=== PATIENT | male | born 1960 | race Caucasian/White ===

== ENCOUNTER 2023-04-04 12:19 | Inpatient (IN) ==
--- NOTE | 2023-04-04 12:35 | ED Triage Note ---
Date of Service April 04, 2023 History of Present Illness This patient was briefly evaluated while in triage. An abbreviated physical exam was performed. This patient is a 63-year-old Male who presents to the ED for evaluation of an injury to his arm from a cat. He went in for chemo (hx of pancreatic CA) and was found to have a fever. He states he was bitten and scratched by his cat a week ago. Physical Exam VITALS: Vitals are noted on the nurse's note and reviewed by myself. GENERAL: This is a 63-year-old male, in no acute distress, well-developed well- nourished. SKIN: Scabbed over lesions to the right forearm with surrounding erythema. MOUTH: Mucous membranes moist. HEART: Regular rate and rhythm without murmurs gallops or rubs. LUNGS: Clear to auscultation bilaterally without wheezes, rales or rhonchi. NEURO: Patient was alert and oriented to person place and time. Initial orders for labs and / or imaging were placed and patient was placed in the waiting area until a bed is available. Please see further documentation for the full ED course.
[2023-04-04] MEDS ORDERED: SODIUM CHLORIDE 0.9% 2,000 ML IV ONE (13:01)
--- NOTE | 2023-04-04 13:04 | Emergency Department Note ---
Impression & Plan Pneumonia, Acute hypokalemia, Cough ED Provider Note HISTORY OF PRESENT ILLNESS: Patient is a 63-year-old male presenting with fever and general malaise. He states that he was going in for a chemotherapy treatment today and had a fever of 101 and was referred to the ER. He has a history of liver cancer and pancreatic cancer. His last chemo treatment was a week ago. He states for the last 3 weeks he has had a nonproductive and persistent cough. He reports in the last few days has been feeling very rundown and fatigued. Denies any shortness of breath or chest pain. He had subjective fevers and chills yesterday. Denies any nausea or vomiting or abdominal pain. He states that his cat recently started scratching at his left arm and he noticed that it was a little bit more red than normal. ROS: as above PHYSICAL EXAM: Constitutional: Patient appears in no acute distress. HENT: Head: Normocephalic and atraumatic. Eyes: EOMI, PERRL Mouth/Throat: Mucous membranes moist. Neck: Trachea midline. Neck supple. Cardiovascular: Tachycardic with regular rhythm. No murmurs, rubs or gallops. Intact distal pulses. Pulmonary/Chest: No respiratory distress. Breath sounds clear and equal bilaterally. No wheezes or rales. Abdominal: Abdomen soft, no tenderness, rebound or guarding. Musculoskeletal: No edema, tenderness or deformity noted. Skin: Warm and dry. Multiple scratches abrasions to left forearm Psychiatric: Appropriate mood and affect for situation. Neurological: Alert and keenly responsive. CN II-XII grossly intact, moving all extremities equally and fully. MDM: - Vitals signs showed fever and tachycardia. - History obtained via patient. Patient presents with fever and general malaise. Patient reports he went to chemotherapy today to receive treatment when he was noted to have a fever and was referred to the ER. He has a history of liver and pancreatic cancer. His last chemo session was last week. He states for the last 3 weeks has had a nonproductive and persistent cough. He states has been feeling very rundown and fatigued. Denies any shortness of breath or chest pain. Reports subjective fevers and chills yesterday. - Chronic conditions affecting care: pancreatic and liver cancer - Differential diagnoses include, but are not limited to: Pneumonia; UTI; viral syndrome; ACS - Order placed for continuous cardiac monitoring. At this time, monitor showed rate of 91 bpm with normal sinus rhythm, per my interpretation. - External medical records reviewed. - Laboratory workup interpreted by myself showed leukopenia (WBC 4.01); hypokalemia (K 3.3); normal procalcitonin; normal lactate; normal procalcitonin - Blood cultures obtained - Patient given 2700 mL NS in ER for fluid resuscitation. Based on his ideal body weight, his sepsis fluid resuscitation would be 2672 mL - Patient started on IV rocephin and doxycycline. - Started on NS @ 125 cc/hr. - Given 1g IV acetaminophen for fever. - Biofire negative - CXR showed infiltrated in right lung, concerning for pneumonia, per my interpretation - Discussion was had with delinquency prevention social worker about patient's case and need for admission - Hospitalist consulted for admission - Patient admitted to [facility] Hospitalist service for further evaluation and management. ASSESSMENT AND PLAN: Diagnosis: pneumonia; cough; hypokalemia Plan: admit Past Med/Surg History Social History Smoking Status: Never smoker Hx Alcohol Use: Yes Preferred Language: Serbian marital status: Feels Safe at Home: Yes Allergies Allergies Allergy/AdvReac Type Severity Reaction Status Date / Time No Known Allergies Allergy Verified 08/10/22 14:55 Home Meds Home Medications Medication Instructions Recorded Confirmed allopurinol 300 mg tablet 300 mg PO QAM 05/02/22 04/04/23 diclofenac sodium 50 mg 50 mg PO TID PRN Pain 05/02/22 04/04/23 tablet,delayed release diltiazem HCl 120 mg capsule,24 120 mg PO DAILY 05/02/22 04/04/23 hr,extended release lisinopril 10 mg tablet 10 mg PO DAILY 05/02/22 04/04/23 aspirin 81 mg tablet,delayed 81 mg PO QAM 08/10/22 04/04/23 release finasteride 5 mg tablet 5 mg PO QAM 08/10/22 04/04/23 omeprazole 20 mg capsule,delayed 20 mg PO DAILYBB 08/10/22 04/04/23 release Fluorouracil 5-Fu 6,100mg 1 dose IV .ONCE 04/04/23 04/04/23 magnesium oxide 400 mg PO QAM 04/04/23 04/04/23 potassium chloride 10 mEq 10 meq PO AMHS 04/04/23 04/04/23 tablet,extended release Results & Data (ED) Vital Signs Vital Signs - 24 hr 04/04/23 12:33 04/04/23 13:25 04/04/23 13:11 Temperature 37.7 C H Temperature Source Oral Pulse Rate 129 H 117 H 117 H Pulse Rate from SpO2 Sensor 117 H Respiratory Rate 20 20 Respiratory Effort / Characteristics Non-Labored Spontaneous Respiratory Depth Normal Respiratory Pattern Regular Blood Pressure 126/76 124/85 Blood Pressure Mean 92 98 Pulse Oximetry 96 95 Oxygen Delivery Method Room Air Room Air Sepsis Recent Fever Within 48 Hours No Sepsis New/Unexplained Change in Mental Status No Sepsis Action Taken by Nursing No Action Required Laboratory Data 04/04/23 13:18 04/04/23 13:18 Lab Results 04/04/23 04/04/23 04/04/23 Range/Units 13:18 13:18 13:18 WBC 4.01 L (4.8-10.8) K/ul RBC 3.32 L (4.70-6.10) M/uL Hgb 10.7 L (14.0-18.0) g/dl Hct 31.5 L (42.0-52.0) % MCV 94.9 (80.0-100.0) fL MCH 32.2 (25.0-34.0) pg MCHC 34.0 (32.0-36.0) g/dL RDW Std Deviation 52.3 H (36.4-46.3) fL RDW Coeff of Ophelia 15.2 H (11.5-14.5) % Plt Count 138 (130-400) K/uL MPV 12.5 H (9.4-12.4) fL Immature Gran % (Auto) 2.7 % Neut % (Auto) 83.7 % Lymph % (Auto) 7.2 % Converse % (Auto) 6.0 % Eos % (Auto) 0.2 % Baso % (Auto) 0.2 % Neut # (Auto) 3.35 (1.40-6.50) K/uL Lymph # (Auto) 0.29 L (1.20-3.40) K/uL Converse # (Auto) 0.24 (0.11-0.59) K/uL Eos # (Auto) 0.01 (0.00-0.50) K/uL Baso # (Auto) 0.01 (0.00-0.20) K/uL Immature Gran # (Auto) 0.11 (0.01-0.20) K/uL Sodium 136 (136-145) mmol/L Potassium 3.3 L (3.5-5.1) mmol/L Chloride 104 (98-107) mmol/L Carbon Dioxide 21 (21-32) mmol/L Anion Gap 11 (3-11) BUN 15 (6-23) mg/dl Creatinine 0.67 (0.6-1.4) mg/dl Est Cr Clr Drug Dosing 155.2 ml/min Est GFR ( Amer) 120.2 ml/min Est GFR (Non-Af Amer) 103.7 ml/min BUN/Creatinine Ratio 22.4 H (10-20) Glucose 113 H (70-99(Fasting)) mg/dl Lactate (0.4-2.0) mmol/L Calcium 8.4 L (8.6-10.3) mg/dl Total Bilirubin 0.6 (0.2-1.0) mg/dl AST 49 H (13-39) U/L ALT 37 (7-52) U/L Alkaline Phosphatase 88 (34-104) U/L Total Protein 6.2 (6.0-8.3) gm/dl Albumin 3.7 (3.4-5.0) gm/dl Globulin 2.5 (2.5-4.0) gm/dl Albumin/Globulin Ratio 1.5 (0.9-2) Procalcitonin 0.37 (0-0.5) ng/ml Adenovirus (PCR) (NotDetected) B. pertussis DNA (PCR) (NotDetected) B.parapertussis DNA PCR (NotDetected) C. pneumoniae DNA (PCR) (NotDetected) Coronavirus OC43 (PCR) (NotDetected) Coronavirus HKU1 (PCR) (NotDetected) Coronavirus 229E (PCR) (NotDetected) SARS-CoV-2 (PCR) (NotDetected) Coronavirus NL63 (PCR) (NotDetected) Human Metapneumovir PCR (NotDetected) Influenza Type A (PCR) (NotDetected) Influenza Type B (PCR) (NotDetected) M. pneumoniae (PCR) (NotDetected) Parainfluenza 1 (PCR) (NotDetected) Parainfluenza 2 (PCR) (NotDetected) Parainfluenza 3 (PCR) (NotDetected) Parainfluenza 4 (PCR) (NotDetected) RSV (PCR) (NotDetected) Entero/Rhino (PCR) (NotDetected) 04/04/23 04/04/23 Range/Units 13:18 14:25 WBC (4.8-10.8) K/ul RBC (4.70-6.10) M/uL Hgb (14.0-18.0) g/dl Hct (42.0-52.0) % MCV (80.0-100.0) fL MCH (25.0-34.0) pg MCHC (32.0-36.0) g/dL RDW Std Deviation (36.4-46.3) fL RDW Coeff of Ophelia (11.5-14.5) % Plt Count (130-400) K/uL MPV (9.4-12.4) fL Immature Gran % (Auto) % Neut % (Auto) % Lymph % (Auto) % Converse % (Auto) % Eos % (Auto) % Baso % (Auto) % Neut # (Auto) (1.40-6.50) K/uL Lymph # (Auto) (1.20-3.40) K/uL Converse # (Auto) (0.11-0.59) K/uL Eos # (Auto) (0.00-0.50) K/uL Baso # (Auto) (0.00-0.20) K/uL Immature Gran # (Auto) (0.01-0.20) K/uL Sodium (136-145) mmol/L Potassium (3.5-5.1) mmol/L Chloride (98-107) mmol/L Carbon Dioxide (21-32) mmol/L Anion Gap (3-11) BUN (6-23) mg/dl Creatinine (0.6-1.4) mg/dl Est Cr Clr Drug Dosing ml/min Est GFR ( Amer) ml/min Est GFR (Non-Af Amer) ml/min BUN/Creatinine Ratio (10-20) Glucose (70-99(Fasting)) mg/dl Lactate 1.3 (0.4-2.0) mmol/L Calcium (8.6-10.3) mg/dl Total Bilirubin (0.2-1.0) mg/dl AST (13-39) U/L ALT (7-52) U/L Alkaline Phosphatase (34-104) U/L Total Protein (6.0-8.3) gm/dl Albumin (3.4-5.0) gm/dl Globulin (2.5-4.0) gm/dl Albumin/Globulin Ratio (0.9-2) Procalcitonin (0-0.5) ng/ml Adenovirus (PCR) Not Detected (NotDetected) B. pertussis DNA (PCR) Not Detected (NotDetected) B.parapertussis DNA PCR Not Detected (NotDetected) C. pneumoniae DNA (PCR) Not Detected (NotDetected) Coronavirus OC43 (PCR) Not Detected (NotDetected) Coronavirus HKU1 (PCR) Not Detected (NotDetected) Coronavirus 229E (PCR) Not Detected (NotDetected) SARS-CoV-2 (PCR) Not Detected (NotDetected) Coronavirus NL63 (PCR) Not Detected (NotDetected) Human Metapneumovir PCR Not Detected (NotDetected) Influenza Type A (PCR) Not Detected (NotDetected) Influenza Type B (PCR) Not Detected (NotDetected) M. pneumoniae (PCR) Not Detected (NotDetected) Parainfluenza 1 (PCR) Not Detected (NotDetected) Parainfluenza 2 (PCR) Not Detected (NotDetected) Parainfluenza 3 (PCR) Not Detected (NotDetected) Parainfluenza 4 (PCR) Not Detected (NotDetected) RSV (PCR) Not Detected (NotDetected) Entero/Rhino (PCR) Not Detected (NotDetected) Administered Medications Doxycycline Hyclate 100 mg/ (Dextrose) 100 mls @ 50 mls/hr IV NOW STA Stop: 04/04/23 16:37 Last Admin: 04/04/23 15:55 Dose: 50 mls/hr Documented By: VIK Discontinued Medications Sodium Chloride (Nss) 2,000 mls @ 999 mls/hr IV .Q2H1M ONE Stop: 04/04/23 15:01 Last Infusion: 04/04/23 15:45 Dose: 0 mls/hr Documented By: Admin: 04/04/23 13:35 Dose: 999 mls/hr Documented By: ANA Acetaminophen (Ofirmev) 1,000 mg in 100 mls @ 400 mls/hr IV NOW STA Stop: 04/04/23 14:07 Last Infusion: 04/04/23 14:27 Dose: 0 mls/hr Documented By: Admin: 04/04/23 14:12 Dose: 400 mls/hr Documented By: SONY Ceftriaxone Sodium (Rocephin) 2,000 mg in 50 mls @ 100 mls/hr IV NOW STA Stop: 04/04/23 15:07 Last Infusion: 04/04/23 15:45 Dose: 0 mls/hr Documented By: Admin: 04/04/23 15:10 Dose: 100 mls/hr Documented By: DEISY Sodium Chloride (Nss) 500 mls @ 700 mls/hr IV .Q43M ONE Stop: 04/04/23 15:20 Last Admin: 04/04/23 15:55 Dose: 700 mls/hr Documented By: VIK Imaging Data Radiologist's Impression: Chest X-Ray 04/04/23 12:35 XR chest 1V portable HISTORY: cough, fever COMPARISON: None. FINDINGS: No pneumothorax or no pleural effusions. The cardiac silhouette is normal in size. The right jugular Port-A-Cath terminates in the SVC. Small patchy density within the right medial lung base. This may represent a developing pneumonia. Otherwise, lungs are clear. No evidence for pulmonary edema. IMPRESSION: Small patchy density within the right medial lung base. This likely represents a developing pneumonia. ACT 112: Negative or not required by law. Electronically signed by: Benson Sweeney M.D. 04/04/2023 2:11 PM Discharge Plan Visit Data Chief Complaint: Referred by Doctor Stated Complaint: FEVER, STAGE 4 LIVER CANCER, REF BY DR FAUSTIN Provider: Yara Howe Discharge Problem: Pneumonia, Acute hypokalemia, Cough Forms Stand Alone Forms: My [facility] Prescriptions Prescriptions: No Action allopurinol 300 mg tablet 300 mg PO QAM lisinopril 10 mg tablet 10 mg PO DAILY diclofenac sodium 50 mg tablet,delayed release (DR/EC) 50 mg PO TID PRN (Reason: Pain) Rx Instructions: take with food diltiazem HCl 120 mg capsule,extended release 24 hr 120 mg PO DAILY omeprazole 20 mg capsule,delayed release(DR/EC) 20 mg PO DAILYBB finasteride 5 mg tablet 5 mg PO QAM aspirin 81 mg Tablet,Delayed Release (Dr/Ec) 81 mg PO QAM potassium chloride 10 mEq tablet extended release 10 meq PO AMHS magnesium oxide 400 mg magnesium Tablet 400 mg PO QAM Fluorouracil 5-Fu 6,100mg 1 dose IV .ONCE Rx Instructions: start 04/04/23 end 04/05/23 Referrals Referrals: Ray Royal MD [Primary Care Provider] -
[2023-04-04] MEDS ORDERED: ACETAMINOPHEN 1,000 MG/100 ML VIAL IV STA (13:53)
[2023-04-04 13:55] LABS: Basophils # (auto) 0.01 K/uL (0.00-0.20); Basophils % (auto) 0.2 %; Eosinophils # (auto) 0.01 K/uL (0.00-0.50); Eosinophils % (auto) 0.2 %; Hematocrit (blood only) 31.5 % (42.0-52.0); Hemoglobin 10.7 g/dl (14.0-18.0); Immature Granulocytes # (auto) 0.11 K/uL (0.01-0.20); Immature Granulocytes % (auto) 2.7 %; Lymphocytes # (auto) 0.29 K/uL (1.20-3.40); Lymphocytes % (auto) 7.2 %; Mean Corpuscular Hemoglobin 32.2 pg (25.0-34.0); Mean Corpuscular Volume 94.9 fL (80.0-100.0); Mean Platelet Volume 12.5 fL (9.4-12.4); Monocytes # (auto) 0.24 K/uL (0.11-0.59); Neutrophils # (auto) 3.35 K/uL (1.40-6.50); Neutrophils % (auto) 83.7 %; Platelet Count 138 K/uL (130-400); RDW Coefficient of Variation 15.2 % (11.5-14.5); RDW Standard Deviation 52.3 fL (36.4-46.3); Red Blood Count 3.32 M/uL (4.70-6.10); White Blood Count 4.01 K/ul (4.8-10.8)
--- NOTE | 2023-04-04 14:12 | XRay Report ---
XR chest 1V portable HISTORY: cough, fever COMPARISON: None. FINDINGS: No pneumothorax or no pleural effusions. The cardiac silhouette is normal in size. The righ t jugular Port-A-Cath terminates in the SVC. Small patchy density within the right medial lung base. This may represent a developing pneumonia. Otherwise, lungs are clear. No evidence for pulmonary aleshia a. IMPRESSION: Small patchy density within the right medial lung base. This likely represents a developing pneumonia . ACT 112: Negative or not required by law. Electronically signed by: Benson Sweeney M.D. 04/04/2023 2:11 PM
[2023-04-04 14:17] LABS: Albumin Globulin Ratio 1.5 (0.9-2); Albumin Level 3.7 gm/dl (3.4-5.0); BUN Creatinine Ratio 22.4 (10-20); Bilirubin,Total 0.6 mg/dl (0.2-1.0); Calcium 8.4 mg/dl (8.6-10.3); Creatinine Clr Calc Pharmacy 155.2 ml/min; Est GFR (African American) 120.2 ml/min; Est GFR (Non-African American) 103.7 ml/min; Globulin 2.5 gm/dl (2.5-4.0); Potassium 3.3 mmol/L (3.5-5.1); Total Protein 6.2 gm/dl (6.0-8.3)
[2023-04-04] MEDS ORDERED: cefTRIAXone SODIUM 2,000 MG/50 ML BAG IV STA (14:38)
[2023-04-04] MEDS ORDERED: SODIUM CHLORIDE 0.9% 500 ML IV ONE (14:38)
[2023-04-04] MEDS ORDERED: DOXYCYCLINE HYCLATE 100 MG in DEXTROSE 5% MINI-B 100 ML IV STA (14:38)
[2023-04-04 15:29] LABS: Adenovirus PCR Not Detected (NotDetected); Bordetella parapertussis PCR Not Detected (NotDetected); Bordetella pertussis PCR Not Detected (NotDetected); Chlamydia pneumoniae PCR Not Detected (NotDetected); Coronavirus 229E PCR Not Detected (NotDetected); Coronavirus CoV-2 (COVID19)PCR Not Detected (NotDetected); Coronavirus HKU1 PCR Not Detected (NotDetected); Coronavirus NL63 PCR Not Detected (NotDetected); Coronavirus OC43PCR Not Detected (NotDetected); Human Metapneumovirus PCR Not Detected (NotDetected); Influenza A PCR Not Detected (NotDetected); Influenza B PCR Not Detected (NotDetected); Mycoplasma pneumoniae PCR Not Detected (NotDetected); Parainfluenza Virus 1 PCR Not Detected (NotDetected); Parainfluenza Virus 2 PCR Not Detected (NotDetected); Parainfluenza Virus 3 PCR Not Detected (NotDetected); Parainfluenza Virus 4 PCR Not Detected (NotDetected); Respiratory Syncytial VirusPCR Not Detected (NotDetected); Rhinovirus/Enterovirus PCR Not Detected (NotDetected)
[2023-04-04] MEDS ORDERED: ACETAMINOPHEN 325 MG TAB PO PRN (16:00)
[2023-04-04] MEDS ORDERED: POLYETHYLENE (MIRALAX) 17 GM PACK PO PRN (16:00)
[2023-04-04] MEDS ORDERED: MAGNESIUM HYDROXIDE SUSP 30 ML UDC PO PRN (16:00)
[2023-04-04] MEDS ORDERED: ONDANSETRON INJ 2 MG/ML 2 ML VIAL IV PRN (16:00)
[2023-04-04] MEDS ORDERED: ALUMINUM/MAGNESIUM SUSP 30 ML UDC PO PRN (16:00)
--- NOTE | 2023-04-04 16:09 | History & Physical Report ---
Date of Service April 04, 2023 Assessment & Plan (1) Pneumonia: (2) Cough: (3) 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: (4) BPH (benign prostatic hyperplasia): (5) Gout: (6) GERD (gastroesophageal reflux disease): Plan Mr. Holm is a 63 year old male that presents to the ED with complaints of a dry non-productive cough over the past three weeks; that he correlates around the same time he received his influenza vaccine. Patient has pancreatic cancer, follows with Dr. Torrez, current treatment includes modified FOLFIRINOX Q 14 days. He went to have his chemotherapy and they would not administer his chemo due to having a fever. CXR: Small patchy density within the right medial lung base. This likely represents a developing pneumonia. He is at high risk for febrile neutropenia, he will receive prophylactic Pegfilgrastim to prevent the febrile neutropenia. Procal negative, No lactic acidosis, WBC 4.01. Pt was diagnosed with pancreatic cancer on 10/03/22. He was initially having upper abdominal pain with abnormal LFT's and elevated lipase level. He was initially evaluated at [facility] and had a CT scan of his abdomen on 08/08/22 revealing an ill-defined hypodense lesion involving the pancreatic tail measuring 2.8 x 2.3 x 2.5 cm Most recent imaging includes an MRI MRCP 08/09/22 at [facility]; no focal liver abnormality notes. Splenomegaly; spleen was measuring 17.5 cm. He had an upper GI endoscopic EUS and biopsy from the pancreatic tail mass indicated adenocarcinoma Jul 2022. Chest CT in 11/15 negative for metastatic disease. He was evaluated by Dr. Howard and underwent diagnostic laparoscopy and had a liver wedge resection on 10/26/22; biopsy from that indicated metastatic adenocarcinoma. biofire neg, lactate normal, procal negative, WBC 4.01. Will treat patient for pneumonia and notify heme onc of patients admission. Will replace K+ and obtain CXR in 48 hours; will adjust abx based on culture results. Pneumonia: Cough: CXR: Small patchy density within the right medial lung base. This likely represents a developing pneumonia. Procalcitonin negative Lactate 1.3 biofire negative Rocephin + Doxy started in ED;continue and adjust based on blood and sputum cultures Mucinex PO nebs Q6 PRN CXR 48 hours Hypokalemia: serum K+ 3.3; replace with 40 mEq PO Trend K+ in AM Metastatic pancreatic adenocarcinoma with liver mets: -diagnosed with pancreatic cancer on 10/03/22; follows with Dr. Torrez -initially evaluated at [facility] and had a CT scan of his abdomen on 08/08/22 revealing an ill-defined hypodense lesion involving the pancreatic tail measuring 2.8 x 2.3 x 2.5 cm -He is at high risk for febrile neutropenia, he will receive prophylactic Pegfilgrastim to prevent the febrile neutropenia. -most recent PET scan: 01/31/23: 1. Slight decrease in activity of the pancreatic mass, though there appears to be increased involvement of the adjacent stomach. 2. Decreased but persistent activity associated with hepatic metastases. 3. No new hypermetabolic lesions. takes prochlorperazine maleate PRN;continue takes Creon; continue HTN: chronic stable takes Lisinopril and Cardizem; continue BPH: chronic stable takes finasteride and silodosin ;continue Gout: chronic stable takes Allopurinol;continue GERD: chronic stable takes omeprazole;continue Disposition: PCP: Dr. Solomon Code Status: Full Code VTE Prophylaxis: I spent a total of 87 minutes coordinating, documenting, and providing care for this patient excluding time spent in the performance of separately billed services. All of the aforementioned completed while collaborating with the assigned attending physician for a full treatment plan. Please see their addendum for further details. History of Present Illness Chief Complaint: dry cough/PNA/liver and pancreatic cancer Primary Care Provider: Ray Royal MD Mr. Holm is a 63 year old male that presents to the ED with complaints of a dry non-productive cough over the past three weeks with wheezes; that he correlates around the same time he received his influenza vaccine. He stated that he woke up this AM shivering, but is unsure if he had a fever. Patient has pancreatic cancer, follows with Dr. Torrez, current treatment includes modified FOLFIRINOX Q 14 days. He went to have his chemotherapy and they would not administer his chemo due to having a fever. He notices he bruises easily; was scratched by his cat most recently over the past few days. Erythema noted at site. Pt was diagnosed with pancreatic cancer on 10/03/22. He was initially having upper abdominal pain with abnormal LFT's and elevated lipase level. 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 Will hold phlebotomy for now. ( Ferritin level was around 80 ( 09/14/2022). Most recent imaging includes an MRI MRCP 08/09/22 at [facility]; no focal liver abnormality notes. Splenomegaly; spleen was measuring 17.5 cm. He had an upper GI endoscopic EUS and biopsy from the pancreatic tail mass indicated adenocarcinoma Jul 2022. Chest CT in 11/15 negative for metastatic disease. He was evaluated by Dr. Howard and underwent diagnostic laparoscopy and had a liver wedge resection on 10/26/22; biopsy from that indicated metastatic adenocarcinoma. On 11/22/22 he had a PET scan: 1. 4.7 x 2.7 cm metabolically-active mass involving the distal pancreatic body and tail, consistent with biopsy-proven malignancy. 2. Multiple metabolically-active liver metastases. 3. Metabolically-active wall thickening of the cecum at the ileocecal valve, concerning for colonic malignancy. Further evaluation can be obtained with colonoscopy and biopsy. 4. Small left upper abdominal omental infarct status post recent surgery. repeat PET on 01/31/23: 1. Slight decrease in activity of the pancreatic mass, though there appears to be increased involvement of the adjacent stomach. 2. Decreased but persistent activity associated with hepatic metastases. 3. No new hypermetabolic lesions. CXR: Small patchy density within the right medial lung base. This likely represents a developing pneumonia. He is at high risk for febrile neutropenia, he will receive prophylactic Pegfilgrastim to prevent the febrile neutropenia. Patient denies HALL, dizziness, visual or auditory changes, urine or bowel changes, recent falls or trauma. Will treat patient for pneumonia and notify heme onc of patients admission. Will replace K+ and obtain CXR in 48 hours; will adjust abx based on culture results. Patient will be admitted for further evaluation and management. Please see A/P for further details. Allergies Allergy/AdvReac Type Severity Reaction Status Date / Time No Known Allergies Allergy Verified 08/10/22 14:55 Home Medications Medication Instructions Recorded Confirmed Type allopurinol 300 mg tablet 300 mg PO QAM 05/02/22 04/04/23 History diclofenac sodium 50 mg 50 mg PO TID PRN Pain 05/02/22 04/04/23 History tablet,delayed release diltiazem HCl 120 mg capsule,24 120 mg PO DAILY 05/02/22 04/04/23 History hr,extended release lisinopril 10 mg tablet 10 mg PO DAILY 05/02/22 04/04/23 History aspirin 81 mg tablet,delayed 81 mg PO QAM 08/10/22 04/04/23 History release finasteride 5 mg tablet 5 mg PO QAM 08/10/22 04/04/23 History omeprazole 20 mg capsule,delayed 20 mg PO DAILYBB 08/10/22 04/04/23 History release Fluorouracil 5-Fu 6,100mg 1 dose IV .ONCE 04/04/23 04/04/23 History lidocaine-prilocaine 2.5 %-2.5 % 1 applic UD 04/04/23 04/04/23 History topical cream rnetus-uhgjdiht-eqigbpv 1 cap PO QID 04/04/23 04/04/23 History 12,000-38,000-60,000 unit capsule,delayed rel (Creon) loperamide 2 mg capsule 2 mg PO UD PRN Diarrhea 04/04/23 04/04/23 History loratadine 10 mg tablet (Allergy 5 mg PO UD 04/04/23 04/04/23 History Relief (loratadine)) magnesium oxide 400 mg PO QAM 04/04/23 04/04/23 History ondansetron HCl 8 mg tablet 8 mg PO Q8 PRN Nausea 04/04/23 04/04/23 History potassium chloride 10 mEq 10 meq PO AMHS 04/04/23 04/04/23 History tablet,extended release prochlorperazine maleate 10 mg 10 mg PO Q6 PRN Nausea 04/04/23 04/04/23 History tablet silodosin 8 mg capsule 8 mg PO QAM 04/04/23 04/04/23 History Past Med/Surg History Medical History (Updated 04/04/23 @ 16:26 by NOELLE Sanchez) 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 GERD (gastroesophageal reflux disease) Gout Social History (Reviewed 03/02/23 @ 14:13 by SAUL Early Smoking Status: Former smoker Smoking End Date: 07/2021; Second Hand Exposure: No; Tobacco Cessation Education Requested by Patient: No Hx Alcohol Use: No Hx Substance Use: No Preferred Language: Maltese Communication Ability: Effective Appliance Mechanic Required: No Beliefs That Will Affect Care: Mosque Mosque Beliefs: Mosque marital status: Current Living Situation: Alone Other Information That Helps Us Care for You: No Feels Safe at Home: Yes Safety Concerns: Feels Safe At This Time Assistive Devices: Glasses Review of Systems Review of Systems: Neuro: (-) Falls, trauma, slurred speech HEENT: (-) HALL, dizziness, dysphagia, visual or auditory changes CV: (-) CP, palpitations, swelling Resp: (-) SOB GI: (-) appetite changes, N/V/D, bowel changes : (-) urinary changes Skin: (-) rashes (+) erythema Psych: (-) anxiety, depression Physical Exam Physical Exam: Neuro: AAOx4, PERRLA, no aphagia, memory changes, CNII-XII grossly intact HEENT: head normocephalic, moist mucus membranes CV: S1/S2, (-) M/G/R, (-) edema, cap refill < 3 seconds Resp: Lungs expiratory an inspiratory wheezes. On RA GI: Abdomen S/NT/ND, Ax4 bowel sounds, (-) CVA tenderness Musculoskeletal: 5/5 B/L UE strength, 5/5 B/L LE strength. No gait disturbance Skin: (-) rashes , (-) erythema. Psych: euthymic mood Results & Data Results & Data Vital Signs (Past 12 Hours) Vital Signs Temp Pulse Resp BP Pulse Ox O2 Del Method 04/04/23 13:11 117 H 20 124/85 95 Room Air 04/04/23 13:25 117 H 04/04/23 12:33 37.7 C H 129 H 20 126/76 96 Room Air Laboratory Results Short CBC 04/04/23 Range/Units 13:18 WBC 4.01 L (4.8-10.8) K/ul Hgb 10.7 L (14.0-18.0) g/dl Hct 31.5 L (42.0-52.0) % Plt Count 138 (130-400) K/uL BMP 04/04/23 13:18 Sodium 136 Potassium 3.3 L Chloride 104 Carbon Dioxide 21 BUN 15 Creatinine 0.67 Glucose 113 H Calcium 8.4 L Liver Function 04/04/23 Range/Units 13:18 Total Bilirubin 0.6 (0.2-1.0) mg/dl AST 49 H (13-39) U/L ALT 37 (7-52) U/L Alkaline Phosphatase 88 (34-104) U/L Albumin 3.7 (3.4-5.0) gm/dl Diagnostic Findings Chest X-Ray 04/04/23 12:35 XR chest 1V portable HISTORY: cough, fever COMPARISON: None. FINDINGS: No pneumothorax or no pleural effusions. The cardiac silhouette is normal in size. The right jugular Port-A-Cath terminates in the SVC. Small patchy density within the right medial lung base. This may represent a developing pneumonia. Otherwise, lungs are clear. No evidence for pulmonary edema. IMPRESSION: Small patchy density within the right medial lung base. This likely represents a developing pneumonia. ACT 112: Negative or not required by law. Electronically signed by: Benson Sweeney M.D. 04/04/2023 2:11 PM Code Status & VTE Plan Code Status Full Code in the event of cardiac or respiratory arest VTE Prophylaxis Plan VTE Prophylaxis will be ordered: Yes Supervising Physician Co-Signing Physician Notes Attending addendum: The patient was seen and examined in emergency room He has been complaining of cough with productive of whitish phlegm, wheezing and mild shortness of breath for the last 1 to 2-week Generally weak and lethargic and is status post chemo 2 weeks back No chest pain or palpitation, no fever, no abdominal pain nausea no vomiting On examination Lying in bed with acute distress due to cough and wheezing Hemodynamically stable with blood pressure on the upper side at 141/77 Chest-decreased breath sounds bilaterally with wheezing and coarse crackles at the bases Heart- S1-S2, regular Abdomen -benign Extremities- negative for any edema CNSalert, awake and oriented x3 His admission labs, EKG and imaging studies reviewed Has pneumonia/bronchitis with wheezing status post chemo for pancreatic adenocarcinoma with liver mets We will start cefepime and doxycycline, symptomatic treatment for wheezing and also for cough Agree with assessment and plan as outlined above by Dariela Chan
[2023-04-04 16:21] LABS: Magnesium 1.1 mg/dl (1.7-2.4); Phosphorus 2.8 mg/dl (2.5-4.9)
[2023-04-04 16:28] LABS: Troponin I High Sensitivity 15.5 pg/ml (0-20)
[2023-04-04 16:41] LABS: Appearance Urine Clear (Clear); Bilirubin Urine Negative (Negative); Blood Urine Negative (Negative); Color Urine Yellow; Glucose Urine UA Negative (Negative); Ketones Urine Negative (Negative); Leukocyte Esterase Urine Negative (Negative); Nitrite Urine Negative (Negative); Protein Urine Negative (Negative); Specific Gravity Urine 1.015 (1.000-1.030); Urobilinogen Urine Negative (Negative)
[2023-04-04] MEDS ORDERED: POTASSIUM CHLORIDE CRTAB 20 MEQ TABCR PO STA ×2 (16:50→21:13)
[2023-04-04] MEDS ORDERED: ALBUT/IPRATROP 3MG/0.5MG NEB 3 ML VIAL NEB PRN (17:29)
[2023-04-04] MEDS ORDERED: MAGNESIUM SULFATE 1GM / D5W BAG IV ONE (17:50)
[2023-04-04] MEDS: PANCREAZE (LIPASE 10,500U) CAP PO SCH ×2 (17:52→21:55)
[2023-04-04] MEDS: HYDROcodone/HOMATROPINE SYRUP 5MG/1.5MG 5ML UDP PO PRN (18:46)
[2023-04-04] MEDS: MAGNESIUM SULFATE / D5W 1 GM/100 ML BAG IV SCH ×2 (19:34→20:32)
[2023-04-04] MEDS: guaiFENesin 600 MG TABCR PO SCH (20:28)
[2023-04-04] MEDS ORDERED: CEFEPIME 2,000 MG in SYRINGE 0 ML IV SCH (21:00)
[2023-04-04] MEDS ORDERED: METOPROLOL TARTRATE 1 MG/ML VIAL IV STA (21:12)
[2023-04-04] MEDS ORDERED: NSS + 20MEQ KCL 20 MEQ/1,000 ML BAG IV ONE (21:13)
[2023-04-04] MEDS ORDERED: POTASSIUM CHLORIDE PWD 20 MEQ PACK PO STA (21:16)
--- NOTE | 2023-04-04 21:17 | Communication Note ---
Date of Service: April 04, 2023
[2023-04-04] MEDS ORDERED: PIPERACILLIN/TAZOBACTAM 4.5 GM in DEXTROSE 5% MINI-B 100 ML IV ONE (21:30)
[2023-04-04] MEDS ORDERED: methylPREDNISolone 20 MG in SYRINGE 0 ML IV STA (21:37)
[2023-04-04] MEDS ORDERED: IPRATROPIUM BROMIDE NEB SOLN 0.02% 2.5 ML VIAL INH STA (21:38)
[2023-04-04] MEDS ORDERED: XOPENEX/ATROVENT 1.25mg/0.5MG NEB COMBO NEB STA (21:38)
[2023-04-04] MEDS ORDERED: LEVALBUTEROL 1.25 MG/3 ML NEB NEB PRN (21:38)
[2023-04-04] MEDS ORDERED: LEVALBUTEROL 1.25 MG/3 ML NEB NEB STA (21:38)
[2023-04-04] MEDS ORDERED: THIAMINE HCL 100 MG in SYRINGE 9 ML IV STA (22:20)
[2023-04-04 23:04] LABS: Hematocrit (blood only) 28.7 % (42.0-52.0); Hemoglobin 9.6 g/dl (14.0-18.0); Mean Corpuscular Hemoglobin 32.4 pg (25.0-34.0); Mean Corpuscular Hgb Conc 33.4 g/dL (32.0-36.0); Mean Platelet Volume 13.1 fL (9.4-12.4); Platelet Count 100 K/uL (130-400); RDW Coefficient of Variation 15.3 % (11.5-14.5); RDW Standard Deviation 52.5 fL (36.4-46.3); Red Blood Count 2.96 M/uL (4.70-6.10); White Blood Count 2.88 K/ul (4.8-10.8)
[2023-04-05] MEDS: MAGNESIUM SULFATE / D5W 1 GM/100 ML BAG IV SCH ×2 (00:11→02:12)
[2023-04-05] MEDS ORDERED: XOPENEX/ATROVENT 1.25mg/0.5MG NEB COMBO NEB SCH (01:00)
[2023-04-05] MEDS: IPRATROPIUM BROMIDE NEB SOLN 0.02% 2.5 ML VIAL INH SCH ×4 (03:21→18:55)
[2023-04-05] MEDS: LEVALBUTEROL 1.25 MG/3 ML NEB NEB SCH ×4 (03:21→18:55)
[2023-04-05] MEDS: DOXYCYCLINE HYCLATE 100 MG in DEXTROSE 5% MINI-B 100 ML IV SCH ×2 (03:57→16:26)
[2023-04-05] MEDS ORDERED: PIPERACILLIN/TAZOBACTAM 4.5 GM in DEXTROSE 5% MINI-B 100 ML IV SCH (04:00)
[2023-04-05] MEDS: PANTOprazole 40 MG TAB PO SCH (05:59)
[2023-04-05 06:04] LABS: Hematocrit (blood only) 30.5 % (42.0-52.0); Hemoglobin 9.8 g/dl (14.0-18.0); Mean Corpuscular Hgb Conc 32.1 g/dL (32.0-36.0); Mean Corpuscular Volume 99.7 fL (80.0-100.0); Mean Platelet Volume 11.9 fL (9.4-12.4); Platelet Count 106 K/uL (130-400); RDW Coefficient of Variation 15.6 % (11.5-14.5); RDW Standard Deviation 55.2 fL (36.4-46.3); Red Blood Count 3.06 M/uL (4.70-6.10); White Blood Count 2.31 K/ul (4.8-10.8)
[2023-04-05 06:27] LABS: Albumin Globulin Ratio 1.4 (0.9-2); Albumin Level 3.3 gm/dl (3.4-5.0); BUN Creatinine Ratio 19.4 (10-20); Bilirubin,Total 0.5 mg/dl (0.2-1.0); Calcium 8.2 mg/dl (8.6-10.3); Creatinine Clr Calc Pharmacy 167.6 ml/min; Est GFR (African American) 124.1 ml/min; Est GFR (Non-African American) 107.1 ml/min; Globulin 2.3 gm/dl (2.5-4.0); Potassium 4.6 mmol/L (3.5-5.1); Total Protein 5.6 gm/dl (6.0-8.3)
[2023-04-05 06:33] LABS: INR 1.1 (0.9-1.1); Prothrombin Time 12.2 Seconds (9.0-12.0)
[2023-04-05] MEDS ORDERED: cefTRIAXone SODIUM 2,000 MG in DEXTROSE 5 % MINI-B 50 ML IV SCH (08:00)
[2023-04-05] MEDS: HYDROcodone/HOMATROPINE SYRUP 5MG/1.5MG 5ML UDP PO PRN ×2 (08:22→14:46)
[2023-04-05] MEDS: dilTIAZem HCL 120 MG CAPCR PO SCH (08:23)
[2023-04-05] MEDS: FINASTERIDE 5 MG TAB PO SCH (08:23)
[2023-04-05] MEDS: TAMSULOSIN HCL 0.4 MG CAP PO SCH (08:23)
[2023-04-05] MEDS: allopurinoL 300 MG TAB PO SCH (08:23)
[2023-04-05] MEDS: ASPIRIN 81 MG ECTAB PO SCH (08:23)
[2023-04-05] MEDS: DOXYCYCLINE HYCLATE 100 MG CAP PO SCH ×2 (08:23→20:37)
[2023-04-05] MEDS: guaiFENesin 600 MG TABCR PO SCH ×2 (08:23→20:38)
[2023-04-05] MEDS: lisinopril 10 MG TAB PO SCH (08:23)
[2023-04-05] MEDS: ENOXAPARIN INJ 40 MG/0.4 ML SYR SQ SCH (08:24)
[2023-04-05] MEDS ORDERED: FOLIC ACID 1 MG TAB PO SCH (09:00)
[2023-04-05] MEDS ORDERED: MULTIVITAMIN TAB PO SCH (09:00)
[2023-04-05] MEDS ORDERED: THIAMINE HCL 100 MG TAB PO SCH (09:00)
[2023-04-05] MEDS: PANCREAZE (LIPASE 10,500U) CAP PO SCH ×4 (09:36→22:17)
[2023-04-05] MEDS ORDERED: CEFEPIME 2,000 MG in SYRINGE 0 ML IV SCH (10:00)
[2023-04-05] MEDS ORDERED: GLUCOSE 40% GEL 15 GM TUBE PO PRN (15:16)
[2023-04-05] MEDS ORDERED: GLUCOSE 10 TAB/TUBE PO PRN (15:16)
[2023-04-05] MEDS ORDERED: GLUCAGON FOR INJ 1 MG VIAL SQ PRN (15:16)
[2023-04-05] MEDS ORDERED: CARBOHYDRATES FOR HYPOGLYCEMIA PO PRN (15:16)
[2023-04-05] MEDS ORDERED: DEXTROSE 50% 50 ML SYRINGE IV PRN (15:16)
--- NOTE | 2023-04-05 15:22 | Hospitalist Progress Note ---
Date of Service April 05, 2023 Assessment & Plan (1) Pneumonia: (2) Cough: (3) 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: (4) BPH (benign prostatic hyperplasia): (5) Gout: (6) GERD (gastroesophageal reflux disease): Plan Mr. Holm is a 63 year old male that presents to the ED with complaints of a dry non-productive cough over the past three weeks; that he correlates around the same time he received his influenza vaccine. Patient has pancreatic cancer, follows with Dr. Torrez, current treatment includes modified FOLFIRINOX Q 14 days. He went to have his chemotherapy and they would not administer his chemo due to having a fever. C XR: Small patchy density within the right medial lung base. This likely represents a developing pneumonia. He is at high risk for febrile neutropenia, he will receive prophylactic Pegfilgrastim to prevent the febrile neutropenia. Pneumonia: CXR on admission personally reviewed small patchy density within the right medial lung base. This likely represents a developing pneumonia. Lactate 1.3 biofire negative Blood culture no growth in 24 hours Continue DuoNebs, flutter valve for airway clearance Continue on Rocephin and doxycycline for pneumonia. Hypokalemia: Repleted Metastatic pancreatic adenocarcinoma with liver mets: Pancytopenia secondary to chemotherapy -diagnosed with pancreatic cancer on 10/03/22; follows with Dr. Torrez -initially evaluated at [facility] and had a CT scan of his abdomen on 08/08/22 revealing an ill-defined hypodense lesion involving the pancreatic tail measuring 2.8 x 2.3 x 2.5 cm -He is at high risk for febrile neutropenia, he will receive prophylactic Pegfilgrastim to prevent the febrile neutropenia. -most recent PET scan: 01/31/23: 1. Slight decrease in activity of the pancreatic mass, though there appears to be increased involvement of the adjacent stomach. 2. Decreased but persistent activity associated with hepatic metastases. 3. No new hypermetabolic lesions. takes prochlorperazine maleate PRN;continue takes Creon; continue HTN: chronic stable takes Lisinopril and Cardizem; continue BPH: chronic stable takes finasteride and silodosin ;continue Gout: chronic stable takes Allopurinol;continue GERD: chronic stable takes omeprazole;continue Disposition: PCP: Dr. Solomon Code Status: Full Code VTE Prophylaxis: Time spent evaluating patient, direct bedside care, chart review, placing orders, interpretation of diagnostic studies, discussion with consultants, patient, and family members, as well as other required patient management activities is 60 minutes. Please note the above document was generated using voice recognition software. It may contain grammatical, syntax or spelling errors. Any formal questions or concerns about the content, text or information contained within the body of this dictation should be directly addressed to the provider for clarification Admission and Anticipated Discharge Date Admission Date: April 04, 2023 Subjective Patient seen and examined at bedside. He reports that he is feeling better compared to yesterday. Continues to report fever and chills on and off. Review of Systems Review of Systems: All systems reviewed & are unremarkable except as noted in Subjective Physical Exam Physical Exam: Constitutional: WD/WN, vitals as above, NAD, sitting up in bed, pleasant, conversing easily Respiratory: normal respiratory effort, lungs clear to auscultation, no wheeze, rales, rhonchi. Normal insp/exp effort, no accessory muscle use Cardiovascular: RRR, no murmur, no edema Vessels: no JVD or carotid bruit Chest: normal inspection of chest Abdomen: normal bowel sounds, soft, nontender, no hepatosplenomegaly Musculoskeletal: no cyanosis or clubbing, extremities motor strength 5/5 Skin: no rashes, warm and dry normal turgor Neurologic: PERRL, EOMI, accommodation nl, no face palsy, no dysarthria CN's II- XI intact bilaterally and moves all extremities Psychiatric: A+Ox3, euthymic affect Results & Data Results & Data Vital Signs (Past 12 Hours) Vital Signs Temp Pulse Pulse Resp BP Pulse Ox O2 Del Method 04/05/23 12:55 85 14 97 Room Air 04/05/23 11:21 36.6 C 87 18 126/74 96 Room Air 04/05/23 08:00 77 04/05/23 08:00 Room Air 04/05/23 07:49 36.3 C L 86 18 120/71 96 Room Air 04/05/23 07:16 80 16 98 Room Air FiO2 04/05/23 12:55 21 04/05/23 11:21 04/05/23 08:00 04/05/23 08:00 04/05/23 07:49 04/05/23 07:16 Laboratory Results Laboratory Results WBC 2.31 K/ul (4.8-10.8) L 04/05/23 05:34 RBC 3.06 M/uL (4.70-6.10) L 04/05/23 05:34 Hgb 9.8 g/dl (14.0-18.0) L 04/05/23 05:34 Hct 30.5 % (42.0-52.0) L 04/05/23 05:34 MCV 99.7 fL (80.0-100.0) 04/05/23 05:34 MCH 32.0 pg (25.0-34.0) 04/05/23 05:34 MCHC 32.1 g/dL (32.0-36.0) 04/05/23 05:34 RDW Std Deviation 55.2 fL (36.4-46.3) H 04/05/23 05:34 RDW Coeff of Ophelia 15.6 % (11.5-14.5) H 04/05/23 05:34 Plt Count 106 K/uL (130-400) L 04/05/23 05:34 MPV 11.9 fL (9.4-12.4) 04/05/23 05:34 Immature Gran % (Auto) 2.7 % 04/04/23 13:18 Neut % (Auto) 83.7 % 04/04/23 13:18 Lymph % (Auto) 7.2 % 04/04/23 13:18 [place] % (Auto) 6.0 % 04/04/23 13:18 Eos % (Auto) 0.2 % 04/04/23 13:18 Baso % (Auto) 0.2 % 04/04/23 13:18 Neut # (Auto) 3.35 K/uL (1.40-6.50) 04/04/23 13:18 Lymph # (Auto) 0.29 K/uL (1.20-3.40) L 04/04/23 13:18 [place] # (Auto) 0.24 K/uL (0.11-0.59) 04/04/23 13:18 Eos # (Auto) 0.01 K/uL (0.00-0.50) 04/04/23 13:18 Baso # (Auto) 0.01 K/uL (0.00-0.20) 04/04/23 13:18 Immature Gran # (Auto) 0.11 K/uL (0.01-0.20) 04/04/23 13:18 PT 12.2 Seconds (9.0-12.0) H 04/05/23 05:34 INR 1.1 (0.9-1.1) 04/05/23 05:34 Sodium 138 mmol/L (136-145) 04/05/23 05:34 Potassium 4.6 mmol/L (3.5-5.1) D 04/05/23 05:34 Chloride 110 mmol/L (98-107) H 04/05/23 05:34 Carbon Dioxide 23 mmol/L (21-32) 04/05/23 05:34 Anion Gap 5 (3-11) 04/05/23 05:34 BUN 12 mg/dl (6-23) 04/05/23 05:34 Creatinine 0.62 mg/dl (0.6-1.4) 04/05/23 05:34 Est Cr Clr Drug Dosing 167.6 ml/min 04/05/23 05:34 Est GFR ( Amer) 124.1 ml/min 04/05/23 05:34 Est GFR (Non-Af Amer) 107.1 ml/min 04/05/23 05:34 BUN/Creatinine Ratio 19.4 (10-20) 04/05/23 05:34 Glucose 274 mg/dl (70-99(Fasting)) H 04/05/23 05:34 POC Glucose 164 mg/dl (70-99) H 04/05/23 15:02 Lactate 1.3 mmol/L (0.4-2.0) 04/04/23 13:18 Calcium 8.2 mg/dl (8.6-10.3) L 04/05/23 05:34 Phosphorus 2.8 mg/dl (2.5-4.9) 04/04/23 13:18 Magnesium 1.6 mg/dl (1.7-2.4) L 04/04/23 22:43 Total Bilirubin 0.5 mg/dl (0.2-1.0) 04/05/23 05:34 AST 42 U/L (13-39) H 04/05/23 05:34 ALT 33 U/L (7-52) 04/05/23 05:34 Alkaline Phosphatase 74 U/L (34-104) 04/05/23 05:34 Troponin I High Sens 15.5 pg/ml (0-20) 04/04/23 13:18 Total Protein 5.6 gm/dl (6.0-8.3) L 04/05/23 05:34 Albumin 3.3 gm/dl (3.4-5.0) L 04/05/23 05:34 Globulin 2.3 gm/dl (2.5-4.0) L 04/05/23 05:34 Albumin/Globulin Ratio 1.4 (0.9-2) 04/05/23 05:34 Procalcitonin 0.37 ng/ml (0-0.5) 04/04/23 13:18 Urine Color Yellow 04/04/23 15:30 Urine Appearance Clear (Clear) 04/04/23 15:30 Urine pH 6.0 (4.5-7.5) 04/04/23 15:30 Ur Specific [place] 1.015 (1.000-1.030) 04/04/23 15:30 Urine Protein Negative (Negative) 04/04/23 15:30 Urine Glucose (UA) Negative (Negative) 04/04/23 15:30 Urine Ketones Negative (Negative) 04/04/23 15:30 Urine Blood Negative (Negative) 04/04/23 15:30 Urine Nitrite Negative (Negative) 04/04/23 15:30 Urine Bilirubin Negative (Negative) 04/04/23 15:30 Urine Urobilinogen Negative (Negative) 04/04/23 15:30 Ur Leukocyte Esterase Negative (Negative) 04/04/23 15:30 Adenovirus (PCR) Not Detected (NotDetected) 04/04/23 14:25 B. pertussis DNA (PCR) Not Detected (NotDetected) 04/04/23 14:25 B.parapertussis DNA PCR Not Detected (NotDetected) 04/04/23 14:25 C. pneumoniae DNA (PCR) Not Detected (NotDetected) 04/04/23 14:25 Coronavirus OC43 (PCR) Not Detected (NotDetected) 04/04/23 14:25 Coronavirus HKU1 (PCR) Not Detected (NotDetected) 04/04/23 14:25 Coronavirus 229E (PCR) Not Detected (NotDetected) 04/04/23 14:25 SARS-CoV-2 (PCR) Not Detected (NotDetected) 04/04/23 14:25 Coronavirus NL63 (PCR) Not Detected (NotDetected) 04/04/23 14:25 Human Metapneumovir PCR Not Detected (NotDetected) 04/04/23 14:25 Influenza Type A (PCR) Not Detected (NotDetected) 04/04/23 14:25 Influenza Type B (PCR) Not Detected (NotDetected) 04/04/23 14:25 M. pneumoniae (PCR) Not Detected (NotDetected) 04/04/23 14:25 Parainfluenza 1 (PCR) Not Detected (NotDetected) 04/04/23 14:25 Parainfluenza 2 (PCR) Not Detected (NotDetected) 04/04/23 14:25 Parainfluenza 3 (PCR) Not Detected (NotDetected) 04/04/23 14:25 Parainfluenza 4 (PCR) Not Detected (NotDetected) 04/04/23 14:25 RSV (PCR) Not Detected (NotDetected) 04/04/23 14:25 Entero/Rhino (PCR) Not Detected (NotDetected) 04/04/23 14:25 Impressions Chest X-Ray 04/04/23 12:35 XR chest 1V portable HISTORY: cough, fever COMPARISON: None. FINDINGS: No pneumothorax or no pleural effusions. The cardiac silhouette is normal in size. The right jugular Port-A-Cath terminates in the SVC. Small patchy density within the right medial lung base. This may represent a developing pneumonia. Otherwise, lungs are clear. No evidence for pulmonary edema. IMPRESSION: Small patchy density within the right medial lung base. This likely represents a developing pneumonia. ACT 112: Negative or not required by law. Electronically signed by: Benson Sweeney M.D. 04/04/2023 2:11 PM
--- NOTE | 2023-04-05 16:13 | Electrocardiogram Report ---
Test Reason : Blood Pressure : / mmHG Vent. Rate : 139 BPM Atrial Rate : 139 BPM P-R Int : 130 ms QRS Dur : 088 ms QT Int : 302 ms P-R-T Axes : 047 073 043 degrees QTc Int : 459 ms Sinus tachycardia Nonspecific ST abnormality Abnormal ECG No previous ECGs available Confirmed by Meliton Lomeli ([id number]) on 04/05/2023 4:12:40 PM Referred By: REFERRED SELF Confirmed By:Meliton Lomeli
[2023-04-05] MEDS: INSULIN ASPART PER UNIT CHARGE SC SCH ×2 (17:52→20:38)
[2023-04-05] MEDS: CEFEPIME 2,000 MG in SYRINGE 0 ML IV SCH (17:52)
[2023-04-06] MEDS: LEVALBUTEROL 1.25 MG/3 ML NEB NEB SCH ×4 (01:00→19:43)
[2023-04-06] MEDS: IPRATROPIUM BROMIDE NEB SOLN 0.02% 2.5 ML VIAL INH SCH ×4 (01:00→19:43)
[2023-04-06] MEDS: CEFEPIME 2,000 MG in SYRINGE 0 ML IV SCH ×3 (02:19→17:00)
[2023-04-06] MEDS: DOXYCYCLINE HYCLATE 100 MG in DEXTROSE 5% MINI-B 100 ML IV SCH ×2 (04:17→17:17)
[2023-04-06] MEDS: PANTOprazole 40 MG TAB PO SCH (06:22)
[2023-04-06 06:23] LABS: Eosinophils # (auto) 0.03 K/uL (0.00-0.50); Eosinophils % (auto) 0.9 %; Hematocrit (blood only) 27.6 % (42.0-52.0); Hemoglobin 9.3 g/dl (14.0-18.0); Immature Granulocytes # (auto) 0.04 K/uL (0.01-0.20); Immature Granulocytes % (auto) 1.2 %; Lymphocytes # (auto) 0.67 K/uL (1.20-3.40); Lymphocytes % (auto) 20.3 %; Mean Corpuscular Hemoglobin 32.7 pg (25.0-34.0); Mean Corpuscular Hgb Conc 33.7 g/dL (32.0-36.0); Mean Corpuscular Volume 97.2 fL (80.0-100.0); Mean Platelet Volume 12.7 fL (9.4-12.4); Monocytes % (auto) 9.1 %; Neutrophils # (auto) 2.26 K/uL (1.40-6.50); Neutrophils % (auto) 68.5 %; Platelet Count 126 K/uL (130-400); RDW Coefficient of Variation 15.7 % (11.5-14.5); RDW Standard Deviation 54.6 fL (36.4-46.3); Red Blood Count 2.84 M/uL (4.70-6.10)
[2023-04-06 06:46] LABS: BUN Creatinine Ratio 25.9 (10-20); Calcium 8.4 mg/dl (8.6-10.3); Creatinine Clr Calc Pharmacy 176.6 ml/min; Est GFR (African American) 127.5 ml/min; Potassium 3.4 mmol/L (3.5-5.1)
--- NOTE | 2023-04-06 07:23 | XRay Report ---
XR chest 1V portable HISTORY: 63 years-old Male pna acute shortness of breath COMPARISON: 04/04/2023 TECHNIQUE: AP view of the chest FINDINGS: Cardiomediastinal and hilar silhouettes are within normal limits. Right IJ central venous catheter is noted with distal tip projected over the expected location of the superior cavoatrial junction. No p neumothorax, pleural effusion or airspace consolidation. Bones appear grossly intact. IMPRESSION: No acute process of the chest. The previously questioned right basilar developing pneumon ia is not definitively seen. If there is further clinical concern, PA and lateral views of the chest may be considered. ACT 112: Negative or not required by law. The above report was generated using voice recognition software. It may contain grammatical, syntax o r spelling errors. Electronically signed by: Jose M Nichols M.D. 04/06/2023 7:22 AM
[2023-04-06] MEDS: ASPIRIN 81 MG ECTAB PO SCH (08:41)
[2023-04-06] MEDS: INSULIN ASPART PER UNIT CHARGE SC SCH ×4 (08:41→20:17)
[2023-04-06] MEDS: lisinopril 10 MG TAB PO SCH (08:41)
[2023-04-06] MEDS: HYDROcodone/HOMATROPINE SYRUP 5MG/1.5MG 5ML UDP PO PRN ×2 (08:41→14:23)
[2023-04-06] MEDS: FINASTERIDE 5 MG TAB PO SCH (08:42)
[2023-04-06] MEDS: TAMSULOSIN HCL 0.4 MG CAP PO SCH (08:42)
[2023-04-06] MEDS: DOXYCYCLINE HYCLATE 100 MG CAP PO SCH ×2 (08:42→20:16)
[2023-04-06] MEDS: dilTIAZem HCL 120 MG CAPCR PO SCH (08:42)
[2023-04-06] MEDS: guaiFENesin 600 MG TABCR PO SCH ×2 (08:42→20:16)
[2023-04-06] MEDS: ENOXAPARIN INJ 40 MG/0.4 ML SYR SQ SCH (08:42)
[2023-04-06] MEDS: allopurinoL 300 MG TAB PO SCH (08:42)
[2023-04-06] MEDS: PANCREAZE (LIPASE 10,500U) CAP PO SCH ×4 (09:16→20:17)
[2023-04-06] MEDS ORDERED: LOPERAMIDE HCL 2 MG CAP PO PRN (10:17)
[2023-04-06] MEDS ORDERED: POTASSIUM CHLORIDE CRTAB 20 MEQ TABCR PO STA (10:52)
--- NOTE | 2023-04-06 10:56 | Hospitalist Progress Note ---
Date of Service April 06, 2023 Assessment & Plan (1) Pneumonia: (2) Cough: (3) 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: (4) BPH (benign prostatic hyperplasia): (5) Gout: (6) GERD (gastroesophageal reflux disease): Plan Mr. Holm is a 63 year old male that presents to the ED with complaints of a dry non-productive cough over the past three weeks; that he correlates around the same time he received his influenza vaccine. Patient has pancreatic cancer, follows with Dr. Torrez, current treatment includes modified FOLFIRINOX Q 14 days. He went to have his chemotherapy and they would not administer his chemo due to having a fever. C XR: Small patchy density within the right medial lung base. This likely represents a developing pneumonia. He is at high risk for febrile neutropenia, he will receive prophylactic Pegfilgrastim to prevent the febrile neutropenia. Pneumonia: Patient presents with fever and cough. CXR on admission personally reviewed small patchy density within the right medial lung base. This likely represents a developing pneumonia. Lactate 1.3 biofire negative Blood culture no growth in 24 hours Follow-up chest x-ray reviewed personally; slight improvement in the opacity. Continue DuoNebs, flutter valve for airway clearance Continue on cefepime and doxycycline for pneumonia. Hypokalemia: Repleted Metastatic pancreatic adenocarcinoma with liver mets: Pancytopenia secondary to chemotherapy -diagnosed with pancreatic cancer on 10/03/22; follows with Dr. Torrez -initially evaluated at [facility] and had a CT scan of his abdomen on 08/08/22 revealing an ill-defined hypodense lesion involving the pancreatic tail measuring 2.8 x 2.3 x 2.5 cm -He is at high risk for febrile neutropenia, he will receive prophylactic Pegfilgrastim to prevent the febrile neutropenia. -most recent PET scan: 01/31/23: 1. Slight decrease in activity of the pancreatic mass, though there appears to be increased involvement of the adjacent stomach. 2. Decreased but persistent activity associated with hepatic metastases. 3. No new hypermetabolic lesions. takes prochlorperazine maleate PRN;continue takes Creon; continue HTN: chronic stable takes Lisinopril and Cardizem; continue BPH: chronic stable takes finasteride and silodosin ;continue Gout: chronic stable takes Allopurinol;continue GERD: chronic stable takes omeprazole;continue Disposition: PCP: Dr. Solomon Code Status: Full Code VTE Prophylaxis: Lovenox Time spent evaluating patient, direct bedside care, chart review, placing orders, interpretation of diagnostic studies, discussion with consultants, patient, and family members, as well as other required patient management activities is 60 minutes. Please note the above document was generated using voice recognition software. It may contain grammatical, syntax or spelling errors. Any formal questions or concerns about the content, text or information contained within the body of this dictation should be directly addressed to the provider for clarification Admission and Anticipated Discharge Date Admission Date: April 04, 2023 Subjective Patient seen and examined at bedside. He is sitting up on the bed; not in distress. Reports he still feels congested; reports of mucus production. Review of Systems Review of Systems: All systems reviewed & are unremarkable except as noted in Subjective Physical Exam Physical Exam: Constitutional: WD/WN, vitals as above, NAD, sitting up in bed, pleasant, co nversing easily Respiratory: Occasional crackles heard in right lung base. Cardiovascular: RRR, no murmur, no edema Vessels: no JVD or carotid bruit Chest: normal inspection of chest Abdomen: normal bowel sounds, soft, nontender, no hepatosplenomegaly Musculoskeletal: no cyanosis or clubbing, extremities motor strength 5/5 Skin: no rashes, warm and dry normal turgor Neurologic: PERRL, EOMI, accommodation nl, no face palsy, no dysarthria CN's II- XI intact bilaterally and moves all extremities Psychiatric: A+Ox3, euthymic affect Results & Data Results & Data Vital Signs (Past 12 Hours) Vital Signs Temp Pulse Pulse Resp BP Pulse Ox O2 Del Method 04/06/23 08:40 36.8 C 106 H 19 149/81 H 95 Room Air 04/06/23 07:12 85 18 96 Room Air 04/06/23 03:44 36.5 C 83 18 148/89 H 94 Room Air 04/06/23 00:41 89 04/05/23 23:06 36.6 C 77 18 132/81 95 Room Air Laboratory Results Laboratory Results WBC 3.30 K/ul (4.8-10.8) L 04/06/23 05:33 RBC 2.84 M/uL (4.70-6.10) L 04/06/23 05:33 Hgb 9.3 g/dl (14.0-18.0) L 04/06/23 05:33 Hct 27.6 % (42.0-52.0) L 04/06/23 05:33 MCV 97.2 fL (80.0-100.0) 04/06/23 05:33 MCH 32.7 pg (25.0-34.0) 04/06/23 05:33 MCHC 33.7 g/dL (32.0-36.0) 04/06/23 05:33 RDW Std Deviation 54.6 fL (36.4-46.3) H 04/06/23 05:33 RDW Coeff of Ophelia 15.7 % (11.5-14.5) H 04/06/23 05:33 Plt Count 126 K/uL (130-400) L 04/06/23 05:33 MPV 12.7 fL (9.4-12.4) H 04/06/23 05:33 Immature Gran % (Auto) 1.2 % 04/06/23 05:33 Neut % (Auto) 68.5 % 04/06/23 05:33 Lymph % (Auto) 20.3 % 04/06/23 05:33 Blair % (Auto) 9.1 % 04/06/23 05:33 Eos % (Auto) 0.9 % 04/06/23 05:33 Baso % (Auto) 0.0 % 04/06/23 05:33 Neut # (Auto) 2.26 K/uL (1.40-6.50) 04/06/23 05:33 Lymph # (Auto) 0.67 K/uL (1.20-3.40) L 04/06/23 05:33 Blair # (Auto) 0.30 K/uL (0.11-0.59) 04/06/23 05:33 Eos # (Auto) 0.03 K/uL (0.00-0.50) 04/06/23 05:33 Baso # (Auto) 0.00 K/uL (0.00-0.20) 04/06/23 05:33 Immature Gran # (Auto) 0.04 K/uL (0.01-0.20) 04/06/23 05:33 PT 12.2 Seconds (9.0-12.0) H 04/05/23 05:34 INR 1.1 (0.9-1.1) 04/05/23 05:34 Sodium 139 mmol/L (136-145) 04/06/23 05:33 Potassium 3.4 mmol/L (3.5-5.1) L D 04/06/23 05:33 Chloride 111 mmol/L (98-107) H 04/06/23 05:33 Carbon Dioxide 22 mmol/L (21-32) 04/06/23 05:33 Anion Gap 6 (3-11) 04/06/23 05:33 BUN 15 mg/dl (6-23) 04/06/23 05:33 Creatinine 0.58 mg/dl (0.6-1.4) L 04/06/23 05:33 Est Cr Clr Drug Dosing 176.6 ml/min 04/06/23 05:33 Est GFR ( Amer) 127.5 ml/min 04/06/23 05:33 Est GFR (Non-Af Amer) 110.0 ml/min 04/06/23 05:33 BUN/Creatinine Ratio 25.9 (10-20) H 04/06/23 05:33 Glucose 133 mg/dl (70-99(Fasting)) H 04/06/23 05:33 POC Glucose 121 mg/dl (70-99) H 04/06/23 07:23 Lactate 1.3 mmol/L (0.4-2.0) 04/04/23 13:18 Calcium 8.4 mg/dl (8.6-10.3) L 04/06/23 05:33 Phosphorus 2.8 mg/dl (2.5-4.9) 04/04/23 13:18 Magnesium 1.6 mg/dl (1.7-2.4) L 04/04/23 22:43 Total Bilirubin 0.5 mg/dl (0.2-1.0) 04/05/23 05:34 AST 42 U/L (13-39) H 04/05/23 05:34 ALT 33 U/L (7-52) 04/05/23 05:34 Alkaline Phosphatase 74 U/L (34-104) 04/05/23 05:34 Troponin I High Sens 15.5 pg/ml (0-20) 04/04/23 13:18 Total Protein 5.6 gm/dl (6.0-8.3) L 04/05/23 05:34 Albumin 3.3 gm/dl (3.4-5.0) L 04/05/23 05:34 Globulin 2.3 gm/dl (2.5-4.0) L 04/05/23 05:34 Albumin/Globulin Ratio 1.4 (0.9-2) 04/05/23 05:34 Procalcitonin 0.37 ng/ml (0-0.5) 04/04/23 13:18 Urine Color Yellow 04/04/23 15:30 Urine Appearance Clear (Clear) 04/04/23 15:30 Urine pH 6.0 (4.5-7.5) 04/04/23 15:30 Ur Specific [place] 1.015 (1.000-1.030) 04/04/23 15:30 Urine Protein Negative (Negative) 04/04/23 15:30 Urine Glucose (UA) Negative (Negative) 04/04/23 15:30 Urine Ketones Negative (Negative) 04/04/23 15:30 Urine Blood Negative (Negative) 04/04/23 15:30 Urine Nitrite Negative (Negative) 04/04/23 15:30 Urine Bilirubin Negative (Negative) 04/04/23 15:30 Urine Urobilinogen Negative (Negative) 04/04/23 15:30 Ur Leukocyte Esterase Negative (Negative) 04/04/23 15:30 Adenovirus (PCR) Not Detected (NotDetected) 04/04/23 14:25 B. pertussis DNA (PCR) Not Detected (NotDetected) 04/04/23 14:25 B.parapertussis DNA PCR Not Detected (NotDetected) 04/04/23 14:25 C. pneumoniae DNA (PCR) Not Detected (NotDetected) 04/04/23 14:25 Coronavirus OC43 (PCR) Not Detected (NotDetected) 04/04/23 14:25 Coronavirus HKU1 (PCR) Not Detected (NotDetected) 04/04/23 14:25 Coronavirus 229E (PCR) Not Detected (NotDetected) 04/04/23 14:25 SARS-CoV-2 (PCR) Not Detected (NotDetected) 04/04/23 14:25 Coronavirus NL63 (PCR) Not Detected (NotDetected) 04/04/23 14:25 Human Metapneumovir PCR Not Detected (NotDetected) 04/04/23 14:25 Influenza Type A (PCR) Not Detected (NotDetected) 04/04/23 14:25 Influenza Type B (PCR) Not Detected (NotDetected) 04/04/23 14:25 M. pneumoniae (PCR) Not Detected (NotDetected) 04/04/23 14:25 Parainfluenza 1 (PCR) Not Detected (NotDetected) 04/04/23 14:25 Parainfluenza 2 (PCR) Not Detected (NotDetected) 04/04/23 14:25 Parainfluenza 3 (PCR) Not Detected (NotDetected) 04/04/23 14:25 Parainfluenza 4 (PCR) Not Detected (NotDetected) 04/04/23 14:25 RSV (PCR) Not Detected (NotDetected) 04/04/23 14:25 Entero/Rhino (PCR) Not Detected (NotDetected) 04/04/23 14:25 Impressions Chest X-Ray 04/06/23 05:00 XR chest 1V portable HISTORY: 63 years-old Male pna acute shortness of breath COMPARISON: 04/04/2023 TECHNIQUE: AP view of the chest FINDINGS: Cardiomediastinal and hilar silhouettes are within normal limits. Right IJ central venous catheter is noted with distal tip projected over the expected location of the superior cavoatrial junction. No pneumothorax, pleural effusion or airspace consolidation. Bones appear grossly intact. IMPRESSION: No acute process of the chest. The previously questioned right basilar developing pneumonia is not definitively seen. If there is further clinical concern, PA and lateral views of the chest may be considered. ACT 112: Negative or not required by law. The above report was generated using voice recognition software. It may contain grammatical, syntax or spelling errors. Electronically signed by: Jose M Nichols M.D. 04/06/2023 7:22 AM
[2023-04-07] MEDS: CEFEPIME 2,000 MG in SYRINGE 0 ML IV SCH ×2 (02:16→10:18)
[2023-04-07] MEDS: IPRATROPIUM BROMIDE NEB SOLN 0.02% 2.5 ML VIAL INH SCH ×2 (03:44→07:25)
[2023-04-07] MEDS: LEVALBUTEROL 1.25 MG/3 ML NEB NEB SCH ×2 (03:44→07:25)
[2023-04-07] MEDS: DOXYCYCLINE HYCLATE 100 MG in DEXTROSE 5% MINI-B 100 ML IV SCH (04:08)
[2023-04-07] MEDS: PANTOprazole 40 MG TAB PO SCH (06:00)
[2023-04-07 06:47] LABS: Basophils # (auto) 0.01 K/uL (0.00-0.20); Basophils % (auto) 0.3 %; Eosinophils # (auto) 0.05 K/uL (0.00-0.50); Eosinophils % (auto) 1.6 %; Hematocrit (blood only) 30.4 % (42.0-52.0); Hemoglobin 9.9 g/dl (14.0-18.0); Immature Granulocytes # (auto) 0.05 K/uL (0.01-0.20); Immature Granulocytes % (auto) 1.6 %; Lymphocytes # (auto) 0.86 K/uL (1.20-3.40); Mean Corpuscular Hemoglobin 32.4 pg (25.0-34.0); Mean Corpuscular Hgb Conc 32.6 g/dL (32.0-36.0); Mean Corpuscular Volume 99.3 fL (80.0-100.0); Mean Platelet Volume 11.5 fL (9.4-12.4); Monocytes # (auto) 0.36 K/uL (0.11-0.59); Monocytes % (auto) 11.3 %; Neutrophils # (auto) 1.85 K/uL (1.40-6.50); Neutrophils % (auto) 58.2 %; Platelet Count 151 K/uL (130-400); RDW Coefficient of Variation 15.9 % (11.5-14.5); RDW Standard Deviation 56.6 fL (36.4-46.3); Red Blood Count 3.06 M/uL (4.70-6.10); White Blood Count 3.18 K/ul (4.8-10.8)
[2023-04-07 07:10] LABS: BUN Creatinine Ratio 22.2 (10-20); Calcium 9.1 mg/dl (8.6-10.3); Creatinine Clr Calc Pharmacy 147.2 ml/min; Est GFR (African American) 123.3 ml/min; Est GFR (Non-African American) 106.4 ml/min
[2023-04-07] MEDS: INSULIN ASPART PER UNIT CHARGE SC SCH (08:24)
[2023-04-07] MEDS: allopurinoL 300 MG TAB PO SCH (08:24)
[2023-04-07] MEDS: ASPIRIN 81 MG ECTAB PO SCH (08:24)
[2023-04-07] MEDS: lisinopril 10 MG TAB PO SCH (08:24)
[2023-04-07] MEDS: TAMSULOSIN HCL 0.4 MG CAP PO SCH (08:24)
[2023-04-07] MEDS: dilTIAZem HCL 120 MG CAPCR PO SCH (08:25)
[2023-04-07] MEDS: DOXYCYCLINE HYCLATE 100 MG CAP PO SCH (08:25)
[2023-04-07] MEDS: FINASTERIDE 5 MG TAB PO SCH (08:25)
[2023-04-07] MEDS: guaiFENesin 600 MG TABCR PO SCH (08:25)
[2023-04-07] MEDS: ENOXAPARIN INJ 40 MG/0.4 ML SYR SQ SCH (08:25)
[2023-04-07] MEDS: PANCREAZE (LIPASE 10,500U) CAP PO SCH (08:25)
[2023-04-07] MEDS: HYDROcodone/HOMATROPINE SYRUP 5MG/1.5MG 5ML UDP PO PRN (08:27)
--- NOTE | 2023-04-07 12:59 | Discharge Summary ---
Date of Service April 07, 2023 Admission HPI Per Admitting Provider Mr. Holm is a 63 year old male that presents to the ED with complaints of a dry non-productive cough over the past three weeks with wheezes; that he correlates around the same time he received his influenza vaccine. He stated that he woke up this AM shivering, but is unsure if he had a fever. Patient has pancreatic cancer, follows with Dr. Torrez, current treatment includes modified FOLFIRINOX Q 14 days. He went to have his chemotherapy and they would not administer his chemo due to having a fever. He notices he bruises easily; was scratched by his cat most recently over the past few days. Erythema noted at site. Pt was diagnosed with pancreatic cancer on 10/03/22. He was initially having upper abdominal pain with abnormal LFT's and elevated lipase level. 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 Will hold phlebotomy for now. ( Ferritin level was around 80 ( 09/14/2022). Most recent imaging includes an MRI MRCP 08/09/22 at [facility]; no focal liver abnormality notes. Splenomegaly; spleen was measuring 17.5 cm. He had an upper GI endoscopic EUS and biopsy from the pancreatic tail mass indicated adenocarcinoma Jul 2022. Chest CT in 11/15 negative for metastatic disease. He was evaluated by Dr. Howard and underwent diagnostic laparoscopy and had a liver wedge resection on 10/26/22; biopsy from that indicated metastatic adenocarcinoma. On 11/22/22 he had a PET scan: 1. 4.7 x 2.7 cm metabolically-active mass involving the distal pancreatic body and tail, consistent with biopsy-proven malignancy. 2. Multiple metabolically-active liver metastases. 3. Metabolically-active wall thickening of the cecum at the ileocecal valve, concerning for colonic malignancy. Further evaluation can be obtained with colonoscopy and biopsy. 4. Small left upper abdominal omental infarct status post recent surgery. repeat PET on 01/31/23: 1. Slight decrease in activity of the pancreatic mass, though there appears to be increased involvement of the adjacent stomach. 2. Decreased but persistent activity associated with hepatic metastases. 3. No new hypermetabolic lesions. CXR: Small patchy density within the right medial lung base. This likely represents a developing pneumonia. He is at high risk for febrile neutropenia, he will receive prophylactic Pegfilgrastim to prevent the febrile neutropenia. Patient denies HALL, dizziness, visual or auditory changes, urine or bowel changes, recent falls or trauma. Will treat patient for pneumonia and notify heme onc of patients admission. Will replace K+ and obtain CXR in 48 hours; will adjust abx based on culture results. Patient will be admitted for further evaluation and management. Please see A/P for further details. Admission Exam Per Admitting Provider Neuro: AAOx4, PERRLA, no aphagia, memory changes, CNII-XII grossly intact HEENT: head normocephalic, moist mucus membranes CV: S1/S2, (-) M/G/R, (-) edema, cap refill < 3 seconds Resp: Lungs expiratory an inspiratory wheezes. On RA GI: Abdomen S/NT/ND, Ax4 bowel sounds, (-) CVA tenderness Musculoskeletal: 5/5 B/L UE strength, 5/5 B/L LE strength. No gait disturbance Skin: (-) rashes , (-) erythema. Psych: euthymic mood Principal Diagnosis Pneumonia Discharge Exam Constitutional: WD/WN, vitals as above, NAD, sitting up in bed, pleasant, conversing easily Respiratory: Occasional crackles heard in right lung base. Cardiovascular: RRR, no murmur, no edema Vessels: no JVD or carotid bruit Chest: normal inspection of chest Abdomen: normal bowel sounds, soft, nontender, no hepatosplenomegaly Musculoskeletal: no cyanosis or clubbing, extremities motor strength 5/5 Skin: no rashes, warm and dry normal turgor Neurologic: PERRL, EOMI, accommodation nl, no face palsy, no dysarthria CN's II- XI intact bilaterally and moves all extremities Psychiatric: A+Ox3, euthymic affect Discharge Data Allergies Allergy/AdvReac Type Severity Reaction Status Date / Time No Known Allergies Allergy Verified 08/10/22 14:55 Consultations 04/04/23 15:55 ED Decision to Admit Stat Hospital Course (1) Pneumonia: (2) Cough: (3) 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: (4) BPH (benign prostatic hyperplasia): (5) Gout: (6) GERD (gastroesophageal reflux disease): Plan Mr. Holm is a 63 year old male that presents to the ED with comp laints of a dry non-productive cough over the past three weeks; that he correlates around the same time he received his influenza vaccine. Patient has pancreatic cancer, follows with Dr. Torrez, current treatment includes modified FOLFIRINOX Q 14 days. He went to have his chemotherapy and they would not administer his chemo due to having a fever. CXR: Small patchy density within the right medial lung base. This likely represents a developing pneumonia. He is at high risk for febrile neutropenia, he will receive prophylactic Pegfilgrastim to prevent the febrile neutropenia. Pneumonia: Patient presented with fever and cough. Tmax of 39.9 C on admission. CXR on admission mall patchy density within the right medial lung base. Lactate 1.3 biofire negative Blood culture no growth in 48 hours Follow-up chest x-ray r; slight improvement in the opacity. During the hospitalization, patient was treated with IV antibiotics with cefepime and doxycycline. He was also started on airway clearance therapy with DuoNebs, hypertonic saline and flutter valve Patient remained in room air throughout the hospitalization. He was afebrile for last 48 hours before discharge. Patient discharged home on cefdinir and doxycycline for 5 more days to complete the antibiotic course. Patient to follow-up with PCP after discharge. Please note the above document was generated using voice recognition software. It may contain grammatical, syntax or spelling errors. Any formal questions or concerns about the content, text or information contained within the body of this dictation should be directly addressed to the provider for clarification Total Time Total Time Spent Total Time Spent (In Minutes): 45 Discharge Plan Discharge Items Patient Disposition: Home - Self-Care Reason For Visit: PNEUMONIA; LIVER AND PANCREATIC CANCER Discharge Diagnosis: Pneumonia Activity: Resume your previous activity Non-emergency contact: Primary Care Provider Call non-emergency contact if: you have any medication questions and your symptoms worsen Follow-up/Referrals: Ray Royal MD [Primary Care Provider] - (Date & Time 04/13/2023 11:20 AM Provider Ray Royal MD Department [facility] ) Diet: Regular Addtl Attending Provider Instructions: You Were admitted to the hospital due to pneumonia. You are prescribed foll owing antibiotic to complete the treatment course 1) cefdinir 300 mg twice a day 2) doxycycline 100 mg twice a day You are also prescribed cough syrup as needed for cough. Pending Studies at Discharge: No Stand-Alone Forms: My [facility], Smoking Cessation Medications and DC Order Prescriptions: New doxycycline hyclate 100 mg Capsule 100 mg PO BID Qty: 10 0RF Robitussin Cough-Chest Abisai DM 10-200 mg capsule 1 tab-cap PO Q8H PRN (Reason: cough) Qty: 30 0RF cefdinir 300 mg capsule 300 mg PO BID 5 Days Qty: 10 0RF Continued allopurinol 300 mg tablet 300 mg PO QAM lisinopril 10 mg tablet 10 mg PO DAILY diclofenac sodium 50 mg tablet,delayed release (DR/EC) 50 mg PO TID PRN (Reason: Pain) Rx Instructions: take with food diltiazem HCl 120 mg capsule,extended release 24 hr 120 mg PO DAILY omeprazole 20 mg capsule,delayed release(DR/EC) 20 mg PO DAILYBB finasteride 5 mg tablet 5 mg PO QAM aspirin 81 mg Tablet,Delayed Release (Dr/Ec) 81 mg PO QAM potassium chloride 10 mEq tablet extended release 10 meq PO AMHS magnesium oxide 400 mg magnesium Tablet 400 mg PO QAM Fluorouracil 5-Fu 6,100mg 1 dose IV .ONCE Rx Instructions: start 04/04/23 end 04/05/23 loperamide 2 mg capsule 2 mg PO UD PRN (Reason: Diarrhea) Rx Instructions: take 2 tablets after 1st episode of diarrhea and 1 tablet after each subsequent episode. silodosin 8 mg capsule 8 mg PO QAM Creon 12,000-38,000 -60,000 unit capsule,delayed release(DR/EC) 1 cap PO QID ondansetron HCl 8 mg tablet 8 mg PO Q8 PRN (Reason: Nausea) prochlorperazine maleate 10 mg tablet 10 mg PO Q6 PRN (Reason: Nausea) lidocaine-prilocaine 2.5-2.5 % Cream 1 applic UD Rx Instructions: apply to skin over mediport & cover 1 hour prior to accessing loratadine [Allergy Relief (loratadine)] 10 mg tablet 5 mg PO UD Rx Instructions: take 1 tablet daily for 5 days starting the day before udenyca Discharge Orders: Discharge Order (Routine); Ordered 04/07/23 Ordered By: Edward Petty Admission Data Admit Date/Time: 04/04/23 16:00 Attending Provider: Edward Petty Admit Provider: Nirali Chan Primary Care Provider: Ray Royal Other Providers: Nirali Chan Other Interventions: Discharge Summary Assessment (RN) Last Done: 04/07/23 10:21
== END 2023-04-07 11:23 | disposition home or self-care (01) | DRG 871 ==
LOC: ED 12:19 → EDINP 16:00 → SUATTDRO 16:00 → 2S 23:12

== ENCOUNTER 2023-09-19 14:57 | Inpatient (IN) ==
--- NOTE | 2023-09-19 16:07 | Emergency Department Note ---
History of Present Illness General Chief complaint: Diarrhea Time Seen by Provider: 09/19/23 15:47 History of Present Illness 63-year-old male presents emergency department from [facility] with a complaint of of nausea and diarrhea and abdominal bloating. Patient is followed by Dr. Torrez as he is an oncology patient which she has liver disease liver cancer and pancreatic cancer. Patient chemo last week. Patient is currently taking lactulose started that last week. Patient denies any change in his mental status or confusion. Patient was sent for further evaluation of dehydration diarrhea and abdominal bloating and distention. There are no other complaints from the patient. Home Medications Medication Instructions Recorded Confirmed Type allopurinol 300 mg tablet 300 mg PO QAM 05/02/22 09/19/23 History diltiazem HCl 120 mg capsule,24 120 mg PO DAILY 05/02/22 09/19/23 History hr,extended release lisinopril 10 mg tablet 10 mg PO DAILY 05/02/22 09/19/23 History finasteride 5 mg tablet 5 mg PO QAM 08/10/22 09/19/23 History omeprazole 20 mg capsule,delayed 20 mg PO DAILYBB 08/10/22 09/19/23 History release magnesium oxide 400 mg PO QAM 04/04/23 09/19/23 History ondansetron HCl 8 mg tablet 8 mg PO Q8 PRN Nausea 04/04/23 09/19/23 History potassium chloride 10 mEq 10 meq PO AMHS 04/04/23 09/19/23 History tablet,extended release silodosin 8 mg capsule 8 mg PO QAM 04/04/23 09/19/23 History baclofen 10 mg tablet 10 mg PO BID 08/18/23 09/19/23 History polyethylene glycol 3350 17 gram 17 g PO DAILY PRN Constipation 08/18/23 09/19/23 History oral powder packet (Miralax) sennosides 8.6 mg tablet (senna) 17.2 mg PO HS 08/18/23 09/19/23 History aspirin 81 mg tablet 81 mg PO QAM 09/19/23 09/19/23 History furosemide 20 mg tablet 20 mg PO QAM 09/19/23 09/19/23 History lactulose 10 gram/15 mL oral 20 g PO QAM 09/19/23 09/19/23 History solution Allergies Allergy/AdvReac Type Severity Reaction Status Date / Time No Known Allergies Allergy Verified 09/19/23 18:36 Past Med/Surg History Medical History GERD (gastroesophageal reflux disease) Gout 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 Social History Smoking Status: Current every day smoker Tobacco Type: Cigarettes Second Hand Exposure: No; Hx Alcohol Use: No Hx Substance Use: No Preferred Language: Urdu Communication Ability: Effective 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 Beliefs That Will Affect Care: Jehovah'S Witness Jehovah'S Witness Beliefs: Moravian marital status: Current Living Situation: Alone Feels Safe at Home: Yes Assistive Devices: None Review of Systems A total of 10 systems reviewed and were otherwise negative Gastrointestinal: + bloating and + diarrhea/loose stools Physical Exam Vital Signs Vital Signs - 24 hr 09/19/23 15:08 09/19/23 15:48 09/19/23 17:07 Temperature 37.5 C 36.7 C Temperature Source Oral Oral Pulse Rate 132 H 117 H Pulse Rate [Apical] 117 H Pulse Rhythm Regular Respiratory Rate 20 18 18 Respiratory Effort / Characteristics Non-Labored Non-Labored Respiratory Depth Normal Normal Blood Pressure 145/79 H Blood Pressure [Right Arm] 134/82 Blood Pressure Mean 101 Blood Pressure Mean [Right Arm] 99 Pulse Oximetry 99 98 99 Oxygen Delivery Method Room Air Room Air Sepsis Recent Fever Within 48 Hours No Sepsis New/Unexplained Change in Mental Status No Sepsis Action Taken by Nursing No Action Required 09/19/23 17:20 Temperature Temperature Source Pulse Rate 117 H Pulse Rate [Apical] Pulse Rhythm Respiratory Rate Respiratory Effort / Characteristics Respiratory Depth Blood Pressure Blood Pressure [Right Arm] Blood Pressure Mean Blood Pressure Mean [Right Arm] Pulse Oximetry Oxygen Delivery Method Sepsis Recent Fever Within 48 Hours Sepsis New/Unexplained Change in Mental Status Sepsis Action Taken by Nursing GENERAL: Patient is awake alert in no acute distress patient is resting comfortably and showing no signs of anxiety EYES: The conjunctivae are clear. The pupils are round and reactive. EARS, NOSE, MOUTH AND THROAT: The nose is without any evidence of any deformity. Mucous membranes are moist. Tongue is midline. NECK: The neck is nontender and supple. RESPIRATORY: Normal respiratory effort is noted there is no evidence of wheezing rhonchi or rales CARDIOVASCULAR: Tachycardic, no murmur GASTROINTESTINAL: The abdomen is soft. Abdomen is nontender; mild distention there is hepatomegaly present, there is no fluid wave present BACK: No midline tenderness or or step-off noted range of motion in flexion extension as well as rotation no signs of muscle spasm noted MUSCULOSKELETAL/EXTREMITIES: There is no evidence of gross deformity full range of motion is noted in the hips and shoulders. Bilateral lower extremity edema SKIN: There is no obvious evidence of any rash. There are no petechiae, pallor or cyanosis noted. NEUROLOGIC: Patient is awake alert and oriented x3 strength is symmetric Course Reevaluation(s) Reevaluation #1: Patient was started on 3 L of IV fluid, the patient was also given empiric Zosyn. Patient remained stable throughout the emergency department evaluation Time: 18:59 Consultations Consultation #1: Case was discussed with the [facility] Hospitalist for admission for sepsis liver failure Time: 19:00 Administered Medications Discontinued Medications Sodium Chloride (Nss) 1,000 mls @ 999 mls/hr IV .Q1H1M ONE Stop: 09/19/23 17:05 Last Admin: 09/19/23 17:10 Dose: 999 mls/hr Documented By: JUAN PABLO Magnesium Sulfate/Dextrose (Magnesium Sulfate / D5w) 1 gm in 100 mls @ 200 mls/hr IV Q30M EMORY Stop: 09/19/23 18:26 Last Admin: 09/19/23 18:25 Dose: 200 mls/hr Documented By: JUAN PABLO Infusion: 09/19/23 18:10 Dose: Infused Documented By: JUAN PABLO Admin: 09/19/23 17:40 Dose: 200 mls/hr Documented By: JUAN PABLO Piperacillin Sod/Tazobactam Sod (Zosyn) 4.5 gm in 100 mls @ 200 mls/hr IV NOW ONE Stop: 09/19/23 18:13 Last Infusion: 09/19/23 18:26 Dose: Infused Documented By: JUAN PABLO Admin: 09/19/23 18:12 Dose: 200 mls/hr Documented By: JUAN PABLO Ioversol (Optiray 320 100ml) 90 ml IV ONCE ONE Stop: 09/19/23 18:03 Last Admin: 09/19/23 18:02 Dose: 90 ml Documented By: TERESA Critical Care Time Critical Care Time: Yes Total Critical Care Time: 40 I have personally spent greater than 40 minutes of critical care time in the direct management of this patient. This includes bedside care, interpretation of diagnostic studies, and testing, discussion with consultants, patient, and family members, and other required patient management activities. These minutes are in excess of all separately billable procedures. Medical Decision Making Medical Records Attestation: I reviewed the patient's medical records. Home Medications Current Medication List: was personally reviewed by me Laboratory Data Attestation: I reviewed the patient's lab results. Labs interpreted by me the patient has a pancytopenia, the patient has an elevated lactic acid, the patient has a transaminitis, the concern with these labs is sepsis 09/19/23 16:30 09/19/23 16:30 Lab Results 09/19/23 09/19/23 09/19/23 Range/Units 16:30 16:54 16:57 WBC 3.60 L (4.8-10.8) K/ul RBC 2.81 L (4.70-6.10) M/uL Hgb 8.8 L (14.0-18.0) g/dl Hct 27.1 L (42.0-52.0) % MCV 96.4 (80.0-100.0) fL MCH 31.3 (25.0-34.0) pg MCHC 32.5 (32.0-36.0) g/dL RDW Std Deviation 72.2 H (36.4-46.3) fL RDW Coeff of Ophelia 20.8 H (11.5-14.5) % Plt Count 50 L (130-400) K/uL Immature Gran % (Auto) 8.3 % Neut % (Auto) 62.8 % Lymph % (Auto) 18.1 % [place] % (Auto) 9.7 % Eos % (Auto) 0.8 % Baso % (Auto) 0.3 % Neut # (Auto) 2.26 (1.40-6.50) K/uL Lymph # (Auto) 0.65 L (1.20-3.40) K/uL Sierra # (Auto) 0.35 (0.11-0.59) K/uL Eos # (Auto) 0.03 (0.00-0.50) K/uL Baso # (Auto) 0.01 (0.00-0.20) K/uL Immature Gran # (Auto) 0.30 H (0.01-0.20) K/uL Absolute Nucleated RBC 0.05 (0.00-0.12) K/uL Nucleated RBC % (auto) 1.4 % Toxic Granulation 1+ Dohle Bodies 1+ Poikilocytosis Present Anisocytosis Present Tear Drop Cells 2+ Ovalocytes 1+ Sodium 136 (136-145) mmol/L Potassium 3.9 (3.5-5.1) mmol/L Chloride 108 H (98-107) mmol/L Carbon Dioxide 21 (21-32) mmol/L Anion Gap 7 (3-11) BUN 24 H (6-23) mg/dl Creatinine 0.73 (0.6-1.4) mg/dl Est Cr Clr Drug Dosing 127.0 ml/min Est GFR ( Amer) 116.0 ml/min Est GFR (Non-Af Amer) 100.1 ml/min BUN/Creatinine Ratio 32.9 H (10-20) Glucose 150 H (70-99(Fasting)) mg/dl Lactate 3.0 H* (0.4-2.0) mmol/L Calcium 7.6 L (8.6-10.3) mg/dl Magnesium 1.6 L (1.7-2.4) mg/dl Total Bilirubin 3.3 H (0.2-1.0) mg/dl Direct Bilirubin 2.2 H (0-0.2) mg/dl AST 66 H (13-39) U/L ALT 29 (7-52) U/L Alkaline Phosphatase 208 H (34-104) U/L Ammonia 29.0 (18-72) umol/L Troponin I High Sens 10.9 (0-20) pg/ml Total Protein 5.0 L (6.0-8.3) gm/dl Albumin 2.6 L (3.4-5.0) gm/dl Lipase 27 (11-82) U/L Procalcitonin 1.41 H (0-0.5) ng/ml Urine Color Dark Yellow Urine Appearance Clear (Clear) Urine pH 5.0 (4.5-7.5) Ur Specific [place] 1.017 (1.000-1.030) Urine Protein Negative (Negative) Urine Glucose (UA) Negative (Negative) Urine Ketones Negative (Negative) Urine Blood Negative (Negative) Urine Nitrite Negative (Negative) Urine Bilirubin 1+ H (Negative) Urine Urobilinogen Positive H (Negative) Ur Leukocyte Esterase Negative (Negative) Imaging Data Attestation: I personally reviewed and interpreted this imaging study as follows: My Impression: Chest x-ray interpreted by me negative for infiltrate Radiologist's Impression: Chest X-Ray 09/19/23 15:48 XR chest 1V portable CLINICAL HISTORY: Sepsis TECHNIQUE: Single frontal radiograph of the chest was obtained. Comparison: Comparison is made to chest radiograph 09/16/2023 FINDINGS: A port catheter is seen. The cardiomediastinal silhouette is normal. Lungs are underinflated but clear. No evidence of pleural effusion or pneumothorax. IMPRESSION: Lungs are underinflated without evidence of pneumonia. ACT 112: Negative or not required by law. Electronically signed by: Marquis Pierson M.D. 09/19/2023 4:40 PM Abdomen/Pelvis CT 09/19/23 17:26 CT abd pelvis IV con only CLINICAL HISTORY: diarrhea TECHNIQUE: Helical axial images of the abdomen and pelvis were obtained and displayed. Automated dose lowering techniques and/or adjustment according to patient size were utilized for this exam. This exam was performed with intravenous contrast. CT DOSE: 1669.45 mGy.cm COMPARISON: Comparison is made to CT abdomen pelvis 07/02/2023 FINDINGS: Lower chest: Bibasilar atelectasis versus scarring is seen. Liver: Numerous hepatic hypodensities are increased in size and number from prior exam. Gallbladder and biliary tree: No calcified gallstones. Normal caliber wall. No intra- or extrahepatic biliary ductal dilation. Pancreas: Pancreatic tail mass is again seen measuring approximately 24 mm in diameter. Spleen: Stable splenomegaly measuring up to 19 mm in length. Adrenals: Unremarkable. Kidneys and ureters: Unremarkable. Bladder: Unremarkable. Reproductive organs: Unremarkable. Bowel: The appendix is normal. Lymph nodes Retroperitoneal: Retroperitoneal lymph nodes measure up to 13 mm in diameter. Pelvic: Unremarkable. Mesenteric: Unremarkable. Peritoneum: Moderate ascites is seen. 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 The portal vein remains patent. Abdominal wall: Right fat-containing inguinal hernia. Fat-containing umbilical hernia is seen. Bones: Degenerative changes in the visualized spine. IMPRESSION: 1. Moderate ascites is new from prior exam. No acute abnormalities to explain diarrhea. 2. Redemonstration of pancreatic mass. Increased size and number of hepatic and keeley metastases. 3. Stable splenomegaly and splenic vein occlusion with collateral formation. ACT 112: Negative or not required by law. Electronically signed by: Marquis Pierson M.D. 09/19/2023 6:19 PM ECG Data Attestation: I personally reviewed and interpreted this ECG as follows: Additional Comments: EKG interpreted by me sinus tachycardia rate of 123, normal intervals normal axis, no obvious ST segment elevation or depression Telemetry was ordered by me interpreted as sinus tachycardia rate of 130 MDM Narrative Medical decision making differential diagnosis includes ascites, dehydration, electrolyte abnormality, metabolic derangement, worsening pancreatic and liver cancer Plan is to check labs, sepsis labs, give IV fluids Patient was found to have elevated lactate pancytopenia, the patient was empirically started on IV antibiotics, the concern is severe sepsis. Patient was hemodynamically stable throughout emergency department evaluation Case was discussed with the [facility] Hospitalist for further admission of ascites, sepsis, diarrhea, dehydration, transaminitis, pancreatic cancer Impression & Plan Sepsis, Ascites, Diarrhea, Transaminitis, Acidosis, lactic Discharge Plan Visit Data Chief Complaint: Diarrhea ED Provider: Scot Haines Discharge Problem: Sepsis, Ascites, Diarrhea, Transaminitis, Acidosis, lactic Patient Disposition: Admitted As Inpatient Forms Stand Alone Forms: [facility] Prescriptions Prescriptions: No Action allopurinol 300 mg tablet 300 mg PO QAM lisinopril 10 mg tablet 10 mg PO DAILY diltiazem HCl 120 mg capsule,extended release 24 hr 120 mg PO DAILY omeprazole 20 mg capsule,delayed release(DR/EC) 20 mg PO DAILYBB finasteride 5 mg tablet 5 mg PO QAM potassium chloride 10 mEq tablet extended release 10 meq PO AMHS Rx Instructions: not filled since 04/04/23 for 30 days magnesium oxide 400 mg magnesium Tablet 400 mg PO QAM silodosin 8 mg capsule 8 mg PO QAM ondansetron HCl 8 mg tablet 8 mg PO Q8 PRN (Reason: Nausea) sennosides [senna] 8.6 mg Tablet 17.2 mg PO HS polyethylene glycol 3350 [Miralax] 17 gram Powder In Packet 17 g PO DAILY PRN (Reason: Constipation) baclofen 10 mg tablet 10 mg PO BID aspirin 81 mg Tablet 81 mg PO QAM furosemide 20 mg tablet 20 mg PO QAM lactulose 10 gram/15 mL solution 20 g PO QAM [facility]Primary [facility] Provider[facility] -
--- NOTE | 2023-09-19 16:41 | XRay Report ---
XR chest 1V portable CLINICAL HISTORY: Sepsis TECHNIQUE: Single frontal radiograph of the chest was obtained. Comparison: Comparison is made to chest radiograph 09/16/2023 FINDINGS: A port catheter is seen. The cardiomediastinal silhouette is normal. Lungs are underinflated but rebecca r. No evidence of pleural effusion or pneumothorax. IMPRESSION: Lungs are underinflated without evidence of pneumonia. ACT 112: Negative or not required by law. Electronically signed by: Marquis Pierson M.D. 09/19/2023 4:40 PM
[2023-09-19] MEDS: SODIUM CHLORIDE 0.9% 1,000 ML IV ONE ×2 (17:10→19:08)
[2023-09-19 17:11] LABS: Appearance Urine Clear (Clear); Blood Urine Negative (Negative); Color Urine Dark Yellow; Glucose Urine UA Negative (Negative); Ketones Urine Negative (Negative); Leukocyte Esterase Urine Negative (Negative); Nitrite Urine Negative (Negative); Protein Urine Negative (Negative); Specific Gravity Urine 1.017 (1.000-1.030); Urobilinogen Urine Positive (Negative)
[2023-09-19 17:18] LABS: Albumin Level 2.6 gm/dl (3.4-5.0); BUN Creatinine Ratio 32.9 (10-20); Bilirubin Direct 2.2 mg/dl (0-0.2); Bilirubin,Total 3.3 mg/dl (0.2-1.0); Calcium 7.6 mg/dl (8.6-10.3); Est GFR (Non-African American) 100.1 ml/min; Magnesium 1.6 mg/dl (1.7-2.4); Potassium 3.9 mmol/L (3.5-5.1)
[2023-09-19 17:19] LABS: Bilirubin Urine 1+ (Negative)
[2023-09-19 17:22] LABS: Troponin I High Sensitivity 10.9 pg/ml (0-20)
[2023-09-19 17:28] LABS: Anisocytosis Present; Basophils # (auto) 0.01 K/uL (0.00-0.20); Basophils % (auto) 0.3 %; Dohle Bodies 1+; Eosinophils # (auto) 0.03 K/uL (0.00-0.50); Eosinophils % (auto) 0.8 %; Hematocrit (blood only) 27.1 % (42.0-52.0); Hemoglobin 8.8 g/dl (14.0-18.0); Immature Granulocytes % (auto) 8.3 %; Lymphocytes # (auto) 0.65 K/uL (1.20-3.40); Lymphocytes % (auto) 18.1 %; Mean Corpuscular Hemoglobin 31.3 pg (25.0-34.0); Mean Corpuscular Hgb Conc 32.5 g/dL (32.0-36.0); Mean Corpuscular Volume 96.4 fL (80.0-100.0); Monocytes # (auto) 0.35 K/uL (0.11-0.59); Monocytes % (auto) 9.7 %; Neutrophils # (auto) 2.26 K/uL (1.40-6.50); Neutrophils % (auto) 62.8 %; Nucleated RBC # (auto) 0.05 K/uL (0.00-0.12); Nucleated RBC % (auto) 1.4 %; Ovalocytes 1+; Platelet Count 50 K/uL (130-400); Poikilocytosis Present; RDW Coefficient of Variation 20.8 % (11.5-14.5); RDW Standard Deviation 72.2 fL (36.4-46.3); Red Blood Count 2.81 M/uL (4.70-6.10); Tear Drop Cells 2+; Toxic Granulation 1+
[2023-09-19] MEDS: MAGNESIUM SULFATE / D5W 1 GM/100 ML BAG IV SCH (17:40)
[2023-09-19] MEDS: OPTIRAY 320 100ml IV ONE (18:02)
[2023-09-19] MEDS: PIPERACILLIN/TAZOBACTAM 4.5 GM/100 ML BAG IV ONE (18:12)
--- NOTE | 2023-09-19 18:22 | CT Scan Report ---
CT abd pelvis IV con only CLINICAL HISTORY: diarrhea TECHNIQUE: Helical axial images of the abdomen and pelvis were obtained and displayed. Automated dose lowering techniques and/or adjustment according to patient size were utilized for this exam. This e xam was performed with intravenous contrast. CT DOSE: 1669.45 mGy.cm COMPARISON: Comparison is made to CT abdomen pelvis 07/02/2023 FINDINGS: Lower chest: Bibasilar atelectasis versus scarring is seen. Liver: Numerous hepatic hypodensities are increased in size and number from prior exam. Gallbladder and biliary tree: No calcified gallstones. Normal caliber wall. No intra- or extrahepatic biliary ductal dilation. Pancreas: Pancreatic tail mass is again seen measuring approximately 24 mm in diameter. Spleen: Stable splenomegaly measuring up to 19 mm in length. Adrenals: Unremarkable. Kidneys and ureters: Unremarkable. Bladder: Unremarkable. Reproductive organs: Unremarkable. Bowel: The appendix is normal. Lymph nodes Retroperitoneal: Retroperitoneal lymph nodes measure up to 13 mm in diameter. Pelvic: Unremarkable. Mesenteric: Unremarkable. Peritoneum: Moderate ascites is seen. 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 The portal vein remains patent. Abdominal wall: Right fat-containing inguinal hernia. Fat-containing umbilical hernia is seen. Bones: Degenerative changes in the visualized spine. IMPRESSION: 1. Moderate ascites is new from prior exam. No acute abnormalities to explain diarrhea. 2. Redemonstration of pancreatic mass. Increased size and number of hepatic and keeley metastases. 3. Stable splenomegaly and splenic vein occlusion with collateral formation. ACT 112: Negative or not required by law. Electronically signed by: Marquis Pierson M.D. 09/19/2023 6:19 PM
--- NOTE | 2023-09-19 20:36 | History & Physical Report ---
Date of Service September 19, 2023 Assessment & Plan (1) Sepsis: Plan: 63-year-old male with past med significant for adenocarcinoma of pancreas with mets to the liver, idiopathic chronic gout, hemochromatosis, portal hypertension with esophageal varices, hypertension, venous stasis dermatitis of both lower extremities, ureteral stricture, osteoarthritis, who presents with diarrhea for 2 weeks and also abdominal distention and bloating and discomfort. Patient has mild abdominal discomfort. And watery diarrhea several times a day for last 2 weeks and the stools are black. No nausea/ vomiting. Appetite is down. Denies any chest pain or shortness of breath. No cough. No fevers. No headache. No blurred visions. Ambulating okay in the house. Micturating okay. Hemodynamics are okay. He also following with palliative care and recently ran out of his pain medications. Possible sepsis. Elevated lactic acid. Elevated procalcitonin Ongoing diarrhea. Will check stool studies Empiric cefepime and flagyl Will also do diagnostic and therapeutic paracentesis Follow the cultures Gentle fluids Close monitor Adenocarcinoma of pancreas with mets to the liver Elevated total bilirubin Moderate ascites and splenic vein occlusion on CT scan Follows with heme-onc Currently under single agent gemcitabine. 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 difficile colitis History of gout Allopurinol History of hypertension Will hold lisinopril, Lasix Diltiazem with holding parameters will monitor BPH On Proscar GERD On omeprazole DVT prophylaxis SCDs as patient has thrombocytopenia History of Present Illness Chief Complaint: Diarrhea, abdominal discomfort and bloating Primary Care Provider: [facility] 63-year-old male with past med significant for adenocarcinoma of pancreas with mets to the liver, idiopathic chronic gout, hemochromatosis, portal hypertension with esophageal varices, hypertension, venous stasis dermatitis of both lower extremities, ureteral stricture, osteoarthritis, who presents with diarrhea for 2 weeks and also abdominal distention and bloating and discomfort. Patient has mild abdominal discomfort. And watery diarrhea several times a day for last 2 weeks and the stools are black. No nausea/ vomiting. Appetite is down. Denies any chest pain or shortness of breath. No cough. No fevers. No headache. No blurred visions. Ambulating okay in the house. Micturating okay. Hemodynamics are okay. He also following with palliative care and recently ran out of his pain medications Past medical history. As mentioned above Past surgical history. Colonoscopy. Cystourethroscopy. EGD. EGD with endoscopic ultrasound. Laparoscopic pancreatectomy distal subtotal. Social history. Lives with girlfriend. Quit smoking in October 2022. No alcohol since October 2022. No drug use. Family history. Mother had cirrhosis. Father had heart attack in his 40s. Maternal grandfather had coronary disease. Paternal grandfather had emphysema. Coronary thrombosis. Maternal grandmother had diabetes. Paternal grandmother had coronary disease. Maternal aunt had liver cancer. Maternal uncle had liver cancer. Allergies Allergy/AdvReac Type Severity Reaction Status Date / Time No Known Allergies Allergy Verified 09/19/23 18:36 Home Medications Medication Instructions Recorded Confirmed Type allopurinol 300 mg tablet 300 mg PO QAM 05/02/22 09/19/23 History diltiazem HCl 120 mg capsule,24 120 mg PO DAILY 05/02/22 09/19/23 History hr,extended release lisinopril 10 mg tablet 10 mg PO DAILY 05/02/22 09/19/23 History finasteride 5 mg tablet 5 mg PO QAM 08/10/22 09/19/23 History omeprazole 20 mg capsule,delayed 20 mg PO DAILYBB 08/10/22 09/19/23 History release magnesium oxide 400 mg PO QAM 04/04/23 09/19/23 History ondansetron HCl 8 mg tablet 8 mg PO Q8 PRN Nausea 04/04/23 09/19/23 History potassium chloride 10 mEq 10 meq PO AMHS 04/04/23 09/19/23 History tablet,extended release silodosin 8 mg capsule 8 mg PO QAM 04/04/23 09/19/23 History baclofen 10 mg tablet 10 mg PO BID 08/18/23 09/19/23 History polyethylene glycol 3350 17 gram 17 g PO DAILY PRN Constipation 08/18/23 09/19/23 History oral powder packet (Miralax) sennosides 8.6 mg tablet (senna) 17.2 mg PO HS 08/18/23 09/19/23 History aspirin 81 mg tablet 81 mg PO QAM 09/19/23 09/19/23 History furosemide 20 mg tablet 20 mg PO QAM 09/19/23 09/19/23 History lactulose 10 gram/15 mL oral 20 g PO QAM 09/19/23 09/19/23 History solution Past Med/Surg History Medical History GERD (gastroesophageal reflux disease) Gout 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 Social History Smoking Status: Never smoker Tobacco Type: Cigarettes Second Hand Exposure: No; Hx Alcohol Use: No Hx Substance Use: No Preferred Language: Yakut Communication Ability: Effective Nitrocellulose Maker Required: No Beliefs That Will Affect Care: None marital status: Current Living Situation: Significant Other Other Information That Helps Us Care for You: No Feels Safe at Home: Yes Safety Concerns: Feels Safe At This Time Assistive Devices: None Review of Systems Review of Systems: All systems reviewed & are unremarkable except as noted in HPI & below Physical Exam Physical Exam: General- Not in distress Head- atraumatic Eyes- PERRL. ENT- oropharynx clear Neck- supple, no JVD. Lungs- clear to auscultation no wheezing or crackles. Heart- regular rhythm; no murmur, no gallop. Abdomen- normal bowel sounds, soft, mild diffuse discomfort, mild distension. Extremities- b/l lower extremity edema present chronic skin changes seen. Neuro- alert, oriented x 3; PERRL, no facial palsy; no dysarthria; moves extremities. Results & Data Results & Data Vital Signs (Past 12 Hours) Vital Signs Temp Pulse Pulse Resp BP BP Pulse Ox 09/19/23 19:00 102 H 16 130/73 99 09/19/23 17:20 117 H 09/19/23 17:07 36.7 C 117 H 18 134/82 99 09/19/23 15:48 117 H 18 98 09/19/23 15:08 37.5 C 132 H 20 145/79 H 99 O2 Del Method 09/19/23 19:00 Room Air 09/19/23 17:20 09/19/23 17:07 09/19/23 15:48 Room Air 09/19/23 15:08 Room Air Diagnostic Findings Laboratory Results WBC 3.60 K/ul (4.8-10.8) L 09/19/23 16:30 RBC 2.81 M/uL (4.70-6.10) L 09/19/23 16:30 Hgb 8.8 g/dl (14.0-18.0) L 09/19/23 16:30 Hct 27.1 % (42.0-52.0) L 09/19/23 16:30 MCV 96.4 fL (80.0-100.0) 09/19/23 16:30 MCH 31.3 pg (25.0-34.0) 09/19/23 16: MCHC 32.5 g/dL (32.0-36.0) 09/19/23 16: RDW Std Deviation 72.2 fL (36.4-46.3) H 09/19/23 16:30 RDW Coeff of Ophelia 20.8 % (11.5-14.5) H 09/19/23 16:30 Plt Count 50 K/uL (130-400) L 09/19/23 16:30 Immature Gran % (Auto) 8.3 % 09/19/23 16:30 Neut % (Auto) 62.8 % 09/19/23 16:30 Lymph % (Auto) 18.1 % 09/19/23 16:30 Mora % (Auto) 9.7 % 09/19/23 16:30 Eos % (Auto) 0.8 % 09/19/23 16:30 Baso % (Auto) 0.3 % 09/19/23 16:30 Neut # (Auto) 2.26 K/uL (1.40-6.50) 09/19/23 16:30 Lymph # (Auto) 0.65 K/uL (1.20-3.40) L 09/19/23 16:30 Mora # (Auto) 0.35 K/uL (0.11-0.59) 09/19/23 16:30 Eos # (Auto) 0.03 K/uL (0.00-0.50) 09/19/23 16:30 Baso # (Auto) 0.01 K/uL (0.00-0.20) 09/19/23 16:30 Immature Gran # (Auto) 0.30 K/uL (0.01-0.20) H 09/19/23 16:30 Absolute Nucleated RBC 0.05 K/uL (0.00-0.12) 09/19/23 16:30 Nucleated RBC % (auto) 1.4 % 09/19/23 16:30 Toxic Granulation 1+ 09/19/23 16:30 Dohle Bodies 1+ 09/19/23 16:30 Poikilocytosis Present 09/19/23 16:30 Anisocytosis Present 09/19/23 16:30 Tear Drop Cells 2+ 09/19/23 16:30 Ovalocytes 1+ 09/19/23 16:30 Sodium 136 mmol/L (136-145) 09/19/23 16:30 Potassium 3.9 mmol/L (3.5-5.1) 09/19/23 16:30 Chloride 108 mmol/L (98-107) H 09/19/23 16:30 Carbon Dioxide 21 mmol/L (21-32) 09/19/23 16:30 Anion Gap 7 (3-11) 09/19/23 16:30 BUN 24 mg/dl (6-23) H 09/19/23 16:30 Creatinine 0.73 mg/dl (0.6-1.4) 09/19/23 16:30 Est Cr Clr Drug Dosing 127.0 ml/min 09/19/23 16:30 Est GFR ( Amer) 116.0 ml/min 09/19/23 16:30 Est GFR (Non-Af Amer) 100.1 ml/min 09/19/23 16:30 BUN/Creatinine Ratio 32.9 (10-20) H 09/19/23 16:30 Glucose 150 mg/dl (70-99(Fasting)) H 09/19/23 16:30 Lactate 2.9 mmol/L (0.4-2.0) H* 09/19/23 18:56 Calcium 7.6 mg/dl (8.6-10.3) L 09/19/23 16:30 Magnesium 1.6 mg/dl (1.7-2.4) L 09/19/23 16:30 Total Bilirubin 3.3 mg/dl (0.2-1.0) H 09/19/23 16:30 Direct Bilirubin 2.2 mg/dl (0-0.2) H 09/19/23 16:30 AST 66 U/L (13-39) H 09/19/23 16:30 ALT 29 U/L (7-52) 09/19/23 16:30 Alkaline Phosphatase 208 U/L (34-104) H 09/19/23 16:30 Ammonia 29.0 umol/L (18-72) 09/19/23 16:57 Troponin I High Sens 10.9 pg/ml (0-20) 09/19/23 16:30 Total Protein 5.0 gm/dl (6.0-8.3) L 09/19/23 16:30 Albumin 2.6 gm/dl (3.4-5.0) L 09/19/23 16:30 Lipase 27 U/L (11-82) 09/19/23 16:30 Procalcitonin 1.41 ng/ml (0-0.5) H 09/19/23 16:30 Urine Color Dark Yellow 09/19/23 16:54 Urine Appearance Clear (Clear) 09/19/23 16:54 Urine pH 5.0 (4.5-7.5) 09/19/23 16:54 Ur Specific [place] 1.017 (1.000-1.030) 09/19/23 16:54 Urine Protein Negative (Negative) 09/19/23 16:54 Urine Glucose (UA) Negative (Negative) 09/19/23 16:54 Urine Ketones Negative (Negative) 09/19/23 16:54 Urine Blood Negative (Negative) 09/19/23 16:54 Urine Nitrite Negative (Negative) 09/19/23 16:54 Urine Bilirubin 1+ (Negative) H 09/19/23 16:54 Urine Urobilinogen Positive (Negative) H 09/19/23 16:54 Ur Leukocyte Esterase Negative (Negative) 09/19/23 16:54 Impressions Chest X-Ray 09/19/23 15:48 XR chest 1V portable CLINICAL HISTORY: Sepsis TECHNIQUE: Single frontal radiograph of the chest was obtained. Comparison: Comparison is made to chest radiograph 09/16/2023 FINDINGS: A port catheter is seen. The cardiomediastinal silhouette is normal. Lungs are underinflated but clear. No evidence of pleural effusion or pneumothorax. IMPRESSION: Lungs are underinflated without evidence of pneumonia. ACT 112: Negative or not required by law. Electronically signed by: Marquis Pierson M.D. 09/19/2023 4:40 PM Abdomen/Pelvis CT 09/19/23 17:26 CT abd pelvis IV con only CLINICAL HISTORY: diarrhea TECHNIQUE: Helical axial images of the abdomen and pelvis were obtained and displayed. Automated dose lowering techniques and/or adjustment according to patient size were utilized for this exam. This exam was performed with intravenous contrast. CT DOSE: 1669.45 mGy.cm COMPARISON: Comparison is made to CT abdomen pelvis 07/02/2023 FINDINGS: Lower chest: Bibasilar atelectasis versus scarring is seen. Liver: Numerous hepatic hypodensities are increased in size and number from prior exam. Gallbladder and biliary tree: No calcified gallstones. Normal caliber wall. No intra- or extrahepatic biliary ductal dilation. Pancreas: Pancreatic tail mass is again seen measuring approximately 24 mm in diameter. Spleen: Stable splenomegaly measuring up to 19 mm in length. Adrenals: Unremarkable. Kidneys and ureters: Unremarkable. Bladder: Unremarkable. Reproductive organs: Unremarkable. Bowel: The appendix is normal. Lymph nodes Retroperitoneal: Retroperitoneal lymph nodes measure up to 13 mm in diameter. Pelvic: Unremarkable. Mesenteric: Unremarkable. Peritoneum: Moderate ascites is seen. 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 The portal vein remains patent. Abdominal wall: Right fat-containing inguinal hernia. Fat-containing umbilical hernia is seen. Bones: Degenerative changes in the visualized spine. IMPRESSION: 1. Moderate ascites is new from prior exam. No acute abnormalities to explain diarrhea. 2. Redemonstration of pancreatic mass. Increased size and number of hepatic and keeley metastases. 3. Stable splenomegaly and splenic vein occlusion with collateral formation. ACT 112: Negative or not required by law. Electronically signed by: Marquis Pierson M.D. 09/19/2023 6:19 PM ECG Additional Comments: ECG. Sinus tachycardia rate of 123. No significant change was found.
[2023-09-19] MEDS ORDERED: NITROGLYCERIN SL 0.4 MG/TAB TAB SL PRN (22:30)
[2023-09-19] MEDS: SODIUM CHLORIDE 0.9% 1,000 ML IV SCH (23:46)
[2023-09-19] MEDS: metroNIDAZOLE 500 MG/100 ML BAG IV SCH (23:47)
[2023-09-19] MEDS: BACLOFEN 10 MG TAB PO SCH (23:47)
[2023-09-19] MEDS: POTASSIUM CHLORIDE 10 MEQ TABCR PO SCH (23:47)
[2023-09-20] MEDS: CEFEPIME 2,000 MG in SYRINGE 0 ML IV SCH (03:39)
--- OUTSIDE RECORDS SUMMARY | 2023-09-20 05:39 | External Medical Summary | Summary of Care ---
Author Name Unknown Organization [facility] Address [address] [place] [address] Phone [phone] Care Team Providers Care Data Assistant Name Role Phone Ray Royal MD Primary Care Provider [phone] Reason for Visit * Reason Comments Chemotherapy Gemzar. * Evaluate & Treat - Unlimited Visits (Within 30 days (routine)) - Authorized Specialty Diagnoses / Procedures Referred By Mike velázquez Referred To Contact Hematology Oncology Diagnoses Gallbladder cancer (HCC) Procedures Eval/Treat Anabell Driver PA-C [address] [place] [address] Referral ID Status Reason Start Date Expiration Date Visits Requested Visits Authorized [id number] Authorized Specialty Services Required 12/01/2022 12/06/[phone] Encounter Details Date Type Department Care Team (Latest Contact Info) Description 08/08/2023 11:30 AM EST Hem/Onc Treatment Hematology/Oncolog y Treatment, [address] [address] Neisha, Chair 5 Hem Onc [address] [place] [address] Adenocarcinoma of pancreas (HCC)*; Encounter for antineoplastic chemotherapy; Metastasis to liver (HCC) Allergies No known active allergiesdocumented as of this encounter (statuses as of 09/14/2023) Medications Medication Sig Dispensed Refills Start Date End Date Status Diclofenac Sodium 50 MG Oral Tablet Delayed Release (Voltaren)Indicatio ns:Idiopathic chronic gout of multiple sites without tophus,Primary osteoarthritis of both knees TAKE ONE TABLET BY MOUTH THREE TIMES DAILY NEEDED WITH FOOd FOR PAIN 60 Tablet 5 11/15/2021 Active Aspirin 81 MG Oral Tablet Delayed Release Take 1 Tablet by mouth in the morning. 0 Active dilTIAZem HCl 120 MG Oral TabletIndications:E ssential hypertension with goal blood pressure less than 140/90,Primary hypertension TAKE ONE TABLET BY MOUTH EVERY DAY 90 Tablet 3 09/14/2022 Active Allopurinol 300 MG Oral Tablet (Zyloprim)Indicatio ns:Idiopathic chronic gout of multiple sites without tophus Take 1 Tablet by mouth in the morning. 90 Tablet 4 10/04/2022 Active Omeprazole 20 MG Oral Capsule Delayed Release (PriLOSEC)Indicatio ns:Epigastric pain TAKE ONE CAPSULE BY MOUTH DAILY ONE HOUR BEFORE FIRST MEAL OF THE DAY 90 Capsule 2 10/27/2022 Active Lisinopril 10 MG Oral Tablet (Prinivil)Indicatio ns:Essential hypertension with goal blood pressure less than 140/90,Primary hypertension TAKE ONE TABLET BY MOUTH EVERY DAY 90 Tablet 2 10/27/2022 Active Ondansetron HCl 8 MG Oral Tablet (Zofran)Indications :Adenocarcinoma of pancreas (HCC),Metastasis to liver (HCC) Take 1 Tablet by mouth every 8 hours as needed for Nausea. 30 Tablet 3 11/17/2022 Active Prochlorperazine Maleate 10 MG Oral Tablet (Compazine)Indicati ons:Adenocarcinoma of pancreas (HCC),Metastasis to liver (HCC) Take 1 Tablet by mouth every 6 hours as needed for Nausea. 30 Tablet 3 11/17/2022 Active Loratadine 10 MG Oral Tablet (Claritin)Indicatio ns:Adenocarcinoma of pancreas (HCC),Metastasis to liver (HCC) Take 1 tablet daily for 5 days starting the day before udenyca injection 30 Tablet 1 11/17/2022 Active Finasteride 5 MG Oral Tablet (Proscar)Indication s:BPH with obstruction/lower urinary tract symptoms Take 1 Tablet by mouth in the morning. 90 Tablet 3 02/13/2023 Active Magnesium Oxide -Mg Supplement 400 (240 Mg) MG Oral Tablet (Mag-Ox)Indications :Hypomagnesemia Take 1 Tablet by mouth in the morning. 30 Tablet 2 02/23/2023 Active Loperamide HCl 2 MG Oral Capsule (Imodium)Indication s:Adenocarcinoma of pancreas (HCC),Metastasis to liver (HCC) Take 2 tablets after the first episode of diarrhea each day and 1 tablet after each subsequent episode. Can take up to 8 tablets in a 24 hours time period. 60 Capsule 1 03/01/2023 Active Potassium Chloride ER 10 MEQ Oral Tablet Extended ReleaseIndications: Hypokalemia,Adenoca rcinoma of pancreas (HCC),Metastasis to liver (HCC) Take 1 Tablet by mouth in the morning and 1 Tablet before bedtime. 60 Tablet 3 04/04/2023 Active Mirtazapine 30 MG Oral Tablet (Remeron) Take 0.5 Tablets by mouth at bedtime. 0 Active Dextromethorphan Polistirex ER 30 MG/5ML Suspension Extended Release (Robitussin 12 Hour Cough) Take by mouth every 8 hours. As needed 0 Active Probiotic Acidophilus Oral Tablet Chewable Take by mouth daily. 0 Active Tamsulosin HCl 0.4 MG Oral Capsule (Flomax) Take 1 Capsule by mouth every night at bedtime. 0 Active Phenazopyridine HCl 200 MG Oral Tablet (Pyridium) Take 1 Tablet by mouth 3 times a day after meals as needed for urinary burning and urgency. 18 Tablet 0 05/31/2023 Active Silodosin 8 MG Oral Capsule (Rapaflo)Indication s:BPH with obstruction/lower urinary tract symptoms Take 1 Capsule by mouth in the morning. 30 Capsule 6 06/27/2023 Active Baclofen 10 MG Oral Tablet (Lioresal)Indicatio ns:Cancer related pain Take 1 Tablet by mouth 2 times a day as needed for Muscle spasms. 30 Tablet 0 06/28/2023 Active Ondansetron HCl 8 MG Oral TabletIndications:A denocarcinoma of pancreas (HCC),Metastasis to liver (HCC) Take 1 Tablet by mouth every 8 hours as needed for Nausea. 30 Tablet 3 07/18/2023 Active Prochlorperazine Maleate 10 MG Oral Tablet (Compazine)Indicati ons:Adenocarcinoma of pancreas (HCC),Metastasis to liver (HCC) Take 1 Tablet by mouth every 6 hours as needed for Nausea. 60 Tablet 2 07/18/2023 Active oxyCODONE HCl 10 MG Oral Tablet (Roxicodone)Indicat ions:Cancer related pain Take 1 Tablet by mouth every 4 hours as needed for Pain, Severe. 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 Iron overload 12/05/2019 Portal hypertension with esophageal varices 10/25 Hemochromatosis 11/13/2019 Overview: heterozygous C 282Y positive Hepatic steatosis 09/13/2019 Chronic right shoulder pain 05/24/2019 Idiopathic chronic gout of multiple sites withou t tophus 02/01/2019 Primary hypertension documented as of this encounter (statuses as of 09/14/2023) Immunizations Name Administration Dates Next Due COVID-19 mRNA, LNP-s, No Pre serve, 2-Dose Series ([employer]) 02/23/2021,02/02/2021 HEP A - Hepatitis A (Adult > 18 yrs) 09/21/2020, 02/10/2020 Hepatitis B, 20+ yrs 09/21/2020,03/23/2020,02/09 Pneumococcal Conjugate Vacci ne, 20-valent ([id number]) 10/26/2022(Deferred: Patient Refused) Pneumococcal Polysaccharide PPV23 (Pneumovax) 05/10/2021 Seasonal Influenza, PF, 6 M & above, IM , (FluLaval or Fluzone) 03/13/2023,03/24/2022,05/10/2021,05/24 TDAP (age 10 and older)(Boostrix) 11/12/2021,11/2018 Zoster Vaccine Recombinant (Shingrix) 11/02/2020 ,09/30/2019 documented as of this encounter Social History Tobacco Use Types Packs/Day Years Used Date Smoking Tobacco: Former Cigarettes Q uit: 10/2022 Smokeless Tobacco: Former Alcohol Use Standard Drinks/Week Comments Not Currently 0 (1 standard drink = 0.6 oz pur e alcohol) none since October 2022 AUDIT-C Answer Date Recorded Frequency of Alcohol Consumption 2-3 times a wee k 10/22/2018 Average Number of Drinks Not on file 019 Frequency of Binge Drinking Never 09/25 PHQ-2 Answer Date Recorded PHQ-2 Score -1 03/15/2020 Hunger Vital Sign Answer Date Recorded Within the past 12 months, y ou worried that your food would run out before you got the money to buy more. Sometimes true Within the past 12 months, t he food you bought just didn't last and you didn't have money to get more. Sometimes true 01/2023 Sex and Gender Information Value Date Recorded Sex Assigned at Not on file Gender Identity Not on file Sexual Orientation Not on file Job Start Date Occupation Industry Not on file Not on file Not on file documented as of this encounter Last Filed Vital Signs Vital Sign Reading Time Taken Comments Blood Pressure 132/81 08/08/2023 10:50 AM EST Pulse 110 08/08/2023 10:50 AM EST Temperature 36.6 C (97.9 F) 08/08/2023 1 0:50 AM EST Respiratory Rate 18 08/08/2023 10:5 0 AM EST Oxygen Saturation 97% 08/08/2023 10: 50 AM EST Inhaled Oxygen Concentration - - Weight 114.4 kg (252 lb 3.2 oz) 024 10:50 AM EST Height - - Body Mass Index 31.52 05/31/2023 10:31 AM EST documented in this encounter Nursing Notes * Juju Hall RN - 08/08/2023 12:08 PM EST Goals: Patient will remain free from injury. Possible barriers to meeting goals: Fall risk d/t ambulation with IV pole. Stability of the patient: Moderately stable - low risk of patient condition declining or worsening Summary regarding today's goals: Met: Patient remained free of injury. Functional status at today's visit: Fully active, able to carry on all pre-disease performance without restriction The drug name, dose, infusion volume, rate and route of administration, expiration date and time, appearance and physical integrity of the drug and rate set on the pump and sequencing of drug administration (as applicable) were verified by me and second sign-in RN. Patient was assessed for symptoms or adverse side effects during treatment. Patient tolerated procedure well. Discharged in stable condition. * Juju Hall RN - 08/08/2023 11:03 AM EST Chair 10. Patient arrived for gemzar. VAD accessed. Chemo agents Gemzar Appetite decreased. Nausea/Vomiting a little nausea. Diarrhea no Constipation sometimes but takes medication to help. Mucositis no Fatigue no Bleeding no Infection no Rash no Numbness tingling still some in fingers and toes but is getting better. Pain back pain Radiation no ABN Labs WNL for treatment Alt in Tx: no Return in 1 week. Safety and Risk for Injury Patient will remain free from injury. Ensure appropriate safety devices are available. Provide and maintain safe environment. documented in this encounter Plan of Treatment Upcoming Encounters Date Type Department Care Team (Late st Contact Info) Description 09/18/2023 1:45 PM EDT Imaging Radiology [address] [place] [address] 09/27/2023 12:50 PM EDT Laboratory Laboratory [facility] Neisha [place] [address] [place] [phone] Neisha, Lab Scene 200 [facility] [place] [address] 09/27/2023 2:00 PM EDT Hem/Onc Treatment Hematology/Oncology Treatment, [place] [address] [place] [phone] Neisha, Chair 1 Hem Onc [address] [place] [address] 10/04/2023 1:00 PM EDT Laboratory Laboratory [facility] Neisha [place] [address] [place] [phone] Neisha Lab [facility] [address] [place], [place] [address] 10/04/2023 2:00 PM EDT Hem/Onc Treatment Hematology/Oncology [facility] [address] [facility], [place] [address] Neisha, Chair 10 Hem Onc [facility] [address] [place], [place] [address] 10/04/2023 2:00 PM EDT Office Visit Palliative Medicine [facility] [place] [address] [facility], [place] [phone] Shante Prado MD [address] [place] [address] 10/10/2023 12:45 PM EDT Imaging Radiology [address], [place] [address] [facility] [place] [address] 10/19/2023 10:30 AM EDT Laboratory Laboratory [facility] [place] [address] [place] [phone] Neisha Lab [facility] [address] [place], [place] [address] 10/19/2023 11:00 AM EDT Office Visit Hematology/Oncology [facility] [place] [address] [place], [place] [phone] Rachel Marina CRNP [address] [place] [address] 10/19/2023 11:30 AM EDT Hem/Onc Treatment Hematology/Oncology Treatment, [place] [address] [facility], [place] [phone] Neisha, Chair 11 Hem Onc [address] [place] [address] 10/26/2023 12:50 PM EDT Laboratory Laboratory [facility] [address] [place] [phone] Neisha, Lab [address] 200 [facility] [place] [address] 10/26/2023 2:00 PM EDT Hem/Onc Treatment Hematology/Oncology Treatment, [place] [address] [place] [address] Neisha, Chair 9 Hem Onc [address] [place] [address] 11/15/2023 11:30 AM EDT Office Visit Urology, [facility] 132 [facility] [place] [phone] Adolfo Key MD 27 [facility] [address] [place] [address] Scheduled Procedures Name Priority Associated Diagnoses Date/Ti me COLONOSCOPY FLEXIBLE PROXIMAL DIAGNOSTIC Recall History of colon polyps Health Maintenance Due Date Last Done Comments HIV Screening 1975 Depression Screening 09/29/2020 09/30/2019 COVID-19 Vaccine (3 - Pfizer risk series) 03/23/2021 02/23/2021, 02/02/2021 Pneumococcal Vaccine: Pediatrics (0 to 5 Years) and At-Risk Patients (6 to 64 Years) (2 of 2 - PCV) 05/10/2022 05/10/2021 GFR 09/12/2024 09/13/2023, 08/24, 09/01/2023, Additional history exists Albumin/Creatinine Ratio 09/14/2025 023, 09/07/2021, 10/22/2018 Diabetes Screening 09/12/2026 09/13/2023, 0 09/06/2023, 09/01/2023, Additional history exists Lipid Panel 11/25/2027 11/24/2022, 10/22/2018 COLONOSCOPY-EVERY 5 YRS AGES 18-100 01/04/2028 01/03/2023, 01/03/2023, 04/17/2020, Additional history exists DTaP,Tdap,and Td Vaccines (3 - Td or Tdap) 11/13/2031 11/12/2021, 11/29/2018 Hepatitis B Completed 09/21/2020, 02/25, 02/10/2020 Zoster Vaccines Completed 11/02/2020, 09/30/2019 COLONOSCOPY-ANNUAL AGES 18-100 Discontinued 01/03/2023, 01/03/2023, 04/17/2020, Additional history exists COLONOSCOPY-EVERY 2 YRS AGES 18-100 Discontinued 01/03/2023, 01/03/2023, 04/17/2020, Additional history exists Influenza Vaccine (FLU shot) Completed 03/13/2023, 03/24/2022, 05/10/2021, Additional history exists GARDASIL-HPV IMMUNIZATION SERIES Aged Out No longer eligible based on patient's age to complete this topic MENINGOCOCCAL (MENACTRA/MENVEO) Aged Out No longer eligible based on patient's age to complete this topic documented as of this encounter Medical Devices Implanted Type Area Septic Tank Cleaner Device Identifier Shelf Expiration Date Model / Serial / Lot Port Implant W/8f Poly Cath - [id number] Implanted:Qty : 1 on 12/01/2022 by Brad Cerda DO at OR [facility] Right: Chest CR BARD : PERIPHERAL VASCULAR [id number] 02/24/2024 [id number] / / [id number] System Urolift - [id number] Implanted:Qty : 6 on 05/31/2023 by Adolfo Key MD at OR [facility] [employer] 09/01/2023 [id number] / / [id number] Description:prostate documented as of this encounter Visit Diagnoses Diagnosis Adenocarcinoma of pancreas (HCC)- Primary Malignant neoplasm of pancreas, part unspecified Encounter for antineoplastic chemotherapy Metastasis to liver (HCC) Secondary malignant neoplasm of liver documented in this encounter Administered Medications Inactive Administered Medications - up to 3 most recent administrations Medication Order MAR Action Action Date Dose Rate Site gemcitabine (Gemzar) 2,600 mg in NSS 250 mL infusion 2,600 mg (rounded from 2,500 mg = 1,000 mg/m2 2.5 m2 Treatment Plan BSA from Recorded weight), IV Piggyback, ONCE, 1 dose, On Mon08/08/23 at 1230, Administer over 30 Minutes Start Infusion 08/08/2023 11:30 AM EST 2,600 mg 500 mL/hr hEParin 100 UNIT/ML Lock Flush inj 500 Units 500 Units (5 mL), IV Lock, PRN Other, IV Flush, Starting on Mon08/08/23 at 1052, Until Mon08/08/23 at 1609, For 24 hours, Do not flush if lock, PICC, or central line not in place; IV infusing or unable to flush. Given 08/08/2023 12:04 PM EST 500 Units NSS infusion Intravenous, at 50 mL/hr, PRN, Starting on Mon08/08/23 at 1200, Until Mon08/08/23 at 1609, Maintenance line Start Infusion 08/08/2023 11:00 AM EST 50 mL/hr ondansetron (Zofran) tab 8 mg 8 mg, Oral, ONCE, On Mon08/08/23 at 1200, For 1 dose, Give 30 minutes prior to chemotherapy. Given 08/08/2023 11:00 AM EST 8 mg sodium chloride 0.9 % flush central line 10 mL 10 mL, IV Push, PRN Other, IV Flush, Starting on Mon08/08/23 at 1052, Until Mon08/08/23 at 1609, For 24 hours, Do not flush if lock, PICC, or central line not in place; IV infusing or unable to flush. 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 Question Answer Comments Discussion of Advance Directives occurred with: Patient Code Status History Code Status Date Activated Date Inactivated Comments Full Code 05/31/2023 10:20 AM 05/31/2023 12:00 PM Thi s order reflects the patients wishes and were consensually agreed upon. Question Answer Comments Discussion of Advance Directives occurred with: Patient Full Code 10/26/2022 10:45 AM 10/26/2022 9:36 PM Question Answer Comments Discussion of Advance Directives occurred with: Not Discussed due to patient's condition Care Teams Data Assistant Relationship Specialty Start Date End Date Ray Royal MD [address] [place] [address] [place] [address] PCP - General Family Medicine 10/22/18 documented as of this encounter
--- OUTSIDE RECORDS SUMMARY | 2023-09-20 05:39 | External Medical Summary | Summary of Care ---
Author Name Unknown Organization [facility] Address [address] [place] [address] Phone [phone] Care Team Providers Care Big Data Lead Name Role Phone Ray Royal MD Primary Care Provider [phone] Reason for Visit * Reason Comments Chemotherapy Gemzar. * Evaluate & Treat - Unlimited Visits (Within 30 days (routine)) - Authorized Specialty Diagnoses / Procedures Referred By Mike velázquez Referred To Contact Hematology Oncology Diagnoses Gallbladder cancer (HCC) Procedures Eval/Treat Anabell Driver PA-C [address] [place] [address] [address] Referral ID Status Reason Start Date Expiration Date Visits Requested Visits Authorized [id number] Authorized Specialty Services Required 12/01/2022 12/06/[phone] Encounter Details Date Type Department Care Team (Latest Contact Info) Description 08/08/2023 11:30 AM EST Hem/Onc Treatment Hematology/Oncolog y Treatment, [address] [phone] Neisha, Chair 5 Hem Onc [address] [place] [address] Adenocarcinoma of pancreas (HCC)*; Encounter for antineoplastic chemotherapy; Metastasis to liver (HCC) Allergies No known active allergiesdocumented as of this encounter (statuses as of 09/13/2023) Medications Medication Sig Dispensed Refills Start Date [...] as of this encounter (statuses as of 09/13/2023) Active Problems Problem Noted Date Diagnosed Date [...] as of this encounter (statuses as of 09/13/2023) Immunizations Name Administration Dates Next Due COVID-19 mRNA, LNP-s, No Pre serve, 2-Dose Series ([employer]) 02/23/2021,02/02/2021 HEP A - Hepatitis A (Adult > 18 yrs) 09/21/2020, 02/10/2020 Hepatitis B, 20+ yrs 09/21/2020,03/23/2020,02/09 Pneumococcal Conjugate Vacci ne, 20-valent ([id number]) 10/26/2022(Deferred: Patient Refused) Pneumococcal Polysaccharide PPV23 (Pneumovax) [...] Description 09/18/2023 1:45 PM EDT Imaging Radiology [address] [place] [address] 09/27/2023 12:50 PM EDT Laboratory Laboratory [facility] Neisha [place] [address] [place] [phone] Neisha, Lab Scene 200 [facility] [place] [address] 09/27/2023 2:00 PM EDT Hem/Onc Treatment Hematology/Oncology Treatment, [place] [address] [place] [phone] Neisha, Chair 1 Hem Onc [address] [address] [place] [address] 10/04/2023 1:00 PM EDT Laboratory Laboratory [facility] Neisha [place] [address] [place] [phone] [facility]isha [facility] [address] [place], [place] [address] 10/04/2023 2:00 PM EDT Hem/Onc Treatment Hematology/Oncology [facility] 200 [facility], [place] [address] Neisha, Chair 10 Hem Onc [facility] [address] [place], [place] [address] 10/04/2023 2:00 PM EDT Office Visit Palliative Medicine [facility] [place] 200 [facility], [place] [phone] Shante Prado MD [address] [place] [address] 10/10/2023 12:45 PM EDT Imaging Radiology [address], [place] [address] [facility] [place] [address] 10/19/2023 10:30 AM EDT Laboratory Laboratory [facility] [place] [address] [place] [phone] Neisha Lab [facility] [address] [place], [place] [address] 10/19/2023 11:00 AM EDT Office Visit Hematology/Oncology [facility] [place] [address] [place], [place] [phone] Rachel Marina CRNP [address] [place] [address] 10/19/2023 11:30 AM EDT Hem/Onc Treatment Hematology/Oncology Treatment, [place] 200 [facility], [place] [phone] Neisha, Chair 11 Hem Onc [place] [place] [address] 10/26/2023 12:50 PM EDT Laboratory Laboratory [facility] [address] [place] [phone] Neisha, Lab [address]en[address] 200 [facility] [place] [address] 10/26/2023 2:00 PM EDT Hem/Onc Treatment Hematology/Oncology Treatment, [place] [address] [place] [address] Neisha, Chair 9 Hem Onc [address] [place] [address] 11/15/2023 11:30 AM EDT Office Visit Urology, [facility] 132 [facility] [place] [phone] Adolfo Key MD 27 [facility] [address] [place] [address] Scheduled Procedures [...] this encounter Medical Devices Implanted Type Area Sericulture Teacher Device Identifier Shelf Expiration Date Model / Serial / Lot Port Implant W/8f Poly Cath - [id number] Implanted:Qty : 1 on 12/01/2022 by Brad Cerda DO at OR [facility] Right: Chest CR BARD : PERIPHERAL VASCULAR [id number] 02/24/2024 [id number] / / [id number] System Urolift - [id number] Implanted:Qty : 6 on 05/31/2023 by Adolfo Key MD at OR [facility] [employer] 09/01/2023 [id number] / / [id number] Description:prostate documented as of this encounter Visit [...] Documents on File Type Date Recorded Patient Manager Photo Expl anation POLST 07/13/2023 4:08 PM POLST [...] Discussed due to patient's condition Care Teams Big Data Lead Relationship Specialty Start Date End Date Ray Royal MD [address] [place] [address] [place] [address] PCP - General Family Medicine 10/22/18 documented as of this encounter
--- OUTSIDE RECORDS SUMMARY | 2023-09-20 05:39 | External Medical Summary | Summary of Care ---
Author Name Unknown Organization [facility] Address [address] [place] [address] Phone [phone] Care Team Providers Care Director Of Neurology Name Role Phone Ray Royal MD Primary Care Provider [phone] Reason for Visit * Reason Onset Date Comments FYI 09/14/2023 Shan patient. Encounter Details Date Type Department Care Team (Late st Contact Info) Description 09/14/2023 Telephone Hematology/Oncology [facility] [place] [address] [place] [address] Services, Scheduling [address] [place] [address] FYI (Shan patient./) Allergies No known active allergiesdocumented as of this encounter (statuses as of 09/14/2023) Medications Medication Sig Dispensed Refills Start Date End Date Status Diclofenac Sodium 50 MG Oral Tablet Delayed Release (Voltaren)Indications :Idiopathic chronic gout of multiple sites without tophus,Primary osteoarthritis of both knees TAKE ONE TABLET BY MOUTH THREE TIMES DAILY NEEDED WITH FOOd FOR PAIN 60 Tablet 5 11/15/2021 Active Aspirin 81 MG Oral Tablet Delayed Release Take 1 Tablet by mouth in the morning. 0 Active dilTIAZem HCl 120 MG Oral TabletIndications:Ess ential hypertension with goal blood pressure less than 140/90,Primary hypertension TAKE ONE TABLET BY MOUTH EVERY DAY 90 Tablet 3 09/14/2022 Active Allopurinol 300 MG Oral Tablet (Zyloprim)Indications :Idiopathic chronic gout of multiple sites without tophus Take 1 Tablet by mouth in the morning. 90 Tablet 4 10/04/2022 Active Omeprazole 20 MG Oral Capsule Delayed Release (PriLOSEC)Indications :Epigastric pain TAKE ONE CAPSULE BY MOUTH DAILY ONE HOUR BEFORE FIRST MEAL OF THE DAY 90 Capsule 2 10/27/2022 Active Lisinopril 10 MG Oral Tablet (Prinivil)Indications :Essential hypertension with goal blood pressure less than 140/90,Primary hypertension TAKE ONE TABLET BY MOUTH EVERY DAY 90 Tablet 2 10/27/2022 Active Ondansetron HCl 8 MG Oral Tablet (Zofran)Indications:A denocarcinoma of pancreas (HCC),Metastasis to liver (HCC) Take 1 Tablet by mouth every 8 hours as needed for Nausea. 30 Tablet 3 11/17/2022 Active Prochlorperazine Maleate 10 MG Oral Tablet (Compazine)Indication s:Adenocarcinoma of pancreas (HCC),Metastasis to liver (HCC) Take 1 Tablet by mouth every 6 hours as needed for Nausea. 30 Tablet 3 11/17/2022 Active Loratadine 10 MG Oral Tablet (Claritin)Indications :Adenocarcinoma of pancreas (HCC),Metastasis to liver (HCC) Take 1 tablet daily for 5 days starting the day before udenyca injection 30 Tablet 1 11/17/2022 Active Finasteride 5 MG Oral Tablet (Proscar)Indications: BPH with obstruction/lower urinary tract symptoms Take 1 Tablet by mouth in the morning. 90 Tablet 3 02/13/2023 Active Magnesium Oxide -Mg Supplement 400 (240 Mg) MG Oral Tablet (Mag-Ox)Indications:H ypomagnesemia Take 1 Tablet by mouth in the morning. 30 Tablet 2 02/23/2023 Active Loperamide HCl 2 MG Oral Capsule (Imodium)Indications: Adenocarcinoma of pancreas (HCC),Metastasis to liver (HCC) Take 2 tablets after the first episode of diarrhea each day and 1 tablet after each subsequent episode. Can take up to 8 tablets in a 24 hours time period. 60 Capsule 1 03/01/2023 Active Potassium Chloride ER 10 MEQ Oral Tablet Extended ReleaseIndications:Hy pokalemia,Adenocarcin edie of pancreas (HCC),Metastasis to liver (HCC) Take [...] 05/31/2023 Active Silodosin 8 MG Oral Capsule (Rapaflo)Indications: BPH with obstruction/lower urinary tract symptoms Take 1 Capsule by mouth in the morning. 30 Capsule 6 06/27/2023 Active Baclofen 10 MG Oral Tablet (Lioresal)Indications :Cancer related pain Take 1 Tablet by mouth 2 times a day as needed for Muscle spasms. 30 Tablet 0 06/28/2023 Active Ondansetron HCl 8 MG Oral TabletIndications:Marj nocarcinoma of pancreas (HCC),Metastasis to liver (HCC) Take 1 Tablet by mouth every 8 hours as needed for Nausea. 30 Tablet 3 07/18/2023 Active Prochlorperazine Maleate 10 MG Oral Tablet (Compazine)Indication s:Adenocarcinoma of pancreas (HCC),Metastasis to liver (HCC) Take 1 Tablet by mouth every 6 hours as needed for Nausea. 60 Tablet 2 07/18/2023 Active Senna 8.6 MG Oral TabletIndications:Con stipation due to pain medication Take 2 Tablets by mouth at bedtime. 60 Tablet 0 08/09/2023 Active Polyethylene Glycol 3350 17 GM/SCOOP Oral Powder (MiraLax)Indications: Constipation due to pain medication Take 17 g by mouth in the morning. 255 g 0 08/09/2023 Active oxyCODONE HCl 10 MG Oral Tablet (Roxicodone)Indicatio ns:Cancer related pain Take 1 Tablet by mouth every 4 hours as needed for Pain, Severe. 60 Tablet 0 09/06/2023 Active Lactulose 10 GM/15ML Oral Solution (Constulose)Indicatio ns:Adenocarcinoma of pancreas (HCC),Metastasis to liver (HCC),Hepatic encephalopathy (HCC) Take 30 mL by mouth in the morning. 480 mL 1 09/08/2023 Active Furosemide 20 MG Oral Tablet (Lasix)Indications:Ad enocarcinoma of pancreas (HCC),Metastasis to liver (HCC),Bilateral leg edema Take 1 Tablet by mouth in the morning. 30 Tablet 2 09/14/2023 Active documented as of this encounter (statuses as of 09/14/2023) Active Problems Problem Noted Date Diagnosed Date Dehydration 08/09/2023 Food insecurity 06/05/2023 Overview: Per [facility] Protocol Urethral stricture 04/03/2023 Slow [...] mRNA, LNP-s, No Pre serve, 2-Dose Series (Enh[employer]) 02/23/2021,02/02/2021 HEP A - Hepatitis A (Adult > 18 yrs) 09/21/2020, 02/10/2020 Hepatitis B, 20+ yrs 09/21/2020,03/23/2020,02/09 Pneumococcal Conjugate Vacci ne, 20-valent ([id number]) 10/26/2022(Deferred: Patient Refused) Pneumococcal Polysaccharide PPV23 (Pneumovax) [...] Frequency of Alcohol Consumption 2-3 times a kris singh 10/22/2018 Average Number of Drinks Not on [...] on file documented as of this encounter Miscellaneous Notes * Telephone Encounter - Benson Cisneros RN - 09/14/2023 1:37 PM EDT Called patient and informed him to start Lasix, advised to take this in morning or early afternoon,avoid nighttime during increased frequency. Pt is aware that this can decrease your potassium level, he will restart his potassium supplement. * Telephone Encounter - Teto Torrez MD - 09/14/2023 12:55 PM EDT Start Lasix 20 mg once a day and see how he does. Looks like he is on oral potassium supplementation. He should continue that. * Telephone Encounter - Benson Cisneros RN - 09/14/2023 12:[address] Torrez- you had spoke with patient yesterday during treatment. He had c/o lower leg swelling, would you like to prescribe something for fluid retention? Kidney function is stable as of 09/13/23. * Telephone Encounter - Merari Lynn OSA - 09/14/2023 10:54 AM EDT Iris with [facility] calling to inform that patients weight has been increasing a few pounds each day. Iris stating on 09/12/2023 patients weight was 242 lbs, 09/13/2023 weight was 247lbs, and today patient weight is 250 lbs. Iris also advising that patient has a good amount of pitting edema in his legs in which she advised patient to elevate legs 3 times a day along with compressions and low sodium diet. documented in this encounter Plan of Treatment Upcoming Encounters Date Type Department Care Team (Late st Contact Info) Description 09/18/2023 1:45 PM EDT Imaging Radiology [address] [place] [address] 09/27/2023 12:50 PM EDT [facility] [address] [place] [phone] Neisha Lab Scen[address] [place] [address] 09/27/2023 2:00 PM EDT Hem/Onc Treatment Hematology/Oncology Treatment, [place] [address] [place] [phone] Neisha, Chair 1 Hem Onc [place] [place] [address] 10/04/2023 1:00 PM EDT Laboratory Laboratory [facility] [place] [address] [place] [phone] [place], Lab Scen[address] [place] [address] 10/04/2023 2:00 PM EDT Hem/Onc Treatment Hematology/Oncology Treatment, [place] 200 [facility], [place] [phone] Neisha, Chair 10 Hem Onc [facility] [address] [place], [place] [address] 10/04/2023 2:00 PM EDT Office Visit Palliative Medicine [facility] [place] 200 [facility], [place] [address] Shante Prado [facility] [id number] 10/10/2023 12:45 PM EDT Imaging Radiology [address], [place] 132 [facility] [place], [place] [address] 10/19/2023 10:30 AM EDT Laboratory Laboratory [facility] [place] [address] [place] [phone] Neisha Lab [address]en[address] [place], [place] [address] 10/19/2023 11:00 AM EDT Office Visit Hematology/Oncology [facility] [place] [address] [place] [phone] Rachel Marina CRNP [address] [facility] [place] [address] 10/19/2023 11:30 AM EDT Hem/Onc Treatment Hematology/Oncology Treatment, [place] 200 [facility], [place] [address] Neisha, Chair 11 Hem Onc [address] [place] [address] 10/26/2023 12:50 PM EDT Laboratory Laboratory [facility] [place] [address] [place] [phone] [place], Lab [address] [place] [address] 10/26/2023 2:00 PM EDT Hem/Onc Treatment Hematology/Oncology Treatment, [place] [address] [place] [address] Neisha, Chair 9 Hem Onc [place] [place] [address] 11/15/2023 11:30 AM EDT Office Visit Urology, [facility] [address] [place] [address] Adolfo Key MD 27 [facility] [place] [address] [place] [address] [...] this encounter Medical Devices Implanted Type Area Structural Test Engineer Device Identifier Shelf Expiration Date Model / Serial / Lot Port Implant W/8f Poly Cath - [id number] Implanted:Qty : 1 on 12/01/2022 by Brad Cerda DO at OR [facility] Right: Chest CR BARD : PERIPHERAL VASCULAR [id number] 02/24/2024 [id number] / / [id number] System Urolift - [id number] Implanted:Qty : 6 on 05/31/2023 by Adolfo Key MD at OR [facility] [employer] 09/01/2023 [id number] / / [id number] Description:prostate documented as of this encounter Visit Diagnoses Diagnosis Adenocarcinoma of pancreas (HCC)- Primary Malignant neoplasm of pancreas, part unspecified Metastasis to liver (HCC) Secondary malignant neoplasm of liver Bilateral leg edema Edema documented in this encounter Advance Directives Documents on File Type Date Recorded Patient Biomedical Service Engineer Expl anation POLST 07/13/2023 4:08 PM POLST [...] Discussed due to patient's condition Care Teams Director Of Neurology Relationship Specialty Start Date End Date Ray Royal MD [address] [place] [address] [place] [phone] PCP - General Family Medicine 10/22/18 documented as of this encounter
--- OUTSIDE RECORDS SUMMARY | 2023-09-20 05:39 | External Medical Summary | Summary of Care ---
Author Name Unknown Organization [facility] Address [address] [place] [address] Phone [phone] Care Team Providers Care Laundry Equipment Operator Name Role Phone Ray Royal MD Primary Care Provider [phone] Reason for Visit * Reason Comments Chemotherapy Gemzar. * Evaluate & Treat - Unlimited Visits (Within 30 days (routine)) - Authorized Specialty Diagnoses / Procedures Referred By Mike velázquez Referred To Contact Hematology Oncology Diagnoses Gallbladder cancer (HCC) Procedures Eval/Treat Anabell Driver PA-C [address] [place] [address] Referral ID Status Reason Start Date Expiration Date Visits Requested Visits Authorized [id number] Authorized Specialty Services Required 12/01/2022 12/06/[id number] Encounter Details Date Type Department Care Team (Latest Contact Info) Description 08/08/2023 11:30 AM EST Hem/Onc Treatment Hematology/Oncolog y Treatment, [address] [phone] Neisha, Chair 5 [address] [place] [address] Adenocarcinoma of pancreas (HCC)*; Encounter for antineoplastic [...] mRNA, LNP-s, No Pre serve, 2-Dose Series (SpearFysh) 02/23/2021,02/02/2021 HEP A - Hepatitis A (Adult > 18 yrs) 09/21/2020, 02/10/2020 Hepatitis B, 20+ yrs 09/21/2020,03/23/2020,02/09 Pneumococcal Conjugate Vacci ne, 20-valent ([id number]) 10/26/2022(Deferred: Patient Refused) Pneumococcal Polysaccharide PPV23 (Pneumovax) [...] Description 09/18/2023 1:45 PM EDT Imaging Radiology [address] [place] [address] 09/27/2023 12:50 PM EDT Laboratory Laboratory [facility] Neisha [place] [address] [place] [phone] Neisha, Lab [place] 200 [facility] [place] [address] 09/27/2023 2:00 PM EDT Hem/Onc Treatment Hematology/Oncology Treatment, [place] [address] [place] [phone] Neisha, Chair 1 Hem Onc [address] [place] [address] 10/04/2023 1:00 PM EDT Laboratory Laboratory [facility] Neisha [place] [address] [place] [address] Neisha Lab [facility] [address] [place], [place] [address] 10/04/2023 2:00 PM EDT Hem/Onc Treatment Hematology/Oncology [facility] 200 [facility], [place] [address] Neisha, Chair 10 Hem Onc [facility] [address] [place], [place] [address] 10/04/2023 2:00 PM EDT Office Visit Palliative Medicine [facility] [place] 200 [facility], [place] [phone] Shante Prado MD [address] [place] [address] 10/10/2023 12:45 PM EDT Imaging Radiology [address], [place] 132 [facility] [place] [address] 10/19/2023 10:30 AM EDT Laboratory Laboratory [facility] [place] [address] [place] [phone] Neisha Lab [facility] [address] [place], [place] [address] 10/19/2023 11:00 AM EDT Office Visit Hematology/Oncology [facility] [place] [address] [place], [place] [phone] Rachel Marina CRNP [address] [place] [address] 10/19/2023 11:30 AM EDT Hem/Onc Treatment Hematology/Oncology Treatment, [place] 200 [facility], [place] [phone] Neisha, Chair 11 Hem Onc [place] [place] [address] 10/26/2023 12:50 PM EDT Laboratory Laboratory [facility] [address] [place] [phone] Neisha, Lab [address] 200 [facility] [place] [address] 10/26/2023 2:00 PM EDT Hem/Onc Treatment Hematology/Oncology Treatment, [place] [address] [place] [address] Neisha, Chair 9 Hem Onc [address] [place] [address] 11/15/2023 11:30 AM EDT Office Visit Urology, [facility] [address] [facility] [place] [phone] Adolfo Key MD 27 [facility] [place] [address] [place] [address] Scheduled Procedures [...] this encounter Medical Devices Implanted Type Area Digital Coordinator Device Identifier Shelf Expiration Date Model / Serial / Lot Port Implant W/8f Poly Cath - [id number] Implanted:Qty : 1 on 12/01/2022 by Brad Cerda DO at OR [facility] Right: Chest CR BARD : PERIPHERAL VASCULAR [id number] 02/24/2024 [id number] / / [id number] System Urolift - [id number] Implanted:Qty : 6 on 05/31/2023 by Adolfo Key MD at OR [facility] [employer] 09/01/2023 [id number] / / [id number] Description:prostate documented as of this encounter Visit [...] Documents on File Type Date Recorded Patient Data Entry Representative Expl anation POLST 07/13/2023 4:08 PM POLST [...] Discussed due to patient's condition Care Teams Laundry Equipment Operator Relationship Specialty Start Date End Date Ray Royal MD [address] [place] [address] [place] [address] PCP - General Family Medicine 10/22/18 documented as of this encounter
--- OUTSIDE RECORDS SUMMARY | 2023-09-20 05:39 | External Medical Summary | Summary of Care ---
Author Name Unknown Organization [facility] Address [address] [place] [address] Phone [phone] Care Team Providers Care Principal Statistical Programmer Name Role Phone Ray Royal MD Primary Care Provider [phone] Reason for Visit * Reason Onset Date Comments Advice 09/11/2023 Shan patient. Encounter Details Date Type Department Care Team (Late st Contact Info) Description 09/11/2023 Telephone Hematology/Oncology [facility] Neisha [place] [address] [place] [address] Services, Scheduling [address] [place] [address] Advice (Shan patient./) Allergies No known active allergiesdocumented as of this encounter (statuses as of 09/15/2023) Medications Medication Sig Dispensed Refills Start Date [...] the morning. 480 mL 1 09/08/2023 Active documented as of this encounter (statuses as of 09/15/2023) Active Problems Problem Noted Date Diagnosed Date Dehydration 08/09/2023 Food insecurity 06/05/2023 Overview: Per [employer] [...] as of this encounter (statuses as of 09/15/2023) Immunizations Name Administration Dates Next Due COVID-19 mRNA, LNP-s, No Pre serve, 2-Dose Series (Vaxxas) 02/23/2021,02/02/2021 HEP A - Hepatitis A (Adult > 18 yrs) 09/21/2020, 02/10/2020 Hepatitis B, 20+ yrs 09/21/2020,03/23/2020,02/09 Pneumococcal Conjugate Vacci ne, 20-valent ([id number]) 10/26/2022(Deferred: Patient Refused) Pneumococcal Polysaccharide PPV23 (Pneumovax) [...] encounter Miscellaneous Notes * Telephone Encounter - Teto Torrez MD - 09/15/2023 8:27 AM EDT I saw him briefly in the clinic, he has very fluctuating symptoms, leg edema increasing, stated on lasix. Has also hepatic encephalopathy, started on lactulose. * Telephone Encounter - Starla Casanova RN - 09/13/2023 2:19 PM EDT Spoke to patient. He confirmed that he has been having diarrhea. He does like to drink milk, so has milk products every day. He is not sure if this is contributing to his diarrhea as he had 2 glasses of milk this morning and has not had diarrhea today. Advised him to still avoid dairy products as he has noticed thispattern in the past. He did confirm he is taking senna, but is not sure if he takes miralax. He will check at home to see if he has the bottle of miralax with his pills. He will stop both of these ifhe has diarrhea again. Patient notes that he is scheduled for brain MRI tomorrow. Advised him to monitor back pain, if it persists can discuss moving up PET scan. Patient states that he has been taking oxycodone as needed,asked if he can take morphine if needed. Advised him to only take pain meds discussed with palliative care- they have prescribed oxycodone, can take this as needed. He verbalized understanding. * Telephone Encounter - Mariana Michele LPN - 09/13/2023 1:26 PM EDT 2nd attempt to reach patient No answer Patient currently arrived at for treatment Routed to nurse pool to see if they could relay below to patient * Telephone Encounter - Mariana Michele LPN - 09/13/2023 1:12 PM EDT Per Rachel Rucker: Mariana - Could you call patient and clarify symptoms? If he is having diarrhea, he can hold the senna and miralax. Once diarrhea subsides, restart senna 1 tab at bedtime and add miralax back in as needed. If he has dairy intolerance he should avoid milk products as this could certainly make diarrhea worse. Uncertain etiology of the back pain - last PET did not show any disease in back.PET is scheduled for 10/18 - will defer to oncology if this needs moved up. He does have oxycodone that he can take for pain as needed. Call to patient No answer Will try again later * Telephone Encounter - Anabell Marroquin LPN - 09/13/2023 9:56 AM EDT Spoke with patient regarding Plateau Form. He voiced concerns in regards to new symptoms; -Patient complaint of alternating diarrhea and constipation with sporadic bright red blood in stool. He states the "amount varies". He denies bleeding any where else at this time. -Patient is requesting what he can do for his diarrhea other than stool softeners? Patient states he drinks fluids throughout the day. -Patient questions if he should be "drinking milk", states he has a history of lactose intolerance.Patient states he does not like the milk alternatives. -Patient reports new onset lower back pain of, 8/10 on scale since yesterday. Patient denies any known mode of injury. Patient denies radiation to buttocks or BLE. Patient states he is "not sure" if he is "allowed to take his oxycodone". Per chart advised patient he can take his as needed [id number] mg, as directed on the bottle for severe pain. Patient does not verbalize understanding. -Patient complains of new onset BLE swelling for the "past three days". He states it is "difficult"to put his shoes on. Made RN aware. Will forward to Palliative medicine. * Telephone Encounter - Anabell Marroquin LPN - 09/13/2023 9:37 AM EDT 09/12/2023: Form received via fax. : Form completed and signed by . Faxed to [phone] and [phone]. Patient verbalized understanding. * Telephone Encounter - Starla Casanova RN - 09/11/2023 11:43 AM EDT Called patient. He has the form that we fill out each month for Plateau, but he forgot to bring that to us last week. This needs to be completed in order for patient to not owe his truck payment eachmonth. His brother has the form now but can fax it to us. Provided fax number for our office, patient states that he will give this to his brother. * Telephone Encounter - Merari Lynn OSA - 09/11/2023 11:22 AM EDT Patient calling wishing to have his medical records sent to his brother so he can make patients truck payment. Patient is wanting to verbally state that his brother may obtain that information. Please advise patient. documented in this encounter Plan of Treatment Upcoming Encounters Date Type Department Care Team (Late st Contact Info) Description 09/18/2023 1:45 PM EDT Imaging Radiology [address] [place] [address] 09/27/2023 12:50 PM EDT Laboratory Laboratory [facility] [place] [address] [place] [phone] Neisha, Lab [facility] [address] [place] [address] 09/27/2023 2:00 PM EDT Hem/Onc Treatment Hematology/Oncology Treatment, [address] [phone] Neisha, Chair 1 Hem Onc [facility] [address] [place] [address] [place] [address] 10/04/2023 1:00 PM EDT Laboratory Laboratory [facility] [place] [address] [place] [phone] Neisha, Lab [facility] 200 [facility] [place] [address] 10/04/2023 2:00 PM EDT Hem/Onc Treatment Hematology/Oncology [address], [address] [address] Neisha, Chair 10 Hem Onc [facility] 200 [facility] [place] [address] 10/04/2023 2:00 PM EDT Office Visit Palliative Medicine [facility] [address] [phone] Shante Prado MD [address] [place], [place] [address] [id number] 10/10/2023 12:45 PM EDT Imaging Radiology [facility]st [facility] [address] [facility] [address] 10/19/2023 10:30 AM EDT Laboratory Laboratory [facility] [address] [place] [address] Neisha, Lab [place] [address] [place] [address] 10/19/2023 11:00 AM EDT Office Visit Hematology/Oncology [facility] [place] [address] [place], [place] [phone] Rachel Marina CRNP [address] [place] [address] [place] [id number] 10/19/2023 11:30 AM EDT Hem/Onc Treatment Hematology/Oncology Treatment, [place] 200 [facility], [place] [phone] Neisha, Chair 11 Hem Onc [place] [address] [place], [place] [address] 10/26/2023 12:50 PM EDT Laboratory Laboratory [facility] [place] [address] [place] [phone] Neisha, Lab [place] [address] [place], [place] [address] 10/26/2023 2:00 PM EDT Hem/Onc Treatment Hematology/Oncology Treatment, [place] 200 [facility], [place] [phone] Neisha, Chair 9 Hem Onc [place] [address] [place] [address] 11/15/2023 11:30 AM EDT Office Visit Urology, [facility] 132 [facility] [place] [address] Adolfo Key MD [address] [address] [place] [address] Scheduled Procedures Name Priority Associated Diagnoses Date/Ti [...] this encounter Medical Devices Implanted Type Area Ed Manager Device Identifier Shelf Expiration Date Model / Serial / Lot Port Implant W/8f Poly Cath - [id number] Implanted:Qty : 1 on 12/01/2022 by Brad Cerda DO at OR [facility] Right: Chest CR BARD : PERIPHERAL VASCULAR [id number] 02/24/2024 [id number] / / [id number] System Urolift - [id number] Implanted:Qty : 6 on 05/31/2023 by Adolfo Key MD at OR [facility] [employer] 09/01/2023 [id number] / / [id number] Description:prostate documented as of this encounter Advance Directives Documents on File Type Date Recorded Patient Distance Learning Technician Expl anation POLST 07/13/2023 4:08 PM POLST [...] Discussed due to patient's condition Care Teams Principal Statistical Programmer Relationship Specialty Start Date End Date Ray Royal MD [address] [place] [address] [place] [id number] PCP - General Family Medicine 10/22/18 documented as of this encounter
--- OUTSIDE RECORDS SUMMARY | 2023-09-20 05:39 | External Medical Summary | Summary of Care ---
Author Name Unknown Organization [facility] Address [address] [place] [address] Phone [phone] Care Team Providers Care Director Of Cardiology Name Role Phone Ray Royal MD Primary Care Provider [phone] Reason for Visit * Reason Onset Date Comments FYI 09/14/2023 Shan patient. 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 Slow [...] mRNA, LNP-s, No Pre serve, 2-Dose Series (Premonix) 02/23/2021,02/02/2021 HEP A - Hepatitis A (Adult > 18 yrs) 09/21/2020, 02/10/2020 Hepatitis B, 20+ yrs 09/21/2020,03/23/2020,02/09 Pneumococcal Conjugate Vacci ne, 20-valent ([id number]) 10/26/2022(Deferred: Patient Refused) Pneumococcal Polysaccharide PPV23 (Pneumovax) [...] Frequency of Alcohol Consumption 2-3 times a kirs singh 10/22/2018 Average Number of Drinks Not [...] - 09/14/2023 10:54 AM EDT Iris with [facility] calling to inform that patients weight has [...] Description 09/18/2023 1:45 PM EDT Imaging Radiology [address] [place] [address] 09/27/2023 12:50 PM EDT Laboratory Laboratory [address] [place] [phone] Neisha, Lab [facility] [place] [address] 09/27/2023 2:00 PM EDT Hem/Onc Treatment Hematology/Oncology Treatment, [address] [place] [phone] Neisha, Chair 1 Hem Onc [address] [place] [address] 10/04/2023 1:00 PM EDT Laboratory Laboratory [facility] [place] [address] [place] [phone] Neisha, Lab [facility] 200 [facility] [place] [address] 10/04/2023 2:00 PM EDT Hem/Onc Treatment Hematology/Oncology Treatment, [address] [place] [phone] Neisha, Chair 10 Hem Onc [facility] 200 [facility] [place] [address] 10/04/2023 2:00 PM EDT Office Visit Palliative Medicine [place], [address] [place], [place] [phone] Shante Prado MD [address] [place] [address] 10/10/2023 12:45 PM EDT Imaging Radiology [address], [place] 132 [facility] [place] [address] 10/19/2023 10:30 AM EDT Laboratory Laboratory [facility] [address] [place], [place] [phone] Neisha, Lab [facility] [address] [place], [place] [address] 10/19/2023 11:00 AM EDT Office Visit Hematology/Oncology [facility] [address] [place], [place] [phone] Rachel Marina CRNP 400 [facility] [place] [address] 10/19/2023 11:30 AM EDT Hem/Onc Treatment Hematology/Oncology Treatment, [place] 200 [facility], [place] [phone] Neisha, Chair 11 Hem Onc [facility] 200 [facility] [place], [place] [address] 10/26/2023 12:50 PM EDT Laboratory Laboratory [facility] [place] [address] [place], [place] [phone] Neisha, Lab [place] [address] [place] [address] 10/26/2023 2:00 PM EDT Hem/Onc Treatment Hematology/Oncology Treatment, [place] 200 [facility], [place] [phone] Neisha, Chair 9 Hem Onc [place] [address] [place], [place] [address] 11/15/2023 11:30 AM EDT Office Visit Urology, [facility] [address] [place] [address] Adolfo Key MD [facility] [address] [place] [address] Scheduled Procedures Name [...] this encounter Medical Devices Implanted Type Area Developmental Psychologist Device Identifier Shelf Expiration Date Model / Serial / Lot Port Implant W/8f Poly Cath - [id number] Implanted:Qty : 1 on 12/01/2022 by Brad Cerda DO at OR [facility] Right: Chest CR BARD : PERIPHERAL VASCULAR [id number] 02/24/2024 [id number] / / [id number] System Urolift - [id number] Implanted:Qty : 6 on 05/31/2023 by Adolfo Key MD at OR [facility] [employer] 09/01/2023 [id number] / / [id number] Description:prostate documented as of this encounter Visit Diagnoses Diagnosis Adenocarcinoma of pancreas (HCC)- Primary Malignant neoplasm of pancreas, part unspecified Metastasis to liver (HCC) Secondary malignant neoplasm of liver Bilateral leg edema Edema documented in this encounter Advance Directives Documents on File Type Date Recorded 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
--- OUTSIDE RECORDS SUMMARY | 2023-09-20 05:40 | External Medical Summary | Summary of Care ---
Author Name Unknown Organization [facility] Address [address] [place] [address] Phone [phone] Care Team Providers Care Interior Design Instructor Name Role Phone Ray Royal MD Primary Care Provider + [phone] Reason for Visit * Reason Comments Chemotherapy C3/D8 - Gemzar * Episode Based Medications (Routine) - Authorized Specialty Diagnoses / Procedures Referred By Contac t Referred To Contact Diagnoses Adenocarcinoma of pancreas (HCC) Encounter for antineoplastic chemotherapy Metastasis to liver (HCC) Procedures UT IN GEMCITABINE HCL NOS 200MG Teto Torrez MD [address] [place] [address] [place] [address] Anc Hem/Onc [address] [address] Referral ID Status Reason Start Date Expiration Date V isits Requested Visits Authorized [id number] Authorized 12/01/2022 12/06/2023 [id number] Encounter Details Date Type Department Care Team (Latest Contact Info) Description 09/13/2023 2:00 PM EDT Hem/Onc Treatment Hematology/Oncolog y Treatment, [address] [address] Neisha, Chair 6 Hem On[address] [place] [address] Adenocarcinoma of pancreas (HCC)*; Encounter for antineoplastic [...] mRNA, LNP-s, No Pre serve, 2-Dose Series ([employer]) 02/23/2021,02/02/2021 HEP A - Hepatitis A (Adult > 18 yrs) 09/21/2020, 02/10/2020 Hepatitis B, 20+ yrs 09/21/2020,03/23/2020,02/09 Pneumococcal Conjugate Vacci ne, 20-valent ([id number]) 10/26/2022(Deferred: Patient Refused) Pneumococcal Polysaccharide PPV23 (Pneumovax) [...] Sign Reading Time Taken Comments Blood Pressure 117/77 09/13/2023 1:19 PM EDT Pulse 110 09/13/2023 1:19 PM EDT Temperature 36.8 C (98.2 F) 09/13/2023 1:19 PM ED T Respiratory Rate 18 09/13/2023 1:19 PM EDT Oxygen Saturation 95% 09/13/2023 1:19 PM EDT Inhaled Oxygen Concentration - - Weight 116.3 kg (256 lb 6.4 oz) 09/13/2023 1:19 PM EDT Height - - Body Mass Index 32.05 05/31/2023 10:31 AM EST documented in this encounter Nursing Notes * Elham Mcdowell, RN - 09/13/2023 3:23 PM EDT Chair 10. Port accessed. Patient says he is overall feeling well today. Patient did call in earlier and spoke with Anabell Marroquin LPN -- see note for details from this morning. Labs are okay for tx and reviewed with Dr. Torrez. Urine sample was done today with other labs for tx. Patient says his pain is fine right now and he does not have pain at this time. He says he has not been taking his morphine, still taking Oxycodone PRN. Pt c/o BLE swelling -- RN assessed. +1 pitting edema present on both lower legs. Patient states his feet are also swollen but overall they are much less swollen compared to yesterday. Girlfriend is also present today with patient and says "his legs look so swollen yesterday, it looked they his skin was going to pop." Patient also mentioned that he has been going back and forth with having diarrhea and constipation and also has been noticingblood in stool -- happens after he has been constipated and happens when he has diarrhea. Patient says there is usually a fair amount of blood in his stool and says at times there are blood clots. Dr. Torrez made aware of the above noted. Okay to proceed with tx. Patient was educated about reducing salt intake, increasing protein in his diet, keeping legs elevated when they are swollen. RN also educated patient to check BP at home since he says he has not taken BP meds at home for the last week and he is getting it from the [facility] this week. BP was 117/77 -- RNtold patient he should not/does not need to take BP meds with normal BP like this and this can cause his BP to become too low. Patient communicated understanding. Patient also says he did not start taking his Lactulose yet because he did not want diarrhea when he was coming he today -- says he willstart taking this later today when he gets home, aware it will increase BMs, will help ammonia level come down. Chemotherapy/Immunotherapy agents: TYRONE Consent for chemotherapy drug treatment complete, dated, and signed? yes, date - 07/18/2023 Treatment lab parameters met? Yes Has treatment weight changed > than 10%? No Treatment preauthorized? Yes VITALS Filed Vitals: 09/13/23 1319 BP: 117/77 Pulse: 110 Resp: 18 Temp: 36.8 C (98.2 F) TempSrc: Tympanic SpO2: 95% Weight: 116.3 kg (256 lb 6.4 oz) Urine protein: POSITIVE, 30 -- not needed for tx, ordered by Dr. Torrez to check today Patient education completed for treatment? Yes Blood transfusion consent signed and complete? NA Return appointment scheduled? Yes Patient had provider visit today? No - If no provider visit must complete Pretreatment Assessment Functional Status: Functional status at today's visit: Restricted in physically strenuous activity but ambulatory and able to carry out work on a light orsedentary nature, e.g. light house work, office work The drug name, dose, infusion volume, rate and route of administration, expiration date and time, appearance and physical integrity of the drug and rate set on the pump and sequencing of drug administration (as applicable) were verified by me and second sign-in RN. Patient was assessed for symptoms or adverse side effects during treatment. PRE-TREATMENT ASSESSMENT: NEURO: fatigue: ongoing , better this week however CV/RESP: peripheral edema: see above, BLE edema, improved from yesterday GI/: diarrhea: see above, back and forth, constipation: see above, back and forth, and OTHER: blood in stool, clots in stool at times, hgb stable, see above, Dr. Torrez aware OTHER: denies any additional symptoms PAIN: 0 -- none at this time Safety and Risk for Injury Patient will remain free from injury. Ensure appropriate safety devices are available. Provide and maintain safe environment. Goals: Patient will remain free from injury. Possible barriers to meeting goals: ambulating with IV pole Stability of the patient: Moderately stable - low risk of patient condition declining or worsening Summary regarding today's goals: Met: pt remained free of harm today Patient tolerated treatment well without any acute issues or problems. Patient left facility in stable condition and denied any further needs. documented in this encounter Plan of Treatment Upcoming Encounters Date Type Department Care Team (Late st Contact Info) Description 09/18/2023 1:45 PM EDT Imaging Radiology [address] [place] [address] 09/27/2023 12:50 PM EDT Laboratory Laboratory [facility] [address] [place] [phone] Neisha, Lab [address] [place] [address] 09/27/2023 2:00 PM EDT Hem/Onc Treatment [facility]ematology/[facility]cology [facility], [place] [facility] [phone] Neisha, Chair 1 Hem Onc [address] [place] [address] 10/04/2023 1:00 PM EDT Laboratory Laboratory [facility] [place] [address] [place] [phone] Neisha, Lab [address] [place] [address] 10/04/2023 2:00 PM EDT Hem/Onc Treatment Hematology[facility]cology [facility], [place] [facility] [phone] Neisha, Chair 10 Hem Onc [place] 200 [facility] [place] [address] 10/04/2023 2:00 PM EDT Office Visit Palliative Medicine [facility] [phone] Shante Prado MD [address] [place] [address] [place] [address] 10/10/2023 12:45 PM EDT Imaging Radiology [address] 132 [facility] [place] [address] 10/19/2023 10:30 AM EDT Laboratory Laboratory [facility] [address] [place] [phone] Neisha, Lab [facility] [address] [place] [address] 10/19/2023 11:00 AM EDT Office Visit Hematology/Oncology [facility] [place] [address] [place] [phone] Rachel Marina CRNP 400 [facility] [place] [address] 10/19/2023 11:30 AM EDT Hem/Onc Treatment Hematology/Oncology Treatment, [place] [facility] [phone] Neisha, Chair 11 Hem Onc [facility] 200 [facility] [place] [address] 10/26/2023 12:50 PM EDT Laboratory Laboratory [facility] [place] [address] [place] [phone] Neisha, Lab [facility] 200 [facility] [place] [address] 10/26/2023 2:00 PM EDT Hem/Onc Treatment Hematology/[address]cology [address] [phone] Neisha, Chair 9 Hem Onc [facility] 200 [facility] [place] [address] 11/15/2023 11:30 AM EDT Office Visit Urology, [facility] 132 [facility] [place] [address] Adolfo Key MD [facility] [address] [place] [address] Scheduled Procedures Name [...] this encounter Medical Devices Implanted Type Area Vender Device Identifier Shelf Expiration Date Model / Serial / Lot Port Implant W/8f Poly Cath - [id number] Implanted:Qty : 1 on 12/01/2022 by Brad Cerda DO at OR [facility] Right: Chest CR BARD : PERIPHERAL VASCULAR [id number] 02/24/2024 [id number] / / [id number] System Urolift - [id number] Implanted:Qty : 6 on 05/31/2023 by Adolfo Key MD at OR [facility] [employer] 09/01/2023 [id number] / / [id number] Description:prostate documented as of this encounter Visit Diagnoses Diagnosis Adenocarcinoma of pancreas (HCC)- Primary Malignant neoplasm of pancreas, part unspecified Encounter for antineoplastic chemotherapy Metastasis to liver (HCC) Secondary malignant neoplasm of liver documented in this encounter Administered Medications Active Administered Medications - up to 3 most recent administrations Medication Order MAR Action Action Date Dose Rate Site diphenhydrAMINE (Benadryl) inj 50 mg 50 mg, IV Push, ONCE PRN Other, Hypersensitivity Reaction, Starting on Mon09/13/23 at 1354, Until Radha 09/14/23 at 1353, For 24 hours EPINEPHrine 1 MG/ML inj 0.3 mg 0.3 mg, Intramuscular, ONCE PRN Other, Hypersensitivity Reaction or Anaphylaxis, Starting on Mon09/13/23 at 1354, Until Radha 09/14/23 at 1353, For 24 hours hEParin 100 UNIT/ML Lock Flush inj 500 Units 500 Units (5 mL), IV Lock, PRN Other, IV Flush, Starting on Mon09/13/23 at 1354, Until Radha 09/14/23 at 1353, For 24 hours, Do not flush if lock, PICC, or central line not in place; IV infusing or unable to flush. Given 09/13/2023 3:00 PM EDT 500 Units Hydrocortisone Sod Suc (PF) (Solu-Cortef) inj 100 mg 100 mg, IV Push, ONCE PRN Other, Hypersensitivity Reaction, Starting on Mon09/13/23 at 1354, Until Radha 09/14/23 at 1353, For 24 hours LORAzepam (Ativan) tab 0.5 mg 0.5 mg, Oral, ONCE PRN Anxiety, Nausea, Starting on Mon09/13/23 at 1500, Until Discontinued NSS infusion Intravenous, at 50 mL/hr, PRN, Starting on Mon09/13/23 at 1500, Until Discontinued, Maintenance line Start Infusion 09/13/2023 1:50 PM EDT 50 mL/hr oxygen GAS Inhalation, OXYGEN, First dose on Mon09/13/23 at 1600, Until Discontinued, Device/Managed by: Low Flow Device, Goal SPO2 (%): 91-95, Starting Device: Nasal Cannula, Initial Flow Rate (LPM): 2, Lowest Support: Nasal Cannula: Flow 0-6 LPM. Titrate up/down by 1 LPM., Higher Support: Non-Rebreather (NRB) Mask: Minimum of 10 LPM. Titrate to maintain bag inflation., Titration Interval: Q2 minutes and as needed., Notify Provider: For sudden DECREASE in resting SPO2 to less than 85% and when escalating delivery device., Wean patient off Oxygen when the oxygen saturation is greater than or equal to 93% sodium chloride 0.9 % flush central line 10 mL 10 mL, IV Push, PRN Other, IV Flush, Starting on Mon09/13/23 at 1354, Until Radha 09/14/23 at 1353, For 24 hours, Do not flush if lock, PICC, or central line not in place; IV infusing or unable to flush. Given 09/13/2023 2:59 PM EDT 10 mL Inactive Administered Medications - up to 3 most recent administrations Medication Order MAR Action Action Date Dose Rate Site gemcitabine (Gemzar) 2,600 mg in NSS 250 mL infusion 2,600 mg (rounded from 2,500 mg = 1,000 mg/m2 2.5 m2 Treatment Plan BSA from Recorded weight), IV Piggyback, ONCE, 1 dose, On Mon09/13/23 at 1530, Administer over 30 Minutes Start Infusion 09/13/2023 2:22 PM EDT 2,600 mg 500 mL/hr ondansetron (Zofran) tab 8 mg 8 mg, Oral, ONCE, On Mon09/13/23 at 1415, For 1 dose, Give 30 minutes prior to chemotherapy. 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
--- OUTSIDE RECORDS SUMMARY | 2023-09-20 05:40 | External Medical Summary | Summary of Care ---
Author Name Unknown Organization [facility] Address [address] [place] [address] Phone [phone] Care Team Providers Care Block Operator Name Role Phone aRy Royal MD Primary Care Provider [phone] Reason for Visit * Reason Comments Chemotherapy Gemzar. * Evaluate & Treat - Unlimited Visits (Within 30 days (routine)) - Authorized Specialty Diagnoses / Procedures Referred By Mike velázquez Referred To Contact Hematology Oncology Diagnoses Gallbladder cancer (HCC) Procedures Eval/Treat Anabell Driver PA-C [address] [place] [address] Referral ID Status Reason Start Date Expiration Date Visits Requested Visits Authorized [id number] Authorized Specialty Services Required 12/01/2022 12/06/[phone] Encounter Details Date Type Department Care Team (Latest Contact Info) Description 08/08/2023 11:30 AM EST Hem/Onc Treatment Hematology/Oncolog y Treatment, [address] [phone] Neisha, Chair 5 Hem On[address] [place] [address] Adenocarcinoma of pancreas (HCC)*; Encounter for antineoplastic [...] mRNA, LNP-s, No Pre serve, 2-Dose Series ([employer]) 02/23/2021,02/02/2021 HEP A - Hepatitis A (Adult > 18 yrs) 09/21/2020, 02/10/2020 Hepatitis B, 20+ yrs 09/21/2020,03/23/2020,02/09 Pneumococcal Conjugate Vacci ne, 20-valent ([id number]) 10/26/2022(Deferred: Patient Refused) Pneumococcal Polysaccharide PPV23 (Pneumovax) [...] Upcoming Encounters Date Type Department Care Team (Latest Contact Info) Description 09/13/2023 1:00 PM EDT Laboratory Laboratory [facility] [address] [place] [phone] Patricio Driver [address] 200 [facility] [place] [address] Adenocarcinoma of pancreas (HCC); Metastasis to liver (HCC); Hepatic encephalopathy (HCC) 09/13/2023 2:00 PM EDT Hem/Onc Treatment Hematology/Oncolog y Treatment, [place] [address] [place] [phone] Neisha, Chair 6 Hem Onc [address] [place] [address] Arrived 09/18/2023 1:45 PM EDT Imaging Radiology [address] [place] [address] 09/27/2023 12:50 PM EDT Laboratory Laboratory [place] [address] [place], [place] [phone] Neisha, Lab [address] [place], [place] [address] 09/27/2023 2:00 PM EDT Hem/Onc Treatment Hematology/Oncolog y Treatment, [place] 200 [facility], [place] [phone] Neisha, Chair 1 Hem Onc [place] [address] [place], [place] [address] 10/04/2023 1:00 PM EDT Laboratory Laboratory [facility] [place] [address] [place], [place] [phone] Neisha, Lab [place] [facility] [place], [place] [address] 10/04/2023 2:00 PM EDT Hem/Onc Treatment Hematology/Oncolog y Treatment, [place] 200 [facility], [place] [phone] Neisha, Chair 10 Hem Onc [place] [address] [place], [place] [address] 10/04/2023 2:00 PM EDT Office Visit Palliative Medicine [facility] 200 [facility], [place] [phone] Shante Prado MD [address] [place] [address] [place] [address] 10/10/2023 12:45 PM EDT Imaging Radiology [facility], [place] 132 [facility] [place] [address] 10/19/2023 10:30 AM EDT Laboratory Laboratory [facility] [address] [place] [phone] Neisha, Lab [address] [place] [facility] [place] [address] 10/19/2023 11:00 AM EDT Office Visit Hematology/Oncolog y Scenery [facility] [address] [place], [place] [phone] Rachel Marina, NOELLE 400 [facility] [place] [id number] 10/19/2023 11:30 AM EDT Hem/Onc Treatment Hematology/Oncolog y Treatment, [place] 200 [facility], [place] [phone] Neisha, Chair 11 Hem Onc [place] [address] [place] [address] 10/26/2023 12:50 PM EDT Laboratory Laboratory [facility] [address] [place] [phone] Neisha, Lab [facility] 200 [facility] [place] [address] 10/26/2023 2:00 PM EDT Hem/Onc Treatment Hematology/Oncolog y Treatment, [place] 200 [facility], [place] [phone] Neisha, Chair 9 Hem Onc [place] [address] [place] [address] 11/15/2023 11:30 AM EDT Office Visit Urology, [facility] 132 [facility] [place] [address] Adolfo Key MD [address] [facility] [address] [place] [id number] Scheduled Procedures Name Priority Associated Diagnoses Date/Ti me COLONOSCOPY FLEXIBLE PROXIMAL DIAGNOSTIC Recall History of colon polyps Health Maintenance Due Date Last Done Comments HIV Screening 1975 Depression Screening 09/29/2020 09/30/2019 COVID-19 Vaccine (3 - Pfizer risk series) 03/23/2021 02/23/2021, 02/02/2021 Pneumococcal Vaccine: Pediatrics (0 to 5 Years) and At-Risk Patients (6 to 64 Years) (2 of 2 - PCV) 05/10/2022 05/10/2021 GFR 09/05/2024 09/06/2023, 01/2024, 08/22/2023, Additional history exists Albumin/Creatinine Ratio 09/14/2025 023, 09/07/2021, 10/22/2018 Diabetes Screening 09/05/2026 09/06/2023, 0 09/01/2023, 08/22/2023, Additional history exists Lipid Panel 11/25/2027 11/24/2022, [...] this encounter Medical Devices Implanted Type Area Emergency Room Tech Device Identifier Shelf Expiration Date Model / Serial / Lot Port Implant W/8f Poly Cath - [id number] Implanted:Qty : 1 on 12/01/2022 by Brad Cerda, at OR [facility] Right: Chest CR BARD : PERIPHERAL VASCULAR [id number] 02/24/2024 [id number] / / [id number] System Urolift - [id number] Implanted:Qty : 6 on 05/31/2023 by Adolfo Key MD at OR [facility] [employer] 09/01/2023 [id number] / / [id number] Description:prostate documented as of this encounter Visit Diagnoses Diagnosis Adenocarcinoma of pancreas (HCC)- Primary Malignant neoplasm of pancreas, part unspecified Encounter for antineoplastic chemotherapy Metastasis to liver (HCC) Secondary malignant neoplasm of liver Adenocarcinoma of pancreas (HCC) Malignant neoplasm of pancreas, part unspecified Metastasis to liver (HCC) Secondary malignant neoplasm of liver Hepatic encephalopathy (HCC) Hepatic encephalopathy documented in this encounter Administered Medications Inactive [...] Flush, Starting on Mon08/08/23 at 1052, Until 2/13/24 at 1609, For 24 hours, Do not flush if lock, PICC, or central line not in place; IV infusing or unable to flush. Given 08/08/2023 12:04 PM EST 10 mL documented in this encounter Advance Directives Documents on File Type Date Recorded Patient Access Nurse Expl anation POLST 07/13/2023 4:08 PM POLST [...] Discussed due to patient's condition Care Teams Block Operator Relationship Specialty Start Date End Date Ray Royal MD [address] [place] [address] [place] [phone] PCP - General Family Medicine 10/22/18 documented as of this encounter
--- OUTSIDE RECORDS SUMMARY | 2023-09-20 05:40 | External Medical Summary | Summary of Care ---
Author Name Unknown Organization [facility] Address [address] [place] [address] Phone [phone] Care Team Providers Care Auction Assistant Name Role Phone Ray Royal MD Primary Care Provider + [phone] Reason for Visit * Reason Comments Outpatient Testing Encounter Details Date Type Department Care Team (Late st Contact Info) Description 09/13/2023 1:00 PM EDT Laboratory Laboratory [facility] [address] [place] [address] [facility] [address] [place] [address] Adenocarcinoma of pancreas (HCC); Metastasis to liver (HCC); Hepatic encephalopathy (HCC) Allergies No known active allergiesdocumented as [...] mRNA, LNP-s, No Pre serve, 2-Dose Series ([place]ibki) 02/23/2021,02/02/2021 HEP A - Hepatitis A (Adult > 18 yrs) 09/21/2020, 02/10/2020 Hepatitis B, 20+ yrs 09/21/2020,03/23/2020,02/09 Pneumococcal Conjugate Vacci ne, 20-valent ([id number]) 10/26/2022(Deferred: Patient Refused) Pneumococcal Polysaccharide PPV23 (Pneumovax) [...] on file documented as of this encounter Plan of Treatment Upcoming Encounters Date Type Department Care Team (Late st Contact Info) Description 09/13/2023 2:00 PM EDT Hem/Onc Treatment Hematology/Oncology [address], [address] [phone] Neisha, Chair 6 Hem Onc [place] [address] [place] [address] [address] Arrived 09/18/2023 1:45 PM EDT Imaging Radiology [address] [place] [address] 09/27/2023 12:50 PM EDT Laboratory Laboratory [facility] Neisha [place] [facility] Mary Jo [place] [phone] Neisha, Lab [place] [address] Mary [address] [facility] [place] [address] 09/27/2023 2:00 PM EDT Hem/Onc Treatment Hematology/Oncology Treatment, [place] 200 [facility] [place] [phone] Neisha, Chair 1 Hem Onc [place] [address] [place] [address] 10/04/2023 1:00 PM EDT Laboratory Laboratory [facility] [place] [address] [place], [place] [phone] Neisha, Lab [address] [facility] [place], [place] [address] 10/04/2023 2:00 PM EDT Hem/Onc Treatment Hematology/Oncology Treatment, [place] 200 [facility], [place] [phone] Neisha, Chair 10 Hem Onc [address] [place] [address] 10/04/2023 2:00 PM EDT Office Visit Palliative Medicine [facility] [place] 200 [facility] [place] [phone] Shante Prado MD [address] [place] [address] 10/10/2023 12:45 PM EDT Imaging Radiology [address], [place] 132 [facility] [place] [address] 10/19/2023 10:30 AM EDT Laboratory Laboratory [facility] [place] [address] [place] [phone] Neisha, Lab [address] [place] [facility] [place] [address] 10/19/2023 11:00 AM EDT Office Visit Hematology/Oncology [facility] [place] [address] [place] [phone] Rachel Marina CRNP [address] [place] [phone] 10/19/2023 11:30 AM EDT Hem/Onc Treatment Hematology/Oncology Treatment, [place] 200 [facility] [phone] Neisha, Chair 11 Hem Onc [address] [place] [address] 10/26/2023 12:50 PM EDT Laboratory Laboratory [address] Neisha [place] [address] [place] [phone] Neisha, Lab [address] [facility] [place] [address] 10/26/2023 2:00 PM EDT Hem/Onc Treatment Hematology/Oncology Treatment, [place] [address] [place] [phone] Neisha, Chair 9 Hem Onc [address] [place] [address] 11/15/2023 11:30 AM EDT Office Visit Urology, [facility] 132 [facility] [place] [address] Adolfo Key MD [address] [place] [address] [place] [address] Pending Results Name Type Priority Associated Diagnoses Date /Time CBC WITH WBC DIFFERENTIAL Lab STAT Adenocarcinoma of pancreas (HCC) Metastasis to liver (HCC) 09/13/2023 11:59 AM EDT COMPREHENSIVE METABOLIC PANEL Lab STAT Adenocarcinoma of pancreas (HCC) Metastasis to liver (HCC) 09/13/2023 11:59 AM EDT AMMONIA Lab Routine Adenocarcinoma of pancreas (HCC) Metastasis to liver (HCC) Hepatic encephalopathy (HCC) 09/13/2023 11:59 AM EDT URINALYSIS, REFLEX TO MICROSCOPIC Lab Routine Adenocarcinoma of pancreas (HCC) 09/13/2023 11:59 AM EDT PROTEIN/ CREATININE RATIO, URINE Lab Routine Adenocarcinoma of pancreas (HCC) 09/13/2023 11:59 AM EDT CBC Lab STAT Adenocarcinoma of pancreas (HCC) Metastasis to liver (HCC) 09/13/2023 11:59 AM EDT DIFFERENTIAL, AUTOMATED Lab STAT Adenocarcinoma of pancreas (HCC) Metastasis to liver (HCC) 09/13/2023 11:59 AM EDT DIFFERENTIAL, TECHNOLOGIST REVIEW Lab Routine Adenocarcinoma of pancreas (HCC) Metastasis to liver (HCC) 09/13/2023 11:59 AM EDT Scheduled Procedures Name Priority Associated Diagnoses Date/Ti [...] this encounter Medical Devices Implanted Type Area Test Man Device Identifier Shelf Expiration Date Model / Serial / Lot Port Implant W/8f Poly Cath - [id number] Implanted:Qty : 1 on 12/01/2022 by Brad Cerda DO at OR [facility] Right: Chest CR BARD : PERIPHERAL VASCULAR [id number] 02/24/2024 [id number] / / [id number] System Urolift - [id number] Implanted:Qty : 6 on 05/31/2023 by Adolfo Key MD at OR [facility] [employer] 09/01/2023 [id number] / / [id number] Description:prostate documented as of this encounter Visit Diagnoses Diagnosis Adenocarcinoma of pancreas (HCC) Malignant neoplasm of pancreas, part unspecified Metastasis to liver (HCC) Secondary malignant neoplasm of liver Hepatic encephalopathy (HCC) Hepatic encephalopathy documented in this encounter Advance Directives Documents on File Type Date Recorded Patient Telemedicine Physician Expl anation POLST 07/13/2023 4:08 PM POLST [...] Discussed due to patient's condition Care Teams Auction Assistant Relationship Specialty Start Date End Date Ray Royal MD [address] [place] [address] [place]h [phone] PCP - General Family Medicine 10/22/18 documented as of this encounter
--- OUTSIDE RECORDS SUMMARY | 2023-09-20 05:40 | External Medical Summary | Summary of Care ---
Author Name Unknown Organization [facility] Address [address] [place] [address] Phone [phone] Care Team Providers Care Quiller Runner Name Role Phone Ray Royal MD Primary Care Provider + [phone] Reason for Visit * Reason Comments IV Therapy Hydration * Episode Based Medications (Routine) - Authorized Specialty Diagnoses / Procedures Referred By Contac t Referred To Contact Diagnoses Adenocarcinoma of pancreas (HCC) Encounter for antineoplastic chemotherapy Metastasis to liver (HCC) Procedures OR IN GEMCITABINE HCL NOS 200MG Teto Torrez MD [address] [place] [address] [place] [address] Anc Hem/Onc [address] [address] Referral ID Status Reason Start Date Expiration Date V isits Requested Visits Authorized [id number] Authorized 12/01/2022 12/06/2023 999 [id number] Encounter Details Date Type Department Care Team (Latest Contact Info) Description 08/09/2023 9:00 AM EST Hem/Onc Treatment Hematology/Oncology Treatment, [address] [phone] Neisha, Chair 9 Hem Onc [address] [place] [address] Dehydration*; Adenocarcinoma of pancreas (HCC); Metastasis to liver (HCC) Allergies No known [...] 2 07/18/2023 Active Senna 8.6 MG Oral TabletIndications:C onstipation due to pain medication Take 2 Tablets by mouth at bedtime. 60 Tablet 0 08/09/2023 Active Polyethylene Glycol 3350 17 GM/SCOOP Oral Powder (MiraLax)Indication s:Constipation due to pain medication Take 17 g by mouth in the morning. 255 g 0 08/09/2023 Active oxyCODONE HCl 10 MG Oral Tablet (Roxicodone)Indicat ions:Cancer related pain Take 1 Tablet by mouth every 4 hours as needed for Pain, Severe. 60 Tablet 0 08/08/2023 Discontinue d(Refill) documented as of this encounter [...] mRNA, LNP-s, No Pre serve, 2-Dose Series (Netcipia) 02/23/2021,02/02/2021 HEP A - Hepatitis A (Adult > 18 yrs) 09/21/2020, 02/10/2020 Hepatitis B, 20+ yrs 09/21/2020,03/23/2020,02/09 Pneumococcal Conjugate Vacci ne, 20-valent ([id number]) 10/26/2022(Deferred: Patient Refused) Pneumococcal Polysaccharide PPV23 (Pneumovax) [...] Sign Reading Time Taken Comments Blood Pressure 105/68 08/09/2023 10:11 AM EST Pulse 80 08/09/2023 10:11 AM EST Temperature - - Respiratory Rate - - Oxygen Saturation - - Inhaled Oxygen Concentration - - Weight - - Height - - Body Mass Index - - documented in this encounter Nursing Notes * Benson Cisneros RN - 08/09/2023 10:50 AM EST Pt tolerated infusion well. BP re-check after infusion is 105/68. Reviewed with Dr. Torrez, ok to discharge patient. Patient denies any symptoms, was feeling better. Port access removed without issue and flushed with NSS/Heparin per protocol. Pt ambulated from treatment room in stable condition. Goals: Patient will remain free from injury. Possible barriers to meeting goals: IV line, hypotension Stability of the patient: Moderately stable - low risk of patient condition declining or worsening Summary regarding today's goals: Met: Patient remained free from injury. * Benson Cisneros RN - 08/09/2023 9:32 AM EST Pt arrived to office stating he was feeling dizzy. BP hypotensive (see flowsheets). Spoke with kevin Salazar to give 1L NSS hydration. Chair 1. Port accessed with positive blood return. Pt NSS started to infuse over 1 hour per order. Pt deniesany issues at this time. Safety and Risk for Injury Patient will remain free from injury. Ensure appropriate safety devices are available. Provide and maintain safe environment. documented in this encounter Plan of Treatment Upcoming Encounters Date Type Department Care Team (Late st Contact Info) Description 09/18/2023 1:45 PM EDT Imaging Radiology [address] [place] [address] 09/27/2023 12:50 PM EDT Laboratory Laboratory [facility] [place] [address] [place] [phone] [place], Lab [address]en[address] [place] [address] 09/27/2023 2:00 PM EDT Hem/Onc Treatment Hematology/Oncology Treatment, [place] [address] [place] [phone] Neisha, Chair 1 Hem Onc [place] [place] [address] 10/04/2023 1:00 PM EDT Laboratory Laboratory [facility] [place] [address] [place] [phone] [place], Lab [address] [place] [address] 10/04/2023 2:00 PM EDT Hem/Onc Treatment Hematology/Oncology Treatment, [place] 200 [facility], [place] [phone] Neisha, Chair 10 Hem Onc [facility] [address] [place] [address] 10/04/2023 2:00 PM EDT Office Visit Palliative Medicine [facility] [place] 200 [facility], [place] [phone] Shante Prado MD [address] [place] [address] 10/10/2023 12:45 PM EDT Imaging Radiology [address], [place] 132 [facility] [place] [address] 10/19/2023 10:30 AM EDT Laboratory Laboratory [facility] [address] [place] [phone] Neisha, Lab [facility] 200 [address] [place] [facility] [place] [address] 10/19/2023 11:00 AM EDT Office Visit Hematology/Oncology [facility] [place] [address] [place] [phone] Rachel Marina CRNP [address] [address] 10/19/2023 11:30 AM EDT Hem/Onc Treatment Hematology/Oncology Treatment, [place] 200 [facility], [place] [phone] Neisha, Chair 11 Hem Onc [address] [place] [address] 10/26/2023 12:50 PM EDT Laboratory Laboratory [facility] [place] [address] [place] [place] [phone] Neisha, Lab [address] [place] [address] 10/26/2023 2:00 PM EDT Hem/Onc Treatment Hematology/Oncology Treatment, [place] [address] [place], [place] [phone] Neisha, Chair 9 Hem Onc [address] [place], [place] [address] 11/15/2023 11:30 AM EDT Office Visit Urology, [facility] [address] [place] [address] Adolfo Key MD [address] [place] [address] Scheduled Procedures Name Priority Associated Diagnoses Date/Ti [...] this encounter Medical Devices Implanted Type Area Sexual Assault Social Worker Device Identifier Shelf Expiration Date Model / Serial / Lot Port Implant W/8f Poly Cath - [id number] Implanted:Qty : 1 on 12/01/2022 by Brad Cerda DO at OR [facility] Right: Chest CR BARD : PERIPHERAL VASCULAR [id number] 02/24/2024 [id number] / / [id number] System Urolift - [id number] Implanted:Qty : 6 on 05/31/2023 by Adolfo Key MD at OR [facility] [employer] 09/01/2023 [id number] / / [id number] Description:prostate documented as of this encounter Visit Diagnoses Diagnosis Dehydration- Primary Adenocarcinoma of pancreas (HCC) Malignant neoplasm of pancreas, part unspecified Metastasis to liver (HCC) Secondary malignant neoplasm of liver documented in this encounter Administered Medications Inactive Administered Medications - up to 3 most recent administrations Medication Order MAR Action Action Date Dose Rate Site hEParin 100 UNIT/ML Lock Flush inj 500 Units 500 Units (5 mL), IV Lock, PRN Other, IV Flush, Starting on Mon08/09/23 at 0929, Until Mon08/09/23 at 1806, For 24 hours, Do not flush if lock, PICC, or central line not in place; IV infusing or unable to flush. Given 08/09/2023 10:12 AM EST 500 Units NSS infusion FOR HYDRATION Intravenous, at 1,000 mL/hr Administer over 1 Hours, ONCE, 1 dose, On Mon08/09/23 at 1030 Start Infusion 08/09/2023 9:12 AM EST 1,000 mL 1000 mL/hr sodium chloride 0.9 % flush central line 10 mL 10 mL, IV Push, PRN Other, IV Flush, Starting on Mon08/09/23 at 0929, Until Mon08/09/23 at 1806, For 24 hours, Do not flush if lock, PICC, or central line not in place; IV infusing or unable to flush. Given 08/09/2023 10:12 AM EST 10 mL Given 08/09/2023 9:10 AM EST 10 mL documented in this encounter Advance Directives Documents on File Type Date Recorded Patient Real Estate Legal Assistant Expl anation POLST 07/13/2023 4:08 PM POLST [...] Discussed due to patient's condition Care Teams Quiller Runner Relationship Specialty Start Date End Date Ray Royal MD [address] [place] [address] [place] Saleh [phone] PCP - General Family Medicine 10/22/18 documented as of this encounter
--- OUTSIDE RECORDS SUMMARY | 2023-09-20 05:41 | External Medical Summary ---
Author Name Unknown Address Unknown Organization [facility] [address] [place] [address] Laboratory Report Ordering Provider Test Date Status TJ SMITH 09/13/2023 11:59:11 Final Observation Date Value Abnormality Reference (Units ) Status SYNC LEUKOCYTES IN BLOOD BY AUTOMATED COUNT 09/13/2023 11:59:11 7.54 4.00-10.80 (K/uL) Final Neutrophils/100 leukocytes in Blood by Manual count 09/13/2023 11:59:11 78.0 Above high normal 40.0-75.0 (%) Final Lymphocytes/100 leukocytes in Blood by Manual count 09/13/2023 11:59:11 11.0 Below low normal 18.0-42.0 (%) Final Monocytes/100 leukocytes in Blood by Manual count 09/13/2023 11:59:11 9.0 1.0-11.0 (%) Final Eosinophils/100 leukocytes in Blood by Manual count 09/13/2023 11:59:11 2.0 0.0-6.0 (%) Final Neutrophils [#/volume] in Blood by Manual count 09/13/2023 11:59:11 5.88 1.80-7.70 (K/uL) Final Lymphocytes [#/volume] in Blood by Manual count 09/13/2023 11:59:11 0.83 Below low normal 1.00-4.80 (K/uL) Final Monocytes [#/volume] in Blood by Manual count 09/13/2023 11:59:11 0.68 0.00-1.10 (K/uL) Final Eosinophils [#/volume] in Blood by Manual count 09/13/2023 11:59:11 0.15 0.00-0.70 (K/uL) Final Nucleated erythrocytes/100 leukocytes [Ratio] in Blood by Automated count 09/13/2023 11:59:11 1 Above high normal <=0 (/100 WBCs) Final Performing Location [facility] [place] [address]
--- OUTSIDE RECORDS SUMMARY | 2023-09-20 05:41 | External Medical Summary ---
Author Name Unknown Address Unknown Organization [facility] [place] [address] Laboratory Report Ordering Provider Test Date Status TJ SMITH 09/13/2023 11:59:11 Final Observation Date Value Abnormality Reference (Units ) Status WBC, Total 09/13/2023 11:59:11 7.54 4.00-10.8 0 (K/uL) Final RBC 09/13/2023 11:59:11 3.20 4.50-5.25 (M/uL) Final Hemoglobin 09/13/2023 11:59:11 10.1 Below low normal 14 .0-16.8 (g/dL) Final HCT 09/13/2023 11:59:11 32.2 Below low normal 40. 0-48.4 (%) Final MCV 09/13/2023 11:59:11 100.6 82.0-99.5 (fL) Final MCH 09/13/2023 11:59:11 31.6 27.0-34.0 (pg) Final MCHC 09/13/2023 11:59:11 31.4 32.0-36.0 (g/dL) Final RDW 09/13/2023 11:59:11 20.7 11.5-15.5 (%) Final Platelets 09/13/2023 11:59:11 128 Below low normal 140 -400 (K/uL) Final MPV 09/13/2023 11:59:11 10.4 6.6-11.1 ( fL) Final Performing Location [facility] [place] [address]
--- OUTSIDE RECORDS SUMMARY | 2023-09-20 05:41 | External Medical Summary ---
Author Name Unknown Address Unknown Organization [facility] [address] [place] [place] [address] Laboratory Report Ordering Provider Test Date Status TJ SMITH 09/13/2023 11:59:11 Final Observation Date Value Abnormality Reference (Units ) Status BUN 09/13/2023 11:59:11 18 6-20 (mg/dL) Final Creatinine 09/13/2023 11:59:11 0.9 0.6-1.2 (mg/dL) Final Glomerular filtration rate/1.73 sq M.predicted [Volume Rate/Area] in Serum, Plasma or Blood by Creatinine-based formula (CKD-EPI) 09/13/2023 11:59:11 >90 >=60 (mL/min) Final eGFR is calculated based on the CKD-EPI 2020 equation SODIUM 09/13/2023 11:59:11 137 135-146 (m mol/L) Final Potassium 09/13/2023 11:59:11 4.0 3.5-5.1 (m mol/L) Final Cl 09/13/2023 11:59:11 104 98-107 (mm ol/L) Final CO2 09/13/2023 11:59:11 21 Below low normal 22- 32 (mmol/L) Final Anion gap 09/13/2023 11:59:11 12 7-15 (mmol /L) Final Glucose 09/13/2023 11:59:11 241 Above high normal 70 -120 (mg/dL) Final Albumin 09/13/2023 11:59:11 2.7 Below low normal 3.8 -5.0 (g/dL) Final AST (Aspartate aminotransferase) 09/13/2023 11:59:11 70 Above high normal 10-50 (U/L) Final Alk Phos 09/13/2023 11:59:11 241 Above high normal 35 -130 (U/L) Final Bilirubin, Total 09/13/2023 11:59:11 1.0 <=1 .2 (mg/dL) Final Calcium 09/13/2023 11:59:11 8.6 8.4-10.2 ( mg/dL) Final Protein 09/13/2023 11:59:11 5.5 Below low normal 6.0 -8.3 (g/dL) Final ALT (Alanine aminotransferase) 09/13/2023 11:59:11 32 10-50 (U/L) [place]ari[place] harris Performing Location [facility] [address] [place] [address]
--- OUTSIDE RECORDS SUMMARY | 2023-09-20 05:41 | External Medical Summary | Summary of Care ---
Author Name Unknown Organization [facility] Address [address] [place] [address] Phone [phone] Care Team Providers Care Jet Piercer Operator Name Role Phone Ray Royal MD Primary Care Provider [phone] Encounter Details Date Type Department Care Team (Late st Contact Info) Description 09/13/2023 Orders Only Hematology/Oncology Tisha Driver [place] 200 [facility] [place] [phone] Teto Torrez MD 200 [facility] [address] Adenocarcinoma of pancreas (HCC)* Allergies No known active allergiesdocumented as of [...] mRNA, LNP-s, No Pre serve, 2-Dose Series (Incujector) 02/23/2021,02/02/2021 HEP A - Hepatitis A (Adult > 18 yrs) 09/21/2020, 02/10/2020 Hepatitis B, 20+ yrs 09/21/2020,03/23/2020,02/09 Pneumococcal Conjugate Vacci ne, 20-valent ([id number]) 10/26/2022(Deferred: Patient Refused) Pneumococcal Polysaccharide PPV23 (Pneumovax) [...] on file documented as of this encounter Progress Notes * Benson Cisneros, ROBERTO - 09/13/2023 11:[address] Torrez- would like UA/ PC Ratio completed with labs today. documented in this encounter Plan of Treatment Upcoming Encounters Date Type Department Care Team (Latest Contact Info) Description 09/13/2023 1:00 PM EDT Laboratory Laboratory [facility] [place] [address] [place] [phone] Neisha, Lab [facility] 200 [facility] [place] [address] Adenocarcinoma of pancreas (HCC); Metastasis to liver (HCC); Hepatic encephalopathy (HCC) 09/13/2023 2:00 PM EDT Hem/Onc Treatment Hematology/Oncolog y Treatment, [place] [address] [place] [phone] Neisha, Chair 6 Hem Onc Sc[address] [place] [address] Arrived 09/18/2023 1:45 PM EDT Imaging Radiology [address] [place] [address] 09/27/2023 12:50 PM EDT Laboratory Laboratory [facility] [address] [place], [place] [phone] Neisha, Lab [address] [place] [address] 09/27/2023 2:00 PM EDT Hem/Onc Treatment Hematology/Oncolog y Treatment, [place] 200 [facility], [place] [phone] Neisha, Chair 1 Hem Onc Scenery [address] [place] [address] 10/04/2023 1:00 PM EDT Laboratory Laboratory [facility] [place] [address] [place] [phone] Neisha, Lab Scenery [address] [facility] [place] [address] 10/04/2023 2:00 PM EDT Hem/Onc Treatment Hematology/Oncolog y Treatment, [place] 200 [facility], [place] [phone] Neisha, Chair 10 Hem Onc Scenery [address] [place], [place] [address] 10/04/2023 2:00 PM EDT Office Visit Palliative Medicine [facility] 200 [facility], [place] [phone] Shante Prado MD [address] [place] [address] [place] [address] 10/10/2023 12:45 PM EDT Imaging Radiology [address], [place] 132 [facility] [place] [address] 10/19/2023 10:30 AM EDT Laboratory Laboratory [facility] [place] [address] [place] [phone] Neisha, Lab Scenery [address] [place], [place] [address] 10/19/2023 11:00 AM EDT Office Visit Hematology/Oncolog y [facility] [place] [address] [place] [phone] Rachel Marina CRNP 400 [facility] [place] [id number] 10/19/2023 11:30 AM EDT Hem/Onc Treatment Hematology/Oncolog y Treatment, [place] 200 [facility], [place] [phone] Neisha, Chair 11 Hem Onc Scenery [address] [place] [address] 10/26/2023 12:50 PM EDT Laboratory Laboratory [facility] [place] [address] [place] [phone] Neisha, Lab [facility] 200 [facility] [place], [place] [address] 10/26/2023 2:00 PM EDT Hem/Onc Treatment Hematology/Oncolog y Treatment, [place] 200 [facility], [place] [phone] Neisha, Chair 9 Hem Onc Scenery [address] [place] [address] 11/15/2023 11:30 AM EDT Office Visit Urology, [facility] 132 [facility] [place] [address] Adolfo Key MD [address] [address] [place] [address] Pending Results Name Type Priority Associated Diagnoses Date /Time URINALYSIS, REFLEX TO MICROSCOPIC Lab Routine Adenocarcinoma of pancreas (HCC) 09/13/2023 11:59 AM EDT PROTEIN/ CREATININE RATIO, URINE Lab Routine Adenocarcinoma of pancreas (HCC) 09/13/2023 11:59 AM EDT Scheduled Orders Name Type Priority Associated Diagnoses Orde r Schedule URINALYSIS, REFLEX TO MICROSCOPIC Lab Routine Adenocarcinoma of pancreas (HCC) Expected: 09/13/2023, Expires: 09/12/2024 PROTEIN/ CREATININE RATIO, URINE Lab Routine Adenocarcinoma of pancreas (HCC) Expected: 09/13/2023, Expires: 09/12/2024 Scheduled Procedures Name Priority Associated Diagnoses Date/Ti [...] this encounter Medical Devices Implanted Type Area Journeyman Pipefitter Device Identifier Shelf Expiration Date Model / Serial / Lot Port Implant W/8f Poly Cath - [id number] Implanted:Qty : 1 on 12/01/2022 by Brad Cerda DO at OR [facility] Right: Chest CR BARD : PERIPHERAL VASCULAR [id number] 02/24/2024 [id number] / / [id number] System Urolift - [id number] Implanted:Qty : 6 on 05/31/2023 by Adolfo Key MD at OR [facility] [employer] 09/01/2023 [id number] / / [id number] Description:prostate documented as of this encounter Visit Diagnoses Diagnosis Adenocarcinoma of pancreas (HCC) Malignant neoplasm of pancreas, part unspecified Metastasis to liver (HCC) Secondary malignant neoplasm of liver Hepatic encephalopathy (HCC) Hepatic encephalopathy Adenocarcinoma of pancreas (HCC)- Primary Malignant neoplasm of pancreas, part unspecified documented in this encounter Advance Directives Documents on File Type Date Recorded Patient Leadership Development Consultant Expl anation POLST 07/13/2023 4:08 PM POLST [...] Discussed due to patient's condition Care Teams Jet Piercer Operator Relationship Specialty Start Date End Date Ray Royal MD [address] [place] [address] [place] [address] PCP - General Family Medicine 10/22/18 documented as of this encounter
--- OUTSIDE RECORDS SUMMARY | 2023-09-20 05:41 | External Medical Summary | Summary of Care ---
Author Name Unknown Organization [facility] Address [address] [place] [address] Phone [phone] Care Team Providers Care Shoe Parts Caser Name Role Phone Ray Royal MD Primary Care Provider [phone] Encounter Details Date Type Department Care Team (Late st Contact Info) Description 09/07/2023 Telephone [facility] Palliative Medicine [address] [place], [place] [phone] Naheed العراقي, PA-C [address] [place] [address] Allergies No known active allergiesdocumented as of this encounter (statuses as of 09/12/2023) Medications Medication Sig Dispensed Refills Start Date [...] Pain, Severe. 60 Tablet 0 09/06/2023 Active documented as of this encounter (statuses as of 09/12/2023) Active Problems Problem Noted Date Diagnosed Date [...] as of this encounter (statuses as of 09/12/2023) Immunizations Name Administration Dates Next Due COVID-19 mRNA, LNP-s, No Pre serve, 2-Dose Series (YouTube) 02/23/2021,02/02/2021 HEP A - Hepatitis A (Adult > 18 yrs) 09/21/2020, 02/10/2020 Hepatitis B, 20+ yrs 09/21/2020,03/23/2020,02/09 Pneumococcal Conjugate Vacci ne, 20-valent ([id number]) 10/26/2022(Deferred: Patient Refused) Pneumococcal Polysaccharide PPV23 (Pneumovax) [...] encounter Miscellaneous Notes * Telephone Encounter - Naheed العراقي PA-C - 09/07/2023 1:19 PM EDT LM for patient or his significant other to call back. I was just checking in on him to see how he'sfeeling because he didn't seem like himself yesterday. I called his house twice, and his significant other's phone # twice with no answer this morning andagain this afternoon. documented in this encounter Plan of Treatment Upcoming Encounters Date Type Department Care Team (Late st Contact Info) Description 09/13/2023 1:00 PM EDT Laboratory Laboratory [facility] [place] [address] [place] [phone] Neisha, Lab Scenery [address] [place] [address] 09/13/2023 2:00 PM EDT Hem/Onc Treatment Hematology/Oncology Treatment, [place] [address] [place] [phone] Neisha, Chair 6 Hem Onc [facility] [address] [place] [address] 09/18/2023 1:45 PM EDT Imaging Radiology [address] [place] [address] 09/27/2023 12:50 PM EDT Laboratory Laboratory [facility] Driver [place] [address] [place], [place] [phone] Neisha, Lab Scenery [address] [place], [place] [address] 09/27/2023 2:00 PM EDT Hem/Onc Treatment Hematology/Oncology Treatment, [place] 200 [facility], [place] [phone] Neisha, Chair 1 Hem Onc Scenery [address] [place], [place] [address] 10/04/2023 1:00 PM EDT Laboratory Laboratory Tisha Driver [place] [address] [place], [place] [address] Neisha, Lab Scenery [address] [facility] [place], [place] [address] 10/04/2023 2:00 PM EDT Hem/Onc Treatment Hematology/Oncology Treatment, [place] 200 [facility], [place] [phone] Neisha, Chair 10 Hem Onc Scenery 200 Tisha Montgomery [place], [place] [address] 10/10/2023 12:45 PM EDT Imaging Radiology [address], [place] 132 [facility] [address] 10/19/2023 10:30 AM EDT Laboratory Laboratory Tisha Driver [place] [address] [place], [place] [phone] Neisha, Lab [address] [place] [address] [facility] [place], [place] [address] 10/19/2023 11:00 AM EDT Office Visit Hematology/Oncology [facility] Neisha [place] [address] [place], [place] [phone] Rachel Marina CRNP 400 [facility] [place] [address] 10/19/2023 11:30 AM EDT Hem/Onc Treatment Hematology/Oncology Treatment, [place] 200 [facility], [place] [phone] Neisha, Chair 11 Hem Onc Scen[address] [place] [address] 10/26/2023 12:50 PM EDT Laboratory Laboratory [facility] [place] [address] [place] [phone] Neisha, Lab [facility] 200 [facility] [place] [address] 10/26/2023 2:00 PM EDT Hem[facility] [phone] Neisha, Chair 9 Hem Onc Scenery 200 [facility] [place] [address] 11/15/2023 11:30 AM EDT Office Visit Urology, [facility] 132 [facility] [place] [phone] Adolfo Key MD [address] [address] [place] [address] Scheduled Procedures Name Priority [...] this encounter Medical Devices Implanted Type Area Buffet Server Device Identifier Shelf Expiration Date Model / Serial / Lot Port Implant W/8f Poly Cath - [id number] Implanted:Qty : 1 on 12/01/2022 by Brad Cerda DO at OR [facility] Right: Chest CR BARD : PERIPHERAL VASCULAR [id number] 02/24/2024 [id number] / / [id number] System Urolift - [id number] Implanted:Qty : 6 on 05/31/2023 by Adolfo Key MD at OR [facility] [employer] 09/01/2023 [id number] / / [id number] Description:prostate documented as of this encounter Advance Directives Documents on File Type Date Recorded Patient Payroll Lead Expl anation POLST 07/13/2023 4:08 PM POLST [...] Discussed due to patient's condition Care Teams Shoe Parts Caser Relationship Specialty Start Date End Date Ray Royal MD [address] [place] [address] [place] [address] PCP - General Family Medicine 10/22/18 documented as of this encounter
--- OUTSIDE RECORDS SUMMARY | 2023-09-20 05:41 | External Medical Summary ---
Author Name Unknown Address Unknown Organization K01[facility] [address] [place] [address] Laboratory Report Ordering Provider Test Date Status IRMA SMITHEL 09/13/2023 11:59:11 Final Observation Date Value Abnormality Reference (Units ) Status Ammonia 09/13/2023 11:59:11 38 Above high normal 11 -35 (umol/L) Final Performing Location [facility] - [address] [place] [address]
--- OUTSIDE RECORDS SUMMARY | 2023-09-20 05:41 | External Medical Summary | Summary of Care ---
Author Name Unknown Organization [facility] Address [address] [place] [address] Phone [phone] Care Team Providers Care Assistant Professor Of German Name Role Phone Ray Royal MD Primary Care Provider [phone] Encounter Details Date Type Department Care Team (Late st Contact Info) Description 09/13/2023 Orders Only Hematology/Oncology [place] 200 [facility] [place] [phone] Teto Torrez MD 200 [facility] [address] Adenocarcinoma of pancreas (HCC)*; Metastasis to liver (HCC); Hepatic encephalopathy (HCC) [...] mRNA, LNP-s, No Pre serve, 2-Dose Series (CinaMaker) 02/23/2021,02/02/2021 HEP A - Hepatitis A (Adult > 18 yrs) 09/21/2020, 02/10/2020 Hepatitis B, 20+ yrs 09/21/2020,03/23/2020,02/09 Pneumococcal Conjugate Vacci ne, 20-valent ([id number]) 10/26/2022(Deferred: Patient Refused) Pneumococcal Polysaccharide PPV23 (Pneumovax) [...] as of this encounter Progress Notes * Teto Torrez MD - 09/13/2023 10:49 AM EDT I would like to get ammonia level when he gets his blood workup today. ( ordered). documented in this encounter Plan of Treatment Upcoming Encounters Date Type Department Care Team (Late st Contact Info) Description 09/13/2023 1:00 PM EDT Laboratory Laboratory [facility] [place] [address] [place] [phone] Neisha Lab [facility] 200 [facility] [place] [address] 09/13/2023 2:00 PM EDT Hem/Onc Treatment Hematology/Oncology Treatment, [place] [address] [place] [phone] Neisha, Chair 6 Hem Onc Scen[address] [place] [address] 09/18/2023 1:45 PM EDT Imaging Radiology [address] [place] [address] 09/27/2023 12:50 PM EDT Laboratory Laboratory [facility] [address] [place], [place] [phone] Neisha, Lab Scenery [address] [place], [place] [address] 09/27/2023 2:00 PM EDT Hem/Onc Treatment Hematology/Oncology Treatment, [place] 200 [facility], [place] [phone] Neisha, Chair 1 Hem Onc Scenery [address] [place] [address] 10/04/2023 1:00 PM EDT Laboratory Laboratory [facility] [place] [address] [place], [place] [phone] Neisha, Lab Scenery [address] [facility] [place], [place] [address] 10/04/2023 2:00 PM EDT Hem/Onc Treatment Hematology/Oncology Treatment, [place] 200 [facility], [place] [phone] Neisha, Chair 10 Hem Onc Scenery [address] [place], [place] [address] 10/10/2023 12:45 PM EDT Imaging Radiology [address], [place] 132 [facility] [place] [address] 10/19/2023 10:30 AM EDT Laboratory Laboratory [facility] Ne[place] [address] [place] [phone] Neisha, Lab Scenery [address] [place], [place] [address] 10/19/2023 11:00 AM EDT Office Visit Hematology/Oncology [facility] [place] [address] [place] [phone] Rachel Marina CRNP [address] [place] [address] [place] [address] 10/19/2023 11:30 AM EDT Hem[facility] 200 [facility], [place] [phone] Neisha, Chair 11 Hem Onc Scenery [address] [place], [place] [address] 10/26/2023 12:50 PM EDT Laboratory Laboratory [facility] [address] [place], [place] [phone] Neisha, Lab Scenery 200 [facility] [place], [place] [address] 10/26/2023 2:00 PM EDT Hem[facility]c [facility] 200 [facility], [place] [phone] Neisha, Chair 9 Hem Onc Scenery 200 [facility] [place], [place] [address] 11/15/2023 11:30 AM EDT Office Visit Urology, [facility] 132 [facility] [place] [address] Adolfo Key MD 27 [facility] 270 [facility] [place] [address] Scheduled Orders Name Type Priority Associated Diagnoses Orde r Schedule AMMONIA Lab Routine Adenocarcinoma of pancreas (HCC) Metastasis to liver (HCC) Hepatic encephalopathy (HCC) Expected: 09/13/2023, Expires: 09/12/2024 Scheduled Procedures [...] - PCV) 05/10/2022 05/10/2021 GFR 09/05/2024 09/06/2023, 03/01/2024, 08/22/2023, Additional history exists Albumin/Creatinine Ratio 09/14/2025 [...] this encounter Medical Devices Implanted Type Area Enrollment Management Director Device Identifier Shelf Expiration Date Model / Serial / Lot Port Implant W/8f Poly Cath - [id number] Implanted:Qty : 1 on 12/01/2022 by Brad Cerda DO at OR [facility] Right: Chest CR BARD : PERIPHERAL VASCULAR [id number] 02/24/2024 [id number] / / [id number] System Urolift - [id number] Implanted:Qty : 6 on 05/31/2023 by Adolfo Key MD at OR [facility] [employer] 09/01/2023 [id number] / / [id number] Description:prostate documented as of this encounter Visit Diagnoses Diagnosis Adenocarcinoma of pancreas (HCC)- Primary Malignant neoplasm of pancreas, part unspecified Metastasis to liver (HCC) Secondary malignant neoplasm of liver Hepatic encephalopathy (HCC) Hepatic encephalopathy documented in this encounter Advance Directives Documents on File Type Date Recorded Patient Coating Engineer Expl anation POLST 07/13/2023 4:08 PM [...] Discussed due to patient's condition Care Teams Assistant Professor Of German Relationship Specialty Start Date End Date Ray Royal MD [address] [place] [address] [place] [address] PCP - General Family Medicine 10/22/18 documented as of this encounter
--- OUTSIDE RECORDS SUMMARY | 2023-09-20 05:41 | External Medical Summary ---
Author Name Unknown Address Unknown Organization K09:[facility] [place] [address] Laboratory Report Ordering Provider Test Date Status TJ SMITH 09/13/2023 11:59:11 Final Observation Date Value Abnormality Reference (Units ) Status Color of Urine by Auto 09/13/2023 11:59:11 Yellow Colorless, Light Yellow, Yellow, Dark Yellow Final Clarity, Urine 09/13/2023 11:59:11 Clear Clear Final Glucose [Mass/volume] in Urine by Automated test strip 09/13/2023 11:59:11 Negative Negative (mg/dL) Final Bilirubin.total [Presence] in Urine by Automated test strip 09/13/2023 11:59:11 Small Abnormal Negative Final Ketones [Mass/volume] in Urine by Automated test strip 09/13/2023 11:59:11 15 Abnormal Negative (mg/dL) Final Specific gravity, Urine 09/13/2023 11:59:11 1.020 1.003-1.030 Final Hemoglobin [Presence] in Urine by Automated test strip 09/13/2023 11:59:11 Negative Negative Final pH, Urine 09/13/2023 11:59:11 5.0 5.0-7.5 (Units) Final Protein [Mass/volume] in Urine by Automated test strip 09/13/2023 11:59:11 30 Abnormal Negative (mg/dL) Final Urobilinogen [Mass/volume] in Urine by Automated test strip 09/13/2023 11:59:11 1.0 0.2, 1.0 (mg/dL) Final Nitrite [Presence] in Urine by Automated test strip 09/13/2023 11:59:11 Negative Negative Final Leukocyte esterase [Presence] in Urine by Automated test strip 09/13/2023 11:59:11 Negative Negative Final Performing Location [facility] [place] [address]
--- OUTSIDE RECORDS SUMMARY | 2023-09-20 05:41 | External Medical Summary ---
Author Name Unknown Address Unknown Organization K01:[facility] - [address] [place] [address] Laboratory Report Ordering Provider Test Date Status TJ SMITH 09/13/2023 11:59:11 Final Normal: <150 mg/ g creatinine
High: 150-500 mg/g creatinine
Very High: >500 mg/g creatinine
Nephrotic: >3000 mg/g creatinine Observation Date Value Abnormality Reference (Units ) Status Protein/Creatinine [Ratio] in Urine 09/13/2023 11:59:11 222 Above high normal <150 (mg/g ) Final Protein, Urine 09/13/2023 11:59:11 40 (mg/dL) Final Creatinine, Urine 09/13/2023 11:59:11 180 (mg/dL) Final Performing Location [facility] - [address] [place] [address]
--- OUTSIDE RECORDS SUMMARY | 2023-09-20 05:41 | External Medical Summary | Summary of Care ---
Author Name Unknown Organization [facility] Address [address] [place] [address] Phone [phone] Care Team Providers Care Aerodynamics Engineer Name Role Phone Ray Royal MD Primary Care Provider [phone] Reason for Visit * Reason Comments Chemotherapy C2D8 gemzar, being h eld d/t patient not feeling well. IV Therapy Hydration. * Evaluate & Treat - Unlimited Visits (Within 30 days (routine)) - Authorized Specialty Diagnoses / Procedures Referred By Mike velázquez Referred To Contact Hematology Oncology Diagnoses Gallbladder cancer (HCC) Procedures Eval/Treat Anabell Driver PA-C [address] [place] [address] Referral ID Status Reason Start Date Expiration Date Visits Requested Visits Authorized [id number] Authorized Specialty Services Required 12/01/2022 12/06/[phone] Encounter Details Date Type Department Care Team (Latest Contact Info) Description 08/15/2023 11:15 AM EST Hem/Onc Treatment Hematology/Oncology Treatment, [address] [place] [address] Neisha, Chair 4 Hem [place] [place] [address] Dehydration*; Adenocarcinoma of pancreas (HCC); Metastasis to [...] mRNA, LNP-s, No Pre serve, 2-Dose Series (Chartboost) 02/23/2021,02/02/2021 HEP A - Hepatitis A (Adult > 18 yrs) 09/21/2020, 02/10/2020 Hepatitis B, 20+ yrs 09/21/2020,03/23/2020,02/09 Pneumococcal Conjugate Vacci ne, 20-valent ([id number]) 10/26/2022(Deferred: Patient Refused) Pneumococcal Polysaccharide PPV23 (Pneumovax) [...] Sign Reading Time Taken Comments Blood Pressure 116/73 08/15/2023 11:40 AM EST Pulse 114 08/15/2023 11:40 AM EST Temperature 36.4 C (97.5 F) 08/15/2023 1 1:40 AM EST Respiratory Rate 18 08/15/2023 11:4 0 AM EST Oxygen Saturation 95% 08/15/2023 11: 40 AM EST Inhaled Oxygen Concentration - - Weight 112.6 kg (248 lb 3.2 oz) 024 11:40 AM EST Height - - Body Mass Index 31.02 05/31/2023 10:31 AM EST documented in this encounter Nursing Notes * Juju Hall RN - 08/15/2023 2:06 PM EST Goals: Patient will remain free from injury. Possible barriers to meeting goals: Fall risk d/t ambulation with IV pole. Stability of the patient: Moderately unstable - medium risk of patient condition declining or worsening Summary regarding today's goals: Met: Patient remained free of injury. Patient tolerated infusion well. Discharged in stable condition. * Juju Hall RN - 08/15/2023 12:30 PM EST Chair 11. Patient arrived for c2D8 Gemzar. Upon walking into treatment room patient became dizzy and lightheaded, patient states he has been feeling this way a lot lately. Overall hasn't been feeling well, states his appetite is decreased, he can't eat or drink much at all and he is tired. Patients h/h also dropped to 9.6 and [address] Talk[address] with Dr. Torrez and per Dr. Torrez going to delay treatment for 1 weekand give 1 liter of NSS over 2 hours today. Patient agreeable to plan. VAD accessed with no issues. Safety and Risk for Injury Patient will remain free from injury. Ensure appropriate safety devices are available. Provide and maintain safe environment. documented in this encounter Plan of Treatment Upcoming Encounters Date Type Department Care Team (Late st Contact Info) Description 09/13/2023 1:00 PM EDT Laboratory Laboratory [facility] [place] [address] [place] [phone] Neisha, Lab [facility] 200 [facility] [place] [address] 09/13/2023 2:00 PM EDT Hem/Onc Treatment Hematology/Oncology Treatment, [place] [address] [place] [phone] Neisha, Chair 6 Hem Onc [place] 200 [facility] [place] [address] 09/18/2023 1:45 PM EDT Imaging Radiology [address] [place] [address] 09/27/2023 12:50 PM EDT Laboratory Laboratory [facility] Neisha [place] [address] [place] [phone] Neisha, Lab [address] [place] [address] 09/27/2023 2:00 PM EDT Hem/Onc Treatment Hematology/Oncology Treatment, [place] 200 [facility], [place] [phone] Neisha, Chair 1 Hem Onc Scen[address] [place] [address] 10/04/2023 1:00 PM EDT Laboratory Laboratory [facility] Nesiha [place] [address] [place] [address] Neisha, Lab [address] [place] [address] 10/04/2023 2:00 PM EDT Hem/Onc Treatment Hematology/Oncology Treatment, [place] 200 [facility], [place] [phone] Neisha, Chair 10 Hem Onc Scen[address] [place] [address] 10/10/2023 12:45 PM EDT Imaging Radiology [address] 132 [facility] [place] [address] 10/19/2023 10:30 AM EDT Laboratory Laboratory [facility] Neisha [place] [address] [place] [phone] Neisha, Lab [address] [place] [address] 10/19/2023 11:00 AM EDT Office Visit Hematology/Oncology [facility] Neisha [place] [address] [place] [phone] Rachel Marina CRNP 400 [facility] [place] [address] 10/19/2023 11:30 AM EDT [facility] 200 [facility], [place] [phone] Neisha, Chair 11 Hem Onc [address]en[address] [place] [address] 10/26/2023 12:50 PM EDT Laboratory Laboratory [facility] 200 [facility] [place] [phone] Neisha, Lab [facility] 200 [facility] [place] [address] 10/26/2023 2:00 PM EDT Hem[facility] 200 [facility], [place] [phone] Neisha, Chair 9 Hem Onc Scenery 200 [facility] [place] [address] 11/15/2023 11:30 AM EDT Office Visit Urology, [facility] 132 [facility] [place] [address] Adolfo Key MD [address] [place] [address] [place] [phone] Scheduled Procedures Name Priority Associated Diagnoses Date/Ti [...] this encounter Medical Devices Implanted Type Area Dentistry Teacher Device Identifier Shelf Expiration Date Model / Serial / Lot Port Implant W/8f Poly Cath - [id number] Implanted:Qty : 1 on 12/01/2022 by Brad Cerda DO at OR [facility] Right: Chest CR BARD : PERIPHERAL VASCULAR [id number] 02/24/2024 [id number] / / [id number] System Urolift - [id number] Implanted:Qty : 6 on 05/31/2023 by Adolfo Key MD at OR [facility] [employer] 09/01/2023 [id number] / / [id number] Description:prostate documented as of this encounter Visit [...] Lock, PRN Other, IV Flush, Starting on Mon08/15/23 at 1216, Until Mon08/15/23 at 1807, For 24 hours, Do not flush if lock, PICC, or central line not in place; IV infusing or unable to flush. Given 08/15/2023 1:50 PM EST 500 Units NSS infusion FOR HYDRATION Intravenous, at 1,000 mL/hr Administer over 1 Hours, ONCE, 1 dose, On Mon08/15/23 at 1330 Start Infusion 08/15/2023 11:45 AM EST 1,000 mL 1000 mL/hr sodium chloride 0.9 % flush central line 10 mL 10 mL, IV Push, PRN Other, IV Flush, Starting on Mon08/15/23 at 1216, Until Mon08/15/23 at 1807, For 24 hours, Do not flush if lock, PICC, or central line not in place; IV infusing or unable to flush. Given 08/15/2023 1:50 PM EST 10 mL documented in this encounter Advance Directives Documents on File Type Date Recorded Patient Stope Miner Expl anation POLST 07/13/2023 4:08 PM POLST [...] Discussed due to patient's condition Care Teams Aerodynamics Engineer Relationship Specialty Start Date End Date Ray Royal MD [address] [place] [address] [place] [phone] PCP - General Family Medicine 10/22/18 documented as of this encounter
--- OUTSIDE RECORDS SUMMARY | 2023-09-20 05:41 | External Medical Summary ---
Author Name Unknown Address Unknown Organization K09:[facility] [place] [address] Laboratory Report Ordering Provider Test Date Status TJ SMITH 09/13/2023 11:59:11 Final Observation Date Value Abnormality Reference (Units ) Status RBC, Urine 09/13/2023 11:59:11 0-2 0-2 (/HPF) Final WBC, Urine 09/13/2023 11:59:11 0-2 0-2 (/HPF) Final Bacteria [#/area] in Urine sediment by Microscopy high power field 09/13/2023 11:59:11 0-25 0-25 (/HPF) Final Hyaline casts, Urine 09/13/2023 11:59:11 5-9 Abnormal None (/LPF) Final Performing Location [facility] [place] [address]
--- OUTSIDE RECORDS SUMMARY | 2023-09-20 05:41 | External Medical Summary | Summary of Care ---
Author Name Unknown Organization [facility] Address [address] [place] [address] Phone [phone] Care Team Providers Care Silk Screen Printer Machine Name Role Phone Ray Royal MD Primary Care Provider + [phone] Reason for Visit * Reason Comments Chemotherapy Gemzar. * Evaluate & Treat - Unlimited Visits (Within 30 days (routine)) - Authorized Specialty Diagnoses / Procedures Referred By Mike velázquez Referred To Contact Hematology Oncology Diagnoses Gallbladder cancer (HCC) Procedures Eval/Treat Anabell Driver PA-C [address] [place] [address] Referral ID Status Reason Start Date Expiration Date Visits Requested Visits Authorized [id number] Authorized Specialty Services Required 12/01/2022 12/06/[phone] Encounter Details Date Type Department Care Team (Latest Contact Info) Description 08/22/2023 10:00 AM EST Hem/Onc Treatment Hematology/Oncolog y Treatment, [address] [phone] Neisha, Chair [address] [address] Adenocarcinoma of pancreas (HCC)*; Encounter for antineoplastic [...] mRNA, LNP-s, No Pre serve, 2-Dose Series ([employer]) 02/23/2021,02/02/2021 HEP A - Hepatitis A (Adult > 18 yrs) 09/21/2020, 02/10/2020 Hepatitis B, 20+ yrs 09/21/2020,03/23/2020,02/09 Pneumococcal Conjugate Vacci ne, 20-valent ([id number]) 10/26/2022(Deferred: Patient Refused) Pneumococcal Polysaccharide PPV23 (Pneumovax) [...] Sign Reading Time Taken Comments Blood Pressure 117/79 08/22/2023 2:29 PM EST Pulse 105 08/22/2023 2:29 PM EST Temperature 36.9 C (98.4 F) 08/22/2023 2:29 PM ES T Respiratory Rate 18 08/22/2023 2:29 PM EST Oxygen Saturation 95% 08/22/2023 2:29 PM EST Inhaled Oxygen Concentration - - Weight 113.9 kg (251 lb 3.2 oz) 08/22/2023 2:29 PM EST Height - - Body Mass Index 31.4 05/31/2023 10:31 AM EST documented in this encounter Nursing Notes * Juju Hall RN - 08/22/2023 2:37 PM EST Goals: Patient will remain free from injury. Possible barriers to meeting goals: Fall risk d/t ambulation with IV pole. Stability of the patient: Moderately unstable - medium risk of patient condition declining or worsening Summary regarding today's goals: Met: Patient remained free of injury. Patient tolerated infusion well. Discharged in stable condition. * Juju Hall RN - 08/22/2023 2:30 PM EST Chair 1. Patient arrived for bowiezar. Patient states does not feel well overall, he said he has been having increased pain, night sweats, and decreased appetite. Dr. Torrez came out to bedside to talk with patient and assess. Per Dr. Torrez ok to treat, going to order hormone labs on patient to see if that is causing some of the issues patient is having. Chemotherapy/Immunotherapy agents: GEMZAR Consent for chemotherapy drug treatment complete, dated, and signed? yes, date - 07/18/23 Treatment lab parameters met? Yes Has treatment weight changed > than 10%? No Treatment preauthorized? Yes VITALS Filed Vitals: 08/22/23 1429 BP: 117/79 Pulse: 105 Resp: 18 Temp: 36.9 C (98.4 F) TempSrc: Tympanic SpO2: 95% Weight: 113.9 kg (251 lb 3.2 oz) Urine protein: N/A Patient education completed for treatment? Yes Blood [...] side effects during treatment. PRE-TREATMENT ASSESSMENT: NEURO: dizziness: yes and fatigue:yes CV/RESP: dizziness: yes GI/: nausea: yes and decreased appetite: yes OTHER: denies any additional symptoms PAIN: 5-6 pain location : Right side of abdomen. Safety and Risk for Injury Patient will remain free from injury. Ensure appropriate safety devices are available. Provide and maintain safe environment. documented in this encounter Plan of Treatment Upcoming Encounters Date Type Department Care Team (Late st Contact Info) Description 09/13/2023 1:00 PM EDT Laboratory Laboratory [address] [place] [address] [place] [phone] [place], Lab [address] [place] [address] 09/13/2023 2:00 PM EDT Hem/Onc Treatment Hematology/Oncology Treatment, [address] [place] [address] Neisha, Chair 6 Hem Onc [address] [place] [address] 09/18/2023 1:45 PM EDT Imaging Radiology [address] [place] [address] 09/27/2023 12:50 PM EDT Laboratory Laboratory [facility] [place] [address] [place] [phone] Neisha, Lab [address] [place] [address] 09/27/2023 2:00 PM EDT Hem/Onc Treatment Hematology/Oncology Treatment, [address] [place] [address] Neisha, Chair 1 Hem Onc [address] [place] [address] 10/04/2023 1:00 PM EDT Laboratory Laboratory [facility] [place] [address] [place] [address] Neisha, Lab [address] [place] [address] 10/04/2023 2:00 PM EDT Hem/Onc Treatment Hematology/Oncology Treatment, [place] 200 [facility], [place] [phone] Neisha, Chair 10 Hem Onc [address] [place] [address] 10/10/2023 12:45 PM EDT Imaging Radiology [address], [place] [address] [facility] [place] [address] 10/19/2023 10:30 AM EDT Laboratory Laboratory [facility] [place] [address] [place] [phone] Neisha, Lab [facility] 200 [address] [facility] [place], [place] [address] 10/19/2023 11:00 AM EDT Office Visit Hematology/Oncology [facility] Neisha [place] [address] [place] [address] Rachel Marina, NOELLE 400 [facility] [place] [address] 10/19/2023 11:30 AM EDT Hem/Onc Treatment Hematology/Oncology Treatment, [place] 200 [facility], [place] [phone] Neisha, Chair 11 Hem Onc [address] [place] [address] 10/26/2023 12:50 PM EDT Laboratory Laboratory [facility] Neisha [place] [address] [place] [address] Neisha, Lab [address] [facility] [place], [place] [address] 10/26/2023 2:00 PM EDT Hem/Onc Treatment Hematology/Oncology Treatment, [place] 200 [facility] [address] Neisha, Chair 9 Hem Onc [address] [place] [address] 11/15/2023 11:30 AM EDT Office Visit Urology, [facility] [address] [place] [address] Adolfo Key MD [facility] [...] this encounter Medical Devices Implanted Type Area Appliance Mechanic Device Identifier Shelf Expiration Date Model / Serial / Lot Port Implant W/8f Poly Cath - [id number] Implanted:Qty : 1 on 12/01/2022 by Brad Cerda DO at OR [facility] Right: Chest CR BARD : PERIPHERAL VASCULAR [id number] 02/24/2024 [id number] / / [id number] System Urolift - [id number] Implanted:Qty : 6 on 05/31/2023 by Adolfo Key MD at OR [facility] [employer] 09/01/2023 [id number] / / [id number] Description:prostate documented as of this encounter Visit [...] weight), IV Piggyback, ONCE, 1 dose, On Mon08/22/23 at 1330, Administer over 30 Minutes Start Infusion 08/22/2023 12:18 PM EST 2,600 mg 500 mL/hr hEParin 100 UNIT/ML Lock Flush inj 500 Units 500 Units (5 mL), IV Lock, PRN Other, IV Flush, Starting on Mon08/22/23 at 1149, Until Mon08/22/23 at 1839, For 24 hours, Do not flush if lock, PICC, or central line not in place; IV infusing or unable to flush. Given 08/22/2023 12:53 PM EST 500 Units NSS infusion Intravenous, at 50 mL/hr, PRN, Starting on Mon08/22/23 at 1300, Until Mon08/22/23 at 1839, Maintenance line Start Infusion 08/22/2023 12:09 PM EST 50 mL/hr ondansetron (Zofran) tab 8 mg 8 mg, Oral, ONCE, On Mon08/22/23 at 1300, For 1 dose, Give 30 minutes prior to chemotherapy. Given 08/22/2023 12:09 PM EST 8 mg sodium chloride 0.9 % flush central line 10 mL 10 mL, IV Push, PRN Other, IV Flush, Starting on Mon08/22/23 at 1149, Until Mon08/22/23 at 1839, For 24 hours, Do not flush if lock, PICC, or central line not in place; IV infusing or unable to flush. Given 08/22/2023 12:53 PM EST 10 mL documented in this encounter Advance Directives Documents on File Type Date Recorded Patient Certified Caregiver Expl anation POLST 07/13/2023 4:08 PM POLST [...] Discussed due to patient's condition Care Teams Silk Screen Printer Machine Relationship Specialty Start Date End Date Ray Royal MD [address] [place] [address] [place] [address] PCP - General Family Medicine 10/22/18 documented as of this encounter
--- OUTSIDE RECORDS SUMMARY | 2023-09-20 05:41 | External Medical Summary | Summary of Care ---
Author Name Unknown Organization [facility] Address [address] [place] [address] Phone [phone] Care Team Providers Care Record Changer Name Role Phone Ray Royal MD Primary Care Provider + [phone] Reason for Visit * Reason Comments Chemotherapy Gemzar. * Evaluate & Treat - Unlimited Visits (Within 30 days (routine)) - Authorized Specialty Diagnoses / Procedures Referred By Mike velázquez Referred To Contact Hematology Oncology Diagnoses Gallbladder cancer (HCC) Procedures Eval/Treat Anabell Driver PA-C [address] [place] [address] [address] Referral ID Status Reason Start Date Expiration Date Visits Requested Visits Authorized [id number] Authorized Specialty Services Required 12/01/2022 12/06/[phone] Encounter Details Date Type Department Care Team (Latest Contact Info) Description 08/22/2023 10:00 AM EST Hem/Onc Treatment Hematology/Oncolog y Treatment, [address] [phone] Neisha, Chair [address] [address] Adenocarcinoma of pancreas (HCC)*; Encounter for antineoplastic [...] mRNA, LNP-s, No Pre serve, 2-Dose Series ([employer]) 02/23/2021,02/02/2021 HEP A - Hepatitis A (Adult > 18 yrs) 09/21/2020, 02/10/2020 Hepatitis B, 20+ yrs 09/21/2020,03/23/2020,02/09 Pneumococcal Conjugate Vacci ne, 20-valent ([id number]) 10/26/2022(Deferred: Patient Refused) Pneumococcal Polysaccharide PPV23 (Pneumovax) [...] PM EST Chair 1. Patient arrived for joneszar. Patient states does not feel well overall, [...] 09/13/2023 1:00 PM EDT Laboratory Laboratory [place] [address] [place] [phone] [place], Lab Scen[address] [place] [address] 09/13/2023 2:00 PM EDT Hem/Onc Treatment Hematology/Oncology Treatment, [address] [place] [address] Neisha, Chair 6 Hem Onc [address] [place] [address] 09/18/2023 1:45 PM EDT Imaging Radiology [address] [place] [address] 09/27/2023 12:50 PM EDT Laboratory Laboratory [facility] [place] [address] [place] [phone] Neisha, Lab [address] [place] [address] 09/27/2023 2:00 PM EDT Hem/Onc Treatment Hematology/Oncology Treatment, [address] [place] [address] Neisha, Chair 1 Hem Onc [address] [place] [address] 10/04/2023 1:00 PM EDT Laboratory Laboratory [facility] Neisha [place] [address] [place] [address] Neisha, Lab [address]en[address] [place] [address] 10/04/2023 2:00 PM EDT Hem/Onc Treatment Hematology/Oncology Treatment, [place] 200 [facility], [place] [phone] Neisha, Chair 10 Hem Onc [address] [place] [address] 10/10/2023 12:45 PM EDT Imaging Radiology [address], [place] [address] [facility] [place] [address] 10/19/2023 10:30 AM EDT Laboratory Laboratory [facility] [place] [address] [place] [phone] Neisha, Lab [facility] [address] [facility] [place], [place] [address] 10/19/2023 11:00 AM EDT Office Visit Hematology/Oncology [facility] Neisha [place] [address] [place] [phone] Rcahel Marina, NOELLE 400 [facility] [place] [address] 10/19/2023 11:30 AM EDT Hem/Onc Treatment Hematology/Oncology Treatment, [place] 200 [facility], [place] [address] Neisha, Chair 11 Hem Onc [address] [place] [address] 10/26/2023 12:50 PM EDT Laboratory Laboratory [facility] Neisha [place] [address] [place] [address] Neisha, Lab [address]enery [address] [facility] [place], [place] [address] 10/26/2023 2:00 PM EDT Hem/Onc Treatment Hematology/Oncology Treatment, [place] [facility] [address] Neisha, Chair 9 Hem Onc [address] [place] [address] 11/15/2023 11:30 AM EDT Office Visit Urology, [facility] [address] [place] [address] Adolfo Key MD [address] [facility] [address] [place] [address] Scheduled [...] this encounter Medical Devices Implanted Type Area Geotechnical Engineering Technician Device Identifier Shelf Expiration Date Model / Serial / Lot Port Implant W/8f Poly Cath - [id number] Implanted:Qty : 1 on 12/01/2022 by Brad Cerda DO at OR [facility] Right: Chest CR BARD : PERIPHERAL VASCULAR [id number] 02/24/2024 [id number] / / [id number] System Urolift - [id number] Implanted:Qty : 6 on 05/31/2023 by Adolfo Key MD at OR [facility] [employer] 09/01/2023 [id number] / / [id number] Description:prostate documented as of this encounter Visit [...] Documents on File Type Date Recorded Patient Internal Medicine Nurse Practitioner Expl anation POLST 07/13/2023 4:08 PM POLST [...] Discussed due to patient's condition Care Teams Record Changer Relationship Specialty Start Date End Date Ray Royal MD [address] [place] [address] [place] [address] PCP - General Family Medicine 10/22/18 documented as of this encounter
--- OUTSIDE RECORDS SUMMARY | 2023-09-20 05:42 | External Medical Summary | Summary of Care ---
Author Name Unknown Organization [facility] Address [address] [place] [address] Phone [phone] Care Team Providers Care Health It Specialist Name Role Phone Ray Royal MD Primary Care Provider + [phone] Reason for Visit * Reason Comments Chemotherapy Gemzar. * Evaluate & Treat - Unlimited Visits (Within 30 days (routine)) - Authorized Specialty Diagnoses / Procedures Referred By Mike velázquez Referred To Contact Hematology Oncology Diagnoses Gallbladder cancer (HCC) Procedures Eval/Treat Anabell Driver PA-C [address] [place] [address] Referral ID Status Reason Start Date Expiration Date Visits Requested Visits Authorized [id number] Authorized Specialty Services Required 12/01/2022 12/06/[phone] Encounter Details Date Type Department Care Team (Latest Contact Info) Description 08/22/2023 10:00 AM EST Hem/Onc Treatment Hematology/Oncolog y Treatment, [address] [address] Neisha, Chair [address] [address] Adenocarcinoma of pancreas (HCC)*; Encounter for antineoplastic [...] mRNA, LNP-s, No Pre serve, 2-Dose Series (Linq3) 02/23/2021,02/02/2021 HEP A - Hepatitis A (Adult > 18 yrs) 09/21/2020, 02/10/2020 Hepatitis B, 20+ yrs 09/21/2020,03/23/2020,02/09 Pneumococcal Conjugate Vacci ne, 20-valent ([id number]) 10/26/2022(Deferred: Patient Refused) Pneumococcal Polysaccharide PPV23 (Pneumovax) [...] PM EST Chair 1. Patient arrived for columbiazar. Patient states does not feel well overall, [...] 09/13/2023 1:00 PM EDT Laboratory Laboratory [facility] [address] [place] [address] [place], Lab Scenery [address] [place] [address] 09/13/2023 2:00 PM EDT Hem/Onc Treatment Hematology/Oncology Treatment, [address] [place] [address] Neisha, Chair 6 Hem Onc Sc[address]ery [address] [place] [address] 09/18/2023 1:45 PM EDT Imaging Radiology [address] [place] [address] 09/27/2023 12:50 PM EDT Laboratory Laboratory [facility] [place] [address] [place] [phone] Neisha, Lab Scenery [address] [place] [address] 09/27/2023 2:00 PM EDT Hem/Onc Treatment Hematology/Oncology Treatment, [address] [place] [address] Neisha, Chair 1 Hem Onc Scenery [address] [place] [address] 10/04/2023 1:00 PM EDT Laboratory Laboratory [facility] [place] [address] [place] [address] Neisha, Lab Scenery [address] [place] [address] 10/04/2023 2:00 PM EDT Hem/Onc Treatment Hematology/Oncology Treatment, [place] 200 [facility], [place] [phone] Neisha, Chair 10 Hem Onc Scenery [address] [place] [address] 10/10/2023 12:45 PM EDT Imaging Radiology [address], [place] [address] [facility] [place] [address] 10/19/2023 10:30 AM EDT Laboratory Laboratory [facility] [place] [address] [place] [phone] Neisha, Lab [facility] [address] ON LICENSE OF [facility] [place], [place] [address] 10/19/2023 11:00 AM EDT Office Visit Hematology/Oncology [facility] [place] [address] [place] [address] Rachel Marina, NOELLE 400 [facility] [place] [address] 10/19/2023 11:30 AM EDT Hem/Onc Treatment Hematology/Oncology Treatment, [place] 200 [facility], [place] [address] Neisha, Chair 11 Hem Onc Scenery [address] [place] [address] 10/26/2023 12:50 PM EDT Laboratory Laboratory [facility] Ne[place] [address] [place] [address] Neisha, Lab Scenery [address] ON LICENSE OF [facility] [place], [place] [address] 10/26/2023 2:00 PM EDT Hem/Onc Treatment Hematology/Oncology Treatment, [place] [facility] [address] Neisha, Chair 9 Hem Onc Scenery [address] [place] [address] 11/15/2023 11:30 AM EDT Office Visit Urology, [facility] [address] [place] [address] Adolfo Key MD 27 [facility] [address] [place] [address] [...] this encounter Medical Devices Implanted Type Area Tissue Coordinator Device Identifier Shelf Expiration Date Model / Serial / Lot Port Implant W/8f Poly Cath - [id number] Implanted:Qty : 1 on 12/01/2022 by Brad Cerda DO at OR [facility] Right: Chest CR BARD : PERIPHERAL VASCULAR [id number] 02/24/2024 [id number] / / [id number] System Urolift - [id number] Implanted:Qty : 6 on 05/31/2023 by Adolfo Key MD at OR [facility] [employer] 09/01/2023 [id number] / / [id number] Description:prostate documented as of this encounter Visit [...] Documents on File Type Date Recorded Patient Bilingual Teacher Expl anation POLST 07/13/2023 4:08 PM POLST [...] Discussed due to patient's condition Care Teams Health It Specialist Relationship Specialty Start Date End Date Ray Royal MD [address] [place] [address] [place] [address] PCP - General Family Medicine 10/22/18 documented as of this encounter
--- OUTSIDE RECORDS SUMMARY | 2023-09-20 05:42 | External Medical Summary | Summary of Care ---
Author Name Unknown Organization [facility] Address [address] [place] [address] Phone [phone] Care Team Providers Care Terminal Operations Supervisor Name Role Phone Ray Royal MD Primary Care Provider [phone] Encounter Details Date Type Department Care Team (Late st Contact Info) Description 09/06/2023 Telephone Hematology/Oncology [place] 200 [facility] [place] [address] Teto Torrez MD [address] [facility] [place] [address] Allergies No known active allergiesdocumented as of this encounter (statuses as of 09/06/2023) Medications Medication Sig Dispensed Refills Start Date [...] as of this encounter (statuses as of 09/06/2023) Active Problems Problem Noted Date Diagnosed Date [...] as of this encounter (statuses as of 09/06/2023) Immunizations Name Administration Dates Next Due COVID-19 mRNA, LNP-s, No Pre serve, 2-Dose Series ([employer]) 02/23/2021,02/02/2021 HEP A - Hepatitis A (Adult > 18 yrs) 09/21/2020, 02/10/2020 Hepatitis B, 20+ yrs 09/21/2020,03/23/2020,02/09 Pneumococcal Conjugate Vacci ne, 20-valent ([id number]) 10/26/2022(Deferred: Patient Refused) Pneumococcal Polysaccharide PPV23 (Pneumovax) [...] encounter Miscellaneous Notes * Telephone Encounter - Dalia Montaño OSA - 09/06/2023 4:29 PM EDT Pt is scheduled for brain MRI at [facility] on 09/17 Pt is aware of prep Pt is also scheduled for PET on 10/09 at Pt is aware of prep instructions and has no other questions documented in this encounter Plan of Treatment Upcoming Encounters Date Type Department Care Team (Late st Contact Info) Description 09/13/2023 1:00 PM EDT Laboratory Laboratory [facility] Neisha [place] [address] [place] [phone] Neisha Lab Scene [address] [place] [place] [address] 09/13/2023 2:00 PM EDT Hem/Onc Treatment Hematology/Oncology Treatment, [place] [address] [place] [phone] Neisha, Chair 8 Hem Onc Scene [address] [place] [address] 09/18/2023 1:45 PM EDT Imaging Radiology [address] [place] [address] 09/27/2023 12:50 PM EDT Laboratory Laboratory [facility] State [place] [address] [place] [place] [address] [phone] Neisha Lab [place] [address] [address] 09/27/2023 2:00 PM EDT Hem/Onc Treatment Hematology/Oncology Treatment, [place] 200 [facility], [place] [address] Neisha, Chair 1 Hem Onc Scenery [address] [place] [address] 10/04/2023 1:00 PM EDT Laboratory Laboratory [facility] Ne[place] [address] [place] [address] Neisha, Lab Scenery [address] [facility] [place] [address] 10/04/2023 2:00 PM EDT Hem/Onc Treatment Hematology/Oncology Treatment, [place] 200 [facility], [place] [address] Neisha, Chair 10 Hem Onc Scenery [address] [place] [address] 10/10/2023 12:45 PM EDT Imaging Radiology [facility] 1st [facility], [place] 132 [facility] [place] [id number] 10/19/2023 10:30 AM EDT Laboratory Laboratory [facility] Alex [address] [place] [address] Neisha, Lab Scenery [address] [place] [facility] [place] [address] 10/19/2023 11:00 AM EDT Office Visit Hematology/Oncology [facility] Neisha [place] [address] [place] [phone] Rachel Marina CRNP [address] [place], [place] [address] [address] 10/19/2023 11:30 AM EDT Hem/Onc Treatment Hematology/Oncology Treatment, [place] [facility] [address] Neisha, Chair 11 Hem Onc Scenery [address] [place] [address] 10/26/2023 12:50 PM EDT Laboratory Laboratory Scenery [place] [address] [place] [phone] Neisha, Lab Scenery [address] [facility] [place] [address] 10/26/2023 2:00 PM EDT Hem/Onc Treatment Hematology/Oncology Treatment, Alex [address] [place] [phone] Neisha, Chair 9 Hem Onc Scenery [address] [place] [address] 11/15/2023 11:30 AM EDT Office Visit Urology, [facility] 132 [facility] [place] [phone] Adolfo Key MD [address] [place] [address] Scheduled Procedures Name Priority Associated Diagnoses Date/Ti [...] - PCV) 05/10/2022 05/10/2021 GFR 09/05/2024 09/06/2023, 0301/2024, 08/22/2023, Additional history exists Albumin/Creatinine Ratio 09/14/2025 [...] this encounter Medical Devices Implanted Type Area Pantograph Watcher Device Identifier Shelf Expiration Date Model / Serial / Lot Port Implant W/8f Poly Cath - [id number] Implanted:Qty : 1 on 12/01/2022 by Brad Cerda DO at OR [facility] Right: Chest CR BARD : PERIPHERAL VASCULAR [id number] 02/24/2024 [id number] / / [id number] System Urolift - [id number] Implanted:Qty : 6 on 05/31/2023 by Adolfo Key MD at OR [facility] [employer] 09/01/2023 [id number] / / [id number] Description:prostate documented as of this encounter Advance Directives Documents on File Type Date Recorded Patient Lineman A Class Expl anation POLST 07/13/2023 4:08 PM POLST [...] Discussed due to patient's condition Care Teams Terminal Operations Supervisor Relationship Specialty Start Date End Date Ray Royal MD [address] [place] [address] [place] [phone] PCP - General Family Medicine 10/22/18 documented as of this encounter
--- OUTSIDE RECORDS SUMMARY | 2023-09-20 05:42 | External Medical Summary | Summary of Care ---
Author Name Unknown Organization [facility] Address [address] [place] [address] Phone [phone] Care Team Providers Care Conveyor Maintenance Mechanic Name Role Phone Ray Royal MD Primary Care Provider [phone] Reason for Visit * Reason Comments Follow Up Encounter Details Date Type Department Care Team (Late st Contact Info) Description 09/06/2023 2:00 PM EDT Office Visit Palliative Medicine [facility] [address] [place] [address] Shante Prado MD [address] [place] [address] Cancer related pain* Allergies No known active allergiesdocumented as of this encounter (statuses as of 09/06/2023) Medications Medication Sig Dispensed Refills Start Date End Date Status Diclofenac Sodium 50 MG Oral Tablet Delayed Release (Voltaren)Indicati ons:Idiopathic chronic gout of multiple sites without tophus,Primary osteoarthritis of both knees TAKE ONE TABLET BY MOUTH THREE TIMES DAILY NEEDED WITH FOOd FOR PAIN 60 Tablet 5 2 Active Aspirin 81 MG Oral Tablet Delayed Release Take 1 Tablet by mouth in the morning. 0 Active dilTIAZem HCl 120 MG Oral TabletIndications: Essential hypertension with goal blood pressure less than 140/90,Primary hypertension TAKE ONE TABLET BY MOUTH EVERY DAY 90 Tablet 3 3 Active Allopurinol 300 MG Oral Tablet (Zyloprim)Indicati ons:Idiopathic chronic gout of multiple sites without tophus Take 1 Tablet by mouth in the morning. 90 Tablet 4 3 Active Omeprazole 20 MG Oral Capsule Delayed Release (PriLOSEC)Indicati ons:Epigastric pain TAKE ONE CAPSULE BY MOUTH DAILY ONE HOUR BEFORE FIRST MEAL OF THE DAY 90 Capsule 2 3 Active Lisinopril 10 MG Oral Tablet (Prinivil)Indicati ons:Essential hypertension with goal blood pressure less than 140/90,Primary hypertension TAKE ONE TABLET BY MOUTH EVERY DAY 90 Tablet 2 3 Active Ondansetron HCl 8 MG Oral Tablet (Zofran)Indication s:Adenocarcinoma of pancreas (HCC),Metastasis to liver (HCC) Take 1 Tablet by mouth every 8 hours as needed for Nausea. 30 Tablet 3 3 Active Prochlorperazine Maleate 10 MG Oral Tablet (Compazine)Indicat ions:Adenocarcinom a of pancreas (HCC),Metastasis to liver (HCC) Take 1 Tablet by mouth every 6 hours as needed for Nausea. 30 Tablet 3 3 Active Loratadine 10 MG Oral Tablet (Claritin)Indicati ons:Adenocarcinoma of pancreas (HCC),Metastasis to liver (HCC) Take 1 tablet daily for 5 days starting the day before udenyca injection 30 Tablet 1 3 Active Finasteride 5 MG Oral Tablet (Proscar)Indicatio ns:BPH with obstruction/lower urinary tract symptoms Take 1 Tablet by mouth in the morning. 90 Tablet 3 3 Active Magnesium Oxide -Mg Supplement 400 (240 Mg) MG Oral Tablet (Mag-Ox)Indication s:Hypomagnesemia Take 1 Tablet by mouth in the morning. 30 Tablet 2 3 Active Loperamide HCl 2 MG Oral Capsule (Imodium)Indicatio ns:Adenocarcinoma of pancreas (HCC),Metastasis to liver (HCC) Take 2 tablets after the first episode of diarrhea each day and 1 tablet after each subsequent episode. Can take up to 8 tablets in a 24 hours time period. 60 Capsule 1 3 Active Potassium Chloride ER 10 MEQ Oral Tablet Extended ReleaseIndications :Hypokalemia,Adeno carcinoma of pancreas (HCC),Metastasis to liver (HCC) Take 1 Tablet by mouth in the morning and 1 Tablet before bedtime. 60 Tablet 3 3 Active Mirtazapine 30 MG Oral Tablet (Remeron) [...] urinary burning and urgency. 18 Tablet 0 3 Active Silodosin 8 MG Oral Capsule (Rapaflo)Indicatio ns:BPH with obstruction/lower urinary tract symptoms Take 1 Capsule by mouth in the morning. 30 Capsule 6 4 Active Baclofen 10 MG Oral Tablet (Lioresal)Indicati ons:Cancer related pain Take 1 Tablet by mouth 2 times a day as needed for Muscle spasms. 30 Tablet 0 4 Active Ondansetron HCl 8 MG Oral TabletIndications: Adenocarcinoma of pancreas (HCC),Metastasis to liver (HCC) Take 1 Tablet by mouth every 8 hours as needed for Nausea. 30 Tablet 3 4 Active Prochlorperazine Maleate 10 MG Oral Tablet (Compazine)Indicat ions:Adenocarcinom a of pancreas (HCC),Metastasis to liver (HCC) Take 1 Tablet by mouth every 6 hours as needed for Nausea. 60 Tablet 2 4 Active Senna 8.6 MG Oral TabletIndications: Constipation due to pain medication Take 2 Tablets by mouth at bedtime. 60 Tablet 0 4 Active Polyethylene Glycol 3350 17 GM/SCOOP Oral Powder (MiraLax)Indicatio ns:Constipation due to pain medication Take 17 g by mouth in the morning. 255 g 0 4 Active oxyCODONE HCl 10 MG Oral Tablet (Roxicodone)Indica tions:Cancer related pain Take 1 Tablet by mouth every 4 hours as needed for Pain, Severe. 60 Tablet 0 4 Active oxyCODONE HCl 10 MG Oral Tablet (Roxicodone)Indica tions:Cancer related pain Take 1 Tablet by mouth every 4 hours as needed for Pain, Severe. 60 Tablet 0 4 09/06/19 24 Discontinued(Re fill) Morphine Sulfate ER 30 MG Oral Tablet Extended Release (Ms Contin) Take 1 Tablet by mouth in the morning and 1 Tablet before bedtime. 30 Tablet 0 4 09/06/19 24 Discontinued documented as of this encounter (statuses as [...] mRNA, LNP-s, No Pre serve, 2-Dose Series ([employer]) 02/23/2021,02/02/2021 HEP A - Hepatitis A (Adult > 18 yrs) 09/21/2020, 02/10/2020 Hepatitis B, 20+ yrs 09/21/2020,03/23/2020,02/09 Pneumococcal Conjugate Vacci ne, 20-valent ([id number]) 10/26/2022(Deferred: Patient Refused) Pneumococcal Polysaccharide PPV23 (Pneumovax) [...] Sign Reading Time Taken Comments Blood Pressure 124/75 09/06/2023 1:34 PM EDT Pulse 83 09/06/2023 1:34 PM EDT Temperature 38.3 C (100.9 F) 09/06/2023 1:34 PM E DT Respiratory Rate - - Oxygen Saturation 98% 09/06/2023 1:34 PM EDT Inhaled Oxygen Concentration - - Weight 113.2 kg (249 lb 9 oz) 09/06/2023 1:34 PM EDT Height - - Body Mass Index 31.19 05/31/2023 10:31 AM EST documented in this encounter Patient Instructions * Patient Instructions* Mariana Michele LPN - 09/06/2023 1:34 PM EDT Our Palliative Medicine Clinic is available Monday through Monday during business hours, so we are unavailable on weekends and holidays. Please ensure that you request refills early in the week as itmay take 1-2 days for them to be addressed and filled, for authorizations to be approved, or for the pharmacy to order them if needed. You can contact our office at [phone], which is our clinic in [place], or you can message us on [employer]. If you have an emergency outside of these hours, we recommend calling your primary care clinic, Oncology office, or going to the ER if you have a medical emergency. documented in this encounter Progress Notes * Shante Prado MD - 09/06/2023 2:17 PM EDT Palliative Medicine Outpatient Progress Note [facility] Palliative Medicine Outreach [address] [place] [address] Name: Brad Holm Date: 09/06/2023 HPI: Brad Holm is a 63 year old male with pancreatic tail adenocarcinoma seen in follow-up for goals of care and symptom management. Had restarted MS Contin 30mg BID but unclear what he is taking Weight down 10lb from 3 days ago He reports he is still having pain in shoulder Palliative ROS: Confusion: Yes - seems confused about pain regimen, which is unusual for him Sleep: can't sleep due to pain Examination: BP 124/75 | Pulse 83 | Temp (!) 38.3 C (100.9 F) | Wt 113.2 kg (249 lb 9 oz) | SpO2 98% | BMI 31.19 kg/m | BSA 2.45 m Constitutional: no acute distress, chronically ill HENT: normocephalic, atraumatic. Eyes: anicteric, sclera and conjunctiva normal. Neck: no stridor Chest: normal respiratory effort Abdominal: nondistended Extremities: no edema, tremulous Data Review: External notes reviewed: - Reviewed notes from Dr Torrez today - plan is to get a brain MRI, the are stopping one agent and now doing gemcitabine chemo for 2 weeks then 1 week off Lab / Imaging Results: K+ 5.4 from today, elevated, Albumin 3.1, low, AST and ALT are normal but Alk Phos is elevated at 246 Information obtained from patients brother Gustavo for collateral history Discussion with other team members: I discussed patient with Dr Torrez about his current situation Decision-making Capacity: Does Patient have Decisional Capacity? Limited Does Patient have a Healthcare Agent? Yes, Advanced Care Planning (see ACP Tab): AD in EMR: no POLST in EMR: Yes, DNR LIMITED from 07/12/23 ASSESSMENT/PLAN: Brad Holm is a 63 year old male seen in follow-up for goals of care and pain and symptom management. Pancreatic cancer - Pending brain MRI today - Getting chemo today - Reviewed w/Gustavo in waiting room that if Brad seems any worse in any way, they should go to the ER Cancer related pain - Stop MS Contin - Use oxycodone 10mg q4h PRN pain - will send refill of just this - I have reviewed the patients controlled substance dispensing history in the Prescription Drug Monitoring Program in compliance with the [facility] regulations before prescribing a controlled substance. Follow up in 1-2 weeks I spent a total of 35 minutes on the date of service in preparation, delivery, and documentation ofthe care provided to Brad Holm. Shante Prado MD Palliative Medicine Physician [facility] Office: [phone] 09/06/2023 * Mariana Michele LPN - 09/06/2023 1:34 PM EDT TBS in infusion center documented in this encounter Plan of Treatment Upcoming Encounters Date Type Department Care Team (Late st Contact Info) Description 11/15/2023 11:30 AM EDT Office Visit Urology, [facility] 132 [facility] [place] [address] Adolfo Key MD 27 [facility] [address] [place] [address] Scheduled Procedures Name Priority Associated Diagnoses Date/Ti [...] - PCV) 05/10/2022 05/10/2021 GFR 09/05/2024 09/06/2023, /01/2024, 08/22/2023, Additional history exists Albumin/Creatinine Ratio 09/14/2025 [...] this encounter Medical Devices Implanted Type Area Motorcycle Service Technician Device Identifier Shelf Expiration Date Model / Serial / Lot Port Implant W/8f Poly Cath - [id number] Implanted:Qty : 1 on 12/01/2022 by Brad Cerda, DO at OR [facility] Right: Chest CR BARD : PERIPHERAL VASCULAR [id number] 02/24/2024 [id number] / / [id number] System Urolift - [id number] Implanted:Qty : 6 on 05/31/2023 by Adolfo Key MD at OR 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
--- OUTSIDE RECORDS SUMMARY | 2023-09-20 05:42 | External Medical Summary | Summary of Care ---
Author Name Unknown Organization [facility] Address [address] [place] [address] Phone [phone] Care Team Providers Care Railroad Track Mechanic Name Role Phone Ray Royal MD Primary Care Provider [phone] Encounter Details Date Type Department Care Team (Late st Contact Info) Description 09/08/2023 Orders Only Hematology/Oncology [place] Shawanda Crespo [address] [facility] [place] [phone] Teto Torrez [facility] [address] Adenocarcinoma of pancreas (HCC)*; Metastasis to liver (HCC); Hepatic encephalopathy (HCC) Allergies No known active allergiesdocumented as of this encounter (statuses as of 09/08/2023) Medications Medication Sig Dispensed Refills Start Date [...] as of this encounter (statuses as of 09/08/2023) Active Problems Problem Noted Date Diagnosed Date [...] as of this encounter (statuses as of 09/08/2023) Immunizations Name Administration Dates Next Due COVID-19 mRNA, LNP-s, No Pre serve, 2-Dose Series ([employer]) 02/23/2021,02/02/2021 HEP A - Hepatitis A (Adult > 18 yrs) 09/21/2020, 02/10/2020 Hepatitis B, 20+ yrs 09/21/2020,03/23/2020,02/09 Pneumococcal Conjugate Vacci ne, 20-valent ([id number]) 10/26/2022(Deferred: Patient Refused) Pneumococcal Polysaccharide PPV23 (Pneumovax) [...] of Alcohol Consumption 2-3 times a kris k 10/22/2018 Average Number of Drinks Not [...] Progress Notes * Teto Torrez MD - 09/08/2023 4:57 PM EDT -Ammonia level --> 59 (09/06/2023) I spoke with him on the phone, he says that overall he is stable, has some loose stool I told him that ammonia level is high which is likely the cause of the jerky body movements. Would like to start lactulose 30 mL every day and see how he does. ( e-prescribed). documented in this encounter Plan of Treatment Upcoming Encounters Date Type Department Care Team (Late st Contact Info) Description 09/13/2023 1:00 PM EDT [facility] [place] [address] [place] [phone] [place] [address] 09/13/2023 2:00 PM EDT Hem/Onc Treatment Hematology/Oncology Treatment, [place] [address] [place] [phone] Neisha, Chair 6 Hem Onc [facility] [address] [place] [address] 09/18/2023 1:45 PM EDT Imaging Radiology [address] [place] [address] 09/27/2023 12:50 PM EDT Laboratory [facility] [place] [address] [place] [phone] Neisha, Lab [place] [address] [place] [address] 09/27/2023 2:00 PM EDT Hem/Onc Treatment [facility]ematology[facility]cology [facility], [place] [facility] [phone] Neisha, Chair 1 Hem Onc [place] [address] [place] [address] 10/04/2023 1:00 PM EDT Laboratory Laboratory [facility] Neisha [place] [address] [place] [phone] Neisha, Lab [place] [address] [place] [address] 10/04/2023 2:00 PM EDT Hem/Onc Treatment Hematology/Oncology Treatment, [place] [address] [place] [address] Neisha, Chair 10 Hem Onc [place] [address] [place] [address] 10/10/2023 12:45 PM EDT Imaging Radiology [facility], [place] [address] [facility] [place] [address] 10/19/2023 10:30 AM EDT Laboratory Laboratory [facility] Neisha [place] [address] [place] [phone] Neisha, Lab [place] [address] [place] [address] 10/19/2023 11:00 AM EDT Office Visit Hematology/Oncology [place], [place] 200 [facility] [place], [place] [phone] Rachel Marina CRNP [address] [facility] [place] [id number] 10/19/2023 11:30 AM EDT [facility], [place] [phone] Neisha, Chair 11 Hem Onc [place] [address] [facility] [place] [address] 10/26/2023 12:50 PM EDT Laboratory Laboratory [facility] [address] [facility] [place] [phone] Neisha, Lab [address] [facility] [place] [address] 10/26/2023 2:00 PM EDT [facility] [address] [facility], [place] [phone] Neisha, Chair 9 Hem Onc [facility] [address] [facility] [place] [address] 11/15/2023 11:30 AM EDT Office Visit Urology, [facility] [address] [facility] [place] [address] Adolfo Key MD [address] [place] [address] [place] [address] Scheduled Procedures Name Priority Associated Diagnoses Date/Ti [...] this encounter Medical Devices Implanted Type Area Cash Register Repairer Device Identifier Shelf Expiration Date Model / Serial / Lot Port Implant W/8f Poly Cath - [id number] Implanted:Qty : 1 on 12/01/2022 by Brad Cerda DO at OR [facility] Right: Chest CR BARD : PERIPHERAL VASCULAR [id number] 02/24/2024 [id number] / / [id number] System Urolift - [id number] Implanted:Qty : 6 on 05/31/2023 by Adolfo Key MD at OR [facility] [employer] 09/01/2023 [id number] / / [id number] Description:prostate documented as of this encounter Visit Diagnoses Diagnosis Adenocarcinoma of pancreas (HCC)- Primary Malignant neoplasm of pancreas, part unspecified Metastasis to liver (HCC) Secondary malignant neoplasm of liver Hepatic encephalopathy (HCC) Hepatic encephalopathy documented in this encounter Advance Directives Documents on File Type Date Recorded 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
--- OUTSIDE RECORDS SUMMARY | 2023-09-20 05:42 | External Medical Summary | Summary of Care ---
Author Name Unknown Organization [facility] Address [address] [place] [address] Phone [phone] Care Team Providers Care Costing Analyst Name Role Phone Ray Royal MD Primary Care Provider Reason for Referral * Precert (Within 10 days (routine)) - Pending Review Specialty Diagnoses / Procedures Referred By Contac t Referred To Contact Radiology Diagnoses Adenocarcinoma of pancreas (HCC) Metastasis to liver (HCC) Procedures PET CT SKULL BASE TO MID-THIGH FDG Teto Torrez MD [address] [place] [address] Referral ID Status Reason Start Date Expiration Date V isits Requested Visits Authorized [id number] Pending Review 09/06/2023 999 999 * Precert (Within 10 days (routine)) - Pending Review Specialty Diagnoses / Procedures Referred By Contac t Referred To Contact Radiology Diagnoses Adenocarcinoma of pancreas (HCC) Metastasis to liver (HCC) Jerky body movements Procedures MRI BRAIN W WO CONTRAST Teto Torrez MD [address] [place] [address] Referral ID Status Reason Start Date Expiration Date V isits Requested Visits Authorized [id number] Pending Review 09/06/2023 999 999 Reason for Visit * Reason Comments Chemotherapy Chemotherapy * Evaluate & Treat - Unlimited Visits (Within 30 days (routine)) - Authorized Specialty Diagnoses / Procedures Referred By Contac t Referred To Contact Hematology Oncology Diagnoses Gallbladder cancer (HCC) Procedures Eval/Treat Anabell Driver PA-C [address] [place] [address] Referral ID Status Reason Start Date Expiration Date Visits Requested Visits Authorized [id number] Authorized Specialty Services Required 12/01/2022 12/06/2023 999 999 Encounter Details Date Type Department Care Team (Latest Contact Info) Description 09/06/2023 1:15 PM EDT Office Visit Hematology/Oncology [place] [facility] Crespo [address] [facility] [place] [phone] Teto Torrez MD [address] [facility] [place] [address] Adenocarcinoma of pancreas (HCC)*; Metastasis to liver (HCC); Jerky body movements Allergies No known active allergiesdocumented as of [...] mRNA, LNP-s, No Pre serve, 2-Dose Series (Catchafire) 02/23/2021,02/02/2021 HEP A - Hepatitis A (Adult > 18 yrs) 09/21/2020, 02/10/2020 Hepatitis B, 20+ yrs 09/21/2020,03/23/2020,02/09 Pneumococcal Conjugate Vacci ne, 20-valent ([id number]) 10/26/2022(Deferred: Patient Refused) Pneumococcal Polysaccharide PPV23 (Pneumovax) 05/10/2021 Seasonal Influenza, PF, 6 M & above, IM , (FluLaval or Fluzone) 03/13/2023,03/24/2022,05/10/2021,05/24 TDAP (age 10 and older)(Boostrix) 11/12/2021,11/2018 Zoster Vaccine Recombinant (Shingrix) 11/02/2020 ,09/30/2019 documented as of this encounter Social History Tobacco Use Types Packs/Day Years Used Date Smoking Tobacco: Former Cigarettes Q uit: 10/2022 Smokeless Tobacco: Former Tobacco Cessation:Counseling Given: Not Answered Alcohol Use Standard Drinks/Week Comments Not Currently [...] Time Taken Comments Blood Pressure 124/75 09/06/2023 1:32 PM EDT Pulse 83 09/06/2023 1:32 PM EDT Temperature 38.3 C (100.9 F) 09/06/2023 1:32 PM E DT Respiratory Rate - - Oxygen Saturation 98% 09/06/2023 1:32 PM EDT Inhaled Oxygen Concentration - - Weight 113.2 kg (249 lb 8 oz) 09/06/2023 1:32 PM EDT Height - - Body Mass Index 31.19 05/31/2023 10:31 AM EST documented in this encounter Progress Notes * Teto Torrez MD - 09/06/2023 1:15 PM EDT Hematology/Oncology Outpatient Clinic note [facility] [place] [address] [facility] [place] [address] Name: Brad Holm Date: 04/24/2023 CHIEF COMPLAINT: Brad Holm is a 63 year old male here today for f/u visit today. 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 Will hold phlebotomy for now. ( Ferritin level was around 80 ( 09/14/2022). NGS (10/26/2022) -TMB 3.7 which is on the lower side -MSI stable -negative for HRD -KRAS G12 D mutation positive -CDKN2A copy number loss is detected He had C difficile colitis.(03/2023) DATE OF DIAGNOSIS: 10/03/22 CURRENT TREATMENT: - Single agent gemcitabine 1000 mg/m weekly x2 followed by 1 week off.( Started on 07/18/2023 ). 09/06/2023 --> he is here for cycle 3 day 1 COMPLETED TREATMENT modified FOLFIRINOX.every 14 days (12/06/2022 -05/23/2023-) Now since 06/06/2023, he is receiving 5-Fluorouracil, leucovorin irinotecan chemotherapy. ( every 2weekly) - Last chemo on 07/05/2023. -discontinued because of disease progression in the liver and pancreas DIAGNOSTIC WORKUP: He had upper abdominal pain, abnormal liver function test, elevated lipase level, he was evaluated at [facility], had a CT scan of the abdomen pelvis done on 08/08/2022: -ill-defined hypodense lesion involving the pancreatic tail measuring 2.8 x 2.3 x 2.5 cm. Liver showed hepatic steatosis, no masses identified MRI MRCP done on 08/09/2022 at [facility]: -likely pancreatitis with suspected pancreatic tail lesion. -no Biliary ductal dilatation. -hepatic steatosis, splenomegaly. Spleen size measuring 17.5 cm -no focal liver abnormality noted Because of abdominal pain, he was seen at [facility] ER on the following day. CT scan of the abdomen and pelvis with contrast on 08/10/2022 at [facility]: - 1. Subtle stranding adjacent to the pancreatic tail. This favors acute pancreatitis. 3.5 x 2.6 cm hypodense mass-like abnormality within the pancreatic tail. Although this could be related to acute pancreatitis, the appearance raises the possibility of an underlying pancreatic neoplasm, particularly given narrowing of a branch of the splenic vein. Consideration for EUS guided biopsy is recommended. 2. No biliary or pancreatic ductal dilatation. 3. Hepatic steatosis. 4. Borderline splenomegaly. Upper GI endoscopic EUS (10/03/2022: -3.8 cm mass in the pancreatic tail. T2 N0 Biopsy from the pancreatic tail mass --> adenocarcinoma. CT chest ( 10/24/2022) --> negative for metastatic disease. he was evaluated by Dr. Howard, underwent diagnostic laparoscopy , liver wedge resection ( 10/26/2022), Small lesion approximately 1cm in the left liver that was suspicious. This was resected and sent for frozen section and found to be carcinoma. Due to the metastatic disease the operation was aborted Biopsy from the liver mass --> consistent metastatic adenocarcinoma. (10/26/2022). PET-CT scan (11/22/2022). 1. 4.7 x 2.7 cm metabolically-active mass involving the distal pancreatic body and tail, consistentwith biopsy-proven malignancy. 2. Multiple metabolically-active liver metastases. 3. Metabolically-active wall thickening of the cecum at the ileocecal valve, concerning for colonicmalignancy. Further evaluation can be obtained with colonoscopy and biopsy. 4. Small left upper abdominal omental infarct status post recent surgery. OTHER IMPORTANT HISTORY: - Hypertension, gout, GERD. -BPH Interval History: PET/CT 01/31/23: IMPRESSION 1. Slight decrease in activity of the pancreatic mass, though there appears to be increased involvement of the adjacent stomach. 2. Decreased but persistent activity associated with hepatic metastases. 3. No new hypermetabolic lesions. HISTORY OF PRESENT ILLNESS: He has come the clinic for the follow-up accompanied by his brother in the office Overall lately he has not doing quite well, she does complain of intermittent pain in the right upper quadrant, he takes MS Contin 30 mg every 12 hourly and oxycodone for the breakthrough pain, lately he has seen increasing jerky movements of the extremities, he says that he has not anxious, deniesany increasing headache, no focal neurological weakness, has some trouble in the ambulation becauseof some jerky movements of the extremities, no diarrhea, no blood in the stool, no bleeding from the sites, weight loss noted, current weight around 249 lb. No New cardiac or pulmonary symptoms. He also has underlying BPH, he was seen by Dr. Key, he had UroLift procedure on 05/31/2023. He is on oral magnesium supplementation on a regular basis. Past Medical History: Diagnosis Date Adenocarcinoma of pancreas (HCC) 10/10/2022 Blood type A+ BMI 36.0-36.9,adult Chronic right shoulder pain 05/24/2019 Clostridium difficile infection 05/03/2023 reported by pt. States he finished 10 days of vancomycin. COVID-19 12/03/2021 COVID-19 08/22/2022 Encounter for hepatitis C screening test for low risk patient 10/22/2018 negative Hemochromatosis 11/13/2019 heterozygous C 282Y positive Hepatic steatosis 09/13/2019 Idiopathic chronic gout of multiple sites without tophus 02/01/2019 Monoallelic mutation of HFE gene 01/10/2020 Pancreatitis 08/08/2022 also possible pancreatic mass on CT Pneumonia 04/04/2023 admitted [facility] Portal hypertension with esophageal varices (HCC) 11/19/2019 Primary hypertension Primary osteoarthritis of both knees 03/15/2020 Trigger middle finger of right hand Venous stasis dermatitis of both lower extremities 03/13/2023 Past Surgical History: Procedure Laterality Date COLONOSCOPY, DIAGNOSTIC (RECTUM) 01/21/2019 serrated adenomatous polyp, fair prep, repeat 1 yr/COLONOSCOPY FLEXIBLE PROXIMAL DIAGNOSTIC performed by Sailaja Gutiérrez MD at ENDOSCOPY [facility] COLONOSCOPY, DIAGNOSTIC (RECTUM) 04/17/2020 diverticulosis, repeat 2 yrs / COLONOSCOPY FLEXIBLE PROXIMAL DIAGNOSTIC performed by Conrado Morales MD at ENDOSCOPY [facility] COLONOSCOPY, DIAGNOSTIC (RECTUM) 01/03/2023 normal, repeat 5 years, performed by Sailaja Gutiérrez MD at ENDOSCOPY [facility] CYSTOURETHROSCOPY, W/ TRANSPROSTATIC IMPLANT N/A 05/31/2023 CYSTOURETHROSCOPY, WITH INSERTION OF PERMANENT ADJUSTABLE TRANSPROSTATI IMPLANT; SINGLE IMPLANT performed by Adolfo Key MD at OR [facility] ECHO, COMPLETE (2D), TRANS-THORACIC N/A 01/21/2020 normal LV size and function, EF 60-64%, LAE suggests LV diastolic dysfunction EGD, FLEXIBLE, DIAGNOSTIC 11/19/2019 acid reflux / ESOPHAGOGASTRODUODENOSCOPY (EGD), FLEXIBLE, TRANSORAL, DIAGNOSTIC performed by MD Diego at ENDOSCOPY [facility] EGD, W/ENDOSCOPIC US 11/19/2019 moderate steatohepatitis, GB polyp, enlarged lymph node / ESOPHAGOGASTRODUODENOSCOPY (EGD), FLEXIBLE, TRANSORAL, ENDOSCOPIC ULTRASOUND performed by Conrado Morales MD at ENDOSCOPY [facility] EGD, W/ENDOSCOPIC US 10/03/2022 pancreas adenocarcinoma, fatty liver, GB polyps / ESOPHAGOGASTRODUODENOSCOPY (EGD), FLEXIBLE, TRANSORAL, ENDOSCOPIC ULTRASOUND performed by Conrado Morales MD at ENDOSCOPY [facility] INSER TUNN ACC DEV;5 YRS/OLDER Right 12/01/2022 INSERT TUNNELED CENTRAL VENOUS ACCESS WITH SUBQ PORT performed by Bard Cerda DO at OR [facility] PARTIAL REMOVAL OF PANCREAS N/A 10/26/2022 LAPAROSCOPIC PANCREATECTOMY DISTAL SUBTOTAL performed by Jordan Howard MD at OR [facility] [place] [facility] [place] US ABDOMEN DOPPLER LIMITED 06/21/2019 mild hepatomegaly and steatosis, GB polyp and /or sludge, GB wall not thickened US ENDOSCOPIC 10/03/2022 38 mm pancreatic mass, GB polyp Social History Socioeconomic History Marital status: Spouse name: Not on file Number of children: Not on file Years of education: Not on file Highest education level: Not on file Occupational History Not on file Tobacco Use Smoking status: Former Current packs/day: 0.00 Types: Cigarettes Quit date: 10/2022 Years since quittin.8 Smokeless tobacco: Former Vaping Use Vaping Use: Never used Substance and Sexual Activity Alcohol use: Not Currently Comment: none since October 2022 Drug use: No Sexual activity: Not on file Other Topics Concern Not on file Social History Narrative Not on file Social Determinants of Health Financial Resource Strain: Not on file Food Insecurity: Food Insecurity Present (06/02/2023) Hunger Vital Sign Worried About Running Out of Food in the Last Year: Sometimes true Ran Out of Food in the Last Year: Sometimes true Transportation Needs: Not on file Physical Activity: Not on file Stress: Not on file Social Connections: Not on file Intimate Partner Violence: Not on file Housing Stability: Not on file Review of patient's allergies indicates: No Known Allergies Current Outpatient Medications Medication Sig Dispense Refill Diclofenac Sodium 50 MG Oral Tablet Delayed Release (Voltaren) TAKE ONE TABLET BY MOUTH THREE TIMESDAILY NEEDED WITH FOOd FOR PAIN 60 Tablet 5 Aspirin 81 MG Oral Tablet Delayed Release Take 1 Tablet by mouth in the morning. dilTIAZem HCl 120 MG Oral Tablet TAKE ONE TABLET BY MOUTH EVERY DAY 90 Tablet 3 Allopurinol 300 MG Oral Tablet (Zyloprim) Take 1 Tablet by mouth in the morning. 90 Tablet 4 Omeprazole 20 MG Oral Capsule Delayed Release (PriLOSEC) TAKE ONE CAPSULE BY MOUTH DAILY ONE HOUR BEFORE FIRST MEAL OF THE DAY 90 Capsule 2 Lisinopril 10 MG Oral Tablet (Prinivil) TAKE ONE TABLET BY MOUTH EVERY DAY 90 Tablet 2 Ondansetron HCl 8 MG Oral Tablet (Zofran) Take 1 Tablet by mouth every 8 hours as needed for Nausea. 30 Tablet 3 Prochlorperazine Maleate 10 MG Oral Tablet (Compazine) Take 1 Tablet by mouth every 6 hours as needed for Nausea. 30 Tablet 3 Loratadine 10 MG Oral Tablet (Claritin) Take 1 tablet daily for 5 days starting the day before udenyca injection 30 Tablet 1 Finasteride 5 MG Oral Tablet (Proscar) Take 1 Tablet by mouth in the morning. 90 Tablet 3 Magnesium Oxide -Mg Supplement 400 (240 Mg) MG Oral Tablet (Mag-Ox) Take 1 Tablet by mouth in the morning. 30 Tablet 2 Loperamide HCl 2 MG Oral Capsule (Imodium) Take 2 tablets after the first episode of diarrhea each day and 1 tablet after each subsequent episode. Can take up to 8 tablets in a 24 hours time period. 60 Capsule 1 Potassium Chloride ER 10 MEQ Oral Tablet Extended Release Take 1 Tablet by mouth in the morning and1 Tablet before bedtime. 60 Tablet 3 Mirtazapine 30 MG Oral Tablet (Remeron) Take 0.5 Tablets by mouth at bedtime. Dextromethorphan Polistirex ER 30 MG/5ML Suspension Extended Release (Robitussin 12 Hour Cough) Take by mouth every 8 hours. As needed Probiotic Acidophilus Oral Tablet Chewable Take by mouth daily. Tamsulosin HCl 0.4 MG Oral Capsule (Flomax) Take 1 Capsule by mouth every night at bedtime. Phenazopyridine HCl 200 MG Oral Tablet (Pyridium) Take 1 Tablet by mouth 3 times a day after meals as needed for urinary burning and urgency. 18 Tablet 0 Silodosin 8 MG Oral Capsule (Rapaflo) Take 1 Capsule by mouth in the morning. 30 Capsule 6 Baclofen 10 MG Oral Tablet (Lioresal) Take 1 Tablet by mouth 2 times a day as needed for Muscle spasms. 30 Tablet 0 Ondansetron HCl 8 MG Oral Tablet Take 1 Tablet by mouth every 8 hours as needed for Nausea. 30 Tablet 3 Prochlorperazine Maleate 10 MG Oral Tablet (Compazine) Take 1 Tablet by mouth every 6 hours as needed for Nausea. 60 Tablet 2 Senna 8.6 MG Oral Tablet Take 2 Tablets by mouth at bedtime. 60 Tablet 0 Polyethylene Glycol 3350 17 GM/SCOOP Oral Powder (MiraLax) Take 17 g by mouth in the morning. 255 g0 oxyCODONE HCl 10 MG Oral Tablet (Roxicodone) Take 1 Tablet by mouth every 4 hours as needed for Pain, Severe. 60 Tablet 0 Morphine Sulfate ER 30 MG Oral Tablet Extended Release (Ms Contin) Take 1 Tablet by mouth in the morning and 1 Tablet before bedtime. 30 Tablet 0 No current facility-administered medications for this visit. REVIEW OF SYSTEMS: See HPI - otherwise negative OBJECTIVE: BP 124/75 (BP Site: Right Arm, BP Position: Sitting, BP Cuff Size: Regular) | Pulse 83 | Temp (!) 38.3 C (100.9 F) (Tympanic) | Wt 113.2 kg (249 lb 8 oz) | SpO2 98% | BMI 31.19 kg/m | BSA 2.45 m PHYSICAL EXAM: ECOG: Performance Status 1 = 80-90% Symptoms but nearly ambulatory General Appearance: No acute distress HEENT: +oral thrush Lymph Nodes: Normal - No palpable lymph nodes in the neck or supraclavicular areas Lungs/Thorax: Normal - Clear to auscultation Heart: Normal - Regular rate and rhythm, normal S1, S2, no appreciable murmurs, rubs, gallops Extremities: +1 RLE edema Abdomen: Normal - Soft, nontender, bowel sounds present, no appreciable hepatosplenomegaly, no palpable masses Neurologic: Normal - Grossly intact LABS: Blood workup done on 09/01/2023: -albumin 3.5, total testosterone 125, free testosterone--> 7.6 which is low -bioavailable testosterone --> 14.6 which is low -FSH --> 23.6 which is high. -LH --> 18.6 which is high. -prolactin--> 38.2. -TSH --> 2.0. Blood workup done on 09/06/2023: - WBC 71044, H&H of 10.4/33.4, Platelet count of 217239 - ANC 9500. - BUN/Creat: 26/0.9, sodium 132, potassium 5.4 -AST 45, ALT 16, alkaline phosphatase 246, bilirubin level 1.0. CT scan of the abdomen and pelvis (05/03/2023) 1. 4.6 cm pancreatic tail mass suggestive of primary pancreatic adenocarcinoma. 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 Additionally, the mass abuts the adjacent splenic artery with abutment and possible invasion into the greater curvature of the stomach. 2. Hepatic and probable lymphatic metastasis. 3. Subsegmental right lower lobe opacities, likely infectious or inflammatory. 4. Nonspecific rectal wall thickening with adjacent perirectal stranding. Findings may represent a nonspecific proctitis however should be correlated with colonoscopy. CT scan of the abdomen pelvis done on 07/02/2023: (at [facility]). 1. No significant change since prior CT of June 18, 2023. Stable pancreatic tail mass and multiple hepatic metastases. No new hepatic lesions. 2. No bowel obstruction. No bowel wall thickening. Normal appendix. 3. Stable splenomegaly. Redemonstration of splenic vein occlusion with collaterals, unchanged. PET-CT scan done on 07/07/2023: -1. Similar size and activity of the pancreatic mass with persistent involvement of the adjacent stomach. 2. Increasing size of hepatic metastases with similar metabolic activity. 3. No new FDG avid lesions. IMPRESSION/PLAN: Pancreatic tail adenocarcinoma with liver metastasis Encounter for chemotherapy Hypomagnesemia I reviewed with him and his regarding the recent the [facility] CT scan findings of the abdomen, reviewed the blood workup done yesterday, so far he is received 11 cycles of modified FOLFIRINOX chemotherapy, overall stable findings noted , then we discontinued oxaliplatin because of neuropathy symptoms Currently he is receiving 5-Fluorouracil, leucovorin irinotecan combination last treatment was received in week of June 2023 PET-CT scan done on 07/07/2023, overall disease progression noted in the liver, Now since 07/18/2023, he is on single agent gemcitabine, weekly x2 followed by 1 week off. Today he has come to the clinic for the cycle 3 day 1 chemotherapy. Overall he has not doing quite well, has increasing jerky movements of the extremities, some trouble in the ambulation, intermittent pain in the right upper quadrant, he takes MS Contin 30 mg every 12 hourly oxycodone for the breakthrough pain, he denies significant anxiety at this time, denies any increasing headache I would like to get brain MRI to rule out brain metastatic disease. Will check ammonia level. Reviewed blood workup done today, overall stable blood workup, potassium is slightly on the higher side, advised him to discontinue potassium supplementation. Will get PET-CT scan in about 5 to 6 weeks' time. Will see him in about [address] Teto Torrez Hem/Onc (This note was completed using the dictation program Fluency Direct. As such, there may be misspellings word substitutions, or other variations that should not change the essence of the clinical content of this encounter note. If there is need for further clarification, please direct questions to the provider listed above.) clinically he is doing quite well, he had right upper quadrant pain which has improved, he takes oxycodone for the symptomatic treatment I reviewed blood workup done yesterday, overall stable blood workup noted Would like to discontinue current treatment planning, talked to him about the single agent gemcitabine chemotherapy weekly x2 followed by 1 week off, reviewed with regarding treatment schedule side effect profile he is in agreement for that Will see him in about 6 weeks timeline. Reviewed blood workup done yesterday, stable blood workup noted Dr. Teto Yao/Onc (This note was completed using the dictation program Fluency Direct. As such, there may be misspellings word substitutions, or other variations that should not change the essence of the clinical content of this encounter note. If there is need for further clarification, please direct questions to the provider listed above.) documented in this encounter Nursing Notes * Aleisha Mitchell, TAHIR ASSIST - 09/06/2023 1:35 PM EDT Patient identifed by name and birthdate Do you have any concerns about pain management for today's visit? No Living Will or Advance Directive for Health Care as noted on the problem list. [facility] is a way you can talk to your provider on line through e-mail. Would you like to sign up? I can activate it for you? ALREADY ACTIVE Filed Vitals: 09/06/23 1332 BP: 124/75 Pulse: 83 Temp: (!) 38.3 C (100.9 F) TempSrc: Tympanic SpO2: 98% Weight: 113.2 kg (249 lb 8 oz) Patient was instructed to not get up on the exam table/exam chair until directed and assisted by their provider; patient is to remain seated in the chair/ wheelchair/ exam table/ exam chair for fall prevention and safety reasons. Patient is aware to have assistance to step down off exam table/exam chair with personnel. Patient voiced full comprehension of instructions. documented in this encounter Plan of Treatment Upcoming Encounters Date Type Department Care Team (Late st Contact Info) Description 09/13/2023 1:00 PM EDT Laboratory Laboratory [facility] [employer] [address] [place] [place] [phone] Neisha Lab [facility] [address] [place] [address] [address] 09/13/2023 2:00 PM EDT Hem/Onc Treatment Hematology/Oncology Treatment, [address] [place] [phone] Neisha, Chair 8 Hem Onc [facility] [address] [place] [address] [address] 09/18/2023 1:45 PM EDT Imaging Radiology [address] [place] [address] 09/27/2023 12:50 PM EDT Laboratory Laboratory State [place] Crespo [address] [place] [address] [phone] Neisha Lab [facility] [address] [place] [place] [address] [address] 09/27/2023 2:00 PM EDT Hem/Onc Treatment Hematology/Oncology Treatment, [address] [place] [phone] [place], Chair 1 Hem Onc Scenery [address] [place], [place] [address] 10/04/2023 1:00 PM EDT Laboratory Laboratory [facility] [place] [address] [place], [place] [phone] Neisha, Lab Scenery [address] [facility] [place], [place] [address] 10/04/2023 2:00 PM EDT Hem/Onc Treatment Hematology/Oncology Treatment, [place] [address] [facility], [place] [phone] Neisha, Chair 10 Hem Onc Scenery [address] [place] [address] 10/10/2023 12:45 PM EDT Imaging Radiology [address], [place] [address] [facility] [address] 10/19/2023 10:30 AM EDT Laboratory Laboratory [facility] [place] [address] [place] [phone] Neisha, Lab Scenery [address] [facility] [place], [place] [address] 10/19/2023 11:00 AM EDT Office Visit Hematology/Oncology [facility] [place] [address] [place], [place] [phone] Rachel Marina CRNP [address] [place] [address] [place] [address] 10/19/2023 11:30 AM EDT Hem/Onc Treatment Hematology/Oncology Treatment, [place] [address] [facility], [place] [phone] Neisha, Chair 11 Hem Onc Scenery [address] [place] [address] 10/26/2023 2:00 PM EDT Hem/Onc Treatment Hematology/Oncology Treatment, [place] [address] [place] [phone] Neisha, Chair 9 Hem Onc Scenery [address] [place] [address] 11/15/2023 11:30 AM EDT Office Visit Urology, [facility], [place] [address] [place] [address] Adolfo Key MD [address] [place] [address] [place] [address] Pending Results Name Type Priority Associated Diagnoses Date /Time AMMONIA Lab Routine Adenocarcinoma of pancreas (HCC) Metastasis to liver (HCC) Jerky body movements 09/06/2023 2:14 PM EDT Scheduled Orders Name Type Priority Associated Diagnoses Orde r Schedule MRI BRAIN W WO CONTRAST Medical Imaging Routine Adenocarcinoma of pancreas (HCC) Metastasis to liver (HCC) Jerky body movements Ordered: 09/06/[address] SKULL BASE TO MID-THIGH FDG Medical Imaging Routine Adenocarcinoma of pancreas (HCC) Metastasis to liver (HCC) Ordered: 09/06/2023 Scheduled Procedures Name Priority Associated Diagnoses Date/Ti [...] - PCV) 05/10/2022 05/10/2021 GFR 09/05/2024 09/06/2023, 03/0 01/2024, 08/22/2023, Additional history exists Albumin/Creatinine Ratio [...] this encounter Medical Devices Implanted Type Area Oracle Fusion Consultant Device Identifier Shelf Expiration Date Model / Serial / Lot Port Implant W/8f Poly Cath - [id number] Implanted:Qty : 1 on 12/01/2022 by Brad Cerda DO at OR [facility] Right: Chest CR BARD : PERIPHERAL VASCULAR [id number] 02/24/2024 [id number] / / [id number] System Urolift - [id number] Implanted:Qty : 6 on 05/31/2023 by Adolfo Key MD at OR [facility] [employer] 09/01/2023 [id number] / / [id number] Description:prostate documented as of this encounter Visit Diagnoses Diagnosis Adenocarcinoma of pancreas (HCC)- Primary Malignant neoplasm of pancreas, part unspecified Metastasis to liver (HCC) Secondary malignant neoplasm of liver Jerky body movements Abnormal involuntary movements documented in this encounter Advance Directives Documents on File Type Date Recorded Patient Car Whacker Expl anation POLST 07/13/2023 4:08 PM POLST [...] Discussed due to patient's condition Care Teams Costing Analyst Relationship Specialty Start Date End Date Ray Royal MD [address] [place] [address] [place] [address] PCP - General Family Medicine 10/22/18 documented as of this encounter"
--- OUTSIDE RECORDS SUMMARY | 2023-09-20 05:42 | External Medical Summary | Summary of Care ---
Author Name Unknown Organization [facility] Address [address] [place] [address] Phone [phone] Care Team Providers Care Rotary Driller Prospecting Name Role Phone Ray Royal MD Primary Care Provider + [phone] Reason for Visit * Reason Comments Chemotherapy Gemzar. * Evaluate & Treat - Unlimited Visits (Within 30 days (routine)) - Authorized Specialty Diagnoses / Procedures Referred By Mike velázquez Referred To Contact Hematology Oncology Diagnoses Gallbladder cancer (HCC) Procedures Eval/Treat Anabell Driver PA-C [address] [place] [address] Referral ID Status Reason Start Date Expiration Date Visits Requested Visits Authorized [id number] Authorized Specialty Services Required 12/01/2022 12/06/2023 999 999 Encounter Details Date Type Department Care Team (Latest Contact Info) Description 08/22/2023 10:00 AM EST Hem/Onc Treatment Hematology/Oncolog y Treatment, [address] [address] Neisha, Chair [address] Hem [address] [address] Adenocarcinoma of pancreas (HCC)*; Encounter for antineoplastic [...] mRNA, LNP-s, No Pre serve, 2-Dose Series (DancingAnchovy) 02/23/2021,02/02/2021 HEP A - Hepatitis A (Adult > 18 yrs) 09/21/2020, 02/10/2020 Hepatitis B, 20+ yrs 09/21/2020,03/23/2020,02/09 Pneumococcal Conjugate Vacci ne, 20-valent (Ovfsmnh31) 10/26/2022(Deferred: Patient Refused) Pneumococcal Polysaccharide PPV23 (Pneumovax) [...] PM EST Chair 1. Patient arrived for hoaglandzar. Patient states does not feel well overall, [...] 09/13/2023 1:00 PM EDT Laboratory Laboratory Scenery [place] [address] [place] [address] [place], Lab Scenery [address] [place] [address] 09/13/2023 2:00 PM EDT Hem/Onc Treatment Hematology/Oncology Treatment, [address] [place] [address] Neisha, Chair 6 Hem Onc Scenery [address] [place] [address] 09/18/2023 1:45 PM EDT Imaging Radiology [address] [place] [address] 09/27/2023 12:50 PM EDT Laboratory Laboratory [facility] [place] [address] [place] [phone] Neisha, Lab Scenery [address] [place] [address] 09/27/2023 2:00 PM EDT Hem/Onc Treatment Hematology/Oncology Treatment, [address] [place] [address] eNisha, Chair 1 Hem Onc Scenery [address] [place] [address] 10/04/2023 1:00 PM EDT Laboratory Laboratory [facility] [place]isha [place] [address] [place] [address] Neisha, Lab Scenery [address] [place] [address] 10/04/2023 2:00 PM EDT Hem/Onc Treatment Hematology/Oncology Treatment, [place] 200 [facility], [place] [phone] Neisha, Chair 10 Hem Onc Scenery [address] [place] [address] 10/10/2023 12:45 PM EDT Imaging Radiology [address], [place] [address] [facility] [place] [address] 10/19/2023 10:30 AM EDT Laboratory Laboratory [facility] [place] [address] [place] [phone] Neisha, Lab [facility] [address] [place] [facility] [place], [place] [address] 10/19/2023 11:00 AM EDT Office Visit Hematology/Oncology [facility] Neisha [place] [address] [place] [address] Rachel Marina, NOELLE [facility] [place] [address] 10/19/2023 11:30 AM EDT Hem/Onc Treatment Hematology/Oncology Treatment, [place] 200 [facility], [place] [phone] Neisha, Chair 11 Hem Onc Scenery [address] [place] [address] 10/26/2023 12:50 PM EDT Laboratory Laboratory [facility] Neisha [place] [address] [place] [address] Neisha, Lab Scenery [address] [facility] [place], [place] [address] 10/26/2023 2:00 PM EDT Hem/Onc Treatment Hematology/Oncology Treatment, [place] [facility] [address] Neisha, Chair 9 Hem Onc Scenery [address] [place] [address] 11/15/2023 11:30 AM EDT Office Visit Urology, [facility] [address] [place] [address] Adolfo Key MD [address] [facility] [place] [address] [place] [address] Scheduled Procedures [...] this encounter Medical Devices Implanted Type Area Manager Critical Care Unit Device Identifier Shelf Expiration Date Model / Serial / Lot Port Implant W/8f Poly Cath - [id number] Implanted:Qty : 1 on 12/01/2022 by Brad Cerda DO at OR [facility] Right: Chest CR BARD : PERIPHERAL VASCULAR [id number] 02/24/2024 [id number] / / [id number] System Urolift - [id number] Implanted:Qty : 6 on 05/31/2023 by Adolfo Key MD at OR [facility] [employer] 09/01/2023 [id number] / / [id number] Description:prostate documented as of this encounter Visit [...] Documents on File Type Date Recorded Patient Gate Watch Expl anation POLST 07/13/2023 4:08 PM POLST [...] Discussed due to patient's condition Care Teams Rotary Driller Prospecting Relationship Specialty Start Date End Date Ray Royal MD [address] [place] [address] [place] [address] PCP - General Family Medicine 10/22/18 documented as of this encounter
--- OUTSIDE RECORDS SUMMARY | 2023-09-20 05:42 | External Medical Summary | Summary of Care ---
Author Name Unknown Organization [facility] Address [address] [place] [address] Phone [phone] Care Team Providers Care Detail Technician Name Role Phone Ray Royal MD Primary Care Provider [phone] Reason for Visit * Reason Comments Chemotherapy C3/D8 - Gemzar * Episode Based Medications (Routine) - Authorized Specialty Diagnoses / Procedures Referred By Contac t Referred To Contact Diagnoses Adenocarcinoma of pancreas (HCC) Encounter for antineoplastic chemotherapy Metastasis to liver (HCC) Procedures RI IN GEMCITABINE HCL NOS 200MG Teto Torrez MD [address] [place] [address] [place] [address] Anc Hem/Onc [facility] Neisha [address] [place] [phone] Referral ID Status Reason Start Date Expiration Date V isits Requested Visits Authorized [id number] Authorized 12/01/2022 12/06/2023 999 999 Encounter Details Date Type Department Care Team (Latest Contact Info) Description 09/06/2023 1:45 PM EDT Hem/Onc Treatment Hematology/Oncolog y Treatment, [address] [address] Neisha, Chair 1 Hem On[address] [place] [address] Adenocarcinoma of pancreas (HCC)*; Encounter for [...] mRNA, LNP-s, No Pre serve, 2-Dose Series (Palm) 02/23/2021,02/02/2021 HEP A - Hepatitis A (Adult > 18 yrs) 09/21/2020, 02/10/2020 Hepatitis B, 20+ yrs 09/21/2020,03/23/2020,02/09 Pneumococcal Conjugate Vacci ne, 20-valent (Fvcbeaf97) 10/26/2022(Deferred: Patient Refused) Pneumococcal Polysaccharide PPV23 (Pneumovax) [...] on file documented as of this encounter Nursing Notes * Elham Mcdowell RN - 09/06/2023 4:25 PM EDT Chair 1. Patient saw Dr. Torrez today -- see OV note for details. Brain MRI ordered- scheduled 09/17 to r/o brain mets. Ammonia level was collected today as well, per Dr. Torrez. Will assess when resulted. Dr. Prado also came to visit with patient as well. Potassium resulted at 5.4 today -- Dr. Torrez made aware. Patient states someone told him to restarttaking this BID (ordered in March) -- RN educated patient does not need to take this since his potassium is too high, brother also made aware to have patient not take Potassium at home. Will recheck patient's potassium next week. Chemotherapy/Immunotherapy agents: GEMZAR Consent for chemotherapy drug treatment complete, dated, and signed? yes, date - 07/18/2023 Treatment lab parameters met? Yes Has treatment weight changed > than 10%? No Treatment preauthorized? Yes VITALS There were no vitals filed for this visit. Urine protein: N/A Patient education completed for treatment? Yes Blood transfusion consent signed and complete? NA Return appointment scheduled? Yes Patient had provider visit today? Yes - Ok to release order and treat per provider Functional Status: Functional status at today's visit: [...] symptoms or adverse side effects during treatment. Safety and Risk for Injury Patient will [...] 09/13/2023 1:00 PM EDT Laboratory Laboratory [place] [address] [place] [phone] [facility] [address] [place] [address] 09/13/2023 2:00 PM EDT Hem/Onc Treatment Hematology/Oncology Treatment, [place] 200 [facility] [place], [place] [address] Neisha, Chair 8 Hem Onc Scenery [address] [place] [address] 09/18/2023 1:45 PM EDT Imaging Radiology [address] [place] [address] 09/27/2023 12:50 PM EDT Laboratory Laboratory [facility] [place] [address] [place] [address] Neisha, Lab Scenery [address] [facility] [place] [address] 09/27/2023 2:00 PM EDT Hem/Onc Treatment Hematology/Oncology Treatment, [place] [facility] [address] Neisha, Chair 1 Hem Onc Scenery [address] [place], [place] [address] 10/04/2023 1:00 PM EDT Laboratory Laboratory [facility] [place] [address] [place] [address] Neisha, Lab Scenery [address] [facility], [place] [address] 10/04/2023 2:00 PM EDT Hem/Onc Treatment Hematology/Oncology Treatment, [place] 200 [facility], [place] [address] Neisha, Chair 10 Hem Onc Scenery [address] [place], [place] [address] 10/10/2023 12:45 PM EDT Imaging Radiology [address], [place] 132 [facility] [place] [address] 10/19/2023 10:30 AM EDT Laboratory Laboratory [facility] [address] [place] [phone] Neisha, Lab Scenery [address] [place], [place] [address] 10/19/2023 11:00 AM EDT Office Visit Hematology/Oncology [facility] [place] [address] [place] [phone] Rachel Marina CRNP 400 [facility] [place] [id number] 10/19/2023 11:30 AM EDT Hem/Onc Treatment Hematology/Oncology Treatment, [address], [place] [phone] Neisha, Chair 11 Hem Onc Scenery 200 [facility] [place] [address] 10/26/2023 12:50 PM EDT Laboratory Laboratory [facility] [place] [address] [place] [phone] Neisha, Lab [facility] 200 [facility] [place], [place] [address] 10/26/2023 2:00 PM EDT Hem/Onc Treatment Hematology/Oncology Treatment, [address], [place] [phone] Neisha, Chair 9 Hem Onc Scenery 200 [facility] [place] [address] 11/15/2023 11:30 AM EDT Office Visit Urology, [facility] 132 [facility] [place] [phone] Adolfo Key MD [address] [address] [place] [id number] Scheduled Procedures Name Priority Associated Diagnoses Date/Ti [...] this encounter Medical Devices Implanted Type Area Nuclear Medical Technologist Device Identifier Shelf Expiration Date Model / Serial / Lot Port Implant W/8f Poly Cath - [id number] Implanted:Qty : 1 on 12/01/2022 by Brad Cerda DO at OR [facility] Right: Chest CR BARD : PERIPHERAL VASCULAR [id number] 02/24/2024 [id number] / / [id number] System Urolift - [id number] Implanted:Qty : 6 on 05/31/2023 by Adolfo Key MD at OR [facility] [employer] 09/01/2023 [id number] / / [id number] Description:prostate documented as of this encounter Visit [...] ONCE PRN Other, Hypersensitivity Reaction, Starting on Mon09/06/23 at 1434, Until Radha 09/07/23 at 1433, For 24 hours EPINEPHrine 1 MG/ML inj 0.3 mg 0.3 mg, Intramuscular, ONCE PRN Other, Hypersensitivity Reaction or Anaphylaxis, Starting on Mon09/06/23 at 1434, Until Radha 09/07/23 at 1433, For 24 hours hEParin 100 UNIT/ML Lock Flush inj 500 Units 500 Units (5 mL), IV Lock, PRN Other, IV Flush, Starting on Mon09/06/23 at 1434, Until Radha 09/07/23 at 1433, For 24 hours, Do not flush if lock, PICC, or central line not in place; IV infusing or unable to flush. Given 09/06/2023 3:43 PM EDT 500 Units Hydrocortisone Sod Suc (PF) (Solu-Cortef) inj 100 mg 100 mg, IV Push, ONCE PRN Other, Hypersensitivity Reaction, Starting on Mon09/06/23 at 1434, Until Radha 09/07/23 at 1433, For 24 hours LORAzepam (Ativan) tab 0.5 mg 0.5 mg, Oral, ONCE PRN Anxiety, Nausea, Starting on Mon09/06/23 at 1545, Until Discontinued NSS infusion Intravenous, at 50 mL/hr, PRN, Starting on Mon09/06/23 at 1545, Until Discontinued, Maintenance line Start Infusion 09/06/2023 2:31 PM EDT 50 mL/hr oxygen GAS Inhalation, OXYGEN, First dose on Mon09/06/23 at 1600, Until Discontinued, Device/Managed by: Low [...] Push, PRN Other, IV Flush, Starting on Mon09/06/23 at 1434, Until Radha 09/07/23 at 1433, For 24 hours, Do not flush if lock, PICC, or central line not in place; IV infusing or unable to flush. Given 09/06/2023 3:43 PM EDT 10 mL Inactive Administered Medications - up to 3 most recent administrations Medication Order MAR Action Action Date Dose Rate Site gemcitabine (Gemzar) 2,600 mg in NSS 250 mL infusion 2,600 mg (rounded from 2,500 mg = 1,000 mg/m2 2.5 m2 Treatment Plan BSA from Recorded weight), IV Piggyback, ONCE, 1 dose, On Mon09/06/23 at 1615, Administer over 30 Minutes Start Infusion 09/06/2023 3:11 PM EDT 2,600 mg 500 mL/hr ondansetron (Zofran) tab 8 mg 8 mg, Oral, ONCE, On Mon09/06/23 at 1545, For 1 dose, Give 30 minutes prior to chemotherapy. 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
--- OUTSIDE RECORDS SUMMARY | 2023-09-20 05:42 | External Medical Summary | Summary of Care ---
Author Name Unknown Organization [facility] Address [address] [place] [address] Phone [phone] Care Team Providers Care Cut And Cover Line Worker Name Role Phone Ray Royal MD Primary Care Provider [phone] Encounter Details Date Type Department Care Team (Late st Contact Info) Description 09/11/2023 Orders Only Outcomes Research Department [address] [place], [place] [id number] Enma Santos CHRA MiRTLE Medical Research Other*[id number] Allergies No known active allergiesdocumented as of this encounter (statuses as of 09/11/2023) Medications Medication Sig Dispensed Refills Start Date [...] as of this encounter (statuses as of 09/11/2023) Active Problems Problem Noted Date Diagnosed Date Dehydration 08/09/2023 Food insecurity 06/05/2023 Overview: Per [facility] Protocol Urethral stricture 04/03/2023 Slow urinary [...] chronic gout of multiple sites withou t oziels 02/01/2019 Primary hypertension documented as of this encounter (statuses as of 09/11/2023) Immunizations Name Administration Dates Next Due COVID-19 mRNA, LNP-s, No Pre serve, 2-Dose Series ([employer]) 02/23/2021,02/02/2021 HEP A - Hepatitis A (Adult > 18 yrs) 09/21/2020, 02/10/2020 Hepatitis B, 20+ yrs 09/21/2020,03/23/2020,02/09 Pneumococcal Conjugate Vacci ne, 20-valent (Eounebx12) 10/26/2022(Deferred: Patient Refused) Pneumococcal Polysaccharide PPV23 (Pneumovax) [...] State [employer] [address] [phone] Patricio Driver [address] [place] [address] [address] 09/13/2023 2:00 PM EDT Hem/Onc Treatment Hematology/Oncology Treatment, [address] [place] [address] Neisha, Chair 6 Hem Onc [place] [address] 09/18/2023 1:45 PM EDT Imaging Radiology [address] [place] [address] 09/27/2023 12:50 PM EDT Laboratory Laboratory [place] [address] [place] [address] [address] Neisha Lab [place] [address] [place] [address] [address] 09/27/2023 2:00 PM EDT Hem/Onc Treatment Hematology/Oncology Treatment, [place] 200 [facility] [place] [address] Neisha, Chair 1 Hem Onc Scenery [address] [place] [address] 10/04/2023 1:00 PM EDT Laboratory Laboratory [facility] [place] [address] [place] [phone] Neisha, Lab Scenery [address] [facility] [place] [address] 10/04/2023 2:00 PM EDT Hem/Onc Treatment Hematology/Oncology Treatment, [place] [address] [place] [address] Neisha, Chair 10 Hem Onc Scenery [address] [place] [address] 10/10/2023 12:45 PM EDT Imaging Radiology [address], [place] [facility] [place] [address] 10/19/2023 10:30 AM EDT Laboratory Laboratory [facility] Neisha [place] [address] [place] [phone] Neisha, Lab Scenery [address] [facility] [place] [address] 10/19/2023 11:00 AM EDT Office Visit Hematology/Oncology [facility] [place] [address] [place] [phone] Rachel Marina CRNP [address] [place] [address] [place] [address] 10/19/2023 11:30 AM EDT Hem/Onc Treatment Hematology/Oncology Treatment, [place] [address] [facility], [place] [phone] Neisha, Chair 11 Hem Onc Scenery [address] [place] [address] 10/26/2023 12:50 PM EDT Laboratory Laboratory [facility] Neisha [place] [address] [place] [phone] Neisha, Lab Scenery [address] [place] [address] 10/26/2023 2:00 PM EDT Hem/Onc Treatment Hematology/Oncology Treatment, [place] [address] [place] [address] Neisha, Chair 9 Hem Onc Scenery [address] [place] [address] 11/15/2023 11:30 AM EDT Office Visit Urology, [facility] [address] [place] [address] Adolfo Key MD [address] [place] [address] [place] [address] Scheduled Orders Name Type Priority Associated Diagnoses Orde r Schedule MYCODE SUBSEQUENT ADULT Lab Routine [employer] Research Other*[id number] Every 6 Months for 2 Occurrences starting 09/11/2023 until 09/30/2024 Scheduled Procedures Name Priority Associated Diagnoses Date/Ti [...] this encounter Medical Devices Implanted Type Area Stull Hewer Device Identifier Shelf Expiration Date Model / Serial / Lot Port Implant W/8f Poly Cath - [id number] Implanted:Qty : 1 on 12/01/2022 by Brad Cerda DO at OR [facility] Right: Chest CR BARD : PERIPHERAL VASCULAR [id number] 02/24/2024 [id number] / / [id number] System Urolift - [id number] Implanted:Qty : 6 on 05/31/2023 by Adolfo Key MD at OR [facility] [employer] 09/01/2023 [id number] / / [id number] Description:prostate documented as of this encounter Visit Diagnoses Diagnosis [employer] Other*[id number] documented in this encounter Advance Directives Documents on File Type Date Recorded Patient Wool Mixer Expl anation POLST 07/13/2023 4:08 PM POLST [...] Discussed due to patient's condition Care Teams Cut And Cover Line Worker Relationship Specialty Start Date End Date Ray Royal MD [address] [place] [address] [place] [address] PCP - General Family Medicine 10/22/18 documented as of this encounter
--- OUTSIDE RECORDS SUMMARY | 2023-09-20 05:43 | External Medical Summary | Summary of Care ---
Author Name Unknown Organization [facility] Address [address] [place] [address] Phone [phone] Care Team Providers Care Taxi Proprietor Name Role Phone Ray Royal MD Primary Care Provider [phone] Reason for Visit * Reason Onset Date Comments Advice 09/05/2023 Encounter Details Date Type Department Care Team (Late st Contact Info) Description 09/05/2023 Telephone Hematology/Oncology [facility] [address] [place] [address] Teto Torrez MD [address] [facility] [address] Advice () Allergies No known active allergiesdocumented as of this encounter (statuses as of 09/05/2023) Medications Medication Sig Dispensed Refills Start Date [...] needed for Pain, Severe. 60 Tablet 0 08/28/2023 Active Morphine Sulfate ER 30 MG Oral Tablet Extended Release (Ms Contin) Take 1 Tablet by mouth in the morning and 1 Tablet before bedtime. 30 Tablet 0 08/28/2023 Active documented as of this encounter (statuses as of 09/05/2023) Active Problems Problem Noted Date Diagnosed Date [...] as of this encounter (statuses as of 09/05/2023) Immunizations Name Administration Dates Next Due COVID-19 mRNA, LNP-s, No Pre serve, 2-Dose Series (Pod Inns) 02/23/2021,02/02/2021 HEP A - Hepatitis A (Adult > 18 yrs) 09/21/2020, 02/10/2020 Hepatitis B, 20+ yrs 09/21/2020,03/23/2020,02/09 Pneumococcal Conjugate Vacci ne, 20-valent ([id number]) 10/26/2022(Deferred: Patient Refused) Pneumococcal Polysaccharide PPV23 (Pneumovax) [...] Frequency of Alcohol Consumption 2-3 times a wekerry k 10/22/2018 Average Number of Drinks Not [...] encounter Miscellaneous Notes * Telephone Encounter - Starla Casanova RN - 09/05/2023 1:33 PM EDT Patient has appt to see Dr Torrez tomorrow. Dr Torrez: TONY * Telephone Encounter - Vannesa Moncada OSA - 09/05/2023 10:34 AM EDT [place]en from [facility] states that they received a referral for the patient from [facility] ER on 09/01/23. Aspen would like to know that the patient reported that his weight was 246 pounds 3 days ago and his weight is now 236 pounds. Aspen states that the patient's heart rate is 117, blood pressure is 116/70, and oxygen saturation is 97%. Aspen states that the patient told her that sometimes he feels sweaty and also tired. documented in this encounter Plan of Treatment Upcoming Encounters Date Type Department Care Team (Late st Contact Info) Description 09/06/2023 12:30 PM EDT Laboratory Laboratory [facility] [address] [place] [phone] Neisha, Lab [address] [place] [address] 09/06/2023 1:15 PM EDT Office Visit Hematology/Oncology [facility] 200 [facility] [place] [phone] Teto Torrez MD 200 [facility] [place] [address] 09/06/2023 1:45 PM EDT Hem/Onc Treatment Hematology/Oncology Treatment, [place] [address] [place] [place] [phone] Neisha, Chair 1 Hem Onc [address] [place] [address] 09/06/2023 2:00 PM EDT Office Visit Palliative Medicine [address] [place] [phone] Shante Prado MD 400 [facility] [place] [address] 11/15/2023 11:30 AM EDT Office Visit Urology, [facility] 132 [facility] [place] [address] Adolfo Key MD [address] [place] [address] [place] [phone] Scheduled Procedures Name Priority Associated Diagnoses Date/Ti me COLONOSCOPY FLEXIBLE PROXIMAL DIAGNOSTIC Recall History of colon polyps Health Maintenance Due Date Last Done Comments HIV Screening 1975 Depression Screening 09/29/2020 09/30/2019 COVID-19 Vaccine (3 - Pfizer risk series) 03/23/2021 02/23/2021, 02/02/2021 Pneumococcal Vaccine: Pediatrics (0 to 5 Years) and At-Risk Patients (6 to 64 Years) (2 of 2 - PCV) 05/10/2022 05/10/2021 GFR 08/31/2024 09/01/2023, 07/28, 08/15/2023, Additional history exists Albumin/Creatinine Ratio 09/14/2025 023, 09/07/2021, 10/22/2018 Diabetes Screening 08/31/2026 09/01/2023, 0 08/22/2023, 08/15/2023, Additional history exists Lipid Panel 11/25/2027 11/24/2022, [...] this encounter Medical Devices Implanted Type Area Costume Specialist Device Identifier Shelf Expiration Date Model / Serial / Lot Port Implant W/8f Poly Cath - [id number] Implanted:Qty : 1 on 12/01/2022 by Brad Cerda DO at OR [facility] Right: Chest CR BARD : PERIPHERAL VASCULAR [id number] 02/24/2024 [id number] / / [id number] System Urolift - [id number] Implanted:Qty : 6 on 05/31/2023 by Adolfo Key MD at OR [facility] [employer] 09/01/2023 [id number] / / [id number] Description:prostate documented as of this encounter Advance Directives Documents on File Type Date Recorded Patient Crystal Growing Technician Tracie guthrie POLST 07/13/2023 4:08 PM POLST (Cade ited [...] Discussed due to patient's condition Care Teams Taxi Proprietor Relationship Specialty Start Date End Date Ray Royal MD [address] [place] [address] [place] [phone] PCP - General Family Medicine 10/22/18 documented as of this encounter
--- OUTSIDE RECORDS SUMMARY | 2023-09-20 05:43 | External Medical Summary ---
Author Name Unknown Address Unknown Organization K[facility] [place] [address] Laboratory Report Ordering Provider Test Date Status TJ SMITH 09/06/2023 13:22:10 Final Observation Date Value Abnormality Reference (Units ) Status WBC, Total 09/06/2023 13:22:10 11.48 Above high normal 4 .00-10.80 (K/uL) Final RBC 09/06/2023 13:22:10 3.27 4.50-5.25 (M/uL) Final Hemoglobin 09/06/2023 13:22:10 10.4 Below low normal 14 .0-16.8 (g/dL) Final HCT 09/06/2023 13:22:10 33.4 Below low normal 40. 0-48.4 (%) Final MCV 09/06/2023 13:22:10 102.1 82.0-99.5 (fL) Final MCH 09/06/2023 13:22:10 31.8 27.0-34.0 (pg) Final MCHC 09/06/2023 13:22:10 31.1 32.0-36.0 (g/dL) Final RDW 09/06/2023 13:22:10 20.6 11.5-15.5 (%) Final Platelets 09/06/2023 13:22:10 248 140-400 (K /uL) Final MPV 09/06/2023 13:22:10 11.6 6.6-11.1 ( fL) Final Performing Location [facility] [place] [address]
--- OUTSIDE RECORDS SUMMARY | 2023-09-20 05:43 | External Medical Summary ---
Author Name Unknown Address Unknown Organization K[facility] [place] [address] Laboratory Report Ordering Provider Test Date Status TJ SMITH 09/06/2023 13:22:10 Final Observation Date Value Abnormality Reference (Units ) Status BUN 09/06/2023 13:22:10 26 Above high normal 6-20 (mg/dL) Final Creatinine 09/06/2023 13:22:10 0.9 0.6-1.2 (mg/dL) Final Glomerular filtration rate/1.73 sq M.predicted [Volume Rate/Area] in Serum, Plasma or Blood by Creatinine-based formula (CKD-EPI) 09/06/2023 13:22:10 >90 >=60 (mL/min) Final eGFR is calculated based on the CKD-EPI 2020 equation SODIUM 09/06/2023 13:22:10 132 Below low normal 135 -146 (mmol/L) Final Potassium 09/06/2023 13:22:10 5.4 Above high normal 3. 5-5.1 (mmol/L) Final Cl 09/06/2023 13:22:10 101 98-107 (mm ol/L) Final CO2 09/06/2023 13:22:10 20 Below low normal 22- 32 (mmol/L) Final Anion gap 09/06/2023 13:22:10 11 7-15 (mmol /L) Final Glucose 09/06/2023 13:22:10 176 Above high normal 70 -120 (mg/dL) Final Albumin 09/06/2023 13:22:10 3.1 Below low normal 3.8 -5.0 (g/dL) Final AST (Aspartate aminotransferase) 09/06/2023 13:22:10 45 10-50 (U/L) Fin al Alk Phos 09/06/2023 13:22:10 246 Above high normal 35 -130 (U/L) Final Bilirubin, Total 09/06/2023 13:22:10 1.0 <=1 .2 (mg/dL) Final Calcium 09/06/2023 13:22:10 9.1 8.4-10.2 ( mg/dL) Final Protein 09/06/2023 13:22:10 6.1 6.0-8.3 (g /dL) Final ALT (Alanine aminotransferase) 09/06/2023 13:22:10 16 10-50 (U/L) Darien harris Performing Location [facility] [address] [place] [address]
--- OUTSIDE RECORDS SUMMARY | 2023-09-20 05:43 | External Medical Summary | Summary of Care ---
Author Name Unknown Organization [facility] Address [address] [place] [address] Phone [phone] Care Team Providers Care Hospice Home Care Coordinator Name Role Phone Ray Royal MD Primary Care Provider + [phone] Reason for Visit * Reason Comments Outpatient Testing * Evaluate & Treat - Unlimited Visits (Within 30 days (routine)) - Authorized Specialty Diagnoses / Procedures Referred By Contmahad velázquez Referred To Contact Hematology Oncology Diagnoses Gallbladder cancer (HCC) Procedures Eval/Treat Anabell Driver PA-C [address] [place] [address] Referral ID Status Reason Start Date Expiration Date Visits Requested Visits Authorized [id number] Authorized Specialty Services Required 12/01/2022 12/06/[phone] Encounter Details Date Type Department Care Team (Late st Contact Info) Description 09/06/2023 12:30 PM EDT Laboratory Laboratory [facility] [place] [address] [place] [phone] Patricio Driver [address] [place] [address] Adenocarcinoma of pancreas (HCC); Metastasis to liver [...] mRNA, LNP-s, No Pre serve, 2-Dose Series (Xolve) 02/23/2021,02/02/2021 HEP A - Hepatitis A (Adult > 18 yrs) 09/21/2020, 02/10/2020 Hepatitis B, 20+ yrs 09/21/2020,03/23/2020,02/09 Pneumococcal Conjugate Vacci ne, 20-valent (Pavteio13) 10/26/2022(Deferred: Patient Refused) Pneumococcal Polysaccharide PPV23 (Pneumovax) [...] Description 09/06/2023 1:45 PM EDT Hem/Onc Treatment Hematology/[address] [phone] Neisha, Chair 1 Hem Onc [address] [address] Arrived 09/06/2023 2:00 PM EDT Office Visit Palliative Medicine [facility] [address] [phone] Shante Prado MD [address] [place], [place] [address] [address] TBS in infusion center 11/15/2023 11:30 AM EDT Office Visit Urology, [facility] 132 [facility] [place] [address] Adolfo Key MD 27 [facility] [address] [place] [address] Pending Results Name Type Priority Associated Diagnoses Date /Time COMPREHENSIVE METABOLIC PANEL Lab STAT Adenocarcinoma of pancreas (HCC) Metastasis to liver (HCC) 09/06/2023 1:22 PM EDT Scheduled Procedures Name Priority Associated Diagnoses [...] this encounter Medical Devices Implanted Type Area Dust Collector Treater Device Identifier Shelf Expiration Date Model / Serial / Lot Port Implant W/8f Poly Cath - [id number] Implanted:Qty : 1 on 12/01/2022 by Brad Cerda DO at OR [facility] Right: Chest CR BARD : PERIPHERAL VASCULAR [id number] 02/24/2024 [id number] / / [id number] System Urolift - [id number] Implanted:Qty : 6 on 05/31/2023 by Adolfo Key MD at OR [facility] [employer] 09/01/2023 [id number] / / [id number] Description:prostate documented as of this encounter Procedures Procedure Name Priority Date/Time Associated Diagnosis Comments DIFFERENTIAL, AUTOMATED STAT 09/06/2023 1:22 PM EDT Adenocarcinoma of pancreas (HCC) Metastasis to liver (HCC) CBC STAT 09/06/2023 1:22 PM EDT Adenocarcinoma of pancreas (HCC) Metastasis to liver (HCC) CBC STAT 09/06/2023 1:22 PM EDT Adenocarcinoma of pancreas (HCC) Metastasis to liver (HCC) documented in this encounter Results * (ABNORMAL) DIFFERENTIAL, AUTOMATED (09/06/2023 1:22 PM EDT) WBC 11.48(H) 4.00 - 10.80 K/uL 09/06/2023 1:34 PM EDT LAB[facility] 56-02 Neutrophils % 83.5(H) 40.0 - 75.0 % 09/06/2023 1:34 PM EDT [facility]ATORY [facility] 56-02 Lymphocytes % 4.5(L) 18.0 - 42.0 % 09/06/2023 1:34 PM EDT [facility] 56 Monocytes % 10.7 1.0 - 11.0 % 09/06/2023 1:34 PM EDT [facility] 56 Eosinophils % 1.1 0.0 - 6.0 % 09/06/2023 1:34 PM EDT [facility] 56 Basophils % 0.2 0.0 - 2.0 % 09/06/2023 1:34 PM EDT [facility] 56 Absolute Neutrophils 9.58(H) 1.80 - 7.70 K/uL 09/06/2023 1:34 PM EDT [facility] 56 Absolute Lymphocytes 0.52(L) 1.00 - 4.80 K/ul 09/06/2023 1:34 PM EDT [facility] Absolute Monocytes 1.23(H) 0.00 - 1.10 K/uL 09/06/2023 1:34 PM EDT [facility] Absolute Eosinophils 0.13 0.00 - 0.70 K/uL 09/06/2023 1:34 PM EDT [facility] 56 Absolute Basophils 0.02 0.00 - 0.20 K/uL 09/06/2023 1:34 PM EDT [facility] Blood Venous blood specimen / Unknown Venipuncture / Unknown 09/06/2023 1:22 PM EDT 09/06/2023 1:22 PM EDT Teto Torrez MD LAB BLOOD ORDERABLES [facility] [address] [place] [address] * (ABNORMAL) CBC (09/06/2023 1:22 PM EDT) WBC 11.48(H) 4.00 - 10.80 K/uL 09/06/2023 1:34 PM EDT [facility] 56 RBC 3.27 4.50 - 5.25 M/uL 09/06/2023 1:34 PM EDT [facility] 56 HGB 10.4(L) 14.0 - 16.8 g/dL 09/06/2023 1:34 PM EDT [facility] 56 HCT 33.4(L) 40.0 - 48.4 % 09/06/2023 1:34 PM EDT [address] MCV 102.1 82.0 - 99.5 fL 09/06/2023 1:34 PM EDT [address] MCH 31.8 27.0 - 34.0 pg 09/06/2023 1:34 PM EDT [address] MCHC 31.1 32.0 - 36.0 g/dL 09/06/2023 1:34 PM EDT [address] RDW 20.6 11.5 - 15.5 % 09/06/2023 1:34 PM EDT [address] PLT 248 140 - 400 K/uL 09/06/2023 1:34 PM EDT [address] MPV 11.6 6.6 - 11.1 fL 09/06/2023 1:34 PM EDT [address] Blood Venous blood specimen / Unknown Venipuncture / Unknown 09/06/2023 1:22 PM EDT 09/06/2023 1:22 PM EDT Teto Torrez MD LAB BLOOD ORDERABLES [place] [address] [place] [address] documented in this encounter Visit Diagnoses Diagnosis Adenocarcinoma of pancreas (HCC) Malignant neoplasm of pancreas, part unspecified Metastasis to liver (HCC) Secondary malignant neoplasm of liver documented in this encounter Advance Directives Documents on File Type Date Recorded Patient Human Resources Leader Expl anation POLST 07/13/2023 4:08 PM POLST [...] Discussed due to patient's condition Care Teams Hospice Home Care Coordinator Relationship Specialty Start Date End Date Ray Royal MD [address] [place] [address] [place] [phone] PCP - General Family Medicine 10/22/18 documented as of this encounter
--- OUTSIDE RECORDS SUMMARY | 2023-09-20 05:43 | External Medical Summary ---
Author Name Unknown Address Unknown Organization [facility]09:[facility] [address] [place] [address] Laboratory Report Ordering Provider Test Date Status TJ SMITH 09/06/2023 13:22:10 Final Observation Date Value Abnormality Reference (Units ) Status SYNC LEUKOCYTES IN BLOOD BY AUTOMATED COUNT 09/06/2023 13:22:10 11.48 Above high normal 4.00-10.80 (K/uL) Final Segs 09/06/2023 13:22:10 83.5 Above high normal 40.0-75.0 (%) Final Lymphs % 09/06/2023 13:22:10 4.5 Below low normal 18.0-42.0 (%) Final Monos 09/06/2023 13:22:10 10.7 1.0-11.0 (%) Final Eosinophils 09/06/2023 13:22:10 1.1 0.0-6.0 (%) Final Basos 09/06/2023 13:22:10 0.2 0.0-2.0 (%) Final Absolute Segs 09/06/2023 13:22:10 9.58 Above high normal 1.80-7.70 (K/uL) Final Lymphs, absolute 09/06/2023 13:22:10 0.52 Below low normal 1.00-4.80 (K/ul) Final Monos, Abs 09/06/2023 13:22:10 1.23 Above high normal 0.00-1.10 (K/uL) Final Eos, Abs 09/06/2023 13:22:10 0.13 0.00-0.70 (K/uL) Final Basos, Abs 09/06/2023 13:22:10 0.02 0.00-0.20 (K/uL) Final Performing Location [facility] [address] [place] [address]
--- OUTSIDE RECORDS SUMMARY | 2023-09-20 05:43 | External Medical Summary ---
Author Name Unknown Address Unknown Organization K01:[facility] [address] [place] [address] Laboratory Report Ordering Provider Test Date Status TJ SMITH 09/06/2023 14:14:10 Final Observation Date Value Abnormality Reference (Units ) Status Ammonia 09/06/2023 14:14:10 59 Above high normal 11 -35 (umol/L) Final Performing Location [facility] - [address] [place] [address]
--- OUTSIDE RECORDS SUMMARY | 2023-09-20 05:43 | External Medical Summary | Summary of Care ---
Author Name Unknown Organization [facility] Address [address] [place] [address] Phone [phone] Care Team Providers Care Dumper Bailer Operator Name Role Phone Ray Royal MD Primary Care Provider + [phone] Encounter Details Date Type Department Care Team (Late st Contact Info) Description 09/04/2023 Orders Only Family Medicine [address] [place] [address] Ronny Purvis MD [address] [place] [address] [place] [phone] Allergies No known active allergiesdocumented as of this encounter (statuses as of 09/04/2023) Medications Medication Sig Dispensed Refills Start Date [...] as of this encounter (statuses as of 09/04/2023) Active Problems Problem Noted Date Diagnosed Date [...] as of this encounter (statuses as of 09/04/2023) Immunizations Name Administration Dates Next Due COVID-19 mRNA, LNP-s, No Pre serve, 2-Dose Series (Chobani) 02/23/2021,02/02/2021 HEP A - Hepatitis A (Adult > 18 yrs) 09/21/2020, 02/10/2020 Hepatitis B, 20+ yrs 09/21/2020,03/23/2020,02/09 Pneumococcal Conjugate Vacci ne, 20-valent ([id number]) 10/26/2022(Deferred: Patient Refused) Pneumococcal Polysaccharide PPV23 (Pneumovax) [...] Description 09/06/2023 12:30 PM EDT Laboratory Laboratory [address] [place] [phone] Neisha Lab [address] [place] [address] 09/06/2023 1:15 PM EDT Office Visit Hematology/Oncology [facility] [address] [place] [phone] Teto Torrez MD [address] [place] [address] [place] [address] 09/06/2023 1:45 PM EDT Hem/Onc Treatment Hematology/Oncology [address] [phone] Neisha, Chair 1 Hem Onc [address] [place] [address] 09/06/2023 3:00 PM EDT Office Visit Palliative Medicine [facility] [address] [phone] Shante Prado MD [address] [place] [address] [place] [phone] 11/15/2023 11:30 AM EDT Office Visit Urology, [facility] [address] [place] [address] Adolfo Key MD [address] [facility] [place] [address] [place] [address] Scheduled Procedures [...] of 2 - PCV) 05/10/2022 05/10/2021 GFR 08/22/2024 09/01/2023, 07/28, 08/15/2023, Additional history exists Albumin/Creatinine Ratio 09/14/2025 023, 09/07/2021, 10/22/2018 Diabetes Screening 08/22/2026 09/01/2023, 0 08/22/2023, 08/15/2023, Additional history exists [...] this encounter Medical Devices Implanted Type Area Shirt Sorter Device Identifier Shelf Expiration Date Model / Serial / Lot Port Implant W/8f Poly Cath - [id number] Implanted:Qty : 1 on 12/01/2022 [facility]: Chest CR BARD : PERIPHERAL VASCULAR [id number] 02/24/2024 [id number] / / [id number] System Urolift - [id number] Implanted:Qty : 6 on 05/31/2023 by Adolfo Key [facility] [employer] 09/01/2023 [id number] / / [id number] Description:prostate documented as of this encounter Procedures Procedure Name Priority Date/Time Associated Diagnosis Comments CHEMISTRY-OUTSIDE Routine 09/01/2023 documented in this encounter Results * (ABNORMAL) CHEMISTRY-OUTSIDE (09/01/2023) Not all results display below - see scan for full detail OUTSIDE LAB (SEE SCANNED REPORT) Comment:ED LABS - BMP, CBCD CREATININE-OUTSID E LAB 0.81 0.70 - 1.30 MG/DL OUTSIDE LAB (SEE SCANNED REPORT) EGFR-OUTSIDE LAB >90 ML/MIN OUT SIDE LAB (SEE SCANNED REPORT) POTASSIUM-OUTSIDE LAB 4.0 3.5 - 5.1 MMOL/L OUTSIDE LAB (SEE SCANNED REPORT) GLUCOSE-OUTSIDE LAB 194(A) 70 - 110 MG/DL OUTSIDE LAB (SEE SCANNED REPORT) HOURS FASTING OUTSID E LAB (SEE SCANNED REPORT) TRIGLYCERIDES-OUT SIDE LAB OUTSIDE LAB (SEE SCANNED REPORT) CHOLESTEROL-OUTSI DE LAB OUTSIDE LAB (SEE SCANNED REPORT) HDL-OUTSIDE LAB OUTS [place] LAB (SEE SCANNED REPORT) CHOL/HDL RATIO-OUTSIDE LAB OUTSIDE LA B (SEE SCANNED REPORT) LDL (CALCULATED)-OUTS [place] LAB OUTSIDE LAB (SEE SCANNED REPORT) LDL (DIRECT MEASURE)-OUTSIDE LAB OUTSIDE LAB (SEE SCANNED REPORT) HEMOGLOBIN, W2Q-FHZWWRN LAB OUTSIDE LAB (SEE SCANNED REPORT) PHOSPHORUS-OUTSID E LAB OUTSIDE LAB (SEE SCANNED REPORT) PTH-OUTSIDE LAB OUTS JEANETTE LAB (SEE SCANNED REPORT) MICROALBUMIN RATIO-OUTSIDE LAB OUTSIDE LA B (SEE SCANNED REPORT) PROTEIN, UA-OUTSIDE LAB OUTSIDE LAB (SEE SCANNED REPORT) HEMOGLOBIN-OUTSID E LAB 9.7(A) 13.5 - 18.0 G/DL OUTSIDE LAB (SEE SCANNED REPORT) 09/01/2023 Alfonso Monroy MD LABORATORY OUTSIDE LAB (SEE SCANNED REPORT) documented in this encounter Advance Directives Documents on File Type Date Recorded Patient Java Systems Analyst Expl anation POLST 07/13/2023 4:08 PM POLST [...] Discussed due to patient's condition Care Teams Dumper Bailer Operator Relationship Specialty Start Date End Date Ray Royal MD [address] [place] [address] [place] [phone] PCP - General Family Medicine 10/22/18 documented as of this encounter
--- OUTSIDE RECORDS SUMMARY | 2023-09-20 05:43 | External Medical Summary | Summary of Care ---
Author Name Unknown Organization [facility] Address [address] [place] [address] Phone [phone] Care Team Providers Care Rn Gyn Name Role Phone Ray Royal MD Primary Care Provider [phone] Encounter Details Date Type Department Care Team (Late st Contact Info) Description 08/27/2023 Orders Only Hematology/Oncology Tisha Driver [place] 200 [facility] [place] [phone] Teto Torrez MD 200 [place] [address] Allergies No known active allergiesdocumented as of this encounter (statuses as of 09/01/2023) Medications Medication Sig Dispensed Refills Start Date [...] as of this encounter (statuses as of 09/01/2023) Active Problems Problem Noted Date Diagnosed Date [...] as of this encounter (statuses as of 09/01/2023) Immunizations Name Administration Dates Next Due COVID-19 mRNA, LNP-s, No Pre serve, 2-Dose Series ([employer] 02/23/2021,02/02/2021 HEP A - Hepatitis A (Adult > 18 yrs) 09/21/2020, 02/10/2020 Hepatitis B, 20+ yrs 09/21/2020,03/23/2020,02/09 Pneumococcal Conjugate Vacci ne, 20-valent ([id number]) 10/26/2022(Deferred: Patient Refused) Pneumococcal Polysaccharide PPV23 (Pneumovax) [...] Description 09/06/2023 12:30 PM EDT Laboratory Laboratory [address] [place] [phone] Neisha Lab [address] [place] [address] 09/06/2023 1:15 PM EDT Office Visit Hematology/Oncology [facility] [address] [place] [phone] Teto Torrez MD [address] [place], [place] [address] [address] 09/06/2023 1:45 PM EDT Hem/Onc Treatment Hematology/Oncology [address] [phone] Neisha, Chair 1 Hem Onc [address] [place] [address] 09/06/2023 3:00 PM EDT Office Visit Palliative Medicine [facility] [address] [phone] Shante Prado MD [address] [place] [address] [place] [phone] 11/15/2023 11:30 AM EDT Office Visit Urology, [facility] [address] [place] [address] Adolfo Key MD [address] [place] [address] [place] [address] Scheduled Procedures [...] 2 - PCV) 05/10/2022 05/10/2021 GFR 08/22/2024 08/22/2023, 07/28, 08/08/2023, Additional history exists Albumin/Creatinine Ratio 09/14/2025 023, 09/07/2021, 10/22/2018 Diabetes Screening 08/22/2026 08/22/2023, 0 08/15/2023, 08/08/2023, Additional history exists Lipid Panel 11/25/2027 11/24/2022, [...] this encounter Medical Devices Implanted Type Area Payroll Secretary Device Identifier Shelf Expiration Date Model / Serial / Lot Port Implant W/8f Poly Cath - [id number] Implanted:Qty : 1 on 12/01/2022 by Brad Cerda DO at OR [facility] Right: Chest CR BARD : PERIPHERAL VASCULAR [id number] 02/24/2024 [id number] / / [id number] System Urolift - [id number] Implanted:Qty : 6 on 05/31/2023 by Adolfo Key MD at OR [facility] [employer] 09/01/2023 [id number] / / [id number] Description:prostate documented as of this encounter Advance Directives Documents on File Type Date Recorded Patient Rug Frame Mounter Expl anation POLST 07/13/2023 4:08 PM POLST [...] Discussed due to patient's condition Care Teams Rn Gyn Relationship Specialty Start Date End Date Ray Royal MD [address] [place] [address] [place] [address] PCP - General Family Medicine 10/22/18 documented as of this encounter
--- OUTSIDE RECORDS SUMMARY | 2023-09-20 05:44 | External Medical Summary | Summary of Care ---
Author Name Unknown Organization [facility] Address [address] [place] [address] Phone [phone] Care Team Providers Care Pattern Developer Name Role Phone Ray Royal MD Primary Care Provider [phone] Reason for Visit * Reason Comments Outpatient Testing Encounter Details Date Type Department Care Team (Late st Contact Info) Description 09/01/2023 8:30 AM EST Laboratory Laboratory [address] [place] [phone] [place] [address] [employer] Other*[id number]; Adenocarcinoma of pancreas (HCC); Metastasis to liver (HCC); Sweating increase; Hypogonadism male Allergies No known active allergiesdocumented as of [...] mRNA, LNP-s, No Pre serve, 2-Dose Series ([facility]) 02/23/2021,02/02/2021 HEP A - Hepatitis A (Adult > 18 yrs) 09/21/2020, 02/10/2020 Hepatitis B, 20+ yrs 09/21/2020,03/23/2020,02/09 Pneumococcal Conjugate Vacci ne, 20-valent ([id number]) 10/26/2022(Deferred: Patient Refused) Pneumococcal Polysaccharide PPV23 (Pneumovax) [...] Description 09/06/2023 12:30 PM EDT Laboratory Laboratory [facility] [place] [address] [address] [place] [phone] Neisha, Lab [place] [address] Tisha [place] [address] 09/06/2023 1:15 PM EDT Office Visit Hematology/Oncology [facility] [place] [address] Tisha [address] [place] [phone] Teto Torrez MD [address] [place], [place] [address]jo[place] [address] 09/06/2023 1:45 PM EDT Hem/Onc Treatment Hematology/Oncology Treatment, [address] [phone] Neisha, Chair 1 Hem Onc [place] [address] [place] [address] 09/06/2023 3:00 PM EDT Office Visit Palliative Medicine [facility] [address] [place] [phone] Shante Prado MD [address] [facility] [place] [address] 11/15/2023 11:30 AM EDT Office Visit Urology, [facility] [address] [place] [address] Adolfo Key MD 27 [facility] [address] [place] [address] Pending Results Name Type Priority Associated Diagnoses Date /Time MYCODE SUBSEQUENT ADULT Lab Routine [employer] Other*[id number] 09/01/2023 8:27 AM EST TESTOSTERONE: TOTAL, FREE AND BIOAVAILABLE Lab Routine Adenocarcinoma of pancreas (HCC) Metastasis to liver (HCC) Sweating increase Hypogonadism male 09/01/2023 8:27 AM EST FSH Lab Routine Adenocarcinoma of pancreas (HCC) Metastasis to liver (HCC) Sweating increase Hypogonadism male 09/01/2023 8:27 AM EST LH Lab Routine Adenocarcinoma of pancreas (HCC) Metastasis to liver (HCC) Sweating increase Hypogonadism male 09/01/2023 8:27 AM EST PROLACTIN Lab Routine Adenocarcinoma of pancreas (HCC) Metastasis to liver (HCC) Sweating increase Hypogonadism male 09/01/2023 8:27 AM EST TSH WITH FREE T4 IF INDICATED Lab Routine Adenocarcinoma of pancreas (HCC) Metastasis to liver (HCC) Sweating increase Hypogonadism male 09/01/2023 8:27 AM EST MYCODE SST1 Lab Routine [employer] Other*[id number] 09/01/2023 8:27 AM EST MYCODE SST2 Lab Routine [employer] Other*[id number] 09/01/2023 8:27 AM EST Scheduled Procedures Name Priority Associated Diagnoses Date/Ti [...] this encounter Medical Devices Implanted Type Area Washroom Cleaner Device Identifier Shelf Expiration Date Model / Serial / Lot Port Implant W/8f Poly Cath - [id number] Implanted:Qty : 1 on 12/01/2022 by Brad Cerda DO at OR [facility] Right: Chest CR BARD : PERIPHERAL VASCULAR [id number] 02/24/2024 [id number] / / [id number] System U[employer] - [id number] Implanted:Qty : 6 on 05/31/2023 by Adolfo Key MD at OR [facility] [employer] 09/01/2023 [id number] / / [id number] Description:prostate documented as of this encounter Visit Diagnoses Diagnosis [employer] Other*[id number] Adenocarcinoma of pancreas (HCC) Malignant neoplasm of pancreas, part unspecified Metastasis to liver (HCC) Secondary malignant neoplasm of liver Sweating increase Generalized hyperhidrosis Hypogonadism male Other testicular hypofunction documented in this encounter Advance Directives Documents on File Type Date Recorded Patient Phlebotomist Medical Lab Assistant Expl anation POLST 07/13/2023 4:08 PM [...] Discussed due to patient's condition Care Teams Pattern Developer Relationship Specialty Start Date End Date Ray Royal MD [address] [place] [address] [place] [id number] PCP - General Family Medicine 10/22/18 documented as of this encounter
--- OUTSIDE RECORDS SUMMARY | 2023-09-20 05:44 | External Medical Summary ---
Author Name Unknown Address Unknown Organization K01:LABORATORY [facility] [place] - [address] [facility] [address] [facility] [address] Laboratory Report Ordering Provider Test Date Status TJ SMITH 09/01/2023 08:27:22 Final Observation Date Value Abnormality Reference (Units ) Status TSH 09/01/2023 08:27:22 2.03 0.27-4.20 (uIU/mL) Final Performing Location LABORATORY C - [address] [facility] [address]
--- OUTSIDE RECORDS SUMMARY | 2023-09-20 05:44 | External Medical Summary ---
Author Name Unknown Address Unknown Organization K01:LABORATORY [facility] [place] - [address] [place] [address] Laboratory Report Ordering Provider Test Date Status TJ SMITH 09/01/2023 08:27:22 Final Observation Date Value Abnormality Reference (Units ) Status Prolactin [Mass/volume] in Serum or Plasma by 3rd IS 09/01/2023 08:27:22 38.2 Above high normal 4.0-20.0 (ng/mL) Final Performing Location LABORATORY [facility] [place] - [address] [place] [address]
--- OUTSIDE RECORDS SUMMARY | 2023-09-20 05:44 | External Medical Summary ---
Author Name Unknown Address Unknown Organization K01:LABORATORY [facility] [place] - [address] [place] [address] Laboratory Report Ordering Provider Test Date Status TJ SMITH 09/01/2023 08:27:22 Final Observation Date Value Abnormality Reference (Units ) Status Follitropin [Units/volume] in Serum or Plasma by 2nd IRP 09/01/2023 08:27:22 23.6 Above high normal 1.5-12.4 (mIU/mL) Final Performing Location LABORATORY [facility] - [address] [place] [address]
--- OUTSIDE RECORDS SUMMARY | 2023-09-20 05:44 | External Medical Summary | Summary of Care ---
Author Name Unknown Organization [facility] Address [address] [place] [address] Phone [phone] Care Team Providers Care Airline Customer Service Agent Name Role Phone Ray Royal MD Primary Care Provider [phone] Reason for Visit * Reason Comments Chemotherapy C14/D1 - FOLFIRI * Evaluate & Treat - Unlimited Visits (Within 30 days (routine)) - Authorized Specialty Diagnoses / Procedures Referred By Mike velázquez Referred To Contact Hematology Oncology Diagnoses Gallbladder cancer (HCC) Procedures Eval/Treat Anabell rDiver PA-C [address] [place] [address] Referral ID Status Reason Start Date Expiration Date Visits Requested Visits Authorized [id number] Authorized Specialty Services Required 12/01/2022 12/06/[phone] Encounter Details Date Type Department Care Team (Latest Contact Info) Description 07/05/2023 11:30 AM EST Hem/Onc Treatment Hematology/Oncolog y Treatment, [address] [phone] Neisha, Chair 2 Hem On[address] [address] Adenocarcinoma of pancreas (HCC)*; Metastasis to liver (HCC); Encounter for antineoplastic chemotherapy Allergies No known active allergiesdocumented as of this encounter (statuses as of 08/23/2023) Medications Medication Sig Dispensed Refills Start Date [...] 3 Active Allopurinol 300 MG Oral Tablet (Zyloprim)Indicatio ns:Idiopathic chronic gout of multiple sites without tophus Take 1 Tablet by mouth in the morning. 90 Tablet 4 3 Active Omeprazole 20 MG Oral Capsule Delayed Release (PriLOSEC)Indicatio ns:Epigastric pain TAKE ONE CAPSULE BY MOUTH DAILY ONE HOUR BEFORE FIRST MEAL OF THE DAY 90 Capsule 2 3 Active Lisinopril 10 MG Oral Tablet (Prinivil)Indicatio [...] 3 Active Loratadine 10 MG Oral Tablet (Claritin)Indicatio ns:Adenocarcinoma of pancreas (HCC),Metastasis to liver (HCC) Take 1 tablet daily for 5 days starting the day before udenyca injection 30 Tablet 1 3 Active Finasteride 5 MG Oral Tablet (Proscar)Indication [...] 3 Active Silodosin 8 MG Oral Capsule (Rapaflo)Indication s:BPH with obstruction/lower urinary tract symptoms Take 1 Capsule by mouth in the morning. 30 Capsule 6 4 Active Baclofen 10 MG Oral Tablet (Lioresal)Indicatio ns:Cancer related pain Take 1 Tablet by mouth 2 times a day as needed for Muscle spasms. 30 Tablet 0 4 Active oxyCODONE HCl 5 MG Oral Tablet (Oxy IR)Indications:Yordy ocarcinoma of pancreas (HCC),Metastasis to liver (HCC) Take 1 Tablet by mouth every 8 hours as needed for Pain, Moderate. 60 Tablet 0 3 07/12/19 24 Discontinued oxyCODONE-Acetamino phen 10-325 MG Oral Tablet (Percocet)Indicatio ns:Cancer related pain Take 1 Tablet by mouth every 6 hours as needed for Pain, Moderate or Pain, Severe. 1 tablet every 4 hours or 2 tablets every 6 hours. 30 Tablet 0 4 07/12/19 24 Discontinued documented as of this encounter (statuses as of 08/23/2023) Active Problems Problem Noted Date Diagnosed Date [...] as of this encounter (statuses as of 08/23/2023) Immunizations Name Administration Dates Next Due COVID-19 mRNA, LNP-s, No Pre serve, 2-Dose Series ([employer]) 02/23/2021,02/02/2021 HEP A - Hepatitis A (Adult > 18 yrs) 09/21/2020, 02/10/2020 Hepatitis B, 20+ yrs 09/21/2020,03/23/2020,02/09 Pneumococcal Conjugate Vacci ne, 20-valent ([id number]) 10/26/2022(Deferred: Patient Refused) Pneumococcal Polysaccharide PPV23 (Pneumovax) [...] Nursing Notes * Elham Mcdowell RN - 07/05/2023 3:54 PM EST Chair 12. Patient saw Dr. Torrez today -- see OV note for details. Patient overall is having increased R side pain just below his ribs, for which he went to [place] ER twice since he was here last, in the last month. CT scan was [place] at [place] and did not show anything at thesite. Per Dr. Torrez, patient has PET scan to be done on Friday 07/07. Dr. Torrez would prefer patientto be disconnected from his 5FU pump at 10 am regardless if it is completed or not, then patient can drive to [place] for his PET scan for 1145. Patient communicated understanding regarding this plan. Patient is ordered Percocet (10 oxycodone/325 Tylenol) Q6 PRN, which was recently added/increased/adjusted just 1 week ago by palliative SHADE CLASSIFIER Rachel Rucker. Patient says he does not think the painmedication does anything because he is in pain now. RN educated he is probably in pain because he has not taken any of his pain medication -- patient has not had any pain medication yet today. Patient says he takes it at bedtime and in the morning typically but could not remember how this medication was ordered for him to take daily, will review how to take his pain medication. Patient says afterhe takes the medication, he falls asleep but after he wakes up, he feels the pain comes back. Patient was not able to say about how long after taking the pain medication, that the pain comes back. RNeducated to try and keep track of when he takes his pain medicine and how long after taking this, the pain comes back. Patient says the pain is a sharp stabbing pain that is intermittent but much worse when twisting/turning/taking a deep breath. Will assess PET scan results and reinforce teaching about taking his pain medication. Chemo agents Irinotecan, 5FU, leucovorin ABN Labs WNL for tx Alt in Tx: N/A Return in 2 days for pump d/c Safety and Risk for Injury Patient will remain free from injury. Ensure appropriate safety devices are available. Provide and maintain safe environment. Goals: Patient will remain free from injury. Possible barriers to meeting goals: ambulating with IV pole, neuropathy Stability of the patient: Moderately stable - low risk of patient condition declining or worsening Summary regarding today's goals: Met: pt remained free of harm today Functional status at today's visit: Restricted in [...] adverse side effects during treatment. Patient tolerated treatment well without any acute issues or problems. 5FU pump connected by ROBERTO ROSSI. Pt to return at 10 am Friday 07/07 for d/c. Patient left facility in stable condition and denied any further needs. Per Dr. Torrez -- since patient needs to get pump d/c'd at 10am Monday, will not give hydration withhis d/c this time. documented in this encounter Plan of Treatment Upcoming Encounters Date Type Department Care Team (Late st Contact Info) Description 09/06/2023 12:30 PM EDT Laboratory Laboratory Tisha Driver [place] [address] [place] [phone] Neisha, Lab [facility] 200 [facility] [place] [address] 09/06/2023 1:15 PM EDT Office Visit Hematology/Oncology [facility] 200 [facility] [place] [phone] Teto Torrez MD 200 [facility] [place] [address] 09/06/2023 1:45 PM EDT Hem/Onc Treatment Hematology/Oncology Treatment, [place] [address] [place] [address] Neisha, Chair 1 Hem Onc [address] [place] [address] 09/06/2023 3:00 PM EDT Office Visit Palliative Medicine [facility] 200 [place] [address] Shante Prado MD 400 [facility] [place] [address] 11/15/2023 11:30 AM EDT Office Visit Urology, [facility] 132 [facility] [place] [address] Adolfo Key MD 27 [facility] [address] [place] [phone] Scheduled Procedures Name Priority Associated Diagnoses Date/Ti [...] this encounter Medical Devices Implanted Type Area Senior Online Marketing Manager Device Identifier Shelf Expiration Date Model / Serial / Lot Port Implant W/8f Poly Cath - [id number] Implanted:Qty : 1 on 12/01/2022 by Brad Cerda DO at OR [facility] Right: Chest CR BARD : PERIPHERAL VASCULAR [id number] 02/24/2024 [id number] / / [id number] System [employer] - [id number] Implanted:Qty : 6 on 05/31/2023 by Adolfo Key MD at OR [facility] [employer] 09/01/2023 [id number] / / [id number] Description:prostate documented as of this encounter Visit Diagnoses Diagnosis Adenocarcinoma of pancreas (HCC)- Primary Malignant neoplasm of pancreas, part unspecified Metastasis to liver (HCC) Secondary malignant neoplasm of liver Encounter for antineoplastic chemotherapy documented in this encounter Administered Medications Inactive Administered Medications - up to 3 most recent administrations Medication Order MAR Action Action Date Dose Rate Site Atropine sulfate inj 0.4 mg 0.4 mg, IV Push, ONCE, On Mon07/05/23 at 1215, For 1 dose, Give before CPT-11 Given 07/05/2023 12:31 PM EST 0.4 mg D5W IV solution Intravenous, at 50 mL/hr, CONTINUOUS, Starting on Mon07/05/23 at 1215, Until Mon07/05/23 at 2040 Start Infusion 07/05/2023 11:45 AM EST 500 mL 50 mL/hr dexAMETHasone (Decadron) tab 12 mg 12 mg, Oral, ONCE, On Mon07/05/23 at 1215, For 1 dose Given 07/05/2023 11:55 AM EST 12 mg Fluorouracil (5-Fu) 6,100 mg for Home Infusion 6,100 mg (rounded from 6,096 mg = 2,400 mg/m2 2.54 m2 Treatment Plan BSA from Recorded weight), Intravenous, Administer over 46 Hours, Home Infusion Pharmacy to specify base solution and volume., ONCE, 1 dose, On Mon07/05/23 at 1230 Start Infusion 07/05/2023 2:11 PM EST 6,100 mg 5 mL/hr irinotecan HCl (Camptosar) 380 mg in D5W 500 mL infusion 380 mg (rounded from 381 mg = 150 mg/m2 2.54 m2 Treatment Plan BSA from Recorded weight), IV Piggyback, ONCE, 1 dose, On Mon07/05/23 at 1215, Administer over 90 Minutes, PROTECT FROM LIGHT Start Infusion 07/05/2023 12:32 PM EST 380 mg 333.33 mL/hr leucovorin calcium 1,000 mg in D5W 250 mL INFUSION 1,000 mg (rounded from 1,016 mg = 400 mg/m2 2.54 m2 Treatment Plan BSA from Recorded weight), IV Piggyback, ONCE, 1 dose, On Mon07/05/23 at 1215, Administer over 90 Minutes, Run concurrently with irinotecan immediately prior to 5FU Start Infusion 07/05/2023 12:32 PM EST 1,000 mg 166.67 mL/hr Palonosetron (Aloxi) inj SOLN 0.25 mg 0.25 mg, IV Push, ONCE, On Mon07/05/23 at 1215, For 1 dose, Restricted per S antiemetic guidelines Given 07/05/2023 11:54 AM EST 0.25 mg documented in this encounter Advance Directives Documents on File Type Date Recorded Patient Client Experience Manager Expl anation POLST 07/13/2023 4:08 PM POLST [...] Discussed due to patient's condition Care Teams Airline Customer Service Agent Relationship Specialty Start Date End Date Ray Royal MD [address] [place] [address] [place] [address] PCP - General Family Medicine 10/22/18 documented as of this encounter
--- OUTSIDE RECORDS SUMMARY | 2023-09-20 05:44 | External Medical Summary | Summary of Care ---
Author Name Unknown Organization [facility] Address [address] [place] [address] Phone [phone] Care Team Providers Care Payroll Accounting Specialist Name Role Phone Ray Royal MD Primary Care Provider + [phone] Reason for Visit * Reason Comments Chemotherapy C14/D1 - FOLFIRI * Evaluate & Treat - Unlimited Visits (Within 30 days (routine)) - Authorized Specialty Diagnoses / Procedures Referred By Mike velázquez Referred To Contact Hematology Oncology Diagnoses Gallbladder cancer (HCC) Procedures Eval/Treat Anabell Driver PA-C [address] [place] [address] Referral ID Status Reason Start Date Expiration Date Visits Requested Visits Authorized [id number] Authorized Specialty Services Required 12/01/2022 12/06/[phone] Encounter Details Date Type Department Care Team (Latest Contact Info) Description 07/05/2023 11:30 AM EST Hem/Onc Treatment Hematology/Oncolog y Treatment, [address] [address] Neisha, Chair 2 Hem On[address] [address] Adenocarcinoma of pancreas (HCC)*; Metastasis to liver [...] mRNA, LNP-s, No Pre serve, 2-Dose Series (Kabam) 02/23/2021,02/02/2021 HEP A - Hepatitis A (Adult > 18 yrs) 09/21/2020, 02/10/2020 Hepatitis B, 20+ yrs 09/21/2020,03/23/2020,02/09 Pneumococcal Conjugate Vacci ne, 20-valent ([id number]) 10/26/2022(Deferred: Patient Refused) Pneumococcal Polysaccharide PPV23 (Pneumovax) [...] his ribs, for which he went to [place] ER twice since he was here last, in the last month. CT scan was [place] at [place] and did not show anything at thesite. Per Dr. Torrez, patient has PET scan to be done on Friday 07/07. Dr. Torrez would prefer patientto be disconnected from his 5FU pump at 10 am regardless if it is completed or not, then patient can drive to [place] for his PET scan for 1145. Patient communicated understanding regarding this plan. Patient is ordered Percocet (10 oxycodone/325 Tylenol) Q6 PRN, which was recently added/increased/adjusted just 1 week ago by palliative CREW CALLER Rachel Rucker. Patient says he does not [...] 12:30 PM EDT Laboratory Laboratory Tisha Driver [place] [address] [place] [phone] Neisha, Lab [facility] 200 [place] [address] 09/06/2023 1:15 PM EDT Office Visit Hematology/Oncology [facility] 200 [place] [phone] Teto Torrez MD 200 [place] [address] 09/06/2023 1:45 PM EDT Hem/Onc Treatment Hematology/Oncology Treatment, [place] [address] [place] [address] Neisha, Chair 1 Hem Onc [address] [place] [address] 09/06/2023 3:00 PM EDT Office Visit Palliative Medicine [facility] 200 [place] [address] Shante Prado MD 400 [facility] [place] [address] 11/15/2023 11:30 AM EDT Office Visit Urology, [facility] 132 [facility] [place] [address] Adolfo Key MD 27 [facility] [address] [id number] Scheduled Procedures Name Priority Associated Diagnoses Date/Ti [...] this encounter Medical Devices Implanted Type Area Opener Verifier Packer Customs Device Identifier Shelf Expiration Date Model / Serial / Lot Port Implant W/8f Poly Cath - [id number] Implanted:Qty : 1 on 12/01/2022 by Brad Cerda DO at OR [facility] Right: Chest CR BARD : PERIPHERAL VASCULAR [id number] 02/24/2024 [id number] / / [id number] System Urolift - [id number] Implanted:Qty : 6 on 05/31/2023 by Adolfo Key MD at OR [facility] [employer] 09/01/2023 [id number] / / [id number] Description:prostate documented as of this encounter Visit [...] Documents on File Type Date Recorded Patient Track Fitter Expl anation POLST 07/13/2023 4:08 PM POLST [...] Discussed due to patient's condition Care Teams Payroll Accounting Specialist Relationship Specialty Start Date End Date Ray Royal MD [address] [place] [address] [place] [address] PCP - General Family Medicine 10/22/18 documented as of this encounter
--- OUTSIDE RECORDS SUMMARY | 2023-09-20 05:44 | External Medical Summary | Summary of Care ---
Author Name Unknown Organization [facility] Address [address] [place] [address] Phone [phone] Care Team Providers Care Paper Carrier Name Role Phone Ray Royal MD Primary Care Provider [phone] Reason for Visit * Reason Onset Date Comments Test Results 08/28/2023 Encounter Details Date Type Department Care Team (Late st Contact Info) Description 08/28/2023 Telephone Hematology/Oncology [facility] [address] [place] [address] Teto Torrez MD [address] [facility] [address] Test Results Allergies No known active allergiesdocumented as of this encounter (statuses as of 08/28/2023) Medications Medication Sig Dispensed Refills Start Date [...] 06/28/2023 Active Ondansetron HCl 8 MG Oral TabletIndications:Majr nocarcinoma of pancreas (HCC),Metastasis to liver (HCC) [...] as of this encounter (statuses as of 08/28/2023) Active Problems Problem Noted Date Diagnosed Date [...] as of this encounter (statuses as of 08/28/2023) Immunizations Name Administration Dates Next Due COVID-19 mRNA, LNP-s, No Pre serve, 2-Dose Series (RuffaloCODY) 02/23/2021,02/02/2021 HEP A - Hepatitis A (Adult > 18 yrs) 09/21/2020, 02/10/2020 Hepatitis B, 20+ yrs 09/21/2020,03/23/2020,02/09 Pneumococcal Conjugate Vacci ne, 20-valent ([id number]) 10/26/2022(Deferred: Patient Refused) Pneumococcal Polysaccharide PPV23 (Pneumovax) [...] encounter Miscellaneous Notes * Telephone Encounter - Anabell Marroquin LPN - 08/28/2023 1:53 PM EST Called and spoke with patient, reviewed test results. Patient verbalized understanding. * Telephone Encounter - Anabell Marroquin LPN - 08/28/2023 1:47 PM EST ----- Message from Teto Torrez MD sent at 08/27/2023 6:58 PM EST ----- Total testosterone level is 198 but free testosterone level is on the lower side around 14.6, bio available testosterone is also lower side around 26.6. I put ask a doc consultation with Endocrinology. documented in this encounter Plan of Treatment Upcoming Encounters Date Type Department Care Team (Late st Contact Info) Description 09/06/2023 12:30 PM EDT Laboratory Laboratory Tisha Driver [place] [address] [place], [place] [phone] Patricio Driver [place] [address] [place], [place] [address] 09/06/2023 1:15 PM EDT Office Visit Hematology/Oncology [facility] 200 [facility] [place] [phone] Teto Torrez MD 200 [facility] [place] [address] 09/06/2023 1:45 PM EDT Hem/Onc Treatment Hematology/Oncology Treatment, [address] [phone] Neisha, Chair 1 Hem Onc [address] [place] [address] 09/06/2023 3:00 PM EDT Office Visit Palliative Medicine [facility] 200 [place] [phone] Shante Prado MD [address] [place] [address] [place] [address] 11/15/2023 11:30 AM EDT Office Visit Urology, [facility] 132 [facility] [place] [address] Adolfo Key MD [address] [address] [place] [address] Scheduled Procedures Name Priority Associated Diagnoses [...] this encounter Medical Devices Implanted Type Area Farm Machine Operator Device Identifier Shelf Expiration Date Model / Serial / Lot Port Implant W/8f Poly Cath - [id number] Implanted:Qty : 1 on 12/01/2022 by Brad Cerda DO at OR [facility] Right: Chest CR BARD : PERIPHERAL VASCULAR [id number] 02/24/2024 [id number] / / [id number] System Urolift - [id number] Implanted:Qty : 6 on 05/31/2023 by Adolfo Key MD at OR [facility] [employer] 09/01/2023 [id number] / / [id number] Description:prostate documented as of this encounter Advance Directives Documents on File Type Date Recorded Patient Tank Inspector Expl anation POLST 07/13/2023 4:08 PM POLST [...] Discussed due to patient's condition Care Teams Paper Carrier Relationship Specialty Start Date End Date Ray Royal MD [address] [place] [address] [place] [address] PCP - General Family Medicine 10/22/18 documented as of this encounter
--- OUTSIDE RECORDS SUMMARY | 2023-09-20 05:44 | External Medical Summary | Summary of Care ---
Author Name Unknown Organization [facility] Address [address] [place] [address] Phone [phone] Care Team Providers Care Forest Pathology Professor Name Role Phone Ray Royal MD Primary Care Provider + [phone] Encounter Details Date Type Department Care Team (Late st Contact Info) Description 08/25/2023 Refill Hematology/Oncology Treatment, [place] [address] [place] [address] Nikole Franklin MD [address] [place] [address] Cancer related pain Allergies No known active allergiesdocumented as of [...] before bedtime. 30 Tablet 0 08/28/2023 Active oxyCODONE HCl 10 MG Oral Tablet [...] mRNA, LNP-s, No Pre serve, 2-Dose Series (InSupply) 02/23/2021,02/02/2021 HEP A - Hepatitis A (Adult > 18 yrs) 09/21/2020, 02/10/2020 Hepatitis B, 20+ yrs 09/21/2020,03/23/2020,02/09 Pneumococcal Conjugate Vacci ne, 20-valent ([id number]) 10/26/2022(Deferred: Patient Refused) Pneumococcal Polysaccharide PPV23 (Pneumovax) [...] encounter Miscellaneous Notes * Telephone Encounter - Nikole Franklin MD - 08/28/2023 9:25 AM EST Signed Prescriptions: Disp Refills oxyCODONE HCl 10 MG Oral Tablet (Roxicodon*60 Tab*0 Sig: Take 1Tablet by mouth every 4 hours as needed for Pain, Severe.Authorizing Provider: NIKOLE FRANKLIN Morphine Sulfate ER 30 MG Oral Tablet Exte*30 Tab*0 Sig: Take 1 Tablet by mouth in the morning and 1 Tablet before bedtime.Authorizing Provider: NIKOLE FRANKLIN * Telephone Encounter - Mariana Michele LPN - 08/28/2023 9:00 AM EST At last visit the morphine was stopped as he was not taking it Call to patient He restarted the morphine about 2 weeks ago-taking BID Still taking the oxycodone BID Did inform patient he needs to call us before changing/restarting a medication Also advised patient he can take the oxycodone up to every 4 hours as needed He states he is completely out of both Re-educated patient that we do not work weekends and if going to run out on a weekend needs to callus 2-3 days ahead of time to ensure medications are sent to pharmacy in a timely manner I have reviewed the patients controlled substance dispensing history in the Prescription Drug Monitoring Program in compliance with the [facility] regulations before prescribing a controlled substance. Were any discrepancies found:no Last prescribed Oxycodone: 08/08, Morphine: 07/12 Last Filled Oxycodone: 08/08, Morphine: 07/12 * Telephone Encounter - Starla Casanova RN - 08/25/2023 3:25 PM EST Received faxed refill requests from [facility] for oxycodone 10mg tablets and morphine sulf ER 30mg tablets. documented in this encounter Plan of Treatment Upcoming Encounters Date Type Department Care Team (Late st Contact Info) Description 09/06/2023 12:30 PM EDT Laboratory Laboratory State [facility] C[place] [address] [place] [address] [place] [address] [place] [address] [address] 09/06/2023 1:15 PM EDT Office Visit Hematology/Oncology [facility] [place] [address] [place] [address] [phone] Teto Torrez MD 200 [facility] [place] [address] 09/06/2023 1:45 PM EDT Hem/Onc Treatment Hematology/Oncology Treatment, [place] 200 [facility] [place] [address] Neisha, Chair [address] Hem On[address] [place] [address] 09/06/2023 3:00 PM EDT Office Visit Palliative Medicine [facility] [place] 200 [facility] [place] [address] Nikole Franklin MD 400 [facility] [place] [address] 11/15/2023 11:30 AM EDT Office Visit Urology, [facility] 132 [facility] [place] [address] Adolfo Key MD 27 [facility] [address] [place] [address] Scheduled Procedures Name Priority Associated Diagnoses [...] this encounter Medical Devices Implanted Type Area Contact Lens Technician Device Identifier Shelf Expiration Date Model / Serial / Lot Port Implant W/8f Poly Cath - [id number] Implanted:Qty : 1 on 12/01/2022 by Brad Cerda DO at OR [facility] Right: Chest CR BARD : PERIPHERAL VASCULAR [id number] 02/24/2024 [id number] / / [id number] System Urolift - [id number] Implanted:Qty : 6 on 05/31/2023 by Adolfo Key MD at OR [facility] [employer] 09/01/2023 [id number] / / [id number] Description:prostate documented as of this encounter Visit Diagnoses Diagnosis Cancer related pain Neoplasm related pain (acute) (chronic) documented in this encounter Advance Directives Documents on File Type Date Recorded Patient Research Statistician Expl anation POLST 07/13/2023 4:08 PM POLST (Acde ited DNR) Latest Code Status on File [...] Discussed due to patient's condition Care Teams Forest Pathology Professor Relationship Specialty Start Date End Date Ray Royal MD [address] [place] [address] [place] [address] PCP - General Family Medicine 10/22/18 documented as of this encounter
--- OUTSIDE RECORDS SUMMARY | 2023-09-20 05:44 | External Medical Summary | Summary of Care ---
Author Name Unknown Organization [facility] Address [address] [place] [address] Phone [phone] Care Team Providers Care Underpresser Hand Name Role Phone Ray Royal MD Primary Care Provider [phone] Encounter Details Date Type Department Care Team (Late st Contact Info) Description 08/31/2023 Orders Only Hematology/Oncology [place] 200 [facility] [place] [address] Teto Torrez MD 200 [facility] [address] Adenocarcinoma of pancreas (HCC)*; Metastasis to liver (HCC); Sweating increase; Hypogonadism male Allergies No known active allergiesdocumented as of this encounter (statuses as of 08/31/2023) Medications Medication Sig Dispensed Refills Start Date [...] as of this encounter (statuses as of 08/31/2023) Active Problems Problem Noted Date Diagnosed Date [...] as of this encounter (statuses as of 08/31/2023) Immunizations Name Administration Dates Next Due COVID-19 mRNA, LNP-s, No Pre serve, 2-Dose Series (StyleZen) 02/23/2021,02/02/2021 HEP A - Hepatitis A (Adult > 18 yrs) 09/21/2020, 02/10/2020 Hepatitis B, 20+ yrs 09/21/2020,03/23/2020,02/09 Pneumococcal Conjugate Vacci ne, 20-valent ([id number]) 10/26/2022(Deferred: Patient Refused) Pneumococcal Polysaccharide PPV23 (Pneumovax) [...] Progress Notes * Teto Torrez MD - 08/31/2023 10:12 AM EST Received recommendations from Endocrinology for low testosterone level as follows: 1. Recheck testosterone battery + check FSH LH prolactin at 8AM 2. Would also check TSH with reflex FT4 given sweating 3. Refer to Endocrinology if repeat free testosterone low - I would like to get testosterone, FSH, LH, prolactin, TSH with free T4 checkup at 8:00 a.m. in the morning blood test ( ordered). documented in this encounter Plan of Treatment Upcoming Encounters Date Type Department Care Team (Late st Contact Info) Description 09/06/2023 12:30 PM EDT Laboratory Laboratory [facility] [place] [address] [phone] Neisha Lab [facility] [place] [address] 09/06/2023 1:15 PM EDT Office Visit Hematology/Oncology Tisha [place] [phone] Teto Torrez MD [address] [place] [place] [address] 09/06/2023 1:45 PM EDT Hem/Onc Treatment Hematology/Oncology Treatment, [place] 200 [place] [phone] Neisha, Chair [address] [address] 09/06/2023 3:00 PM EDT Office Visit Palliative Medicine [facility] 200 [place] [address] Shante Prado MD 400 [facility] [place] [address] 11/15/2023 11:30 AM EDT Office Visit Urology, [facility] 132 [facility] [place] [address] Adolfo Key MD [address] [place] [address] [place] [id number] Scheduled Orders Name Type Priority Associated Diagnoses Orde r Schedule TESTOSTERONE: TOTAL, FREE AND BIOAVAILABLE Lab Routine Adenocarcinoma of pancreas (HCC) Metastasis to liver (HCC) Sweating increase Hypogonadism male Expected: 09/14/2023, Expires: 08/30/2024 FSH Lab Routine Adenocarcinoma of pancreas (HCC) Metastasis to liver (HCC) Sweating increase Hypogonadism male Expected: 09/14/2023, Expires: 08/30/2024 LH Lab Routine Adenocarcinoma of pancreas (HCC) Metastasis to liver (HCC) Sweating increase Hypogonadism male Expected: 09/14/2023, Expires: 08/30/2024 PROLACTIN Lab Routine Adenocarcinoma of pancreas (HCC) Metastasis to liver (HCC) Sweating increase Hypogonadism male Expected: 09/14/2023, Expires: 08/30/2024 TSH WITH FREE T4 IF INDICATED Lab Routine Adenocarcinoma of pancreas (HCC) Metastasis to liver (HCC) Sweating increase Hypogonadism male Expected: 09/14/2023, Expires: 08/30/2024 Scheduled Procedures Name Priority Associated Diagnoses Date/Ti [...] this encounter Medical Devices Implanted Type Area Tire Recapper Device Identifier Shelf Expiration Date Model / Serial / Lot Port Implant W/8f Poly Cath - [id number] Implanted:Qty : 1 on 12/01/2022 by Brad Cerda DO at OR [facility] Right: Chest CR BARD : PERIPHERAL VASCULAR [id number] 02/24/2024 [id number] / / [id number] System Urolift - [id number] Implanted:Qty : 6 on 05/31/2023 by Adolfo Key MD at OR [facility] [employer] 09/01/2023 [id number] / / [id number] Description:prostate documented as of this encounter Visit Diagnoses Diagnosis Adenocarcinoma of pancreas (HCC)- Primary Malignant neoplasm of pancreas, part unspecified Metastasis to liver (HCC) Secondary malignant neoplasm of liver Sweating increase Generalized hyperhidrosis Hypogonadism male Other testicular hypofunction documented in this encounter Advance Directives Documents on File Type Date Recorded Patient Biologics Specialist Expl anation POLST 07/13/2023 4:08 PM POLST [...] Discussed due to patient's condition Care Teams Underpresser Hand Relationship Specialty Start Date End Date Ray Royal MD [address] [place] [address] [place] [phone] PCP - General Family Medicine 10/22/18 documented as of this encounter
--- OUTSIDE RECORDS SUMMARY | 2023-09-20 05:44 | External Medical Summary | Summary of Care ---
Author Name Unknown Organization [facility] Address [address] [place] [address] Phone [phone] Care Team Providers Care Tool Operator Name Role Phone Ray Royal MD Primary Care Provider [phone] Reason for Visit * Reason Onset Date Comments Test Results 08/28/2023 Encounter Details Date Type Department Care Team (Late st Contact Info) Description 08/28/2023 Telephone Hematology/Oncology [facility] [address] [place] [address] Teto Torrez MD [address] [facility] [address] Test Results Allergies No known active allergiesdocumented [...] mRNA, LNP-s, No Pre serve, 2-Dose Series ([place] Work Study) 02/23/2021,02/02/2021 HEP A - Hepatitis A (Adult > 18 yrs) 09/21/2020, 02/10/2020 Hepatitis B, 20+ yrs 09/21/2020,03/23/2020,02/09 Pneumococcal Conjugate Vacci ne, 20-valent (Cobuvty12) 10/26/2022(Deferred: Patient Refused) Pneumococcal Polysaccharide PPV23 (Pneumovax) [...] Telephone Encounter - Anabell Marroquin LPN - 08/31/2023 3:[address] Torrez, patient can take Immodium for his Diarrhea, to increase his fluid intake to prevent dehydration, and to monitor his symptoms. Called and spoke with patient, advised patient of recommendations per Dr. Torrez. Patient continues to deny any complaints of nausea or vomiting at this time. Per patient request rescheduled his lab appointment to tomorrow at [facility]. Educated patient to fast for 8-hours prior to his lab work. Patient verbalized understanding and is to call the office with any change in status. * Telephone Encounter - Anabell Marroquin LPN - 08/31/2023 3:[address] Torrez from Endocrinology, 08/31/2023: "Received recommendations from Endocrinology for low testosterone level as follows: 1. Recheck testosterone battery + check FSH LH prolactin at 8AM 2. Would also check TSH with reflex FT4 given sweating 3. Refer to Endocrinology if repeat free testosterone low - I would like to get testosterone, FSH, LH, prolactin, TSH with free T4 checkup at 8:00 a.m. in the morning blood test ( ordered)." 3:40 pm: Called and spoke with patient, informed patient recommendations from Endocrinology. Patient verbalized understanding and is agreeable to early AM lab appointment. Patient complains of new onset diarrhea, sweating since this morning, "feeling feverish", and also states he has been "constipated". Patient denies taking any immodium at this time, states the diarrhea is "runny". Patient denies any complaints of nausea or vomiting, denies any complaint of abdominal pain or discomfort. Patient states he has been able to eat and drink. Patient also states he has "been constipated lately". Will speak with Provider for recommendations. * Telephone Encounter - Anabell Marroquin LPN [...] Description 09/01/2023 8:30 AM EST Laboratory Laboratory [address] [place] [phone] [place] [address] 09/06/2023 12:30 PM EDT Laboratory Laboratory Tisha Driver [place] [address] [place] [address] Patricio Driver [address] [place] [address] 09/06/2023 1:15 PM EDT Office Visit Hematology/Oncology [facility] 200 [place] [address] Teto Torrez MD 200 [place] [address] 09/06/2023 1:45 PM EDT [facility] 200 [place] [address] Neisha, Chair 1 Hem Onc [address] [place] [address] 09/06/2023 3:00 PM EDT Office Visit Palliative Medicine [address] [place] [address] Shante Prado MD 400 [facility] [place] [address] 11/15/2023 11:30 AM EDT Office Visit Urology, [facility] 132 [facility] [place] [address] Adolfo Key MD [address] [address] [place] [address] Scheduled Procedures Name Priority Associated Diagnoses [...] encounter Medical Devices Implanted Type Area Farm Labor Contractor Device Identifier Shelf Expiration Date Model / Serial / Lot Port Implant W/8f Poly Cath - [id number] Implanted:Qty : 1 on 12/01/2022 by Brad Cerda DO at OR [facility] Right: Chest CR BARD : PERIPHERAL VASCULAR [id number] 02/24/2024 [id number] / / [id number] System Urolift - [id number] Implanted:Qty : 6 on 05/31/2023 by Adolfo Key MD at OR [facility] [employer] 09/01/2023 [id number] / / [id number] Description:prostate documented as of this encounter Advance Directives Documents on File Type Date Recorded Patient Air Conditioning Installer Tracie guthrie POLST 07/13/2023 4:08 PM POLST [...] Discussed due to patient's condition Care Teams Tool Operator Relationship Specialty Start Date End Date Ray Royal MD [address] [place] [address] [place] [id number] PCP - General Family Medicine 10/22/18 documented as of this encounter
--- OUTSIDE RECORDS SUMMARY | 2023-09-20 05:44 | External Medical Summary ---
Author Name Unknown Address Unknown Organization K01:[facility] [place] [address] [facility] [address] Laboratory Report Ordering Provider Test Date Status NGUYEN LIU 09/01/2023 08:27:22 Final Observation Date Value Abnormality Reference (Units ) Status MYCODE SPECIMEN-SST 09/01/2023 08:27:22 Freezing of extracted DNA, whole blood and/or serum. Final Performing Location LABORATORY C - [address] [facility] [address]
--- OUTSIDE RECORDS SUMMARY | 2023-09-20 05:44 | External Medical Summary ---
Author Name Unknown Address Unknown Organization K01:LABORATORY [facility] [place] - [address] [facility] [address] Laboratory Report Ordering Provider Test Date Status NGUYEN LIU 09/01/2023 08:27:22 Final Observation Date Value Abnormality Reference (Units ) Status MYCODE SPECIMEN-SST 09/01/2023 08:27:22 Freezing of extracted DNA, whole blood and/or serum. Final Performing Location LABORATORY C - [address] [facility] [address]
--- OUTSIDE RECORDS SUMMARY | 2023-09-20 05:44 | External Medical Summary ---
Author Name Unknown Address Unknown Organization K01:[facility] [place] - [facility] [address] [facility] - [facility] [address] Laboratory Report Ordering Provider Test Date Status TJ SMITH 09/01/2023 08:27:22 Final Observation Date Value Abnormality Reference (Units ) Status Albumin 09/01/2023 08:27:22 3.5 Below low normal 3.8-5.0 (g/dL) Final Sex Hormone Binding Globulin 09/01/2023 08:27:22 149 Above high normal 12-91 (nmol/L) Final Testosterone [Mass/volume] in Serum or Plasma 09/01/2023 08:27:22 125.1 Below low normal 193.0-740.0 (ng/dL) Final Free Testosterone, calculated 09/01/2023 08:27:22 7.6 Below low normal 35.0-130.0 (pg/mL) Final Bioavailable Testosterone, calculated 09/01/2023 08:27:22 14.6 Below low normal 79.0-335.0 (ng/dL) Final Performing Location LAB[facility] [place] - [facility] [address]
--- OUTSIDE RECORDS SUMMARY | 2023-09-20 05:44 | External Medical Summary ---
Author Name Unknown Address Unknown Organization K01:LABORATORY C - [address] [facility] [address] Laboratory Report Ordering Provider Test Date Status TJ SMITH 09/01/2023 08:27:22 Final Observation Date Value Abnormality Reference (Units ) Status 09/01/2023 08:27:22 18.6 Above high normal 1. 7-8.6 (mIU/mL) Final Performing Location LABORATORY [facility] - [address] [facility] [address]
--- OUTSIDE RECORDS SUMMARY | 2023-09-20 05:45 | External Medical Summary | Summary of Care ---
Author Name Unknown Organization [facility] Address [address] [place] [address] Phone [phone] Care Team Providers Care Epidemiologist Name Role Phone Ray Royal MD Primary Care Provider + [phone] Reason for Visit * Reason Comments Outpatient Testing Encounter Details Date Type Department Care Team (Late st Contact Info) Description 08/22/2023 8:50 AM EST Laboratory Laboratory [facility] [address] [place] [address] [facility] [address] [place] [address] Adenocarcinoma of pancreas (HCC); Metastasis to liver (HCC) Allergies No known active allergiesdocumented as of this encounter (statuses as of 08/22/2023) Medications Medication Sig Dispensed Refills Start Date [...] for Pain, Severe. 60 Tablet 0 08/08/2023 Active Senna 8.6 MG Oral TabletIndications:Con stipation due to pain medication Take 2 Tablets by mouth at bedtime. 60 Tablet 0 08/09/2023 Active Polyethylene Glycol 3350 17 GM/SCOOP Oral Powder (MiraLax)Indications: Constipation due to pain medication Take 17 g by mouth in the morning. 255 g 0 08/09/2023 Active documented as of this encounter (statuses as of 08/22/2023) Active Problems Problem Noted Date Diagnosed Date Dehydration 08/09/2023 Food insecurity 06/05/2023 Overview: Per [facility] Protocol Urethral stricture 04/03/2023 Slow urinary [...] as of this encounter (statuses as of 08/22/2023) Immunizations Name Administration Dates Next Due COVID-19 mRNA, LNP-s, No Pre serve, 2-Dose Series (CertusNet) 02/23/2021,02/02/2021 HEP A - Hepatitis A (Adult > 18 yrs) 09/21/2020, 02/10/2020 Hepatitis B, 20+ yrs 09/21/2020,03/23/2020,02/09 Pneumococcal Conjugate Vacci ne, 20-valent ([id number]) 10/26/2022(Deferred: Patient Refused) Pneumococcal Polysaccharide PPV23 (Pneumovax) [...] Care Team (Late st Contact Info) Description 08/30/2023 7:40 AM EST Laboratory Laboratory [address] [place] [phone] [facility] [address] [place] [address] 08/30/2023 8:45 AM EST Office Visit Hematology/Oncology [address] [place] [phone] Teto Torrez MD [address] [place], [place] [address] [address] 08/30/2023 9:15 AM EST Hem/Onc Treatment Hematology/Oncology [address] [phone] Neisha, Chair 4 Hem Onc [address] [place] [address] 09/06/2023 3:00 PM EDT Office Visit Palliative Medicine [facility] [address] [phone] Shante Prado MD [address] [place] [address] [place] [address] 11/15/2023 11:30 AM EDT Office Visit Urology, [facility] [address] [place] [address] Adolfo Key MD 27 [facility] [address] [place] [address] [address] Pending Results Name Type Priority Associated Diagnoses Date /Time CBC WITH WBC DIFFERENTIAL Lab STAT Adenocarcinoma of pancreas (HCC) Metastasis to liver (HCC) 08/22/2023 10:40 AM EST COMPREHENSIVE METABOLIC PANEL Lab STAT Adenocarcinoma of pancreas (HCC) Metastasis to liver (HCC) 08/22/2023 10:40 AM EST CBC Lab STAT Adenocarcinoma of pancreas (HCC) Metastasis to liver (HCC) 08/22/2023 10:40 AM EST DIFFERENTIAL, AUTOMATED Lab STAT Adenocarcinoma of pancreas (HCC) Metastasis to liver (HCC) 08/22/2023 10:40 AM EST Scheduled Procedures Name Priority Associated [...] of 2 - PCV) 05/10/2022 05/10/2021 GFR 08/15/2024 08/15/2023, 07/27, 07/25/2023, Additional history exists Albumin/Creatinine Ratio 09/14/2025 023, 09/07/2021, 10/22/2018 Diabetes Screening 08/15/2026 08/15/2023, 0 08/08/2023, 07/25/2023, Additional history exists Lipid Panel 11/25/2027 11/24/2022, [...] this encounter Medical Devices Implanted Type Area Waste Chopper Device Identifier Shelf Expiration Date Model / Serial / Lot Port Implant W/8f Poly Cath - [id number] Implanted:Qty : 1 on 12/01/2022 by Brad Cerda DO at OR [facility] Right: Chest CR BARD : PERIPHERAL VASCULAR [id number] 02/24/2024 [id number] / / [id number] System Urolift - [id number] Implanted:Qty : 6 on 05/31/2023 by Adolfo Key MD at OR [facility] [employer] 09/01/2023 [id number] / / [id number] Description:prostate documented as of this encounter Visit Diagnoses Diagnosis Adenocarcinoma of pancreas (HCC) Malignant neoplasm of pancreas, part unspecified Metastasis to liver (HCC) Secondary malignant neoplasm of liver documented in this encounter Advance Directives Documents on File Type Date Recorded Patient Director Erp Expl anation POLST 07/13/2023 4:08 PM POLST [...] Discussed due to patient's condition Care Teams Epidemiologist Relationship Specialty Start Date End Date Ray Royal MD [address] [place] [address] [place] [phone] PCP - General Family Medicine 10/22/18 documented as of this encounter
--- OUTSIDE RECORDS SUMMARY | 2023-09-20 05:45 | External Medical Summary | Summary of Care ---
Author Name Unknown Organization [facility] Address [address] [place] [address] Phone [phone] Care Team Providers Care Dump Attendant Name Role Phone Ray Royla MD Primary Care Provider + [phone] Reason for Visit * Reason Comments Chemotherapy C14/D1 - FOLFIRI * Evaluate & Treat - Unlimited Visits (Within 30 days (routine)) - Authorized Specialty Diagnoses / Procedures Referred By Mike velázquez Referred To Contact Hematology Oncology Diagnoses Gallbladder cancer (HCC) Procedures Eval/Treat Anabell Driver PA-C [address] [place] [address] Referral ID Status Reason Start Date Expiration Date Visits Requested Visits Authorized [id number] Authorized Specialty Services Required 12/01/2022 12/06/[phone] Encounter Details Date Type Department Care Team (Latest Contact Info) Description 07/05/2023 11:30 AM EST Hem/Onc Treatment Hematology/Oncolog y Treatment, [address] [address] Neisha, Chair [address] [address] Adenocarcinoma of pancreas (HCC)*; Metastasis to liver [...] mRNA, LNP-s, No Pre serve, 2-Dose Series ([employer]) 02/23/2021,02/02/2021 HEP A - Hepatitis A (Adult > 18 yrs) 09/21/2020, 02/10/2020 Hepatitis B, 20+ yrs 09/21/2020,03/23/2020,02/09 Pneumococcal Conjugate Vacci ne, 20-valent (Rthiwic33) 10/26/2022(Deferred: Patient Refused) Pneumococcal Polysaccharide PPV23 (Pneumovax) [...] his ribs, for which he went to [place] ER twice since he was here last, in the last month. CT scan was [place] at [place] and did not show anything at thesite. Per Dr. Torrez, patient has PET scan to be done on Friday 07/07. Dr. Torrez would prefer patientto be disconnected from his 5FU pump at 10 am regardless if it is completed or not, then patient can drive to [place] for his PET scan for 1145. Patient communicated understanding regarding this plan. Patient is ordered Percocet (10 oxycodone/325 Tylenol) Q6 PRN, which was recently added/increased/adjusted just 1 week ago by palliative SECTION FOREST FIRE WARDEN Rachel Rucker. Patient says he does not [...] 12:30 PM EDT Laboratory Laboratory Tisha Driver [place] [address] [place] [phone] Neisha, Lab [facility] 200 [facility] [place] [address] 09/06/2023 1:15 PM EDT Office Visit Hematology/Oncology [facility] 200 [place] [phone] Teto Torrez MD 200 [facility] [place] [address] 09/06/2023 1:45 PM EDT Hem/Onc Treatment Hematology/Oncology Treatment, [place] 200 [place] [address] Neisha, Chair 1 Hem Onc [address] [place] [address] 09/06/2023 3:00 PM EDT Office Visit Palliative Medicine [facility] 200 [place] [address] Shante Prado MD 400 [facility] [place] [address] 11/15/2023 11:30 AM EDT Office Visit Urology, [facility] 132 [facility] [place] [address] Adolfo Key MD 27 [facility] [address] [place] [phone] Scheduled Procedures Name Priority Associated Diagnoses Date/Ti [...] this encounter Medical Devices Implanted Type Area Resident Care Manager Rn Device Identifier Shelf Expiration Date Model / Serial / Lot Port Implant W/8f Poly Cath - [id number] Implanted:Qty : 1 on 12/01/2022 by Brad Cerda DO at OR [facility] Right: Chest CR BARD : PERIPHERAL VASCULAR [id number] 02/24/2024 [id number] / / [id number] System Urolift - [id number] Implanted:Qty : 6 on 05/31/2023 by Adolfo Key MD at OR [facility] [employer] 09/01/2023 [id number] / / [id number] Description:prostate documented as of this encounter Visit [...] Documents on File Type Date Recorded Patient Vending Route Servicer Expl anation POLST 07/13/2023 4:08 PM POLST [...] Discussed due to patient's condition Care Teams Dump Attendant Relationship Specialty Start Date End Date Ray Royal MD [address] [place] [address] [place] [phone] PCP - General Family Medicine 10/22/18 documented as of this encounter
--- OUTSIDE RECORDS SUMMARY | 2023-09-20 05:45 | External Medical Summary | Summary of Care ---
Author Name Unknown Organization [facility] Address [address] [place] [address] Phone [phone] Care Team Providers Care Sound Ranging Crewmember Name Role Phone Ray Royal MD Primary Care Provider + [phone] Reason for Visit * Reason Comments Outpatient Testing Encounter Details Date Type Department Care Team (Late st Contact Info) Description 08/22/2023 1:00 PM EST Laboratory Laboratory [facility] [address] [place] [phone] [facility] [address] [place] [address] Adenocarcinoma of pancreas (HCC); Metastasis to liver (HCC); Sweating increase Allergies No known active allergiesdocumented as of [...] mRNA, LNP-s, No Pre serve, 2-Dose Series ([employer]) 02/23/2021,02/02/2021 HEP A - Hepatitis A (Adult > 18 yrs) 09/21/2020, 02/10/2020 Hepatitis B, 20+ yrs 09/21/2020,03/23/2020,02/09 Pneumococcal Conjugate Vacci ne, 20-valent ([id number]) 10/26/2022(Deferred: Patient Refused) Pneumococcal Polysaccharide PPV23 (Pneumovax) [...] Description 09/06/2023 12:30 PM EDT Laboratory Laboratory [address] [place] [phone] Neisha Lab [place] [address] [address] [place] [address] 09/06/2023 1:15 PM EDT Office Visit Hematology/Oncology [facility] [address] [place] [phone] Teto Torrez MD [address] [place] [address] [place] [address] 09/06/2023 1:45 PM EDT Hem/Onc Treatment Hematology/Oncology [address] [phone] Neisha, Chair 1 Hem Onc [place] [address] T[address] [place] [address] 09/06/2023 3:00 PM EDT Office Visit Palliative Medicine [facility] [address] [phone] Shante Prado MD [address] [place] [address] [place] [address] 11/15/2023 11:30 AM EDT Office Visit Urology, [facility] [address] [place] [address] Adolfo Key MD 27 [facility] [address] [place] [address] Pending Results Name Type Priority Associated Diagnoses Date /Time TESTOSTERONE: TOTAL, FREE AND BIOAVAILABLE Lab Routine Adenocarcinoma of pancreas (HCC) Metastasis to liver (HCC) Sweating increase 08/22/2023 10:40 AM EST Scheduled Procedures Name [...] this encounter Medical Devices Implanted Type Area Outsewer Device Identifier Shelf Expiration Date Model / Serial / Lot Port Implant W/8f Poly Cath - [id number] Implanted:Qty : 1 on 12/01/2022 by Brad Cerda DO at OR [facility] Right: Chest CR BARD : PERIPHERAL VASCULAR [id number] 02/24/2024 [id number] / / [id number] System Urolift - [id number] Implanted:Qty : 6 on 05/31/2023 by Adolfo Key MD at OR [facility] [employer] 09/01/2023 [id number] / / [id number] Description:prostate documented as of this encounter Visit Diagnoses Diagnosis Adenocarcinoma of pancreas (HCC) Malignant neoplasm of pancreas, part unspecified Metastasis to liver (HCC) Secondary malignant neoplasm of liver Sweating increase Generalized hyperhidrosis documented in this encounter Advance Directives Documents on File Type Date Recorded Patient Project Landscape Architect Expl anation POLST 07/13/2023 4:08 PM POLST [...] Discussed due to patient's condition Care Teams Sound Ranging Crewmember Relationship Specialty Start Date End Date Ray Royal MD [address] [place] [address] [place] [phone] PCP - General Family Medicine 10/22/18 documented as of this encounter
--- OUTSIDE RECORDS SUMMARY | 2023-09-20 05:45 | External Medical Summary | Summary of Care ---
Author Name Unknown Organization [facility] Address [address] [place] [address] Phone [phone] Care Team Providers Care Linderman Operator Name Role Phone Ray Royal MD Primary Care Provider + [phone] Reason for Visit * Reason Comments Chemotherapy C14/D1 - FOLFIRI * Evaluate & Treat - Unlimited Visits (Within 30 days (routine)) - Authorized Specialty Diagnoses / Procedures Referred By Mike velázquez Referred To Contact Hematology Oncology Diagnoses Gallbladder cancer (HCC) Procedures Eval/Treat Anabell Driver PA-C [address] [place] [address] Referral ID Status Reason Start Date Expiration Date Visits Requested Visits Authorized [id number] Authorized Specialty Services Required 12/01/2022 12/06/[phone] Encounter Details Date Type Department Care Team (Latest Contact Info) Description 07/05/2023 11:30 AM EST Hem/Onc Treatment Hematology/Oncolog y Treatment, [address] [phone] Neisha, Chair [address] [address] Adenocarcinoma of pancreas (HCC)*; Metastasis to liver [...] mRNA, LNP-s, No Pre serve, 2-Dose Series ([employer]) 02/23/2021,02/02/2021 HEP A - Hepatitis A (Adult > 18 yrs) 09/21/2020, 02/10/2020 Hepatitis B, 20+ yrs 09/21/2020,03/23/2020,02/09 Pneumococcal Conjugate Vacci ne, 20-valent (Julqgvl14) 10/26/2022(Deferred: Patient Refused) Pneumococcal Polysaccharide PPV23 (Pneumovax) [...] his ribs, for which he went to [place] ER twice since he was here last, in the last month. CT scan was [place] at [place] and did not show anything at thesite. Per Dr. Torrez, patient has PET scan to be done on Friday 07/07. Dr. Torrez would prefer patientto be disconnected from his 5FU pump at 10 am regardless if it is completed or not, then patient can drive to [place] for his PET scan for 1145. Patient communicated understanding regarding this plan. Patient is ordered Percocet (10 oxycodone/325 Tylenol) Q6 PRN, which was recently added/increased/adjusted just 1 week ago by palliative CERTIFIED TECHNICIAN SPECIALIST Rachel Rucker. Patient says he does not [...] 12:30 PM EDT Laboratory Laboratory Tisha Driver [place] [address] [place] [phone] Neisha, Lab [facility] 200 [facility] [place] [address] 09/06/2023 1:15 PM EDT Office Visit Hematology/Oncology [facility] 200 [place] [phone] Teto Torrez MD 200 [facility] [place] [address] 09/06/2023 1:45 PM EDT Hem/Onc Treatment Hematology/Oncology Treatment, [place] 200 [place] [address] Neisha, Chair 1 Hem Onc [address] [place] [address] 09/06/2023 3:00 PM EDT Office Visit Palliative Medicine [facility] 200 [place] [address] Shante Prado MD 400 [facility] [place] [address] 11/15/2023 11:30 AM EDT Office Visit Urology, [facility] 132 [facility] [place] [address] Adolfo Key MD 27 [facility] [address] [place] [phone] Scheduled Procedures Name Priority Associated Diagnoses Date/Ti [...] this encounter Medical Devices Implanted Type Area Passenger Solicitor Device Identifier Shelf Expiration Date Model / Serial / Lot Port Implant W/8f Poly Cath - [id number] Implanted:Qty : 1 on 12/01/2022 [facility] Right: Chest CR BARD : PERIPHERAL VASCULAR [id number] 02/24/2024 [id number] / / [id number] System Urolift - [id number] Implanted:Qty : 6 on 05/31/2023 by Adolfo Key [facility] [employer] 09/01/2023 [id number] / / [id number] Description:prostate documented as of this encounter Visit [...] Documents on File Type Date Recorded Patient Mechanic And Welder Expl anation POLST 07/13/2023 4:08 PM POLST [...] Discussed due to patient's condition Care Teams Linderman Operator Relationship Specialty Start Date End Date Ray Royal MD [address] [place] [address] [place] [phone] PCP - General Family Medicine 10/22/18 documented as of this encounter
--- OUTSIDE RECORDS SUMMARY | 2023-09-20 05:45 | External Medical Summary | Summary of Care ---
Author Name Unknown Organization [facility] Address [address] [place] [address] Phone [phone] Care Team Providers Care Fitness Consultant Name Role Phone Ray Royal MD Primary Care Provider + [phone] Reason for Visit * Reason Comments Chemotherapy Gemzar. * Evaluate & Treat - Unlimited Visits (Within 30 days (routine)) - Authorized Specialty Diagnoses / Procedures Referred By Mike velázquez Referred To Contact Hematology Oncology Diagnoses Gallbladder cancer (HCC) Procedures Eval/Treat Anabell Driver PA-C [address] [place] [address] Referral ID Status Reason Start Date Expiration Date Visits Requested Visits Authorized [id number] Authorized Specialty Services Required 12/01/2022 12/06/[phone] Encounter Details Date Type Department Care Team (Latest Contact Info) Description 08/22/2023 10:00 AM EST Hem/Onc Treatment Hematology/Oncolog y Treatment, [address] [address] Neisha, Chair [address] Hem On[address] [address] Adenocarcinoma of pancreas (HCC)*; Encounter for antineoplastic [...] mRNA, LNP-s, No Pre serve, 2-Dose Series ([place]) 02/23/2021,02/02/2021 HEP A - Hepatitis A (Adult > 18 yrs) 09/21/2020, 02/10/2020 Hepatitis B, 20+ yrs 09/21/2020,03/23/2020,02/09 Pneumococcal Conjugate Vacci ne, 20-valent (Rbjqxfp85) 10/26/2022(Deferred: Patient Refused) Pneumococcal Polysaccharide PPV23 (Pneumovax) [...] in this encounter Nursing Notes * Juju Hall, RN - 08/22/2023 2:37 PM EST Goals: [...] PM EST Chair 1. Patient arrived for greenwoodzar. Patient states does not feel well overall, [...] Description 09/06/2023 12:30 PM EDT Laboratory Laboratory [address] [place] [phone] [facility] Lab [address] [place] [address] 09/06/2023 1:15 PM EDT Office Visit Hematology/Oncology [address] [place] [phone] Teto Torrez MD [address] [place] [address] [place] [address] 09/06/2023 1:45 PM EDT Hem/Onc Treatment Hematology/Oncology Treatment, [place] 200 [place] [phone] Neisha, Chair 1 Hem Onc [address] [place] [address] 09/06/2023 3:00 PM EDT Office Visit Palliative Medicine [address] [place] [phone] Shante Prado MD [address] [place] [address] [place] [address] 11/15/2023 11:30 AM EDT Office Visit Urology, [facility] 132 [facility] [place] [address] Adolfo Key MD [address] [place] [address] [place] [address] Scheduled Procedures Name Priority [...] this encounter Medical Devices Implanted Type Area Road Tester Device Identifier Shelf Expiration Date Model / Serial / Lot Port Implant W/8f Poly Cath - [id number] Implanted:Qty : 1 on 12/01/2022 by Brad Cerda DO at OR [facility] Right: Chest CR BARD : PERIPHERAL VASCULAR [id number] 02/24/2024 [id number] / / [id number] System Urolift - [id number] Implanted:Qty : 6 on 05/31/2023 by Adolfo Key MD at OR [facility] [employer] 09/01/2023 [id number] / / [id number] Description:prostate documented as of this encounter Visit [...] ONCE PRN Other, Hypersensitivity Reaction, Starting on Mon08/22/23 at 1149, Until Mon08/23/23 at 1148, For 24 hours EPINEPHrine 1 MG/ML inj 0.3 mg 0.3 mg, Intramuscular, ONCE PRN Other, Hypersensitivity Reaction or Anaphylaxis, Starting on Mon08/22/23 at 1149, Until Mon08/23/23 at 1148, For 24 hours hEParin 100 UNIT/ML Lock Flush inj 500 Units 500 Units (5 mL), IV Lock, PRN Other, IV Flush, Starting on Mon08/22/23 at 1149, Until Mon08/23/23 at 1148, For 24 hours, Do not flush if lock, PICC, or central line not in place; IV infusing or unable to flush. Given 08/22/2023 12:53 PM EST 500 Units Hydrocortisone Sod Suc (PF) (Solu-Cortef) inj 100 mg 100 mg, IV Push, ONCE PRN Other, Hypersensitivity Reaction, Starting on Mon08/22/23 at 1149, Until Mon08/23/23 at 1148, For 24 hours LORAzepam (Ativan) tab 0.5 mg 0.5 mg, Oral, ONCE PRN Anxiety, Nausea, Starting on Mon08/22/23 at 1300, Until Discontinued NSS infusion Intravenous, at 50 mL/hr, PRN, Starting on Mon08/22/23 at 1300, Until Discontinued, Maintenance line Start Infusion 08/22/2023 12:09 PM EST 50 mL/hr oxygen GAS Inhalation, OXYGEN, First dose on Mon08/22/23 at 1600, Until Discontinued, Device/Managed by: Low [...] Flush, Starting on Mon08/22/23 at 1149, Until Mon08/23/23 at 1148, For 24 hours, Do not flush if lock, PICC, or central line not in place; IV infusing or unable to flush. Given 08/22/2023 12:53 PM EST 10 mL Inactive Administered Medications - up [...] 12:18 PM EST 2,600 mg 500 mL/hr ondansetron (Zofran) tab 8 mg 8 mg, Oral, ONCE, On Mon08/22/23 at 1300, For 1 dose, Give 30 minutes prior to chemotherapy. Given 08/22/2023 12:09 PM EST 8 mg documented in this encounter Advance Directives Documents on File Type Date Recorded Patient Healthcare Representative Expl anation POLST 07/13/2023 4:08 PM [...] Discussed due to patient's condition Care Teams Fitness Consultant Relationship Specialty Start Date End Date Ray Royal MD [address] [place] [address] [place] [phone] PCP - General Family Medicine 10/22/18 documented as of this encounter
--- OUTSIDE RECORDS SUMMARY | 2023-09-20 05:45 | External Medical Summary | Summary of Care ---
Author Name Unknown Organization [facility] Address [address] [place] [address] Phone [phone] Care Team Providers Care Spa Supervisor Name Role Phone Ray Royal MD Primary Care Provider + [phone] Reason for Visit * Reason Comments Chemotherapy C14/D1 - FOLFIRI * Evaluate & Treat - Unlimited Visits (Within 30 days (routine)) - Authorized Specialty Diagnoses / Procedures Referred By Mike velázquez Referred To Contact Hematology Oncology Diagnoses Gallbladder cancer (HCC) Procedures Eval/Treat Anabell Driver PA-C [address] [place] [address] Referral ID Status Reason Start Date Expiration Date Visits Requested Visits Authorized [id number] Authorized Specialty Services Required 12/01/2022 12/06/[phone] Encounter Details Date Type Department Care Team (Latest Contact Info) Description 07/05/2023 11:30 AM EST Hem/Onc Treatment Hematology/Oncolog y Treatment, [address] [address] Neisha, Chair 2 Hem Onc [address] [address] Adenocarcinoma of pancreas (HCC)*; Metastasis to liver [...] mRNA, LNP-s, No Pre serve, 2-Dose Series (Parkzzz) 02/23/2021,02/02/2021 HEP A - Hepatitis A (Adult > 18 yrs) 09/21/2020, 02/10/2020 Hepatitis B, 20+ yrs 09/21/2020,03/23/2020,02/09 Pneumococcal Conjugate Vacci ne, 20-valent (Lyignia50) 10/26/2022(Deferred: Patient Refused) Pneumococcal Polysaccharide PPV23 (Pneumovax) [...] his ribs, for which he went to [place] ER twice since he was here last, in the last month. CT scan [place] and did not show anything at thesite. Per Dr. Torrez, patient has PET scan to be done on Friday 07/07. Dr. Torrez would prefer patientto be disconnected from his 5FU pump at 10 am regardless if it is completed or not, then patient can drive to [place] for his PET scan for 1145. Patient communicated understanding regarding this plan. Patient is ordered Percocet (10 oxycodone/325 Tylenol) Q6 PRN, which was recently added/increased/adjusted just 1 week ago by palliative CAGE SHIFT MANAGER Rachel Rucker. Patient says he does not [...] Team (Late st Contact Info) Description 08/22/2023 10:00 AM EST Hem/Onc Treatment Hematology/Oncology Treatment, [place] [address] [facility] [place] [phone] Neisha, Chair 2 Hem Onc [facility] 200 [facility] [place], [place] [address] 08/30/2023 7:40 AM EST Laboratory Laboratory [facility] [address] [place], [place] [phone] Neisha, Lab [facility] 200 [facility] [place], [place] [address] 08/30/2023 8:45 AM EST Office Visit Hematology/Oncology [facility] 200 [facility] [place], [place] [phone] Teto Torrez MD 200 [facility], [place] [address] 08/30/2023 9:15 AM EST [facility] 200 [facility], [place] [phone] Neisha, Chair 4 Hem Onc [address] [place], [place] [address] 09/06/2023 3:00 PM EDT Office Visit Palliative Medicine [facility] 200 [facility], [place] [phone] Shante Prado MD [address] [place] [address] [place] [address] 11/15/2023 11:30 AM EDT Office Visit Urology, [facility] 132 [facility] [place] [address] Adolfo Key MD [address] [address] [place] [address] Scheduled Procedures Name Priority [...] encounter Medical Devices Implanted Type Area Manager Rental Device Identifier Shelf Expiration Date Model / Serial / Lot Port Implant W/8f Poly Cath - [id number] Implanted:Qty : 1 on 12/01/2022 by Brad Cerda, DO at OR [facility] Right: Chest CR BARD : PERIPHERAL VASCULAR [id number] 02/24/2024 [id number] / / [id number] System Urolift - [id number] Implanted:Qty : 6 on 05/31/2023 by Adolfo Key MD at OR [facility] [employer] 09/01/2023 [id number] / / [id number] Description:prostate documented as of this encounter Visit [...] at 1215, For 1 dose, Restricted per [facility] antiemetic guidelines Given 07/05/2023 11:54 AM EST 0.25 mg documented in this encounter Advance Directives Documents on File Type Date Recorded Patient Livestock Sales Representative Expl anation POLST 07/13/2023 4:08 PM [...] Discussed due to patient's condition Care Teams Spa Supervisor Relationship Specialty Start Date End Date Ray Royal MD [address] [place] [address] [place] [address] PCP - General Family Medicine 10/22/18 documented as of this encounter
--- OUTSIDE RECORDS SUMMARY | 2023-09-20 05:45 | External Medical Summary | Summary of Care ---
Author Name Unknown Organization [facility] Address [address] [place] [address] Phone [phone] Care Team Providers Care Batch Maker Name Role Phone Ray Royal MD Primary Care Provider + [phone] Reason for Visit * Reason Comments Chemotherapy C14/D1 - FOLFIRI * Evaluate & Treat - Unlimited Visits (Within 30 days (routine)) - Authorized Specialty Diagnoses / Procedures Referred By Mike velázquez Referred To Contact Hematology Oncology Diagnoses Gallbladder cancer (HCC) Procedures Eval/Treat Anabell Driver PA-C [address] [place] [address] [address] Referral ID Status Reason Start Date Expiration Date Visits Requested Visits Authorized [id number] Authorized Specialty Services Required 12/01/2022 12/06/[phone] Encounter Details Date Type Department Care Team (Latest Contact Info) Description 07/05/2023 11:30 AM EST Hem/Onc Treatment Hematology/Oncolog y Treatment, [address] [phone] Neisha, Chair 2 Hem Onc [address] [address] Adenocarcinoma of pancreas (HCC)*; Metastasis to liver [...] mRNA, LNP-s, No Pre serve, 2-Dose Series ([employer]) 02/23/2021,02/02/2021 HEP A - Hepatitis A (Adult > 18 yrs) 09/21/2020, 02/10/2020 Hepatitis B, 20+ yrs 09/21/2020,03/23/2020,02/09 Pneumococcal Conjugate Vacci ne, 20-valent ([id number]) 10/26/2022(Deferred: Patient Refused) Pneumococcal Polysaccharide PPV23 (Pneumovax) [...] his ribs, for which he went to [place] ER twice since he was here last, in the last month. CT scan was [place] at [place] and did not show anything at thesite. Per Dr. Torrez, patient has PET scan to be done on Friday 07/07. Dr. Torrez would prefer patientto be disconnected from his 5FU pump at 10 am regardless if it is completed or not, then patient can drive to [place] for his PET scan for 1145. Patient communicated understanding regarding this plan. Patient is ordered Percocet (10 oxycodone/325 Tylenol) Q6 PRN, which was recently added/increased/adjusted just 1 week ago by palliative ACCOUNTING OFFICE MANAGER Rachel Rucker. Patient says he does [...] 12:30 PM EDT Laboratory Laboratory Tisha Driver [place] [address] [place] [phone] Neisha, Lab [facility] 200 [facility] [place] [address] 09/06/2023 1:15 PM EDT Office Visit Hematology/Oncology [facility] 200 [facility] [place] [phone] Teto Torrez MD 200 [facility] [place] [address] 09/06/2023 1:45 PM EDT Hem/Onc Treatment Hematology/Oncology Treatment, [place] 200 [place] [address] Neisha, Chair 1 Hem Onc [address] [place] [address] 09/06/2023 3:00 PM EDT Office Visit Palliative Medicine [facility] 200 [place] [address] Shante Prado MD [address] [facility] [place] [address] 11/15/2023 11:30 AM EDT Office Visit Urology, [facility] 132 [facility] [place] [address] Adolfo Key MD 27 [facility] [address] [place] [id number] Scheduled Procedures Name Priority Associated Diagnoses Date/Ti [...] this encounter Medical Devices Implanted Type Area Client Services Director Device Identifier Shelf Expiration Date Model / Serial / Lot Port Implant W/8f Poly Cath - [id number] Implanted:Qty : 1 on 12/01/2022 by Brad Cerda DO at OR [facility] Right: Chest CR BARD : PERIPHERAL VASCULAR [id number] 02/24/2024 [id number] / / [id number] System Urolift - [id number] Implanted:Qty : 6 on 05/31/2023 by Adolfo Key MD at OR [facility] [employer] 09/01/2023 GE383-5 / / [id number] Description:prostate documented as of this encounter Visit [...] Documents on File Type Date Recorded Patient Mergers And Acquisitions Attorney Expl anation POLST 07/13/2023 4:08 PM POLST [...] Discussed due to patient's condition Care Teams Batch Maker Relationship Specialty Start Date End Date Ray Royal MD [address] [place] [address] [place] [address] PCP - General Family Medicine 10/22/18 documented as of this encounter
--- OUTSIDE RECORDS SUMMARY | 2023-09-20 05:45 | External Medical Summary | Summary of Care ---
Author Name Unknown Organization [facility] Address [address] [place] [address] Phone [phone] Care Team Providers Care Slasher Name Role Phone Ray Royal MD Primary Care Provider + [phone] Reason for Visit * Reason Comments Chemotherapy C14/D1 - FOLFIRI * Evaluate & Treat - Unlimited Visits (Within 30 days (routine)) - Authorized Specialty Diagnoses / Procedures Referred By Mike velázquez Referred To Contact Hematology Oncology Diagnoses Gallbladder cancer (HCC) Procedures Eval/Treat Anabell Driver PA-C [address] [place] [address] [address] Referral ID Status Reason Start Date Expiration Date Visits Requested Visits Authorized [id number] Authorized Specialty Services Required 12/01/2022 12/06/[phone] Encounter Details Date Type Department Care Team (Latest Contact Info) Description 07/05/2023 11:30 AM EST Hem/Onc Treatment Hematology/Oncolog y Treatment, [address] [phone] Neisha, Chair 2 Hem Onc [address] [address] Adenocarcinoma of pancreas (HCC)*; Metastasis to liver [...] mRNA, LNP-s, No Pre serve, 2-Dose Series (Dibsie) 02/23/2021,02/02/2021 HEP A - Hepatitis A (Adult > 18 yrs) 09/21/2020, 02/10/2020 Hepatitis B, 20+ yrs 09/21/2020,03/23/2020,02/09 Pneumococcal Conjugate Vacci ne, 20-valent ([id number]) 10/26/2022(Deferred: Patient Refused) Pneumococcal Polysaccharide PPV23 (Pneumovax) [...] his ribs, for which he went to [place] ER twice since he was here last, in the last month. CT scan was [place] at [place] and did not show anything at thesite. Per Dr. Torrez, patient has PET scan to be done on Friday 07/07. Dr. Torrez would prefer patientto be disconnected from his 5FU pump at 10 am regardless if it is completed or not, then patient can drive to [place] for his PET scan for 1145. Patient communicated understanding regarding this plan. Patient is ordered Percocet (10 oxycodone/325 Tylenol) Q6 PRN, which was recently added/increased/adjusted just 1 week ago by palliative MATERIALS MANAGEMENT CLERK Rachel Rucker. Patient says he does not [...] Description 09/06/2023 12:30 PM EDT Laboratory Laboratory Tsiha Driver [place] [address] [place] [phone] Neisha, Lab [facility] 200 [facility] [place] [address] 09/06/2023 1:15 PM EDT Office Visit Hematology/Oncology [facility] 200 [place] [phone] Teto Torrez MD 200 [facility] [place] [address] 09/06/2023 1:45 PM EDT Hem/Onc Treatment Hematology/Oncology Treatment, [place] 200 [place] [address] Neisha, Chair 1 Hem Onc [address] [place] [address] 09/06/2023 3:00 PM EDT Office Visit Palliative Medicine [facility] 200 [place] [address] Shante Prado MD 400 [facility] [place] [address] 11/15/2023 11:30 AM EDT Office Visit Urology, [facility] 132 [facility] [place] [address] Adolfo Key MD 27 [facility] [address] [place] [id number] Scheduled Procedures Name Priority Associated Diagnoses Date/Ti [...] this encounter Medical Devices Implanted Type Area Ski Instructor Device Identifier Shelf Expiration Date Model / Serial / Lot Port Implant W/8f Poly Cath - [id number] Implanted:Qty : 1 on 12/01/2022 by Brad Cerda DO at OR [facility] Right: Chest CR BARD : PERIPHERAL VASCULAR [id number] 02/24/2024 [id number] / / [id number] System Urolift - [id number] Implanted:Qty : 6 on 05/31/2023 by Adolfo Key MD at OR [facility] [employer] 09/01/2023 [id number] / / [id number] Description:prostate documented as of this encounter Visit [...] Documents on File Type Date Recorded Patient Sql Report Developer Expl anation POLST 07/13/2023 4:08 PM POLST [...] Discussed due to patient's condition Care Teams Slasher Relationship Specialty Start Date End Date Ray Royal MD [address] [place] [address] [place] [address] PCP - General Family Medicine 10/22/18 documented as of this encounter
--- OUTSIDE RECORDS SUMMARY | 2023-09-20 05:45 | External Medical Summary | Summary of Care ---
Author Name Unknown Organization [facility] Address [address] [place] [address] Phone [phone] Care Team Providers Care Docketing Specialist Name Role Phone Ray Royal MD Primary Care Provider + [phone] Reason for Visit * Reason Comments Chemotherapy C14/D1 - FOLFIRI * Evaluate & Treat - Unlimited Visits (Within 30 days (routine)) - Authorized Specialty Diagnoses / Procedures Referred By Mike velázquez Referred To Contact Hematology Oncology Diagnoses Gallbladder cancer (HCC) Procedures Eval/Treat Anabell Driver PA-C [address] [place] [address] [address] Referral ID Status Reason Start Date Expiration Date Visits Requested Visits Authorized [id number] Authorized Specialty Services Required 12/01/2022 12/06/[phone] Encounter Details Date Type Department Care Team (Latest Contact Info) Description 07/05/2023 11:30 AM EST Hem/Onc Treatment Hematology/Oncolog y Treatment, [address] [address] Neisha, Chair 2 Hem Onc [address] [address] Adenocarcinoma of pancreas (HCC)*; Metastasis to liver [...] mRNA, LNP-s, No Pre serve, 2-Dose Series ([employer]) 02/23/2021,02/02/2021 HEP A - Hepatitis A (Adult > 18 yrs) 09/21/2020, 02/10/2020 Hepatitis B, 20+ yrs 09/21/2020,03/23/2020,02/09 Pneumococcal Conjugate Vacci ne, 20-valent ([id number]) 10/26/2022(Deferred: Patient Refused) Pneumococcal Polysaccharide PPV23 (Pneumovax) [...] or not, then patient can drive to [place] for his PET scan for 1145. Patient communicated understanding regarding this plan. Patient is ordered Percocet (10 oxycodone/325 Tylenol) Q6 PRN, which was recently added/increased/adjusted just 1 week ago by palliative SPA DIRECTOR Rachel Rucker. Patient says he does not [...] 12:30 PM EDT Laboratory Laboratory Tisha Driver [place] [address] [place] [phone] Neisha, Lab [facility] 200 [facility] [place] [address] 09/06/2023 1:15 PM EDT Office Visit Hematology/Oncology [facility] 200 [place] [phone] Teto Torrez MD 200 [facility] [place] [address] 09/06/2023 1:45 PM EDT Hem/Onc Treatment Hematology/Oncology Treatment, [place] 200 [place] [address] Neisha, Chair 1 Hem Onc [address] [place] [address] 09/06/2023 3:00 PM EDT Office Visit Palliative Medicine [facility] 200 [place] [address] Shante Prado MD 400 [facility] [place] [address] 11/15/2023 11:30 AM EDT Office Visit Urology, [facility] 132 [facility] [place] [address] Adolfo Key MD 27 [facility] [address] [place] [phone] Scheduled Procedures Name Priority Associated Diagnoses Date/Ti [...] this encounter Medical Devices Implanted Type Area Composite Layup Worker Device Identifier Shelf Expiration Date Model / Serial / Lot Port Implant W/8f Poly Cath - [id number] Implanted:Qty : 1 on 12/01/2022 by Brad Cerda DO at OR [facility] Right: Chest CR BARD : PERIPHERAL VASCULAR [id number] 02/24/2024 [id number] / / [id number] System Urolift - [id number] Implanted:Qty : 6 on 05/31/2023 by Adolfo Key MD at OR [facility] [employer] 09/01/2023 [id number] / / [id number] Description:prostate documented as of this encounter Visit [...] Documents on File Type Date Recorded Patient Onion Farmer Expl anation POLST 07/13/2023 4:08 PM POLST [...] Discussed due to patient's condition Care Teams Docketing Specialist Relationship Specialty Start Date End Date Ray Royal MD [address] [place] [address] [place] [phone] PCP - General Family Medicine 10/22/18 documented as of this encounter
--- OUTSIDE RECORDS SUMMARY | 2023-09-20 05:46 | External Medical Summary | Summary of Care ---
Author Name Unknown Organization [facility] Address [address] [place] [address] Phone [phone] Care Team Providers Care Vp Business Development Name Role Phone Ray Royal MD Primary Care Provider + [phone] Reason for Visit * Reason Comments Chemotherapy C14/D1 - FOLFIRI * Evaluate & Treat - Unlimited Visits (Within 30 days (routine)) - Authorized Specialty Diagnoses / Procedures Referred By Mike velázquez Referred To Contact Hematology Oncology Diagnoses Gallbladder cancer (HCC) Procedures Eval/Treat Anabell Driver PA-C [address] [place] [address] [address] Referral ID Status Reason Start Date Expiration Date Visits Requested Visits Authorized [id number] Authorized Specialty Services Required 12/01/2022 12/06/[phone] Encounter Details Date Type Department Care Team (Latest Contact Info) Description 07/05/2023 11:30 AM EST Hem/Onc Treatment Hematology/Oncolog y Treatment, [address] [address] Neisha, Chair 2 Hem Onc [address] [address] Adenocarcinoma of pancreas (HCC)*; Metastasis to liver [...] mRNA, LNP-s, No Pre serve, 2-Dose Series ([employer]) 02/23/2021,02/02/2021 HEP A - Hepatitis A (Adult > 18 yrs) 09/21/2020, 02/10/2020 Hepatitis B, 20+ yrs 09/21/2020,03/23/2020,02/09 Pneumococcal Conjugate Vacci ne, 20-valent ([id number]) 10/26/2022(Deferred: Patient Refused) Pneumococcal Polysaccharide PPV23 (Pneumovax) [...] his ribs, for which he went to [place] ER twice since he was here last, in the last month. CT scan was [place] at [place] and did not show anything at thesite. Per Dr. Torrez, patient has PET scan to be done on Friday 07/07. Dr. Torrez would prefer patientto be disconnected from his 5FU pump at 10 am regardless if it is completed or not, then patient can drive to [place] for his PET scan for 1145. Patient communicated understanding regarding this plan. Patient is ordered Percocet (10 oxycodone/325 Tylenol) Q6 PRN, which was recently added/increased/adjusted just 1 week ago by palliative FAMILY AND CONSUMER SCIENCES TEACHER Rachel Rucker. Patient says he does not [...] 10:00 AM EST Hem/Onc Treatment Hematology/Oncology Treatment, [place] 200 [place] [phone] Neisha, Chair 2 Hem Onc [facility] 200 [facility] [place], [place] [address] 08/30/2023 7:40 AM EST Laboratory Laboratory [facility] [address] [place], [place] [phone] Neisha, Lab [facility] 200 [facility] [place], [place] [address] 08/30/2023 8:45 AM EST Office Visit Hematology/Oncology [facility] 200 [facility] [place], [place] [phone] Teto Torrez MD 200 [facility], [place] [address] 08/30/2023 9:15 AM EST Hem[facility] 200 [facility], [place] [phone] Neisha, Chair 4 Hem Onc [address] [place], [place] [address] 09/06/2023 3:00 PM EDT Office Visit Palliative Medicine [facility] 200 [facility], [place] [phone] Shante Prado MD [address] [place] [address] [place] [address] 11/15/2023 11:30 AM EDT Office Visit Urology, [facility] 132 [facility] [place] [address] Adolfo Key MD [address] [address] [place] [address] Scheduled Procedures Name Priority [...] this encounter Medical Devices Implanted Type Area Child Psychologist Device Identifier Shelf Expiration Date Model / Serial / Lot Port Implant W/8f Poly Cath - [id number] Implanted:Qty : 1 on 12/01/2022 by Brad Cerda, DO at OR [facility] Right: Chest CR BARD : PERIPHERAL VASCULAR [id number] 02/24/2024 [id number] / / [id number] System Urolift - [id number] Implanted:Qty : 6 on 05/31/2023 by Adolfo Key MD at OR [facility] [employer] 09/01/2023 DO849-3 / / [id number] Description:prostate documented as of this encounter Visit [...] 1215, For 1 dose, Restricted per [facility] antiemetic guidelines Given 07/05/2023 11:54 AM EST 0.25 mg documented in this encounter Advance Directives Documents on File Type Date Recorded Patient Insurance Processor Expl anation POLST 07/13/2023 4:08 PM POLST [...] Discussed due to patient's condition Care Teams Vp Business Development Relationship Specialty Start Date End Date Ray Royal MD [address] [place] [address] [place] [address] PCP - General Family Medicine 10/22/18 documented as of this encounter
--- OUTSIDE RECORDS SUMMARY | 2023-09-20 05:46 | External Medical Summary | Summary of Care ---
Author Name Unknown Organization [facility] Address [address] [place] [address] Phone [phone] Care Team Providers Care Out Of School Hours Care Worker Name Role Phone Ray Royal MD Primary Care Provider + [phone] Reason for Visit * Reason Comments Chemotherapy C14/D1 - FOLFIRI * Evaluate & Treat - Unlimited Visits (Within 30 days (routine)) - Authorized Specialty Diagnoses / Procedures Referred By Mike velázquez Referred To Contact Hematology Oncology Diagnoses Gallbladder cancer (HCC) Procedures Eval/Treat Anabell Driver PA-C [address] [place] [address] Referral ID Status Reason Start Date Expiration Date Visits Requested Visits Authorized [id number] Authorized Specialty Services Required 12/01/2022 12/06/[phone] Encounter Details Date Type Department Care Team (Latest Contact Info) Description 07/05/2023 11:30 AM EST Hem/Onc Treatment Hematology/Oncolog y Treatment, [address] [phone] Neisha, Chair 2 Hem Onc [address] [address] Adenocarcinoma of pancreas (HCC)*; Metastasis to liver [...] mRNA, LNP-s, No Pre serve, 2-Dose Series (Silentsoft) 02/23/2021,02/02/2021 HEP A - Hepatitis A (Adult > 18 yrs) 09/21/2020, 02/10/2020 Hepatitis B, 20+ yrs 09/21/2020,03/23/2020,02/09 Pneumococcal Conjugate Vacci ne, 20-valent ([id number]) 10/26/2022(Deferred: Patient Refused) Pneumococcal Polysaccharide PPV23 (Pneumovax) [...] his ribs, for which [place] went to [place] ER twice since he was here last, in the last month. CT scan [place] and did not show anything at thesite. Per Dr. Torrez, patient has PET scan to be done on Friday 07/07. Dr. Torrez would prefer patientto be disconnected from his 5FU pump at 10 am regardless if it is completed or not, then patient can drive to [place] for his PET scan for 1145. Patient communicated understanding regarding this plan. Patient is ordered Percocet (10 oxycodone/325 Tylenol) Q6 PRN, which was recently added/increased/adjusted just 1 week ago by palliative HEARING EXAMINER Rachel Rucker. Patient says he does not [...] 10:00 AM EST Hem/Onc Treatment Hematology/Oncology Treatment, [place] [address] [facility] [place] [phone] Neisha, Chair 2 Hem Onc [facility] 200 [facility] [place], [place] [address] 08/30/2023 7:40 AM EST Laboratory Laboratory [facility] [address] [place], [place] [phone] Neisha, Lab [facility] 200 [facility] [place], [place] [address] 08/30/2023 8:45 AM EST Office Visit Hematology/Oncology [facility] 200 [facility] [place], [place] [phone] Teto Torrez MD 200 [facility], [place] [address] 08/30/2023 9:15 AM EST Hem[facility] 200 [facility], [place] [phone] Neisha, Chair 4 Hem Onc [address] [place], [place] [address] 09/06/2023 3:00 PM EDT Office Visit Palliative Medicine [facility] 200 [facility], [place] [phone] Shante Prado MD [address] [place] [address] [place] [address] 11/15/2023 11:30 AM EDT Office Visit Urology, [facility] 132 [facility] [place] [address] Adolfo Key MD [address] [address] [place] [address] Scheduled Procedures Name Priority [...] this encounter Medical Devices Implanted Type Area Gas Plumber Device Identifier Shelf Expiration Date Model / Serial / Lot Port Implant W/8f Poly Cath - [id number] Implanted:Qty : 1 on 12/01/2022 by Brad Cerda, DO at OR [facility] Right: Chest CR BARD : PERIPHERAL VASCULAR [id number] 02/24/2024 [id number] / / [id number] System Urolift - [id number] Implanted:Qty : 6 on 05/31/2023 by Adolfo Kye MD at OR [facility] [employer] 09/01/2023 [id number] / / [id number] Description:prostate documented as of this encounter Visit [...] at 1215, For 1 dose, Restricted per [facility] antiemetic guidelines Given 07/05/2023 11:54 AM EST 0.25 mg documented in this encounter Advance Directives Documents on File Type Date Recorded Patient Onyx Chip Terrazzo Worker Expl anation POLST 07/13/2023 4:08 PM POLST [...] Discussed due to patient's condition Care Teams Out Of School Hours Care Worker Relationship Specialty Start Date End Date Ray Royal MD [address] [place] [address] [place] [address] PCP - General Family Medicine 10/22/18 documented as of this encounter
--- OUTSIDE RECORDS SUMMARY | 2023-09-20 05:46 | External Medical Summary | Summary of Care ---
Author Name Unknown Organization [facility] Address [address] [place] [address] Phone [phone] Care Team Providers Care Seafood Team Member Name Role Phone Ray Royal MD Primary Care Provider + [phone] Reason for Visit * Reason Comments Chemotherapy C14/D1 - FOLFIRI * Evaluate & Treat - Unlimited Visits (Within 30 days (routine)) - Authorized Specialty Diagnoses / Procedures Referred By Mike velázquez Referred To Contact Hematology Oncology Diagnoses Gallbladder cancer (HCC) Procedures Eval/Treat Anabell Driver PA-C [address] [place] [address] [address] Referral ID Status Reason Start Date Expiration Date Visits Requested Visits Authorized [id number] Authorized Specialty Services Required 12/01/2022 12/06/[phone] Encounter Details Date Type Department Care Team (Latest Contact Info) Description 07/05/2023 11:30 AM EST Hem/Onc Treatment Hematology/Oncolog y Treatment, [address] [phone] Neisha, Chair 2 Hem Onc [address] [address] Adenocarcinoma of pancreas (HCC)*; Metastasis to liver [...] oxyCODONE HCl 5 MG Oral Tablet (Oxy IR)Indications:Yoryd ocarcinoma of pancreas (HCC),Metastasis to liver (HCC) [...] mRNA, LNP-s, No Pre serve, 2-Dose Series (Hantele) 02/23/2021,02/02/2021 HEP A - Hepatitis A (Adult > 18 yrs) 09/21/2020, 02/10/2020 Hepatitis B, 20+ yrs 09/21/2020,03/23/2020,02/09 Pneumococcal Conjugate Vacci ne, 20-valent ([id number]) 10/26/2022(Deferred: Patient Refused) Pneumococcal Polysaccharide PPV23 (Pneumovax) [...] or not, then patient can drive to [place] for his PET scan for 1145. Patient communicated understanding regarding this plan. Patient is ordered Percocet (10 oxycodone/325 Tylenol) Q6 PRN, which was recently added/increased/adjusted just 1 week ago by palliative USER EXPERIENCE DEVELOPER Rachel Rucker. Patient says he does not [...] 10:00 AM EST Hem/Onc Treatment Hematology/Oncology Treatment, [place] 200 [place] [phone] Neisha, Chair 2 Hem Onc [facility] 200 [facility] [place], [place] [address] 08/30/2023 7:40 AM EST Laboratory Laboratory [facility] [address] [place], [place] [phone] Neisha, Lab [facility] 200 [facility] [place], [place] [address] 08/30/2023 8:45 AM EST Office Visit Hematology/Oncology [facility] 200 [facility] [place], [place] [phone] Teto Torrez MD 200 [facility], [place] [address] 08/30/2023 9:15 AM EST Hem[facility] 200 [facility], [place] [phone] Neisha, Chair 4 Hem Onc [address] [place], [place] [address] 09/06/2023 3:00 PM EDT Office Visit Palliative Medicine [facility] 200 [facility], [place] [phone] Shante Prado MD [address] [place] [address] [place] [address] 11/15/2023 11:30 AM EDT Office Visit Urology, [facility] 132 [facility] [place] [address] Adolfo Key MD [address] [address] [place] [address] Scheduled Procedures Name Priority [...] this encounter Medical Devices Implanted Type Area Hand Coper Device Identifier Shelf Expiration Date Model / Serial / Lot Port Implant W/8f Poly Cath - [id number] Implanted:Qty : 1 on 12/01/2022 by Brad Cerda, DO at OR [facility] Right: Chest CR BARD : PERIPHERAL VASCULAR [id number] 02/24/2024 [id number] / / [id number] System Urolift - [id number] Implanted:Qty : 6 on 05/31/2023 by Adolfo Key MD at OR [facility] [employer] 09/01/2023 [id number] / / [id number] Description:prostate documented as of this encounter Visit [...] at 1215, For 1 dose, Restricted per [facility] antiemetic guidelines Given 07/05/2023 11:54 AM EST 0.25 mg documented in this encounter Advance Directives Documents on File Type Date Recorded Patient Dry Ice Machine Operator Expl anation POLST 07/13/2023 4:08 [...] Discussed due to patient's condition Care Teams Seafood Team Member Relationship Specialty Start Date End Date Ray Royal MD [address] [place] [address] [place] [address] PCP - General Family Medicine 10/22/18 documented as of this encounter
--- OUTSIDE RECORDS SUMMARY | 2023-09-20 05:46 | External Medical Summary | Summary of Care ---
Author Name Unknown Organization [facility] Address [address] [place] [address] Phone [phone] Care Team Providers Care Finger Lift Operator Name Role Phone Ray Royal MD Primary Care Provider + [phone] Reason for Visit * Reason Comments Chemotherapy C14/D1 - FOLFIRI * Evaluate & Treat - Unlimited Visits (Within 30 days (routine)) - Authorized Specialty Diagnoses / Procedures Referred By Mike velázquez Referred To Contact Hematology Oncology Diagnoses Gallbladder cancer (HCC) Procedures Eval/Treat Anabell Driver PA-C [address] [place] [address] [address] Referral ID Status Reason Start Date Expiration Date Visits Requested Visits Authorized [id number] Authorized Specialty Services Required 12/01/2022 12/06/[phone] Encounter Details Date Type Department Care Team (Latest Contact Info) Description 07/05/2023 11:30 AM EST Hem/Onc Treatment Hematology/Oncolog y Treatment, [address] [phone] Neisha, Chair 2 Hem Onc [address] [address] Adenocarcinoma of pancreas (HCC)*; Metastasis to liver [...] mRNA, LNP-s, No Pre serve, 2-Dose Series ([employer]) 02/23/2021,02/02/2021 HEP A - Hepatitis A (Adult > 18 yrs) 09/21/2020, 02/10/2020 Hepatitis B, 20+ yrs 09/21/2020,03/23/2020,02/09 Pneumococcal Conjugate Vacci ne, 20-valent ([id number]) 10/26/2022(Deferred: Patient Refused) Pneumococcal Polysaccharide PPV23 (Pneumovax) [...] his ribs, for which he went to [place] ER twice since he was here last, in the last month. CT scan was [place] at [place] and did not show anything at thesite. Per Dr. Torrez, patient has PET scan to be done on Friday 07/07. Dr. Torrez would prefer patientto be disconnected from his 5FU pump at 10 am regardless if it is completed or not, then patient can drive to [place] for his PET scan for 1145. Patient communicated understanding regarding this plan. Patient is ordered Percocet (10 oxycodone/325 Tylenol) Q6 PRN, which was recently added/increased/adjusted just 1 week ago by palliative FAUCET POLISHER Rachel Rucker. Patient says he does not [...] 10:00 AM EST Hem/Onc Treatment Hematology/Oncology Treatment, [place] 200 [place] [phone] Neisha, Chair 2 Hem Onc [facility] 200 [facility] [place], [place] [address] 08/30/2023 7:40 AM EST Laboratory Laboratory [facility] [address] [place], [place] [phone] Neisha, Lab [facility] 200 [facility] [place], [place] [address] 08/30/2023 8:45 AM EST Office Visit Hematology/Oncology [facility] 200 [facility] [place], [place] [phone] Teto Torrez MD 200 [facility], [place] [address] 08/30/2023 9:15 AM EST Hem[facility]On[facility] 200 [facility], [place] [phone] Neisha, Chair 4 Hem Onc [address] [place], [place] [address] 09/06/2023 3:00 PM EDT Office Visit Palliative Medicine [facility] 200 [facility], [place] [phone] Shante Prado MD [address] [place] [address] [place] [address] 11/15/2023 11:30 AM EDT Office Visit Urology, [facility] 132 [facility] [place] [address] Adolfo Key MD [address] [address] [place] [address] Scheduled Procedures Name Priority [...] this encounter Medical Devices Implanted Type Area Business And Financial Counsel Device Identifier Shelf Expiration Date Model / Serial / Lot Port Implant W/8f Poly Cath - [id number] Implanted:Qty : 1 on 12/01/2022 by Brad Cerda, DO at OR [facility] Right: Chest CR BARD : PERIPHERAL VASCULAR [id number] 02/24/2024 [id number] / / [id number] System Urolift - [id number] Implanted:Qty : 6 on 05/31/2023 by Adolfo Key MD at OR [facility] [employer] 09/01/2023 [id number] / / [id number] Description:prostate documented as of this encounter Visit [...] at 1215, For 1 dose, Restricted per [facility] antiemetic guidelines Given 07/05/2023 11:54 AM EST 0.25 mg documented in this encounter Advance Directives Documents on File Type Date Recorded Patient Market Development Analyst Expl anation POLST 07/13/2023 4:08 PM [...] Discussed due to patient's condition Care Teams Finger Lift Operator Relationship Specialty Start Date End Date Ray Royal MD [address] [place] [address] [place] [address] PCP - General Family Medicine 10/22/18 documented as of this encounter
--- OUTSIDE RECORDS SUMMARY | 2023-09-20 05:46 | External Medical Summary | Summary of Care ---
Author Name Unknown Organization [facility] Address [address] [place] [address] Phone [phone] Care Team Providers Care Business Continuity Manager Name Role Phone Ray Royal MD Primary Care Provider + [phone] Reason for Visit * Reason Comments Chemotherapy C14/D1 - FOLFIRI * Evaluate & Treat - Unlimited Visits (Within 30 days (routine)) - Authorized Specialty Diagnoses / Procedures Referred By Mike velázquez Referred To Contact Hematology Oncology Diagnoses Gallbladder cancer (HCC) Procedures Eval/Treat Anabell Driver PA-C [address] [place] [address] [address] Referral ID Status Reason Start Date Expiration Date Visits Requested Visits Authorized [id number] Authorized Specialty Services Required 12/01/2022 12/06/[phone] Encounter Details Date Type Department Care Team (Latest Contact Info) Description 07/05/2023 11:30 AM EST Hem/Onc Treatment Hematology/Oncolog y Treatment, [address] [phone] Neisha, Chair 2 Hem Onc [address] [address] Adenocarcinoma of pancreas (HCC)*; Metastasis to liver [...] mRNA, LNP-s, No Pre serve, 2-Dose Series (Mutracx) 02/23/2021,02/02/2021 HEP A - Hepatitis A (Adult > 18 yrs) 09/21/2020, 02/10/2020 Hepatitis B, 20+ yrs 09/21/2020,03/23/2020,02/09 Pneumococcal Conjugate Vacci ne, 20-valent ([id number]) 10/26/2022(Deferred: Patient Refused) Pneumococcal Polysaccharide PPV23 (Pneumovax) [...] his ribs, for which he went to [place] ER twice since he was here last, in the last month. CT scan was martinez at [place] and did not show anything at thesite. Per Dr. Torrez, patient has PET scan to be done on Friday 07/07. Dr. Torrez would prefer patientto be disconnected from his 5FU pump at 10 am regardless if it is completed or not, then patient can drive to [place] for his PET scan for 1145. Patient communicated understanding regarding this plan. Patient is ordered Percocet (10 oxycodone/325 Tylenol) Q6 PRN, which was recently added/increased/adjusted just 1 week ago by palliative SNOWBLOWER MECHANIC Rachel Rucker. Patient says he does not [...] 10:00 AM EST Hem/Onc Treatment Hematology/Oncology Treatment, [place] 200 [place] [phone] Neisha, Chair 2 Hem Onc [facility] 200 [facility] [place], [place] [address] 08/30/2023 7:40 AM EST Laboratory Laboratory [facility] [address] [place], [place] [phone] Neisha, Lab [facility] 200 [facility] [place], [place] [address] 08/30/2023 8:45 AM EST Office Visit Hematology/Oncology [facility] 200 [facility] [place], [place] [phone] Teto Torrez MD 200 [facility], [place] [address] 08/30/2023 9:15 AM EST [facility] [address] [facility], [place] [phone] Neisha, Chair 4 Hem Onc [address] [place], [place] [address] 09/06/2023 3:00 PM EDT Office Visit Palliative Medicine [facility] 200 [facility], [place] [phone] Shante Prado MD [address] [place] [address] [place] [address] 11/15/2023 11:30 AM EDT Office Visit Urology, [facility] 132 [facility] [place] [address] Adolfo Key MD [address] [address] [place] [address] Scheduled Procedures Name Priority [...] this encounter Medical Devices Implanted Type Area Family Development Extension Specialist Device Identifier Shelf Expiration Date Model / Serial / Lot Port Implant W/8f Poly Cath - [id number] Implanted:Qty : 1 on 12/01/2022 by Brad Cerda, DO at OR [facility] Right: Chest CR BARD : PERIPHERAL VASCULAR [id number] 02/24/2024 [id number] / / [id number] System Urolift - [id number] Implanted:Qty : 6 on 05/31/2023 by Adolfo Key MD at OR [facility] [employer] 09/01/2023 [id number] / / [id number] Description:prostate documented as of this encounter Visit [...] at 1215, For 1 dose, Restricted per [facility] antiemetic guidelines Given 07/05/2023 11:54 AM EST 0.25 mg documented in this encounter Advance Directives Documents on File Type Date Recorded Patient Jockey Room Custodian Expl anation POLST 07/13/2023 4:08 PM POLST [...] Discussed due to patient's condition Care Teams Business Continuity Manager Relationship Specialty Start Date End Date Ray Royal MD [address] [place] [address] [place] [address] PCP - General Family Medicine 10/22/18 documented as of this encounter
--- OUTSIDE RECORDS SUMMARY | 2023-09-20 05:47 | External Medical Summary ---
Author Name Unknown Address Unknown Organization [id number][facility] [address] Laboratory Report Ordering Provider Test Date Status TJ SMITH 08/22/2023 10:40:00 Final Observation Date Value Abnormality Reference (Units ) Status Albumin 08/22/2023 10:40:00 3.3 Below low normal 3.8-5.0 (g/dL) Final Sex Hormone Binding Globulin 08/22/2023 10:40:00 124 Above high normal 12-91 (nmol/L) Final Testosterone [Mass/volume] in Serum or Plasma 08/22/2023 10:40:00 198.6 193.0-740.0 (ng/dL) Final Free Testosterone, calculated 08/22/2023 10:40:00 14.6 Below low normal 35.0-130.0 (pg/mL) Final Bioavailable Testosterone, calculated 08/22/2023 10:40:00 26.6 Below low normal 79.0-335.0 (ng/dL) Final Performing Location [facility] [place] [address]
--- OUTSIDE RECORDS SUMMARY | 2023-09-20 05:47 | External Medical Summary ---
Author Name Unknown Address Unknown Organization K09:[facility] [place] [facility] [place] [address] Laboratory Report Ordering Provider Test Date Status TJ SMITH 08/22/2023 10:40:34 Final Observation Date Value Abnormality Reference (Units ) Status BUN 08/22/2023 10:40:34 18 6-20 (mg/dL) Final Creatinine 08/22/2023 10:40:34 1.0 0.6-1.2 (mg/dL) Final Glomerular filtration rate/1.73 sq M.predicted [Volume Rate/Area] in Serum, Plasma or Blood by Creatinine-based formula (CKD-EPI) 08/22/2023 10:40:34 84 >=60 (mL/min) Final eGFR is calculated based on the CKD-EPI 2020 equation SODIUM 08/22/2023 10:40:34 137 135-146 (m mol/L) Final Potassium 08/22/2023 10:40:34 5.3 Above high normal 3. 5-5.1 (mmol/L) Final Cl 08/22/2023 10:40:34 101 98-107 (mm ol/L) Final CO2 08/22/2023 10:40:34 24 22-32 (mmo l/L) Final Anion gap 08/22/2023 10:40:34 12 7-15 (mmol /L) Final Glucose 08/22/2023 10:40:34 254 Above high normal 70 -120 (mg/dL) Final Albumin 08/22/2023 10:40:34 3.3 Below low normal 3.8 -5.0 (g/dL) Final AST (Aspartate aminotransferase) 08/22/2023 10:40:34 39 10-50 (U/L) Fin al Alk Phos 08/22/2023 10:40:34 190 Above high normal 35 -130 (U/L) Final Bilirubin, Total 08/22/2023 10:40:34 1.0 <=1 .2 (mg/dL) Final Calcium 08/22/2023 10:40:34 9.2 8.4-10.2 ( mg/dL) Final Protein 08/22/2023 10:40:34 6.3 6.0-8.3 (g /dL) Final ALT (Alanine aminotransferase) 08/22/2023 10:40:34 15 10-50 (U/L) Darien harris Performing Location [facility] [place] [address] [place] [address]
--- OUTSIDE RECORDS SUMMARY | 2023-09-20 05:47 | External Medical Summary | Summary of Care ---
Author Name Unknown Organization [facility] Address [address] [place] [address] Phone [phone] Care Team Providers Care Bulk Delivery Driver Name Role Phone Ray Royal MD Primary Care Provider + [phone] Reason for Visit * Reason Comments Chemotherapy C1/D1 - Gemzar * Evaluate & Treat - Unlimited Visits (Within 30 days (routine)) - Authorized Specialty Diagnoses / Procedures Referred By Mike velázquez Referred To Contact Hematology Oncology Diagnoses Gallbladder cancer (HCC) Procedures Eval/Treat Anabell Driver PA-C [address] [place] [address] Referral ID Status Reason Start Date Expiration Date Visits Requested Visits Authorized [id number] Authorized Specialty Services Required 12/01/2022 12/06/[phone] Encounter Details Date Type Department Care Team (Latest Contact Info) Description 07/18/2023 9:45 AM EST Hem/Onc Treatment Hematology/Oncolog y Treatment, [address] [address] Neisha, Chair [address] [address] Adenocarcinoma of pancreas (HCC)*; Encounter for antineoplastic chemotherapy; Metastasis to liver (HCC) Allergies No known active allergiesdocumented as of this encounter (statuses as of 08/17/2023) Medications Medication Sig Dispensed Refills Start Date [...] Muscle spasms. 30 Tablet 0 4 Active Morphine Sulfate ER 30 MG Oral Tablet Extended Release (Ms Contin)Indications :Cancer related pain Take 1 Tablet by mouth in the morning and 1 Tablet before bedtime. 30 Tablet 0 4 07/26/19 24 Discontinued oxyCODONE HCl 10 MG Oral Tablet (Roxicodone)Indica tions:Cancer related pain Take 1 Tablet by mouth every 4 hours as needed for Pain, Severe. 60 Tablet 0 4 08/08/19 24 Discontinued(Re fill) documented as of this encounter (statuses as of 08/17/2023) Active Problems Problem Noted Date Diagnosed Date [...] as of this encounter (statuses as of 08/17/2023) Immunizations Name Administration Dates Next Due COVID-19 mRNA, LNP-s, No Pre serve, 2-Dose Series (SolePower) 02/23/2021,02/02/2021 HEP A - Hepatitis A (Adult > 18 yrs) 09/21/2020, 02/10/2020 Hepatitis B, 20+ yrs 09/21/2020,03/23/2020,02/09 Pneumococcal Conjugate Vacci ne, 20-valent ([id number]) 10/26/2022(Deferred: Patient Refused) Pneumococcal Polysaccharide PPV23 (Pneumovax) [...] Nursing Notes * Elham Mcdowell RN - 07/18/2023 10:57 AM EST Goals: Patient will remain free from injury. Possible barriers to meeting goals: ambulating with IV pole Stability of the patient: Moderately stable - low risk of patient condition declining or worsening Summary regarding today's goals: Met: pt remained free of harm today Functional status at today's visit: Fully active, [...] stable condition and denied any further needs. * Elham Mcdowell RN - 07/18/2023 10:38 AM EST Chair 1. Port accessed. Patient here today to start new treatment with Gemzar, single agent. Consent was obtained and medications were reviewed with patient, patient met with Dr. Torrez prior to appointment today, see OV note for details. Patient denies any further questions in regards to the new treatment. Chemo agents Gemzar ABN Labs WNL for tx Alt in Tx: N/A Return in 1 week Safety and Risk for Injury Patient will remain free from injury. Ensure appropriate safety devices are available. Provide and maintain safe environment. documented in this encounter Plan of Treatment Upcoming Encounters Date Type Department Care Team (Late st Contact Info) Description 08/22/2023 8:50 AM EST Laboratory Laboratory [facility] [address] [place] [phone] [place], Lab [address]enery 200 [facility] [place] [address] 08/22/2023 10:00 AM EST Hem/Onc Treatment Hematology/[address]cology [address], [address] [address] Neisha, Chair 2 Hem Onc Scene 200 [facility] [place] [address] 08/30/2023 7:40 AM EST Laboratory Laboratory [facility] [place] [address] [place] [address] Neisha, Lab [address]enery 200 [facility] [place] [address] 08/30/2023 8:45 AM EST Office Visit Hematology/Oncology [facility] [place] 200 [facility] [place] [phone] Teto Torrez MD 200 [facility] [place] [address] 08/30/2023 9:15 AM EST Hem/Onc Treatment Hematology/Oncology [address], [address] [address] Neisha, Chair 4 Hem Onc [facility] 200 [facility] [place] [address] 09/06/2023 3:00 PM EDT Office Visit Palliative Medicine [facility] [address] [address] Shante Prado MD 400 [facility] [place] [address] 11/15/2023 11:30 AM EDT Office Visit Urology, [facility] [address] [place] [address] Adolfo Key MD 27 [facility] [address] [place] [address] Scheduled [...] this encounter Medical Devices Implanted Type Area Piece Dyeing Machine Tender Device Identifier Shelf Expiration Date Model / Serial / Lot Port Implant W/8f Poly Cath - [id number] Implanted:Qty : 1 on 12/01/2022 by Brad Cerda DO at OR [facility] Right: Chest CR BARD : PERIPHERAL VASCULAR [id number] 02/24/2024 [id number] / / [id number] System Urolift - [id number] Implanted:Qty : 6 on 05/31/2023 by Adolfo Key MD at OR [facility] [employer] 09/01/2023 [id number] / / [id number] Description:prostate documented as of this encounter Visit [...] weight), IV Piggyback, ONCE, 1 dose, On Mon07/18/23 at 1115, Administer over 30 Minutes Start Infusion 07/18/2023 10:17 AM EST 2,600 mg 500 mL/hr hEParin 100 UNIT/ML Lock Flush inj 500 Units 500 Units (5 mL), IV Lock, PRN Other, IV Flush, Starting on Mon07/18/23 at 0937, Until Mon07/18/23 at 1459, For 24 hours, Do not flush if lock, PICC, or central line not in place; IV infusing or unable to flush. Given 07/18/2023 10:50 AM EST 500 Units NSS infusion Intravenous, at 50 mL/hr, PRN, Starting on Mon07/18/23 at 1045, Until Mon07/18/23 at 1459, Maintenance line Start Infusion 07/18/2023 9:51 AM EST 50 mL/hr ondansetron (Zofran) tab 8 mg 8 mg, Oral, ONCE, On Mon07/18/23 at 1045, For 1 dose, Give 30 minutes prior to chemotherapy. Given 07/18/2023 9:51 AM EST 8 mg sodium chloride 0.9 % flush central line 10 mL 10 mL, IV Push, PRN Other, IV Flush, Starting on Mon07/18/23 at 0937, Until Mon07/18/23 at 1459, For 24 hours, Do not flush if lock, PICC, or central line not in place; IV infusing or unable to flush. Given 07/18/2023 10:50 AM EST 10 mL documented in this encounter Advance Directives Documents on File Type Date Recorded Patient Bank Vault Attendant Expl anation POLST 07/13/2023 4:08 PM POLST [...] Discussed due to patient's condition Care Teams Bulk Delivery Driver Relationship Specialty Start Date End Date Ray Royal MD [address] [place] [address] [place] [address] PCP - General Family Medicine 10/22/18 documented as of this encounter
--- OUTSIDE RECORDS SUMMARY | 2023-09-20 05:47 | External Medical Summary | Summary of Care ---
Author Name Unknown Organization [facility] Address [address] [place] [address] Phone [phone] Care Team Providers Care Knockdown Man Name Role Phone Ray Royal MD Primary Care Provider [phone] Reason for Visit * Reason Comments Chemotherapy Gemzar. * Evaluate & Treat - Unlimited Visits (Within 30 days (routine)) - Authorized Specialty Diagnoses / Procedures Referred By Mike velázquez Referred To Contact Hematology Oncology Diagnoses Gallbladder cancer (HCC) Procedures Eval/Treat Anabell Driver PA-C [address] [place] [address] Referral ID Status Reason Start Date Expiration Date Visits Requested Visits Authorized [id number] Authorized Specialty Services Required 12/01/2022 12/06/[phone] Encounter Details Date Type Department Care Team (Latest Contact Info) Description 07/25/2023 1:30 PM EST Hem/Onc Treatment Hematology/Oncolog y Treatment, [address] [address] Neisha, Chair 5 [address] [address] Adenocarcinoma of pancreas (HCC)*; Encounter for antineoplastic [...] for Nausea. 60 Tablet 2 4 Active Morphine Sulfate ER 30 MG [...] mRNA, LNP-s, No Pre serve, 2-Dose Series (GRAM Acquisition) 02/23/2021,02/02/2021 HEP A - Hepatitis A (Adult > 18 yrs) 09/21/2020, 02/10/2020 Hepatitis B, 20+ yrs 09/21/2020,03/23/2020,02/09 Pneumococcal Conjugate Vacci ne, 20-valent ([id number]) 10/26/2022(Deferred: Patient Refused) Pneumococcal Polysaccharide PPV23 (Pneumovax) [...] Sign Reading Time Taken Comments Blood Pressure 120/72 07/25/2023 12:29 PM EST Pulse 110 07/25/2023 12:29 PM EST Temperature 36.7 C (98.1 F) 07/25/2023 1 2:29 PM EST Respiratory Rate 18 07/25/2023 12:2 9 PM EST Oxygen Saturation 95% 07/25/2023 12: 29 PM EST Inhaled Oxygen Concentration - - Weight 116.3 kg (256 lb 6.4 oz) 024 12:29 PM EST Height - - Body Mass Index 32.05 05/31/2023 10:31 AM EST documented in this encounter Nursing Notes * Juju Hall RN - 07/25/2023 2:26 PM EST Goals: Patient will remain free [...] stable condition. * Juju Hall RN - 07/25/2023 2:08 PM EST Chair 3. Patient arrived for gemzar. Patient states has been having increased back pain at night and is keeping up awake. Let Dr. Torrez know and Dr. Torrez talked with patient and told him to increase pain medication at night, is ok for treatment today. Chemo agents Gemzar. Appetite decreased but is ok Nausea/Vomiting some nausea but no vomitting. Diarrhea no Constipation a little but has been fine lately. Mucositis no Fatigue yes Bleeding no Infection no Rash no Numbness tingling yes but has been better lately. Pain in back, see above note. Radiation no ABN Labs WNL for treatment. Alt in Tx: no Return in 2 weeks. Safety and Risk for Injury Patient will remain free from injury. Ensure appropriate safety devices are available. Provide and maintain safe environment. documented in this encounter Plan of Treatment Upcoming Encounters Date Type Department Care Team (Late st Contact Info) Description 08/22/2023 8:50 AM EST [facility] [place] [address] [place] [phone] Neisha, Lab [address]en[address] [place] [address] 08/22/2023 10:00 AM EST Hem/Onc Treatment Hematology/Oncology Treatment, [place] [address] [place] [phone] Neisha, Chair 2 Hem Onc [address] [place] [address] 08/30/2023 7:40 AM EST Laboratory Laboratory [facility] [place] 200 [facility] [place] [phone] Neisha, Lab [facility] 200 [facility] [place] [address] 08/30/2023 8:45 AM EST Office Visit Hematology/Oncology [facility] [place] 200 [facility] [place] [phone] Teto Torrez MD 200 [facility] [place] [address] 08/30/2023 9:15 AM EST [facility] [phone] Neisha, Chair 4 Hem On[address] [place] [address] 09/06/2023 3:00 PM EDT Office Visit Palliative Medicine [facility] 200 [facility], [place] [phone] Shante Prado MD 400 [facility] [place] [address] 11/15/2023 11:30 AM EDT Office Visit Urology, [facility] 132 [facility] [place] [address] Adolfo Key MD [address] [address] [place] [address] Scheduled Procedures Name Priority [...] this encounter Medical Devices Implanted Type Area Banking Paralegal Device Identifier Shelf Expiration Date Model / Serial / Lot Port Implant W/8f Poly Cath - [id number] Implanted:Qty : 1 on 12/01/2022 by Brad Cerda, at OR [facility] Right: Chest CR BARD : PERIPHERAL VASCULAR [id number] 02/24/2024 [id number] / / [id number] System Urolift - [id number] Implanted:Qty : 6 on 05/31/2023 by Adolfo Key MD at OR [facility] [employer] 09/01/2023 [id number] / / [id number] Description:prostate documented as of this encounter Visit [...] weight), IV Piggyback, ONCE, 1 dose, On Mon07/25/23 at 1400, Administer over 30 Minutes Start Infusion 07/25/2023 1:47 PM EST 2,600 mg 500 mL/hr hEParin 100 UNIT/ML Lock Flush inj 500 Units 500 Units (5 mL), IV Lock, PRN Other, IV Flush, Starting on Mon07/25/23 at 1228, Until Mon07/25/23 at 1831, For 24 hours, Do not flush if lock, PICC, or central line not in place; IV infusing or unable to flush. Given 07/25/2023 2:20 PM EST 500 Units NSS infusion Intravenous, at 50 mL/hr, PRN, Starting on Mon07/25/23 at 1330, Until Mon07/25/23 at 1831, Maintenance line Start Infusion 07/25/2023 1:10 PM EST 50 mL/hr ondansetron (Zofran) tab 8 mg 8 mg, Oral, ONCE, On Mon07/25/23 at 1300, For 1 dose, Give 30 minutes prior to chemotherapy. Given 07/25/2023 1:18 PM EST 8 mg sodium chloride 0.9 % flush central line 10 mL 10 mL, IV Push, PRN Other, IV Flush, Starting on Mon07/25/23 at 1228, Until Mon07/25/23 at 1831, For 24 hours, Do not flush if lock, PICC, or central line not in place; IV infusing or unable to flush. Given 07/25/2023 2:20 PM EST 10 mL documented in this encounter Advance Directives Documents on File Type Date Recorded Patient Honey Producer Expl anation POLST 07/13/2023 4:08 PM POLST [...] Discussed due to patient's condition Care Teams Knockdown Man Relationship Specialty Start Date End Date Ray Royal MD [address] [place] [address] [place] [address] PCP - General Family Medicine 10/22/18 documented as of this encounter
--- OUTSIDE RECORDS SUMMARY | 2023-09-20 05:47 | External Medical Summary | Summary of Care ---
Author Name Unknown Organization [facility] Address [address] [place] [address] Phone [phone] Care Team Providers Care Information Technology Technician Name Role Phone Ray Royal MD Primary Care Provider [phone] Reason for Visit * Reason Comments Chemotherapy Gemzar. * Evaluate & Treat - Unlimited Visits (Within 30 days (routine)) - Authorized Specialty Diagnoses / Procedures Referred By Mike velázquez Referred To Contact Hematology Oncology Diagnoses Gallbladder cancer (HCC) Procedures Eval/Treat Anabell Driver PA-C [address] [place] [address] Referral ID Status Reason Start Date Expiration Date Visits Requested Visits Authorized [id number] Authorized Specialty Services Required 12/01/2022 12/06/[phone] Encounter Details Date Type Department Care Team (Latest Contact Info) Description 07/25/2023 1:30 PM EST Hem/Onc Treatment Hematology/Oncolog y Treatment, [address] [address] Neisha, Chair 5 [address] On[address] [address] Adenocarcinoma of pancreas (HCC)*; Encounter for antineoplastic [...] mRNA, LNP-s, No Pre serve, 2-Dose Series (Good Eggs) 02/23/2021,02/02/2021 HEP A - Hepatitis A (Adult > 18 yrs) 09/21/2020, 02/10/2020 Hepatitis B, 20+ yrs 09/21/2020,03/23/2020,02/09 Pneumococcal Conjugate Vacci ne, 20-valent (Glkuqne72) 10/26/2022(Deferred: Patient Refused) Pneumococcal Polysaccharide PPV23 (Pneumovax) [...] Description 08/22/2023 8:50 AM EST [facility] [place] [address] [place] [phone] Neisha, Lab [address] [place] [address] 08/22/2023 10:00 AM EST Hem/Onc Treatment Hematology/Oncology Treatment, [place] [address] [place] [phone] Neisha, Chair 2 Hem Onc [address] [place] [address] 08/30/2023 7:40 AM EST Laboratory Laboratory [facility] [place] 200 [facility] [place] [phone] Neisha, Lab [facility] 200 [facility] [place] [address] 08/30/2023 8:45 AM EST Office Visit Hematology/Oncology [facility] [place] 200 [facility] [place] [phone] Teto Torrez MD 200 [place] [address] 08/30/2023 9:15 AM EST Hem[facility] 200 [facility] [phone] Neisha, Chair 4 Hem On[address] [place] [address] 09/06/2023 3:00 PM EDT Office Visit Palliative Medicine [facility] 200 [facility], [place] [phone] Shante Prado MD 400 [facility] [place] [address] 11/15/2023 11:30 AM EDT Office Visit Urology, [facility] 132 [facility] [place] [address] Adolfo Key MD [address] [address] [place] [address] Scheduled Procedures Name Priority [...] this encounter Medical Devices Implanted Type Area Product Support Representative Device Identifier Shelf Expiration Date Model / Serial / Lot Port Implant W/8f Poly Cath - [id number] Implanted:Qty : 1 on 12/01/2022 by Brad Cerda, at OR [facility] Right: Chest CR BARD : PERIPHERAL VASCULAR [id number] 02/24/2024 [id number] / / [id number] System Urolift - [id number] Implanted:Qty : 6 on 05/31/2023 by Adolfo Key MD at OR [facility] [employer] 09/01/2023 [id number] / / [id number] Description:prostate documented as of this encounter Visit [...] Documents on File Type Date Recorded Patient Tabulating Machine Mechanic Expl anation POLST 07/13/2023 4:08 PM [...] Discussed due to patient's condition Care Teams Information Technology Technician Relationship Specialty Start Date End Date Ray Royal MD [address] [place] [address] [place] [address] PCP - General Family Medicine 10/22/18 documented as of this encounter
--- OUTSIDE RECORDS SUMMARY | 2023-09-20 05:47 | External Medical Summary ---
Author Name Unknown Address Unknown Organization K09[facility] [place] [address] Laboratory Report Ordering Provider Test Date Status TJ SMITH 08/22/2023 10:40:34 Final Observation Date Value Abnormality Reference (Units ) Status SYNC LEUKOCYTES IN BLOOD BY AUTOMATED COUNT 08/22/2023 10:40:34 9.48 4.00-10.80 (K/uL) Final Segs 08/22/2023 10:40:34 83.3 Above high normal 40.0-75.0 (%) Final Lymphs % 08/22/2023 10:40:34 6.9 Below low normal 18.0-42.0 (%) Final Monos 08/22/2023 10:40:34 8.9 1.0-11.0 (%) Final Eosinophils 08/22/2023 10:40:34 0.8 0.0-6.0 (%) Final Basos 08/22/2023 10:40:34 0.1 0.0-2.0 (%) Final Absolute Segs 08/22/2023 10:40:34 7.90 Above high normal 1.80-7.70 (K/uL) Final Lymphs, absolute 08/22/2023 10:40:34 0.65 Below low normal 1.00-4.80 (K/ul) Final Monos, Abs 08/22/2023 10:40:34 0.84 0.00-1.10 (K/uL) Final Eos, Abs 08/22/2023 10:40:34 0.08 0.00-0.70 (K/uL) Final Basos, Abs 08/22/2023 10:40:34 0.01 0.00-0.20 (K/uL) Final Performing Location [facility] [place] [address]
--- OUTSIDE RECORDS SUMMARY | 2023-09-20 05:47 | External Medical Summary ---
Author Name Unknown Address Unknown Organization K09[facility] [place] [address] Laboratory Report Ordering Provider Test Date Status TJ SMITH 08/22/2023 10:40:34 Final Observation Date Value Abnormality Reference (Units ) Status WBC, Total 08/22/2023 10:40:34 9.48 4.00-10.8 0 (K/uL) Final RBC 08/22/2023 10:40:34 3.37 4.50-5.25 (M/uL) Final Hemoglobin 08/22/2023 10:40:34 10.7 Below low normal 14 .0-16.8 (g/dL) Final HCT 08/22/2023 10:40:34 34.7 Below low normal 40. 0-48.4 (%) Final MCV 08/22/2023 10:40:34 103.0 82.0-99.5 (fL) Final MCH 08/22/2023 10:40:34 31.8 27.0-34.0 (pg) Final MCHC 08/22/2023 10:40:34 30.8 32.0-36.0 (g/dL) Final RDW 08/22/2023 10:40:34 18.7 11.5-15.5 (%) Final Platelets 08/22/2023 10:40:34 230 140-400 (K /uL) Final MPV 08/22/2023 10:40:34 11.6 6.6-11.1 ( fL) Final Performing Location [facility] [place] [address]
--- OUTSIDE RECORDS SUMMARY | 2023-09-20 05:47 | External Medical Summary | Summary of Care ---
Author Name Unknown Organization [facility] Address [address] [place] [address] Phone [phone] Care Team Providers Care Endoscope Technician Name Role Phone Ray Royal MD Primary Care Provider + [phone] Reason for Visit * Reason Onset Date Comments Forms Request 08/18/2023 Encounter Details Date Type Department Care Team (Late st Contact Info) Description 08/18/2023 Telephone Hematology/Oncology Treatment, [place] [address] [place] [address] Teto Torrez MD 200 [place] [address] Forms Request Allergies No known active allergiesdocumented as of this encounter (statuses as of 08/18/2023) Medications Medication Sig Dispensed Refills Start Date [...] as of this encounter (statuses as of 08/18/2023) Active Problems Problem Noted Date Diagnosed Date Dehydration 08/09/2023 Food insecurity 06/05/2023 Overview: Per [facility] Protocol Urethral stricture 04/03/2023 Slow urinary [...] as of this encounter (statuses as of 08/18/2023) Immunizations Name Administration Dates Next Due COVID-19 mRNA, LNP-s, No Pre serve, 2-Dose Series (Loaded Pocket) 02/23/2021,02/02/2021 HEP A - Hepatitis A (Adult > 18 yrs) 09/21/2020, 02/10/2020 Hepatitis B, 20+ yrs 09/21/2020,03/23/2020,02/09 Pneumococcal Conjugate Vacci ne, 20-valent ([id number]) 10/26/2022(Deferred: Patient Refused) Pneumococcal Polysaccharide PPV23 (Pneumovax) [...] Telephone Encounter - Starla Casanova RN - 08/18/2023 12:03 PM EST Updated form completed and faxed to [facility]. documented in this encounter Plan of Treatment Upcoming Encounters Date Type Department Care Team (Late st Contact Info) Description 08/22/2023 8:50 AM EST Laboratory Laboratory [facility] [place] [address] [place] [phone] Patricio Driver [address] [facility] [place], [place] [address] 08/22/2023 10:00 AM EST Hem/Onc Treatment Hematology/Oncology Treatment, [place] [address] [place] [address] Neisha, Chair 2 Hem Onc [facility] [address] [place] [address] 08/30/2023 7:40 AM EST Laboratory Laboratory [facility] [address] [place] [address] Neisha Lab Tisha [address] [facility] [place] [address] 08/30/2023 8:45 AM EST Office Visit Hematology/Oncology Tisha Driver [place] [address] Teto Torrez MD 200 [facility] [address] 08/30/2023 9:15 AM EST Hem/Onc Treatment Hematology/Oncology Treatment, [place] 200 [facility] [phone] Park, Chair 4 Hem Onc [address] [place] [address] 09/06/2023 3:00 PM EDT Office Visit Palliative Medicine [facility] 200 [facility] [phone] Shante Prado MD 400 [facility] [place] [address] 11/15/2023 11:30 AM EDT Office Visit Urology, [facility] 132 [facility] [place] [address] Adolfo Key MD 27 [facility] [address] [place] [address] Scheduled Procedures Name Priority Associated Diagnoses [...] this encounter Medical Devices Implanted Type Area R&D Engineer Device Identifier Shelf Expiration Date Model / Serial / Lot Port Implant W/8f Poly Cath - [id number] Implanted:Qty : 1 on 12/01/2022 by Brad Cerda DO at OR [facility] Right: Chest CR BARD : PERIPHERAL VASCULAR [id number] 02/24/2024 [id number] / / [id number] System Urolift - [id number] Implanted:Qty : 6 on 05/31/2023 by Adolfo Key MD at OR [facility] [employer] 09/01/2023 [id number] / / [id number] Description:prostate documented as of this encounter Advance Directives Documents on File Type Date Recorded Patient Compound Specialist Expl anation POLST 07/13/2023 4:08 PM [...] Discussed due to patient's condition Care Teams Endoscope Technician Relationship Specialty Start Date End Date Ray Royal MD [address] [place] [address] [place] [address] PCP - General Family Medicine 10/22/18 documented as of this encounter
--- OUTSIDE RECORDS SUMMARY | 2023-09-20 05:47 | External Medical Summary ---
Author Name Unknown Address Unknown Organization K09[facility] [place] [address] Laboratory Report Ordering Provider Test Date Status TJ SMITH 08/22/2023 10:40:34 Final Observation Date Value Abnormality Reference (Units ) Status Nucleated erythrocytes/100 leukocytes [Ratio] in Blood by Automated count 08/22/2023 10:40:34 Final Performing Location [facility] [place] [address]
--- OUTSIDE RECORDS SUMMARY | 2023-09-20 05:47 | External Medical Summary | Summary of Care ---
Author Name Unknown Organization [facility] Address [address] [place] [address] Phone [phone] Care Team Providers Care A Operator Name Role Phone Ray Royal MD Primary Care Provider + [phone] Reason for Visit * Reason Comments Chemotherapy C1/D1 - Gemzar * Evaluate & Treat - Unlimited Visits (Within 30 days (routine)) - Authorized Specialty Diagnoses / Procedures Referred By Mike velázquez Referred To Contact Hematology Oncology Diagnoses Gallbladder cancer (HCC) Procedures Eval/Treat Anabell Driver PA-C [address] [place] [address] Referral ID Status Reason Start Date Expiration Date Visits Requested Visits Authorized [id number] Authorized Specialty Services Required 12/01/2022 12/06/[phone] Encounter Details Date Type Department Care Team (Latest Contact Info) Description 07/18/2023 9:45 AM EST Hem/Onc Treatment Hematology/Oncolog y Treatment, [address] [address] Neisha, Chair 10 Hem On[address] [address] Adenocarcinoma of pancreas (HCC)*; Encounter for antineoplastic [...] mRNA, LNP-s, No Pre serve, 2-Dose Series (Kanchufang) 02/23/2021,02/02/2021 HEP A - Hepatitis A (Adult > 18 yrs) 09/21/2020, 02/10/2020 Hepatitis B, 20+ yrs 09/21/2020,03/23/2020,02/09 Pneumococcal Conjugate Vacci ne, 20-valent ([id number]) 10/26/2022(Deferred: Patient Refused) Pneumococcal Polysaccharide PPV23 (Pneumovax) [...] Description 08/22/2023 8:50 AM EST Laboratory Laboratory [facility] [address] [phone] [place], Lab Scenery 200 [facility] [place] [address] 08/22/2023 10:00 AM EST Hem/Onc Treatment Hematology/Oncology Treatment, [address] [address] Neisha, Chair 2 Hem Onc Scene 200 [facility] [place] [address] 08/30/2023 7:40 AM EST Laboratory Laboratory [facility] [place] [address] [place] [address] Neisha, Lab Scenery 200 [facility] [place] [address] 08/30/2023 8:45 AM EST Office Visit Hematology/Oncology [facility] [place] 200 [facility] [place] [address] Teto Torrez MD 200 [facility] [place] [address] 08/30/2023 9:15 AM EST Hem/Onc Treatment Hematology/Oncology Treatment, [address] [address] Neisha, Chair 4 Hem Onc [facility] 200 [facility] [place] [address] 09/06/2023 3:00 PM EDT Office Visit Palliative Medicine [facility] [address] [address] Shante Prado MD 400 [facility] [place] [address] 11/15/2023 11:30 AM EDT Office Visit Urology, [facility] [address] [place] [address] Adolfo Key MD 27 [facility] [address] [place] [address] [...] this encounter Medical Devices Implanted Type Area Citizenship Instructor Device Identifier Shelf Expiration Date Model / Serial / Lot Port Implant W/8f Poly Cath - [id number] Implanted:Qty : 1 on 12/01/2022 by Brad Cerda DO at OR [facility] Right: Chest CR BARD : PERIPHERAL VASCULAR [id number] 02/24/2024 [id number] / / [id number] System Urolift - [id number] Implanted:Qty : 6 on 05/31/2023 by Adolfo Key MD at OR [facility] [employer] 09/01/2023 [id number] / / [id number] Description:prostate documented as of this encounter Visit [...] Documents on File Type Date Recorded Patient Machine Featheredger And Reducer Expl anation POLST 07/13/2023 4:08 PM POLST [...] Discussed due to patient's condition Care Teams A Operator Relationship Specialty Start Date End Date Ray Royal MD [address] [place] [address] [place] [address] PCP - General Family Medicine 10/22/18 documented as of this encounter
--- OUTSIDE RECORDS SUMMARY | 2023-09-20 05:47 | External Medical Summary | Summary of Care ---
Author Name Unknown Organization [facility] Address [address] [place] [address] Phone [phone] Care Team Providers Care Story Editor Name Role Phone aRy Royal MD Primary Care Provider [phone] Reason for Visit * Reason Comments Chemotherapy Gemzar. * Evaluate & Treat - Unlimited Visits (Within 30 days (routine)) - Authorized Specialty Diagnoses / Procedures Referred By Mike velázquez Referred To Contact Hematology Oncology Diagnoses Gallbladder cancer (HCC) Procedures Eval/Treat Anabell Driver PA-C [address] [place] [address] Referral ID Status Reason Start Date Expiration Date Visits Requested Visits Authorized [id number] Authorized Specialty Services Required 12/01/2022 12/06/[phone] Encounter Details Date Type Department Care Team (Latest Contact Info) Description 07/25/2023 1:30 PM EST Hem/Onc Treatment Hematology/Oncolog y Treatment, [address] [address] Neisha, Chair 5 Hem On[address] [address] Adenocarcinoma of pancreas (HCC)*; Encounter for antineoplastic [...] mRNA, LNP-s, No Pre serve, 2-Dose Series (CareCloud) 02/23/2021,02/02/2021 HEP A - Hepatitis A (Adult > 18 yrs) 09/21/2020, 02/10/2020 Hepatitis B, 20+ yrs 09/21/2020,03/23/2020,02/09 Pneumococcal Conjugate Vacci ne, 20-valent ([id number]) 10/26/2022(Deferred: Patient Refused) Pneumococcal Polysaccharide PPV23 (Pneumovax) [...] Description 08/22/2023 8:50 AM EST Laboratory Laboratory [facility] [place] [address] [place] [phone] Neisha, Lab Scenery [address] [place] [address] 08/22/2023 10:00 AM EST Hem/Onc Treatment Hematology/Oncology Treatment, [place] [address] [place] [address] Neisha, Chair 2 Hem Onc [address]en[address] [place] [address] 08/30/2023 7:40 AM EST Laboratory Laboratory [facility] [place] 200 [facility] [place] [phone] Neisha, Lab [facility] 200 [facility] [place] [address] 08/30/2023 8:45 AM EST Office Visit Hematology/Oncology [facility] [place] 200 [facility] [place] [phone] Teto Torrez MD 200 [facility] [place] [place] [address] 08/30/2023 9:15 AM EST Hem[facility] [phone] Neisha, Chair 4 Hem Onc [address] [place] [address] 09/06/2023 3:00 PM EDT Office Visit Palliative Medicine [facility] 200 [facility], [place] [phone] Shante Prado MD 400 [facility] [place] [address] 11/15/2023 11:30 AM EDT Office Visit Urology, [facility] 132 [facility] [place] [address] Adolfo Key MD [address] [address] [place] [address] Scheduled Procedures Name Priority [...] encounter Medical Devices Implanted Type Area Cash Processing Specialist Device Identifier Shelf Expiration Date Model / Serial / Lot Port Implant W/8f Poly Cath - [id number] Implanted:Qty : 1 on 12/01/2022 by Brad Cerda, at OR [facility] Right: Chest CR BARD : PERIPHERAL VASCULAR [id number] 02/24/2024 [id number] / / [id number] System Urolift - [id number] Implanted:Qty : 6 on 05/31/2023 by Adolfo Key MD at OR [facility] [employer] 09/01/2023 [id number] / / [id number] Description:prostate documented as of this encounter Visit [...] Documents on File Type Date Recorded Patient Planting Material Remover Expl anation POLST 07/13/2023 4:08 PM POLST [...] Discussed due to patient's condition Care Teams Story Editor Relationship Specialty Start Date End Date Ray Royal MD [address] [place] [address] [place] [address] PCP - General Family Medicine 10/22/18 documented as of this encounter
--- OUTSIDE RECORDS SUMMARY | 2023-09-20 05:47 | External Medical Summary | Summary of Care ---
Author Name Unknown Organization [facility] Address [address] [place] [address] Phone [phone] Care Team Providers Care Skein Straightener Name Role Phone Ray Royal MD Primary Care Provider + [phone] Reason for Visit * Reason Comments Chemotherapy C1/D1 - Gemzar * Evaluate & Treat - Unlimited Visits (Within 30 days (routine)) - Authorized Specialty Diagnoses / Procedures Referred By iMke velázquez Referred To Contact Hematology Oncology Diagnoses Gallbladder cancer (HCC) Procedures Eval/Treat Anabell Driver PA-C [address] [place] [address] Referral ID Status Reason Start Date Expiration Date Visits Requested Visits Authorized [id number] Authorized Specialty Services Required 12/01/2022 12/06/[phone] Encounter Details Date Type Department Care Team (Latest Contact Info) Description 07/18/2023 9:45 AM EST Hem/Onc Treatment Hematology/Oncolog y Treatment, [address] [address] Neisha, Chair 10 Hem On[address] [address] Adenocarcinoma of pancreas (HCC)*; Encounter for antineoplastic [...] mRNA, LNP-s, No Pre serve, 2-Dose Series (CanWeNetwork) 02/23/2021,02/02/2021 HEP A - Hepatitis A (Adult > 18 yrs) 09/21/2020, 02/10/2020 Hepatitis B, 20+ yrs 09/21/2020,03/23/2020,02/09 Pneumococcal Conjugate Vacci ne, 20-valent ([id number]) 10/26/2022(Deferred: Patient Refused) Pneumococcal Polysaccharide PPV23 (Pneumovax) [...] Description 08/22/2023 8:50 AM EST Laboratory Laboratory [facility] [address] [place] [phone] [place], Lab Scenery 200 [facility] [place] [address] 08/22/2023 10:00 AM EST Hem/Onc Treatment Hematology/Oncology Treatment, [address] [address] Neisha, Chair 2 Hem Onc Scene 200 [facility] [place] [address] 08/30/2023 7:40 AM EST Laboratory Laboratory [facility] [place] [address] [place] [address] Neisha, Lab Scenery 200 [facility] [place] [address] 08/30/2023 8:45 AM EST Office Visit Hematology/Oncology [facility] [place] 200 [facility] [place] [phone] Teto Torrez MD 200 [facility] [place] [address] 08/30/2023 9:15 AM EST Hem/Onc Treatment Hematology/Oncology Treatment, [address] [address] Neisha, Chair 4 Hem Onc [facility] 200 [facility] [place] [address] 09/06/2023 3:00 PM EDT Office Visit Palliative Medicine [facility] [address] [address] Shante Prado MD 400 [facility] [place] [address] 11/15/2023 11:30 AM EDT Office Visit Urology, [facility] [address] [place] [address] Adolfo Key MD 27 [facility] [address] [place] [address] Scheduled Procedures Name [...] this encounter Medical Devices Implanted Type Area Seal Mixing Operator Device Identifier Shelf Expiration Date Model / Serial / Lot Port Implant W/8f Poly Cath - [id number] Implanted:Qty : 1 on 12/01/2022 by Bard Cerda DO at OR [facility] Right: Chest CR BARD : PERIPHERAL VASCULAR [id number] 02/24/2024 [id number] / / [id number] System Urolift - [id number] Implanted:Qty : 6 on 05/31/2023 by Adolfo Key MD at OR [facility] [employer] 09/01/2023 [id number] / / [id number] Description:prostate documented as of this encounter Visit [...] Documents on File Type Date Recorded Patient Warehouse Representative Expl anation POLST 07/13/2023 4:08 PM [...] Discussed due to patient's condition Care Teams Skein Straightener Relationship Specialty Start Date End Date Ray Royal MD [address] [place] [address] [place] [address] PCP - General Family Medicine 10/22/18 documented as of this encounter
--- OUTSIDE RECORDS SUMMARY | 2023-09-20 05:47 | External Medical Summary | Summary of Care ---
Author Name Unknown Organization [facility] Address [address] [place] [address] Phone [phone] Care Team Providers Care Econometrician Name Role Phone Ray Royal MD Primary Care Provider + [phone] Reason for Visit * Reason Comments Chemotherapy C1/D1 - Gemzar * Evaluate & Treat - Unlimited Visits (Within 30 days (routine)) - Authorized Specialty Diagnoses / Procedures Referred By Mike velázquez Referred To Contact Hematology Oncology Diagnoses Gallbladder cancer (HCC) Procedures Eval/Treat Anabell Driver PA-C [address] [place] [address] Referral ID Status Reason Start Date Expiration Date Visits Requested Visits Authorized [id number] Authorized Specialty Services Required 12/01/2022 12/06/[phone] Encounter Details Date Type Department Care Team (Latest Contact Info) Description 07/18/2023 9:45 AM EST Hem/Onc Treatment Hematology/Oncolog y Treatment, [address] [address] Neisha, Chair 10 Hem On[address] [address] Adenocarcinoma of pancreas (HCC)*; Encounter for antineoplastic [...] mRNA, LNP-s, No Pre serve, 2-Dose Series (FantasyBook) 02/23/2021,02/02/2021 HEP A - Hepatitis A (Adult > 18 yrs) 09/21/2020, 02/10/2020 Hepatitis B, 20+ yrs 09/21/2020,03/23/2020,02/09 Pneumococcal Conjugate Vacci ne, 20-valent ([id number]) 10/26/2022(Deferred: Patient Refused) Pneumococcal Polysaccharide PPV23 (Pneumovax) [...] Description 08/22/2023 8:50 AM EST Laboratory Laboratory [facility] [address] [place] [phone] [place], Lab Scenery 200 [facility] [place] [address] 08/22/2023 10:00 AM EST Hem/Onc Treatment Hematology/Oncology Treatment, [address] [address] Neisha, Chair 2 Hem Onc Scene 200 [facility] [place] [address] 08/30/2023 7:40 AM EST Laboratory Laboratory [facility] [place] [address] [place] [address] Ne[place], Lab Scenery 200 [facility] [place] [address] 08/30/2023 8:45 AM EST Office Visit Hematology/Oncology [facility] [place] 200 [facility] [place] [address] Teto Torrez MD 200 [facility] [place] [address] 08/30/2023 9:15 AM EST Hem/Onc Treatment Hematology/Oncology Treatment, [address] [address] Neisha, Chair 4 Hem Onc [facility] 200 [facility] [place] [address] 09/06/2023 3:00 PM EDT Office Visit Palliative Medicine [facility] [address] [address] Shante Prado MD 400 [facility] [place] [address] 11/15/2023 11:30 AM EDT Office Visit Urology, [facility] [address] [place] [address] Adolfo Key MD 27 [facility] [address] [place] [address] Scheduled Procedures Name [...] this encounter Medical Devices Implanted Type Area Supervisor Case Loading Device Identifier Shelf Expiration Date Model / Serial / Lot Port Implant W/8f Poly Cath - [id number] Implanted:Qty : 1 on 12/01/2022 by Brad Cerda DO at OR [facility] Right: Chest CR BARD : PERIPHERAL VASCULAR [id number] 02/24/2024 [id number] / / [id number] System Urolift - [id number] Implanted:Qty : 6 on 05/31/2023 by Adolfo Key MD at OR [facility] [employer] 09/01/2023 [id number] / / [id number] Description:prostate documented as of this encounter Visit [...] Documents on File Type Date Recorded Patient Construction Area Manager Expl anation POLST 07/13/2023 4:08 PM [...] Discussed due to patient's condition Care Teams Econometrician Relationship Specialty Start Date End Date Ray Royal MD [address] [place] [address] [place] [address] PCP - General Family Medicine 10/22/18 documented as of this encounter
--- OUTSIDE RECORDS SUMMARY | 2023-09-20 05:47 | External Medical Summary | Summary of Care ---
Author Name Unknown Organization [facility] Address [address] [place] [address] Phone [phone] Care Team Providers Care Platemaker Name Role Phone Ray Royal MD Primary Care Provider + [phone] Reason for Visit * Reason Comments Chemotherapy C14/D1 - FOLFIRI * Evaluate & Treat - Unlimited Visits (Within 30 days (routine)) - Authorized Specialty Diagnoses / Procedures Referred By Mike velázquez Referred To Contact Hematology Oncology Diagnoses Gallbladder cancer (HCC) Procedures Eval/Treat Anabell Driver PA-C [address] [place] [address] Referral ID Status Reason Start Date Expiration Date Visits Requested Visits Authorized [id number] Authorized Specialty Services Required 12/01/2022 12/06/[phone] Encounter Details Date Type Department Care Team (Latest Contact Info) Description 07/05/2023 11:30 AM EST Hem/Onc Treatment Hematology/Oncolog y Treatment, [address] [address] Neisha, Chair 2 Hem On[address] [address] Adenocarcinoma of pancreas (HCC)*; Metastasis to liver [...] mRNA, LNP-s, No Pre serve, 2-Dose Series (PrecisionPoint Software) 02/23/2021,02/02/2021 HEP A - Hepatitis A (Adult > 18 yrs) 09/21/2020, 02/10/2020 Hepatitis B, 20+ yrs 09/21/2020,03/23/2020,02/09 Pneumococcal Conjugate Vacci ne, 20-valent (Sbsngcq22) 10/26/2022(Deferred: Patient Refused) Pneumococcal Polysaccharide PPV23 (Pneumovax) [...] or not, then patient can drive to [place] for his PET scan for 1145. Patient communicated understanding regarding this plan. Patient is ordered Percocet (10 oxycodone/325 Tylenol) Q6 PRN, which was recently added/increased/adjusted just 1 week ago by palliative TOWER SUPERVISOR Rachel Rucker. Patient says he does not [...] EST Hem/Onc Treatment Hematology/Oncology Treatment, [place] 200 [place] [phone] Neisha, Chair 2 Hem Onc [facility] 200 [facility] [place], [place] [address] 08/30/2023 7:40 AM EST Laboratory Laboratory [facility] [address] [place], [place] [phone] Neisha, Lab [facility] 200 [facility] [place], [place] [address] 08/30/2023 8:45 AM EST Office Visit Hematology/Oncology [facility] 200 [facility] [place], [place] [phone] Teto Torrez MD 200 [facility], [place] [address] 08/30/2023 9:15 AM EST Hem[facility] 200 [facility], [place] [phone] Neisha, Chair 4 Hem Onc [address] [place], [place] [address] 09/06/2023 3:00 PM EDT Office Visit Palliative Medicine [facility] 200 [facility], [place] [phone] Shante Prado MD [address] [place] [address] [place] [address] 11/15/2023 11:30 AM EDT Office Visit Urology, [facility] 132 [facility] [place] [address] Adolfo Key MD [address] [address] [place] [address] Scheduled Procedures Name Priority [...] this encounter Medical Devices Implanted Type Area Joint Supervisor Device Identifier Shelf Expiration Date Model / Serial / Lot Port Implant W/8f Poly Cath - [id number] Implanted:Qty : 1 on 12/01/2022 by Brad Cerda, DO at OR [facility] Right: Chest CR BARD : PERIPHERAL VASCULAR [id number] 02/24/2024 [id number] / / [id number] System Urolift - [id number] Implanted:Qty : 6 on 05/31/2023 by Adolfo Key MD at OR [facility] [employer] 09/01/2023 [id number] / / [id number] Description:prostate documented as of this encounter Visit [...] at 1215, For 1 dose, Restricted per [facility] antiemetic guidelines Given 07/05/2023 11:54 AM EST 0.25 mg documented in this encounter Advance Directives Documents on File Type Date Recorded Patient Speech And Language Clinician Expl anation POLST 07/13/2023 4:08 PM POLST [...] Discussed due to patient's condition Care Teams Platemaker Relationship Specialty Start Date End Date Ray Royal MD [address] [place] [address] [place] [address] PCP - General Family Medicine 10/22/18 documented as of this encounter
--- OUTSIDE RECORDS SUMMARY | 2023-09-20 05:48 | External Medical Summary | Summary of Care ---
Author Name Unknown Organization [facility] Address [address] [place] [address] Phone [phone] Care Team Providers Care Battery Installer Name Role Phone Ray Royal MD Primary Care Provider [phone] Reason for Visit * Reason Onset Date Comments Palliative Care Follow-up 08/16/2023 Encounter Details Date Type Department Care Team (Late st Contact Info) Description 08/16/2023 Telephone Palliative Medicine, [address] 5th [place] [address] Shante Prado MD [address] [place] [address] Palliative Care Follow-up Allergies No known active allergiesdocumented as of this encounter (statuses as of 08/16/2023) Medications Medication Sig Dispensed Refills Start Date [...] as of this encounter (statuses as of 08/16/2023) Active Problems Problem Noted Date Diagnosed Date [...] as of this encounter (statuses as of 08/16/2023) Immunizations Name Administration Dates Next Due COVID-19 mRNA, LNP-s, No Pre serve, 2-Dose Series (Nuxeo) 02/23/2021,02/02/2021 HEP A - Hepatitis A (Adult > 18 yrs) 09/21/2020, 02/10/2020 Hepatitis B, 20+ yrs 09/21/2020,03/23/2020,02/09 Pneumococcal Conjugate Vacci ne, 20-valent ([id number]) 10/26/2022(Deferred: Patient Refused) Pneumococcal Polysaccharide PPV23 (Pneumovax) [...] Description 08/22/2023 8:50 AM EST Laboratory Laboratory [facility] [place] [address] [place] [phone] Patricio Driver [address] [place] [address] 08/22/2023 10:00 AM EST Hem/Onc Treatment Hematology/Oncology Treatment, [place] [address] [place] [phone] Neisha, Chair 2 Hem Onc [facility] 200 [facility] [place] [address] 08/25/2023 9:45 AM EST Telemedicine Urology Luli Sanchez [address] [place] [address] Adolfo Key MD [address] [place] [address] [place] [address] 7, Telemed [facility] Urology Ex Rm [address] [place] [address] 08/30/2023 7:40 AM EST Laboratory Laboratory [facility] [place] [address] [place] [phone] [place], Lab [address] [place] [address] 08/30/2023 8:45 AM EST Office Visit Hematology/Oncology [address] [place] [phone] Teto Torrez MD [address] [place] [address] [place] [address] 08/30/2023 9:15 AM EST Hem/Onc Treatment Hematology/Oncology Treatment[address] [place] [phone] Neisha, Chair 4 Hem Onc [address] [place] [address] 09/06/2023 3:00 PM EDT Office Visit Palliative Medicine [address] [place] [address] Shante Prado MD 400 [facility] [place] [address] 11/15/2023 11:30 AM EDT Office Visit Urology, [facility] 132 [facility] [place] [address] Adolfo Key MD [address] [address] [place] [address] Scheduled Procedures Name Priority Associated Diagnoses [...] this encounter Medical Devices Implanted Type Area Records Officer Device Identifier Shelf Expiration Date Model / Serial / Lot Port Implant W/8f Poly Cath - [id number] Implanted:Qty : 1 on 12/01/2022 by Brad Cerda DO at OR [facility] Right: Chest CR BARD : PERIPHERAL VASCULAR [id number] 02/24/2024 [id number] / / [id number] System Urolift - [id number] Implanted:Qty : 6 on 05/31/2023 by Adolfo Key MD at OR [facility] [employer] 09/01/2023 [id number] / / [id number] Description:prostate documented as of this encounter Advance Directives Documents on File Type Date Recorded Patient Strategic Manager Tracie guthrie POLST 07/13/2023 4:08 PM POLST [...] Discussed due to patient's condition Care Teams Battery Installer Relationship Specialty Start Date End Date Ray Royal MD [address] [place] [address] [place] [address] PCP - General Family Medicine 10/22/18 documented as of this encounter
--- OUTSIDE RECORDS SUMMARY | 2023-09-20 05:48 | External Medical Summary | Summary of Care ---
Author Name Unknown Organization [facility] Address [address] [place] [address] Phone [phone] Care Team Providers Care Clothing Pattern Preparer Name Role Phone Ray Royal MD Primary Care Provider + [phone] Reason for Visit * Reason Comments Chemotherapy C1/D1 - Gemzar * Evaluate & Treat - Unlimited Visits (Within 30 days (routine)) - Authorized Specialty Diagnoses / Procedures Referred By Mike velázquez Referred To Contact Hematology Oncology Diagnoses Gallbladder cancer (HCC) Procedures Eval/Treat Anabell Driver PA-C [address] [place] [address] Referral ID Status Reason Start Date Expiration Date Visits Requested Visits Authorized [id number] Authorized Specialty Services Required 12/01/2022 12/06/[phone] Encounter Details Date Type Department Care Team (Latest Contact Info) Description 07/18/2023 9:45 AM EST Hem/Onc Treatment Hematology/Oncolog y Treatment, [address] [address] Neisha, Chair 10 Hem On[address] [address] Adenocarcinoma of pancreas (HCC)*; Encounter for antineoplastic [...] mRNA, LNP-s, No Pre serve, 2-Dose Series ([employer]) 02/23/2021,02/02/2021 HEP A - Hepatitis A (Adult > 18 yrs) 09/21/2020, 02/10/2020 Hepatitis B, 20+ yrs 09/21/2020,03/23/2020,02/09 Pneumococcal Conjugate Vacci ne, 20-valent ([id number]) 10/26/2022(Deferred: Patient Refused) Pneumococcal Polysaccharide PPV23 (Pneumovax) [...] Description 08/22/2023 8:50 AM EST Laboratory Laboratory [facility] [place] [address] [place] [phone] Neisha, Lab Scenery [address] [facility] [place] [address] 08/22/2023 10:00 AM EST Hem/Onc Treatment Hematology/Oncology Treatment, [place] [address] [place] [phone] Neisha, Chair 2 Hem Onc [facility] 200 [facility] [place] [address] 08/25/2023 9:45 AM EST Telemedicine Urology Luli Sanchez [address] [place] [address] [place] [phone] Adolfo Key MD [address] [place] [address] [place] [address] 7, Telemed [facility] Urology Ex Rm 132 [facility] [place] [address] 08/30/2023 7:40 AM EST Laboratory Laboratory [facility] [place] [address] [place] [phone] Neisha, Lab [address] [place] [address] 08/30/2023 8:45 AM EST Office Visit Hematology/Oncology [facility] [place] [address] [place] [phone] Teto Torrez MD [address] [place] [address] 08/30/2023 9:15 AM EST Hem/Onc Treatment Hematology/Oncology Treatment, [place] [address] [place] [phone] Neisha, Chair 4 Hem Onc [place] [address] [place] [address] 11/15/2023 11:30 AM EDT Office Visit Urology, [facility] [address] [place] [address] Adolfo Key MD [address] [place] [address] [place] [address] Scheduled Procedures Name [...] this encounter Medical Devices Implanted Type Area Underground Utility Locator Device Identifier Shelf Expiration Date Model / Serial / Lot Port Implant W/8f Poly Cath - [id number] Implanted:Qty : 1 on 12/01/2022 by Brad Cerda DO at OR [facility] Right: Chest CR BARD : PERIPHERAL VASCULAR [id number] 02/24/2024 [id number] / / [id number] System Urolift - [id number] Implanted:Qty : 6 on 05/31/2023 by Adolfo Key MD at OR [facility] [employer] 09/01/2023 [id number] / / [id number] Description:prostate documented as of this encounter Visit [...] Documents on File Type Date Recorded Patient Cow Washer Expl anation POLST 07/13/2023 4:08 PM POLST [...] Discussed due to patient's condition Care Teams Clothing Pattern Preparer Relationship Specialty Start Date End Date Ray Royal MD [address] [place] [address] [place] [address] PCP - General Family Medicine 10/22/18 documented as of this encounter
--- OUTSIDE RECORDS SUMMARY | 2023-09-20 05:48 | External Medical Summary | Summary of Care ---
Author Name Unknown Organization [facility] Address [address] [place] [address] Phone [phone] Care Team Providers Care Hammer Smith Name Role Phone Ray Royal MD Primary Care Provider [phone] Reason for Visit * Reason Comments Chemotherapy Gemzar. * Evaluate & Treat - Unlimited Visits (Within 30 days (routine)) - Authorized Specialty Diagnoses / Procedures Referred By Mike veláqzuez Referred To Contact Hematology Oncology Diagnoses Gallbladder cancer (HCC) Procedures Eval/Treat Anabell Driver PA-C [address] [place] [address] Referral ID Status Reason Start Date Expiration Date Visits Requested Visits Authorized [id number] Authorized Specialty Services Required 12/01/2022 12/06/[phone] Encounter Details Date Type Department Care Team (Latest Contact Info) Description 07/25/2023 1:30 PM EST Hem/Onc Treatment Hematology/Oncolog y Treatment, [address] [phone] Neisha, Chair 5 Hem On[address] [address] Adenocarcinoma of pancreas (HCC)*; Encounter for antineoplastic [...] mRNA, LNP-s, No Pre serve, 2-Dose Series ([employer]) 02/23/2021,02/02/2021 HEP A - Hepatitis A (Adult > 18 yrs) 09/21/2020, 02/10/2020 Hepatitis B, 20+ yrs 09/21/2020,03/23/2020,02/09 Pneumococcal Conjugate Vacci ne, 20-valent (Sdqavur19) 10/26/2022(Deferred: Patient Refused) Pneumococcal Polysaccharide PPV23 (Pneumovax) [...] procedure well. Discharged in stable condition. * Jjuu Hall RN - 07/25/2023 2:08 PM EST [...] Description 08/22/2023 8:50 AM EST Laboratory Laboratory [facility] [place] [place] [address] [place] [phone] Neisha, Lab Scenery [address] [place] [address] 08/22/2023 10:00 AM EST Hem/Onc Treatment Hematology/Oncology Treatment, [place] [address] [place] [phone] Neisha, Chair 2 Hem Onc [address] [place] [address] 08/25/2023 9:45 AM EST Telemedicine Urology Luli Sanchez [address] [place] [address] [place] [address] Adolfo Key MD [address] [place] [address] [place] [phone] 7, Telemed [facility] Urology Ex Rm 132 [facility] [place] [address] 08/30/2023 7:40 AM EST Laboratory Laboratory [facility] [address] [place] [phone] Neisha, Lab [facility] 200 [facility] [place] [address] 08/30/2023 8:45 AM EST Office Visit Hematology/Oncology [facility] [address] [place] [phone] Teto Torrez MD 200 [facility] [place] [address] 08/30/2023 9:15 AM EST [facility] [address] [place], [place] [address] Neisha, Chair 4 Hem Onc [address] [place], [place] [address] 11/15/2023 11:30 AM EDT Office Visit [facility], [facility] [address] Adolfo Key MD [address] [place] [address] [place] [address] Scheduled Procedures Name Priority Associated Diagnoses Date/Ti [...] this encounter Medical Devices Implanted Type Area Self Propelled Mining Machine Operator Device Identifier Shelf Expiration Date Model / Serial / Lot Port Implant W/8f Poly Cath - [id number] Implanted:Qty : 1 on 12/01/2022 by Brad Cerda DO at OR [facility] Right: Chest CR BARD : PERIPHERAL VASCULAR [id number] 02/24/2024 [id number] / / [id number] System Urolift - [id number] Implanted:Qty : 6 on 05/31/2023 by Adolfo Key MD at OR [facility] [employer] 09/01/2023 XY364-8 / / [id number] Description:prostate documented as of this encounter Visit [...] Documents on File Type Date Recorded Patient Continuous Improvement Engineer Expl anation POLST 07/13/2023 4:08 PM [...] Discussed due to patient's condition Care Teams Hammer Smith Relationship Specialty Start Date End Date Ray Royal MD [address] [place] [address] [place] [address] PCP - General Family Medicine 10/22/18 documented as of this encounter
--- OUTSIDE RECORDS SUMMARY | 2023-09-20 05:48 | External Medical Summary | Summary of Care ---
Author Name Unknown Organization [facility] Address [address] [place] [address] Phone [phone] Care Team Providers Care Bilingual Customer Service Specialist Name Role Phone Ray Royal MD Primary Care Provider + [phone] Reason for Visit * Reason Comments Chemotherapy C1/D1 - Gemzar * Evaluate & Treat - Unlimited Visits (Within 30 days (routine)) - Authorized Specialty Diagnoses / Procedures Referred By Mike velázquez Referred To Contact Hematology Oncology Diagnoses Gallbladder cancer (HCC) Procedures Eval/Treat Anabell Driver PA-C [address] [place] [address] Referral ID Status Reason Start Date Expiration Date Visits Requested Visits Authorized [id number] Authorized Specialty Services Required 12/01/2022 12/06/[phone] Encounter Details Date Type Department Care Team (Latest Contact Info) Description 07/18/2023 9:45 AM EST Hem/Onc Treatment Hematology/Oncolog y Treatment, [address] [phone] Neisha, Chair 10 Hem On[address] [address] Adenocarcinoma of pancreas (HCC)*; Encounter for antineoplastic [...] mRNA, LNP-s, No Pre serve, 2-Dose Series ([employer]) 02/23/2021,02/02/2021 HEP A - Hepatitis A (Adult > 18 yrs) 09/21/2020, 02/10/2020 Hepatitis B, 20+ yrs 09/21/2020,03/23/2020,02/09 Pneumococcal Conjugate Vacci ne, 20-valent ([id number]) 10/26/2022(Deferred: Patient Refused) Pneumococcal Polysaccharide PPV23 (Pneumovax) [...] Description 08/22/2023 8:50 AM EST Laboratory Laboratory [facility] [place] [address] [place] [phone] Neisha, Lab [address] [facility] [place] [address] 08/22/2023 10:00 AM EST Hem/Onc Treatment Hematology/Oncology Treatment, [place] [address] [place] [phone] Neisha, Chair 2 Hem Onc [facility] 200 [facility] [place] [address] 08/25/2023 9:45 AM EST Telemedicine Urology Luli Sanchez [address] [place] [address] [place] [phone] Adolfo Key MD [address] [place] [address] [place] [address] 7, Telemed [facility] Urology Ex Rm 132 [place] [address] 08/30/2023 7:40 AM EST Laboratory Laboratory [facility] [place] [address] [place] [phone] Neisha, Lab [address] [place] [address] 08/30/2023 8:45 AM EST Office Visit Hematology/Oncology [facility] [place] [address] [place] [phone] Teto Torrez MD [address] [place] [address] 08/30/2023 9:15 AM EST Hem/Onc Treatment Hematology/Oncology Treatment, [place] [address] [place] [phone] Neisha, Chair 4 Hem Onc [place] [address] [place] [address] 11/15/2023 11:30 AM EDT Office Visit Urology, [facility] [address] [place] [address] Adolfo Key MD [address] [place] [...] this encounter Medical Devices Implanted Type Area Oil Derrick Operator Device Identifier Shelf Expiration Date Model / Serial / Lot Port Implant W/8f Poly Cath - [id number] Implanted:Qty : 1 on 12/01/2022 by Brad Cerda DO at OR [facility] Right: Chest CR BARD : PERIPHERAL VASCULAR [id number] 02/24/2024 [id number] / / [id number] System Urolift - [id number] Implanted:Qty : 6 on 05/31/2023 by Adolfo Key MD at OR [facility] [employer] 09/01/2023 VQ816-2 / / [id number] Description:prostate documented as of this encounter Visit [...] Documents on File Type Date Recorded Patient Supervisor Finishing Department Expl anation POLST 07/13/2023 4:08 PM POLST [...] Discussed due to patient's condition Care Teams Bilingual Customer Service Specialist Relationship Specialty Start Date End Date Ray Royal MD [address] [place] [address] [place] [address] PCP - General Family Medicine 10/22/18 documented as of this encounter
--- OUTSIDE RECORDS SUMMARY | 2023-09-20 05:48 | External Medical Summary | Summary of Care ---
Author Name Unknown Organization [facility] Address [address] [place] [address] Phone [phone] Care Team Providers Care Career Development Coordinator Name Role Phone Ray Royal MD Primary Care Provider [phone] Reason for Visit * Reason Comments Chemotherapy Gemzar. * Evaluate & Treat - Unlimited Visits (Within 30 days (routine)) - Authorized Specialty Diagnoses / Procedures Referred By Mike velázquez Referred To Contact Hematology Oncology Diagnoses Gallbladder cancer (HCC) Procedures Eval/Treat Anabell Driver PA-C [address] [place] [address] [address] Referral ID Status Reason Start Date Expiration Date Visits Requested Visits Authorized [id number] Authorized Specialty Services Required 12/01/2022 12/06/[phone] Encounter Details Date Type Department Care Team (Latest Contact Info) Description 07/25/2023 1:30 PM EST Hem/Onc Treatment Hematology/Oncolog y Treatment, [address] [address] Neisha, Chair 5 Hem On[address] [address] Adenocarcinoma of pancreas (HCC)*; Encounter for antineoplastic [...] mRNA, LNP-s, No Pre serve, 2-Dose Series ([employer]) 02/23/2021,02/02/2021 HEP A - Hepatitis A (Adult > 18 yrs) 09/21/2020, 02/10/2020 Hepatitis B, 20+ yrs 09/21/2020,03/23/2020,02/09 Pneumococcal Conjugate Vacci ne, 20-valent (Mboqyos89) 10/26/2022(Deferred: Patient Refused) Pneumococcal Polysaccharide PPV23 (Pneumovax) [...] Description 08/22/2023 8:50 AM EST Laboratory Laboratory [facility] [place] [address] [place] [phone] Neisha, Lab [address] [place] [address] 08/22/2023 10:00 AM EST Hem/Onc Treatment Hematology/Oncology Treatment, [place] [address] [place] [phone] Neisha, Chair 2 Hem Onc [address] [place] [address] 08/25/2023 9:45 AM EST Telemedicine Urology [place] [address] [place] [address] [place] [address] Adolfo Key MD [address] [place] [address] [place] [phone] 7, Telemed [facility] Urology Ex Rm 132 [facility] [place] [address] 08/30/2023 7:40 AM EST Laboratory Laboratory [facility] [address] [place] [phone] Neisha, Lab [address] [place], [place] [address] 08/30/2023 8:45 AM EST Office Visit Hematology/Oncology [address] [place], [place] [phone] Teto Torrez MD 200 [facility] [place], [place] [address] 08/30/2023 9:15 AM EST Hem/Onc Treatment Hematology/Oncology [facility] 200 [facility], [place] [phone] Neisha, Chair 4 Hem Onc [address] [place], [place] [address] 09/06/2023 3:00 PM EDT Office Visit Palliative Medicine [facility] 200 [facility], [place] [phone] Shante Prado MD [facility] [place] [address] 11/15/2023 11:30 AM EDT Office Visit Urology, [facility] [place] [address] Adolfo Key MD [address] [place] [address] Scheduled Procedures [...] this encounter Medical Devices Implanted Type Area Building Maintenance Engineer Device Identifier Shelf Expiration Date Model / Serial / Lot Port Implant W/8f Poly Cath - [id number] Implanted:Qty : 1 on 12/01/2022 by Brad Cerda DO at OR [facility] Right: Chest CR BARD : PERIPHERAL VASCULAR [id number] 02/24/2024 [id number] / / [id number] System Urolift - [id number] Implanted:Qty : 6 on 05/31/2023 by Adolfo Key MD at OR [facility] [employer] 09/01/2023 VG079-0 / / [id number] Description:prostate documented as of this encounter Visit [...] Documents on File Type Date Recorded Patient Trust Officer Expl anation POLST 07/13/2023 4:08 PM POLST [...] Discussed due to patient's condition Care Teams Career Development Coordinator Relationship Specialty Start Date End Date Ray Royal MD [address] [place] [address] [place] [address] PCP - General Family Medicine 10/22/18 documented as of this encounter
--- OUTSIDE RECORDS SUMMARY | 2023-09-20 05:48 | External Medical Summary | Summary of Care ---
Author Name Unknown Organization [facility] Address [address] [place] [address] Phone [phone] Care Team Providers Care Finisher Map And Chart Name Role Phone Ray Royal MD Primary Care Provider + [phone] Reason for Visit * Reason Comments Chemotherapy C1/D1 - Gemzar * Evaluate & Treat - Unlimited Visits (Within 30 days (routine)) - Authorized Specialty Diagnoses / Procedures Referred By Mike velázquez Referred To Contact Hematology Oncology Diagnoses Gallbladder cancer (HCC) Procedures Eval/Treat Anabell Driver PA-C [address] [place] [address] Referral ID Status Reason Start Date Expiration Date Visits Requested Visits Authorized [id number] Authorized Specialty Services Required 12/01/2022 12/06/[phone] Encounter Details Date Type Department Care Team (Latest Contact Info) Description 07/18/2023 9:45 AM EST Hem/Onc Treatment Hematology/Oncolog y Treatment, [address] [phone] Neisha, Chair 10 Hem On[address] [address] Adenocarcinoma of pancreas (HCC)*; Encounter for antineoplastic [...] mRNA, LNP-s, No Pre serve, 2-Dose Series ([employer]) 02/23/2021,02/02/2021 HEP A - Hepatitis A (Adult > 18 yrs) 09/21/2020, 02/10/2020 Hepatitis B, 20+ yrs 09/21/2020,03/23/2020,02/09 Pneumococcal Conjugate Vacci ne, 20-valent ([id number]) 10/26/2022(Deferred: Patient Refused) Pneumococcal Polysaccharide PPV23 (Pneumovax) [...] Description 08/22/2023 8:50 AM EST Laboratory Laboratory [facility] [place] [address] [place] [phone] Neisha, Lab [address] [facility] [place] [address] 08/22/2023 10:00 AM EST Hem/Onc Treatment Hematology/Oncology Treatment, [place] [address] [place] [phone] Neisha, Chair 2 Hem Onc [facility] 200 [facility] [place] [address] 08/25/2023 9:45 AM EST Telemedicine Urology Luli Sanchez [address] [place] [address] [place] [phone] Adolfo Key MD [address] [place] [address] [place] [address] 7, Telemed [facility] Urology Ex Rm 132 [facility] [place] [address] 08/30/2023 7:40 AM EST Laboratory Laboratory [facility] [place] [address] [place] [phone] Neisha, Lab [address] [place] [address] 08/30/2023 8:45 AM EST Office Visit Hematology/Oncology [facility] [place] [address] [place] [phone] Teto Torrez MD [address] [place] [address] 08/30/2023 9:15 AM EST Hem/Onc Treatment Hematology/Oncology Treatment, [place] [address] [place] [phone] Neisha, Chair 4 Hem Onc [place] [address] [place] [address] 11/15/2023 11:30 AM EDT Office Visit Urology, [facility] [address] [place] [address] Adolfo Key MD [address] [place] [...] this encounter Medical Devices Implanted Type Area Accounting Bookkeeper Device Identifier Shelf Expiration Date Model / Serial / Lot Port Implant W/8f Poly Cath - [id number] Implanted:Qty : 1 on 12/01/2022 by Brad Cerda DO at OR [facility] Right: Chest CR BARD : PERIPHERAL VASCULAR [id number] 02/24/2024 [id number] / / [id number] System Urolift - [id number] Implanted:Qty : 6 on 05/31/2023 by Adolfo Key MD at OR [facility] [employer] 09/01/2023 [id number] / / [id number] Description:prostate documented as of this encounter Visit [...] on File Type Date Recorded Patient Supervisor Pole Yard Expl anation POLST 07/13/2023 4:08 PM POLST [...] Discussed due to patient's condition Care Teams Finisher Map And Chart Relationship Specialty Start Date End Date Ray Royal MD [address] [place] [address] [place] [address] PCP - General Family Medicine 10/22/18 documented as of this encounter
--- OUTSIDE RECORDS SUMMARY | 2023-09-20 05:48 | External Medical Summary | Summary of Care ---
Author Name Unknown Organization [facility] Address [address] [place] [address] Phone [phone] Care Team Providers Care Supervisor Color Paste Mixing Name Role Phone Ray Royal MD Primary Care Provider [phone] Reason for Visit * Reason Comments Chemotherapy Gemzar. * Evaluate & Treat - Unlimited Visits (Within 30 days (routine)) - Authorized Specialty Diagnoses / Procedures Referred By Mike velázquez Referred To Contact Hematology Oncology Diagnoses Gallbladder cancer (HCC) Procedures Eval/Treat Anabell Driver PA-C [address] [place] [address] [address] Referral ID Status Reason Start Date Expiration Date Visits Requested Visits Authorized [id number] Authorized Specialty Services Required 12/01/2022 12/06/[phone] Encounter Details Date Type Department Care Team (Latest Contact Info) Description 07/25/2023 1:30 PM EST Hem/Onc Treatment Hematology/Oncolog y Treatment, [address] [phone] Neisha, Chair 5 Hem On[address] [address] Adenocarcinoma of pancreas (HCC)*; Encounter for antineoplastic [...] mRNA, LNP-s, No Pre serve, 2-Dose Series ([employer]) 02/23/2021,02/02/2021 HEP A - Hepatitis A (Adult > 18 yrs) 09/21/2020, 02/10/2020 Hepatitis B, 20+ yrs 09/21/2020,03/23/2020,02/09 Pneumococcal Conjugate Vacci ne, 20-valent ([id number]) 10/26/2022(Deferred: Patient Refused) Pneumococcal Polysaccharide PPV23 (Pneumovax) [...] Description 08/22/2023 8:50 AM EST Laboratory [facility] [place] [address] [place] [phone] Neisha, Lab [address] [place] [address] 08/22/2023 10:00 AM EST Hem/Onc Treatment Hematology/Oncology Treatment, [place] [address] [place] [phone] Neisha, Chair 2 Hem Onc [address] [place] [address] 08/25/2023 9:45 AM EST Telemedicine Urology Luli Sanchez [address] [place] [address] [place] [address] Adolfo Key MD [address] [place] [address] [place] [phone] 7, Telemed [facility] Urology Ex Rm 132 [facility] [place] [address] 08/30/2023 7:40 AM EST Laboratory Laboratory [facility] [address] [place] [phone] Neisha, Lab [facility] 200 [facility] [place] [address] 08/30/2023 8:45 AM EST Office Visit Hematology/Oncology [facility] [address] [place] [phone] Teto Torrez MD 200 [facility] [place] [address] 08/30/2023 9:15 AM EST Hem[facility] [address] [place], [place] [phone] Neisha, Chair 4 Hem Onc [address] [place], [place] [address] 11/15/2023 11:30 AM EDT Office Visit Urology, [facility] [address] Adolfo Key MD [address] [place] [address] [place] [address] Scheduled Procedures Name Priority Associated Diagnoses Date/Ti [...] this encounter Medical Devices Implanted Type Area Day Spa Manager Device Identifier Shelf Expiration Date Model / Serial / Lot Port Implant W/8f Poly Cath - [id number] Implanted:Qty : 1 on 12/01/2022 by Brad Cerda DO at OR [facility] Right: Chest CR BARD : PERIPHERAL VASCULAR [id number] 02/24/2024 [id number] / / [id number] System Urolift - [id number] Implanted:Qty : 6 on 05/31/2023 by Adolfo Key MD at OR [facility] [employer] 09/01/2023 VD915-5 / / [id number] Description:prostate documented as of this encounter Visit [...] Documents on File Type Date Recorded Patient Ehs Manager Expl anation POLST 07/13/2023 4:08 PM [...] Discussed due to patient's condition Care Teams Supervisor Color Paste Mixing Relationship Specialty Start Date End Date Ray Royal MD [address] [place] [address] [place] [address] PCP - General Family Medicine 10/22/18 documented as of this encounter
--- OUTSIDE RECORDS SUMMARY | 2023-09-20 05:49 | External Medical Summary ---
Author Name Unknown Address Unknown Organization K09:[facility] [place] [address] Laboratory Report Ordering Provider Test Date Status TJ SMITH 08/15/2023 10:50:09 Final Observation Date Value Abnormality Reference (Units ) Status BUN 08/15/2023 10:50:09 17 6-20 (mg/dL) Final Creatinine 08/15/2023 10:50:09 1.2 0.6-1.2 (mg/dL) Final Glomerular filtration rate/1.73 sq M.predicted [Volume Rate/Area] in Serum, Plasma or Blood by Creatinine-based formula (CKD-EPI) 08/15/2023 10:50:09 72 >=60 (mL/min) Final eGFR is calculated based on the CKD-EPI 2020 equation SODIUM 08/15/2023 10:50:09 139 135-146 (m mol/L) Final Potassium 08/15/2023 10:50:09 4.0 3.5-5.1 (m mol/L) Final Cl 08/15/2023 10:50:09 104 98-107 (mm ol/L) Final CO2 08/15/2023 10:50:09 21 Below low normal 22- 32 (mmol/L) Final Anion gap 08/15/2023 10:50:09 14 7-15 (mmol /L) Final Glucose 08/15/2023 10:50:09 197 Above high normal 70 -120 (mg/dL) Final Albumin 08/15/2023 10:50:09 3.2 Below low normal 3.8 -5.0 (g/dL) Final AST (Aspartate aminotransferase) 08/15/2023 10:50:09 55 Above high normal 10-50 (U/L) Final Alk Phos 08/15/2023 10:50:09 175 Above high normal 35 -130 (U/L) Final Bilirubin, Total 08/15/2023 10:50:09 0.5 <=1 .2 (mg/dL) Final Calcium 08/15/2023 10:50:09 9.3 8.4-10.2 ( mg/dL) Final Protein 08/15/2023 10:50:09 6.1 6.0-8.3 (g /dL) Final ALT (Alanine aminotransferase) 08/15/2023 10:50:09 28 10-50 (U/L) Darien harris Performing Location [facility] [address] [place] [address]
--- OUTSIDE RECORDS SUMMARY | 2023-09-20 05:49 | External Medical Summary | Summary of Care ---
Author Name Unknown Organization [facility] Address [address] [place] [address] Phone [phone] Care Team Providers Care Patient Resource Specialist Name Role Phone Ray Royal MD Primary Care Provider + [phone] Reason for Visit * Reason Comments Outpatient Testing Encounter Details Date Type Department Care Team (Late st Contact Info) Description 08/15/2023 10:20 AM EST Laboratory Laboratory [facility] [address] [place] [phone] [facility] [address] [place] [address] Adenocarcinoma of pancreas (HCC); Metastasis to liver (HCC) Allergies No known active allergiesdocumented as of this encounter (statuses as of 08/15/2023) Medications Medication Sig Dispensed Refills Start Date [...] as of this encounter (statuses as of 08/15/2023) Active Problems Problem Noted Date Diagnosed Date Dehydration 08/09/2023 Food insecurity 06/05/2023 Overview: Per [facility] Protocol Urethral stricture 04/03/2023 Slow urinary [...] as of this encounter (statuses as of 08/15/2023) Immunizations Name Administration Dates Next Due COVID-19 mRNA, LNP-s, No Pre serve, 2-Dose Series ([employer]) 02/23/2021,02/02/2021 HEP A - Hepatitis A (Adult > 18 yrs) 09/21/2020, 02/10/2020 Hepatitis B, 20+ yrs 09/21/2020,03/23/2020,02/09 Pneumococcal Conjugate Vacci ne, 20-valent ([id number]) 10/26/2022(Deferred: Patient Refused) Pneumococcal Polysaccharide PPV23 (Pneumovax) [...] Care Team (Late st Contact Info) Description 08/15/2023 11:15 AM EST Hem/Onc Treatment Hematology/Oncology Treatment, [place] [address] [place] [phone] Neisha, Chair 4 Hem Onc [place] [address] [place] [address] Arrived 08/16/2023 10:45 AM EST Office Visit Orthopaedics [facility] [address] [place] [address] Judy Clay MD [address] [place] [address] 08/25/2023 9:45 AM EST Telemedicine Urology Luli Sanchez [address] [place] [address] [place] [address] Adolfo Key MD [address] [place] [address] [place] [address] 7, Telemed [facility] Urology Ex [address] [place] [address] 08/29/2023 10:00 AM EST Laboratory Laboratory, [facility] [address] [place] [phone] CardozaPatricio khan [facility] [address] 08/30/2023 8:45 AM EST Office Visit Hematology/Oncology [facility] [address] [place] [phone] Teto Torrez MD [address] [place] [address] 08/30/2023 9:15 AM EST Hem/Onc Treatment Hematology/Oncology Treatment, [place] [address] [place], [place] [phone] Neisha, Chair 4 Hem Onc [facility] 200 [facility] [place] [address] 11/15/2023 11:30 AM EDT [facility] 132 [facility] [place] [address] Adolfo Key MD [address] [place] [address] [place] [address] Pending Results Name Type Priority Associated Diagnoses Date /Time CBC WITH WBC DIFFERENTIAL Lab STAT Adenocarcinoma of pancreas (HCC) Metastasis to liver (HCC) 08/15/2023 10:50 AM EST COMPREHENSIVE METABOLIC PANEL Lab STAT Adenocarcinoma of pancreas (HCC) Metastasis to liver (HCC) 08/15/2023 10:50 AM EST CBC Lab STAT Adenocarcinoma of pancreas (HCC) Metastasis to liver (HCC) 08/15/2023 10:50 AM EST DIFFERENTIAL, AUTOMATED Lab STAT Adenocarcinoma of pancreas (HCC) Metastasis to liver (HCC) 08/15/2023 10:50 AM EST Scheduled Procedures Name Priority Associated [...] of 2 - PCV) 05/10/2022 05/10/2021 GFR 08/08/2024 08/08/2023, 06/28, 07/17/2023, Additional history exists Albumin/Creatinine Ratio 09/14/2025 023, 09/07/2021, 10/22/2018 Diabetes Screening 08/08/2026 08/08/2023, 0 07/25/2023, 07/17/2023, Additional history exists Lipid Panel 11/25/2027 11/24/2022, [...] encounter Medical Devices Implanted Type Area Road Machinery Inspector Device Identifier Shelf Expiration Date Model / Serial / Lot Port Implant W/8f Poly Cath - [id number] Implanted:Qty : 1 on 12/01/2022 by Brad Cerda, at OR [facility] Right: Chest CR BARD : PERIPHERAL VASCULAR [id number] 02/24/2024 [id number] / / [id number] System Urolift - [id number] Implanted:Qty : 6 on 05/31/2023 by Adolfo Key MD at OR [facility] [employer] 09/01/2023 [id number] / / [id number] Description:prostate documented as of this encounter Visit Diagnoses Diagnosis Adenocarcinoma of pancreas (HCC) Malignant neoplasm of pancreas, part unspecified Metastasis to liver (HCC) Secondary malignant neoplasm of liver documented in this encounter Advance Directives Documents on File Type Date Recorded Patient Brim Molder Expl anation POLST 07/13/2023 4:08 PM POLST [...] Discussed due to patient's condition Care Teams Patient Resource Specialist Relationship Specialty Start Date End Date Ray Royal MD [address] [place] [address] [place] [address] PCP - General Family Medicine 10/22/18 documented as of this encounter
--- OUTSIDE RECORDS SUMMARY | 2023-09-20 05:49 | External Medical Summary ---
Author Name Unknown Address Unknown Organization K09:[facility] [place] [address] Laboratory Report Ordering Provider Test Date Status TJ SMITH 08/15/2023 10:50:09 Final Observation Date Value Abnormality Reference (Units ) Status WBC, Total 08/15/2023 10:50:09 3.66 Below low normal 4. 00-10.80 (K/uL) Final RBC 08/15/2023 10:50:09 3.04 4.50-5.25 (M/uL) Final Hemoglobin 08/15/2023 10:50:09 9.6 Below low normal 14 .0-16.8 (g/dL) Final HCT 08/15/2023 10:50:09 31.2 Below low normal 40. 0-48.4 (%) Final MCV 08/15/2023 10:50:09 102.6 82.0-99.5 (fL) Final MCH 08/15/2023 10:50:09 31.6 27.0-34.0 (pg) Final MCHC 08/15/2023 10:50:09 30.8 32.0-36.0 (g/dL) Final RDW 08/15/2023 10:50:09 16.3 11.5-15.5 (%) Final Platelets 08/15/2023 10:50:09 133 Below low normal 140 -400 (K/uL) Final MPV 08/15/2023 10:50:09 9.4 6.6-11.1 ( fL) Final Performing Location [facility] [place] [address]
--- OUTSIDE RECORDS SUMMARY | 2023-09-20 05:49 | External Medical Summary | Summary of Care ---
Author Name Unknown Organization [facility] Address [address] [place] [address] Phone [phone] Care Team Providers Care Ceramic Restorer Name Role Phone Ray Royal MD Primary Care Provider + [phone] Reason for Visit * Reason Comments Chemotherapy C1/D1 - Gemzar * Evaluate & Treat - Unlimited Visits (Within 30 days (routine)) - Authorized Specialty Diagnoses / Procedures Referred By Mike velázquez Referred To Contact Hematology Oncology Diagnoses Gallbladder cancer (HCC) Procedures Eval/Treat Anabell Driver PA-C [address] [place] [address] Referral ID Status Reason Start Date Expiration Date Visits Requested Visits Authorized [id number] Authorized Specialty Services Required 12/01/2022 12/06/[phone] Encounter Details Date Type Department Care Team (Latest Contact Info) Description 07/18/2023 9:45 AM EST Hem/Onc Treatment Hematology/Oncolog y Treatment, [address] [phone] Neisha, Chair [address] [address] Adenocarcinoma of pancreas (HCC)*; Encounter for antineoplastic [...] mRNA, LNP-s, No Pre serve, 2-Dose Series ([employer]) 02/23/2021,02/02/2021 HEP A - Hepatitis A (Adult > 18 yrs) 09/21/2020, 02/10/2020 Hepatitis B, 20+ yrs 09/21/2020,03/23/2020,02/09 Pneumococcal Conjugate Vacci ne, 20-valent ([id number]) 10/26/2022(Deferred: Patient Refused) Pneumococcal Polysaccharide PPV23 (Pneumovax) [...] Description 08/22/2023 8:50 AM EST Laboratory Laboratory [facility] [place] [address] [place] [phone] Neisha, Lab [address] [facility] [place] [address] 08/22/2023 10:00 AM EST Hem/Onc Treatment Hematology/Oncology Treatment, [place] [address] [place] [phone] Neisha, Chair 2 Hem Onc [facility] 200 [facility] [place] [address] 08/25/2023 9:45 AM EST Telemedicine Urology Luli Sanchez [address] [place] [address] [place] [phone] Adolfo Key MD [address] [place] [address] [place] [address] 7, Telemed [facility] Urology Ex Rm 132 [place] [address] 08/30/2023 7:40 AM EST Laboratory Laboratory [facility] [place] [address] [place] [phone] Neisha, Lab [address] [place] [address] 08/30/2023 8:45 AM EST Office Visit Hematology/Oncology [facility] [place] [address] [place] [phone] Teto Torrez MD [address] [place] [address] 08/30/2023 9:15 AM EST Hem/Onc Treatment Hematology/Oncology Treatment, [place] [address] [place] [phone] Neisha, Chair 4 Hem Onc [place] [address] [place] [address] 11/15/2023 11:30 AM EDT Office Visit Urology, [facility] [address] [place] [address] Adolfo Key MD [address] [place] [...] this encounter Medical Devices Implanted Type Area Electrical And Electronic Assembler Device Identifier Shelf Expiration Date Model / Serial / Lot Port Implant W/8f Poly Cath - [id number] Implanted:Qty : 1 on 12/01/2022 by Brad Cerda DO at OR [facility] Right: Chest CR BARD : PERIPHERAL VASCULAR [id number] 02/24/2024 [id number] / / [id number] System Urolift - [id number] Implanted:Qty : 6 on 05/31/2023 by Adolfo Key MD at OR [facility] [employer] 09/01/2023 [id number] / / [id number] Description:prostate documented as of this encounter Visit [...] Documents on File Type Date Recorded Patient Media Associate Expl anation POLST 07/13/2023 4:08 PM POLST [...] Discussed due to patient's condition Care Teams Ceramic Restorer Relationship Specialty Start Date End Date Ray Royal MD [address] [place] [address] [place] [address] PCP - General Family Medicine 10/22/18 documented as of this encounter
--- OUTSIDE RECORDS SUMMARY | 2023-09-20 05:49 | External Medical Summary | Summary of Care ---
Author Name Unknown Organization [facility] Address [address] [place] [address] Phone [phone] Care Team Providers Care Associate Professor Of Engineering Name Role Phone Ray Royal MD Primary Care Provider + [phone] Reason for Visit * Reason Comments Outpatient Testing Encounter Details Date Type Department Care Team (Late st Contact Info) Description 08/15/2023 10:20 AM EST Laboratory Laboratory [facility] [address] [place] [phone] [facility] [address] [place] [address] Adenocarcinoma of pancreas (HCC); Metastasis to liver [...] Dehydration 08/09/2023 Food insecurity 06/05/2023 Overview: Per [facility] Protocol Urethral stricture 04/03/2023 Slow urinary [...] mRNA, LNP-s, No Pre serve, 2-Dose Series ([employer]) 02/23/2021,02/02/2021 HEP A - Hepatitis A (Adult > 18 yrs) 09/21/2020, 02/10/2020 Hepatitis B, 20+ yrs 09/21/2020,03/23/2020,02/09 Pneumococcal Conjugate Vacci ne, 20-valent ([id number]) 10/26/2022(Deferred: Patient Refused) Pneumococcal Polysaccharide PPV23 (Pneumovax) [...] 11:15 AM EST Hem/Onc Treatment Hematology/Oncology Treatment, [place] [address] [place] [phone] Neisha, Chair 4 Hem Onc [place] [address] [place] [address] Arrived 08/16/2023 10:45 AM EST Office Visit Orthopaedics [facility] [address] [place] [address] [address] Judy Clay MD [address] [place] [address] 08/25/2023 9:45 AM EST Telemedicine Urology Luli Sanchez [address] [place] [address] [place] [address] Adolfo Key MD [address] [place] [address] [place] [address] 7, Telemed [facility] Urology Ex [address] [place] [address] 08/29/2023 10:00 AM EST Laboratory Laboratory, [facility] [address] [place] [phone] CardozaPatricio khan [facility] 132 [facility] [address] 08/30/2023 8:45 AM EST Office Visit Hematology/Oncology [facility] [address] [place] [phone] Teto Torrez MD [address] [place] [address] 08/30/2023 9:15 AM EST Hem/Onc Treatment Hematology/Oncology Treatment, [place] [address] [place], [place] [phone] Neisha, Chair 4 Hem Onc [facility] 200 [facility] [place] [address] 11/15/2023 11:30 AM EDT [facility] 132 [facility] [place] [address] Adolfo Key MD [address] [place] [address] [place] [address] Pending Results Name Type Priority [...] this encounter Medical Devices Implanted Type Area Filling And Packing Supervisor Device Identifier Shelf Expiration Date Model / Serial / Lot Port Implant W/8f Poly Cath - [id number] Implanted:Qty : 1 on 12/01/2022 by Brad Cerda, at OR [facility] Right: Chest CR BARD : PERIPHERAL VASCULAR [id number] 02/24/2024 [id number] / / [id number] System Urolift - [id number] Implanted:Qty : 6 on 05/31/2023 by Adolfo Key MD at OR [facility] [employer] 09/01/2023 [id number] / / [id number] Description:prostate documented as of this encounter Visit Diagnoses Diagnosis Adenocarcinoma of pancreas (HCC) Malignant neoplasm of pancreas, part unspecified Metastasis to liver (HCC) Secondary malignant neoplasm of liver documented in this encounter Advance Directives Documents on File Type Date Recorded Patient Auto Rental Clerk Expl anation POLST 07/13/2023 4:08 PM POLST [...] Discussed due to patient's condition Care Teams Associate Professor Of Engineering Relationship Specialty Start Date End Date Ray Royal MD [address] [place] [address] [place] [address] PCP - General Family Medicine 10/22/18 documented as of this encounter
--- OUTSIDE RECORDS SUMMARY | 2023-09-20 05:49 | External Medical Summary ---
Author Name Unknown Address Unknown Organization K09:[facility] [place] [address] Laboratory Report Ordering Provider Test Date Status TJ SMITH 08/15/2023 10:50:09 Final Observation Date Value Abnormality Reference (Units ) Status Nucleated erythrocytes/100 leukocytes [Ratio] in Blood by Automated count 08/15/2023 10:50:09 Final Acanthocytes [Presence] in Blood by Light microscopy 08/15/2023 10:50:09 Moderate Abnormal None Seen Final Performing Location [facility] [place] [address]
--- OUTSIDE RECORDS SUMMARY | 2023-09-20 05:49 | External Medical Summary ---
Author Name Unknown Address Unknown Organization K09:[facility] [place] [address] Laboratory Report Ordering Provider Test Date Status TJ SMITH 08/15/2023 10:50:09 Final Observation Date Value Abnormality Reference (Units ) Status SYNC LEUKOCYTES IN BLOOD BY AUTOMATED COUNT 08/15/2023 10:50:09 3.66 Below low normal 4.00-10.80 (K/uL) Final Segs 08/15/2023 10:50:09 69.6 40.0-75.0 (%) Final Lymphs % 08/15/2023 10:50:09 15.6 Below low normal 18.0-42.0 (%) Final Monos 08/15/2023 10:50:09 13.7 Above high normal 1.0-11.0 (%) Final Eosinophils 08/15/2023 10:50:09 0.8 0.0-6.0 (%) Final Basos 08/15/2023 10:50:09 0.3 0.0-2.0 (%) Final Absolute Segs 08/15/2023 10:50:09 2.55 1.80-7.70 (K/uL) Final Lymphs, absolute 08/15/2023 10:50:09 0.57 Below low normal 1.00-4.80 (K/ul) Final Monos, Abs 08/15/2023 10:50:09 0.50 0.00-1.10 (K/uL) Final Eos, Abs 08/15/2023 10:50:09 0.03 0.00-0.70 (K/uL) Final Basos, Abs 08/15/2023 10:50:09 0.01 0.00-0.20 (K/uL) Final Performing Location [facility] [place] [address]
--- OUTSIDE RECORDS SUMMARY | 2023-09-20 05:49 | External Medical Summary | Summary of Care ---
Author Name Unknown Organization [facility] Address [address] [place] [address] Phone [phone] Care Team Providers Care Analyst Market Intelligence Name Role Phone Ray Royal MD Primary Care Provider [phone] Reason for Visit * Reason Comments Chemotherapy C2D8 gemzar, being h eld d/t patient not feeling well. IV Therapy Hydration. * Evaluate & Treat - Unlimited Visits (Within 30 days (routine)) - Authorized Specialty Diagnoses / Procedures Referred By Mike velázquez Referred To Contact Hematology Oncology Diagnoses Gallbladder cancer (HCC) Procedures Eval/Treat Anabell Driver PA-C [address] [place] [address] Referral ID Status Reason Start Date Expiration Date Visits Requested Visits Authorized [id number] Authorized Specialty Services Required 12/01/2022 12/06/[phone] Encounter Details Date Type Department Care Team (Latest Contact Info) Description 08/15/2023 11:15 AM EST Hem/Onc Treatment Hematology/Oncology Treatment, [address] [place] [phone] Neisha, Chair 4 Hem [address] [place] [address] Dehydration*; Adenocarcinoma of pancreas (HCC); Metastasis to [...] mRNA, LNP-s, No Pre serve, 2-Dose Series ([employer]) 02/23/2021,02/02/2021 HEP A - Hepatitis A (Adult > 18 yrs) 09/21/2020, 02/10/2020 Hepatitis B, 20+ yrs 09/21/2020,03/23/2020,02/09 Pneumococcal Conjugate Vacci ne, 20-valent ([id number]) 10/26/2022(Deferred: Patient Refused) Pneumococcal Polysaccharide PPV23 (Pneumovax) [...] Team (Late st Contact Info) Description 08/16/2023 10:45 AM EST Office Visit Orthopaedics [facility] 132 [facility] [place] [address] Judy Clay MD 132 [facility] [place] [address] 08/22/2023 8:50 AM EST Laboratory Laboratory [facility] [place] [address] [place] [phone] Neisha, Lab [address] [place] [address] 08/22/2023 10:00 AM EST Hem/Onc Treatment Hematology/Oncology Treatment, [place] [address] [place] [phone] Neisha, Chair 2 Hem Onc [place] [place] [address] 08/25/2023 9:45 AM EST Telemedicine Urology Luli Sanchez [address] [place] [address] [place] [address] Adolfo Key MD [address] [place] [address] [place] [address] 7, Telemed [facility] Urology Ex Rm 132 [place] [address] 08/30/2023 7:40 AM EST Laboratory Laboratory [facility] [address] [place] [phone] Neisha, Lab [address] [place], [place] [address] 08/30/2023 8:45 AM EST Office Visit Hematology/Oncology [facility] [place] [address] [place], [place] [phone] Teto Torrez MD [address] [place], [place] [address] 08/30/2023 9:15 AM EST Hem[facility] [address] [place], [place] [phone] Neisha, Chair 4 Hem Onc [place] [address] [place], [place] [address] 11/15/2023 11:30 AM EDT Office Visit Urology, [facility] 132 [facility] [address] Adolfo Key MD [address] [place] [address] [place] [address] Scheduled Procedures Name Priority Associated Diagnoses Date/Ti [...] this encounter Medical Devices Implanted Type Area Pharmacy Operations Coordinator Device Identifier Shelf Expiration Date Model / Serial / Lot Port Implant W/8f Poly Cath - [id number] Implanted:Qty : 1 on 12/01/2022 by Brad Cerda DO at OR [facility] Right: Chest CR BARD : PERIPHERAL VASCULAR [id number] 02/24/2024 [id number] / / [id number] System Urolift - [id number] Implanted:Qty : 6 on 05/31/2023 by Adolfo Key MD at OR [facility] [employer] 09/01/2023 [id number] / / [id number] Description:prostate documented as of this encounter Visit [...] Flush, Starting on Mon08/15/23 at 1216, Until Mon08/16/23 at 1215, For 24 hours, Do not flush if lock, PICC, or central line not in place; IV infusing or unable to flush. Given 08/15/2023 1:50 PM EST 500 Units sodium chloride 0.9 % flush central line 10 mL 10 mL, IV Push, PRN Other, IV Flush, Starting on Mon08/15/23 at 1216, Until Mon08/16/23 at 1215, For 24 hours, Do not flush if lock, PICC, or central line not in place; IV infusing or unable to flush. Given 08/15/2023 1:50 PM EST 10 mL Inactive Administered Medications - up to 3 most recent administrations Medication Order MAR Action Action Date Dose Rate Site NSS infusion FOR HYDRATION Intravenous, at 1,000 mL/hr Administer over 1 Hours, ONCE, 1 dose, On Mon08/15/23 at 1330 Start Infusion 08/15/2023 11:45 AM EST 1,000 mL 1000 mL/hr documented in this encounter Advance Directives Documents on File Type Date Recorded Patient Wheel Buffer Expl anation POLST 07/13/2023 4:08 PM POLST [...] Discussed due to patient's condition Care Teams Analyst Market Intelligence Relationship Specialty Start Date End Date Ray Royal MD [address] [place] [address] [place] [address] PCP - General Family Medicine 10/22/18 documented as of this encounter
--- OUTSIDE RECORDS SUMMARY | 2023-09-20 05:50 | External Medical Summary | Summary of Care ---
Author Name Unknown Organization [facility] Address [address] [place] [address] Phone [phone] Care Team Providers Care Manufacturing Machine Operator Name Role Phone Ray Royal MD Primary Care Provider [phone] Reason for Visit * Reason Comments Chemotherapy C12/D1 - FOLFIRINOX * Episode Based Medications (Routine) - Closed Specialty Diagnoses / Procedures Referred By Contac t Referred To Contact Diagnoses Adenocarcinoma of pancreas (HCC) Metastasis to liver (HCC) Encounter for antineoplastic chemotherapy Procedures [place] LEUCOVORIN CALCIUM INJECTION [place] FLUOROURACIL INJECTION [place] IRINOTECAN INJECTION [place] OXALIPLATIN [place] FOSAPREPITANT INJECTION [place] PEGFILGRASTIM-BMEZ (ZIEXTENZO), 0.5 MG [place] INJECTION, PEGFILGRASTIM-CBQV, BIOSIMILAR, (UDENYCA), 0.5 MG [place] PALONOSETRON HCL Teto Torrez MD [address] [place] [address] Anc Hem/Onc Scenery Neisha DEPT CLOSED - 05/09/23 [address] [place] [address] Referral ID Status Reason Start Date Expiration Date Visits Re quested Visits Authorized [id number] Closed 12/01/2022 12/06/[phone] Encounter Details Date Type Department Care Team (Latest Contact Info) Description 06/06/2023 9:00 AM EST Hem/Onc Treatment Hematology/Oncolog y Treatment, [place] [address] [place] [address] Neisha, Chair 3 Hem Onc Scenery [address] [place] [address] Adenocarcinoma of pancreas (HCC)*; Metastasis to liver (HCC); Encounter for antineoplastic chemotherapy Allergies No known active allergiesdocumented as of this encounter (statuses as of 08/14/2023) Medications Medication Sig Dispensed Refills Start Date [...] mouth in the morning. 30 Capsule 6 3 06/27/19 24 Discontinued(Re fill) oxyCODONE HCl 5 MG Oral Tablet (Oxy IR)Indications:Marj nocarcinoma of pancreas (HCC),Metastasis to liver (HCC) Take 1 Tablet by mouth every 8 hours as needed for Pain, Moderate. 60 Tablet 0 3 06/24/20 23 Discontinued(Re fill) Sulfamethoxazole-T rimethoprim 800-160 MG Oral Tablet (Bactrim DS) Take 1 Tablet by mouth in the morning and 1 Tablet before bedtime. 6 Tablet 0 3 06/27/19 24 Discontinued documented as of this encounter (statuses as of 08/14/2023) Active Problems Problem Noted Date Diagnosed Date [...] as of this encounter (statuses as of 08/14/2023) Immunizations Name Administration Dates Next Due COVID-19 mRNA, LNP-s, No Pre serve, 2-Dose Series (Tunii) 02/23/2021,02/02/2021 HEP A - Hepatitis A (Adult > 18 yrs) 09/21/2020, 02/10/2020 Hepatitis B, 20+ yrs 09/21/2020,03/23/2020,02/09 Pneumococcal Conjugate Vacci ne, 20-valent ([id number]) 10/26/2022(Deferred: Patient Refused) Pneumococcal Polysaccharide PPV23 (Pneumovax) [...] Sign Reading Time Taken Comments Blood Pressure 118/77 06/06/2023 11:00 AM EST Pulse 84 06/06/2023 11:00 AM EST Temperature 36.4 C (97.5 F) 06/06/2023 11:[address] Respiratory Rate 16 06/06/2023 11:00 AM EST Oxygen Saturation 96% 06/06/2023 11:00 AM EST Inhaled Oxygen Concentration - - Weight - - Height - - Body Mass Index - - documented in this encounter Nursing Notes * Elham Mcdowell RN - 06/06/2023 4:22 PM EST Chair 1. Patient arrived for FOLFIRINOX -- patient expressed ongoing neuropathy with some troubles balancingd/t the neuropathy mainly in his feet. Patient says this has been going on even before his last treatment. RN spoke with Dr. Torrez regarding patient's neuropathy -- will remove Oxaliplatin from plan starting today moving forward -- patient will be receiving Irinotecan/leucovorin/5FU. Patient will st ill get Emend today but moving forward, patient will just get premeds for FOLFIRI tx. Chemo agents FOLFIRINOX Appetite overall good Nausea/Vomiting no Diarrhea usually after treatment days but taking meds to help relieve, will still get IVF on pump d/c day per Dr. Torrez Constipation no Mucositis no Fatigue at times yes Bleeding no Infection no Rash no - does have some broken blood vessels noted on arm Numbness tingling see above Pain some R sided abdominal pain that typically comes and goes, takes Oxy to help when needed Radiation no ABN Labs WNL for tx Alt in Tx: N/A Return in 2 days for pump d/c, IVF Safety and Risk for Injury Patient will [...] condition and denied any further needs. * Starla Casanova RN - 06/05/2023 11:11 AM EST Alk phos 150, ALT 67. Per kevin Britton for treatment. documented in this encounter Plan of Treatment Upcoming Encounters Date Type Department Care Team (Late st Contact Info) Description 08/15/2023 10:20 AM EST Laboratory Laboratory Scenery [place] Shawanda Driver [address] [place] [phone] [place], Lab Scenery [address] [place] [address] 08/15/2023 11:15 AM EST Hem/Onc Treatment Hematology/Oncology Treatment, [place] [address] [place], [place] [phone] Neisha, Chair 4 Hem Onc Scenery [address] [place] [address] 08/16/2023 10:45 AM EST Office Visit Orthopaedics [facility] [address] [facility] [place] [address] Judy Clay MD [address] [place] [address] 08/25/2023 9:45 AM EST Telemedicine Urology Luli Sanchez [address] [place] [address] [place] [address] Adolfo Key MD [address] [address] [place] [address] 7, Telemed [facility] Urology Ex Rm 132 [facility] [place] [address] 08/29/2023 10:00 AM EST Laboratory Laboratory, [facility] 132 [facility] [place] [phone] CardozaPatricio khan [facility] [address] 08/30/2023 8:45 AM EST Office Visit Hematology/Oncology [facility] [place] [address] [place] [phone] Teto Torrez MD [address] [place] [address] 08/30/2023 9:15 AM EST Hem/Onc Treatment Hematology/Oncology Treatment, [place] [address] [place] [phone] Neisha, Chair 4 Hem Onc Scenery [address] [place] [address] 11/15/2023 11:30 AM EDT Office Visit Urology, [facility], [place] [address] [place] [address] Adolfo Key MD [address] [place] [address] [place] [address] Scheduled Procedures Name Priority Associated Diagnoses Date/Ti [...] encounter Medical Devices Implanted Type Area Supervisor Whipped Topping Device Identifier Shelf Expiration Date Model / Serial / Lot Port Implant W/8f Poly Cath - [id number] Implanted:Qty : 1 on 12/01/2022 by Brad Cerda DO at OR [facility] Right: Chest CR BARD : PERIPHERAL VASCULAR [id number] 02/24/2024 [id number] / / [id number] System Urolift - [id number] Implanted:Qty : 6 on 05/31/2023 by Adolfo Key MD at OR [facility] [employer] 09/01/2023 [id number] / / [id number] Description:prostate documented as of this encounter Visit [...] mg 0.4 mg, IV Push, ONCE, On Mon06/06/23 at 1215, For 1 dose, Give before CPT-11 Given 06/06/2023 12:26 PM EST 0.4 mg D5W IV solution Intravenous, at 50 mL/hr, CONTINUOUS, Starting on Mon06/06/23 at 1215, Until Mon06/06/23 at 2037 Start Infusion 06/06/2023 11:39 AM EST 500 mL 50 mL/hr Fluorouracil (5-Fu) 6,100 mg for Home Infusion 6,100 mg (rounded from 6,096 mg = 2,400 mg/m2 2.54 m2 Treatment Plan BSA from Recorded weight), Intravenous, Administer over 46 Hours, Home Infusion Pharmacy to specify base solution and volume., ONCE, 1 dose, On Mon06/06/23 at 1230 Start Infusion 06/06/2023 2:10 PM EST 6,100 mg 5 mL/hr Fosaprepitant Dimeglumine (Emend) 150 mg, ondansetron (Zofran) 16 mg, dexamethasone sodium phosphate 12 mg in NSS 250 mL Infusion 150 mg, IV Piggyback, ONCE, 1 dose, On Mon06/06/23 at 1215, Administer over 30 Minutes, Give 30 minutes prior to chemotherapy. Infuse over 30 minutes. Start Infusion 06/06/2023 11:39 AM EST 150 mg 500 mL/hr irinotecan HCl (Camptosar) 380 mg in D5W 500 mL infusion 380 mg (rounded from 381 mg = 150 mg/m2 2.54 m2 Treatment Plan BSA from Recorded weight), IV Piggyback, ONCE, 1 dose, On Mon06/06/23 at 1215, Administer over 90 Minutes, PROTECT FROM LIGHT Start Infusion 06/06/2023 12:26 PM EST 380 mg 333.33 mL/hr leucovorin calcium 1,000 mg in D5W 250 mL INFUSION 1,000 mg (rounded from 1,016 mg = 400 mg/m2 2.54 m2 Treatment Plan BSA from Recorded weight), IV Piggyback, ONCE, 1 dose, On Mon06/06/23 at 1215, Administer over 90 Minutes, Run concurrently with irinotecan immediately prior to 5FU Start Infusion 06/06/2023 12:26 PM EST 1,000 mg 166.67 mL/hr sodium chloride 0.9 % flush central line 10 mL 10 mL, IV Push, PRN Other, IV Flush, Starting on Mon06/06/23 at 1138, Until Mon06/06/23 at 2038, For 24 hours, Do not flush if lock, PICC, or central line not in place; IV infusing or unable to flush. Given 06/06/2023 2:09 PM EST 10 mL documented in this encounter Advance Directives Documents on File Type Date Recorded Patient Cashiers Bussers Food Runners Expl anation POLST 07/13/2023 4:08 PM POLST [...] Discussed due to patient's condition Care Teams Manufacturing Machine Operator Relationship Specialty Start Date End Date Ray Royal MD [address] [place] [address] [place] [address] PCP - General Family Medicine 10/22/18 documented as of this encounter
--- OUTSIDE RECORDS SUMMARY | 2023-09-20 05:50 | External Medical Summary | Summary of Care ---
Author Name Unknown Organization [facility] Address [address] [place] [address] Phone [phone] Care Team Providers Care Air Press Operator Name Role Phone Ray Royal MD Primary Care Provider [phone] Reason for Visit * Reason Comments Chemotherapy C12/D1 - FOLFIRINOX * Episode Based Medications (Routine) - Closed Specialty Diagnoses / Procedures Referred By Contac t Referred To Contact Diagnoses Adenocarcinoma of pancreas (HCC) Metastasis to liver (HCC) Encounter for antineoplastic chemotherapy Procedures [place] LEUCOVORIN CALCIUM INJECTION CO FLUOROURACIL INJECTION CO IRINOTECAN INJECTION CO OXALIPLATIN CO FOSAPREPITANT INJECTION CO PEGFILGRASTIM-BMEZ (ZIEXTENZO), 0.5 MG [place] INJECTION, PEGFILGRASTIM-CBQV, BIOSIMILAR, (UDENYCA), 0.5 MG [place] PALONOSETRON HCL Teto Torrez MD [address] [place] [address] Anc Hem/Onc Scenery Neisha DEPT CLOSED - 05/09/23 [address] [place] [address] Referral ID Status Reason Start Date Expiration Date Visits Re quested Visits Authorized [id number] Closed 12/01/2022 12/06/2023 999 99 Encounter Details Date Type Department Care Team (Latest Contact Info) Description 06/06/2023 9:00 AM EST Hem/Onc Treatment Hematology/Oncolog y Treatment, [place] [address] [place] [address] Neisha, [...] mRNA, LNP-s, No Pre serve, 2-Dose Series (DreamLines) 02/23/2021,02/02/2021 HEP A - Hepatitis A (Adult > 18 yrs) 09/21/2020, 02/10/2020 Hepatitis B, 20+ yrs 09/21/2020,03/23/2020,02/09 Pneumococcal Conjugate Vacci ne, 20-valent (Ltamvjg31) 10/26/2022(Deferred: Patient Refused) Pneumococcal Polysaccharide PPV23 (Pneumovax) [...] State [place] Driver [address] [place] [phone] [place], Lab Scenery [address] [place] [address] 08/15/2023 11:15 AM EST Hem/Onc Treatment Hematology/Oncology Treatment, [place] [address] [place], [place] [phone] Neisha, Chair 4 Hem Onc Scenery [address] [place] [address] 08/16/2023 10:45 AM EST Office Visit Orthopaedics [facility] [address] [facility] [place] [address] Judy Clay MD [address] [place] [address] 08/25/2023 9:45 AM EST Telemedicine Urology Luli Sanchez [address] [place] [address] [place] [address] Adolfo Key MD [address] [place] [address] [place] [address] 7, Telemed [facility] Urology Ex Rm 132 [facility] [place] [address] 08/29/2023 10:00 AM EST Laboratory Laboratory, [facility] 132 [facility] [place] [phone] CardozaPatricio khan [facility] 132 [facility] [address] 08/30/2023 8:45 AM EST Office Visit Hematology/Oncology [facility] [place]isha [place] [address] [place] [phone] Teto Torrez MD [address] [place] [address] 08/30/2023 9:15 AM EST Hem/Onc Treatment Hematology/Oncology Treatment, [place] [address] [place] [phone] Neisha, Chair 4 Hem Onc Scenery [address] [place] [address] 11/15/2023 11:30 AM EDT Office Visit Urology, [facility], [place] [address] [place] [address] Adolfo Key MD [address] [place] [address] [place] [address] Scheduled Procedures Name Priority Associated Diagnoses Date/Ti [...] this encounter Medical Devices Implanted Type Area Director Validation Device Identifier Shelf Expiration Date Model / Serial / Lot Port Implant W/8f Poly Cath - [id number] Implanted:Qty : 1 on 12/01/2022 by Brad Cerda DO at OR [facility] Right: Chest CR BARD : PERIPHERAL VASCULAR [id number] 02/24/2024 [id number] / / [id number] System Urolift - [id number] Implanted:Qty : 6 on 05/31/2023 by Adolfo Key MD at OR [facility] [employer] 09/01/2023 [id number] / / [id number] Description:prostate documented as of this encounter Visit [...] Documents on File Type Date Recorded Patient Inspector Tester Sorter Expl anation POLST 07/13/2023 4:08 PM POLST [...] Discussed due to patient's condition Care Teams Air Press Operator Relationship Specialty Start Date End Date Ray Royal MD [address] [place] [address] [place] [address] PCP - General Family Medicine 10/22/18 documented as of this encounter
--- OUTSIDE RECORDS SUMMARY | 2023-09-20 05:50 | External Medical Summary | Summary of Care ---
Author Name Unknown Organization [facility] Address [address] [place] [address] Phone [phone] Care Team Providers Care Continuous Loft Operator Name Role Phone Ray Royal MD Primary Care Provider [phone] Reason for Visit * Reason Comments Chemotherapy C12/D1 - FOLFIRINOX * Episode Based Medications (Routine) - Closed Specialty Diagnoses / Procedures Referred By Contac t Referred To Contact Diagnoses Adenocarcinoma of pancreas (HCC) Metastasis to liver (HCC) Encounter for antineoplastic chemotherapy Procedures [place] LEUCOVORIN CALCIUM INJECTION [place] FLUOROURACIL INJECTION [place] IRINOTECAN INJECTION MA OXALIPLATIN [place] FOSAPREPITANT INJECTION [place] PEGFILGRASTIM-BMEZ (ZIEXTENZO), 0.5 MG [place] INJECTION, PEGFILGRASTIM-CBQV, BIOSIMILAR, (UDENYCA), 0.5 MG [place] PALONOSETRON HCL Teto Torrez MD [address] [place] [address] Anc Hem/Onc Scenery [place] DEPT CLOSED - 05/09/23 [address] [place] [address] Referral ID Status Reason Start Date Expiration Date Visits Re quested Visits Authorized [id number] Closed 12/01/2022 12/06/2023 999 99 Encounter Details Date Type Department Care Team (Latest Contact Info) Description 06/06/2023 9:00 AM EST Hem/Onc Treatment Hematology/Oncolog y Treatment, [place] [address] [place] [address] Neisha, [...] mRNA, LNP-s, No Pre serve, 2-Dose Series (Ameri-[employer] 3D) 02/23/2021,02/02/2021 HEP A - Hepatitis A (Adult > 18 yrs) 09/21/2020, 02/10/2020 Hepatitis B, 20+ yrs 09/21/2020,03/23/2020,02/09 Pneumococcal Conjugate Vacci ne, 20-valent (Oeqvxeg37) 10/26/2022(Deferred: Patient Refused) Pneumococcal Polysaccharide PPV23 (Pneumovax) [...] State Shaw[place] Driver [address] [place] [phone] [place], Lab Scenery [address] [place] [address] 08/15/2023 11:15 AM EST Hem/Onc Treatment Hematology/Oncology Treatment, [place] [address] [place], [place] [phone] Neisha, Chair 4 Hem Onc Scenery [address] [place] [address] 08/16/2023 10:45 AM EST Office Visit Orthopaedics [facility] [address] [facility] [place] [address] Judy Clay MD [address] [place] [address] 08/25/2023 9:45 AM EST Telemedicine Urology Luli Sanchez [address] [place] [address] [place] [address] Adolfo Key MD [address] [place] [address] [place] [address] 7, Telemed [facility] Urology Ex Rm 132 [facility] [place] [address] 08/29/2023 10:00 AM EST Laboratory Laboratory, [facility] 132 [facility] [place] [phone] CardozaPatricio khan [facility] 132 [facility] [address] 08/30/2023 8:45 AM EST Office Visit Hematology/Oncology [facility] Neisha [place] [address] [place] [phone] Teto Torrez MD [address] [place] [address] 08/30/2023 9:15 AM EST Hem/Onc Treatment Hematology/Oncology Treatment, [place] [address] [place] [phone] [place]isha, Chair 4 Hem Onc Scenery [address] [place] [address] 11/15/2023 11:30 AM EDT Office Visit Urology, [facility], [place] [address] [place] [address] Adolfo Key MD [address] [place] [address] [place] [address] Scheduled Procedures Name Priority Associated Diagnoses Date/Ti [...] this encounter Medical Devices Implanted Type Area Form Press Operator Device Identifier Shelf Expiration Date Model / Serial / Lot Port Implant W/8f Poly Cath - [id number] Implanted:Qty : 1 on 12/01/2022 by Brad Cerda DO at OR [facility] Right: Chest CR BARD : PERIPHERAL VASCULAR [id number] 02/24/2024 [id number] / / [id number] System Urolift - [id number] Implanted:Qty : 6 on 05/31/2023 by Adolfo Key MD at OR [facility] [employer] 09/01/2023 [id number] / / [id number] Description:prostate documented as of this encounter Visit [...] Documents on File Type Date Recorded Patient Double End Trimmer Expl anation POLST 07/13/2023 4:08 PM POLST [...] Discussed due to patient's condition Care Teams Continuous Loft Operator Relationship Specialty Start Date End Date Ray Royal MD [address] [place] [address] [place] [address] PCP - General Family Medicine 10/22/18 documented as of this encounter
--- OUTSIDE RECORDS SUMMARY | 2023-09-20 05:50 | External Medical Summary | Summary of Care ---
Author Name Unknown Organization [facility] Address [address] [place] [address] Phone [phone] Care Team Providers Care Welding Equipment Repairer Name Role Phone Ray Royal MD Primary Care Provider [phone] Reason for Visit * Reason Comments Chemotherapy C12/D1 - FOLFIRINOX * Episode Based Medications (Routine) - Closed Specialty Diagnoses / Procedures Referred By Contac t Referred To Contact Diagnoses Adenocarcinoma of pancreas (HCC) Metastasis to liver (HCC) Encounter for antineoplastic chemotherapy Procedures ID LEUCOVORIN CALCIUM INJECTION ID FLUOROURACIL INJECTION ID IRINOTECAN INJECTION ID OXALIPLATIN ID FOSAPREPITANT INJECTION ID PEGFILGRASTIM-BMEZ (ZIEXTENZO), 0.5 MG ID INJECTION, PEGFILGRASTIM-CBQV, BIOSIMILAR, (UDENYCA), 0.5 MG [place] PALONOSETRON HCL Teto Torrez MD [address] [place] [address] Anc Hem/Onc Scenery [place] DEPT CLOSED - 05/09/23 [address] [place] [address] Referral ID Status Reason Start Date Expiration Date Visits Re quested Visits Authorized [id number] Closed 12/01/2022 12/06/2023 999 99 Encounter Details Date Type Department Care Team (Latest Contact Info) Description 06/06/2023 9:00 AM EST Hem/Onc Treatment Hematology/Oncolog y Treatment, [place] [address] [place] [address] Neisha, [...] mRNA, LNP-s, No Pre serve, 2-Dose Series (MYOMO) 02/23/2021,02/02/2021 HEP A - Hepatitis A (Adult > 18 yrs) 09/21/2020, 02/10/2020 Hepatitis B, 20+ yrs 09/21/2020,03/23/2020,02/09 Pneumococcal Conjugate Vacci ne, 20-valent (Gsmhdey42) 10/26/2022(Deferred: Patient Refused) Pneumococcal Polysaccharide PPV23 (Pneumovax) [...] State Shaw[place] Driver [address] [place] [phone] [place], Lab Scenery [address] [place] [address] 08/15/2023 11:15 AM EST Hem/Onc Treatment Hematology/Oncology Treatment, [place] [address] [place], [place] [phone] Neisha, Chair 4 Hem Onc Scenery [address] [place] [address] 08/16/2023 10:45 AM EST Office Visit Orthopaedics [facility] [address] [facility] [place] [address] Judy Clay MD [address] [place] [address] 08/25/2023 9:45 AM EST Telemedicine Urology Luli Sanchez [address] [place] [address] [place] [address] Adolfo Key MD [address] [place] [address] [place] [address] 7, Telemed [facility] Urology Ex Rm 132 [facility] [place] [address] 08/29/2023 10:00 AM EST Laboratory Laboratory, [facility] 132 [facility] [place] [phone] CardozaPatricio khan [facility] 132 [facility] [address] 08/30/2023 8:45 AM EST Office Visit Hematology/Oncology [facility] Neisha [place] [address] [place] [phone] Teto Torrez MD [address] [place] [address] 08/30/2023 9:15 AM EST Hem/Onc Treatment Hematology/Oncology Treatment, [place] [address] [place] [phone] [place]isha, Chair 4 Hem Onc Scenery [address] [place] [address] 11/15/2023 11:30 AM EDT Office Visit Urology, [facility], [place] [address] [place] [address] Adolfo Key MD [address] [place] [address] [place] [address] Scheduled Procedures Name Priority Associated Diagnoses Date/Ti [...] this encounter Medical Devices Implanted Type Area Heavy Duty Press Operator Device Identifier Shelf Expiration Date Model / Serial / Lot Port Implant W/8f Poly Cath - [id number] Implanted:Qty : 1 on 12/01/2022 by Brad Cerda DO at OR [facility] Right: Chest CR BARD : PERIPHERAL VASCULAR [id number] 02/24/2024 [id number] / / [id number] System Urolift - [id number] Implanted:Qty : 6 on 05/31/2023 by Adolfo Key MD at OR 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
--- OUTSIDE RECORDS SUMMARY | 2023-09-20 05:50 | External Medical Summary | Summary of Care ---
Author Name Unknown Organization [facility] Address [address] [place] [address] Phone [phone] Care Team Providers Care Resistor Tester Name Role Phone Ray Royal MD Primary Care Provider [phone] Reason for Visit * Reason Comments Chemotherapy C12/D1 - FOLFIRINOX * Episode Based Medications (Routine) - Closed Specialty Diagnoses / Procedures Referred By Contac t Referred To Contact Diagnoses Adenocarcinoma of pancreas (HCC) Metastasis to liver (HCC) Encounter for antineoplastic chemotherapy Procedures [place] LEUCOVORIN CALCIUM INJECTION [place] FLUOROURACIL INJECTION MN IRINOTECAN INJECTION MN OXALIPLATIN MN FOSAPREPITANT INJECTION MN PEGFILGRASTIM-BMEZ (ZIEXTENZO), 0.5 MG MN INJECTION, PEGFILGRASTIM-CBQV, BIOSIMILAR, (UDENYCA), 0.5 MG [place] PALONOSETRON HCL Teto Torrez MD [address] [place] [address] Anc Hem/Onc Scenery Neisha DEPT CLOSED - 05/09/23 [address] [place] [address] Referral ID Status Reason Start Date Expiration Date Visits Re quested Visits Authorized [id number] Closed 12/01/2022 12/06/[phone] Encounter Details Date Type Department Care Team (Latest Contact Info) Description 06/06/2023 9:00 AM EST Hem/Onc Treatment Hematology/Oncolog y Treatment, [place] [address] [place] [address] Neisha, [...] mRNA, LNP-s, No Pre serve, 2-Dose Series ([facility] [facility]) 02/23/2021,02/02/2021 HEP A - Hepatitis A (Adult > 18 yrs) 09/21/2020, 02/10/2020 Hepatitis B, 20+ yrs 09/21/2020,03/23/2020,02/09 Pneumococcal Conjugate Vacci ne, 20-valent ([id number]) 10/26/2022(Deferred: Patient Refused) Pneumococcal Polysaccharide PPV23 (Pneumovax) [...] State Shawanda Driver [address] [place] [phone] [place], Lab Scenery [address] [place] [address] 08/15/2023 11:15 AM EST Hem/Onc Treatment Hematology/Oncology Treatment, [place] [address] [place], [place] [phone] Neisha, Chair 4 Hem Onc Scenery [address] [place] [address] 08/16/2023 10:45 AM EST Office Visit Orthopaedics [facility] [address] [facility] [place] [address] Judy Clay MD [address] [place] [address] 08/25/2023 9:45 AM EST Telemedicine Urology Luli Sanchez [address] [place] [address] Adolfo Key MD [address] [place] [address] 7, Telemed [facility] Urology Ex Rm 132 [facility] [place] [address] 08/29/2023 10:00 AM EST Laboratory Laboratory, [facility] 132 [facility] [place] [phone] CardozaPatricio khan [facility] 132 [facility] [address] 08/30/2023 8:45 AM EST Office Visit Hematology/Oncology [facility] [place]isha [place] [address] [place] [phone] Teto Torrez MD [address] [place] [address] 08/30/2023 9:15 AM EST Hem/Onc Treatment Hematology/Oncology Treatment, [place] [address] [place] [phone] Neisha, Chair 4 Hem Onc Scenery [address] [place] [address] 11/15/2023 11:30 AM EDT Office Visit [facility], [facility] [place] [address] [place] [address] Adolfo Key MD [address] [place] [address] Scheduled Procedures Name Priority Associated Diagnoses Date/Ti [...] this encounter Medical Devices Implanted Type Area Vascular Radiologist Device Identifier Shelf Expiration Date Model / Serial / Lot Port Implant W/8f Poly Cath - [id number] Implanted:Qty : 1 on 12/01/2022 by Brad Cerda DO at OR [facility] Right: Chest CR BARD : PERIPHERAL VASCULAR [id number] 02/24/2024 [id number] / / [id number] System Urolift - [id number] Implanted:Qty : 6 on 05/31/2023 by Adolfo Key MD at OR [facility] [employer] 09/01/2023 [id number] / / [id number] Description:prostate documented as of this encounter Visit [...] Documents on File Type Date Recorded Patient Pulverizer Tender Expl anation POLST 07/13/2023 4:08 PM POLST [...] Discussed due to patient's condition Care Teams Resistor Tester Relationship Specialty Start Date End Date Ray Royal MD [address] [place] [address] [place] [address] PCP - General Family Medicine 10/22/18 documented as of this encounter
--- OUTSIDE RECORDS SUMMARY | 2023-09-20 05:50 | External Medical Summary | Summary of Care ---
Author Name Unknown Organization [facility] Address [address] [place] [address] Phone [phone] Care Team Providers Care Industrial Waste Inspector Name Role Phone Ray Royal MD Primary Care Provider [phone] Reason for Visit * Reason Comments Chemotherapy C12/D1 - FOLFIRINOX * Episode Based Medications (Routine) - Closed Specialty Diagnoses / Procedures Referred By Contac t Referred To Contact Diagnoses Adenocarcinoma of pancreas (HCC) Metastasis to liver (HCC) Encounter for antineoplastic chemotherapy Procedures [place] LEUCOVORIN CALCIUM INJECTION [place] FLUOROURACIL INJECTION IA IRINOTECAN INJECTION IA OXALIPLATIN IA FOSAPREPITANT INJECTION [place] PEGFILGRASTIM-BMEZ (ZIEXTENZO), 0.5 MG [place] INJECTION, PEGFILGRASTIM-CBQV, BIOSIMILAR, (UDENYCA), 0.5 MG [place] PALONOSETRON HCL Teto Torrez MD [address] [place] [address] Anc Hem/Onc Scenery Neisha DEPT CLOSED - 05/09/23 [address] [place] [address] Referral ID Status Reason Start Date Expiration Date Visits Re quested Visits Authorized [id number] Closed 12/01/2022 12/06/2023 999 99 Encounter Details Date Type Department Care Team (Latest Contact Info) Description 06/06/2023 9:00 AM EST Hem/Onc Treatment Hematology/Oncolog y Treatment, [place] [address] [place] [address] Neisha, [...] mRNA, LNP-s, No Pre serve, 2-Dose Series ([employer]) 02/23/2021,02/02/2021 HEP A - Hepatitis A (Adult > 18 yrs) 09/21/2020, 02/10/2020 Hepatitis B, 20+ yrs 09/21/2020,03/23/2020,02/09 Pneumococcal Conjugate Vacci ne, 20-valent ([id number]) 10/26/2022(Deferred: Patient Refused) Pneumococcal Polysaccharide PPV23 (Pneumovax) [...] State Shawanda Driver [address] [place] [phone] [place], Lab Scenery [address] [place] [address] 08/15/2023 11:15 AM EST Hem/Onc Treatment Hematology/Oncology Treatment, [place] [address] [place], [place] [phone] Neisha, Chair 4 Hem Onc Scenery [address] [place] [address] 08/16/2023 10:45 AM EST Office Visit Orthopaedics [facility] [address] [facility] [place] [address] Judy Clay MD [address] [place] [address] 08/25/2023 9:45 AM EST Telemedicine Urology Luli Sanchez [address] [place] [address] Adolfo Key MD [address] [place] [address] 7, Telemed [facility] Urology Ex Rm 132 [facility] [place] [address] 08/29/2023 10:00 AM EST Laboratory Laboratory, [facility] 132 [facility] [place] [phone] CardozaPatricio khan [facility] 132 [facility] [address] 08/30/2023 8:45 AM EST Office Visit Hematology/Oncology [facility] Neisha [place] [address] [place] [phone] Teto Torrez MD [address] [place] [address] 08/30/2023 9:15 AM EST Hem/Onc Treatment Hematology/Oncology Treatment, [place] [address] [place] [phone] Neisha, Chair 4 Hem Onc Scenery [address] [place] [address] 11/15/2023 11:30 AM EDT Office Visit Urology, [facility], [place] [address] [place] [address] Adolfo Key MD [address] [place] [address] Scheduled Procedures Name Priority Associated Diagnoses Date/Ti [...] this encounter Medical Devices Implanted Type Area Professor Of Business Administration Device Identifier Shelf Expiration Date Model / Serial / Lot Port Implant W/8f Poly Cath - [id number] Implanted:Qty : 1 on 12/01/2022 by Brad Cerda DO at OR [facility] Right: Chest CR BARD : PERIPHERAL VASCULAR [id number] 02/24/2024 [id number] / / [id number] System Urolift - [id number] Implanted:Qty : 6 on 05/31/2023 by Adolfo Key MD at OR [facility] [employer] 09/01/2023 VD479-7 / / [id number] Description:prostate documented as of this encounter Visit [...] Documents on File Type Date Recorded Patient Progressive Care Unit Registered Nurse Expl anation POLST 07/13/2023 4:08 PM [...] Discussed due to patient's condition Care Teams Industrial Waste Inspector Relationship Specialty Start Date End Date Ray Royal MD [address] [place] [address] [place] [address] PCP - General Family Medicine 10/22/18 documented as of this encounter
--- OUTSIDE RECORDS SUMMARY | 2023-09-20 05:50 | External Medical Summary | Summary of Care ---
Author Name Unknown Organization [facility] Address [address] [place] [address] Phone [phone] Care Team Providers Care Inclusion Internship Name Role Phone Ray Royal MD Primary Care Provider [phone] Reason for Visit * Reason Comments Chemotherapy C12/D1 - FOLFIRINOX * Episode Based Medications (Routine) - Closed Specialty Diagnoses / Procedures Referred By Contac t Referred To Contact Diagnoses Adenocarcinoma of pancreas (HCC) Metastasis to liver (HCC) Encounter for antineoplastic chemotherapy Procedures [place] LEUCOVORIN CALCIUM INJECTION DC FLUOROURACIL INJECTION DC IRINOTECAN INJECTION DC OXALIPLATIN DC FOSAPREPITANT INJECTION DC PEGFILGRASTIM-BMEZ (ZIEXTENZO), 0.5 MG DC INJECTION, PEGFILGRASTIM-CBQV, BIOSIMILAR, (UDENYCA), 0.5 MG [place] PALONOSETRON HCL Teto Torrez MD [address] [place] [address] Anc Hem/Onc Scenery Neisha DEPT CLOSED - 05/09/23 [address] [place] [address] Referral ID Status Reason Start Date Expiration Date Visits Re quested Visits Authorized [id number] Closed 12/01/2022 12/06/2023 999 99 Encounter Details Date Type Department Care Team (Latest Contact Info) Description 06/06/2023 9:00 AM EST Hem/Onc Treatment Hematology/Oncolog y Treatment, [place] [address] [place] [address] Neisha, [...] mRNA, LNP-s, No Pre serve, 2-Dose Series ([employer]) 02/23/2021,02/02/2021 HEP A - Hepatitis A (Adult > 18 yrs) 09/21/2020, 02/10/2020 Hepatitis B, 20+ yrs 09/21/2020,03/23/2020,02/09 Pneumococcal Conjugate Vacci ne, 20-valent (Kckxqeq15) 10/26/2022(Deferred: Patient Refused) Pneumococcal Polysaccharide PPV23 (Pneumovax) [...] State Shawanda Driver [address] [place] [phone] [place], Lab Scenery [address] [place] [address] 08/15/2023 11:15 AM EST Hem/Onc Treatment Hematology/Oncology Treatment, [place] [address] [place], [place] [phone] Neisha, Chair 4 Hem Onc Scenery [address] [place] [address] 08/16/2023 10:45 AM EST Office Visit Orthopaedics [facility] [address] [facility] [place] [address] Judy Clay MD [address] [place] [address] 08/25/2023 9:45 AM EST Telemedicine Urology Luli Sanchez [address] [place] [address] Adolfo Key MD [address] [place] [address] 7, Telemed [facility] Urology Ex Rm 132 [facility] [place] [address] 08/29/2023 10:00 AM EST Laboratory Laboratory, [facility] 132 [facility] [place] [phone] CardozaPatricio khan [facility] 132 [facility] [address] 08/30/2023 8:45 AM EST Office Visit Hematology/Oncology [facility] Neisha [place] [address] [place] [phone] Teto Torrez MD [address] [place] [address] 08/30/2023 9:15 AM EST Hem/Onc Treatment Hematology/Oncology Treatment, [place] [address] [place] [phone] Neisha, Chair 4 Hem Onc Scenery [address] [place] [address] 11/15/2023 11:30 AM EDT Office Visit Urology, [facility], [place] [address] [place] [address] Adolfo Key MD [address] [place] [address] Scheduled Procedures Name Priority Associated Diagnoses Date/Ti [...] this encounter Medical Devices Implanted Type Area High Speed Warper Tender Device Identifier Shelf Expiration Date Model / Serial / Lot Port Implant W/8f Poly Cath - [id number] Implanted:Qty : 1 on 12/01/2022 by Brad Cerda DO at OR [facility] Right: Chest CR BARD : PERIPHERAL VASCULAR [id number] 02/24/2024 [id number] / / [id number] System Urolift - [id number] Implanted:Qty : 6 on 05/31/2023 by Adolfo Key MD at OR [facility] [employer] 09/01/2023 [id number] / / [id number] Description:prostate documented as of this encounter Visit [...] Documents on File Type Date Recorded Patient Layout Mechanic Expl anation POLST 07/13/2023 4:08 PM [...] Discussed due to patient's condition Care Teams Inclusion Internship Relationship Specialty Start Date End Date Ray Royal MD [address] [place] [address] [place] [address] PCP - General Family Medicine 10/22/18 documented as of this encounter
--- OUTSIDE RECORDS SUMMARY | 2023-09-20 05:51 | External Medical Summary | Summary of Care ---
Author Name Unknown Organization [facility] Address [address] [place] [address] Phone [phone] Care Team Providers Care Detective Homicide Squad Name Role Phone Ray Royal MD Primary Care Provider [phone] Reason for Visit * Reason Comments Chemotherapy C12/D1 - FOLFIRINOX * Episode Based Medications (Routine) - Closed Specialty Diagnoses / Procedures Referred By Contac t Referred To Contact Diagnoses Adenocarcinoma of pancreas (HCC) Metastasis to liver (HCC) Encounter for antineoplastic chemotherapy Procedures [place] LEUCOVORIN CALCIUM INJECTION SC FLUOROURACIL INJECTION SC IRINOTECAN INJECTION SC OXALIPLATIN SC FOSAPREPITANT INJECTION SC PEGFILGRASTIM-BMEZ (ZIEXTENZO), 0.5 MG SC INJECTION, PEGFILGRASTIM-CBQV, BIOSIMILAR, (UDENYCA), 0.5 MG [place] PALONOSETRON HCL Teto Torrez MD [address] [place] [address] Anc Hem/Onc [place] DEPT CLOSED - 05/09/23 [address] [place] [address] Referral ID Status Reason Start Date Expiration Date Visits Re quested Visits Authorized [id number] Closed 12/01/2022 12/06/2023 999 99 Encounter Details Date Type Department Care Team (Latest Contact Info) Description 06/06/2023 9:00 AM EST Hem/Onc Treatment Hematology/Oncolog y Treatment, [place] [address] [place] [address] Neisha, Chair 3 Hem Onc Scenery [address] [place] [phone] Adenocarcinoma of pancreas (HCC)*; Metastasis to liver (HCC); Encounter for antineoplastic chemotherapy Allergies No known active allergiesdocumented as of this encounter (statuses as of 08/13/2023) Medications Medication Sig Dispensed Refills Start Date [...] as of this encounter (statuses as of 08/13/2023) Active Problems Problem Noted Date Diagnosed Date [...] as of this encounter (statuses as of 08/13/2023) Immunizations Name Administration Dates Next Due COVID-19 mRNA, LNP-s, No Pre serve, 2-Dose Series ([employer]) 02/23/2021,02/02/2021 HEP A - Hepatitis A (Adult > 18 yrs) 09/21/2020, 02/10/2020 Hepatitis B, 20+ yrs 09/21/2020,03/23/2020,02/09 Pneumococcal Conjugate Vacci ne, 20-valent (Eapoulo39) 10/26/2022(Deferred: Patient Refused) Pneumococcal Polysaccharide PPV23 (Pneumovax) [...] EST Alk phos 150, ALT 67. Per Dr Torrez, ok for treatment. documented in this encounter Plan of Treatment Upcoming Encounters Date Type Department Care Team (Late st Contact Info) Description 08/15/2023 10:20 AM EST Laboratory Laboratory Scenery [place] Driver [address] [place] [phone] [place], Lab Scene [address] [facility] [place] [address] 08/15/2023 11:15 AM EST Hem/Onc Treatment Hematology/Oncology Treatment, [place] 200 [facility], [place] [address] Neisha, Chair 4 Hem Onc [facility] 200 [facility] [place] [address] 08/16/2023 10:45 AM EST Office Visit Orthopaedics [facility] [address] [facility] [place] [address] Judy Clay MD [address] [place] [address] 08/25/2023 9:45 AM EST Telemedicine Urology Luli Sanchez [address] [place] [address] [place] [address] Adolfo Key MD [address] [place] [address] 7, Telemed [facility] Urology Ex Rm 132 [facility] [place] [address] 08/29/2023 10:00 AM EST Laboratory Laboratory, [facility] 132 [facility] [place] [phone] [facility] 132 [facility] [place] [address] 08/30/2023 8:45 AM EST Office Visit Hematology/Oncology [facility] Neisha [place] 200 [facility] [place] [address] Teto Torrez MD 200 [facility] [address] 08/30/2023 9:15 AM EST Hem/Onc Treatment Hematology/Oncology Treatment, [place] 200 [place] [address] Neisha, Chair 4 Hem Onc Scenery [address] [place] [address] 11/15/2023 11:30 AM EDT Office Visit Urology, [facility] [address] [place] [address] Adolfo Key MD 27 [facility] [address] [place] [address] Scheduled Procedures [...] this encounter Medical Devices Implanted Type Area Land Mobile Radio Technician Device Identifier Shelf Expiration Date Model / Serial / Lot Port Implant W/8f Poly Cath - [id number] Implanted:Qty : 1 on 12/01/2022 by Brad Cerda DO at OR [facility] Right: Chest CR BARD : PERIPHERAL VASCULAR [id number] 02/24/2024 [id number] / / [id number] System Urolift - [id number] Implanted:Qty : 6 on 05/31/2023 by Adolfo Key MD at OR [facility] [employer] 09/01/2023 [id number] / / [id number] Description:prostate documented as of this encounter Visit [...] Documents on File Type Date Recorded Patient Technical Account Manager Expl anation POLST 07/13/2023 4:08 PM [...] Discussed due to patient's condition Care Teams Detective Homicide Squad Relationship Specialty Start Date End Date Ray Royal MD [address] [place] [address] [place] [address] PCP - General Family Medicine 10/22/18 documented as of this encounter
--- OUTSIDE RECORDS SUMMARY | 2023-09-20 05:51 | External Medical Summary | Summary of Care ---
Author Name Unknown Organization [facility] Address [address] [place] [address] Phone [phone] Care Team Providers Care Body Finisher Name Role Phone Ray Royal MD Primary Care Provider [phone] Reason for Visit * Reason Comments Chemotherapy C12/D1 - FOLFIRINOX * Episode Based Medications (Routine) - Closed Specialty Diagnoses / Procedures Referred By Contac t Referred To Contact Diagnoses Adenocarcinoma of pancreas (HCC) Metastasis to liver (HCC) Encounter for antineoplastic chemotherapy Procedures [place] LEUCOVORIN CALCIUM INJECTION GA FLUOROURACIL INJECTION GA IRINOTECAN INJECTION GA OXALIPLATIN GA FOSAPREPITANT INJECTION GA PEGFILGRASTIM-BMEZ (ZIEXTENZO), 0.5 MG GA INJECTION, PEGFILGRASTIM-CBQV, BIOSIMILAR, (UDENYCA), 0.5 MG [place] PALONOSETRON HCL Teto Torrez MD [address] [place] [address] Anc Hem/Onc Scenery [place] DEPT CLOSED - 05/09/23 [address] [place] [address] Referral ID Status Reason Start Date Expiration Date Visits Re quested Visits Authorized [id number] Closed 12/01/2022 12/06/2023 999 99 Encounter Details Date Type Department Care Team (Latest Contact Info) Description 06/06/2023 9:00 AM EST Hem/Onc Treatment Hematology/Oncolog y Treatment, [place] [address] [place] [address] Neisha, [...] mRNA, LNP-s, No Pre serve, 2-Dose Series ([employer]) 02/23/2021,02/02/2021 HEP A - Hepatitis A (Adult > 18 yrs) 09/21/2020, 02/10/2020 Hepatitis B, 20+ yrs 09/21/2020,03/23/2020,02/09 Pneumococcal Conjugate Vacci ne, 20-valent (Eefjhfr55) 10/26/2022(Deferred: Patient Refused) Pneumococcal Polysaccharide PPV23 (Pneumovax) [...] State [place] Driver [address] [place] [phone] [place], Lab Scenery [address] [place] [address] 08/15/2023 11:15 AM EST Hem/Onc Treatment Hematology/Oncology Treatment, [place] [address] [place], [place] [phone] Neisha, Chair 4 Hem Onc Scenery [address] [place] [address] 08/16/2023 10:45 AM EST Office Visit Orthopaedics [facility] [address] [facility] [place] [address] Judy Clay MD [address] [place] [address] 08/25/2023 9:45 AM EST Telemedicine Urology Luli Sanchez [address] [place] [address] Adolfo Key MD [address] [place] [address] 7, Telemed [facility] Urology Ex Rm 132 [facility] [place] [address] 08/29/2023 10:00 AM EST Laboratory Laboratory, [facility] 132 [facility] [place] [phone] CardozaPatricio khan [facility] 132 [facility] [address] 08/30/2023 8:45 AM EST Office Visit Hematology/Oncology [facility] Neisha [place] [address] [place] [phone] Teto Torrez MD [address] [place] [address] 08/30/2023 9:15 AM EST Hem/Onc Treatment Hematology/Oncology Treatment, [place] [address] [place] [phone] Neisha, Chair 4 Hem Onc Scenery [address] [place] [address] 11/15/2023 11:30 AM EDT Office Visit Urology, [facility], [place] [address] [place] [address] Adolfo Key MD [address] [place] [address] Scheduled Procedures Name Priority Associated Diagnoses Date/Ti [...] this encounter Medical Devices Implanted Type Area Wood Heel Finisher Device Identifier Shelf Expiration Date Model / Serial / Lot Port Implant W/8f Poly Cath - [id number] Implanted:Qty : 1 on 12/01/2022 by Brad Cerda DO at OR [facility] Right: Chest CR BARD : PERIPHERAL VASCULAR [id number] 02/24/2024 [id number] / / [id number] System Urolift - [id number] Implanted:Qty : 6 on 05/31/2023 by Adolfo Key MD at OR [facility] [employer] 09/01/2023 [id number] / / [id number] Description:prostate documented as of this encounter Visit [...] Documents on File Type Date Recorded Patient Pad Hand Expl anation POLST 07/13/2023 4:08 PM POLST [...] Discussed due to patient's condition Care Teams Body Finisher Relationship Specialty Start Date End Date Ray Royal MD [address] [place] [address] [place] [address] PCP - General Family Medicine 10/22/18 documented as of this encounter
--- OUTSIDE RECORDS SUMMARY | 2023-09-20 05:51 | External Medical Summary | Summary of Care ---
Author Name Unknown Organization [facility] Address [address] [place] [address] Phone [phone] Care Team Providers Care Structural Steel Fitter Name Role Phone Ray Royal MD Primary Care Provider [phone] Reason for Visit * Reason Comments Chemotherapy C12/D1 - FOLFIRINOX * Episode Based Medications (Routine) - Closed Specialty Diagnoses / Procedures Referred By Contac t Referred To Contact Diagnoses Adenocarcinoma of pancreas (HCC) Metastasis to liver (HCC) Encounter for antineoplastic chemotherapy Procedures MS LEUCOVORIN CALCIUM INJECTION MS FLUOROURACIL INJECTION MS IRINOTECAN INJECTION MS OXALIPLATIN MS FOSAPREPITANT INJECTION MS PEGFILGRASTIM-BMEZ (ZIEXTENZO), 0.5 MG MS INJECTION, PEGFILGRASTIM-CBQV, BIOSIMILAR, (UDENYCA), 0.5 MG MS PALONOSETRON HCL Teto Torrez MD [address] [place] [address] Anc Hem/Onc Scenejo-ann Driver DEPT CLOSED - 05/09/23 [address] [place] [address] Referral ID Status Reason Start Date Expiration Date Visits Re quested Visits Authorized [id number] Closed 12/01/2022 12/06/2023 999 99 Encounter Details Date Type Department Care Team (Latest Contact Info) Description 06/06/2023 9:00 AM EST Hem/Onc Treatment Hematology/Oncolog y Treatment, [place] [address] [place] [address] Neisha, Chair 3 Hem Onc Scenery [address] [place] [id number] Adenocarcinoma of pancreas (HCC)*; Metastasis to liver [...] mRNA, LNP-s, No Pre serve, 2-Dose Series (Eximia) 02/23/2021,02/02/2021 HEP A - Hepatitis A (Adult > 18 yrs) 09/21/2020, 02/10/2020 Hepatitis B, 20+ yrs 09/21/2020,03/23/2020,02/09 Pneumococcal Conjugate Vacci ne, 20-valent ([id number]) 10/26/2022(Deferred: Patient Refused) Pneumococcal Polysaccharide PPV23 (Pneumovax) [...] State Shawanda Driver [address] [place] [phone] [place], Lab Scene [address] [facility] [place] [address] 08/15/2023 11:15 AM EST Hem/Onc Treatment Hematology/Oncology Treatment, [place] 200 [facility], [place] [address] Neisha, Chair 4 Hem Onc [facility] [place] [address] 08/16/2023 10:45 AM EST Office Visit Orthopaedics [facility] [address] [facility] [place] [address] Judy Clay MD [address] [place] [address] 08/25/2023 9:45 AM EST Telemedicine Urology Luli Sanchez [address] [place] [address] [place] [address] Adolfo Key MD [address] [place] [address] [place] [address] 7, Telemed [facility] Urology Ex Rm 132 [facility] [place] [address] 08/29/2023 10:00 AM EST Laboratory Laboratory, [facility] 132 [facility] [place] [phone] [facility] 132 [facility] [place] [address] 08/30/2023 8:45 AM EST Office Visit Hematology/Oncology [facility] Neisha [place] [facility] [place] [address] Teto Torrez MD 200 [facility] [address] 08/30/2023 9:15 AM EST Hem/Onc Treatment Hematology/Oncology Treatment, [place] 200 [place] [address] Neisha, Chair 4 Hem Onc Scenery [address] [place] [address] 11/15/2023 11:30 AM EDT Office Visit Urology, [facility] [address] [place] [address] Adolfo Key MD 27 [facility] [address] [place] [address] Scheduled Procedures [...] this encounter Medical Devices Implanted Type Area Hospital Medical Assistant Device Identifier Shelf Expiration Date Model / Serial / Lot Port Implant W/8f Poly Cath - [id number] Implanted:Qty : 1 on 12/01/2022 by Brad Cerda DO at OR [facility] Right: Chest CR BARD : PERIPHERAL VASCULAR [id number] 02/24/2024 [id number] / / [id number] System Urolift - [id number] Implanted:Qty : 6 on 05/31/2023 by Adolfo Key MD at OR [facility] [employer] 09/01/2023 [id number] / / [id number] Description:prostate documented as of this encounter Visit [...] Documents on File Type Date Recorded Patient Split And Drum Room Supervisor Expl anation POLST 07/13/2023 4:08 PM POLST [...] Discussed due to patient's condition Care Teams Structural Steel Fitter Relationship Specialty Start Date End Date Ray Royal MD [address] [place] [address] [place] [address] PCP - General Family Medicine 10/22/18 documented as of this encounter
--- OUTSIDE RECORDS SUMMARY | 2023-09-20 05:51 | External Medical Summary | Summary of Care ---
Author Name Unknown Organization [facility] Address [address] [place] [address] Phone [phone] Care Team Providers Care Technical Data Analyst Name Role Phone Ray Royal MD Primary Care Provider [phone] Reason for Visit * Reason Comments Chemotherapy C12/D1 - FOLFIRINOX * Episode Based Medications (Routine) - Closed Specialty Diagnoses / Procedures Referred By Contac t Referred To Contact Diagnoses Adenocarcinoma of pancreas (HCC) Metastasis to liver (HCC) Encounter for antineoplastic chemotherapy Procedures CA LEUCOVORIN CALCIUM INJECTION CA FLUOROURACIL INJECTION CA IRINOTECAN INJECTION CA OXALIPLATIN CA FOSAPREPITANT INJECTION CA PEGFILGRASTIM-BMEZ (ZIEXTENZO), 0.5 MG CA INJECTION, PEGFILGRASTIM-CBQV, BIOSIMILAR, (UDENYCA), 0.5 MG CA PALONOSETRON HCL Teto Torrez MD [address] [place] [address] Anc Hem/Onc Scenery Neisha DEPT CLOSED - 05/09/23 [address] [place] [address] Referral ID Status Reason Start Date Expiration Date Visits Re quested Visits Authorized [id number] Closed 12/01/2022 12/06/2023 999 99 Encounter Details Date Type Department Care Team (Latest Contact Info) Description 06/06/2023 9:00 AM EST Hem/Onc Treatment Hematology/Oncolog y Treatment, [place] [address] [place] [address] Neisha, [...] mRNA, LNP-s, No Pre serve, 2-Dose Series ([employer]) 02/23/2021,02/02/2021 HEP A - Hepatitis A (Adult > 18 yrs) 09/21/2020, 02/10/2020 Hepatitis B, 20+ yrs 09/21/2020,03/23/2020,02/09 Pneumococcal Conjugate Vacci ne, 20-valent ([id number]) 10/26/2022(Deferred: Patient Refused) Pneumococcal Polysaccharide PPV23 (Pneumovax) [...] State Shawanda Driver [address] [place] [phone] [place], Lab Scenery [address] [place] [address] 08/15/2023 11:15 AM EST Hem/Onc Treatment Hematology/Oncology Treatment, [place] [address] [place], [place] [phone] Neisha, Chair 4 Hem Onc Scenery [address] [place] [address] 08/16/2023 10:45 AM EST Office Visit Orthopaedics [facility] [address] [facility] [place] [address] Judy Clay MD [address] [place] [address] 08/25/2023 9:45 AM EST Telemedicine Urology Luli Sanchez [address] [place] [address] [place] [address] Adolof Key MD [address] [place] [address] [place] [address] 7, Telemed [facility] Urology Ex Rm 132 [facility] [place] [address] 08/29/2023 10:00 AM EST Laboratory Laboratory, [facility] 132 [facility] [place] [phone] CardozaPatricio khan [facility] 132 [facility] [address] 08/30/2023 8:45 AM EST Office Visit Hematology/Oncology [facility] Neisha [place] [address] [place] [phone] Teto Torrez MD [address] [place] [address] 08/30/2023 9:15 AM EST Hem/Onc Treatment Hematology/Oncology Treatment, [place] [address] [place] [phone] Neisha, Chair 4 Hem Onc Scenery [address] [place] [address] 11/15/2023 11:30 AM EDT Office Visit Urology, [facility], [place] [address] [place] [address] Adolfo Key MD [address] [place] [address] [place] [address] Scheduled Procedures Name Priority Associated Diagnoses Date/Ti [...] this encounter Medical Devices Implanted Type Area Marketing Communications Assistant Device Identifier Shelf Expiration Date Model / Serial / Lot Port Implant W/8f Poly Cath - [id number] Implanted:Qty : 1 on 12/01/2022 by Brad Cerda DO at OR [facility] Right: Chest CR BARD : PERIPHERAL VASCULAR [id number] 02/24/2024 [id number] / / [id number] System Urolift - [id number] Implanted:Qty : 6 on 05/31/2023 by Adolfo Key MD at OR [facility] [employer] 09/01/2023 NU201-5 / / [id number] Description:prostate documented as of this encounter Visit [...] Documents on File Type Date Recorded Patient Maritime Guard Expl anation POLST 07/13/2023 4:08 PM POLST [...] Discussed due to patient's condition Care Teams Technical Data Analyst Relationship Specialty Start Date End Date Ray Royal MD [address] [place] [address] [place] [address] PCP - General Family Medicine 10/22/18 documented as of this encounter
--- OUTSIDE RECORDS SUMMARY | 2023-09-20 05:51 | External Medical Summary | Summary of Care ---
Author Name Unknown Organization [facility] Address [address] [place] [address] Phone [phone] Care Team Providers Care Desktop Support Specialist Name Role Phone Ray Royal MD Primary Care Provider [phone] Reason for Visit * Reason Comments Chemotherapy C12/D1 - FOLFIRINOX * Episode Based Medications (Routine) - Closed Specialty Diagnoses / Procedures Referred By Contac t Referred To Contact Diagnoses Adenocarcinoma of pancreas (HCC) Metastasis to liver (HCC) Encounter for antineoplastic chemotherapy Procedures AL LEUCOVORIN CALCIUM INJECTION AL FLUOROURACIL INJECTION AL IRINOTECAN INJECTION AL OXALIPLATIN AL FOSAPREPITANT INJECTION AL PEGFILGRASTIM-BMEZ (ZIEXTENZO), 0.5 MG AL INJECTION, PEGFILGRASTIM-CBQV, BIOSIMILAR, (UDENYCA), 0.5 MG AL PALONOSETRON HCL Teto Torrez MD [address] [place] [address] Anc Hem/Onc Scenejo-ann Driver DEPT CLOSED - 05/09/23 [address] [place] [address] Referral ID Status Reason Start Date Expiration Date Visits Re quested Visits Authorized [id number] Closed 12/01/2022 12/06/2023 999 99 Encounter Details Date Type Department Care Team (Latest Contact Info) Description 06/06/2023 9:00 AM EST Hem/Onc Treatment Hematology/Oncolog y Treatment, [place] [address] [place] [address] Neisha, Chair 3 Hem Onc Scenery [address] [place] [phone] Adenocarcinoma of pancreas (HCC)*; Metastasis to liver [...] mRNA, LNP-s, No Pre serve, 2-Dose Series (Exaptive) 02/23/2021,02/02/2021 HEP A - Hepatitis A (Adult > 18 yrs) 09/21/2020, 02/10/2020 Hepatitis B, 20+ yrs 09/21/2020,03/23/2020,02/09 Pneumococcal Conjugate Vacci ne, 20-valent ([id number]) 10/26/2022(Deferred: Patient Refused) Pneumococcal Polysaccharide PPV23 (Pneumovax) [...] State Shawanda Driver [address] [place] [phone] [place], Lab Scene [address] [facility] [place] [address] 08/15/2023 11:15 AM EST Hem/Onc Treatment Hematology/Oncology Treatment, [place] 200 [facility], [place] [address] Neisha, Chair 4 Hem Onc [facility] 200 [facility] [place] [address] 08/16/2023 10:45 AM EST Office Visit Orthopaedics [facility] [address] [facility] [place] [address] Judy Clay MD [address] [place] [address] 08/25/2023 9:45 AM EST Telemedicine Urology Luli Sanchez [address] [place] [address] [place] [address] Adolfo Key MD [address] [place] [address] [place] [address] 7, Telemed [facility] Urology Ex Rm 132 [facility] [place] [address] 08/29/2023 10:00 AM EST Laboratory Laboratory, [facility] 132 [facility] [place] [phone] [facility] 132 [facility] [place] [address] 08/30/2023 8:45 AM EST Office Visit Hematology/Oncology [facility] Neisha [place] 200 [facility] [place] [address] Teto Torrez MD 200 [facility] [address] 08/30/2023 9:15 AM EST Hem/Onc Treatment Hematology/Oncology Treatment, [place] 200 [facility] [place] [address] Neisha, Chair 4 Hem Onc Scenery [address] [facility] [place] [address] 11/15/2023 11:30 AM EDT Office Visit Urology, [facility] [address] [place] [address] Adolfo Key MD 27 [facility] [address] [place] [address] Scheduled Procedures [...] this encounter Medical Devices Implanted Type Area Waiver Analyst Device Identifier Shelf Expiration Date Model / Serial / Lot Port Implant W/8f Poly Cath - [id number] Implanted:Qty : 1 on 12/01/2022 by Brad Cerda DO at OR [facility] Right: Chest CR BARD : PERIPHERAL VASCULAR [id number] 02/24/2024 [id number] / / [id number] System Urolift - [id number] Implanted:Qty : 6 on 05/31/2023 by Adolfo Key MD at OR [facility] [employer] 09/01/2023 WS731-9 / / [id number] Description:prostate documented as of this encounter Visit [...] Documents on File Type Date Recorded Patient Acidizer Helper Expl anation POLST 07/13/2023 4:08 PM POLST [...] Discussed due to patient's condition Care Teams Desktop Support Specialist Relationship Specialty Start Date End Date Ray Royal MD [address] [place] [address] [place] [address] PCP - General Family Medicine 10/22/18 documented as of this encounter
--- OUTSIDE RECORDS SUMMARY | 2023-09-20 05:51 | External Medical Summary | Summary of Care ---
Author Name Unknown Organization [facility] Address [address] [place] [address] Phone [phone] Care Team Providers Care Education Administrator Name Role Phone Ray Royal MD Primary Care Provider [phone] Reason for Visit * Reason Comments Chemotherapy C12/D1 - FOLFIRINOX * Episode Based Medications (Routine) - Closed Specialty Diagnoses / Procedures Referred By Contac t Referred To Contact Diagnoses Adenocarcinoma of pancreas (HCC) Metastasis to liver (HCC) Encounter for antineoplastic chemotherapy Procedures MO LEUCOVORIN CALCIUM INJECTION MO FLUOROURACIL INJECTION MO IRINOTECAN INJECTION MO OXALIPLATIN MO FOSAPREPITANT INJECTION MO PEGFILGRASTIM-BMEZ (ZIEXTENZO), 0.5 MG MO INJECTION, PEGFILGRASTIM-CBQV, BIOSIMILAR, (UDENYCA), 0.5 MG MO PALONOSETRON HCL Teto Torrez MD [address] [place] [address] Anc Hem/Onc Scenejo-ann Driver DEPT CLOSED - 05/09/23 [address] [place] [address] Referral ID Status Reason Start Date Expiration Date Visits Re quested Visits Authorized [id number] Closed 12/01/2022 12/06/2023 999 99 Encounter Details Date Type Department Care Team (Latest Contact Info) Description 06/06/2023 9:00 AM EST Hem/Onc Treatment Hematology/Oncolog y Treatment, [place] [address] [place] [address] Neisha, Chair 3 Hem Onc Scenery [address] [place] [phone] Adenocarcinoma of pancreas (HCC)*; Metastasis to liver [...] mRNA, LNP-s, No Pre serve, 2-Dose Series (ecomom) 02/23/2021,02/02/2021 HEP A - Hepatitis A (Adult > 18 yrs) 09/21/2020, 02/10/2020 Hepatitis B, 20+ yrs 09/21/2020,03/23/2020,02/09 Pneumococcal Conjugate Vacci ne, 20-valent (Shrkdcl65) 10/26/2022(Deferred: Patient Refused) Pneumococcal Polysaccharide PPV23 (Pneumovax) [...] State Shawanda Driver [address] [place] [phone] [place], Lab Scene [address] [facility] [place] [address] 08/15/2023 11:15 AM EST Hem/Onc Treatment Hematology/Oncology Treatment, [place] 200 [facility], [place] [address] Neisha, Chair 4 Hem Onc [facility] 200 [facility] [place] [address] 08/16/2023 10:45 AM EST Office Visit Orthopaedics [facility] [address] [facility] [place] [address] Judy Clay MD [address] [place] [address] 08/25/2023 9:45 AM EST Telemedicine Urology Luli Sanchez [address] [place] [address] [place] [address] Adolfo Key MD [address] [place] [address] [place] [address] 7, Telemed [facility] Urology Ex Rm 132 [facility] [place] [address] 08/29/2023 10:00 AM EST Laboratory Laboratory, [facility] 132 [facility] [place] [phone] [facility] 132 [facility] [place] [address] 08/30/2023 8:45 AM EST Office Visit Hematology/Oncology [facility] Neisha [place] 200 [facility] [place] [address] Teto Torrez MD 200 [facility] [address] 08/30/2023 9:15 AM EST Hem/Onc Treatment Hematology/Oncology Treatment, [place] 200 [place] [address] Neisha, Chair 4 Hem Onc Scenery [address] [place] [place] [address] 11/15/2023 11:30 AM EDT Office Visit Urology, [facility] [address] [place] [address] Adolfo Key MD 27 [facility] [address] [place] [address] Scheduled Procedures [...] this encounter Medical Devices Implanted Type Area Preschool Aide Device Identifier Shelf Expiration Date Model / Serial / Lot Port Implant W/8f Poly Cath - [id number] Implanted:Qty : 1 on 12/01/2022 by Brad Cerda DO at OR [facility] Right: Chest CR BARD : PERIPHERAL VASCULAR [id number] 02/24/2024 [id number] / / [id number] System Urolift - [id number] Implanted:Qty : 6 on 05/31/2023 by Adolfo Key MD at OR [facility] [employer] 09/01/2023 ZO513-8 / / [id number] Description:prostate documented as of this encounter Visit [...] Documents on File Type Date Recorded Patient Passenger Relations Representative Expl anation POLST 07/13/2023 4:08 PM [...] Discussed due to patient's condition Care Teams Education Administrator Relationship Specialty Start Date End Date Ray Royal MD [address] [place] [address] [place] [address] PCP - General Family Medicine 10/22/18 documented as of this encounter
--- OUTSIDE RECORDS SUMMARY | 2023-09-20 05:51 | External Medical Summary | Summary of Care ---
Author Name Unknown Organization [facility] Address [address] [place] [address] Phone [phone] Care Team Providers Care Gelatin Dynamite Packing Operator Name Role Phone Ray Royal MD Primary Care Provider [phone] Reason for Visit * Reason Comments Chemotherapy [...] PALONOSETRON HCL Teto Torrez MD [address] [place] [address] Anc Hem/Onc Scenejo-ann Driver DEPT CLOSED - 05/09/23 [address] [place] [address] Referral ID Status Reason Start Date Expiration Date Visits Re quested Visits Authorized [id number] Closed 12/01/2022 12/06/2023 999 99 Encounter Details Date Type Department Care Team (Latest Contact Info) Description 06/06/2023 9:00 AM EST Hem/Onc Treatment Hematology/Oncolog y Treatment, [place] [address] [place] [address] Neisha, Chair 3 Hem Onc Scenery [address] [place] [phone] Adenocarcinoma of pancreas (HCC)*; Metastasis to liver [...] mRNA, LNP-s, No Pre serve, 2-Dose Series ([employer]) 02/23/2021,02/02/2021 HEP A - Hepatitis A (Adult > 18 yrs) 09/21/2020, 02/10/2020 Hepatitis B, 20+ yrs 09/21/2020,03/23/2020,02/09 Pneumococcal Conjugate Vacci ne, 20-valent ([id number]) 10/26/2022(Deferred: Patient Refused) Pneumococcal Polysaccharide PPV23 (Pneumovax) [...] State Shawanda Driver [address] [place] [phone] [place], Lab Scene [address] [facility] [place] [address] 08/15/2023 11:15 AM EST Hem/Onc Treatment Hematology/Oncology Treatment, [place] 200 [facility], [place] [address] Neisha, Chair 4 Hem Onc [facility] 200 [facility] [place] [address] 08/16/2023 10:45 AM EST Office Visit Orthopaedics [facility] [address] [facility] [place] [address] Judy Clay MD [address] [place] [address] 08/25/2023 9:45 AM EST Telemedicine Urology Luli Sanchez [address] [place] [address] [place] [address] Adolfo Key MD [address] [place] [address] [place] [address] 7, Telemed [facility] Urology Ex Rm 132 [facility] [place] [address] 08/29/2023 10:00 AM EST Laboratory Laboratory, [facility] 132 [facility] [place] [phone] [facility] [place] [facility] 132 [facility] [place] [address] 08/30/2023 8:45 AM EST Office Visit Hematology/Oncology [facility] Neisha [place] 200 [facility] [place] [address] Teto Torrez MD 200 [facility] [address] 08/30/2023 9:15 AM EST Hem/Onc Treatment Hematology/Oncology Treatment, [place] 200 [place] [address] Neisha, Chair 4 Hem Onc Scenery [address] [place] [facility] [address] 11/15/2023 11:30 AM EDT Office Visit Urology, [facility] [address] [place] [address] Adolfo Key MD [address] [facility] [address] [place] [address] [...] this encounter Medical Devices Implanted Type Area Housing Coordinator Device Identifier Shelf Expiration Date Model / Serial / Lot Port Implant W/8f Poly Cath - [id number] Implanted:Qty : 1 on 12/01/2022 by Brad Cerda DO at OR [facility] Right: Chest CR BARD : PERIPHERAL VASCULAR [id number] 02/24/2024 [id number] / / [id number] System Urolift - [id number] Implanted:Qty : 6 on 05/31/2023 by Adolfo Key MD at OR [facility] [employer] 09/01/2023 FY779-5 / / [id number] Description:prostate documented as of this encounter Visit [...] on File Type Date Recorded Patient Technical Aide Expl anation POLST 07/13/2023 4:08 PM POLST [...] Discussed due to patient's condition Care Teams Gelatin Dynamite Packing Operator Relationship Specialty Start Date End Date Ray Royal MD [address] [place] [address] [place] [address] PCP - General Family Medicine 10/22/18 documented as of this encounter
--- OUTSIDE RECORDS SUMMARY | 2023-09-20 05:51 | External Medical Summary | Summary of Care ---
Author Name Unknown Organization [facility] Address [address] [place] [address] Phone [phone] Care Team Providers Care Junior Graphic Designer Name Role Phone Ray Royal MD Primary Care Provider [phone] Reason for Visit * Reason Comments Chemotherapy C12/D1 - FOLFIRINOX * Episode Based Medications (Routine) - Closed Specialty Diagnoses / Procedures Referred By Contac t Referred To Contact Diagnoses Adenocarcinoma of pancreas (HCC) Metastasis to liver (HCC) Encounter for antineoplastic chemotherapy Procedures OR LEUCOVORIN CALCIUM INJECTION OR FLUOROURACIL INJECTION OR IRINOTECAN INJECTION OR OXALIPLATIN OR FOSAPREPITANT INJECTION OR PEGFILGRASTIM-BMEZ (ZIEXTENZO), 0.5 MG OR INJECTION, PEGFILGRASTIM-CBQV, BIOSIMILAR, (UDENYCA), 0.5 MG OR PALONOSETRON HCL Teto Torrez MD [address] [place] [address] Anc Hem/Onc Scenejo-ann Driver DEPT CLOSED - 05/09/23 [address] [place] [address] Referral ID Status Reason Start Date Expiration Date Visits Re quested Visits Authorized [id number] Closed 12/01/2022 12/06/[phone] Encounter Details Date Type Department Care Team (Latest Contact Info) Description 06/06/2023 9:00 AM EST Hem/Onc Treatment Hematology/Oncolog y Treatment, [place] [address] [place] [address] Neisha, Chair 3 Hem Onc Scenery [address] [place] [id number] Adenocarcinoma of pancreas (HCC)*; Metastasis to liver [...] mRNA, LNP-s, No Pre serve, 2-Dose Series ([employer]) 02/23/2021,02/02/2021 HEP A - Hepatitis A (Adult > 18 yrs) 09/21/2020, 02/10/2020 Hepatitis B, 20+ yrs 09/21/2020,03/23/2020,02/09 Pneumococcal Conjugate Vacci ne, 20-valent ([id number]) 10/26/2022(Deferred: Patient Refused) Pneumococcal Polysaccharide PPV23 (Pneumovax) [...] documented in this encounter Nursing Notes * Elhma Mcdowell RN - 06/06/2023 4:22 PM EST [...] State Shawanda Driver [address] [place] [phone] [place], Lab Scene [address] [facility] [place] [address] 08/15/2023 11:15 AM EST Hem/Onc Treatment Hematology/Oncology Treatment, [place] 200 [facility], [place] [address] Neisha, Chair 4 Hem Onc [facility] 200 [facility] [place] [address] 08/16/2023 10:45 AM EST Office Visit Orthopaedics [facility] [address] [facility] [place] [address] Judy Clay MD [address] [place] [address] 08/25/2023 9:45 AM EST Telemedicine Urology Luli Sanchez [address] [place] [address] Adolfo Key MD [address] [place] [address] 7, Telemed [facility] Urology Ex Rm 132 [facility] [place] [address] 08/29/2023 10:00 AM EST Laboratory Laboratory, [facility] 132 [facility] [place] [phone] [facility] 132 [facility] [place] [address] 08/30/2023 8:45 AM EST Office Visit Hematology/Oncology [facility] Neisha [place] 200 [facility] [place] [address] Teto Torrez MD 200 [facility] [address] 08/30/2023 9:15 AM EST Hem/Onc Treatment Hematology/Oncology Treatment, [place] 200 [place] [address] Neisha, Chair 4 Hem Onc Scenery [address] [facility] [place] [address] 11/15/2023 11:30 AM EDT Office Visit Urology, [facility] [address] [place] [address] Adolfo Key MD 27 [facility] [address] [place] [address] Scheduled [...] this encounter Medical Devices Implanted Type Area Cattery Operator Device Identifier Shelf Expiration Date Model / Serial / Lot Port Implant W/8f Poly Cath - [id number] Implanted:Qty : 1 on 12/01/2022 by Brad Cerda DO at OR [facility] Right: Chest CR BARD : PERIPHERAL VASCULAR [id number] 02/24/2024 [id number] / / [id number] System Urolift - [id number] Implanted:Qty : 6 on 05/31/2023 by Adolfo Key MD at OR [facility] [employer] 09/01/2023 [id number] / / [id number] Description:prostate documented as of this encounter Visit [...] Documents on File Type Date Recorded Patient Counselling Psychologist Expl anation POLST 07/13/2023 4:08 PM POLST [...] Discussed due to patient's condition Care Teams Junior Graphic Designer Relationship Specialty Start Date End Date Ray Royal MD [address] [place] [address] [place] [address] PCP - General Family Medicine 10/22/18 documented as of this encounter
--- OUTSIDE RECORDS SUMMARY | 2023-09-20 05:51 | External Medical Summary | Summary of Care ---
Author Name Unknown Organization [facility] Address [address] [place] [address] Phone [phone] Care Team Providers Care Metropolitan Editor Name Role Phone Ray Royal MD Primary Care Provider [phone] Reason for Visit * Reason Comments Chemotherapy C12/D1 - FOLFIRINOX * Episode Based Medications (Routine) - Closed Specialty Diagnoses / Procedures Referred By Contac t Referred To Contact Diagnoses Adenocarcinoma of pancreas (HCC) Metastasis to liver (HCC) Encounter for antineoplastic chemotherapy Procedures [place] LEUCOVORIN CALCIUM INJECTION NC FLUOROURACIL INJECTION NC IRINOTECAN INJECTION NC OXALIPLATIN NC FOSAPREPITANT INJECTION NC PEGFILGRASTIM-BMEZ (ZIEXTENZO), 0.5 MG NC INJECTION, PEGFILGRASTIM-CBQV, BIOSIMILAR, (UDENYCA), 0.5 MG NC PALONOSETRON HCL Teto Torrez MD [address] [place] [address] Anc Hem/Onc Scenejo-ann Driver DEPT CLOSED - 05/09/23 [address] [place] [address] Referral ID Status Reason Start Date Expiration Date Visits Re quested Visits Authorized [id number] Closed 12/01/2022 12/06/2023 999 99 Encounter Details Date Type Department Care Team (Latest Contact Info) Description 06/06/2023 9:00 AM EST Hem/Onc Treatment Hematology/Oncolog y Treatment, [place] [address] [place] [address] Neisha, Chair 3 Hem Onc Scenery [address] [place] [phone] Adenocarcinoma of pancreas (HCC)*; Metastasis to liver [...] mRNA, LNP-s, No Pre serve, 2-Dose Series ([employer]) 02/23/2021,02/02/2021 HEP A - Hepatitis A (Adult > 18 yrs) 09/21/2020, 02/10/2020 Hepatitis B, 20+ yrs 09/21/2020,03/23/2020,02/09 Pneumococcal Conjugate Vacci ne, 20-valent (Mrbskcp38) 10/26/2022(Deferred: Patient Refused) Pneumococcal Polysaccharide PPV23 (Pneumovax) [...] State Shawanda Driver [address] [place] [phone] [place], Lab Scene [address] [facility] [place] [address] 08/15/2023 11:15 AM EST Hem/Onc Treatment Hematology/Oncology Treatment, [place] 200 [facility], [place] [address] Neisha, Chair [address] [facility] 200 [facility] [place] [address] 08/16/2023 10:45 AM EST Office Visit Orthopaedics [facility] [address] [facility] [place] [address] Judy Clay MD [address] [place] [address] 08/25/2023 9:45 AM EST Telemedicine Urology Luli Sanchez [address] [place] [address] Adolfo Key MD [address] [place] [address] 7, Telemed [facility] Urology Ex Rm 132 [facility] [place] [address] 08/29/2023 10:00 AM EST Laboratory Laboratory, [facility] 132 [facility] [place] [phone] [facility] 132 [facility] [place] [address] 08/30/2023 8:45 AM EST Office Visit Hematology/Oncology [facility] Neisha [place] 200 [facility] [place] [address] Teto Torrez MD 200 [facility] [address] 08/30/2023 9:15 AM EST Hem/Onc Treatment Hematology/Oncology Treatment, [place] 200 [place] [address] Neisha, Chair 4 Hem Onc Scenery [address] [place] [address] 11/15/2023 11:30 AM EDT Office Visit Urology, [facility] [address] [place] [address] Adolfo Key MD 27 [facility] [address] [place] [address] [...] this encounter Medical Devices Implanted Type Area Logger Device Identifier Shelf Expiration Date Model / Serial / Lot Port Implant W/8f Poly Cath - [id number] Implanted:Qty : 1 on 12/01/2022 by Brad Cerda DO at OR [facility] Right: Chest CR BARD : PERIPHERAL VASCULAR [id number] 02/24/2024 [id number] / / [id number] System Urolift - [id number] Implanted:Qty : 6 on 05/31/2023 by Adolfo Key MD at OR [facility] [employer] 09/01/2023 [id number] / / [id number] Description:prostate documented as of this encounter Visit [...] Documents on File Type Date Recorded Patient Hand Box Folder Expl anation POLST 07/13/2023 4:08 PM POLST [...] Discussed due to patient's condition Care Teams Metropolitan Editor Relationship Specialty Start Date End Date Ray Royal MD [address] [place] [address] [place] [address] PCP - General Family Medicine 10/22/18 documented as of this encounter
--- OUTSIDE RECORDS SUMMARY | 2023-09-20 05:52 | External Medical Summary | Summary of Care ---
Author Name Unknown Organization [facility] Address [address] [place] [address] Phone [phone] Care Team Providers Care Pressurization Mechanic Name Role Phone Ray Royal MD Primary Care Provider [phone] Reason for Visit * Reason Onset Date Comments Appointment 08/09/2023 Encounter Details Date Type Department Care Team (Late st Contact Info) Description 08/09/[address] [facility] [address] [place] [address] Judy Clay MD [address] [place] [address] Appointment Allergies No known active allergiesdocumented as of this encounter (statuses as of 08/09/2023) Medications Medication Sig Dispensed Refills Start Date [...] as of this encounter (statuses as of 08/09/2023) Active Problems Problem Noted Date Diagnosed Date [...] as of this encounter (statuses as of 08/09/2023) Immunizations Name Administration Dates Next Due COVID-19 mRNA, LNP-s, No Pre serve, 2-Dose Series ([employer]) 02/23/2021,02/02/2021 HEP A - Hepatitis A (Adult > 18 yrs) 09/21/2020, 02/10/2020 Hepatitis B, 20+ yrs 09/21/2020,03/23/2020,02/09 Pneumococcal Conjugate Vacci ne, 20-valent (Rhghlbm65) 10/26/2022(Deferred: Patient Refused) Pneumococcal Polysaccharide PPV23 (Pneumovax) [...] encounter Miscellaneous Notes * Telephone Encounter - Carmelita Martel OSA - 08/09/2023 9:40 AM EST Called Brad to let him know his new appt is now 08/16, he was okay with this. documented in this encounter Plan of Treatment Upcoming Encounters Date Type Department Care Team (Late st Contact Info) Description 08/15/2023 10:20 AM EST Laboratory Laboratory [facility] 200 [facility] [place] [phone] [place], Lab [facility] 200 [facility] [place] [address] 08/15/2023 11:15 AM EST Hem/Onc Treatment Hematology/Oncology Treatment, [place] [address] [place] [address] Neisha, Chair 8 Hem Onc [facility] [address] [place] [address] 08/16/2023 10:45 AM EST Office Visit Orthopaedics [facility] 132 [place] [address] Judy Clay MD 132 [place] [address] 08/25/2023 9:45 AM EST Telemedicine Urology Luli Sanchez [address] [place] [address] Adolfo Key MD [address] [place] [address] 7, Telemed [facility] Urology Ex Rm 132 [facility] [place] [address] 08/29/2023 10:00 AM EST Laboratory Laboratory, [facility] 132 [facility] [phone] [facility] 132 [facility] [place] [address] 08/30/2023 8:45 AM EST Office Visit Hematology/Oncology [facility] 200 [facility] [place] [address] Teto Torrez MD 200 [facility] [place] [address] 08/30/2023 9:15 AM EST Hem[facility] [address] [place], [place] [address] Neisha, Chair 4 Hem Onc [facility] 200 [facility] [place] [address] 11/15/2023 11:30 AM EDT Office Visit Urology, [facility] 132 [facility] [place] [address] Adolfo Key MD [address] [place] [address] Scheduled Procedures Name Priority Associated Diagnoses Date/Ti me COLONOSCOPY FLEXIBLE PROXIMAL DIAGNOSTIC Recall History of colon polyps Health Maintenance Due Date Last Done Comments HIV Screening 1975 Depression Screening 09/29/2020 09/30/2019 COVID-19 Vaccine (3 - Pfizer risk series) 03/23/2021 02/23/2021, 02/02/2021 Pneumococcal Vaccine: Pediatrics (0 to 5 Years) and At-Risk Patients (6 to 64 Years) (2 - PCV) 05/10/2022 05/10/2021 GFR 08/08/2024 08/08/2023, [...] this encounter Medical Devices Implanted Type Area Taxicab Dispatcher Device Identifier Shelf Expiration Date Model / Serial / Lot Port Implant W/8f Poly Cath - [id number] Implanted:Qty : 1 on 12/01/2022 by Brad Cerda, at OR [facility] Right: Chest CR BARD : PERIPHERAL VASCULAR [id number] 02/24/2024 [id number] / / [id number] System Urolift - [id number] Implanted:Qty : 6 on 05/31/2023 by Adolfo Key MD at OR [facility] [employer] 09/01/2023 [id number] / / [id number] Description:prostate documented as of this encounter Advance Directives Documents on File Type Date Recorded 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
--- OUTSIDE RECORDS SUMMARY | 2023-09-20 05:52 | External Medical Summary | Summary of Care ---
Author Name Unknown Organization [facility] Address [address] [place] [address] Phone [phone] Care Team Providers Care Director Title Name Role Phone Ray Royal MD Primary Care Provider [phone] Reason for Visit * Reason Comments IV Therapy Hydration Procedure Pump d/c * Episode Based Medications (Routine) - Closed Specialty Diagnoses / Procedures Referred By Contac t Referred To Contact Diagnoses Adenocarcinoma of pancreas (HCC) Metastasis to liver (HCC) Encounter for antineoplastic chemotherapy Procedures [place] LEUCOVORIN CALCIUM INJECTION PA FLUOROURACIL INJECTION PA IRINOTECAN INJECTION PA OXALIPLATIN PA FOSAPREPITANT INJECTION PA PEGFILGRASTIM-BMEZ (ZIEXTENZO), 0.5 MG PA INJECTION, PEGFILGRASTIM-CBQV, BIOSIMILAR, (UDENYCA), 0.5 MG PA PALONOSETRON HCL Teto Torrez MD [address] [place] [address] Anc Hem/Onc Scenejo-ann Driver DEPT CLOSED - 05/09/23 [address] [place] [address] Referral ID Status Reason Start Date Expiration Date Visits Re quested Visits Authorized [id number] Closed 12/01/2022 12/06/2023 999 99 Encounter Details Date Type Department Care Team (Latest Contact Info) Description 06/08/2023 12:30 PM EST Hem/Onc Treatment Hematology/Oncolog y Treatment, [place] [address] [place] [address] Neisha, Chair 10 Hem Onc Scenery [address] [place] [address] Adenocarcinoma of pancreas (HCC)*; Metastasis to liver (HCC); Encounter for antineoplastic chemotherapy; Hypomagnesemia Allergies No known active allergiesdocumented as of this encounter (statuses as of 08/12/2023) Medications Medication Sig Dispensed Refills Start Date [...] as of this encounter (statuses as of 08/12/2023) Active Problems Problem Noted Date Diagnosed Date Food insecurity 06/05/2023 Overview: Per [facility] Protocol Urethral stricture 04/03/2023 Slow [...] as of this encounter (statuses as of 08/12/2023) Immunizations Name Administration Dates Next Due COVID-19 mRNA, LNP-s, No Pre serve, 2-Dose Series ([employer]) 02/23/2021,02/02/2021 HEP A - Hepatitis A (Adult > 18 yrs) 09/21/2020, 02/10/2020 Hepatitis B, 20+ yrs 09/21/2020,03/23/2020,02/09 Pneumococcal Conjugate Vacci ne, 20-valent (Zrbfpid92) 10/26/2022(Deferred: Patient Refused) Pneumococcal Polysaccharide PPV23 (Pneumovax) [...] Sign Reading Time Taken Comments Blood Pressure 111/75 06/08/2023 12:30 PM EST Pulse 80 06/08/2023 12:30 PM EST Temperature 36.3 C (97.3 F) 06/08/2023 12:[address] Respiratory Rate 18 06/08/2023 12:30 PM EST Oxygen Saturation 97% 06/08/2023 12:30 PM EST Inhaled Oxygen Concentration - - Weight - - Height - - Body Mass Index - - documented in this encounter Nursing Notes * Elham Mcdowell RN - 06/08/2023 4:37 PM EST Chair 10. Patient arrived today s/p 46 hours of 5FU infusion. Port flushed with NSS, blood return noted. Patient noticed pump itself was leaking when he got home when he noticed the bag was wet with chemo, didnot want to drive back to facility. Patient put pump in ziplock bag and monitored it, brought here in bag that was given to him in addition to ziplock bag. Patient educated he should have reached outor come back, patient aware and did not want to do this but says he will try next time. It seems like patient received most of medication since there was not much in the ziplock bag, pump is empty upon assessment. Magnesium level drawn via port per Dr. Torrez, magnesium WNL. Hydration infusing. Overall patient feels well today and only had some small amount of diarrhea last night. Will assessneed for IVF for future tx. Safety and Risk for Injury Patient will [...] Description 08/15/2023 10:20 AM EST Laboratory Laboratory [address] [place] [phone] Neisha, Lab [address] [facility] [place] [address] 08/15/2023 11:15 AM EST Hem/Onc Treatment Hematology/Oncology Treatment, [place] [address] [address] Neisha, Chair 4 Hem Onc [address] [place] [address] 08/16/2023 10:45 AM EST Office Visit Orthopaedics [facility] 132 [facility] [place], [place] [address] Judy Clay MD 132 [facility] [address] 08/25/2023 9:45 AM EST Telemedicine Urology Selina Luli Glass [address] [place] [address] [place] [address] Adolfo Key MD [address] [place] [address] 7, Telemed [facility] Urology Ex Rm 132 [facility] [place], [place] [address] 08/29/2023 10:00 AM EST Laboratory Laboratory, [facility] 132 [place] [phone] [facility] 132 [facility], [place] [address] 08/30/2023 8:45 AM EST Office Visit [facility]ematology[facility] 200 [facility] [address] Teto Torrez MD [address] [facility], [place] [address] 08/30/2023 9:15 AM EST Hem[facility] [address] [place] [address] Neisha, Chair 4 Hem Onc [facility] 200 [facility] [place] [address] 11/15/2023 11:30 AM EDT Office Visit Urology, [facility] 132 [facility] [place] [address] Adolfo Key MD [address] [place] [address] Scheduled Procedures Name Priority Associated Diagnoses Date/Ti [...] this encounter Medical Devices Implanted Type Area Factory Manager Device Identifier Shelf Expiration Date Model / Serial / Lot Port Implant W/8f Poly Cath - [id number] Implanted:Qty : 1 on 12/01/2022 by Brad Cerda DO at OR [facility] Right: Chest CR BARD : PERIPHERAL VASCULAR [id number] 02/24/2024 [id number] / / [id number] System Urolift - [id number] Implanted:Qty : 6 on 05/31/2023 by Adolfo Key MD at OR [facility] [employer] 09/01/2023 [id number] / / [id number] Description:prostate documented as of this encounter Procedures Procedure Name Priority Date/Time Associated Diagnosis Comments MAGNESIUM STAT 06/08/2023 12:01 PM EST Hypomagnesemia documented in this encounter Results * MAGNESIUM (06/08/2023 12:01 PM EST) Magnesium 1.7 1.5 - 2.6 mg/dL 06/08/2023 12:28 PM EST LABORATORY [facility] 56-02 Blood Venous blood specimen / Unknown Venipuncture / Unknown 06/08/2023 12:01 PM EST 06/08/2023 12:05 PM EST Rachel Adelina DRAKE LAB BLOOD ORDER [facility] 56-02 [address] [place] [address] documented in this encounter Visit Diagnoses Diagnosis Adenocarcinoma of pancreas (HCC)- Primary Malignant neoplasm of pancreas, part unspecified Metastasis to liver (HCC) Secondary malignant neoplasm of liver Encounter for antineoplastic chemotherapy Hypomagnesemia Disorders of magnesium metabolism documented in this encounter Administered Medications Inactive Administered Medications - up to 3 most recent administrations Medication Order MAR Action Action Date Dose Rate Site hEParin 100 UNIT/ML Lock Flush inj 500 Units 500 Units (5 mL), IV Lock, PRN Other, IV Flush, Starting on Radha 06/08/23 at 1156, Until Radha 06/08/23 at 2042, For 24 hours, Do not flush if lock, PICC, or central line not in place; IV infusing or unable to flush. Given 06/08/2023 1:45 PM EST 500 Units NSS infusion FOR HYDRATION Intravenous, at 500 mL/hr Administer over 2 Hours, ONCE, 1 dose, On Radha 06/08/23 at 1230 Start Infusion 06/08/2023 11:56 AM EST 1,000 mL 500 mL/hr sodium chloride 0.9 % flush central line 10 mL 10 mL, IV Push, PRN Other, IV Flush, Starting on Radha 06/08/23 at 1156, Until Radha 06/08/23 at 2042, For 24 hours, Do not flush if lock, PICC, or central line not in place; IV infusing or unable to flush. Given 06/08/2023 1:45 PM EST 10 mL documented in this encounter Advance Directives Documents on File Type Date Recorded Patient Cell Preparer Expl anation POLST 07/13/2023 4:08 PM POLST [...] due to patient's condition Care Teams Director Title Relationship Specialty Start Date End Date Ray Royal MD [address] [place] [address] [place] [address] PCP - General Family Medicine 10/22/18 documented as of this encounter
--- OUTSIDE RECORDS SUMMARY | 2023-09-20 05:52 | External Medical Summary | Summary of Care ---
Author Name Unknown Organization [facility] Address [address] [place] [address] Phone [phone] Care Team Providers Care Canceling Machine Operator Name Role Phone Ray Royal MD Primary Care Provider [phone] Reason for Referral * Social Care (Within 10 days (routine)) - Pending Review Specialty Diagnoses / Procedures Referred By Mike velázquez Referred To Contact Airline Stewardess Diagnoses Adenocarcinoma of pancreas (HCC) Cancer related pain Encounter for palliative care Constipation due to pain medication Shante Prado MD [address] [place] [address] Referral ID Status Reason Start Date Expiration Date Visits Requested Visits Authorized [id number] Pending Review Specialty Services Required 08/09/2023 999 999 Question Answer Referral Priority Within 10 days (routine) Where should this appointment be scheduled? [facility] Role Premium Note Interest Calculator Clerk Referring Reason: Coordinate Cancer Resources Comments Is patient being transitioned from [facility] to Complex Case Management? No Please contact patient to assist with any resources Home health referral was also placed, but patient not homebound. Could you see if he would qualify for home health? * Evaluate & Treat - Unlimited Visits (Within 10 days (routine)) - Pending Review Specialty Diagnoses / Procedures Referred By Mike velázquez Referred To Contact HOME CARE / Home Care Diagnoses Adenocarcinoma of pancreas (HCC) Shante Prado MD [address] [place] [address] Referral ID Status Reason Start Date Expiration Date Visits Requested Visits Authorized [id number] Pending Review Specialty Services Required 08/09/2023 999 999 Question Answer Referral Priority Within 10 days (routine) Where should this appointment be scheduled? [facility] Documentation of Wrgt-bn-Qvmz Encounter Addendum Patient Name: Brad Holm I certify that this patient is under my care and that I, or a nurse practitioner or physician's assistant plant manager working with me, had a ogbc-uv-ynpg encounter that meets the physician cgki-lf-twvr encounter requirements with this patient on: 08/09/2023 The encounter with the patient was in whole, or in part, for the following medical condition, which is the primary reason for home health care (List medical condition): Pancreatic CA Medication management I certify that, based on my findings, the following services are medically necessary home health services: Nursing To provide the following care/treatments: (All hospitalists not following the patient after discharge should complete this section): Nursing management - BP monitoring, med management Primary Care Physician to follow home care plan of care after discharge: Dr Solomon My clinical findings support the need for the above services because: Pt lives alone, has low BP after chemo, not managing meds appropriately Further, I certify that my clinical findings support that this patient is homebound (i.e. Absences from home require considerable and taxing effort and are for medical reasons or faith services or infrequently or of short duration when for other reason) because: Pt has declined from underlying cancer diagnosis and recent chemo infusions. BP lower than before. Physician Signature: Date of Signature: Physician Printed Name: Shante Prado MD Reason for Visit * Reason Comments Follow Up Encounter Details Date Type Department Care Team (Late st Contact Info) Description 08/09/2023 8:30 AM EST Office Visit Palliative Medicine [facility] [address] [place] [address] Shante Prado MD [address] [place] [address] [place] [address] Adenocarcinoma of pancreas (HCC)*; Cancer related pain; Encounter for palliative care; Constipation due to pain medication Allergies No known active allergiesdocumented as of [...] mRNA, LNP-s, No Pre serve, 2-Dose Series (Pfizer) 02/23/2021,02/02/2021 HEP A - Hepatitis A (Adult > 18 yrs) 09/21/2020, 02/10/2020 Hepatitis B, 20+ yrs 09/21/2020,03/23/2020,02/09 Pneumococcal Conjugate Vacci ne, 20-valent ([id number]) 10/26/2022(Deferred: Patient Refused) Pneumococcal Polysaccharide PPV23 (Pneumovax) 05/10/2021 Seasonal Influenza, PF, 6 M & above, IM , (FluLaval or Fluzone) 03/13/2023,03/24/2022,05/10/2021,05/24 TDAP (age 10 and older)(Boostrix) 11/12/2021,11/2018 Zoster Vaccine Recombinant (Shingrix) 11/02/2020 ,09/30/2019 documented as of this encounter Social History Tobacco Use Types Packs/Day Years Used Date Smoking Tobacco: Former Cigarettes Q uit: 10/2022 Smokeless Tobacco: Former Tobacco Cessation:Counseling Given: No Alcohol Use Standard Drinks/Week Comments Not Currently [...] Sign Reading Time Taken Comments Blood Pressure 94/61 08/09/2023 8:38 AM EST Pulse 118 08/09/2023 8:38 AM EST Temperature 35.6 C (96 F) 08/09/2023 8:38 AM EST Respiratory Rate 18 08/09/2023 8:38 AM EST Oxygen Saturation 94% 08/09/2023 8:38 AM EST Inhaled Oxygen Concentration - - Weight 114.3 kg (252 lb) 08/09/2023 8:38 AM EST Height - - Body Mass Index 31.5 05/31/2023 10:31 AM EST documented in this encounter Patient Instructions * Patient Instructions* Mariana Michele LPN - 08/09/2023 8:32 AM EST Our Palliative Medicine Clinic is available Monday through Monday during business hours, so we are unavailable on weekends and holidays. Please ensure that you request refills early in the week as itmay take 1-2 days for them to be addressed and filled, for authorizations to be approved, or for the pharmacy to order them if needed. You can contact our office at [phone], which is our clinic in [place], or you can message us on Decision L[employer]. If you have an emergency outside of these hours, we recommend calling your primary care clinic, Oncology office, or going to the ER if you have a medical emergency. documented in this encounter Progress Notes * Mariana Michele LPN - 08/09/2023 8:37 AM EST Return Palliative Visit Pain: 0/10 currently When he does get the pain its still mostly on the right side-will sometimes go into shoulder and neck Takes the oxycodone typically twice daily BP slightly low today States he broke out into a sweat on his way here * Shante Prado MD - 08/09/2023 8:30 AM EST Palliative Medicine Outpatient Progress Note [facility] Palliative Medicine Outreach [address] [place] [address] Name: Brad Holm Date: 08/09/2023 HPI: Brad Holm is a 63 year old male with pancreatic tail adenocarcinoma, with mets to liver seenin follow-up for goals of care and symptom management. Had chemo yesterday No pain today - in general "very annoying", worse at nighttime, in abdomen, shoulders, neck. "Wholebody feels sick" - taking Oxy 10mg PRN - took one today - about BID Reports feeling lightheaded today - BP is low in office - repeat BP 94/52 Palliative ROS: Pain: as above Nausea/Vomiting no Constipation: usually constipated - has some pills Confusion: no Sleep: tired - can't sleep a lot at night - sleeping whenever Activities: can't do much in the day right now Appetite: cookies / milk in general - Mood: n/a Other: no Examination: BP 94/61 | Pulse 118 | Temp 35.6 C (96 F) | Resp 18 | Wt 114.3 kg (252 lb) | SpO2 94% | BMI 31.50 kg/m | BSA 2.46 m Constitutional: no acute distress, chronically ill HENT: normocephalic, atraumatic. Eyes: anicteric, sclera and conjunctiva normal. Neck: no stridor Chest: normal respiratory effort Abdominal: nondistended Extremities: no edema Data Review: External notes reviewed: Reviewed notes from Dr Torrez on 04/24/23 and information learned includes treatment plan has changed Lab / Imaging Results: Cr 0.7 from 08/08/23, normal Discussion with other team members: I discussed patient with hem onc nursing about pts dehydration Decision-making Capacity: Does Patient have Decisional Capacity? yes Does Patient have a Healthcare Agent? Yes, see prior Advanced Care Planning (see ACP Tab): AD in EMR: no POLST in EMR: yes, DNR LIMITED ASSESSMENT/PLAN: Brad Holm is a 63 year old male seen in follow-up for goals of care and pain and symptom management. Stage IV pancreatic CA - Arranged w/hem onc to get IV fluids in office - Will arrange for Home health as pt has increased difficulty leaving the home, concerned about side effects w/meds, is not managing his medications correctly Cancer related pain - Stopped MS Contin in past as he was not taking it correctly - Continue Oxy 10mg q4h PRN - currently at BID, he will try to take it TID and see if this helps Opioid induced constipation - Senna 1-2 tab qHS Follow up Fri w/nurse call, in 1 mo otherwise I spent a total of 41 minutes on the date of service in preparation, delivery, and documentation ofthe care provided to Brad Holm. Shante Prado MD Palliative Medicine Physician [facility] Office: [phone] 08/09/2023 documented in this encounter Miscellaneous Notes * Addendum Note - Mariana Michele LPN - 08/09/2023 11:22 AM ESTAddended by: MARIANA MICHELE on: 08/09/2023 11:22 AM Modules accepted: Orders documented in this encounter Plan of Treatment Upcoming Encounters Date Type Department Care Team (Late st Contact Info) Description 08/15/2023 10:20 AM EST Laboratory Laboratory [facility] [address] [place] [phone] Neisha [facility] [address] [place] [address] 08/15/2023 11:15 AM EST Hem/Onc Treatment Hematology/Oncology Treatment, [place] [address] [facility] [address] Neisha, Chair 8 Hem Onc [place] [address] [place] [address] 08/16/2023 10:45 AM EST Office Visit Orthopaedics [facility] [address] [place] [address] Judy Clay MD [address] [place] [address] 08/25/2023 9:45 AM EST Telemedicine Urology Luli Sanchez [address] [place] [address] [place] [address] Adolfo Key MD [address] [place] [address] [place] [address] 7, Telemed [facility] Urology Ex Rm 132 [facility] [place] [address] 08/29/2023 10:00 AM EST Laboratory Laboratory, [facility] 132 [facility] [phone] [facility] [address] [facility] [place] [address] 08/30/2023 8:45 AM EST Office Visit Hematology/Oncology [facility] [address] [place] [address] Teto Torrez MD [address] [place] [address] 08/30/2023 9:15 AM EST Hem/Onc Treatment Hematology/Oncology Treatment, [place] [address] [place] [address] Neisha, Chair [address] [place] [address] 11/15/2023 11:30 AM EDT Office Visit Urology, [facility] [address] [facility] [place] [address] Adolfo Key MD [address] [place] [address] [place] [address] Scheduled Procedures Name Priority Associated Diagnoses Date/Ti me COLONOSCOPY FLEXIBLE PROXIMAL DIAGNOSTIC Recall History of colon polyps Scheduled Referrals Name Type Priority Associated Diagnoses Orde r Schedule HOME HEALTH REFERRAL OP Referral Within 10 days (routine) Adenocarcinoma of pancreas (HCC) Ordered: 08/09/2023 POPULATION HEALTH REFERRAL OP Referral Within 10 days (routine) Adenocarcinoma of pancreas (HCC) Cancer related pain Encounter for palliative care Constipation due to pain medication Ordered: 08/09/2023 Health Maintenance Due Date Last Done Comments [...] this encounter Medical Devices Implanted Type Area Construction Sales Representative Device Identifier Shelf Expiration Date Model / Serial / Lot Port Implant W/8f Poly Cath - [id number] Implanted:Qty : 1 on 12/01/2022 by Brad Cerda DO at OR [facility] Right: Chest CR BARD : PERIPHERAL VASCULAR [id number] 02/24/2024 [id number] / / [id number] System Urolift - [id number] Implanted:Qty : 6 on 05/31/2023 by Adolfo Key MD at OR [facility] [employer] 09/01/2023 [id number] / / [id number] Description:prostate documented as of this encounter Visit Diagnoses Diagnosis Adenocarcinoma of pancreas (HCC)- Primary Malignant neoplasm of pancreas, part unspecified Cancer related pain Neoplasm related pain (acute) (chronic) Encounter for palliative care Constipation due to pain medication Other constipation documented in this encounter Advance Directives Documents on File Type Date Recorded Patient Seat Scooper Machine Expl anation POLST 07/13/2023 4:08 PM POLST [...] Discussed due to patient's condition Care Teams Canceling Machine Operator Relationship Specialty Start Date End Date Ray Royal MD [address] [place] [address] [place] [address] PCP - General Family Medicine 10/22/18 documented as of this encounter
--- OUTSIDE RECORDS SUMMARY | 2023-09-20 05:52 | External Medical Summary | Summary of Care ---
Author Name Unknown Organization [facility] Address [address] [place] [address] Phone [phone] Care Team Providers Care Professor Of Chemistry Name Role Phone Ray Royal MD Primary Care Provider [phone] Reason for Referral * Social Care (Within 10 days (routine)) - Pending Review Specialty Diagnoses / Procedures Referred By Mike velázquez Referred To Contact Tissue Technician Diagnoses Adenocarcinoma of pancreas (HCC) Cancer related pain Encounter for palliative care Constipation due to pain medication Shante Prado MD [address] [place] [address] Referral ID Status Reason Start Date Expiration Date Visits Requested Visits Authorized [id number] Pending Review Specialty Services Required 08/09/2023 999 999 Question Answer Referral Priority Within 10 days (routine) Where should this appointment be scheduled? [facility] Role Assembler Unit Referring Reason: Coordinate Cancer Resources Comments Is [...] Adenocarcinoma of pancreas (HCC) Shante Prado MD [address] [place] [address] Referral ID Status Reason Start Date Expiration Date Visits Requested Visits Authorized [id number] Pending Review Specialty Services Required 08/09/2023 999 999 Question Answer Referral Priority Within 10 days (routine) Where should this appointment be scheduled? [facility] Documentation of Faps-va-Jefz Encounter Addendum Patient Name: Brad Holm I certify that this patient is under my care and that I, or a nurse practitioner or physician's assistant purchasing manager working with me, had a rkpm-ty-rper encounter that meets the physician uxxl-mg-ynwz encounter requirements with this patient on: 08/09/2023 [...] effort and are for medical reasons or sabianism services or infrequently or of short duration [...] 8:30 AM EST Office Visit Palliative Medicine [facility] [address] [place] [address] Shante Prado MD [address] [place] [address] [place] [address] Adenocarcinoma of pancreas (HCC)*; [...] yrs 09/21/2020,03/23/2020,02/09 Pneumococcal Conjugate Vacci ne, 20-valent ([id number]) 10/26/2022(Deferred: Patient Refused) Pneumococcal Polysaccharide PPV23 (Pneumovax) [...] needed. You can contact our office at [phone], which is our clinic in [place], or you can message us on Translimit. If you have an emergency outside of [...] AM EST Palliative Medicine Outpatient Progress Note [facility] Palliative Medicine Outreach [address] [place] [address] Name: Brad Holm Date: 08/09/2023 HPI: Brad [...] Holm. Shante Prado MD Palliative Medicine Physician [facility] Office: [phone] 08/09/2023 documented in this encounter Miscellaneous Notes * Addendum Note - Mariana Michele LPN - 08/09/2023 11:22 AM ESTAddended by: MARIANA MICHELE on: 08/09/2023 11:22 AM Modules accepted: Orders documented in this encounter Plan of Treatment Upcoming Encounters Date Type Department Care Team (Late st Contact Info) Description 08/15/2023 10:20 AM EST Laboratory Laboratory [facility] [address] [facility] [place] [phone] Neisha [facility] [address] [facility] [place] [address] 08/15/2023 11:15 AM EST Hem/Onc Treatment Hematology/Oncology Treatment, [place] [address] [facility] [address] Neisha, Chair 8 Hem Onc [facility] [address] [facility] [place] [address] 08/16/2023 10:45 AM EST Office Visit Orthopaedics [facility] [address] [place] [address] Judy Clay MD [address] [place] [address] 08/25/2023 9:45 AM EST Telemedicine Urology Luli Sanchez [address] [place] [address] [place] [address] Adolfo Key MD [address] [place] [address] [place] [address] 7, Telemed [facility] Urology Ex Rm 132 [facility] [place] [address] 08/29/2023 10:00 AM EST Laboratory Laboratory, [facility] 132 [facility] [place] [phone] [facility] 132 [facility] [place] [address] 08/30/2023 8:45 AM EST Office Visit Hematology/Oncology [facility] [address] [facility] [place] [address] Teto Torrez MD [address] [facility] [place] [address] 08/30/2023 9:15 AM EST Hem/Onc Treatment Hematology/Oncology Treatment, [place] [address] [place] [address] Neisha, Chair 4 Hem On[address] [place] [address] 11/15/2023 11:30 AM EDT Office Visit Urology, [facility] 132 [facility] [place] [address] Adolfo Kye MD [address] [place] [address] [place] [address] Scheduled Procedures Name Priority Associated Diagnoses Date/Ti [...] this encounter Medical Devices Implanted Type Area Accounts Payable Bookkeeper Device Identifier Shelf Expiration Date Model / Serial / Lot Port Implant W/8f Poly Cath - [id number] Implanted:Qty : 1 on 12/01/2022 by Brad Cerda DO at OR [facility] Right: Chest CR BARD : PERIPHERAL VASCULAR [id number] 02/24/2024 [id number] / / [id number] System Urolift - [id number] Implanted:Qty : 6 on 05/31/2023 by Adolfo Key MD at OR [facility] [employer] 09/01/2023 [id number] / / [id number] Description:prostate documented as of this encounter Visit Diagnoses Diagnosis Adenocarcinoma of pancreas (HCC)- Primary Malignant neoplasm of pancreas, part unspecified Cancer related pain Neoplasm related pain (acute) (chronic) Encounter for palliative care Constipation due to pain medication Other constipation documented in this encounter Advance Directives Documents on File Type Date Recorded Patient Application Tester Expl anation POLST 07/13/2023 4:08 PM POLST [...] Discussed due to patient's condition Care Teams Professor Of Chemistry Relationship Specialty Start Date End Date Ray Royal MD [address] [place] [address] [place] [address] PCP - General Family Medicine 10/22/18 documented as of this encounter
--- OUTSIDE RECORDS SUMMARY | 2023-09-20 05:52 | External Medical Summary | Summary of Care ---
Author Name Unknown Organization [facility] Address [address] [place] [address] Phone [phone] Care Team Providers Care Palletiser Operator Name Role Phone Ray Royal MD Primary Care Provider [phone] Reason for Visit * Reason Comments IV Therapy Hydration Encounter Details Date Type Department Care Team (Latest Contact Info) Description 08/09/2023 9:00 AM EST Hem/Onc Treatment Hematology/Oncology Treatment, [place] [address] [place] [address] Neisha Chair 9 Hem Onc [address]enery [address] [place] [address] Dehydration*; Adenocarcinoma of pancreas (HCC); Metastasis to [...] mRNA, LNP-s, No Pre serve, 2-Dose Series ([employer]) 02/23/2021,02/02/2021 HEP A - Hepatitis A (Adult > 18 yrs) 09/21/2020, 02/10/2020 Hepatitis B, 20+ yrs 09/21/2020,03/23/2020,02/09 Pneumococcal Conjugate Vacci ne, 20-valent ([id number]) 10/26/2022(Deferred: Patient Refused) Pneumococcal Polysaccharide PPV23 (Pneumovax) [...] re-check after infusion is 105/68. Reviewed with kevin Salazar to discharge patient. Patient denies any symptoms, [...] BP hypotensive (see flowsheets). Spoke with kevin Gonzalez to give 1L NSS hydration. Chair 1. [...] Description 08/15/2023 10:20 AM EST Laboratory Laboratory [facility] [address] [place] [phone] Neisha, Lab Scenery [address] [facility] [place] [address] 08/15/2023 11:15 AM EST Hem/Onc Treatment Hematology/Oncology Treatment, [place] [address] [place] [address] Neisha, Chair 8 Hem Onc [address] [place] [address] 08/16/2023 10:45 AM EST Office Visit Orthopaedics [facility] [address] [place] [address] Judy Clay MD [address] [place] [address] 08/25/2023 9:45 AM EST Telemedicine Urology Luli Sanchez [address] [place] [address] [place] [address] Adolfo Key MD [address] [place] [address] [place] [address] 7, Telemed [facility] Urology Ex Rm [address] [place] [address] 08/29/2023 10:00 AM EST Laboratory Laboratory, [facility] [address] [place] [phone] Patricio Cardoza [facility] [place] [address] 08/30/2023 8:45 AM EST Office Visit Hematology/Oncology [facility] [address] [place] [address] Teto Torrez MD [address] [place] [address] 08/30/2023 9:15 AM EST Hem/Onc Treatment Hematology/Oncology Treatment, [place] [address] [place], [place] [address] Neisha, Chair 4 Hem Onc [facility] [address] [facility] [place] [address] 11/15/2023 11:30 AM EDT Office Visit Urology, [facility] 132 [facility] [place] [address] Adolfo Key MD 27 [facility] [address] [place] [address] Scheduled Procedures [...] this encounter Medical Devices Implanted Type Area Upper Lining Cementer Device Identifier Shelf Expiration Date Model / Serial / Lot Port Implant W/8f Poly Cath - [id number] Implanted:Qty : 1 on 12/01/2022 by Brad Cerda DO at OR [facility] Right: Chest CR BARD : PERIPHERAL VASCULAR [id number] 02/24/2024 [id number] / / [id number] System Urolift - [id number] Implanted:Qty : 6 on 05/31/2023 by Adolfo Key MD at OR [facility] [employer] 09/01/2023 [id number] / / [id number] Description:prostate documented as of this encounter Visit [...] Flush, Starting on Mon08/09/23 at 0929, Until Radha 08/10/23 at 0928, For 24 hours, Do not flush if lock, PICC, or central line not in place; IV infusing or unable to flush. Given 08/09/2023 10:12 AM EST 500 Units sodium chloride 0.9 % flush central line 10 mL 10 mL, IV Push, PRN Other, IV Flush, Starting on Mon08/09/23 at 0929, Until Radha 08/10/23 at 0928, For 24 hours, Do not flush if lock, PICC, or central line not in place; IV infusing or unable to flush. Given 08/09/2023 10:12 AM EST 10 mL Given 08/09/2023 9:10 AM EST 10 mL Inactive Administered Medications - up to 3 most recent administrations Medication Order MAR Action Action Date Dose Rate Site NSS infusion FOR HYDRATION Intravenous, at 1,000 mL/hr Administer over 1 Hours, ONCE, 1 dose, On Mon08/09/23 at 1030 Start Infusion 08/09/2023 9:12 AM EST 1,000 mL 1000 mL/hr documented in this encounter Advance Directives Documents on File Type Date Recorded Patient Cable Testers Helper Expl anation POLST 07/13/2023 4:08 PM [...] Discussed due to patient's condition Care Teams Palletiser Operator Relationship Specialty Start Date End Date Ray Royal MD [address] [place] [address] [place] [address] PCP - General Family Medicine 10/22/18 documented as of this encounter
--- OUTSIDE RECORDS SUMMARY | 2023-09-20 05:52 | External Medical Summary | Summary of Care ---
Author Name Unknown Organization [facility] Address [address] [place] [address] Phone [phone] Care Team Providers Care Chief Transfer And Pumphouse Operator Name Role Phone Ray Royal MD Primary Care Provider + [phone] Reason for Visit * Reason Comments IV Therapy Hydration Encounter Details Date Type Department Care Team (Latest Contact Info) Description 08/09/2023 9:00 AM EST Hem/Onc Treatment Hematology/Oncology Treatment, [place] [address] [place] [address] Neisha Chair 9 Hem Onc Scenery [address] [place] [address] Dehydration*; Adenocarcinoma of pancreas (HCC); Metastasis to [...] mRNA, LNP-s, No Pre serve, 2-Dose Series (Wellsphere) 02/23/2021,02/02/2021 HEP A - Hepatitis A (Adult > 18 yrs) 09/21/2020, 02/10/2020 Hepatitis B, 20+ yrs 09/21/2020,03/23/2020,02/09 Pneumococcal Conjugate Vacci ne, 20-valent ([id number]) 10/26/2022(Deferred: Patient Refused) Pneumococcal Polysaccharide PPV23 (Pneumovax) [...] Description 08/15/2023 10:20 AM EST Laboratory Laboratory [facility] [address] [place] [phone] Neisha, Lab Scenery [address] [facility] [place] [address] 08/15/2023 11:15 AM EST Hem/Onc Treatment Hematology/Oncology Treatment, [place] [address] [place] [address] Neisha, Chair 8 Hem Onc Scenery [address] [place] [address] 08/16/2023 10:45 AM EST Office Visit Orthopaedics [facility] [address] [place] [address] Judy Clay MD [address] [place] [address] 08/25/2023 9:45 AM EST Telemedicine Urology Luli Sanchez [address] [place] [address] [place] [address] Adolfo Key MD [address] [place] [address] [place] [address] 7, Telemed [facility] Urology Ex Rm [address] [place] [address] 08/29/2023 10:00 AM EST Laboratory Laboratory, [facility] [address] [place] [phone] Patricio Cardoza [facility] [place] [address] 08/30/2023 8:45 AM EST Office Visit Hematology/Oncology [facility] [address] [place] [address] Teto Torrez MD [address] [place] [address] 08/30/2023 9:15 AM EST Hem/Onc Treatment Hematology/Oncology Treatment, [place] [address] [place], [place] [address] Neisha, Chair 4 Hem Onc [facility] 200 [facility] [place] [address] 11/15/2023 11:30 AM EDT Office Visit Urology, [facility] 132 [facility] [place] [address] Adolfo Key MD 27 [facility] [address] [place] [address] Scheduled [...] this encounter Medical Devices Implanted Type Area Organic Chemistry Teacher Device Identifier Shelf Expiration Date Model / Serial / Lot Port Implant W/8f Poly Cath - [id number] Implanted:Qty : 1 on 12/01/2022 by Brad Cerda DO at OR [facility] Right: Chest CR BARD : PERIPHERAL VASCULAR [id number] 02/24/2024 [id number] / / [id number] System Urolift - [id number] Implanted:Qty : 6 on 05/31/2023 by Adolfo Key MD at OR [facility] [employer] 09/01/2023 [id number] / / [id number] Description:prostate documented as of this encounter Visit [...] Documents on File Type Date Recorded Patient Budget Consultant Expl anation POLST 07/13/2023 4:08 PM [...] Discussed due to patient's condition Care Teams Chief Transfer And Pumphouse Operator Relationship Specialty Start Date End Date Ray Royal MD [address] [place] [address] [place] [address] PCP - General Family Medicine 10/22/18 documented as of this encounter
--- OUTSIDE RECORDS SUMMARY | 2023-09-20 05:53 | External Medical Summary ---
Author Name Unknown Address Unknown Organization [facility] [address] [place] [address] Laboratory Report Ordering Provider Test Date Status TJ SMITH 08/08/2023 10:17:36 Final Observation Date Value Abnormality Reference (Units ) Status WBC, Total 08/08/2023 10:17:36 5.32 4.00-10.8 0 (K/uL) Final RBC 08/08/2023 10:17:36 3.61 4.50-5.25 (M/uL) Final Hemoglobin 08/08/2023 10:17:36 11.3 Below low normal 14 .0-16.8 (g/dL) Final HCT 08/08/2023 10:17:36 37.2 Below low normal 40. 0-48.4 (%) Final MCV 08/08/2023 10:17:36 103.0 82.0-99.5 (fL) Final MCH 08/08/2023 10:17:36 31.3 27.0-34.0 (pg) Final MCHC 08/08/2023 10:17:36 30.4 32.0-36.0 (g/dL) Final RDW 08/08/2023 10:17:36 16.3 11.5-15.5 (%) Final Platelets 08/08/2023 10:17:36 253 140-400 (K /uL) Final MPV 08/08/2023 10:17:36 10.9 6.6-11.1 ( fL) Final Performing Location [facility] [place] [address]
--- OUTSIDE RECORDS SUMMARY | 2023-09-20 05:53 | External Medical Summary ---
Author Name Unknown Address Unknown Organization [facility] [address] [place] [address] Laboratory Report Ordering Provider Test Date Status TJ SMITH 08/08/2023 10:17:36 Final Observation Date Value Abnormality Reference (Units ) Status BUN 08/08/2023 10:17:36 16 6-20 (mg/dL) Final Creatinine 08/08/2023 10:17:36 0.7 0.6-1.2 (mg/dL) Final Glomerular filtration rate/1.73 sq M.predicted [Volume Rate/Area] in Serum, Plasma or Blood by Creatinine-based formula (CKD-EPI) 08/08/2023 10:17:36 >90 >=60 (mL/min) Final eGFR is calculated based on the CKD-EPI 2020 equation SODIUM 08/08/2023 10:17:36 142 135-146 (m mol/L) Final Potassium 08/08/2023 10:17:36 4.6 3.5-5.1 (m mol/L) Final Cl 08/08/2023 10:17:36 104 98-107 (mm ol/L) Final CO2 08/08/2023 10:17:36 24 22-32 (mmo l/L) Final Anion gap 08/08/2023 10:17:36 14 7-15 (mmol /L) Final Glucose 08/08/2023 10:17:36 159 Above high normal 70 -120 (mg/dL) Final Albumin 08/08/2023 10:17:36 3.5 Below low normal 3.8 -5.0 (g/dL) Final AST (Aspartate aminotransferase) 08/08/2023 10:17:36 34 10-50 (U/L) Fin al Alk Phos 08/08/2023 10:17:36 170 Above high normal 35 -130 (U/L) Final Bilirubin, Total 08/08/2023 10:17:36 0.8 <=1 .2 (mg/dL) Final Calcium 08/08/2023 10:17:36 9.6 8.4-10.2 ( mg/dL) Final Protein 08/08/2023 10:17:36 6.8 6.0-8.3 (g /dL) Final ALT (Alanine aminotransferase) 08/08/2023 10:17:36 20 10-50 (U/L) Darien harris Performing Location [facility] [address] [place] [address]
--- OUTSIDE RECORDS SUMMARY | 2023-09-20 05:53 | External Medical Summary ---
Author Name Unknown Address Unknown Organization [facility] [address] [place] [address] Laboratory Report Ordering Provider Test Date Status TJ SMITH 08/08/2023 10:17:36 Final Observation Date Value Abnormality Reference (Units ) Status SYNC LEUKOCYTES IN BLOOD BY AUTOMATED COUNT 08/08/2023 10:17:36 5.32 4.00-10.80 (K/uL) Final Segs 08/08/2023 10:17:36 72.9 40.0-75.0 (%) Final Lymphs % 08/08/2023 10:17:36 11.3 Below low normal 18.0-42.0 (%) Final Monos 08/08/2023 10:17:36 14.3 Above high normal 1.0-11.0 (%) Final Eosinophils 08/08/2023 10:17:36 1.3 0.0-6.0 (%) Final Basos 08/08/2023 10:17:36 0.2 0.0-2.0 (%) Final Absolute Segs 08/08/2023 10:17:36 3.88 1.80-7.70 (K/uL) Final Lymphs, absolute 08/08/2023 10:17:36 0.60 Below low normal 1.00-4.80 (K/ul) Final Monos, Abs 08/08/2023 10:17:36 0.76 0.00-1.10 (K/uL) Final Eos, Abs 08/08/2023 10:17:36 0.07 0.00-0.70 (K/uL) Final Basos, Abs 08/08/2023 10:17:36 0.01 0.00-0.20 (K/uL) Final Performing Location [facility] 56 [address] [place] [address]
--- OUTSIDE RECORDS SUMMARY | 2023-09-20 05:53 | External Medical Summary | Summary of Care ---
Author Name Unknown Organization [facility] Address [address] [place] [address] Phone [phone] Care Team Providers Care Lining Machine Tender Name Role Phone Ray Royal MD Primary Care Provider + [phone] Reason for Visit * Reason Comments Outpatient Testing Encounter Details Date Type Department Care Team (Late st Contact Info) Description 08/08/2023 10:30 AM EST Laboratory Laboratory [facility] [address] [place] [address] [facility] [address] [place] [address] Adenocarcinoma of pancreas (HCC); Metastasis to liver (HCC) Allergies No known active allergiesdocumented as of this encounter (statuses as of 08/08/2023) Medications Medication Sig Dispensed Refills Start Date [...] Muscle spasms. 30 Tablet 0 06/28/2023 Active oxyCODONE HCl 10 MG Oral Tablet (Roxicodone)Indicatio ns:Cancer related pain Take 1 Tablet by mouth every 4 hours as needed for Pain, Severe. 60 Tablet 0 07/12/2023 Active Ondansetron HCl 8 MG Oral TabletIndications:Marj nocarcinoma of pancreas (HCC),Metastasis to liver (HCC) Take 1 Tablet by mouth every 8 hours as needed for Nausea. 30 Tablet 3 07/18/2023 Active Prochlorperazine Maleate 10 MG Oral Tablet (Compazine)Indication s:Adenocarcinoma of pancreas (HCC),Metastasis to liver (HCC) Take 1 Tablet by mouth every 6 hours as needed for Nausea. 60 Tablet 2 07/18/2023 Active documented as of this encounter (statuses as of 08/08/2023) Active Problems Problem Noted Date Diagnosed Date Food insecurity 06/05/2023 Overview: Per [facility] Protocol Urethral stricture 04/03/2023 Slow [...] as of this encounter (statuses as of 08/08/2023) Immunizations Name Administration Dates Next Due COVID-19 mRNA, LNP-s, No Pre serve, 2-Dose Series (Neon Mobile) 02/23/2021,02/02/2021 HEP A - Hepatitis A (Adult > 18 yrs) 09/21/2020, 02/10/2020 Hepatitis B, 20+ yrs 09/21/2020,03/23/2020,02/09 Pneumococcal Conjugate Vacci ne, 20-valent ([id number]) 10/26/2022(Deferred: Patient Refused) Pneumococcal Polysaccharide PPV23 (Pneumovax) [...] Care Team (Late st Contact Info) Description 08/08/2023 11:30 AM EST Hem/Onc Treatment Hematology/Oncology [address], [address] [address] Neisha, Chair 5 Hem On[address] [place] [address] Arrived 08/09/2023 8:30 AM EST Office Visit Palliative Medicine [facility] 200 [facility], [place] [address] Shante Prado MD [address] [place] [address] [place] [address] 08/09/2023 10:30 AM EST Office Visit Orthopaedics [facility] [address] [facility] [address] Judy Clay MD 132 [facility] [address] 08/15/2023 10:20 AM EST Laboratory Laboratory [address] [place] [phone] Neisha, Lab [address] [place] [address] 08/15/2023 11:15 AM EST Hem/Onc Treatment Hematology/Oncology Treatment, [address] [address] Neisha, Chair 8 Hem Onc [address] [place] [address] 08/25/2023 9:45 AM EST Telemedicine Urology Luli Sanchez [address] [place] [address] [place] [address] Adolfo Key MD [address] [place] [address] [place] [address] 7, Telemed [facility] Urology Ex Rm 132 [facility] [place] [address] 08/29/2023 10:00 AM EST Laboratory Laboratory, [facility] 132 [place] [phone] [facility] 132 [place] [address] 08/30/2023 8:45 AM EST Office Visit Hematology/Oncology [address] [place] [address] Teto Torrez MD 200 [facility] [place] [address] 08/30/2023 9:15 AM EST Hem/Onc Treatment Hematology/Oncology Treatment, [place] [address] [facility] [place] [address] Neisha, Chair 4 Hem Onc [address] [place] [address] 11/15/2023 11:30 AM EDT Office Visit Urology, [facility] 132 [place] [address] Adolfo Key MD [address] [place] [address] [place] [address] Pending Results Name Type Priority Associated Diagnoses Date /Time COMPREHENSIVE METABOLIC PANEL Lab STAT Adenocarcinoma of pancreas (HCC) Metastasis to liver (HCC) 08/08/2023 10:17 AM EST Scheduled Procedures Name Priority Associated Diagnoses Date/Ti me COLONOSCOPY FLEXIBLE PROXIMAL DIAGNOSTIC Recall History of colon polyps Health Maintenance Due Date Last Done Comments HIV Screening 1975 Depression Screening 09/29/2020 09/30/2019 COVID-19 Vaccine (3 - Pfizer risk series) 03/23/2021 02/23/2021, 02/02/2021 Pneumococcal Vaccine: Pediatrics (0 to 5 Years) and At-Risk Patients (6 to 64 Years) (2 - PCV) 05/10/2022 05/10/2021 GFR 07/25/2024 07/25/2023, 06/27, 07/04/2023, Additional history exists Albumin/Creatinine Ratio 09/14/2025 023, 09/07/2021, 10/22/2018 Diabetes Screening 07/25/2026 07/25/2023, 0 07/17/2023, 07/04/2023, Additional history exists Lipid Panel 11/25/2027 11/24/2022, [...] this encounter Medical Devices Implanted Type Area Microsoft Office Instructor Device Identifier Shelf Expiration Date Model / Serial / Lot Port Implant W/8f Poly Cath - [id number] Implanted:Qty : 1 on 12/01/2022 by Brad Cerda DO at OR [facility] Right: Chest CR BARD : PERIPHERAL VASCULAR [id number] 02/24/2024 [id number] / / [id number] System Urolift - [id number] Implanted:Qty : 6 on 05/31/2023 by Adolfo Key MD at OR [facility] [employer] 09/01/2023 [id number] / / [id number] Description:prostate documented as of this encounter Procedures Procedure Name Priority Date/Time Associated Diagnosis Comments DIFFERENTIAL, AUTOMATED STAT 08/08/2023 10:17 AM EST Adenocarcinoma of pancreas (HCC) Metastasis to liver (HCC) CBC STAT 08/08/2023 10:17 AM EST Adenocarcinoma of pancreas (HCC) Metastasis to liver (HCC) CBC STAT 08/08/2023 10:17 AM EST Adenocarcinoma of pancreas (HCC) Metastasis to liver (HCC) DIFFERENTIAL, TECHNOLOGIST REVIEW Routine 08/08/2023 10:17 AM EST Adenocarcinoma of pancreas (HCC) Metastasis to liver (HCC) documented in this encounter Results * DIFFERENTIAL, TECHNOLOGIST REVIEW (08/08/2023 10:17 AM EST) nRs 08/08/2023 10:31 AM EST [facility] 56- Blood Venous blood specimen / Unknown Venipuncture / Unknown 08/08/2023 10:17 AM EST 08/08/2023 10:17 AM EST Teto Torrez MD LAB BLOOD ORDERABLES [facility] 56- [address] [place] [address] * (ABNORMAL) DIFFERENTIAL, AUTOMATED (08/08/2023 10:17 AM EST) WBC 5.32 4.00 - 10.80 K/uL 08/08/2023 10:31 AM EST [facility] 56- Neutrophils % 72.9 40.0 - 75.0 % 08/08/2023 10:31 AM [facility] 56-02 Lymphocytes % 11.3(L) 18.0 - 42.0 % 08/08/2023 10:31 AM [facility] 56-02 Monocytes % 14.3(H) 1.0 - 11.0 % 08/08/2023 10:31 AM [facility] 56- Eosinophils % 1.3 0.0 - 6.0 % 08/08/2023 10:31 AM [facility] 56-02 Basophils % 0.2 0.0 - 2.0 % 08/08/2023 10:31 AM [facility] 56- Absolute Neutrophils 3.88 1.80 - 7.70 K/uL 08/08/2023 10:31 AM [facility] 56- Absolute Lymphocytes 0.60(L) 1.00 - 4.80 K/ul 08/08/2023 10:31 AM [facility] 56- Absolute Monocytes 0.76 0.00 - 1.10 K/uL 08/08/2023 10:31 AM [facility] 56-02 Absolute Eosinophils 0.07 0.00 - 0.70 K/uL 08/08/2023 10:31 AM [facility] 56- Absolute Basophils 0.01 0.00 - 0.20 K/uL 08/08/2023 10:31 AM [facility] 56-02 Blood Venous blood specimen / Unknown Venipuncture / Unknown 08/08/2023 10:17 AM EST 08/08/2023 10:17 AM EST Teto Torrez MD LAB BLOOD ORDERABLES [facility] 56- [address] [place] [address] * (ABNORMAL) CBC (08/08/2023 10:17 AM EST) WBC 5.32 4.00 - 10.80 K/uL 08/08/2023 10:31 AM [facility] 56- RBC 3.61 4.50 - 5.25 M/uL 08/08/2023 10:31 AM [facility] 56-02 HGB 11.3(L) 14.0 - 16.8 g/dL 08/08/2023 10:31 AM [facility] 56- HCT 37.2(L) 40.0 - 48.4 % 08/08/2023 10:31 AM [facility] 56- MCV 103.0 82.0 - 99.5 fL 08/08/2023 10:31 AM EST [facility] 56 MCH 31.3 27.0 - 34.0 pg 08/08/2023 10:31 AM [facility] 56 MCHC 30.4 32.0 - 36.0 g/dL 08/08/2023 10:31 AM [facility] 56 RDW 16.3 11.5 - 15.5 % 08/08/2023 10:31 AM [facility] 56- PLT 253 140 - 400 K/uL 08/08/2023 10:31 AM [facility] 56 MPV 10.9 6.6 - 11.1 fL 08/08/2023 10:31 AM [facility] 56 Blood Venous blood specimen / Unknown Venipuncture / Unknown 08/08/2023 10:17 AM EST 08/08/2023 10:17 AM EST Teto Torrez MD LAB BLOOD ORDERABLES Performing Organization Address City/State/[facility] Co de Phone Number [facility] [address] [place] [address] documented in this encounter Visit Diagnoses Diagnosis Adenocarcinoma of pancreas (HCC) Malignant neoplasm of pancreas, part unspecified Metastasis to liver (HCC) Secondary malignant neoplasm of liver documented in this encounter Advance Directives Documents on File Type Date Recorded Patient Funding Coordinator Expl anation POLST 07/13/2023 4:08 PM POLST [...] Discussed due to patient's condition Care Teams Lining Machine Tender Relationship Specialty Start Date End Date Ray Royal MD [address] [place] [address] [place] [phone] PCP - General Family Medicine 10/22/18 documented as of this encounter
--- OUTSIDE RECORDS SUMMARY | 2023-09-20 05:53 | External Medical Summary | Summary of Care ---
Author Name Unknown Organization [facility] Address [address] [place] [address] Phone [phone] Care Team Providers Care Intermediate Designer Name Role Phone Ray Royal MD Primary Care Provider [phone] Reason for Visit * Reason Comments Chemotherapy Gemzar. * Evaluate & Treat - Unlimited Visits (Within 30 days (routine)) - Authorized Specialty Diagnoses / Procedures Referred By Mike velázquez Referred To Contact Hematology Oncology Diagnoses Gallbladder cancer (HCC) Procedures Eval/Treat Anabell Driver PA-C [address] [place] [address] Referral ID Status Reason Start Date Expiration Date Visits Requested Visits Authorized [id number] Authorized Specialty Services Required 12/01/2022 12/06/[phone] Encounter Details Date Type Department Care Team (Latest Contact Info) Description 08/08/2023 11:30 AM EST Hem/Onc Treatment Hematology/Oncolog y Treatment, [address] [address] Neisha, Chair [address] [address] Adenocarcinoma of pancreas (HCC)*; Encounter for antineoplastic [...] mRNA, LNP-s, No Pre serve, 2-Dose Series (Blackwood Seven) 02/23/2021,02/02/2021 HEP A - Hepatitis A (Adult > 18 yrs) 09/21/2020, 02/10/2020 Hepatitis B, 20+ yrs 09/21/2020,03/23/2020,02/09 Pneumococcal Conjugate Vacci ne, 20-valent ([id number]) 10/26/2022(Deferred: Patient Refused) Pneumococcal Polysaccharide PPV23 (Pneumovax) [...] 8:30 AM EST Office Visit Palliative Medicine [facility] [address] [place] [address] Shante Prado MD [address] [place] [id number] 08/09/2023 10:30 AM EST Office Visit Orthopaedics [facility] [address] [place] [address] Judy Clay MD [address] [place] [address] 08/15/2023 10:20 AM EST Laboratory Laboratory [facility] 200 [facility] [place] [phone] [place] [address] 08/15/2023 11:15 AM EST Hem/Onc Treatment Hematology/Oncology Treatment, [place] 200 [facility], [place] [address] Neisha, Chair 8 Hem Onc [address] [place] [address] 08/25/2023 9:45 AM EST Telemedicine Urology Luli Sanchez [address] [place] [address] [place] [address] Adolfo Key MD [address] [place] [address] 7, Telemed [facility] Urology Ex [address] [facility] [place] [address] 08/29/2023 10:00 AM EST Laboratory Laboratory, [facility] 132 [facility] [phone] [facility] 132 [facility] [place] [address] 08/30/2023 8:45 AM EST Office Visit Hematology/Oncology [facility] 200 [facility] [place] [address] Teto Torrez MD [address] [place] [address] 08/30/2023 9:15 AM EST Hem/Onc Treatment Hematology/Oncology Treatment, [place] 200 [facility], [place] [address] Neisha, Chair 4 Hem Onc [address] 200 [facility] [place] [address] 11/15/2023 11:30 AM EDT Office Visit Urology, [facility] [address] [facility] [place] [address] Adolfo Key MD [address] [place] [address] [place] [address] Scheduled Procedures [...] this encounter Medical Devices Implanted Type Area Relief Manager Device Identifier Shelf Expiration Date Model / Serial / Lot Port Implant W/8f Poly Cath - [id number] Implanted:Qty : 1 on 12/01/2022 by Brad Cerda DO at OR [facility] Right: Chest CR BARD : PERIPHERAL VASCULAR [id number] 02/24/2024 [id number] / / [id number] System Urolift - [id number] Implanted:Qty : 6 on 05/31/2023 by Adolfo Key MD at OR [facility] [employer] 09/01/2023 [id number] / / [id number] Description:prostate documented as of this encounter Visit [...] ONCE PRN Other, Hypersensitivity Reaction, Starting on Mon08/08/23 at 1052, Until Mon08/09/23 at 1051, For 24 hours EPINEPHrine 1 MG/ML inj 0.3 mg 0.3 mg, Intramuscular, ONCE PRN Other, Hypersensitivity Reaction or Anaphylaxis, Starting on Mon08/08/23 at 1052, Until Mon08/09/23 at 1051, For 24 hours hEParin 100 UNIT/ML Lock Flush inj 500 Units 500 Units (5 mL), IV Lock, PRN Other, IV Flush, Starting on Mon08/08/23 at 1052, Until Mon08/09/23 at 1051, For 24 hours, Do not flush if lock, PICC, or central line not in place; IV infusing or unable to flush. Given 08/08/2023 12:04 PM EST 500 Units Hydrocortisone Sod Suc (PF) (Solu-Cortef) inj 100 mg 100 mg, IV Push, ONCE PRN Other, Hypersensitivity Reaction, Starting on Mon08/08/23 at 1052, Until Mon08/09/23 at 1051, For 24 hours LORAzepam (Ativan) tab 0.5 mg 0.5 mg, Oral, ONCE PRN Anxiety, Nausea, Starting on Mon08/08/23 at 1200, Until Discontinued NSS infusion Intravenous, at 50 mL/hr, PRN, Starting on Mon08/08/23 at 1200, Until Discontinued, Maintenance line Start Infusion 08/08/2023 11:00 AM EST 50 mL/hr oxygen GAS Inhalation, OXYGEN, First dose on Mon08/08/23 at 1130, Until Discontinued, Device/Managed by: Low Flow Device, [...] Flush, Starting on Mon08/08/23 at 1052, Until Mon08/09/23 at 1051, For 24 hours, Do not flush if lock, PICC, or central line not in place; IV infusing or unable to flush. Given 08/08/2023 12:04 PM EST 10 mL Inactive Administered Medications [...] 11:30 AM EST 2,600 mg 500 mL/hr ondansetron (Zofran) tab 8 mg 8 mg, Oral, ONCE, On Mon08/08/23 at 1200, For 1 dose, Give 30 minutes prior to chemotherapy. Given 08/08/2023 11:00 AM EST 8 mg documented in this encounter Advance Directives Documents on File Type Date Recorded Patient Lift Mechanic Expl anation POLST 07/13/2023 4:08 PM [...] Discussed due to patient's condition Care Teams Intermediate Designer Relationship Specialty Start Date End Date Ray Royal MD [address] [place] [address] [place] [id number] PCP - General Family Medicine 10/22/18 documented as of this encounter
--- OUTSIDE RECORDS SUMMARY | 2023-09-20 05:53 | External Medical Summary ---
Author Name Unknown Address Unknown Organization [facility] [place] [address] Laboratory Report Ordering Provider Test Date Status TJ SMITH 08/08/2023 10:17:36 Final Observation Date Value Abnormality Reference (Units ) Status Nucleated erythrocytes/100 leukocytes [Ratio] in Blood by Automated count 08/08/2023 10:17:36 Final Performing Location [facility] [place] [address]
--- OUTSIDE RECORDS SUMMARY | 2023-09-20 05:53 | External Medical Summary | Summary of Care ---
Author Name Unknown Organization [facility] Address [address] [place] [address] Phone [phone] Care Team Providers Care Biomedical Service Engineer Name Role Phone Ray Royal MD Primary Care Provider [phone] Reason for Visit * Reason Onset Date Comments Medication Refill 08/08/2023 Encounter Details Date Type Department Care Team (Late st Contact Info) Description 08/08/2023 Refill Palliative Medicine, [address] 5th [place] [address] Nikole Franklin MD [address] [place] [address] Cancer related pain Allergies No known [...] Pain, Severe. 60 Tablet 0 08/08/2023 Active oxyCODONE HCl 10 MG Oral Tablet (Roxicodone)Indicat ions:Cancer related pain Take 1 Tablet by mouth every 4 hours as needed for Pain, Severe. 60 Tablet 0 07/12/2023 Discontinue d(Refill) documented as of this encounter (statuses as of 08/08/2023) Active Problems Problem Noted Date Diagnosed Date Food insecurity 06/05/2023 Overview: Per [facility] Protocol Urethral stricture 04/03/2023 Slow urinary [...] mRNA, LNP-s, No Pre serve, 2-Dose Series (Oh My Green!) 02/23/2021,02/02/2021 HEP A - Hepatitis A (Adult > 18 yrs) 09/21/2020, 02/10/2020 Hepatitis B, 20+ yrs 09/21/2020,03/23/2020,02/09 Pneumococcal Conjugate Vacci ne, 20-valent ([id number]) 10/26/2022(Deferred: Patient Refused) Pneumococcal Polysaccharide PPV23 (Pneumovax) [...] Telephone Encounter - Nikole Franklin MD - 08/08/2023 11:26 AM EST I have reviewed the patients controlled substance dispensing history in the Prescription Drug Monitoring Program in compliance with the [facility] regulations before prescribing a controlled substance. * Telephone Encounter - Nikole Franklin MD - 08/08/2023 11:26 AM EST Signed Prescriptions: Disp Refills oxyCODONE HCl 10 MG Oral Tablet (Roxicodon*60 Tab*0 Sig: Take 1 Tablet by mouth every 4 hours as needed for Pain, Severe. Authorizing Provider: NIKOLE FRANKLIN * Telephone Encounter - Mariana Michele LPN - 08/08/2023 11:16 AM EST Did you pend patient's preferred pharmacy and medication before forwarding?yes Pharmacy: [facility], [facility] [place] DECKER Authorization for medication useage called to indicated pharmacy per Dr. Franklin due to Brad Holm. Last Visit: Visit date not found (in office), 06/28/2023 (telemedicine) I have reviewed the patients controlled substance dispensing history in the Prescription Drug Monitoring Program in compliance with the [facility] regulations before prescribing a controlled substance. Were any discrepancies found:no Last prescribed 07/12 Last Filled 07/12 RX Due 07/22 Next Visit: 08/09 If no future appointments scheduled, and last appointment is greater than a year ago, please schedule patient for a follow-up appointment Last date the medication was ordered: 07/12 Is this request for a controlled substance?Yes, What was the last refill date 07/12 w/ quantity 60 and dosage every 4 hours PRN and Urine Drug Screen Not completed Urine Drug Screen:No results found for this or any previous visit. Patient Phone Numbers Labs: Lab Results Component Value Date/Time CREAT 0.7 08/08/2023 10:17 AM CREAT 1.29 03/31/2023 12:00 AM CREAT 1.0 02/10/2020 12:47 PM POTASSIUM 4.6 08/08/2023 10:17 AM POTASSIUM 3.5 03/31/2023 12:00 AM POTASSIUM 4.3 02/10/2020 12:47 PM TSH 2.10 09/07/2021 11:13 AM LDLCALC 118 (A) 11/24/2022 12:00 AM LDLCALC 110 10/22/2018 02:03 PM ALT 20 08/08/2023 10:17 AM ALT 116 (H) 02/10/2020 12:47 PM documented in this encounter Plan of Treatment Upcoming Encounters Date Type Department Care Team (Latest Contact Info) Description 08/08/2023 11:30 AM EST Hem/Onc Treatment Hematology/Oncolog y Treatment, [place] [address] [facility] [address] Neisha, Chair 5 Hem Onc Scenery 200 [facility] [address] Adenocarcinoma of pancreas (HCC)*; Encounter for antineoplastic chemotherapy; Metastasis to liver (HCC) 08/09/2023 8:30 AM EST Office Visit Palliative Medicine [facility] 200 [place] [address] Nikole Franklin MD [address] [place] [address] [place] [address] 08/09/2023 10:30 AM EST Office Visit Orthopaedics [facility] [address] [facility] [place] [address] Judy Clay MD [address] [place] [address] 08/15/2023 10:20 AM EST Laboratory Laboratory [facility] 200 [facility] [phone] [place] [address] 08/15/2023 11:15 AM EST [facility] 200 [place] [address] Neisha, Chair 8 Hem On[address] [place], [place] [address] 08/25/2023 9:45 AM EST Telemedicine Urology Luli Sanchez [address] [place] [address] [place] [address] Adolfo Key MD [address] [place] [address] 7, Telemed [facility] Urology Ex Rm [address] [place] [address] 08/29/2023 10:00 AM EST Laboratory Laboratory, [facility] [place] [phone] CardozaPatricio khan [facility] [address] [place] [address] 08/30/2023 8:45 AM EST Office Visit Hematology/Oncolog y Scenery Neisha [place] [address] [place] [address] Teto Torrez MD [address] [place] [address] 08/30/2023 9:15 AM EST Hem/Onc Treatment Hematology/Oncolog y Treatment, [place] [address] [place], [place] [address] Neisha, Chair 4 Hem Onc Scenery [address] [place] [address] 11/15/2023 11:30 AM EDT Office Visit Urology, [facility] 132 [place] [address] Adolfo eKy MD [address] [place] [address] [place] [phone] Scheduled Procedures Name Priority Associated Diagnoses Date/Ti [...] this encounter Medical Devices Implanted Type Area Blemish Remover Device Identifier Shelf Expiration Date Model / Serial / Lot Port Implant W/8f Poly Cath - [id number] Implanted:Qty : 1 on 12/01/2022 by Brad Cerda DO at OR [facility] Right: Chest CR BARD : PERIPHERAL VASCULAR [id number] 02/24/2024 [id number] / / [id number] System Urolift - [id number] Implanted:Qty : 6 on 05/31/2023 by Adolfo Key MD at OR [facility] [employer] 09/01/2023 [id number] / / [id number] Description:prostate documented as of this encounter Visit Diagnoses Diagnosis Adenocarcinoma of pancreas (HCC)- Primary Malignant neoplasm of pancreas, part unspecified Encounter for antineoplastic chemotherapy Metastasis to liver (HCC) 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
--- OUTSIDE RECORDS SUMMARY | 2023-09-20 05:53 | External Medical Summary | Summary of Care ---
Author Name Unknown Organization [facility] Address [address] [place] [address] Phone [phone] Care Team Providers Care Lead Oracle Developer Name Role Phone Ray Royal MD Primary Care Provider [phone] Reason for Visit * Reason Onset Date Comments Medication Refill 08/08/2023 Encounter Details Date Type Department Care Team (Late st Contact Info) Description 08/08/2023 Refill Palliative Medicine, [address] [place] [address] Nikole Franklin MD [address] [place] [address] Cancer related pain Allergies No [...] Diagnosed Date Food insecurity 06/05/2023 Overview: Per [facility] Protocol Urethral stricture 04/03/2023 Slow urinary [...] mRNA, LNP-s, No Pre serve, 2-Dose Series ([place]) 02/23/2021,02/02/2021 HEP A - Hepatitis A (Adult > 18 yrs) 09/21/2020, 02/10/2020 Hepatitis B, 20+ yrs 09/21/2020,03/23/2020,02/09 Pneumococcal Conjugate Vacci ne, 20-valent ([id number]) 10/26/2022(Deferred: Patient Refused) Pneumococcal Polysaccharide PPV23 (Pneumovax) [...] Drug Monitoring Program in compliance with the [facility] regulations before prescribing a controlled substance. [...] pharmacy and medication before forwarding?yes Pharmacy: N[facility]i [facility], [facility] [place] DECK[place] Authorization for medication useage called to indicated pharmacy per Dr. Franklin due to Brad Holm. Last Visit: Visit date not found (in office), 06/28/2023 (telemedicine) I have reviewed the patients controlled substance dispensing history in the Prescription Drug Monitoring Program in compliance with the [facility] regulations before prescribing a controlled substance. [...] 8:30 AM EST Office Visit Palliative Medicine [facility] [address] [place] [address] Nikole Franklin MD [address] [place] [address] [place] [address] 08/09/2023 10:30 AM EST Office Visit Orthopaedics [facility] 132 [facility] [address] Judy Clay MD 132 [facility] [place] [address] 08/15/2023 10:20 AM EST Laboratory Laboratory [facility] [address] [place] [phone] Neisha, Lab Scenery 200 [place] [address] 08/15/2023 11:15 AM EST Hem/Onc Treatment Hematology/Oncology Treatment, [place] [address] [place], [place] [address] Neisha, Chair 8 Hem Onc [facility] 200 [facility] [place], [place] [address] 08/25/2023 9:45 AM EST Telemedicine Urology Luli Sanchez [address] [place] [address] Adolfo Key MD [address] [place] [place] [address] 7, Telemed [facility] Urology Ex 132 [facility] [place] [address] 08/29/2023 10:00 AM EST [facility] 132 [facility] [place] [phone] [facility] 132 [facility] [address] 08/30/2023 8:45 AM EST Office Visit Hematology/Oncology [facility] [address] [place] [address] Teto Torrez MD [address] [place], [place] [address] 08/30/2023 9:15 AM EST Hem/Onc Treatment Hematology/Oncology Treatment, [place] [address] [place] [address] Neisha, Chair 4 Hem Onc Scenery [address] [place] [address] 11/15/2023 11:30 AM EDT Office Visit Urology, [facility] 132 [facility] [place] [address] Adolfo Key MD [address] [place] [...] encounter Medical Devices Implanted Type Area Gas Scrubber Operator Device Identifier Shelf Expiration Date Model / Serial / Lot Port Implant W/8f Poly Cath - [id number] Implanted:Qty : 1 on 12/01/2022 by Brad Cerda DO at OR [facility] Right: Chest CR BARD : PERIPHERAL VASCULAR [id number] 02/24/2024 [id number] / / [id number] System Urolift - [id number] Implanted:Qty : 6 on 05/31/2023 by Adolfo Key MD at OR [facility] [employer] 09/01/2023 [id number] / / [id number] Description:prostate documented as of this encounter Visit Diagnoses Diagnosis 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
--- OUTSIDE RECORDS SUMMARY | 2023-09-20 05:54 | External Medical Summary | Summary of Care ---
Author Name Unknown Organization [facility] Address [address] [place] [address] Phone [phone] Care Team Providers Care Stage Settings Painter Name Role Phone Ray Royal MD Primary Care Provider [phone] Reason for Visit * Reason Comments Outpatient Testing Encounter Details Date Type Department Care Team (Late st Contact Info) Description 07/17/2023 9:00 AM EST Laboratory Laboratory, [facility] [address] [place] [address] [facility] [address] [place] [address] Adenocarcinoma of pancreas (HCC); Metastasis to liver (HCC); Hypomagnesemia Allergies No known active allergiesdocumented as of this encounter (statuses as of 07/17/2023) Medications Medication Sig Dispensed Refills Start Date [...] Muscle spasms. 30 Tablet 0 06/28/2023 Active Morphine Sulfate ER 30 MG Oral Tablet Extended Release (Ms Contin)Indications:Ca ncer related pain Take 1 Tablet by mouth in the morning and 1 Tablet before bedtime. 30 Tablet 0 07/12/2023 Active oxyCODONE HCl 10 MG Oral Tablet (Roxicodone)Indicatio ns:Cancer related pain Take 1 Tablet by mouth every 4 hours as needed for Pain, Severe. 60 Tablet 0 07/12/2023 Active documented as of this encounter (statuses as of 07/17/2023) Active Problems Problem Noted Date Diagnosed Date Food insecurity 06/05/2023 Overview: Per [facility] Protocol Urethral stricture 04/03/2023 Slow urinary [...] 05/24/2019 Idiopathic chronic gout of multiple sites withjulius gaona 02/01/2019 Primary hypertension documented as of this encounter (statuses as of 07/17/2023) Immunizations Name Administration Dates Next Due COVID-19 mRNA, LNP-s, No Pre serve, 2-Dose Series (Advanced [employer] Monitoring) 02/23/2021,02/02/2021 HEP A - Hepatitis A (Adult > 18 yrs) 09/21/2020, 02/10/2020 Hepatitis B, 20+ yrs 09/21/2020,03/23/2020,02/09 Pneumococcal Conjugate Vacci ne, 20-valent ([id number]) 10/26/2022(Deferred: Patient Refused) Pneumococcal Polysaccharide PPV23 (Pneumovax) [...] Care Team (Late st Contact Info) Description 07/18/2023 9:15 AM EST Office Visit Hematology/Oncology [facility] 200 [facility] [place] [address] Teto Torrez MD [address] [facility] [place] [address] 07/18/2023 9:45 AM EST Hem/Onc Treatment Hematology/Oncology Treatment, [address] [place] [address] Neisha, Chair 10 Hem Onc [address] [place] [address] 07/26/2023 3:30 PM EST Office Visit Palliative Medicine [address] [place] [address] Shante Prado MD [address] [place] [address] [place] [address] 08/09/2023 10:30 AM EST Office Visit Orthopaedics [facility] 132 [facility] [place] [address] Judy Clay MD 132 [facility] [place] [address] 08/25/2023 9:45 AM EST Telemedicine Urology Luli Sanchez [address] [place] [address] [place] [address] Adolfo Key MD [address] [place] [address] [place] [address] 7, Telemed [facility] Urology Ex 132 [facility] [place] [address] 11/15/2023 11:30 AM EDT Office Visit Urology, [facility] [address] [place] [address] Adolfo Key MD 27 [facility] [address] [place] [address] Pending Results Name Type Priority Associated Diagnoses Date /Time CBC WITH WBC DIFFERENTIAL Lab STAT Adenocarcinoma of pancreas (HCC) Metastasis to liver (HCC) 07/17/2023 8:58 AM EST COMPREHENSIVE METABOLIC PANEL Lab STAT Adenocarcinoma of pancreas (HCC) Metastasis to liver (HCC) 07/17/2023 8:58 AM EST MAGNESIUM Lab STAT Hypomagnesemia 07/17/2023 8:58 AM EST CBC Lab STAT Adenocarcinoma of pancreas (HCC) Metastasis to liver (HCC) 07/17/2023 8:58 AM EST DIFFERENTIAL, AUTOMATED Lab STAT Adenocarcinoma of pancreas (HCC) Metastasis to liver (HCC) 07/17/2023 8:58 AM EST Scheduled Procedures Name Priority Associated Diagnoses Date/Ti me COLONOSCOPY FLEXIBLE PROXIMAL DIAGNOSTIC Recall History of colon polyps Health Maintenance Due Date Last Done Comments HIV Screening 1975 Depression Screening 09/29/2020 09/30/2019 COVID-19 Vaccine (3 - Pfizer risk series) 03/23/2021 02/23/2021, 02/02/2021 Pneumococcal Vaccine: Pediatrics (0 to 5 Years) and At-Risk Patients (6 to 64 Years) (2 - PCV) 05/10/2022 05/10/2021 GFR 07/04/2024 07/04/2023, 1211/2022, 06/05/2023, Additional history exists Albumin/Creatinine Ratio 09/14/2025 023, 09/07/2021, 10/22/2018 Diabetes Screening 07/04/2026 07/04/2023, 1 08/21/2022, 06/05/2023, Additional history exists Lipid Panel 11/25/2027 11/24/2022, [...] this encounter Medical Devices Implanted Type Area Icu Manager Device Identifier Shelf Expiration Date Model / Serial / Lot Port Implant W/8f Poly Cath - [id number] Implanted:Qty : 1 on 12/01/2022 by Brad Cerda DO at OR [facility] Right: Chest CR BARD : PERIPHERAL VASCULAR [id number] 02/24/2024 [id number] / / [id number] System Urolift - [id number] Implanted:Qty : 6 on 05/31/2023 by Adolfo Key MD at OR [facility] [employer] 09/01/2023 [id number] / / [id number] Description:prostate documented as of this encounter Visit Diagnoses Diagnosis Adenocarcinoma of pancreas (HCC) Malignant neoplasm of pancreas, part unspecified Metastasis to liver (HCC) Secondary malignant neoplasm of liver Hypomagnesemia Disorders of magnesium metabolism documented in this encounter Advance Directives Documents on File Type Date Recorded Patient Sole Layer Expl anation POLST 07/13/2023 4:08 PM POLST [...] Discussed due to patient's condition Care Teams Stage Settings Painter Relationship Specialty Start Date End Date Ray Royal MD [address] [place] [address] [place] [id number] PCP - General Family Medicine 10/22/18 documented as of this encounter
--- OUTSIDE RECORDS SUMMARY | 2023-09-20 05:54 | External Medical Summary | Summary of Care ---
Author Name Unknown Organization [facility] Address [address] [place] [address] Phone [phone] Care Team Providers Care Cost Estimator Name Role Phone Ray Royal MD Primary Care Provider [phone] Reason for Visit * Reason Onset Date Comments Other 04/24/2023 Encounter Details Date Type Department Care Team (Late st Contact Info) Description 04/24/2023 Telephone Urology, [facility] [address] [place] [address] Services, Scheduling [address] [place] [address] Other Allergies No known active allergiesdocumented as of this encounter (statuses as of 07/24/2023) Medications Medication Sig Dispensed Refills Start Date [...] every 8 hours. As needed 0 Active Tamsulosin HCl 0.4 MG Oral Capsule (Flomax) Take 1 Capsule by mouth every night at bedtime. 0 Active Phenazopyridine HCl 200 MG Oral Tablet (Pyridium) Take 1 Tablet by mouth 3 times a day after meals as needed for urinary burning and urgency. 18 Tablet 0 05/31/2023 Active documented as of this encounter (statuses as of 07/24/2023) Active Problems Problem Noted Date Diagnosed Date [...] as of this encounter (statuses as of 07/24/2023) Immunizations Name Administration Dates Next Due COVID-19 mRNA, LNP-s, No Pre serve, 2-Dose Series (Sharetivity) 02/23/2021,02/02/2021 HEP A - Hepatitis A (Adult > 18 yrs) 09/21/2020, 02/10/2020 Hepatitis B, 20+ yrs 09/21/2020,03/23/2020,02/09 Pneumococcal Conjugate Vacci ne, 20-valent ([id number]) 10/26/2022(Deferred: Patient Refused) Pneumococcal Polysaccharide PPV23 (Pneumovax) 05/10/2021 Seasonal Influenza, PF, 6 M & above, IM , (FluLaval or Fluzone) 03/13/2023,03/24/2022,05/10/2021,05/24 TDAP (age 10 and older)(Boostrix) 11/12/2021,11/2018 Zoster Vaccine Recombinant (Shingrix) 11/02/2020 ,09/30/2019 documented as of this encounter Social History Tobacco Use Types Packs/Day Years Used Date Smoking Tobacco: Some Days Smokeless Tobacco: Never Comments:rare cig Alcohol Use Standard Drinks/Week Comments Yes 12 (1 standard drink = 0.6 oz pu re alcohol) weeekends AUDIT-C Answer Date Recorded Frequency of Alcohol [...] encounter Miscellaneous Notes * Telephone Encounter - Veronika Boo LPN - 04/24/2023 3:29 PM EDT Re: Brad Holm : 1960 [facility] Patient is scheduled for Urolift with Dr Adolfo Key at [facility] on 05/31/2023. If further information is needed, please call office directly at [phone] and ask to speak with urology nurse. Thank you, Veronika Boo LPN This encounter was faxed to CT. * Telephone Encounter - Lynn Branch OSA - 04/24/2023 3:22 PM EDT Liliana calling from the CT in [place] she would like information on patients upcoming procedure on 05/31/23 faxed over to documented in this encounter Plan of Treatment Upcoming Encounters Date Type Department Care Team (Late st Contact Info) Description 07/25/2023 12:30 PM EST Laboratory Laboratory [facility] [address] [place] [phone] Neisha, Lab [facility] [address] [place] [address] 07/25/2023 1:30 PM EST Hem/Onc Treatment Hematology/Oncology Treatment, [place] [facility] [address] Neisha, Chair 5 Hem Onc [facility] [address] [place] [address] 07/26/2023 3:30 PM EST Office Visit Palliative Medicine [facility] [place] [address] [facility] [address] Shante Prado MD [address] [place], [place] [address] [address] 08/08/2023 10:30 AM EST Laboratory Laboratory [facility] [place] [address] [place] [phone] Neisha, Lab [facility] [address] [place] [address] 08/08/2023 11:30 AM EST Hem/Onc Treatment Hematology/Oncology Treatment, [place] [address] [facility] [address] Neisha, Chair 5 Hem Onc [facility] [address] [place] [address] 08/09/2023 10:30 AM EST Office Visit Orthopaedics [facility] [address] [facility] [place] [address] Judy Clay MD [address] [facility] [place] [address] 08/15/2023 10:20 AM EST Laboratory Laboratory [facility] Neisha [place] [address] [place], [place] [phone] Neisha, Lab Scenery [address] [facility] [place], [place] [address] 08/15/2023 11:15 AM EST [facility] [address] [place] [address] Neisha, Chair 8 Hem Onc Scenery [address] [place], [place] [address] 08/25/2023 9:45 AM EST Telemedicine Urology Luli Sanchez [address] [place] [address] Adolfo Key MD [address] [place] [address] 7, Telemed [facility] Urology Ex Rm 132 [facility] [place] [address] 08/29/2023 10:00 AM EST Laboratory [facility] [address] [facility] [place] [phone] [facility] [address] [facility] [place] [address] 08/30/2023 8:45 AM EST Office Visit Hematology/Oncology [facility] [address] [place] [address] Teto Torrez MD [address] [place], [place] [address] 08/30/2023 9:15 AM EST Hem[facility] [address] [place] [address] Neisha, Chair 4 Hem Onc Scenery [address] [place] [address] 11/15/2023 11:30 AM EDT Office Visit Urology, [facility] [address] [place] [address] Adolfo Key MD [address] [place] [address] Scheduled Procedures Name Priority Associated Diagnoses Date/Ti me COLONOSCOPY FLEXIBLE PROXIMAL DIAGNOSTIC Recall History of colon polyps Health Maintenance Due Date Last Done Comments HIV Screening 1975 Depression Screening 09/29/2020 09/30/2019 COVID-19 Vaccine (3 - Pfizer risk series) 03/23/2021 02/23/2021, 02/02/2021 Pneumococcal Vaccine: Pediatrics (0 to 5 Years) and At-Risk Patients (6 to 64 Years) (2 - PCV) 05/10/2022 05/10/2021 GFR 07/17/2024 07/17/2023, 02/2024, 06/20/2023, Additional history exists Albumin/Creatinine Ratio 09/14/2025 023, 09/07/2021, 10/22/2018 Diabetes Screening 07/17/2026 07/17/2023, 0 07/04/2023, 06/20/2023, Additional history exists Lipid Panel 11/25/2027 11/24/2022, [...] this encounter Medical Devices Implanted Type Area Generation Manager Device Identifier Shelf Expiration Date Model / Serial / Lot Port Implant W/8f Poly Cath - [id number] Implanted:Qty : 1 on 12/01/2022 by Brad Cerda DO at OR [facility] Right: Chest CR BARD : PERIPHERAL VASCULAR [id number] 02/24/2024 [id number] / / [id number] System Urolift - [id number] Implanted:Qty : 6 on 05/31/2023 by Adolfo Key MD at OR [facility] [employer] 09/01/2023 [id number] / / [id number] Description:prostate documented as of this encounter Advance Directives Documents on File Type Date Recorded Patient Contact Center Consultant Expl anation POLST 07/13/2023 4:08 PM [...] Discussed due to patient's condition Care Teams Cost Estimator Relationship Specialty Start Date End Date Ray Royal MD [address] [place] [address] [place] [address] PCP - General Family Medicine 10/22/18 documented as of this encounter
--- OUTSIDE RECORDS SUMMARY | 2023-09-20 05:54 | External Medical Summary ---
Author Name Unknown Address Unknown Organization K09:[facility] [address] [place] [address] Laboratory Report Ordering Provider Test Date Status TJ SMITH 07/25/2023 11:45:05 Final Observation Date Value Abnormality Reference (Units ) Status SYNC LEUKOCYTES IN BLOOD BY AUTOMATED COUNT 07/25/2023 11:45:05 4.14 4.00-10.80 (K/uL) Final Segs 07/25/2023 11:45:05 68.6 40.0-75.0 (%) Final Lymphs % 07/25/2023 11:45:05 15.7 Below low normal 18.0-42.0 (%) Final Monos 07/25/2023 11:45:05 14.3 Above high normal 1.0-11.0 (%) Final Eosinophils 07/25/2023 11:45:05 1.2 0.0-6.0 (%) Final Basos 07/25/2023 11:45:05 0.2 0.0-2.0 (%) Final Absolute Segs 07/25/2023 11:45:05 2.84 1.80-7.70 (K/uL) Final Lymphs, absolute 07/25/2023 11:45:05 0.65 Below low normal 1.00-4.80 (K/ul) Final Monos, Abs 07/25/2023 11:45:05 0.59 0.00-1.10 (K/uL) Final Eos, Abs 07/25/2023 11:45:05 0.05 0.00-0.70 (K/uL) Final Basos, Abs 07/25/2023 11:45:05 0.01 0.00-0.20 (K/uL) Final Performing Location [facility] [address] [place] [address]
--- OUTSIDE RECORDS SUMMARY | 2023-09-20 05:54 | External Medical Summary | Summary of Care ---
Author Name Unknown Organization [facility] Address [address] [place] [address] Phone [phone] Care Team Providers Care Washer Assembler Name Role Phone Ray Royal MD Primary Care Provider [phone] Reason for Visit * Reason Comments Chemotherapy C10D1 Folfirinox * Episode Based Medications (Routine) - Closed Specialty Diagnoses / Procedures Referred By Contac t Referred To Contact Diagnoses Adenocarcinoma of pancreas (HCC) Metastasis to liver (HCC) Encounter for antineoplastic chemotherapy Procedures MT LEUCOVORIN CALCIUM INJECTION MT FLUOROURACIL INJECTION MT IRINOTECAN INJECTION MT OXALIPLATIN MT FOSAPREPITANT INJECTION MT PEGFILGRASTIM-BMEZ (ZIEXTENZO), 0.5 MG MT INJECTION, PEGFILGRASTIM-CBQV, BIOSIMILAR, (UDENYCA), 0.5 MG MT PALONOSETRON HCL Teto Torrez MD [address] [place] [address] Anc Hem/Onc [facility] Driver DEPT CLOSED - 05/09/23 [address] [place] [address] Referral ID Status Reason Start Date Expiration Date Visits Re quested Visits Authorized [id number] Closed 12/01/2022 12/06/[phone] Encounter Details Date Type Department Care Team (Latest Contact Info) Description 04/25/2023 8:30 AM EDT Hem/Onc Treatment Hematology/Oncolog y Treatment, [place] [address] [place] [address] Neisha, Chair 9 Hem Onc [address] [place] [address] Adenocarcinoma of pancreas (HCC)*; Metastasis to liver (HCC); Encounter for antineoplastic chemotherapy Allergies No known active allergiesdocumented as of this encounter (statuses as of 07/25/2023) Medications Medication Sig Dispensed Refills Start Date [...] every 8 hours. As needed 0 Active Pancrelipase (Omx-Jdmt-Exxg) [id number] UNIT Oral Capsule Delayed Release Particles (Creon 51817)Indications: Alcohol-induced acute pancreatitis without infection or necrosis Take 1 Capsule by mouth in the morning and 1 Capsule at noon and 1 Capsule in the evening and 1 Capsule before bedtime. 120 Capsule 0 3 05/31/20 23 Discontinued Lidocaine-Prilocai ne 2.5-2.5 % External Cream (Emla)Indications: Adenocarcinoma of pancreas (HCC),Metastasis to liver (HCC) APPLY TO SKIN OVER MEDIPORT & COVER 1HR PRIOR TO ACCESSING. 30 g 1 3 05/31/20 23 Discontinued Silodosin 8 MG Oral Capsule (Rapaflo)Indicatio ns:BPH with obstruction/lower urinary tract symptoms Take 1 Capsule by mouth in the morning. 30 Capsule 6 3 06/27/19 24 Discontinued(Re fill) documented as of this encounter (statuses as of 07/25/2023) Active Problems Problem Noted Date Diagnosed Date Urethral stricture 04/03/2023 Slow urinary stream 04/03/2023 [...] as of this encounter (statuses as of 07/25/2023) Immunizations Name Administration Dates Next Due COVID-19 mRNA, LNP-s, No Pre serve, 2-Dose Series (Tomorrowish) 02/23/2021,02/02/2021 HEP A - Hepatitis A (Adult > 18 yrs) 09/21/2020, 02/10/2020 Hepatitis B, 20+ yrs 09/21/2020,03/23/2020,02/09 Pneumococcal Conjugate Vacci ne, 20-valent ([id number]) 10/26/2022(Deferred: Patient Refused) Pneumococcal Polysaccharide PPV23 (Pneumovax) [...] you got the money to buy more. Never true 04/18/20 23 Within the past 12 months, t he food you bought just didn't last and you didn't have money to get more. Never true 04/18/2023 Sex and Gender Information Value Date Recorded Sex Assigned at Not on file Gender Identity Not on file Sexual Orientation Not on file Job Start Date Occupation Industry Not on file Not on file Not on file documented as of this encounter Nursing Notes * Jessica Rowley RN - 04/25/2023 4:20 PM EDT Functional status at today's visit: Fully active, [...] symptoms or adverse side effects during treatment. Goals: Patient will remain free from injury. Possible barriers to meeting goals: ambulation with IV pole Stability of the patient: Moderately stable - low risk of patient condition declining or worsening Summary regarding today's goals: Met: Pt remained free of injury during treatment Patient tolerated treatment well and was connected to home 5FU infusion pump, dressing secure. He was discharged in stable condition. Coverage by Ramirez Marshall RN. * Jessica Rowley RN - 04/25/2023 9:14 AM EDT Chair 9 Pt was seen by Ramirez DRAKE today, see office notes. Will proceed with treatment as planned. VAD accessed without difficulty, good blood return noted, flushed with NSS and fluids infusing. Safety and Risk for Injury Patient will remain free from injury. Ensure appropriate safety devices are available. Provide and maintain safe environment. * Starla Casanova RN - 04/24/2023 10:52 AM EDT [address]. Per kevin Britton for treatment. documented in this encounter Plan of Treatment Upcoming Encounters Date Type Department Care Team (Late st Contact Info) Description 07/26/2023 3:30 PM EST Office Visit Palliative Medicine [facility] 200 [facility] [place] [address] Shante Prado MD [address] [place] [address] 08/08/2023 10:30 AM EST Laboratory Laboratory [facility] [address] [place] [phone] [place], Lab Scenery 200 [facility] [place] [address] 08/08/2023 11:30 AM EST Hem/Onc Treatment Hematology/Oncology Treatment, [place] 200 [facility], [place] [address] Neisha, Chair 5 Hem [address] [place] [address] 08/09/2023 10:30 AM EST Office Visit Orthopaedics [facility] [address] [place] [address] Judy Clay MD 132 [place] [address] 08/15/2023 10:20 AM EST Laboratory Laboratory [facility] [address] [place] [phone] [place], Lab Scenery [address] [facility] [place] [address] 08/15/2023 11:15 AM EST [facility] 200 [facility], [place] [address] Neisha, Chair 8 Hem Onc [address]en[address] [place], [place] [address] 08/25/2023 9:45 AM EST Telemedicine Urology Luli Sanchez [address] [place] [address] Adolfo Key MD [address] [place] [address] 7, Telemed [facility] Urology Ex Rm 132 [facility] [place] [address] 08/29/2023 10:00 AM EST Laboratory Laboratory, [facility] 132 [place] [address] [facility] 132 [place] [address] 08/30/2023 8:45 AM EST Office Visit Hematology/Oncology [facility] 200 [facility] [place], [place] [address] Teto Torrez MD [address] [place] [address] 08/30/2023 9:15 AM EST Hem/Onc Treatment Hematology/Oncology Treatment, [place] 200 [facility], [place] [address] Neisha, Chair 4 Hem Onc [facility] [address] [place] [address] 11/15/2023 11:30 AM EDT Office Visit Urology, [facility] [address] [place] [address] Adolfo Key MD 27 [facility] [address] [place] [address] [...] this encounter Medical Devices Implanted Type Area Mystery Shopper Device Identifier Shelf Expiration Date Model / Serial / Lot Port Implant W/8f Poly Cath - [id number] Implanted:Qty : 1 on 12/01/2022 by Brad Cerda, at OR [facility] Right: Chest CR BARD : PERIPHERAL VASCULAR [id number] 02/24/2024 [id number] / / [id number] documented as of this encounter Visit Diagnoses [...] mg 0.4 mg, IV Push, ONCE, On Mon04/25/23 at 0915, For 1 dose, Give before CPT-11 Given 04/25/2023 11:50 AM EDT 0.4 mg D5W IV solution Intravenous, at 50 mL/hr, CONTINUOUS, Starting on Mon04/25/23 at 0915, Until Mon04/25/23 at 1914 Start Infusion 04/25/2023 8:40 AM EDT 500 mL 50 mL/hr Fluorouracil (5-Fu) 6,100 mg for Home Infusion 6,100 mg (rounded from 6,096 mg = 2,400 mg/m2 2.54 m2 Treatment Plan BSA from Recorded weight), Intravenous, Administer over 46 Hours, Home Infusion Pharmacy to specify base solution and volume., ONCE, 1 dose, On Mon04/25/23 at 1230 Start Infusion 04/25/2023 1:28 PM EDT 6,100 mg fosaprepitant Dimeglumine (Emend) 150 mg, ondansetron (Zofran) 16 mg, dexamethasone sodium phosphate 12 mg in NSS 250 mL Infusion 150 mg, IV Piggyback, ONCE, 1 dose, On Mon04/25/23 at 0915, Administer over 30 Minutes, Give 30 minutes prior to chemotherapy. Infuse over 30 minutes. Start Infusion 04/25/2023 9:01 AM EDT 150 mg 500 mL/hr irinotecan HCl (Camptosar) 380 mg in D5W 500 mL infusion 380 mg (rounded from 381 mg = 150 mg/m2 2.54 m2 Treatment Plan BSA from Recorded weight), IV Piggyback, ONCE, 1 dose, On Mon04/25/23 at 1100, Administer over 90 Minutes, PROTECT FROM LIGHT Start Infusion 04/25/2023 11:50 AM EDT 380 mg 333.33 mL/hr leucovorin calcium 1,000 mg in D5W 250 mL INFUSION 1,000 mg (rounded from 1,016 mg = 400 mg/m2 2.54 m2 Treatment Plan BSA from Recorded weight), IV Piggyback, ONCE, 1 dose, On Mon04/25/23 at 1100, Administer over 90 Minutes, Run concurrently with irinotecan immediately prior to 5FU Start Infusion 04/25/2023 11:50 AM EDT 1,000 mg 166.67 mL/hr Oxaliplatin (Eloxatin) 200 mg in D5W 500 mL infusion 200 mg (rounded from 215.9 mg = 85 mg/m2 2.54 m2 Treatment Plan BSA from Recorded weight), IV Piggyback, ONCE, 1 dose, On Mon04/25/23 at 0915, Administer over 120 Minutes, Flush with D5W only! 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
--- OUTSIDE RECORDS SUMMARY | 2023-09-20 05:54 | External Medical Summary | Summary of Care ---
Author Name Unknown Organization [facility] Address [address] [place] [address] Phone [phone] Care Team Providers Care Back Tender Cylinder Name Role Phone Ray Royal MD Primary Care Provider [phone] Reason for Visit * Reason Comments Outpatient Testing Encounter Details Date Type Department Care Team (Late st Contact Info) Description 07/25/2023 12:30 PM EST Laboratory Laboratory [facility] [address] [place] [address] [facility] [address] [place] [address] Adenocarcinoma of pancreas (HCC); Metastasis to liver [...] Diagnosed Date Food insecurity 06/05/2023 Overview: [facility] Protocol Urethral stricture 04/03/2023 Slow urinary [...] mRNA, LNP-s, No Pre serve, 2-Dose Series (PulsePoint) 02/23/2021,02/02/2021 HEP A - Hepatitis A (Adult > 18 yrs) 09/21/2020, 02/10/2020 Hepatitis B, 20+ yrs 09/21/2020,03/23/2020,02/09 Pneumococcal Conjugate Vacci ne, 20-valent ([id number]) 10/26/2022(Deferred: Patient Refused) Pneumococcal Polysaccharide PPV23 (Pneumovax) [...] Team (Late st Contact Info) Description 07/25/2023 1:30 PM EST Hem/Onc Treatment Hematology/Oncology [address] [address] Neisha, Chair 5 Hem Onc [address] [place] [address] Arrived 07/26/2023 3:30 PM EST Office Visit Palliative Medicine [address], [place] [address] Shante Prado MD [address] [place] [address] 08/08/2023 10:30 AM EST Laboratory Laboratory [address] [place] [phone] Neisha Lab [address] [place] [address] 08/08/2023 11:30 AM EST Hem/Onc Treatment Hematology/Oncology [address] [address] Neisha, Chair 5 Hem Onc [address] [place] [address] 08/09/2023 10:30 AM EST Office Visit Orthopaedics [facility] 132 [place] [address] Judy Clay MD [address] [place] [address] 08/15/2023 10:20 AM EST Laboratory Laboratory [facility] [place] [address] [place] [phone] Neisha Lab Scenery [address] [facility] [place], [place] [address] 08/15/2023 11:15 AM EST Hem[facility] [address] [place], [place] [address] Neisha, Chair 8 Hem Onc Scenery [address] [place], [place] [address] 08/25/2023 9:45 AM EST Telemedicine Urology Luli Sanchez [address] [place] [address] Adolfo Key MD [address] [place] [address] 7, Telemed [facility] Urology Ex Rm 132 [facility] [address] 08/29/2023 10:00 AM EST [facility] 132 [facility] [phone] [facility] 132 [facility] [place] [address] 08/30/2023 8:45 AM EST Office Visit Hematology/Oncology [facility] [place] [address] [place], [place] [address] Teto Torrez MD [address] [place], [place] [address] 08/30/2023 9:15 AM EST Hem/Onc Treatment [facility] [address] [place], [place] [address] Neisha, Chair 4 Hem Onc Scenery [address] [place] [address] 11/15/2023 11:30 AM EDT Office Visit Urology, [facility] [place] [address] [place] [address] Adolfo Key MD 27 [facility] [address] [place] [address] Pending Results Name Type Priority Associated Diagnoses Date /Time CBC WITH WBC DIFFERENTIAL Lab STAT Adenocarcinoma of pancreas (HCC) Metastasis to liver (HCC) 07/25/2023 11:45 AM EST COMPREHENSIVE METABOLIC PANEL Lab STAT Adenocarcinoma of pancreas (HCC) Metastasis to liver (HCC) 07/25/2023 11:45 AM EST CBC Lab STAT Adenocarcinoma of pancreas (HCC) Metastasis to liver (HCC) 07/25/2023 11:45 AM EST DIFFERENTIAL, AUTOMATED Lab STAT Adenocarcinoma of pancreas (HCC) Metastasis to liver (HCC) 07/25/2023 11:45 AM EST Scheduled Procedures Name Priority Associated [...] this encounter Medical Devices Implanted Type Area Engineering Lab Technician Device Identifier Shelf Expiration Date Model / Serial / Lot Port Implant W/8f Poly Cath - [id number] Implanted:Qty : 1 on 12/01/2022 by Brad Cerda DO at OR [facility] Right: Chest CR BARD : PERIPHERAL VASCULAR [id number] 02/24/2024 [id number] / / [id number] System Urolift - [id number] Implanted:Qty : 6 on 05/31/2023 by Adolfo Key MD at OR [facility] [employer] 09/01/2023 [id number] / / [id number] Description:prostate documented as of this encounter Visit Diagnoses Diagnosis Adenocarcinoma of pancreas (HCC) Malignant neoplasm of pancreas, part unspecified Metastasis to liver (HCC) Secondary malignant neoplasm of liver documented in this encounter Advance Directives Documents on File Type Date Recorded 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
--- OUTSIDE RECORDS SUMMARY | 2023-09-20 05:54 | External Medical Summary | Summary of Care ---
Author Name Unknown Organization [facility] Address [address] [place] [address] Phone [phone] Care Team Providers Care Tallow Pumper Name Role Phone Ray Royal MD Primary Care Provider + [phone] Reason for Visit * Reason Comments Chemotherapy C14/D1 - FOLFIRI * Evaluate & Treat - Unlimited Visits (Within 30 days (routine)) - Authorized Specialty Diagnoses / Procedures Referred By Mike velázquez Referred To Contact Hematology Oncology Diagnoses Gallbladder cancer (HCC) Procedures Eval/Treat Anabell Driver PA-Kayden [address] [place] [address] Referral ID Status Reason Start Date Expiration Date Visits Requested Visits Authorized [id number] Authorized Specialty Services Required 12/01/2022 12/06/[phone] Encounter Details Date Type Department Care Team (Latest Contact Info) Description 07/05/2023 11:30 AM EST Hem/Onc Treatment Hematology/Oncolog y Treatment, [address] [address] Neisha, Chair [address] [address] Adenocarcinoma of pancreas (HCC)*; Metastasis to liver [...] mRNA, LNP-s, No Pre serve, 2-Dose Series (Glide) 02/23/2021,02/02/2021 HEP A - Hepatitis A (Adult > 18 yrs) 09/21/2020, 02/10/2020 Hepatitis B, 20+ yrs 09/21/2020,03/23/2020,02/09 Pneumococcal Conjugate Vacci ne, 20-valent ([id number]) 10/26/2022(Deferred: Patient Refused) Pneumococcal Polysaccharide PPV23 (Pneumovax) [...] or not, then patient can drive to [facility] for his PET scan for 1145. Patient communicated understanding regarding this plan. Patient is ordered Percocet (10 oxycodone/325 Tylenol) Q6 PRN, which was recently added/increased/adjusted just 1 week ago by palliative EVENT HOST Rachel Rucker. Patient says he does not [...] Description 07/25/2023 12:30 PM EST Laboratory Laboratory [facility] Crespo [address] [facility] [place] [phone] [place], Lab Scenery [address] [place] [address] 07/25/2023 1:30 PM EST Hem/Onc Treatment Hematology/Oncology Treatment, [place] [address] [place] [address] Neisha, Chair 5 Hem Onc Scenery [address] [place] [address] 07/26/2023 3:30 PM EST Office Visit Palliative Medicine [facility] [address] [place] [address] Shante Prado MD [address] [place] [address] [place] [address] 08/08/2023 10:30 AM EST Laboratory Laboratory [facility] [address] [place], [place] [phone] Neisha, Lab Scenery [address] [place], [place] [address] 08/08/2023 11:30 AM EST Hem/Onc Treatment Hematology/Oncology Treatment, [place] [address] [facility], [place] [address] Neisha, Chair 5 Hem Onc Scenery [address] [place], [place] [address] 08/09/2023 10:30 AM EST Office Visit Orthopaedics [facility] [address] [place] [address] Judy Clay MD [address] [place] [address] 08/15/2023 10:20 AM EST Laboratory Laboratory [facility] [address] [place], [place] [phone] Neisha, Lab Scenery [address] [place] [address] 08/15/2023 11:15 AM EST Hem/Onc Treatment Hematology/Oncology Treatment, [place] [address] [facility], [place] [address] Neisha, Chair 8 Hem Onc Scenery [address] [facility] [place] [address] 08/25/2023 9:45 AM EST Telemedicine Urology Alba Sanchez [address] [place] [address] [place] [address] Adolfo Key MD [address] [place] [address] 7, Telemed [facility] Ex Rm [facility] [place] [address] 08/29/2023 10:00 AM EST Laboratory [facility] [phone] [facility] [address] [facility], [place] [address] 08/30/2023 8:45 AM EST Office Visit Hematology/Oncology [facility] [address] [facility] [place] [address] Teto Torrez MD [address] [place] [address] 08/30/2023 9:15 AM EST Hem/Onc Treatment Hematology/Oncology Treatment, [place] [address] [facility], [place] [address] Neisha, Chair 4 Hem Onc [place] [address] [facility] [place] [address] 11/15/2023 11:30 AM EDT Office Visit Urology, [facility] 132 [facility] [place] [address] Adolfo Key MD [address] [place] [...] this encounter Medical Devices Implanted Type Area Keg Varnisher Device Identifier Shelf Expiration Date Model / Serial / Lot Port Implant W/8f Poly Cath - [id number] Implanted:Qty : 1 on 12/01/2022 by Brad Cerda DO at OR [facility] Right: Chest CR BARD : PERIPHERAL VASCULAR [id number] 02/24/2024 [id number] / / [id number] System Urolift - [id number] Implanted:Qty : 6 on 05/31/2023 by Adoflo Key MD at OR [facility] [employer] 09/01/2023 [id number] / / [id number] Description:prostate documented as of this encounter Visit [...] 1215, For 1 dose, Restricted per [facility] antiemetic guidelines Given 07/05/2023 11:54 AM EST 0.25 mg documented in this encounter Advance Directives Documents on File Type Date Recorded 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
--- OUTSIDE RECORDS SUMMARY | 2023-09-20 05:54 | External Medical Summary | Summary of Care ---
Author Name Unknown Organization [facility] Address [address] [place] [address] Phone [phone] Care Team Providers Care Adjunct Instructor Chemistry Name Role Phone Ray Royal MD Primary Care Provider [phone] Encounter Details Date Type Department Care Team (Late st Contact Info) Description 07/26/2023 Telephone Palliative Medicine [facility] [address] [place], [place] [phone] Shante Prado MD [address] [place] [address] Allergies No known active allergiesdocumented as of this encounter (statuses as of 07/26/2023) Medications Medication Sig Dispensed Refills Start Date [...] 30 Tablet 0 4 Active oxyCODONE HCl 10 MG Oral Tablet (Roxicodone)Indicat ions:Cancer related pain Take 1 Tablet by mouth every 4 hours as needed for Pain, Severe. 60 Tablet 0 4 Active Ondansetron HCl 8 MG Oral TabletIndications:A [...] 30 MG Oral Tablet Extended Release (Ms Contin)Indications: Cancer related pain Take 1 Tablet by mouth in the morning and 1 Tablet before bedtime. 30 Tablet 0 4 07/26/19 24 Discontinued documented as of this encounter (statuses as of 07/26/2023) Active Problems Problem Noted Date Diagnosed Date Food insecurity 06/05/2023 Overview: Per [facility] Protocol Urethral stricture 04/03/2023 Slow urinary [...] as of this encounter (statuses as of 07/26/2023) Immunizations Name Administration Dates Next Due COVID-19 mRNA, LNP-s, No Pre serve, 2-Dose Series (TerraWi) 02/23/2021,02/02/2021 HEP A - Hepatitis A (Adult > 18 yrs) 09/21/2020, 02/10/2020 Hepatitis B, 20+ yrs 09/21/2020,03/23/2020,02/09 Pneumococcal Conjugate Vacci ne, 20-valent ([id number]) 10/26/2022(Deferred: Patient Refused) Pneumococcal Polysaccharide PPV23 (Pneumovax) [...] encounter Miscellaneous Notes * Telephone Encounter - Shante Prado MD - 07/26/2023 3:43 PM EST Spoke to pt as he did not show for appt, says he was unaware Rescheduled for 08/09 830am Asked how he was in meantime, reports pain is OK. Not taking MS Contin consistently, just using it PRN, advised to not do that. Since it has been 2 days since he last took it,w ill stop it. Advised to take Oxy PRN instead Shante Prado MD Palliative Medicine Physician [facility] Office: [phone] 07/26/2023 documented in this encounter Plan of Treatment Upcoming Encounters Date Type Department Care Team (Late st Contact Info) Description 08/08/2023 10:30 AM EST Laboratory Laboratory [address] [place] [phone] Neisha, Lab [place] [address] Tisha [place] [address] 08/08/2023 11:30 AM EST Hem/Onc Treatment Hematology[address] [address] Neisha, Chair 5 Hem Onc [place] [address] [address] Jo [place] [address] 08/09/2023 8:30 AM EST Office Visit Palliative Medicine [facility] [address] [address] Shante Prado MD [address] [facility] [place] [address] 08/09/2023 10:30 AM EST Office Visit Orthopaedics [facility] 132 [facility] [place] [address] Judy Clay MD [address] [place] [address] 08/15/2023 10:20 AM EST Laboratory Laboratory [facility] [address] [facility] [phone] [place]fe, [facility] 200 [facility] [address] 08/15/2023 11:15 AM EST [facility] 200 [place] [address] Neisha, Chair 8 Hem Onc Scenery 200 [facility] [place] [address] 08/25/2023 9:45 AM EST Telemedicine Urology Luli Sanchez [address] [place] [address] Adolfo Key MD [address] [place] [place] [address] 7, Telemed [facility] U[facility] Ex Rm [facility] [place] [address] 08/29/2023 10:00 AM EST Laboratory Laboratory, [facility] 132 [facility] [place] [phone] Patricio Cardoza [facility] 132 [facility] [place] [address] 08/30/2023 8:45 AM EST Office Visit Hematology/Oncology [facility] [address] [place], [place] [address] Teto Torrez MD [address] [place] [address] 08/30/2023 9:15 AM EST Hem/Onc Treatment Hematology/Oncology Treatment, [place] [address] [place] [address] Neisha, Chair 4 Hem Onc [address]en[address] [place] [address] 11/15/2023 11:30 AM EDT Office Visit Urology, [facility] 132 [facility] [place] [address] Adolfo Key MD [address] [facility] [place] [address] [place] [address] Scheduled Procedures Name Priority Associated [...] this encounter Medical Devices Implanted Type Area Bevel Polisher Device Identifier Shelf Expiration Date Model / Serial / Lot Port Implant W/8f Poly Cath - [id number] Implanted:Qty : 1 on 12/01/2022 by Brad Cerda DO at OR [facility] Right: Chest CR BARD : PERIPHERAL VASCULAR [id number] 02/24/2024 [id number] / / [id number] System Urolift - [id number] Implanted:Qty : 6 on 05/31/2023 by Adolfo Key MD at OR [facility] [employer] 09/01/2023 [id number] / / [id number] Description:prostate documented as of this encounter Advance Directives Documents on File Type Date Recorded Patient Supervisor Fabrication Expl anation POLST 07/13/2023 4:08 PM POLST [...] Discussed due to patient's condition Care Teams Adjunct Instructor Chemistry Relationship Specialty Start Date End Date Ray Royal MD [address] [place] [address] [place] [phone] PCP - General Family Medicine 10/22/18 documented as of this encounter
--- OUTSIDE RECORDS SUMMARY | 2023-09-20 05:54 | External Medical Summary | Summary of Care ---
Author Name Unknown Organization [facility] Address [address] [place] [address] Phone [phone] Care Team Providers Care Production Line Welder Name Role Phone Ray Royal MD Primary Care Provider [phone] Reason for Visit * Reason Comments Follow Up * Evaluate & Treat - Unlimited Visits (Within 30 days (routine)) - Authorized Specialty Diagnoses / Procedures Referred By Contmahad t Referred To Contact Hematology Oncology Diagnoses Gallbladder cancer (HCC) Procedures Eval/Treat Anabell Driver PA-C [address] [place] [address] Referral ID Status Reason Start Date Expiration Date Visits Requested Visits Authorized [id number] Authorized Specialty Services Required 12/01/2022 12/06/[phone] Encounter Details Date Type Department Care Team (Latest Contact Info) Description 07/18/2023 9:15 AM EST Office Visit Hematology/Oncology State Shawanda Crespo [address] [place] [address] Teto Torrez MD 200 [facility] [place] [address] Adenocarcinoma of pancreas (HCC)*; Metastasis to liver (HCC) Allergies No known active allergiesdocumented as of this encounter (statuses as of 07/18/2023) Medications Medication Sig Dispensed Refills Start Date [...] as of this encounter (statuses as of 07/18/2023) Active Problems Problem Noted Date Diagnosed Date [...] as of this encounter (statuses as of 07/18/2023) Immunizations Name Administration Dates Next Due COVID-19 mRNA, LNP-s, No Pre serve, 2-Dose Series ([employer]) 02/23/2021,02/02/2021 HEP A - Hepatitis A (Adult > 18 yrs) 09/21/2020, 02/10/2020 Hepatitis B, 20+ yrs 09/21/2020,03/23/2020,02/09 Pneumococcal Conjugate Vacci ne, 20-valent ([id number]) 10/26/2022(Deferred: Patient Refused) Pneumococcal Polysaccharide PPV23 (Pneumovax) [...] Sign Reading Time Taken Comments Blood Pressure 106/71 07/18/2023 8:55 AM EST Pulse 118 07/18/2023 8:55 AM EST Temperature 36.1 C (97 F) 07/18/2023 8:55 AM EST Respiratory Rate - - Oxygen Saturation - - Inhaled Oxygen Concentration - - Weight 119 kg (262 lb 4.8 oz) 07/18/2023 8:55 AM EST Height - - Body Mass Index 32.79 05/31/2023 10:31 AM EST documented in this encounter Progress Notes * Teto Torrez MD - 07/18/2023 9:15 AM EST Hematology/Oncology Outpatient Clinic note Linda Driver [facility] [place] [address] Name: Brad Holm Date: 04/24/2023 CHIEF COMPLAINT: [...] DATE OF DIAGNOSIS: 10/03/22 CURRENT TREATMENT: - planning to start single agent gemcitabine 1000 mg/m weekly x2 followed by 1 week off. COMPLETED TREATMENT modified FOLFIRINOX.every 14 days (12/06/2022 -05/23/2023-) Now since 06/06/2023, he is receiving 5-Fluorouracil, leucovorin irinotecan chemotherapy. ( every 2weekly) - Last chemo on 07/05/2023. -discontinued because of disease progression in the liver and pancreas DIAGNOSTIC WORKUP: He had upper abdominal pain, abnormal liver function test, elevated lipase level, he was evaluated at [facility], had a CT scan of the abdomen pelvis done on 08/08/2022: -ill-defined hypodense lesion involving the pancreatic tail measuring 2.8 x 2.3 x 2.5 cm. Liver showed hepatic steatosis, no masses identified MRI MRCP done on 08/09/2022 at [facility]: -likely pancreatitis with suspected pancreatic tail lesion. -no Biliary ductal dilatation. -hepatic steatosis, splenomegaly. Spleen size measuring 17.5 cm -no focal liver abnormality noted Because of abdominal pain, he was seen at [facility] ER on the following day. CT scan of the abdomen and pelvis with contrast on 08/10/2022 at [facility]: - 1. Subtle stranding adjacent to the [...] He has come the clinic for the follow-up. Earlier he had a right upper quadrant pain, It has improved, he takes oxycodone on p.r.n. basis, does not take long-acting opioid therapy at this time, no nausea vomiting, no diarrhea at this time, has persistent neuropathy symptoms but stable, current weight 262 lb, no new cardiac or pulmonary symptoms. Denies any bleeding He also has underlying BPH, he was [...] pancreatic mass on CT Pneumonia 04/04/2023 admitted [facility] Portal hypertension with esophageal varices (HCC) 11/19/2019 Primary hypertension Primary osteoarthritis of both knees 03/15/2020 Trigger middle finger of right hand Venous stasis dermatitis of both lower extremities 03/13/2023 Past Surgical History: Procedure Laterality Date COLONOSCOPY, DIAGNOSTIC (RECTUM) 01/21/2019 serrated adenomatous polyp, fair prep, repeat 1 yr/COLONOSCOPY FLEXIBLE PROXIMAL DIAGNOSTIC performed by Sailaja Gutiérrez MD at ENDOSCOPY [facility] COLONOSCOPY, DIAGNOSTIC (RECTUM) 04/17/2020 diverticulosis, repeat 2 yrs / COLONOSCOPY FLEXIBLE PROXIMAL DIAGNOSTIC performed by Conrado Morales MD at ENDOSCOPY [facility] COLONOSCOPY, DIAGNOSTIC (RECTUM) 01/03/2023 normal, repeat 5 years, performed by Sailaja Gutiérrez MD at ENDOSCOPY [facility] CYSTOURETHROSCOPY, W/ TRANSPROSTATIC IMPLANT N/A 05/31/2023 CYSTOURETHROSCOPY, WITH INSERTION OF PERMANENT ADJUSTABLE TRANSPROSTATI IMPLANT; SINGLE IMPLANT performed by Adolfo Key MD at OR [facility] ECHO, COMPLETE (2D), TRANS-THORACIC N/A 01/21/2020 normal LV size and function, EF 60-64%, LAE suggests LV diastolic dysfunction EGD, FLEXIBLE, DIAGNOSTIC 11/19/2019 acid reflux / ESOPHAGOGASTRODUODENOSCOPY (EGD), FLEXIBLE, TRANSORAL, DIAGNOSTIC performed by MD Diego at ENDOSCOPY [facility] EGD, W/ENDOSCOPIC US 11/19/2019 moderate steatohepatitis, GB polyp, enlarged lymph node / ESOPHAGOGASTRODUODENOSCOPY (EGD), FLEXIBLE, TRANSORAL, ENDOSCOPIC ULTRASOUND performed by Conrado Morales MD at ENDOSCOPY [facility] EGD, W/ENDOSCOPIC US 10/03/2022 pancreas adenocarcinoma, fatty liver, GB polyps / ESOPHAGOGASTRODUODENOSCOPY (EGD), FLEXIBLE, TRANSORAL, ENDOSCOPIC ULTRASOUND performed by Conrado Morales MD at ENDOSCOPY [facility] INSER TUNN ACC DEV;5 YRS/OLDER Right 12/01/2022 INSERT TUNNELED CENTRAL VENOUS ACCESS WITH SUBQ PORT performed by Brad Cerda DO at OR [facility] PARTIAL REMOVAL OF PANCREAS N/A 10/26/2022 LAPAROSCOPIC PANCREATECTOMY DISTAL SUBTOTAL performed by Jordan Howard MD at OR [facility] US ABDOMEN DOPPLER LIMITED 06/21/2019 mild hepatomegaly [...] on file Tobacco Use Smoking status: Former Types: Cigarettes Quit date: 10/2022 Years since quittin.7 Smokeless tobacco: Former Vaping Use Vaping Use: [...] needed for Muscle spasms. 30 Tablet 0 Morphine Sulfate ER 30 MG Oral Tablet Extended Release (Ms Contin) Take 1 Tablet by mouth in the morning and 1 Tablet before bedtime. 30 Tablet 0 oxyCODONE HCl 10 MG Oral Tablet (Roxicodone) Take 1 Tablet by mouth every 4 hours as needed for Pain, Severe. 60 Tablet 0 No current facility-administered medications for this visit. REVIEW OF SYSTEMS: See HPI - otherwise negative OBJECTIVE: There were no vitals taken for this visit. PHYSICAL EXAM: ECOG: Performance Status 1 = [...] Grossly intact LABS: Blood workup done on 07/17/2023: -WBC 4600, H&H of 12.2/38.7, Platelet count of 710862. -BUN/Creat: 22/0.9, Calcium 9.6, normal liver function -magnesium level --> 1.6 CT scan of the abdomen and pelvis [...] the abdomen pelvis done on 07/02/2023: (at [facility]). 1. No significant change since prior CT [...] him and his regarding the recent the [facility] CT scan findings of the abdomen, reviewed the blood workup done yesterday, so far he is received 11 cycles of modified FOLFIRINOX chemotherapy, overall stable findings noted , then we discontinued oxaliplatin because of neuropathy symptoms Currently he is receiving 5-Fluorouracil, leucovorin irinotecan combination last treatment was received in week of June 2023 I reviewed with him regarding the PET-CT scan done on 07/07/2023, overall disease progression noted in the liver, clinically he is doing quite well, he [...] yesterday, stable blood workup noted Dr. Teto Torrez Hem/Onc (This note was completed using the dictation program Fluency Direct. As such, there may be misspellings word substitutions, or other variations that should not change the essence of the clinical content of this encounter note. If there is need for further clarification, please direct questions to the provider listed above.) documented in this encounter Nursing Notes * Skip Tim MED ASSIST - 07/18/2023 8:56 AM EST Patient identified by name and date of . Do you have any concerns about pain management for today's visit? No Living Will or Advance Directive for Health Care as noted on problem list. My [facility] is a way you can talk to your provider online through e-mail. Would you like to sign up? I can activate it for you? ALREADY ACTIVE BP 106/71 (BP Site: Right Arm, BP Position: Sitting, BP Cuff Size: Regular) | Pulse 118 | Temp 36.1C (97 F) (Tympanic) | Wt 119 kg (262 lb 4.8 oz) | BMI 32.79 kg/m | BSA 2.51 m Patient was instructed to not get up [...] Description 07/25/2023 12:30 PM EST Laboratory Laboratory [address] [place] [phone] Neisha, Lab Scenery 200 [facility] [place] [address] 07/25/2023 1:30 PM EST Hem/Onc Treatment Hematology/Oncology [address] [address] Neisha, Chair 5 Hem Onc [address] [place] [address] 07/26/2023 3:30 PM EST Office Visit Palliative Medicine [facility] [address] [address] Shante Prado MD [address] [place], [place] [address] [id number] 08/08/2023 10:30 AM EST Laboratory Laboratory [facility] [place] [address] [place] [phone] Neisha, Lab Scenery 200 [facility] [place] [address] 08/08/2023 11:30 AM EST Hem/Onc Treatment Hematology/Oncology Treatment, [address] [place] [address] Neisha, Chair 5 Hem Onc Sc[address]ery [address] [place], [place] [address] 08/09/2023 10:30 AM EST Office Visit Orthopaedics [facility] [address] [facility] [place] [address] Judy Clay MD 132 [facility] [place] [address] 08/15/2023 10:20 AM EST Laboratory Laboratory [facility] [address] [place] [phone] Neisha, Lab Scenery [address] [place] [address] 08/15/2023 11:15 AM EST [facility] [address] [place], [place] [address] Neisha, Chair 8 Hem Onc Sc[address]ery [address] [place], [place] [address] 08/25/2023 9:45 AM EST Telemedicine Urology Luli Sanchez [address] [place] [address] Adolfo Key MD [address] [place] [address] 7, Telemed [facility]rology Ex Rm [facility] [place] [address] 08/29/2023 10:00 AM EST Laboratory Laboratory, [facility] [address] [facility] [place] [phone] Patricio Cardoza [facility] [address] [facility] [place] [address] 08/30/2023 8:45 AM EST Office Visit Hematology/Oncology [facility] [address] [place] [address] Teto Torrez MD [address] [place] [address] 08/30/2023 9:15 AM EST Hem/Onc Treatment Hematology/Oncology Treatment, [place] [address] [place] [address] Neisha, Chair 4 Hem Onc [facility] 200 [facility] [place] [address] 11/15/2023 11:30 AM EDT Office Visit Urology, [facility] 132 [facility] [place] [address] Adolfo Key MD [address] [place] [id number] Scheduled Procedures Name Priority Associated Diagnoses Date/Ti [...] this encounter Medical Devices Implanted Type Area Comfort Station Supervisor Device Identifier Shelf Expiration Date Model / Serial / Lot Port Implant W/8f Poly Cath - [id number] Implanted:Qty : 1 on 12/01/2022 by Brad Cerda DO at OR [facility] Right: Chest CR BARD : PERIPHERAL VASCULAR [id number] 02/24/2024 [id number] / / [id number] System Urolift - [id number] Implanted:Qty : 6 on 05/31/2023 by Adolfo Key MD at OR [facility] [employer] 09/01/2023 [id number] / / [id number] Description:prostate documented as of this encounter Visit Diagnoses Diagnosis Adenocarcinoma of pancreas (HCC)- Primary Malignant neoplasm of pancreas, part unspecified Metastasis to liver (HCC) Secondary malignant neoplasm of liver documented in this encounter Advance Directives Documents on File Type Date Recorded Patient Dividend Clerk Expl anation POLST 07/13/2023 4:08 PM [...] Discussed due to patient's condition Care Teams Production Line Welder Relationship Specialty Start Date End Date Ray Royal MD [address] [place] [address] [place] [address] PCP - General Family Medicine 10/22/18 documented as of this encounter"
--- OUTSIDE RECORDS SUMMARY | 2023-09-20 05:54 | External Medical Summary ---
Author Name Unknown Address Unknown Organization [id number]:[facility] [address] [place] [address] Laboratory Report Ordering Provider Test Date Status TJ MSITH 07/17/2023 08:58:30 Final Observation Date Value Abnormality Reference (Units ) Status SYNC LEUKOCYTES IN BLOOD BY AUTOMATED COUNT 07/17/2023 08:58:30 4.68 4.00-10.80 (K/uL) Final Segs 07/17/2023 08:58:30 73.6 40.0-75.0 (%) Final Lymphs % 07/17/2023 08:58:30 14.7 Below low normal 18.0-42.0 (%) Final Monos 07/17/2023 08:58:30 9.8 1.0-11.0 (%) Final Eosinophils 07/17/2023 08:58:30 1.7 0.0-6.0 (%) Final Basos 07/17/2023 08:58:30 0.2 0.0-2.0 (%) Final Absolute Segs 07/17/2023 08:58:30 3.44 1.80-7.70 (K/uL) Final Lymphs, absolute 07/17/2023 08:58:30 0.69 Below low normal 1.00-4.80 (K/ul) Final Monos, Abs 07/17/2023 08:58:30 0.46 0.00-1.10 (K/uL) Final Eos, Abs 07/17/2023 08:58:30 0.08 0.00-0.70 (K/uL) Final Basos, Abs 07/17/2023 08:58:30 0.01 0.00-0.20 (K/uL) Final Performing Location [facility] [address] [place] [address]
--- OUTSIDE RECORDS SUMMARY | 2023-09-20 05:54 | External Medical Summary ---
Author Name Unknown Address Unknown Organization [id number]:[facility] [place] [address] Laboratory Report Ordering Provider Test Date Status TJ SMITH 07/25/2023 11:45:05 Final Observation Date Value Abnormality Reference (Units ) Status WBC, Total 07/25/2023 11:45:05 4.14 4.00-10.8 0 (K/uL) Final RBC 07/25/2023 11:45:05 3.72 4.50-5.25 (M/uL) Final Hemoglobin 07/25/2023 11:45:05 11.5 Below low normal 14 .0-16.8 (g/dL) Final HCT 07/25/2023 11:45:05 37.6 Below low normal 40. 0-48.4 (%) Final MCV 07/25/2023 11:45:05 101.1 82.0-99.5 (fL) Final MCH 07/25/2023 11:45:05 30.9 27.0-34.0 (pg) Final MCHC 07/25/2023 11:45:05 30.6 32.0-36.0 (g/dL) Final RDW 07/25/2023 11:45:05 14.3 11.5-15.5 (%) Final Platelets 07/25/2023 11:45:05 123 Below low normal 140 -400 (K/uL) Final MPV 07/25/2023 11:45:05 10.5 6.6-11.1 ( fL) Final Performing Location [facility] [place] [address]
--- OUTSIDE RECORDS SUMMARY | 2023-09-20 05:54 | External Medical Summary ---
Author Name Unknown Address Unknown Organization [id number]:[facility] [place] [address] Laboratory Report Ordering Provider Test Date Status TJ SMITH 07/25/2023 11:45:05 Final Observation Date Value Abnormality Reference (Units ) Status Nucleated erythrocytes/100 leukocytes [Ratio] in Blood by Automated count 07/25/2023 11:45:05 Final Performing Location [facility] [place] [address]
--- OUTSIDE RECORDS SUMMARY | 2023-09-20 05:54 | External Medical Summary | Summary of Care ---
Author Name Unknown Organization [facility] Address [address] [place] [address] Phone [phone] Care Team Providers Care Macaroni Maker Name Role Phone Ray Royal MD Primary Care Provider [phone] Reason for Visit * Reason Comments Chemotherapy Gemzar. * Evaluate & Treat - Unlimited Visits (Within 30 days (routine)) - Authorized Specialty Diagnoses / Procedures Referred By Mike velázquez Referred To Contact Hematology Oncology Diagnoses Gallbladder cancer (HCC) Procedures Eval/Treat Anabell Driver PA-C [address] [place] [address] [address] Referral ID Status Reason Start Date Expiration Date Visits Requested Visits Authorized [id number] Authorized Specialty Services Required 12/01/2022 12/06/[phone] Encounter Details Date Type Department Care Team (Latest Contact Info) Description 07/25/2023 1:30 PM EST Hem/Onc Treatment Hematology/Oncolog y Treatment, [address] [address] Neisha, Chair 5 Hem Onc [address] [address] Adenocarcinoma of pancreas (HCC)*; Encounter for antineoplastic [...] Diagnosed Date Food insecurity 06/05/2023 Overview: Per Drive [facility] Protocol Urethral stricture 04/03/2023 Slow [...] mRNA, LNP-s, No Pre serve, 2-Dose Series ([email or web address]) 02/23/2021,02/02/2021 HEP A - Hepatitis A (Adult > 18 yrs) 09/21/2020, 02/10/2020 Hepatitis B, 20+ yrs 09/21/2020,03/23/2020,02/09 Pneumococcal Conjugate Vacci ne, 20-valent ([id number]) 10/26/2022(Deferred: Patient Refused) Pneumococcal Polysaccharide PPV23 (Pneumovax) [...] 3:30 PM EST Office Visit Palliative Medicine [facility] [place] [address] [place] [address] Shante Prado MD [address] [place] [address] [place] [address] 08/08/2023 10:30 AM EST Laboratory Laboratory [facility] [place] 200 [facility] [place] [phone] [facility] 200 [facility] [place] [address] 08/08/2023 11:30 AM EST [facility] [address] [place] [address] Neisha, Chair 5 Hem Onc Scen[address] [place], [place] [address] 08/09/2023 10:30 AM EST Office Visit Orthopaedics [facility] [address] [place] [address] Judy Clay MD [address] [place] [address] 08/15/2023 10:20 AM EST Laboratory Laboratory [facility] [address] [place] [phone] Neisha Lab [facility] [address] [place], [place] [address] 08/15/2023 11:15 AM EST Hem[facility]c [facility] [address] [facility] [place] [address] Neisha, Chair 8 Hem Onc Scenery [address] [place], [place] [address] 08/25/2023 9:45 AM EST Telemedicine Urology Luli Sanchez [address] [place] [address] Adolfo Key MD [address] [place] [address] 7, Telemed [facility] Urology Ex Rm [address] [place] [address] 08/29/2023 10:00 AM EST Laboratory Laboratory, [facility] [address] [place] [phone] Patricio Cardoza [facility] [address] [place] [address] 08/30/2023 8:45 AM EST Office Visit Hematology/Oncology [facility] [address] [place] [address] Teto Torrez MD 200 [facility] [place] [address] 08/30/2023 9:15 AM EST Hem/Onc Treatment Hematology/Oncology Treatment, [place] [address] [place] [address] Neisha, Chair 4 Hem Onc [facility] 200 [facility] [place] [address] 11/15/2023 11:30 AM EDT Office Visit Urology, [facility] [address] [place] [address] Adolfo Key MD 27 [facility] [address] [place] [address] Scheduled Procedures Name Priority Associated Diagnoses Date/Ti [...] this encounter Medical Devices Implanted Type Area Food And Beverage Outlets Manager Device Identifier Shelf Expiration Date Model / Serial / Lot Port Implant W/8f Poly Cath - [id number] Implanted:Qty : 1 on 12/01/2022 by Brad Cerda DO at OR [facility] Right: Chest CR BARD : PERIPHERAL VASCULAR [id number] 02/24/2024 [id number] / / [id number] System U[employer]ift - [id number] Implanted:Qty : 6 on 05/31/2023 by Adolfo Key MD at OR [facility] [employer] 09/01/2023 [id number] / / [id number] Description:prostate documented as of this encounter Visit [...] ONCE PRN Other, Hypersensitivity Reaction, Starting on Mon07/25/23 at 1228, Until Mon07/26/23 at 1227, For 24 hours EPINEPHrine 1 MG/ML inj 0.3 mg 0.3 mg, Intramuscular, ONCE PRN Other, Hypersensitivity Reaction or Anaphylaxis, Starting on Mon07/25/23 at 1228, Until Mon07/26/23 at 1227, For 24 hours hEParin 100 UNIT/ML Lock Flush inj 500 Units 500 Units (5 mL), IV Lock, PRN Other, IV Flush, Starting on Mon07/25/23 at 1228, Until Mon07/26/23 at 1227, For 24 hours, Do not flush if lock, PICC, or central line not in place; IV infusing or unable to flush. Given 07/25/2023 2:20 PM EST 500 Units Hydrocortisone Sod Suc (PF) (Solu-Cortef) inj 100 mg 100 mg, IV Push, ONCE PRN Other, Hypersensitivity Reaction, Starting on Mon07/25/23 at 1228, Until Mon07/26/23 at 1227, For 24 hours LORAzepam (Ativan) tab 0.5 mg 0.5 mg, Oral, ONCE PRN Anxiety, Nausea, Starting on Mon07/25/23 at 1330, Until Discontinued NSS infusion Intravenous, at 50 mL/hr, PRN, Starting on Mon07/25/23 at 1330, Until Discontinued, Maintenance line Start Infusion 07/25/2023 1:10 PM EST 50 mL/hr oxygen GAS Inhalation, OXYGEN, First dose on Mon07/25/23 at 1600, Until Discontinued, Device/Managed by: Low [...] Flush, Starting on Mon07/25/23 at 1228, Until Mon07/26/23 at 1227, For 24 hours, Do not flush if lock, PICC, or central line not in place; IV infusing or unable to flush. Given 07/25/2023 2:20 PM EST 10 mL Inactive Administered Medications [...] 1:47 PM EST 2,600 mg 500 mL/hr ondansetron (Zofran) tab 8 mg 8 mg, Oral, ONCE, On Mon07/25/23 at 1300, For 1 dose, Give 30 minutes prior to chemotherapy. Given 07/25/2023 1:18 PM EST 8 mg documented in this encounter Advance Directives Documents on File Type Date Recorded Patient General Car Yard Supervisor Expl anation POLST 07/13/2023 4:08 PM [...] Discussed due to patient's condition Care Teams Macaroni Maker Relationship Specialty Start Date End Date Ray Royal MD [address] [place] [address] [place] [address] PCP - General Family Medicine 10/22/18 documented as of this encounter
--- OUTSIDE RECORDS SUMMARY | 2023-09-20 05:54 | External Medical Summary | Summary of Care ---
Author Name Unknown Organization [facility] Address [address] [place] [address] Phone [phone] Care Team Providers Care Union Carpenter Name Role Phone Ray Royal MD Primary Care Provider + [phone] Reason for Visit * Reason Comments Chemotherapy C1/D1 - Gemzar * Evaluate & Treat - Unlimited Visits (Within 30 days (routine)) - Authorized Specialty Diagnoses / Procedures Referred By Mike velázquez Referred To Contact Hematology Oncology Diagnoses Gallbladder cancer (HCC) Procedures Eval/Treat Anabell Driver PA-C [address] [place] [id number] Referral ID Status Reason Start Date Expiration Date Visits Requested Visits Authorized [id number] Authorized Specialty Services Required 12/01/2022 12/06/2023 999 999 Encounter Details Date Type Department Care Team (Latest Contact Info) Description 07/18/2023 9:45 AM EST Hem/Onc Treatment Hematology/Oncolog y Treatment, [address] [address] Neisha, Chair [address] [address] Adenocarcinoma of pancreas (HCC)*; Encounter for antineoplastic [...] mRNA, LNP-s, No Pre serve, 2-Dose Series (BrandBeau) 02/23/2021,02/02/2021 HEP A - Hepatitis A (Adult > 18 yrs) 09/21/2020, 02/10/2020 Hepatitis B, 20+ yrs 09/21/2020,03/23/2020,02/09 Pneumococcal Conjugate Vacci ne, 20-valent ([id number]) 10/26/2022(Deferred: Patient Refused) Pneumococcal Polysaccharide PPV23 (Pneumovax) [...] Description 07/25/2023 12:30 PM EST Laboratory Laboratory [facility] [address] [place] [phone] Neisha, Lab Scenery [address] [place], [place] [address] 07/25/2023 1:30 PM EST Hem/Onc Treatment Hematology/Oncology Treatment, [place] [address] [facility] [place], [place] [address] Neisha, Chair 5 Hem Onc Scenery [address] [place], [place] [address] 07/26/2023 3:30 PM EST Office Visit Palliative Medicine [facility] 200 [facility] [place], [place] [address] Shante Prado MD [address] [place] [address] 08/08/2023 10:30 AM EST Laboratory Laboratory [facility] [address] [place], [place] [phone] Neisha, Lab Scenery [address] [place], [place] [address] 08/08/2023 11:30 AM EST Hem/Onc Treatment Hematology/Oncology Treatment, [place] [address] [facility] [place], [place] [address] Neisha, Chair 5 Hem Onc Scenery [address] [place] [address] 08/09/2023 10:30 AM EST Office Visit Orthopaedics [facility] [address] [place] [address] Judy Clay MD [address] [place] [address] 08/15/2023 10:20 AM EST Laboratory Laboratory [facility] [address] [place], [place] [phone] Neisha Lab Scenery [address] [place], [place] [address] 08/15/2023 11:15 AM EST Hem/Onc Treatment Hematology/Oncology Treatment, [place] [address] [facility], [place] [address] Neisha, Chair 8 Hem Onc Scenery [address] [place], [place] [address] 08/25/2023 9:45 AM EST Telemedicine Urology Luli Sanchez [address] [place] [address] Adolfo Key MD [address] [place] [address] [place] [address] 7, Telemed [facility] Ex Rm 132 [place] [address] 08/29/2023 10:00 AM EST Laboratory Laboratory, [facility] 132 [place] [phone] [facility] 132 [place] [address] 08/30/2023 8:45 AM EST Office Visit Hematology/Oncology [facility] [address] [place], [place] [address] Teto Torrez MD [address] [place], [place] [address] 08/30/2023 9:15 AM EST Hem/Onc Treatment Hematology[facility]Oncology Treatment, [place] [facility] [place] [address] Neisha, Chair 4 Hem Onc Scenery [address] [place] [address] 11/15/2023 11:30 AM EDT Office Visit Urology, [facility] [address] [place] [address] Adolfo Key MD [address] [place] [...] this encounter Medical Devices Implanted Type Area Inside Upholsterer Device Identifier Shelf Expiration Date Model / Serial / Lot Port Implant W/8f Poly Cath - [id number] Implanted:Qty : 1 on 12/01/2022 by Brad Cerda DO at OR [facility] Right: Chest CR BARD : PERIPHERAL VASCULAR [id number] 02/24/2024 [id number] / / [id number] System Urolift - [id number] Implanted:Qty : 6 on 05/31/2023 by Adolfo Key MD at OR [facility] [employer] 09/01/2023 [id number] / / [id number] Description:prostate documented as of this encounter Visit [...] ONCE PRN Other, Hypersensitivity Reaction, Starting on Mon07/18/23 at 0937, Until Mon07/19/23 at 0936, For 24 hours EPINEPHrine 1 MG/ML inj 0.3 mg 0.3 mg, Intramuscular, ONCE PRN Other, Hypersensitivity Reaction or Anaphylaxis, Starting on Mon07/18/23 at 0937, Until Mon07/19/23 at 0936, For 24 hours hEParin 100 UNIT/ML Lock Flush inj 500 Units 500 Units (5 mL), IV Lock, PRN Other, IV Flush, Starting on Mon07/18/23 at 0937, Until Mon07/19/23 at 0936, For 24 hours, Do not flush if lock, PICC, or central line not in place; IV infusing or unable to flush. Given 07/18/2023 10:50 AM EST 500 Units Hydrocortisone Sod Suc (PF) (Solu-Cortef) inj 100 mg 100 mg, IV Push, ONCE PRN Other, Hypersensitivity Reaction, Starting on Mon07/18/23 at 0937, Until Mon07/19/23 at 0936, For 24 hours LORAzepam (Ativan) tab 0.5 mg 0.5 mg, Oral, ONCE PRN Anxiety, Nausea, Starting on Mon07/18/23 at 1045, Until Discontinued NSS infusion Intravenous, at 50 mL/hr, PRN, Starting on Mon07/18/23 at 1045, Until Discontinued, Maintenance line Start Infusion 07/18/2023 9:51 AM EST 50 mL/hr oxygen GAS Inhalation, OXYGEN, First dose on Mon07/18/23 at 1015, Until Discontinued, Device/Managed by: Low Flow Device, [...] Flush, Starting on Mon07/18/23 at 0937, Until Mon07/19/23 at 0936, For 24 hours, Do not flush if lock, PICC, or central line not in place; IV infusing or unable to flush. Given 07/18/2023 10:50 AM EST 10 mL Inactive Administered Medications [...] 10:17 AM EST 2,600 mg 500 mL/hr ondansetron (Zofran) tab 8 mg 8 mg, Oral, ONCE, On Mon07/18/23 at 1045, For 1 dose, Give 30 minutes prior to chemotherapy. Given 07/18/2023 9:51 AM EST 8 mg documented in this encounter Advance Directives Documents on File Type Date Recorded Patient Mill Set Up Expl anation POLST 07/13/2023 4:08 PM POLST [...] Discussed due to patient's condition Care Teams Union Carpenter Relationship Specialty Start Date End Date Ray Royal MD [address] [place] [address] [place] [address] PCP - General Family Medicine 10/22/18 documented as of this encounter
--- OUTSIDE RECORDS SUMMARY | 2023-09-20 05:54 | External Medical Summary | Summary of Care ---
Author Name Unknown Organization [facility] Address [address] [place] [address] Phone [phone] Care Team Providers Care Fitting Supervisor Name Role Phone Ray Royal MD Primary Care Provider [phone] Reason for Visit * Reason Comments IV Therapy Hydration/Magnesium * Episode Based Medications (Routine) - Closed Specialty Diagnoses / Procedures Referred By Contac t Referred To Contact Diagnoses Adenocarcinoma of pancreas (HCC) Metastasis to liver (HCC) Encounter for antineoplastic chemotherapy Procedures NE LEUCOVORIN CALCIUM INJECTION NE FLUOROURACIL INJECTION NE IRINOTECAN INJECTION NE OXALIPLATIN NE FOSAPREPITANT INJECTION NE PEGFILGRASTIM-BMEZ (ZIEXTENZO), 0.5 MG NE INJECTION, PEGFILGRASTIM-CBQV, BIOSIMILAR, (UDENYCA), 0.5 MG NE PALONOSETRON HCL Teto Torrez MD [address] [place] [address] Anc Hem/Onc [facility] Driver DEPT CLOSED - 05/09/23 [address] [place] [address] Referral ID Status Reason Start Date Expiration Date Visits Re quested Visits Authorized [id number] Closed 12/01/2022 12/06/2023 999 99 Encounter Details Date Type Department Care Team (Latest Contact Info) Description 04/27/2023 11:30 AM EDT Hem/Onc Treatment Hematology/Oncolog y Treatment, [place] [address] [place] [address] Neisha Chair 11 Hem Onc Scenery [address] [place] [address] Adenocarcinoma of pancreas (HCC)*; Metastasis to liver (HCC); Encounter for antineoplastic chemotherapy Allergies No known active allergiesdocumented as of this encounter (statuses as of 07/28/2023) Medications Medication Sig Dispensed Refills Start Date [...] Chewable Take by mouth daily. 0 Active Pancrelipase (Mel-Qqxc-Wxiu) [id number] UNIT Oral Capsule Delayed Release Particles (Creon 92309)Indications: Alcohol-induced acute pancreatitis without infection or necrosis [...] as of this encounter (statuses as of 07/28/2023) Active Problems Problem Noted Date Diagnosed Date [...] as of this encounter (statuses as of 07/28/2023) Immunizations Name Administration Dates Next Due COVID-19 mRNA, LNP-s, No Pre serve, 2-Dose Series (Door 6) 02/23/2021,02/02/2021 HEP A - Hepatitis A (Adult > 18 yrs) 09/21/2020, 02/10/2020 Hepatitis B, 20+ yrs 09/21/2020,03/23/2020,02/09 Pneumococcal Conjugate Vacci ne, 20-valent ([id number]) 10/26/2022(Deferred: Patient Refused) Pneumococcal Polysaccharide PPV23 (Pneumovax) [...] Sign Reading Time Taken Comments Blood Pressure 114/73 04/27/2023 11:30 AM EDT Pulse 78 04/27/2023 11:30 AM EDT Temperature 36.1 C (96.9 F) 04/27/2023 11:30 AM E DT Respiratory Rate 16 04/27/2023 11:30 AM EDT Oxygen Saturation 97% 04/27/2023 11:30 AM EDT Inhaled Oxygen Concentration - - Weight - - Height - - Body Mass Index - - documented in this encounter Nursing Notes * Elham Mcdowell RN - 04/27/2023 4:48 PM EDT Chair 1. Patient here for pump d/c and hydration as well as 2 gm Magnesium. 5FU pump completed. NSS connected and magnesium started. Safety and Risk for Injury Patient will [...] Description 08/08/2023 10:30 AM EST Laboratory Laboratory [facility] [address] [place], [place] [phone] Neisha, Lab Scenery [address] [place], [place] [address] 08/08/2023 11:30 AM EST Hem/Onc Treatment Hematology/Oncology Treatment, [address], [place] [address] Neisha, Chair 5 Hem Onc Scenery [address] [place], [place] [address] 08/09/2023 8:30 AM EST Office Visit Palliative Medicine [facility] [place] 200 [facility], [place] [address] Shante Prado MD [address] [place] [address] [place] [address] 08/09/2023 10:30 AM EST Office Visit Orthopaedics [facility] [address] [address] Judy Clay MD [address] [place] [address] 08/15/2023 10:20 AM EST Laboratory Laboratory [facility] Neisha [place] [address] [place] [phone] Neisha Lab Scenery [address] [facility] [place], [place] [address] 08/15/2023 11:15 AM EST Hem/Onc Treatment Hematology/Oncology Treatment, [address], [place] [address] Neisha, Chair 8 Hem Onc Scenery [address] [place], [place] [address] 08/25/2023 9:45 AM EST Telemedicine Urology Luli Sanchez [address] [place] [address] [place] [address] Adolfo Key MD [address] [address] [place] [address] 7, Telemed [facility] Urology Ex Rm 132 [facility] [place] [address] 08/29/2023 10:00 AM EST Laboratory Laboratory, [facility] 132 [place] [phone] [facility] 132 [facility], [place] [address] 08/30/2023 8:45 AM EST Office Visit Hematology/Oncology [facility] 200 [place] [address] Teto Torrez MD 200 [place] [address] 08/30/2023 9:15 AM EST Hem/Onc Treatment Hematology/Oncology Treatment, [place] [address] [place] [address] Neisha, Chair 4 Hem On[address] [place] [address] 11/15/2023 11:30 AM EDT Office Visit Urology, [facility] 132 [facility] [place] [address] Adolfo Key MD [address] [place] [address] [place] [address] Scheduled Procedures Name Priority Associated Diagnoses Date/Ti [...] this encounter Medical Devices Implanted Type Area Crystalizer Device Identifier Shelf Expiration Date Model / Serial / Lot Port Implant W/8f Poly Cath - [id number] Implanted:Qty : 1 on 12/01/2022 by Brad Cerda, DO at OR [facility] Right: Chest CR BARD : PERIPHERAL VASCULAR [id number] 02/24/2024 [id number] / / [id number] documented as of this encounter Visit Diagnoses [...] PRN Other, IV Flush, Starting on Radha 04/27/23 at 1150, Until Radha 04/27/23 at 2054, For 24 hours, Do not flush if lock, PICC, or central line not in place; IV infusing or unable to flush. Given 04/27/2023 1:58 PM EDT 500 Units magnesium sulfate 1 g in d5w 100mL LOCKED DOSE 1 g, IV Piggyback, Q1H, 2 doses, First dose on Radha 04/27/23 at 1400, Last dose on Mon04/27/23 at 1500, Administer over 60 Minutes Start Infusion 04/27/2023 12:55 PM EDT 1 g 100 mL/hr Start Infusion 04/27/2023 11:50 AM EDT 1 g 100 mL/h r NSS infusion FOR HYDRATION Intravenous, at 500 mL/hr Administer over 2 Hours, ONCE, 1 dose, On Radha 04/27/23 at 1230 Start Infusion 04/27/2023 11:55 AM EDT 1,000 mL 500 mL/hr sodium chloride 0.9 % flush central line 10 mL 10 mL, IV Push, PRN Other, IV Flush, Starting on Radha 04/27/23 at 1150, Until Radha 04/27/23 at 2054, For 24 hours, Do not flush if lock, PICC, or central line not in place; IV infusing or unable to flush. Given 04/27/2023 1:58 PM EDT 10 mL documented in this encounter Advance Directives Documents on File Type Date Recorded Patient Service Order Dispatcher Chief Expl anation POLST 07/13/2023 4:08 PM POLST [...] Discussed due to patient's condition Care Teams Fitting Supervisor Relationship Specialty Start Date End Date Ray Royal MD [address] [place] [address] [place] [phone] PCP - General Family Medicine 10/22/18 documented as of this encounter
--- OUTSIDE RECORDS SUMMARY | 2023-09-20 05:54 | External Medical Summary ---
Author Name Unknown Address Unknown Organization [id number]:[facility] [address] - [address] [place] [address] Laboratory Report Ordering Provider Test Date Status TJ SMITH 07/17/2023 08:58:30 Final Observation Date Value Abnormality Reference (Units ) Status BUN 07/17/2023 08:58:30 22 Above high normal 6-20 (mg/dL) Final Creatinine 07/17/2023 08:58:30 0.9 0.6-1.2 (mg/dL) Final Glomerular filtration rate/1.73 sq M.predicted [Volume Rate/Area] in Serum, Plasma or Blood by Creatinine-based formula (CKD-EPI) 07/17/2023 08:58:30 >90 >=60 (mL/min) Final eGFR is calculated based on the CKD-EPI 2020 equation SODIUM 07/17/2023 08:58:30 139 135-146 (m mol/L) Final Potassium 07/17/2023 08:58:30 4.2 3.5-5.1 (m mol/L) Final Cl 07/17/2023 08:58:30 102 98-107 (mm ol/L) Final CO2 07/17/2023 08:58:30 23 22-32 (mmo l/L) Final Anion gap 07/17/2023 08:58:30 14 7-15 (mmol /L) Final Glucose 07/17/2023 08:58:30 152 Above high normal 70 -120 (mg/dL) Final Albumin 07/17/2023 08:58:30 3.9 3.8-5.0 (g /dL) Final AST (Aspartate aminotransferase) 07/17/2023 08:58:30 31 10-50 (U/L) Fin al Alk Phos 07/17/2023 08:58:30 120 35-130 (U/ L) Final Bilirubin, Total 07/17/2023 08:58:30 0.5 <=1 .2 (mg/dL) Final Calcium 07/17/2023 08:58:30 9.6 8.4-10.2 ( mg/dL) Final Protein 07/17/2023 08:58:30 7.0 6.0-8.3 (g /dL) Final ALT (Alanine aminotransferase) 07/17/2023 08:58:30 33 10-50 (U/L) Darien harris Performing Location LAB[facility]ATORY [facility] [address] 0 - [address] [facility] [address]
--- OUTSIDE RECORDS SUMMARY | 2023-09-20 05:54 | External Medical Summary ---
Author Name Unknown Address Unknown Organization K01:[facility] - [address] [facility] [address] Laboratory Report Ordering Provider Test Date Status ROYER,MATT 07/17/2023 08:58:30 Final Observation Date Value Abnormality Reference (Units ) Status Magnesium 07/17/2023 08:58:30 1.6 1.5-2.6 (m g/dL) Final Performing Location [facility] - [address] [facility] [address]
--- OUTSIDE RECORDS SUMMARY | 2023-09-20 05:54 | External Medical Summary ---
Author Name Unknown Address Unknown Organization [facility] - [address] [place] [address] Laboratory Report Ordering Provider Test Date Status TJ SMITH 07/17/2023 08:58:30 Final Observation Date Value Abnormality Reference (Units ) Status WBC, Total 07/17/2023 08:58:30 4.68 4.00-10.8 0 (K/uL) Final RBC 07/17/2023 08:58:30 3.76 4.50-5.25 (M/uL) Final Hemoglobin 07/17/2023 08:58:30 12.2 Below low normal 14 .0-16.8 (g/dL) Final HCT 07/17/2023 08:58:30 38.7 Below low normal 40. 0-48.4 (%) Final MCV 07/17/2023 08:58:30 102.9 82.0-99.5 (fL) Final MCH 07/17/2023 08:58:30 32.4 27.0-34.0 (pg) Final MCHC 07/17/2023 08:58:30 31.5 32.0-36.0 (g/dL) Final RDW 07/17/2023 08:58:30 14.0 11.5-15.5 (%) Final Platelets 07/17/2023 08:58:30 155 140-400 (K /uL) Final MPV 07/17/2023 08:58:30 10.6 6.6-11.1 ( fL) Final Performing Location LAB[facility]ATORY [facility] 57-[address] 0 - [address] [place] [address]
--- OUTSIDE RECORDS SUMMARY | 2023-09-20 05:54 | External Medical Summary ---
Author Name Unknown Address Unknown Organization K09:[facility] [address] [place] [address] Laboratory Report Ordering Provider Test Date Status TJ SMITH 07/25/2023 11:45:05 Final Observation Date Value Abnormality Reference (Units ) Status BUN 07/25/2023 11:45:05 17 6-20 (mg/dL) Final Creatinine 07/25/2023 11:45:05 1.0 0.6-1.2 (mg/dL) Final Glomerular filtration rate/1.73 sq M.predicted [Volume Rate/Area] in Serum, Plasma or Blood by Creatinine-based formula (CKD-EPI) 07/25/2023 11:45:05 82 >=60 (mL/min) Final eGFR is calculated based on the CKD-EPI 2020 equation SODIUM 07/25/2023 11:45:05 137 135-146 (m mol/L) Final Potassium 07/25/2023 11:45:05 4.1 3.5-5.1 (m mol/L) Final Cl 07/25/2023 11:45:05 98 98-107 (mm ol/L) Final CO2 07/25/2023 11:45:05 25 22-32 (mmo l/L) Final Anion gap 07/25/2023 11:45:05 14 7-15 (mmol /L) Final Glucose 07/25/2023 11:45:05 155 Above high normal 70 -120 (mg/dL) Final Albumin 07/25/2023 11:45:05 3.7 Below low normal 3.8 -5.0 (g/dL) Final AST (Aspartate aminotransferase) 07/25/2023 11:45:05 35 10-50 (U/L) Fin al Alk Phos 07/25/2023 11:45:05 138 Above high normal 35 -130 (U/L) Final Bilirubin, Total 07/25/2023 11:45:05 0.5 <=1 .2 (mg/dL) Final Calcium 07/25/2023 11:45:05 9.8 8.4-10.2 ( mg/dL) Final Protein 07/25/2023 11:45:05 7.1 6.0-8.3 (g /dL) Final ALT (Alanine aminotransferase) 07/25/2023 11:45:05 43 10-50 (U/L) Darien harris Performing Location [facility] [address] - [address] [place] [address]
--- OUTSIDE RECORDS SUMMARY | 2023-09-20 05:55 | External Medical Summary | Summary of Care ---
Author Name Unknown Organization [facility] Address [address] [place] [address] Phone [phone] Care Team Providers Care Cleat Maker Name Role Phone Ray Royal MD Primary Care Provider [phone] Reason for Visit * Reason Onset Date Comments Test Results Lab 06/12/2023 Clinically nega tive genetic testing for hereditary cancer risk Encounter Details Date Type Department Care Team ([facility] st Contact Info) Description 06/12/2023 Telephone Genetics [facility] [address] [place] [address] Rachel Johnson, [place] Test Results Lab (Clinically negative gene... Allergies No known active allergiesdocumented as of this encounter (statuses as of 07/11/2023) Medications Medication Sig Dispensed Refills Start Date [...] as of this encounter (statuses as of 07/11/2023) Active Problems Problem Noted Date Diagnosed Date Food insecurity 06/05/2023 Overview: Per [facility] Protocol Urethral stricture 04/03/2023 Slow [...] as of this encounter (statuses as of 07/11/2023) Immunizations Name Administration Dates Next Due COVID-19 mRNA, LNP-s, No Pre serve, 2-Dose Series (Pfizer) 02/23/2021,02/02/2021 HEP A - Hepatitis A (Adult > 18 yrs) 09/21/2020, 02/10/2020 Hepatitis B, 20+ yrs 09/21/2020,03/23/2020,02/09 Pneumococcal Conjugate Vacci ne, 20-valent ([id number]) 10/26/2022(Deferred: Patient Refused) Pneumococcal Polysaccharide PPV23 (Pneumovax) [...] Miscellaneous Notes * Telephone Encounter - Dalia Diaz CHRA - 07/11/2023 4:06 PM EST I contacted Brad Alta today to disclose genetic test results by phone. Spoke to:patient. Patient verbalized understanding and did not have any further questions. Patient requested letter and genetic test report to be mailed to home address on file (verified with patient today). ANDRE John 07/11/2023 4:06 PM * Telephone Encounter - Dalia Diaz CHRA - 07/04/2023 1:18 PM EST I attempted to contact Brad Alta today to disclose genetic test results by phone. Left message onVOLITIONRX requesting callback. ANDRE John 07/04/2023 1:18 PM * Telephone Encounter - Dalia Diaz CHRA - 06/12/2023 11:32 AM EST I contacted Brad Alta today to disclose genetic test results by [employer]. [employer] message sent. Summary: No hereditary cancer syndrome identified. No significant findings were identified that have a known association to cancer risk. A VUS is not used to guide treatment decisions or change cancer screening recommendations. Continue to follow physician's screening, management, or treatment recommendations. Testing relatives for VUS findings is not recommended. ANDRE John 06/12/2023 11:32 AM * Telephone Encounter - Dalia Diaz CHRA - 06/12/2023 8:53 AM EST Images from the original note were not included. Brad Holm completed genetic testing for hereditary cancer risk. Genetic Testing completed 06/12/2023: Test Result: clinically negative. No significant (pathogenic) variants identified. Test Ordered: Multi-Cancer Panel and Expanded Colorectal Cancer Panel at [facility] (91 genes) Genes Included: AIP, ALK, APC, GILBERTO, AXIN2, BAP1, BARD1, BLM, BMPR1A, BRCA1, BRCA2, BRIP1, CASR, CDC73, CDH1, CDK4, CDKN1B, CDKN1C, CDKN2A (p14ARF), CDKN2A (i32XTU4k), CEBPA, CHEK2, CTNNA1, DICER1, DIS3L2, EGFR, EPCAM, FH, FLCN, GATA2, GPC3, GREM1, HOXB13, HRAS, KIT, MAX, MEN1, MET, MITF, MLH1, MSH2, MSH3, MSH6, MUTYH, NBN, NF1, NF2, NTHL1, PALB2, PDGFRA, PHOX2B, PMS2, POLD1, POLE, POT1, DHWIH7O, PTCH1, PTEN, RAD50, RAD51C, RAD51D, RB1, RECQL4, RET, RUNX1, SDHA, SDHAF2, SDHB, SDHC, SDHD, SMAD4, SMARCA4, SMARCB1, SMARCE1, STK11, SUFU, TERC, TERT, TIFU823, TP53, TSC1, TSC2, VHL, WRN, WT1 + BUB1B, CEP57, ENG, GALNT12, MLH3, RNF43, RPS20 [facility] Core Panel: Mendoza Syndrome A variant of uncertain significance (VUS) was identified: SDHAF2, c.98G>A (p.Vmk61Rvs); ClinVarID: [id number] ANDRE John 06/12/2023 8:53 AM documented in this encounter Plan of Treatment Upcoming Encounters Date Type Department Care Team (Late st Contact Info) Description 07/12/2023 10:00 AM EST Office Visit Palliative Medicine [facility] [address] [place], [place] [id number] Shante Prado MD [address] [place] [address] [place] [address] 07/17/2023 9:00 AM EST Laboratory Laboratory, [facility] [address] [facility] [place] [address] [facility] [address] [facility] [place] [address] 07/18/2023 9:15 AM EST Office Visit Hematology/Oncology [facility] [place] [address] [place] [address] Teto Torrez MD [address] [place] [address] 07/18/2023 9:45 AM EST Hem/Onc Treatment Hematology/Oncology Treatment, [place] [address] [place] [address] Neisha, Chair 10 Hem Onc Scene [address] [place] [address] 08/09/2023 10:30 AM EST Office Visit Orthopaedics [facility] [address] [facility] [place] [address] Judy Clay MD [address] [facility] [place] [address] 08/25/2023 9:45 AM EST Telemedicine Urology Luli Sanchez [address] [place] [address] [place] [address] Adolfo Key MD [address] [place] [address] 7, Telemed [facility] Urology Ex [address] [facility] [place] [address] 11/15/2023 11:30 AM EDT Office Visit Urology, [facility] [address] [facility] [place] [address] Adolfo Key MD [address] [place] [address] [place] [address] Scheduled Procedures Name Priority Associated Diagnoses Date/Ti me COLONOSCOPY FLEXIBLE PROXIMAL DIAGNOSTIC Recall History of colon polyps Health Maintenance Due Date Last Done Comments HIV Screening 1975 Depression Screening 09/29/2020 09/30/2019 COVID-19 Vaccine (3 - Pfizer risk series) 03/23/2021 02/23/2021, 02/02/2021 Pneumococcal Vaccine: Pediatrics (0 to 5 Years) and At-Risk Patients (6 to 64 Years) (2 - PCV) 05/10/2022 05/10/2021 GFR 07/04/2024 07/04/2023, 05/27, 06/05/2023, Additional history exists Albumin/Creatinine Ratio 09/14/2025 [...] this encounter Medical Devices Implanted Type Area Lift Truck Operator Device Identifier Shelf Expiration Date Model / Serial / Lot Port Implant W/8f Poly Cath - [id number] Implanted:Qty : 1 on 12/01/2022 by Brad Cerda DO at OR [facility] Right: Chest CR BARD : PERIPHERAL VASCULAR [id number] 02/24/2024 [id number] / / [id number] System Urolift - [id number] Implanted:Qty : 6 on 05/31/2023 by Adolfo Key MD at OR [facility] [employer] 09/01/2023 [id number] / / [id number] Description:prostate documented as of this encounter Advance Directives Latest Code Status on File Code Status [...] Discussed due to patient's condition Care Teams Cleat Maker Relationship Specialty Start Date End Date Ray Royal MD [address] [place] [address] [place] [id number] PCP - General Family Medicine 10/22/18 documented as of this encounter
--- OUTSIDE RECORDS SUMMARY | 2023-09-20 05:55 | External Medical Summary | Summary of Care ---
Author Name Unknown Organization [facility] Address [address] [place] [address] Phone [phone] Care Team Providers Care Concrete Engineer Name Role Phone Ray Royal MD Primary Care Provider [phone] Encounter Details Date Type Department Care Team (Late st Contact Info) Description 07/11/2023 Documentation Home Infusion, [place] [address] [place] [address] Services, [facility] Infusion [address] [place] [address] Allergies No known active allergiesdocumented as of [...] and urgency. 18 Tablet 0 05/31/2023 Active oxyCODONE HCl 5 MG Oral Tablet (Oxy IR)Indications:Adenoc arcinoma of pancreas (HCC),Metastasis to liver (HCC) Take 1 Tablet by mouth every 8 hours as needed for Pain, Moderate. 60 Tablet 0 06/24/2023 Active Silodosin 8 MG Oral Capsule (Rapaflo)Indications: BPH with obstruction/lower urinary tract symptoms Take 1 Capsule by mouth in the morning. 30 Capsule 6 06/27/2023 Active Baclofen 10 MG Oral Tablet (Lioresal)Indications :Cancer related pain Take 1 Tablet by mouth 2 times a day as needed for Muscle spasms. 30 Tablet 0 06/28/2023 Active oxyCODONE-Acetaminoph en 10-325 MG Oral Tablet (Percocet)Indications :Cancer related pain Take 1 Tablet by mouth every 6 hours as needed for Pain, Moderate or Pain, Severe. 1 tablet every 4 hours or 2 tablets every 6 hours. 30 Tablet 0 06/28/2023 Active documented as of this encounter (statuses as of 07/11/2023) Active Problems Problem Noted Date Diagnosed Date Food insecurity 06/05/2023 Overview: Per [facility] Protocol Urethral stricture 04/03/2023 Slow [...] yrs 09/21/2020,03/23/2020,02/09 Pneumococcal Conjugate Vacci ne, 20-valent ([id number]) 10/26/2022(Deferred: Patient Refused) Pneumococcal Polysaccharide PPV23 (Pneumovax) [...] as of this encounter Progress Notes * Noss, Hanny S, RN - 07/11/2023 3:23 PM EST The following documentation summarizes the services provided by [facility] asthe prescribed therapy has been completed. The client was referred to us for home therapy. The ordered therapy was Fluorouracil The home therapy began on:12/06/22 Per physician order: -the prescribed therapy was completed on: 07/07/23 -the (VAD) will remain in place and will be maintained by the clinical staff at ([facility]): The client and/or caregiver were compliant with therapy administration. The therapy goals were met. The following instructions were provided during our final conversation with the client and/or caregiver: did not speak to client at end of service Collaboration of Care: -[facility] clinical staff were notified of therapy completion -A discharge summary note was sent to: Teto Torrez MD via SpecifiedBy/fax documented in this encounter Plan of Treatment Upcoming Encounters Date Type Department Care Team (Late st Contact Info) Description 07/12/2023 10:00 AM EST Office Visit Palliative Medicine [facility] [address] [place] [address] Shante Prado MD [address] [place] [address] 07/17/2023 9:00 AM EST Laboratory Laboratory, [facility] [address] [place] [id number] [facility] [address] [place] [address] 07/18/2023 9:15 AM EST Office Visit Hematology/Oncology [facility] [address] [place] [address] Teto Torrez MD [address] [place], [place] [address] [address] 07/18/2023 9:45 AM EST Hem/Onc Treatment Hematology/Oncology Treatment, [place] [address] [place] [address] Neisha, Chair 10 Hem Onc Scenery [address] [place] [address] 08/09/2023 10:30 AM EST Office Visit Orthopaedics [facility] [address] [place] [address] Judy Clay MD [address] [place] [address] 08/25/2023 9:45 AM EST Telemedicine Urology Luli Sanchez [address] [place] [address] [place] [address] Adolfo Key MD [address] [place] [address] [place] [address] 7, Telemed [facility] Urology Ex Rm [address] [place] [address] 11/15/2023 11:30 AM EDT Office Visit Urology, [facility] [address] [place] [address] Adolfo Key MD [address] [place] [address] [place] [address] Scheduled Procedures Name Priority Associated Diagnoses Date/Ti [...] this encounter Medical Devices Implanted Type Area Property Assessment Monitor Device Identifier Shelf Expiration Date Model / Serial / Lot Port Implant W/8f Poly Cath - [id number] Implanted:Qty : 1 on 12/01/2022 by Brad Cerda DO at OR [facility] Right: Chest CR BARD : PERIPHERAL VASCULAR [id number] 02/24/2024 [id number] / / [id number] System Urolift - [id number] Implanted:Qty : 6 on 05/31/2023 by Adolfo Key MD at OR [facility] [employer] 09/01/2023 [id number] / / [id number] Description:prostate documented as of this encounter Advance [...] Discussed due to patient's condition Care Teams Concrete Engineer Relationship Specialty Start Date End Date Ray Royal MD [address] [place] [address] [place] [address] PCP - General Family Medicine 10/22/18 documented as of this encounter
--- OUTSIDE RECORDS SUMMARY | 2023-09-20 05:55 | External Medical Summary | Summary of Care ---
Author Name Unknown Organization [facility] Address [address] [place] [address] Phone [phone] Care Team Providers Care Automotive Salesperson Name Role Phone Ray Royal MD Primary Care Provider [phone] Reason for Visit * Reason Onset Date Comments Precert Future 07/11/2023 gemzar Encounter Details Date Type Department Care Team (Late st Contact Info) Description 07/11/2023 Telephone Hematology/Oncology Treatment, [place] [address] [place] [address] Teto Torrez MD [address] [place] [address] Precert Future (gemzar) Allergies No known active allergiesdocumented as of this encounter (statuses as of 07/13/2023) Medications Medication Sig Dispensed Refills Start Date [...] as of this encounter (statuses as of 07/13/2023) Active Problems Problem Noted Date Diagnosed Date [...] as of this encounter (statuses as of 07/13/2023) Immunizations Name Administration Dates Next Due COVID-19 mRNA, LNP-s, No Pre serve, 2-Dose Series (e[employer]icon) 02/23/2021,02/02/2021 HEP A - Hepatitis A (Adult > 18 yrs) 09/21/2020, 02/10/2020 Hepatitis B, 20+ yrs 09/21/2020,03/23/2020,02/09 Pneumococcal Conjugate Vacci ne, 20-valent ([id number]) 10/26/2022(Deferred: Patient Refused) Pneumococcal Polysaccharide PPV23 (Pneumovax) [...] Telephone Encounter - Starla Casanova RN - 07/13/2023 9:40 AM EST Referral entered. * Telephone Encounter - Beena Hu CMA - 07/11/2023 2:57 PM EST Treatment note and treatment length changed to 2 hours and Gemzar C1D1 * Telephone Encounter - Starla Casanova RN - 07/11/2023 2:[address] Torrez: "Disease progression noted in the recent PET-CT mainly in the liver. So far he received 12 cycles of chemotherapy modified FOLFIRINOX. Has not experienced neuropathy symptoms and so would like to avoid Abraxane treatment at this time. I would like to change the treatment to single agent gemcitabine at 1000 mg/m weekly x2 followed by 1 week off. He is due for next cycle of chemotherapy next week so we can start gemcitabine on 07/18/2023." Order received for gemzar. Rillito plan built and routed for signature. Waiting for auth. Per Dr Torrez, patient aware treatment is changing (discussed on the phone when he called him about PET). *Patient sees Dr Torrez 07/18/23 to discuss further and sign consent* Hep B labs 11/17/22. Patient has treatment appt 07/18 already. Scheduling: please change treatment appt 07/18 to 2 hour appt "C1D1 gemzar". Thanks! documented in this encounter Plan of Treatment Upcoming Encounters Date Type Department Care Team (Late st Contact Info) Description 07/17/2023 9:00 AM EST Laboratory Laboratory, [facility] [phone] CardozaPatricio khan [facility] [place] [address] 07/18/2023 9:15 AM EST Office Visit Hematology/Oncology [facility] [address] [place] [address] Teto Torrez MD 200 [facility] [place] [address] 07/18/2023 9:45 AM EST Hem/Onc Treatment Hematology/Oncology Treatment, [place] [address] [place] [address] Neisha, Chair 10 Hem Onc [address] [place] [address] 07/26/2023 3:30 PM EST Office Visit Palliative Medicine [facility] [address] [place] [address] Shante Prado MD [address] [place] [address] [place] [address] 08/09/2023 10:30 AM EST Office Visit Orthopaedics [facility] [address] [facility] [place] [address] Judy Clay MD [address] [facility] [place] [address] 08/25/2023 9:45 AM EST Telemedicine Urology Luli Sanchez [address] [place] [address] [place] [address] Adolfo Key MD [address] [place] [address] [place] [address] 7, Telemed [facility] Urology Ex Rm [address] [place] [address] 11/15/2023 11:30 AM EDT Office Visit Urology, [facility] [address] [place] [address] Adolfo Key MD [address] [facility] [place] [address] [place] [address] Scheduled [...] this encounter Medical Devices Implanted Type Area Car Ferry Captain Device Identifier Shelf Expiration Date Model / Serial / Lot Port Implant W/8f Poly Cath - [id number] Implanted:Qty : 1 on 12/01/2022 by Brad Cerda DO at OR [facility] Right: Chest CR BARD : PERIPHERAL VASCULAR [id number] 02/24/2024 [id number] / / [id number] System Urolift - [id number] Implanted:Qty : 6 on 05/31/2023 by Adolfo Key MD at OR [facility] [employer] 09/01/2023 [id number] / / [id number] Description:prostate documented as of this encounter Advance [...] Discussed due to patient's condition Care Teams Automotive Salesperson Relationship Specialty Start Date End Date Ray Royal MD [address] [place] [address] [place] [address] PCP - General Family Medicine 10/22/18 documented as of this encounter
--- OUTSIDE RECORDS SUMMARY | 2023-09-20 05:55 | External Medical Summary | Summary of Care ---
Author Name Unknown Organization [facility] Address [address] [place] [address] Phone [phone] Care Team Providers Care Inspector Watch Assembly Name Role Phone Ray Royal MD Primary Care Provider [phone] Reason for Visit * Reason Comments Follow Up Encounter Details Date Type Department Care Team (Late st Contact Info) Description 07/12/2023 10:00 AM EST Office Visit Palliative Medicine [facility] [address] [place] [address] Shante Prado MD [address] [place] [address] [phone] Cancer related pain*; Constipation due to pain medication; Adenocarcinoma of pancreas (HCC); Metastasis to liver (HCC) Allergies No known active allergiesdocumented as of this encounter (statuses as of 07/12/2023) Medications Medication Sig Dispensed Refills Start Date [...] Tablet before bedtime. 30 Tablet 0 4 Active oxyCODONE HCl 10 MG Oral Tablet (Roxicodone)Indicat ions:Cancer related pain Take 1 Tablet by mouth every 4 hours as needed for Pain, Severe. 60 Tablet 0 4 Active oxyCODONE HCl 5 [...] as of this encounter (statuses as of 07/12/2023) Active Problems Problem Noted Date Diagnosed Date [...] as of this encounter (statuses as of 07/12/2023) Immunizations Name Administration Dates Next Due COVID-19 mRNA, LNP-s, No Pre serve, 2-Dose Series (NineSixFive) 02/23/2021,02/02/2021 HEP A - Hepatitis A (Adult > 18 yrs) 09/21/2020, 02/10/2020 Hepatitis B, 20+ yrs 09/21/2020,03/23/2020,02/09 Pneumococcal Conjugate Vacci ne, 20-valent ([id number]) 10/26/2022(Deferred: Patient Refused) Pneumococcal Polysaccharide PPV23 (Pneumovax) [...] Sign Reading Time Taken Comments Blood Pressure 146/93 07/12/2023 10:00 AM EST Pulse 116 07/12/2023 10:00 AM EST Temperature 36 C (96.8 F) 07/12/2023 10:00 AM EST Respiratory Rate 16 07/12/2023 10:00 AM EST Oxygen Saturation 97% 07/12/2023 10:00 AM EST Inhaled Oxygen Concentration - - Weight 116.6 kg (257 lb) 07/12/2023 10:00 AM EST Height - - Body Mass Index 32.12 05/31/2023 10:31 AM EST documented in this encounter Patient Instructions * Patient Instructions* Mariana Michele LPN - 07/12/2023 9:52 AM EST Our Palliative Medicine Clinic is [...] needed. You can contact our office at [phone], which is our clinic in [place], or you can message us on [place] [employer]. If you have an emergency outside of these hours, we recommend calling your primary care clinic, Oncology office, or going to the ER if you have a medical emergency. documented in this encounter Progress Notes * Shante Prado MD - 07/12/2023 10:00 AM EST Images from the original note were not included. Palliative Medicine Outpatient Consult Note [facility] Palliative Medicine Outreach [address] [place] [address] Name: Brad Holm Date: 07/12/2023 Referring Provider: Teto Torrez MD Reason for Consult: Goals of care; Pain and symptom management HPI: Brad Holm is a 63 year old male with a primary diagnosis of pancreatic tail adenocarcinoma, with mets to liver. Currently on chemotherapy, follows with Dr Torrez. Recent PET scan on 07/07 showedworsening liver mets. Referred to palliative for goals of care and symptom management. Pain been worsening for the last month. Nothing helps make it better. Was taking oxycodone 10mg butis out of them. Was taking it PRN, usually before bed or in AM. [place] it didn't last long enough. Was taking about 4x/day, total 40mg Oxycodone. Palliative symptoms: Nausea/Vomiting: no Constipation: no Confusion: no Somnolence: sleeps a lot during the day, gets bored, so not sleeping at night Dyspnea: no Mood: no Other: None ROS: See HPI. All other systems negative. 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 Primary osteoarthritis of both knees M17.0 Portal hypertension with esophageal varices (HCC) K76.6, I85.00 Trigger middle finger of right hand M65.331 Hemochromatosis E83.119 Adenocarcinoma of pancreas (HCC) C25.9 Metastasis to liver (HCC) C78.7 Encounter for antineoplastic chemotherapy Z51.11 Venous stasis dermatitis of both lower extremities I87.2 Urethral stricture N35.919 Slow urinary stream R39.198 Food insecurity Z59.41 Past Surgical History: Procedure Laterality Date COLONOSCOPY, DIAGNOSTIC (RECTUM) 01/21/2019 serrated adenomatous polyp, fair prep, repeat 1 yr/COLONOSCOPY FLEXIBLE PROXIMAL DIAGNOSTIC performed by Sailaja Gutiérrez MD at [facility] COLONOSCOPY, DIAGNOSTIC (RECTUM) 04/17/2020 diverticulosis, repeat 2 yrs / COLONOSCOPY FLEXIBLE PROXIMAL DIAGNOSTIC performed by Conrado Morales MD at [facility] COLONOSCOPY, DIAGNOSTIC (RECTUM) 01/03/2023 normal, repeat 5 years, performed by Sailaja Gutiérrez MD at [facility] CYSTOURETHROSCOPY, W/ TRANSPROSTATIC IMPLANT N/A 05/31/2023 CYSTOURETHROSCOPY, WITH INSERTION OF PERMANENT ADJUSTABLE TRANSPROSTATI IMPLANT; SINGLE IMPLANT performed by Adolfo Key MD at OR [facility] ECHO, COMPLETE (2D), TRANS-THORACIC N/A 01/21/2020 normal LV size and function, EF 60-64%, LAE suggests LV diastolic dysfunction EGD, FLEXIBLE, DIAGNOSTIC 11/19/2019 acid reflux / ESOPHAGOGASTRODUODENOSCOPY (EGD), FLEXIBLE, TRANSORAL, DIAGNOSTIC performed by MD Diego at END[facility]COPY [facility] EGD, W/ENDOSCOPIC US 11/19/2019 moderate steatohepatitis, GB polyp, enlarged lymph node / ESOPHAGOGASTRODUODENOSCOPY (EGD), FLEXIBLE, TRANSORAL, ENDOSCOPIC ULTRASOUND performed by Conrado Morales MD at [facility] EGD, W/ENDOSCOPIC US 10/03/2022 pancreas adenocarcinoma, fatty liver, GB polyps / ESOPHAGOGASTRODUODENOSCOPY (EGD), FLEXIBLE, TRANSORAL, ENDOSCOPIC ULTRASOUND performed by Conrado Morales MD at [facility]COPY [facility] INSER TUNN ACC DEV;5 YRS/OLDER Right 12/01/2022 INSERT TUNNELED CENTRAL VENOUS ACCESS WITH SUBQ PORT performed by Brad Cerda DO at OR [facility] PARTIAL REMOVAL OF PANCREAS N/A 10/26/2022 LAPAROSCOPIC PANCREATECTOMY DISTAL SUBTOTAL performed by Jordan Howard MD at [facility] US ABDOMEN DOPPLER LIMITED 06/21/2019 mild hepatomegaly and steatosis, GB polyp and /or sludge, GB wall not thickened US ENDOSCOPIC 10/03/2022 38 mm pancreatic mass, GB polyp Family History Problem Relation Age of Onset Cirrhosis Mother Heart attack Father 40s Emphysema Grandfather (Paternal) Other (coronary thrombosis) Grandfather (Paternal) Coronary Artery disease Grandfather (Maternal) Diabetes Grandmother (Maternal) Coronary Artery disease Grandmother (Paternal) Heart disease Uncle (Paternal) CVD Liver cancer Uncle (Maternal) 80 Liver cancer Uncle (Maternal) Liver cancer Aunt (Maternal) Family Status Relation Status Mo at age 63 Fatty liver Fa at age 43 Coronary thrombosis Enlarged heart Sis Alive, age 58y Fatty liver Bro Alive, age 55y PGFA at age 62 Son Alive, age 40y Son Alive, age 34y Son Alive, age 25y MGFA at age 80s MGMA at age 80s HTN PGMA at age 56 TOB+ Niece Alive Nephew Alive Grandson Alive, age 9y Grandson Alive, age 5y Granddaughte Alive, age 5y PUNC at age 51 TOB+ MAUNT Alive, age 80 - 90y Fatty liver MAUNT Alive, age 71y Fatty liver MUNC at age 83 MUNC at age 68 Liver issues MAUNT at age 60s PAUNT at age 0 at Social History Socioeconomic History Marital status: Tobacco Use Smoking status: Former Types: Cigarettes Quit date: 10/2022 Years since quittin.7 Smokeless tobacco: Former Vaping Use Vaping Use: Never used Substance and Sexual Activity Alcohol use: Not Currently Comment: none since October 2022 Drug use: No Social Determinants of Health Food Insecurity: Food Insecurity Present (06/02/2023) Hunger Vital Sign Worried About Running Out of Food in the Last Year: Sometimes true Ran Out of Food in the Last Year: Sometimes true Family Support: Girlfriend Veronika, brother Gustavo, sister Jazmyn. 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 18 Tablet 0 oxyCODONE HCl 5 MG Oral Tablet (Oxy IR) Take 1 Tablet by mouth every 8 hours as needed for Pain, Moderate. 60 Tablet 0 Silodosin 8 MG Oral Capsule (Rapaflo) Take 1 Capsule by mouth in the morning. 30 Capsule 6 Baclofen 10 MG Oral Tablet (Lioresal) Take 1 Tablet by mouth 2 times a day as needed for Muscle spasms. 30 Tablet 0 oxyCODONE-Acetaminophen 10-325 MG Oral Tablet (Percocet) Take 1 Tablet by mouth every 6 hours as needed for Pain, Moderate or Pain, Severe. 1 tablet every 4 hours or 2 tablets every 6 hours. 30 Tablet 0 No current facility-administered medications for this visit. Allergies: Patient has no known allergies. PHYSICAL EXAMINATION: Constitutional: BP 146/93 | Pulse 116 | Temp 36 C (96.8 F) | Resp 16 | Wt 116.6 kg (257 lb) | SpO2 97% | BMI 32.12 kg/m | BSA 2.48 m , no acute distress, chronically ill, pleasant and cooperative, breathing ambient air comfortably HENT: normocephalic, atraumatic. Eyes: anicteric, sclera and conjunctiva normal. Neck: no stridor Chest: normal respiratory effort Abdominal: nondistended Extremities: no edema, no clubbing, no cyanosis Neuro: alert, oriented to person, place, and time Psych: normal mood and affect Data Review: External notes reviewed: Onc notes reviewed Lab / Imaging Results: PET scan reviewed - showed similar size of pancreatic mass, increased size of hepatic mets. History obtained from: patient Discussion with other team members: no Decision-making Capacity: Does Patient have Decisional Capacity? y Does Patient have a Healthcare Agent? Y, brother Gustavo or girlfriend Discussion with Patient & Family: Met with patient Introduced role of Outpatient Palliative Medicine team and reviewed symptoms as above. Reviewed patient's/family's understanding of current medical situation. He was not fully aware of his PET scan results - I showed him what it said and explained how further notes say the plan is to change to a new chemo regimen starting next round Discussed ACP as below Advanced Care Planning: AD: Reports his decision maker would be his brother or girlfriend Asked permission to discuss ACP Reviewed 3 pathways of care - full vs limited vs comfort. He is ok with limited tx for now, but if declines wants to be comfortable. Reviewed CPR and poor success rates in setting of serious illness. He is clear he is a DNR He is ok with LIMITED tx He is ok with abx for comfort Does not want artificial nutrition, ok with IV hydration POLST completed, original given to patient, copy taken to be put into EMR under ACP docs but also scanned into Chart Review --> Scans ASSESSMENT/PLAN: Brad Holm is a/an 63 year old male referred for consultation to Palliative Medicine with the primary diagnosis of: Stage IV Pancreatic cancer Metastases to liver Cancer related pain Opioid induced constipation Insomnia due to medical issue Goals of care - continue chemo, if declines, wants to be comfortable DNR if admitted Recommendations: For pain, I added MS Contin 30mg BID, with Oxy 10mg q4h PRN breathrough pain. He is already opioid tolerant and his pain is not well controlled so I am ok starting at the 30mg dose Controlled substance agreement reviewed and completed, signed by myself and patient. Copy given to patient and kept in office records. - Given controlled prescription he was assessed for risk of misuse, abuse and addiction and deemed safe for this medication. He was educated on adverse effects of opioids. He was informed we will complete random urine drug screens. He agrees. PDMP reviewed, no risk of misuse or diversion. 2. For bowels, continue Miralax 3. He says he is doing OK at home and does not need any extra help or equipment 4. Will plan to f/u in 2 weeks, sooner if needed Thank you for this consult. We appreciate the opportunity to take part in the care of your patient. Note routed back to referring provider and PCP. Shante Prado MD Palliative Medicine Physician [facility] Office: [phone] 07/12/2023 * Mariana Michele LPN - 07/12/2023 9:57 AM EST Return Palliative Visit Pain: 10/10 when taking a deep breath On right side of abdomen Taking percocet as needed-typically taking at bedtime--will take sometimes during the day Taking baclofen as needed for muscle spasms Not sleeping well-gets up d/t the pain and to urinate, etc Last BM: today. No issues Other issues: documented in this encounter Plan of Treatment Upcoming Encounters Date Type Department Care Team (Late st Contact Info) Description 07/17/2023 9:00 AM EST Laboratory Laboratory, [facility] [address] [facility] [place] [id number] [facility] 132 [facility] [place] [address] 07/18/2023 9:15 AM EST Office Visit Hematology/Oncology [address] [place] [address] Teto Torrez MD 200 [place] [address] 07/18/2023 9:45 AM EST Hem/Onc Treatment Hematology/Oncology Treatment, [place] [address] [place] [address] Neisha, Chair 10 Hem Onc [address] [place] [address] 07/26/2023 3:30 PM EST Office Visit Palliative Medicine [facility] [address] [place] [address] Shante Prado MD [address] [place] [address] [place] [address] 08/09/2023 10:30 AM EST Office Visit Orthopaedics [facility] [address] [place] [address] Judy Clay MD [address] [place] [address] 08/25/2023 9:45 AM EST Telemedicine Urology Luli [place] [address] [facility] [address] [place] [address] Adolfo Key MD [address] [place] [address] [place] [address] 7, Telemed [facility] Urology Ex [address] [place] [address] 11/15/2023 11:30 AM EDT Office Visit Urology, [facility] [address] [facility] [place] [address] Adolfo Key MD [address] [place] [address] [place] [address] Scheduled Procedures Name Priority Associated Diagnoses Date/Ti [...] this encounter Medical Devices Implanted Type Area Television Director Device Identifier Shelf Expiration Date Model / Serial / Lot Port Implant W/8f Poly Cath - [id number] Implanted:Qty : 1 on 12/01/2022 by Brad Cerda DO at OR [facility] Right: Chest CR BARD : PERIPHERAL VASCULAR [id number] 02/24/2024 [id number] / / [id number] System Urolift - [id number] Implanted:Qty : 6 on 05/31/2023 by Adolfo Key MD at OR [facility] [employer] 09/01/2023 [id number] / / [id number] Description:prostate documented as of this encounter Visit Diagnoses Diagnosis Cancer related pain- Primary Neoplasm related pain (acute) (chronic) Constipation due to pain medication Other constipation Adenocarcinoma of pancreas (HCC) Malignant neoplasm of pancreas, part unspecified Metastasis to liver (HCC) Secondary malignant neoplasm of liver documented in this encounter Advance Directives Latest Code Status [...] Discussed due to patient's condition Care Teams Inspector Watch Assembly Relationship Specialty Start Date End Date Ray Royal MD [address] [place] [address] [place] [address] PCP - General Family Medicine 10/22/18 documented as of this encounter"
--- OUTSIDE RECORDS SUMMARY | 2023-09-20 05:55 | External Medical Summary | Summary of Care ---
Author Name Unknown Organization [facility] Address [address] [place] [address] Phone [phone] Care Team Providers Care Site Operations Manager Name Role Phone Ray Royal MD Primary Care Provider [phone] Reason for Visit * Reason Onset Date Comments Precert Future 07/11/2023 gemzar Encounter Details Date Type Department Care Team (Late st Contact Info) Description 07/11/2023 Telephone Hematology/Oncology Treatment, [place] [address] [place] [address] Teto Torrez MD [address] [place] [address] Precert Future (gemzar) Allergies No known active [...] Diagnosed Date Food insecurity 06/05/2023 Overview: [facility] Protocol Urethral stricture 04/03/2023 Slow urinary [...] yrs 09/21/2020,03/23/2020,02/09 Pneumococcal Conjugate Vacci ne, 20-valent ([id number]) 10/26/2022(Deferred: Patient Refused) Pneumococcal Polysaccharide PPV23 (Pneumovax) [...] encounter Miscellaneous Notes * Telephone Encounter - Beena Hu CMA [...] gemcitabine on 07/18/2023." Order received for gemzar. [place] plan built and routed for signature. Waiting [...] 10:00 AM EST Office Visit Palliative Medicine [facility] [address] [facility] [place] [address] Shante Prado MD [address] [place] [address] [place] [address] 07/17/2023 9:00 AM EST Laboratory Laboratory, [facility] [address] [place] [phone] [facility] [address] [place] [address] 07/18/2023 9:15 AM EST Office Visit Hematology/Oncology [facility] [address] [place] [address] Teto Torrez MD [address] [place] [address] 07/18/2023 9:45 AM EST Hem/Onc Treatment Hematology/Oncology Treatment, [place] [address] [place] [address] Neisha, Chair 10 Hem Onc [place] 200 [facility] [place] [address] 08/09/2023 10:30 AM EST Office Visit Orthopaedics [facility] [address] [place] [address] Judy Clay MD [address] [place] [address] 08/25/2023 9:45 AM EST Telemedicine Urology Luli Sanchez [address] [place] [address] [place] [address] Adolfo Key MD [address] [place] [address] [place] [address] 7, Telemed [facility] Urology Ex Rm [address] [place] [address] 11/15/2023 11:30 AM EDT Office Visit Urology, [facility] [address] [place] [address] Adolfo Key MD [address] [place] [address] [place] [address] Scheduled Procedures Name Priority Associated Diagnoses Date/Ti [...] this encounter Medical Devices Implanted Type Area Cyber Security Device Identifier Shelf Expiration Date Model / Serial / Lot Port Implant W/8f Poly Cath - [id number] Implanted:Qty : 1 on 12/01/2022 by Brad Cerda DO at OR [facility] Right: Chest CR BARD : PERIPHERAL VASCULAR [id number] 02/24/2024 [id number] / / [id number] System Urolift - [id number] Implanted:Qty : 6 on 05/31/2023 by Adolfo Key MD at OR [facility] [employer] 09/01/2023 [id number] / / [id number] Description:prostate documented as of this encounter Advance [...] Discussed due to patient's condition Care Teams Site Operations Manager Relationship Specialty Start Date End Date Ray Royal MD [address] [place] [address] [place] [address] PCP - General Family Medicine 10/22/18 documented as of this encounter
--- OUTSIDE RECORDS SUMMARY | 2023-09-20 05:55 | External Medical Summary | Summary of Care ---
Author Name Unknown Organization [facility] Address [address] [place] [address] Phone [phone] Care Team Providers Care Automat Car Attendant Name Role Phone Ray Royal MD Primary Care Provider + [phone] Reason for Visit * Reason Onset Date Comments Precert Future 07/11/2023 gemzar Encounter Details Date Type Department Care Team (Late st Contact Info) Description 07/11/2023 Telephone Hematology/Oncology Treatment, [place] [address] [place] [address] Teto Torrez MD 200 [place] [address] Precert Future (gemzar) Allergies No known active [...] Diagnosed Date Food insecurity 06/05/2023 Overview: Per [facility] Protocol Urethral stricture 04/03/2023 Slow urinary [...] yrs 09/21/2020,03/23/2020,02/09 Pneumococcal Conjugate Vacci ne, 20-valent ([id number]) 10/26/2022(Deferred: Patient Refused) Pneumococcal Polysaccharide PPV23 (Pneumovax) [...] gemcitabine on 07/18/2023." Order received for gemzar. [place] plan built and routed for signature. Waiting [...] 10:00 AM EST Office Visit Palliative Medicine [facility] [address] [facility] [place] [address] Shante Prado MD [address] [place] [address] [place] [address] 07/17/2023 9:00 AM EST Laboratory Laboratory, [facility] [address] [place] [phone] [facility] [address] [place] [address] 07/18/2023 9:15 AM EST Office Visit Hematology/Oncology [facility] [address] [place] [address] Teto Torrez MD [address] [place] [address] 07/18/2023 9:45 AM EST Hem/Onc Treatment Hematology/Oncology Treatment, [place] [address] [place] [address] Neisha, Chair 10 Hem Onc Scenery 200 [facility] [place] [address] 08/09/2023 10:30 AM EST Office Visit Orthopaedics [facility] [address] [place] [address] Judy Clay MD [address] [place] [address] 08/25/2023 9:45 AM EST Telemedicine Urology Luli Sanchez [address] [place] [address] [place] [address] Adolfo Key MD [address] [place] [address] [place] [address] 7, Telemed [facility] Urology Ex Rm [address] [place] [address] 11/15/2023 11:30 AM EDT Office Visit Urology, [facility] [address] [place] [address] Adolfo Key MD [address] [place] [address] [place] [address] Scheduled Procedures Name Priority Associated Diagnoses Date/Ti [...] this encounter Medical Devices Implanted Type Area Gm Mobile Device Identifier Shelf Expiration Date Model / Serial / Lot Port Implant W/8f Poly Cath - [id number] Implanted:Qty : 1 on 12/01/2022 [facility]: Chest CR BARD : PERIPHERAL VASCULAR [id number] 02/24/2024 [id number] / / [id number] System Urolift - [id number] Implanted:Qty : 6 on 05/31/2023 by Adlofo Key [facility] [employer] 09/01/2023 [id number] / / [id number] Description:prostate documented as of this encounter Advance [...] Discussed due to patient's condition Care Teams Automat Car Attendant Relationship Specialty Start Date End Date Ray Royal MD [address] [place] [address] [place] [address] PCP - General Family Medicine 10/22/18 documented as of this encounter
--- OUTSIDE RECORDS SUMMARY | 2023-09-20 05:56 | External Medical Summary | Summary of Care ---
Author Name Unknown Organization [facility] Address [address] [place] [address] Phone [phone] Care Team Providers Care Mushroom Farmer Name Role Phone Ray Royal MD Primary Care Provider [phone] Encounter Details Date Type Department Care Team (Late st Contact Info) Description 07/11/2023 Orders Only Hematology/Oncology Tisha Driver [place] 200 [facility] [place] [address] Teto Torrez MD 200 [facility] [place] [address] Adenocarcinoma of pancreas (HCC)*; Metastasis to liver [...] Diagnosed Date Food insecurity 06/05/2023 Overview: Per [facility] Protocol Urethral stricture 04/03/2023 Slow [...] yrs 09/21/2020,03/23/2020,02/09 Pneumococcal Conjugate Vacci ne, 20-valent ([id number]) 10/26/2022(Deferred: Patient Refused) Pneumococcal Polysaccharide PPV23 (Pneumovax) [...] Progress Notes * Teto Torrez MD - 07/11/2023 12:18 PM EST Disease progression noted in the recent PET-CT mainly [...] week so we can start gemcitabine on 07/18/2023. documented in this encounter Miscellaneous Notes * Addendum Note - Dimitris Casanova RN - 07/11/2023 2:51 PM ESTAddended by: DIMITRIS CASANOVA on: 07/11/2023 02:51 PM Modules accepted: Orders documented in this encounter Plan of Treatment Upcoming Encounters Date Type Department Care Team (Late st Contact Info) Description 07/12/2023 10:00 AM EST Office Visit Palliative Medicine [facility] 200 [facility] [address] Shante Prado MD [address] [place], [place] [address] [address] 07/17/2023 9:00 AM EST Laboratory Laboratory, [facility] 132 [facility] [phone] Patricio Cardoza 132 [facility] [address] 07/18/2023 9:15 AM EST Office Visit Hematology/Oncology [address] [address] Teto Torrez MD [address] [place], [place] [address] [address] 07/18/2023 9:45 AM EST Hem/Onc Treatment Hematology/Oncology Treatment, [place] [address] [facility] [address] [place], [place] [address] Park, Chair 10 Hem Onc Scene 200 [facility] [place] [address] 08/09/2023 10:30 AM EST Office Visit Orthopaedics [facility] 132 [facility] [place] [address] Judy Clay MD 132 [facility] [place] [address] 08/25/2023 9:45 AM EST Telemedicine Urology Luli Sanchez [address] [place] [address] Adolfo Key MD [address] [place] [address] 7, Telemed [facility] Urology Ex Rm [address] [place] [address] 11/15/2023 11:30 AM EDT Office Visit Urology, [facility] [address] [place] [address] Adolfo Key MD [address] [place] [address] Scheduled Procedures Name Priority Associated Diagnoses Date/Ti [...] this encounter Medical Devices Implanted Type Area Drapery Hemmer Automatic Device Identifier Shelf Expiration Date Model / Serial / Lot Port Implant W/8f Poly Cath - [id number] Implanted:Qty : 1 on 12/01/2022 by Brad Cerda DO at OR [facility] Right: Chest CR BARD : PERIPHERAL VASCULAR [id number] 02/24/2024 [id number] / / [id number] System Urolift - [id number] Implanted:Qty : 6 on 05/31/2023 by Adolfo Key MD at OR [facility] [employer] 09/01/2023 [id number] / / [id number] Description:prostate documented as of this encounter Visit [...] Discussed due to patient's condition Care Teams Mushroom Farmer Relationship Specialty Start Date End Date Ray Royal MD [address] [place] [address] [place] [address] PCP - General Family Medicine 10/22/18 documented as of this encounter
--- OUTSIDE RECORDS SUMMARY | 2023-09-20 05:56 | External Medical Summary | Summary of Care ---
Author Name Unknown Organization [facility] Address [address] [place] [address] Phone [phone] Care Team Providers Care Bordereau Clerk Name Role Phone Ray Royal MD Primary Care Provider [phone] Reason for Visit * Reason Onset Date Comments Test Results 07/07/2023 Torrez Encounter Details Date Type Department Care Team (Late st Contact Info) Description 07/07/2023 Telephone Access Center, [place] 100 [address] [facility] *DO NOT REMOVE THIS DEPARTMENT* [place] [address] Services, Scheduling [address] [place] [address] Test Results (Torrez) Allergies No known active allergiesdocumented as of [...] Diagnosed Date Food insecurity 06/05/2023 Overview: Per [facility] Protocol Urethral stricture 04/03/2023 Slow urinary [...] 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 Primary hypertension documented as of this encounter (statuses as of 07/11/2023) Immunizations Name Administration Dates Next Due COVID-19 mRNA, LNP-s, No Pre serve, 2-Dose Series ([employer]) 02/23/2021,02/02/2021 HEP A - Hepatitis A (Adult > 18 yrs) 09/21/2020, 02/10/2020 Hepatitis B, 20+ yrs 09/21/2020,03/23/2020,02/09 Pneumococcal Conjugate Vacci ne, 20-valent ([id number]) 10/26/2022(Deferred: Patient Refused) Pneumococcal Polysaccharide PPV23 (Pneumovax) [...] Telephone Encounter - Teto Torrez MD - 07/10/2023 3:59 PM EST I spoke with him on the phone and reviewed the PET-CT scan findings, has progression of the diseasenoted mainly in the liver, stable pancreatic lesion noted. He has an appointment with me next week and the will go over the PET-CT scan images and treatment plan. * Telephone Encounter - Starla Casanova RN - 07/10/2023 12:07 PM EST Left message for patient that Dr Torrez is out of the office today but that we will follow up on PETresults. Dr Torerz: please advise. * Telephone Encounter - Mona Nunez OSA - 07/10/2023 8:22 AM EST Pt would like a call back about his pet scan results. Please advise. * Telephone Encounter - Benson Cisneros RN - 07/07/2023 4:[address] Torrez, are you able to call patient to discuss. Thank you. * Telephone Encounter - Mona Nunez OSA - 07/07/2023 4:15 PM EST Pt would like a call back to go over the pet scan. Please advise. documented in this encounter Plan of Treatment Upcoming Encounters Date Type Department Care Team (Late st Contact Info) Description 07/12/2023 10:00 AM EST Office Visit Palliative Medicine [facility] 200 [place] [address] Shante Prado MD [address] [place] [address] [place] [address] 07/17/2023 9:00 AM EST Laboratory Laboratory, [facility] 132 [facility] [phone] [facility] 132 [facility] [place] [address] 07/18/2023 9:15 AM EST Office Visit Hematology/Oncology [address] [place] [address] Teto Torrez MD [address] [place] [address], [place] [address] 07/18/2023 9:45 AM EST [facility] 200 [place] [address] Neisha, Chair 10 Hem [address]c [address] [place] [address] 08/09/2023 10:30 AM EST Office Visit Orthopaedics [facility] 132 [facility] [place] [address] Judy Clay MD 132 [facility] [place] [address] 08/25/2023 9:45 AM EST Telemedicine Urology Luli Sanchez [address] [place] [phone] Adolfo Key MD [address] [place] [address] 7, Telemed [facility] Urology Ex [address] [place] [address] 11/15/2023 11:30 AM EDT Office Visit Urology, [facility] [address] [place] [address] Adolfo Key MD 27 [facility] [address] [place] [address] Health Maintenance Due Date Last Done Comments HIV Screening 1975 Depression Screening 09/29/2020 09/30/2019 COVID-19 Vaccine (3 - Pfizer risk series) 03/23/2021 02/23/2021, 02/02/2021 Pneumococcal Vaccine: Pediatrics (0 to 5 Years) and At-Risk Patients (6 to 64 Years) (2 - PCV) 05/10/2022 05/10/2021 GFR 07/04/2024 07/04/2023, 05/27, 06/05/2023, Additional history exists COLONOSCOPY-EVERY 2 YRS AGES 18-100 01/03/2025 01/03/2023, 01/03/2023, 04/17/2020, Additional history exists Albumin/Creatinine Ratio 09/14/2025 023, 09/07/2021, 10/22/2018 Diabetes Screening 07/04/2026 07/04/2023, 1 08/21/2022, 06/05/2023, Additional history exists Lipid Panel 11/25/2027 11/24/2022, 10/22/2018 DTaP,Tdap,and Td Vaccines (3 - Td or [...] this encounter Medical Devices Implanted Type Area Grinding Wheel Operator Device Identifier Shelf Expiration Date Model / Serial / Lot Port Implant W/8f Poly Cath - [id number] Implanted:Qty : 1 on 12/01/2022 by Brad Cerda DO at OR [facility] Right: Chest CR BARD : PERIPHERAL VASCULAR [id number] 02/24/2024 [id number] / / [id number] System Urolift - [id number] Implanted:Qty : 6 on 05/31/2023 by Adolfo Key MD at OR [facility] [employer] 09/01/2023 [id number] / / [id number] Description:prostate documented as of this encounter Advance [...] Discussed due to patient's condition Care Teams Bordereau Clerk Relationship Specialty Start Date End Date Ray Royal MD [address] [place] [address] [place] [address] PCP - General Family Medicine 10/22/18 documented as of this encounter
--- OUTSIDE RECORDS SUMMARY | 2023-09-20 05:56 | External Medical Summary | Summary of Care ---
Author Name Unknown Organization [facility] Address [address] [place] [address] Phone [phone] Care Team Providers Care Siderographer Name Role Phone Ray Royal MD Primary Care Provider [phone] Reason for Visit * Reason Onset Date Comments Test Results 07/07/2023 Torrez Encounter Details Date Type Department Care Team (Late st Contact Info) Description 07/07/2023 Telephone Access Center, [place] [address] [facility] *DO NOT REMOVE THIS DEPARTMENT* [place] [address] Services, Scheduling [address] [place] [address] Test Results (Torrez) Allergies No known active [...] Diagnosed Date Food insecurity 06/05/2023 Overview: Per [facility] Protocol Urethral stricture 04/03/2023 Slow urinary [...] mRNA, LNP-s, No Pre serve, 2-Dose Series ([employer]) 02/23/2021,02/02/2021 HEP A - Hepatitis A (Adult > 18 yrs) 09/21/2020, 02/10/2020 Hepatitis B, 20+ yrs 09/21/2020,03/23/2020,02/09 Pneumococcal Conjugate Vacci ne, 20-valent ([id number]) 10/26/2022(Deferred: Patient Refused) Pneumococcal Polysaccharide PPV23 (Pneumovax) [...] we will follow up on PETresults. Dr Torrez: please advise. * Telephone Encounter - Mona [...] Description 07/17/2023 9:00 AM EST Laboratory Laboratory, [facility] [address] [place] [phone] [facility] [address] [place] [address] 07/18/2023 9:15 AM EST Office Visit Hematology/Oncology [facility] [address] [place] [address] Teto Torrez MD [address] [place] [address] 07/18/2023 9:45 AM EST Hem/Onc Treatment Hematology/Oncology Treatment, [place] [address] [place] [address] Neisha, Chair 10 Hem Onc Scenery 200 [facility] [place] [address] 08/09/2023 10:30 AM EST Office Visit Orthopaedics [facility] [address] [place] [address] Judy Clay MD [address] [place] [address] 08/25/2023 9:45 AM EST Telemedicine Urology Luli Sanchez [address] [place] [address] Adolfo Key MD [address] [place] [address] 7, Telemed [facility] Urology Ex Rm [address] [place] [address] 11/15/2023 11:30 AM EDT Office Visit Urology, [facility] [address] [place] [address] Adolfo Key MD [address] [place] [address] Health Maintenance Due Date Last Done Comments [...] this encounter Medical Devices Implanted Type Area Cable Systems Installer Device Identifier Shelf Expiration Date Model / Serial / Lot Port Implant W/8f Poly Cath - [id number] Implanted:Qty : 1 on 12/01/2022 by Brad Cerda, at OR [facility] Right: Chest CR BARD : PERIPHERAL VASCULAR [id number] 02/24/2024 [id number] / / [id number] System Urolift - [id number] Implanted:Qty : 6 on 05/31/2023 by Adolfo Key MD at OR [facility] [employer] 09/01/2023 [id number] / / [id number] Description:prostate documented as of this encounter Advance [...] Discussed due to patient's condition Care Teams Siderographer Relationship Specialty Start Date End Date Ray Royal MD [address] [place] [address] [place] [address] PCP - General Family Medicine 10/22/18 documented as of this encounter
--- OUTSIDE RECORDS SUMMARY | 2023-09-20 05:56 | External Medical Summary | Summary of Care ---
Author Name Unknown Organization [facility] Address [address] [place] [address] Phone [phone] Care Team Providers Care Professional Programmer Analyst Name Role Phone Ray Royal MD Primary Care Provider [phone] Encounter Details Date Type Department Care Team (Late st Contact Info) Description 07/11/2023 Orders Only Hematology/Oncology Tisha Driver [place] 200 [facility] [place] [address] Teto Torrez MD 200 [facility] [place] [address] Adenocarcinoma of pancreas (HCC)*; Metastasis to liver [...] Diagnosed Date Food insecurity 06/05/2023 Overview: Per [facility] Protocol Urethral stricture 04/03/2023 Slow [...] yrs 09/21/2020,03/23/2020,02/09 Pneumococcal Conjugate Vacci ne, 20-valent ([id number]) 10/26/2022(Deferred: Patient Refused) Pneumococcal Polysaccharide PPV23 (Pneumovax) [...] gemcitabine on 07/18/2023. documented in this encounter Plan of Treatment Upcoming Encounters Date Type Department Care Team (Late st Contact Info) Description 07/12/2023 10:00 AM EST Office Visit Palliative Medicine [address] [place] [address] Shante Prado MD [address] [place] [address] 07/17/2023 9:00 AM EST Laboratory Laboratory, [facility] 132 [place] [phone] [facility] 132 [place] [address] 07/18/2023 9:15 AM EST Office Visit Hematology/Oncology [address] [place] [address] Teto Torrez MD [address] [place] [address] [place] [address] 07/18/2023 9:45 AM EST Hem/Onc Treatment Hematology/Oncology Treatment, [address] [address] Neisha, Chair 10 Hem Onc [address] [place] [address] 08/09/2023 10:30 AM EST Office Visit Orthopaedics [facility] [address] [place] [address] Judy Clay MD [address] [place] [address] 08/25/2023 9:45 AM EST Telemedicine Urology Luli Sanchez [address] [place] [address] Adolfo Key MD [address] [place] [address] 7, Telemed [facility] Urology Ex Rm 132 [place] [address] 11/15/2023 11:30 AM EDT Office Visit Urology, [facility] [address] [place] [address] Adolfo Key MD [address] [place] [address] Health Maintenance Due Date Last Done Comments [...] this encounter Medical Devices Implanted Type Area Commissions Manager Device Identifier Shelf Expiration Date Model / Serial / Lot Port Implant W/8f Poly Cath - [id number] Implanted:Qty : 1 on 12/01/2022 by Brad Cerda DO at OR [facility] Right: Chest CR BARD : PERIPHERAL VASCULAR [id number] 02/24/2024 [id number] / / [id number] System Urolift - [id number] Implanted:Qty : 6 on 05/31/2023 by Adolfo Key MD at OR [facility] [employer] 09/01/2023 [id number] / / [id number] Description:prostate documented as of this encounter Visit [...] Discussed due to patient's condition Care Teams Professional Programmer Analyst Relationship Specialty Start Date End Date Ray Royal MD [address] [place] [address] [place] [address] PCP - General Family Medicine 10/22/18 documented as of this encounter
--- OUTSIDE RECORDS SUMMARY | 2023-09-20 05:56 | External Medical Summary | Summary of Care ---
Author Name Unknown Organization [facility] Address [address] [place] [address] Phone [phone] Care Team Providers Care Machine Whitener Name Role Phone Ray Royal MD Primary Care Provider [phone] Reason for Visit * Reason Onset Date Comments Test Results 07/07/2023 Torrez Encounter Details Date Type Department Care Team (Late st Contact Info) Description 07/07/2023 Telephone Access Center, [place] 100 N [facility] *DO NOT REMOVE THIS DEPARTMENT* [place] [address] Services, Scheduling [address] [place] [address] Test Results (Torrez) Allergies No known active allergiesdocumented as of this encounter (statuses as of 07/10/2023) Medications Medication Sig Dispensed Refills Start Date [...] as of this encounter (statuses as of 07/10/2023) Active Problems Problem Noted Date Diagnosed Date Food insecurity 06/05/2023 Overview: Per [facility] Protocol Urethral stricture 04/03/2023 Slow urinary [...] as of this encounter (statuses as of 07/10/2023) Immunizations Name Administration Dates Next Due COVID-19 mRNA, LNP-s, No Pre serve, 2-Dose Series ([employer]) 02/23/2021,02/02/2021 HEP A - Hepatitis A (Adult > 18 yrs) 09/21/2020, 02/10/2020 Hepatitis B, 20+ yrs 09/21/2020,03/23/2020,02/09 Pneumococcal Conjugate Vacci ne, 20-valent ([id number]) 10/26/2022(Deferred: Patient Refused) Pneumococcal Polysaccharide PPV23 (Pneumovax) [...] Description 07/17/2023 9:00 AM EST Laboratory Laboratory, [facility] [address] [place] [address] [facility] [address] [place] [address] 07/18/2023 9:15 AM EST Office Visit Hematology/Oncology [facility] [address] [place] [address] Teto Torrez MD [address] [place] [address] 07/18/2023 9:45 AM EST Hem/Onc Treatment Hematology/Oncology Treatment, [place] [address] [place] [address] Neisha, Chair 10 Hem Onc Scenery 200 [facility] [place] [address] 08/09/2023 10:30 AM EST Office Visit Orthopaedics [facility] [address] [place] [address] Judy Clay MD [address] [place] [address] 08/25/2023 9:45 AM EST Telemedicine Urology Luli Sancehz [address] [place] [address] Adolfo Key MD [address] [place] [address] 7, Telemed [facility] Urology Ex Rm [address] [place] [address] 11/15/2023 11:30 AM EDT Office Visit Urology, [facility] [address] [place] [address] Adolfo Key MD [address] [place] [address] Health Maintenance Due Date Last Done Comments [...] encounter Medical Devices Implanted Type Area Oil Pipe Inspector Device Identifier Shelf Expiration Date Model / Serial / Lot Port Implant W/8f Poly Cath - [id number] Implanted:Qty : 1 on 12/01/2022 by Brad Cerda, at OR [facility] Right: Chest CR BARD : PERIPHERAL VASCULAR [id number] 02/24/2024 [id number] / / [id number] System Urolift - [id number] Implanted:Qty : 6 on 05/31/2023 by Adolfo Key MD at OR [facility] [employer] 09/01/2023 [id number] / / [id number] Description:prostate documented as of this encounter Advance [...] Discussed due to patient's condition Care Teams Machine Whitener Relationship Specialty Start Date End Date Ray Roayl MD [address] [place] [address] [place] [address] PCP - General Family Medicine 10/22/18 documented as of this encounter
--- OUTSIDE RECORDS SUMMARY | 2023-09-20 05:57 | External Medical Summary ---
Author Name Unknown Address Unknown Organization K0G[facility] [address] [place] [address] Laboratory Report Ordering Provider Test Date Status TJ SMITH 07/04/2023 09:33:46 Final Observation Date Value Abnormality Reference (Units ) Status WBC, Total 07/04/2023 09:33:46 4.12 4.00-10.8 0 (K/uL) Final RBC 07/04/2023 09:33:46 3.55 4.50-5.25 (M/uL) Final Hemoglobin 07/04/2023 09:33:46 11.6 Below low normal 14 .0-16.8 (g/dL) Final HCT 07/04/2023 09:33:46 36.6 Below low normal 40. 0-48.4 (%) Final MCV 07/04/2023 09:33:46 103.1 82.0-99.5 (fL) Final MCH 07/04/2023 09:33:46 32.7 27.0-34.0 (pg) Final MCHC 07/04/2023 09:33:46 31.7 32.0-36.0 (g/dL) Final RDW 07/04/2023 09:33:46 14.0 11.5-15.5 (%) Final Platelets 07/04/2023 09:33:46 138 Below low normal 140 -400 (K/uL) Final MPV 07/04/2023 09:33:46 9.5 6.6-11.1 ( fL) Final Performing Location LABORATORY [facility] [address] [place] [address]
--- OUTSIDE RECORDS SUMMARY | 2023-09-20 05:57 | External Medical Summary | Summary of Care ---
Author Name Unknown Organization [facility] Address [address] [place] [address] Phone [phone] Care Team Providers Care Rpg Programmer Name Role Phone Ray Royal MD Primary Care Provider + [phone] Reason for Visit * Reason Comments Outpatient Testing Encounter Details Date Type Department Care Team (Late st Contact Info) Description 07/04/2023 10:30 AM EST Laboratory Laboratory, [facility] [address] [place] [address] [facility] [address] [place] [address] Adenocarcinoma of pancreas (HCC); Metastasis to liver (HCC); Hypomagnesemia Allergies No known active allergiesdocumented as of this encounter (statuses as of 07/04/2023) Medications Medication Sig Dispensed Refills Start Date [...] as of this encounter (statuses as of 07/04/2023) Active Problems Problem Noted Date Diagnosed Date Food insecurity 06/05/2023 Overview: Per [facility] Protocol Urethral stricture 04/03/2023 Slow urinary [...] as of this encounter (statuses as of 07/04/2023) Immunizations Name Administration Dates Next Due COVID-19 mRNA, LNP-s, No Pre serve, 2-Dose Series (Pfizer) 02/23/2021,02/02/2021 HEP A - Hepatitis A (Adult > 18 yrs) 09/21/2020, 02/10/2020 Hepatitis B, 20+ yrs 09/21/2020,03/23/2020,02/09 Pneumococcal Conjugate Vacci ne, 20-valent ([id number]) 10/26/2022(Deferred: Patient Refused) Pneumococcal Polysaccharide PPV23 (Pneumovax) [...] Care Team (Late st Contact Info) Description 07/05/2023 11:00 AM EST Office Visit Hematology/Oncology [facility] [place] [address] [facility] [place] [address] Teto Torrez MD [address] [facility] [place] [address] 07/05/2023 11:30 AM EST Hem/Onc Treatment Hematology/Oncology Treatment, [place] [address] [facility] [address] [place] [address] Neisha, Chair 2 Hem Onc [address] [place] [address] 07/07/2023 11:45 AM EST Imaging Radiology, [facility] [address] [place] [address] 08/09/2023 10:30 AM EST Office Visit Orthopaedics [facility] 132 [facility] [place] [address] Judy Clay MD 132 [facility] [place] [address] 08/25/2023 9:45 AM EST Telemedicine Urology Luil Sanchez [address] [place] [address] [place] [address] Adolfo Key MD [address] [place] [address] [place] [address] 7, Telemed [facility] Urology Ex 132 [facility] [place] [address] 11/15/2023 11:30 AM EDT Office Visit Urology, [facility] [address] [place] [address] Adolfo Key MD 27 [facility] [place] [address] [place] [address] Pending Results Name Type Priority Associated Diagnoses Date /Time COMPREHENSIVE METABOLIC PANEL Lab STAT Adenocarcinoma of pancreas (HCC) Metastasis to liver (HCC) 07/04/2023 9:33 AM EST MAGNESIUM Lab STAT Hypomagnesemia 07/04/2023 9:33 AM EST Health Maintenance Due Date Last Done Comments HIV Screening 1975 Depression Screening 09/29/2020 09/30/2019 COVID-19 Vaccine (3 - Pfizer risk series) 03/23/2021 02/23/2021, 02/02/2021 Pneumococcal Vaccine: Pediatrics (0 to 5 Years) and At-Risk Patients (6 to 64 Years) (2 - PCV) 05/10/2022 05/10/2021 GFR 06/20/2024 06/20/2023, 05/26, 05/23/2023, Additional history exists COLONOSCOPY-EVERY 2 YRS AGES 18-100 01/03/2025 01/03/2023, 01/03/2023, 04/17/2020, Additional history exists Albumin/Creatinine Ratio 09/14/2025 023, 09/07/2021, 10/22/2018 Diabetes Screening 06/20/2026 06/20/2023, 1 08/06/2022, 05/23/2023, Additional history exists Lipid Panel 11/25/2027 11/24/2022, [...] Medical Devices Implanted Type Area Professor Of Geography Device Identifier Shelf Expiration Date Model / Serial / Lot Port Implant W/8f Poly Cath - [id number] Implanted:Qty : 1 on 12/01/2022 by Brad Cerda DO at OR [facility] Right: Chest CR BARD : PERIPHERAL VASCULAR [id number] 02/24/2024 [id number] / / [id number] System Urolift - [id number] Implanted:Qty : 6 on 05/31/2023 by Adolfo Key MD at OR [facility] [employer] 09/01/2023 [id number] / / [id number] Description:prostate documented as of this encounter Procedures Procedure Name Priority Date/Time Associated Diagnosis Comments DIFFERENTIAL, AUTOMATED STAT 07/04/2023 9:33 AM EST Adenocarcinoma of pancreas (HCC) Metastasis to liver (HCC) CBC STAT 07/04/2023 9:33 AM EST Adenocarcinoma of pancreas (HCC) Metastasis to liver (HCC) CBC STAT 07/04/2023 9:33 AM EST Adenocarcinoma of pancreas (HCC) Metastasis to liver (HCC) documented in this encounter Results * (ABNORMAL) DIFFERENTIAL, AUTOMATED (07/04/2023 9:33 AM EST) WBC 4.12 4.00 - 10.80 K/uL 07/04/2023 9:40 AM EST [facility]10 Neutrophils % 72.9 40.0 - 75.0 % 07/04/2023 9:40 AM EST [facility] [place] 57[facility]10 Lymphocytes % 15.3(L) 18.0 - 42.0 % 07/04/2023 9:40 AM EST [facility] 57[facility]10 Monocytes % 10.9 1.0 - 11.0 % 07/04/2023 9:40 AM EST [facility] [place] [facility] 57[facility]10 Eosinophils % 0.7 0.0 - 6.0 % 07/04/2023 9:40 AM EST [facility] [place] 57-10 Basophils % 0.2 0.0 - 2.0 % 07/04/2023 9:40 AM EST [facility] [place] 57-10 Absolute Neutrophils 3.00 1.80 - 7.70 K/uL 07/04/2023 9:40 AM EST [facility] 57-10 Absolute Lymphocytes 0.63(L) 1.00 - 4.80 K/ul 07/04/2023 9:40 AM EST [facility] 57-10 Absolute Monocytes 0.45 0.00 - 1.10 K/uL 07/04/2023 9:40 AM EST [facility] 57-10 Absolute Eosinophils 0.03 0.00 - 0.70 K/uL 07/04/2023 9:40 AM EST [facility] [place] 57-10 Absolute Basophils 0.01 0.00 - 0.20 K/uL 07/04/2023 9:40 AM EST [facility] 57-10 Blood Venous blood specimen / Unknown Venipuncture / Unknown 07/04/2023 9:33 AM EST 07/04/2023 9:33 AM EST Teto Torrez MD LAB BLOOD ORDERABLES [facility] [place] [address] [place] [id number] * (ABNORMAL) CBC (07/04/2023 9:33 AM EST) WBC 4.12 4.00 - 10.80 K/uL 07/04/2023 9:40 AM EST [facility] 57-10 RBC 3.55 4.50 - 5.25 M/uL 07/04/2023 9:40 AM EST [facility] 57-10 HGB 11.6(L) 14.0 - 16.8 g/dL 07/04/2023 9:40 AM EST [facility] 57-10 HCT 36.6(L) 40.0 - 48.4 % 07/04/2023 9:40 AM EST [facility] 57-10 MCV 103.1 82.0 - 99.5 fL 07/04/2023 9:40 AM EST [facility] [place] [facility] 57-10 MCH 32.7 27.0 - 34.0 pg 07/04/2023 9:40 AM EST [facility] [place] 57-10 MCHC 31.7 32.0 - 36.0 g/dL 07/04/2023 9:40 AM EST [facility] [place] 57-10 RDW 14.0 11.5 - 15.5 % 07/04/2023 9:40 AM EST [facility] [place] 57-10 PLT 138(L) 140 - 400 K/uL 07/04/2023 9:40 AM EST [facility] [place] 57-10 MPV 9.5 6.6 - 11.1 fL 07/04/2023 9:40 AM EST [facility] [place] 57-10 Blood Venous blood specimen / Unknown Venipuncture / Unknown 07/04/2023 9:33 AM EST 07/04/2023 9:33 AM EST Teto Torrez MD LAB BLOOD ORDERABLES [facility] [place] 57-10 [address] [place] [address] documented in this encounter Visit Diagnoses Diagnosis Adenocarcinoma of pancreas (HCC) Malignant neoplasm of pancreas, part unspecified Metastasis to liver (HCC) Secondary malignant neoplasm of liver Hypomagnesemia Disorders of magnesium metabolism documented in this encounter Advance Directives Latest [...] Discussed due to patient's condition Care Teams Rpg Programmer Relationship Specialty Start Date End Date Ray Royal MD [address] [place] [address] [place] [phone] PCP - General Family Medicine 10/22/18 documented as of this encounter
--- OUTSIDE RECORDS SUMMARY | 2023-09-20 05:57 | External Medical Summary | Summary of Care ---
Author Name Unknown Organization [facility] Address [address] [place] [address] Phone [phone] Care Team Providers Care Nursery Supervisor Name Role Phone Ray Royal MD Primary Care Provider [phone] Encounter Details Date Type Department Care Team (Late st Contact Info) Description 07/04/2023 Orders Only [facility] [address] [place] [address] Teto Torrez MD [address] [place] [address] Allergies No known active allergiesdocumented as of [...] 6 hours. 30 Tablet 0 06/28/2023 Active Hospital, Clinic, or Other Facility Administered Medication Ordered Dose Route Frequency Start Date End Date Status Fluorouracil (5-Fu) 6,100 mg in NSS 230 mL infusion 6100 mg IV CONTINUOUS 07/04/2023 07/06/2023 Active documented as of this encounter (statuses [...] mRNA, LNP-s, No Pre serve, 2-Dose Series (fav.or.it) 02/23/2021,02/02/2021 HEP A - Hepatitis A (Adult > 18 yrs) 09/21/2020, 02/10/2020 Hepatitis B, 20+ yrs 09/21/2020,03/23/2020,02/09 Pneumococcal Conjugate Vacci ne, 20-valent ([id number]) 10/26/2022(Deferred: Patient Refused) Pneumococcal Polysaccharide PPV23 (Pneumovax) [...] Care Team (Latest Contact Info) Description 07/05/2023 11:00 AM EST Office Visit Hematology/Oncolog y [facility] [place] [address] [place] [address] Teto Torrez MD [address] [place] [address] 07/05/2023 11:30 AM EST Hem/Onc Treatment Hematology/Oncolog y Treatment, [place] [address] [place] [address] Neisha, Chair 2 Hem Onc [address] [place] [address] Adenocarcinoma of pancreas (HCC)*; Metastasis to liver (HCC); Encounter for antineoplastic chemotherapy 07/07/2023 11:45 AM EST Imaging Radiology, [facility] [address] [place] [id number] 08/09/2023 10:30 AM EST Office Visit Orthopaedics [facility] 132 [facility] [place] [address] Judy Clay MD 132 [facility] [place] [address] 08/25/2023 9:45 AM EST Telemedicine Urology Luli Sanchez [address] [place] [address] [place] [address] Adolfo Key MD [address] [place] [address] [place] [address] 7, Telemed [facility] Urology Ex [address] [place] [address] 11/15/2023 11:30 AM EDT Office Visit Urology, [facility] [address] [place] [address] Adolfo Key MD 27 [facility] [address] [place] [address] Health Maintenance Due Date Last Done Comments [...] encounter Medical Devices Implanted Type Area Director Of Radio Services Device Identifier Shelf Expiration Date Model / Serial / Lot Port Implant W/8f Poly Cath - [id number] Implanted:Qty : 1 on 12/01/2022 by Brad Cerda DO at OR [facility] Right: Chest CR BARD : PERIPHERAL VASCULAR [id number] 02/24/2024 [id number] / / [id number] System Urolift - [id number] Implanted:Qty : 6 on 05/31/2023 by Adolfo Key MD at OR [facility] [employer] 09/01/2023 [id number] / / [id number] Description:prostate documented as of this encounter Advance [...] Discussed due to patient's condition Care Teams Nursery Supervisor Relationship Specialty Start Date End Date Ray Royal MD [address] [place] [address] [place] [address] PCP - General Family Medicine 10/22/18 documented as of this encounter
--- OUTSIDE RECORDS SUMMARY | 2023-09-20 05:57 | External Medical Summary ---
Author Name Unknown Address Unknown Organization [facility] [place] [address] Laboratory Report Ordering Provider Test Date Status TJ SMITH 07/04/2023 09:33:46 Final Observation Date Value Abnormality Reference (Units ) Status SYNC LEUKOCYTES IN BLOOD BY AUTOMATED COUNT 07/04/2023 09:33:46 4.12 4.00-10.80 (K/uL) Final Segs 07/04/2023 09:33:46 72.9 40.0-75.0 (%) Final Lymphs % 07/04/2023 09:33:46 15.3 Below low normal 18.0-42.0 (%) Final Monos 07/04/2023 09:33:46 10.9 1.0-11.0 (%) Final Eosinophils 07/04/2023 09:33:46 0.7 0.0-6.0 (%) Final Basos 07/04/2023 09:33:46 0.2 0.0-2.0 (%) Final Absolute Segs 07/04/2023 09:33:46 3.00 1.80-7.70 (K/uL) Final Lymphs, absolute 07/04/2023 09:33:46 0.63 Below low normal 1.00-4.80 (K/ul) Final Monos, Abs 07/04/2023 09:33:46 0.45 0.00-1.10 (K/uL) Final Eos, Abs 07/04/2023 09:33:46 0.03 0.00-0.70 (K/uL) Final Basos, Abs 07/04/2023 09:33:46 0.01 0.00-0.20 (K/uL) Final Performing Location [facility] 0 - [address] [place] [address]
--- OUTSIDE RECORDS SUMMARY | 2023-09-20 05:57 | External Medical Summary | Summary of Care ---
Author Name Unknown Organization [facility] Address [address] [place] [address] Phone [phone] Care Team Providers Care Psychiatric Secretary Name Role Phone Ray Royal MD Primary Care Provider + [phone] Reason for Visit * Reason Comments Procedure Pump disconnect Encounter Details Date Type Department Care Team (Latest Contact Info) Description 07/07/2023 10:00 AM EST Immunization/ Injection Hematology/Oncology Treatment, [place] [address] [place] [address] Nurse, Med [address] [place] [address] Adenocarcinoma of pancreas (HCC)*; Metastasis to liver (HCC); Encounter for antineoplastic chemotherapy; Encounter for adjustment and management of vascular access device Allergies No known active allergiesdocumented as of this encounter (statuses as of 07/07/2023) Medications Medication Sig Dispensed Refills Start Date [...] as of this encounter (statuses as of 07/07/2023) Active Problems Problem Noted Date Diagnosed Date Food insecurity 06/05/2023 Overview: Per [facility] Protocol Urethral stricture 04/03/2023 Slow urinary [...] as of this encounter (statuses as of 07/07/2023) Immunizations Name Administration Dates Next Due COVID-19 mRNA, LNP-s, No Pre serve, 2-Dose Series (Pfizer) 02/23/2021,02/02/2021 HEP A - Hepatitis A (Adult > 18 yrs) 09/21/2020, 02/10/2020 Hepatitis B, 20+ yrs 09/21/2020,03/23/2020,02/09 Pneumococcal Conjugate Vacci ne, 20-valent ([id number]) 10/26/2022(Deferred: Patient Refused) Pneumococcal Polysaccharide PPV23 (Pneumovax) [...] as of this encounter Nursing Notes * Alejandrina Tomlinson RN - 07/07/2023 10:53 AM EST Chair 4, pump disconnect. Pt has no acute concerns to report and stated abdominal pain is "a littlebetter" since treatment on Monday. Pt was scheduled for pump disconnection 2 hours early today (44 hours after initiation of 5FU infusion) due to a scheduled PET scan appt. The outer ballon of the elastomeric pump is deflated, but the inner balloon is still rigid and not visibly deflated at all.Considering calculated infusion rate (5ml/hr) and medication volume, approximately 10ml should haveremained in the pump at 44 hours since start of infusion. Pt's VAD tegaderm dressing is not intact along the distal border. Pt stated that the dressing "came loose" yesterday and he "tried to tape itdown". Lozada needle appears intact; site around lozada needle is clean and dry, no erythema, warmth or edema noted with palpation; no signs of infiltration noted. Attempted to flush with NSS; negativeblood return noted, and resistance met with attempted flush. Applied light pressure to VAD; positive blood return noted and NSS flushed easily. Lozada needle removed. Dr. Torrez notified. Pt dischargedin stable condition. documented in this encounter Plan of Treatment Upcoming Encounters Date Type Department Care Team (Late st Contact Info) Description 07/17/2023 9:00 AM EST Laboratory Laboratory, Sarah [facility] [place] [address] [place] [phone] Patricio Cardo[facility] [address] [place] [address] 07/18/2023 9:15 AM EST Office Visit Hematology/Oncology [place] 200 [facility] [place] [address] Teto Torrez MD [address] [place] [address] 07/18/2023 9:45 AM EST Hem/Onc Treatment Hematology/Oncology Treatment, [place] [address] [place] [address] Park, Chair 10 Hem Onc Scen[address] [place], [place] [address] 08/09/2023 10:30 AM EST Office Visit Orthopaedics [facility] 132 [facility] [place] [address] Judy Clay MD 132 [facility] [place] [address] 08/25/2023 9:45 AM EST Telemedicine Urology Luli Sanchez [address] [place] [address] [place] [address] Adolfo Key MD [address] [place] [address] [place] [address] 7, Telemed [facility] Urology Ex Rm [address] [place] [address] 11/15/2023 11:30 AM EDT Office Visit Urology, [facility] [address] [place] [address] Adolfo Key MD [address] [place] [address] [place] [address] Health Maintenance Due Date Last Done Comments [...] this encounter Medical Devices Implanted Type Area B2B Sales Representative Device Identifier Shelf Expiration Date Model / Serial / Lot Port Implant W/8f Poly Cath - [id number] Implanted:Qty : 1 on 12/01/2022 by Brad Cerda DO at OR [facility] Right: Chest CR BARD : PERIPHERAL VASCULAR [id number] 02/24/2024 [id number] / / [id number] System Urolift - [id number] Implanted:Qty : 6 on 05/31/2023 by Adolfo Kye MD at OR [facility] [employer] 09/01/2023 [id number] / / [id number] Description:prostate documented as of this encounter Visit Diagnoses Diagnosis Adenocarcinoma of pancreas (HCC)- Primary Malignant neoplasm of pancreas, part unspecified Metastasis to liver (HCC) Secondary malignant neoplasm of liver Encounter for antineoplastic chemotherapy Encounter for adjustment and management of vascular access device documented in this encounter Administered Medications Active Administered Medications - up to 3 most recent administrations Medication Order MAR Action Action Date Dose Rate Site hEParin 100 UNIT/ML Lock Flush inj 500 Units 500 Units (5 mL), IV Lock, PRN Other, IV Flush, Starting on Mon07/07/23 at 1007, Until 07/08/23 at 1006, For 24 hours, Do not flush if lock, PICC, or central line not in place; IV infusing or unable to flush. sodium chloride 0.9 % flush central line 10 mL 10 mL, IV Push, PRN Other, IV Flush, Starting on 07/07/23 at 1007, Until 07/08/23 at 1006, For 24 hours, Do not flush if lock, PICC, or central line not in place; IV infusing or unable to flush. documented in this encounter Advance Directives Latest [...] Discussed due to patient's condition Care Teams Psychiatric Secretary Relationship Specialty Start Date End Date Ray Royal MD [address] [place] [address] [place] [address] PCP - General Family Medicine 10/22/18 documented as of this encounter
--- OUTSIDE RECORDS SUMMARY | 2023-09-20 05:57 | External Medical Summary | Summary of Care ---
Author Name Unknown Organization [facility] Address [address] [place] [address] Phone [phone] Care Team Providers Care Insurance Auditor Name Role Phone Ray Royal MD Primary Care Provider + [phone] Reason for Visit * Reason Comments Chemotherapy C14/D1 - FOLFIRI * Evaluate & Treat - Unlimited Visits (Within 30 days (routine)) - Pending Review Specialty Diagnoses / Procedures Referred By Mike velázquez Referred To Contact Hematology Oncology Diagnoses Gallbladder cancer (HCC) Procedures Eval/Treat Anabell Driver PA-Kayden [address] [place] [address] Referral ID Status Reason Start Date Expiration Date Visits Requested Visits Authorized [id number] Pending Review Specialty Services Required 12/01/2022 12/06/[phone] Encounter Details Date Type Department Care Team (Latest Contact Info) Description 07/05/2023 11:30 AM EST Hem/Onc Treatment Hematology/Oncolog y Treatment, [address] [address] Neisha, Chair [address] On[address] [address] Adenocarcinoma of pancreas (HCC)*; Metastasis to liver (HCC); Encounter for antineoplastic chemotherapy Allergies No known active allergiesdocumented as of this encounter (statuses as of 07/05/2023) Medications Medication Sig Dispensed Refills Start Date [...] as of this encounter (statuses as of 07/05/2023) Active Problems Problem Noted Date Diagnosed Date [...] as of this encounter (statuses as of 07/05/2023) Immunizations Name Administration Dates Next Due COVID-19 mRNA, LNP-s, No Pre serve, 2-Dose Series (Ongage) 02/23/2021,02/02/2021 HEP A - Hepatitis A (Adult > 18 yrs) 09/21/2020, 02/10/2020 Hepatitis B, 20+ yrs 09/21/2020,03/23/2020,02/09 Pneumococcal Conjugate Vacci ne, 20-valent ([id number]) 10/26/2022(Deferred: Patient Refused) Pneumococcal Polysaccharide PPV23 (Pneumovax) [...] of this encounter Nursing Notes * Elham Mcdowell, RN - 07/05/2023 3:54 PM EST Chair 12. Patient saw Dr. Torrez today -- see OV note for details. Patient overall is having increased R side pain just below his ribs, for which he went to [place] ER twice since he was here last, in the last month. CT scan was [place] at [place] and did not show anything at thesite. Per Dr. Torrez, patient has PET scan to be done on Friday 07/07. Dr. Torrez would prefer patientto be disconnected from his 5FU pump at 10 am regardless if it is completed or not, then patient can drive to [place] for his PET scan for 1145. Patient communicated understanding regarding this plan. Patient is ordered Percocet (10 oxycodone/325 Tylenol) Q6 PRN, which was recently added/increased/adjusted just 1 week ago by palliative PELT DROPPER Rachel Rucker. Patient says he does not [...] Team (Late st Contact Info) Description 07/07/2023 10:00 AM EST Immunization/Injection Hematology/Oncology Treatment, [employer] [address] [employer] [address] Nurse, [facility] [address] 07/07/2023 11:45 AM EST Imaging Radiology, [facility] [address] [place] [id number] 07/17/2023 9:00 AM EST Laboratory Laboratory, [facility] [address] [facility] [place] [phone] [facility] [place] [address] 07/18/2023 9:15 AM EST Office Visit Hematology/Oncology [facility] [address] [employer] [address] Teto Torrez MD [address] [employer] [address] 07/18/2023 9:45 AM EST Hem/Onc Treatment Hematology/Oncology Treatment, [employer] [address] [employer], [place] [address] Neisha, Chair 10 Hem Onc [address] [employer] [address] 08/09/2023 10:30 AM EST Office Visit Orthopaedics [facility] [address] [place] [address] Judy Clay MD 132 [facility] [place] [address] 08/25/2023 9:45 AM EST Telemedicine Urology Luli Sanchez [address] [place] [address] Adolfo Key MD [address] [place] [address] 7, Telemed [facility] Urology Ex [address] [place] [address] 11/15/2023 11:30 AM EDT Office Visit Urology, [facility] [address] [place] [address] Adolfo Key MD [address] [facility] [address] [place] [address] Health Maintenance Due Date Last Done Comments [...] this encounter Medical Devices Implanted Type Area Charge Machine Operator Device Identifier Shelf Expiration Date Model / Serial / Lot Port Implant W/8f Poly Cath - [id number] Implanted:Qty : 1 on 12/01/2022 by Brad Cerda DO at OR [facility] Right: Chest CR BARD : PERIPHERAL VASCULAR [id number] 02/24/2024 [id number] / / [id number] System Urolift - [id number] Implanted:Qty : 6 on 05/31/2023 by Adolfo Key MD at OR [facility] [employer] 09/01/2023 [id number] / / [id number] Description:prostate documented as of this encounter Visit Diagnoses Diagnosis Adenocarcinoma of pancreas (HCC)- Primary Malignant neoplasm of pancreas, part unspecified Metastasis to liver (HCC) Secondary malignant neoplasm of liver Encounter for antineoplastic chemotherapy documented in this encounter Administered Medications Active Administered Medications - up to 3 most recent administrations Medication Order MAR Action Action Date Dose Rate Site D5W IV solution Intravenous, at 50 mL/hr, CONTINUOUS, Starting on Mon07/05/23 at 1215, Until Mon07/05/23 at 2214 Start Infusion 07/05/2023 11:45 AM EST 500 mL 50 mL/hr diphenhydrAMINE (Benadryl) inj 50 mg 50 mg, IV Push, ONCE PRN Other, Hypersensitivity Reaction, Starting on Mon07/05/23 at 1137, Until Radha 07/06/23 at 1136, For 24 hours EPINEPHrine 1 MG/ML inj 0.3 mg 0.3 mg, Intramuscular, ONCE PRN Other, Hypersensitivity Reaction or Anaphylaxis, Starting on Mon07/05/23 at 1137, Until Radha 07/06/23 at 1136, For 24 hours hEParin 100 UNIT/ML Lock Flush inj 500 Units 500 Units (5 mL), IV Lock, PRN Other, IV Flush, Starting on Mon07/05/23 at 1137, Until Radha 07/06/23 at 1136, For 24 hours, Do not flush if lock, PICC, or central line not in place; IV infusing or unable to flush. Hydrocortisone Sod Suc (PF) (Solu-Cortef) inj 100 mg 100 mg, IV Push, ONCE PRN Other, Hypersensitivity Reaction, Starting on Mon07/05/23 at 1137, Until Radha 07/06/23 at 1136, For 24 hours sodium chloride 0.9 % flush central line 10 mL 10 mL, IV Push, PRN Other, IV Flush, Starting on Mon07/05/23 at 1137, Until Radha 07/06/23 at 1136, For 24 hours, Do not flush if lock, PICC, or central line not in place; IV infusing or unable to flush. Inactive Administered Medications - up to 3 most recent administrations Medication Order MAR Action Action Date Dose Rate Site Atropine sulfate inj 0.4 mg 0.4 mg, IV Push, ONCE, On Mon07/05/23 at 1215, For 1 dose, Give before CPT-11 Given 07/05/2023 12:31 PM EST 0.4 mg dexAMETHasone (Decadron) tab 12 mg 12 mg, [...] at 1215, For 1 dose, Restricted per [facility] antiemetic guidelines Given 07/05/2023 11:54 AM EST 0.25 mg documented in this encounter Advance Directives Latest [...] Discussed due to patient's condition Care Teams Insurance Auditor Relationship Specialty Start Date End Date Ray Royal MD [address] [place] [address] [place] [phone] PCP - General Family Medicine 10/22/18 documented as of this encounter
--- OUTSIDE RECORDS SUMMARY | 2023-09-20 05:57 | External Medical Summary | Summary of Care ---
Author Name Unknown Organization [facility] Address [address] [place] [address] Phone [phone] Care Team Providers Care Security Site Supervisor Name Role Phone Ray Royal MD Primary Care Provider [phone] Reason for Visit * Reason Onset Date Comments Forms Request 07/07/2023 Encounter Details Date Type Department Care Team (Late st Contact Info) Description 07/07/2023 Telephone [facility]ematology/[facility]cology [facility] [address] [place] [address] Teto Torrez MD [address] [place] [address] Forms Request Allergies No known active allergiesdocumented [...] Diagnosed Date Food insecurity 06/05/2023 Overview: Per [facility] Protocol Urethral stricture 04/03/2023 Slow [...] chronic gout of multiple sites withou melania ludwigs 02/01/2019 Primary hypertension documented as of this encounter (statuses as of 07/07/2023) Immunizations Name Administration Dates Next Due COVID-19 mRNA, LNP-s, No Pre serve, 2-Dose Series (Pfizer) 02/23/2021,02/02/2021 HEP A - Hepatitis A (Adult > 18 yrs) 09/21/2020, 02/10/2020 Hepatitis B, 20+ yrs 09/21/2020,03/23/2020,02/09 Pneumococcal Conjugate Vacci ne, 20-valent ([id number]) 10/26/2022(Deferred: Patient Refused) Pneumococcal Polysaccharide PPV23 (Pneumovax) [...] AM EST Laboratory Laboratory, [facility] [address] [place] [phone] [facility] 132 [facility] [place] [address] 07/18/2023 9:15 AM EST Office Visit Hematology/Oncology [facility] [address] [place] [address] Teto Torrez MD [address] [place] [address] 07/18/2023 9:45 AM EST Hem/Onc Treatment Hematology/Oncology Treatment, [place] [address] [place] [address] Neisha, Chair 10 Hem Onc [address] [place] [address] 08/09/2023 10:30 AM EST Office Visit Orthopaedics [facility] [address] [place] [address] Jduy Clay MD [address] [place] [address] 08/25/2023 9:45 AM EST Telemedicine Urology Luli Sanchez [address] [place] [address] Adolfo Key MD [address] [place] [address] 7, Telemed [facility] Urology Ex Rm [address] [place] [address] 11/15/2023 11:30 AM EDT Office Visit [facility], [facility] [place] [phone] Adolfo Key MD [address] [facility] [address] [place] [address] Health Maintenance Due Date Last Done Comments [...] this encounter Medical Devices Implanted Type Area Interlocker Device Identifier Shelf Expiration Date Model / Serial / Lot Port Implant W/8f Poly Cath - [id number] Implanted:Qty : 1 on 12/01/2022 by Brad Cerda DO at OR [facility] Right: Chest CR BARD : PERIPHERAL VASCULAR [id number] 02/24/2024 [id number] / / [id number] System Urolift - [id number] Implanted:Qty : 6 on 05/31/2023 by Adolfo Key MD at OR [facility] [employer] 09/01/2023 [id number] / / [id number] Description:prostate documented as of this encounter Advance [...] Discussed due to patient's condition Care Teams Security Site Supervisor Relationship Specialty Start Date End Date Ray Royal MD [address] [place] [address] [place] [id number] PCP - General Family Medicine 10/22/18 documented as of this encounter
--- OUTSIDE RECORDS SUMMARY | 2023-09-20 05:57 | External Medical Summary | Summary of Care ---
Author Name Unknown Organization [facility] Address [address] [place] [address] Phone [phone] Care Team Providers Care Parking Enforcement Specialist Name Role Phone Ray Royal MD Primary Care Provider [phone] Reason for Visit * Reason Onset Date Comments Test Results Lab 06/12/2023 Clinically nega tive genetic testing for hereditary cancer risk Encounter Details Date Type Department Care Team ([facility] st Contact Info) Description 06/12/2023 Telephone Genetics [facility] [address] [place] [address] Rachel Johnson, [place] Test Results [...] Diagnosed Date Food insecurity 06/05/2023 Overview: Per [facility] Protocol Urethral stricture 04/03/2023 Slow [...] yrs 09/21/2020,03/23/2020,02/09 Pneumococcal Conjugate Vacci ne, 20-valent ([id number]) 10/26/2022(Deferred: Patient Refused) Pneumococcal Polysaccharide PPV23 (Pneumovax) [...] PM EST I attempted to contact Brad Holm today to disclose genetic test results by phone. Left message [email or web address] requesting callback. ANDRE John 07/04/2023 1:18 PM * Telephone Encounter - Dalia Diaz CHRA - 06/12/2023 11:32 AM EST I contacted Brad Alta today to disclose genetic test results by [employer]. Vault Dragon message sent. Summary: No hereditary cancer syndrome [...] Panel and Expanded Colorectal Cancer Panel at [facility] (91 genes) Genes Included: AIP, ALK, APC, GILBERTO, AXIN2, BAP1, BARD1, BLM, BMPR1A, BRCA1, BRCA2, BRIP1, CASR, CDC73, CDH1, CDK4, CDKN1B, CDKN1C, CDKN2A (p14ARF), CDKN2A ([id number]), CEBPA, CHEK2, CTNNA1, DICER1, DIS3L2, EGFR, EPCAM, FH, FLCN, GATA2, GPC3, GREM1, HOXB13, HRAS, KIT, MAX, MEN1, MET, MITF, MLH1, MSH2, MSH3, MSH6, MUTYH, NBN, NF1, NF2, NTHL1, PALB2, PDGFRA, PHOX2B, PMS2, POLD1, POLE, POT1, PZJOF4I, PTCH1, PTEN, RAD50, RAD51C, RAD51D, RB1, RECQL4, RET, RUNX1, SDHA, SDHAF2, SDHB, SDHC, SDHD, SMAD4, SMARCA4, SMARCB1, SMARCE1, STK11, SUFU, TERC, TERT, GWHQ979, TP53, TSC1, TSC2, VHL, WRN, WT1 + BUB1B, CEP57, ENG, GALNT12, MLH3, RNF43, RPS20 [employer] Core Panel: Mendoza Syndrome A variant of uncertain significance (VUS) was identified: SDHAF2, c.98G>A (p.Tyh12Dkk); ClinVarID: [id number] ANDRE John 06/12/2023 8:53 AM documented in this encounter Plan of Treatment Upcoming Encounters Date Type Department Care Team (Latest Contact Info) Description 07/05/2023 11:00 AM EST Office Visit Hematology/Oncolog y [facility] [place] [address] Teto Torrez MD 200 [facility] [place] [address] 07/05/2023 11:30 AM EST Hem/Onc Treatment Hematology/Oncolog y Treatment, [place] [address] [facility] [address] Neisha, Chair 2 Hem Onc [facility] [place] [address] Adenocarcinoma of pancreas (HCC)*; Metastasis to liver (HCC); Encounter for antineoplastic chemotherapy 07/07/2023 11:45 AM EST Imaging Radiology, [place] [address] [place] [address] 08/09/2023 10:30 AM EST Office Visit Orthopaedics [facility] [address] [address] Judy Clay MD [address] [place] [address] 08/25/2023 9:45 AM EST Telemedicine Urology [address] [place] [address] Adolfo Key MD [address] [place] [address] 7, Telemed [facility] Urology Ex Rm [address] [place] [address] 11/15/2023 11:30 AM EDT Office Visit Urology, [facility] [address] [place] [address] Adolfo Key MD [address] [place] [address] Health Maintenance Due Date Last Done Comments [...] this encounter Medical Devices Implanted Type Area Chief Science Officer Device Identifier Shelf Expiration Date Model / Serial / Lot Port Implant W/8f Poly Cath - [id number] Implanted:Qty : 1 on 12/01/2022 by Brad Cerda DO at OR [facility] Right: Chest CR BARD : PERIPHERAL VASCULAR [id number] 02/24/2024 [id number] / / [id number] System U[employer]ift - [id number] Implanted:Qty : 6 on 05/31/2023 by Adolfo Key MD at OR [facility] [employer] 09/01/2023 [id number] / / [id number] Description:prostate documented as of this encounter Advance [...] Discussed due to patient's condition Care Teams Parking Enforcement Specialist Relationship Specialty Start Date End Date Ray Royal MD [address] [place] [address] [place] [phone] PCP - General Family Medicine 10/22/18 documented as of this encounter
--- OUTSIDE RECORDS SUMMARY | 2023-09-20 05:57 | External Medical Summary ---
Author Name Unknown Address Unknown Organization K0G:LABORATORY [facility] [address] [place] [address] Laboratory Report Ordering Provider Test Date Status TJ SMITH 07/04/2023 09:33:46 Final Observation Date Value Abnormality Reference (Units ) Status BUN 07/04/2023 09:33:46 18 6-20 (mg/dL) Final Creatinine 07/04/2023 09:33:46 0.7 0.6-1.2 (mg/dL) Final Glomerular filtration rate/1.73 sq M.predicted [Volume Rate/Area] in Serum, Plasma or Blood by Creatinine-based formula (CKD-EPI) 07/04/2023 09:33:46 >90 >=60 (mL/min) Final eGFR is calculated based on the CKD-EPI 2020 equation SODIUM 07/04/2023 09:33:46 142 135-146 (m mol/L) Final Potassium 07/04/2023 09:33:46 4.0 3.5-5.1 (m mol/L) Final Cl 07/04/2023 09:33:46 105 98-107 (mm ol/L) Final CO2 07/04/2023 09:33:46 26 22-32 (mmo l/L) Final Anion gap 07/04/2023 09:33:46 11 7-15 (mmol /L) Final Glucose 07/04/2023 09:33:46 120 70-120 (mg /dL) Final Albumin 07/04/2023 09:33:46 3.8 3.8-5.0 (g /dL) Final AST (Aspartate aminotransferase) 07/04/2023 09:33:46 27 10-50 (U/L) Final Alk Phos 07/04/2023 09:33:46 108 35-130 (U/ L) Final Bilirubin, Total 07/04/2023 09:33:46 0.5 <=1 .2 (mg/dL) Final Calcium 07/04/2023 09:33:46 9.6 8.4-10.2 ( mg/dL) Final Protein 07/04/2023 09:33:46 6.9 6.0-8.3 (g /dL) Final ALT (Alanine aminotransferase) 07/04/2023 09:33:46 23 10-50 (U/L) Final [facility] [place] [address]
--- OUTSIDE RECORDS SUMMARY | 2023-09-20 05:57 | External Medical Summary ---
Author Name Unknown Address Unknown Organization K01:[facility]ATORY [facility] - [address] [facility] [address] Laboratory Report Ordering Provider Test Date Status ROYERMATT 07/04/2023 09:33:46 Final Observation Date Value Abnormality Reference (Units ) Status Magnesium 07/04/2023 09:33:46 1.6 1.5-2.6 (m g/dL) Final Performing Location [facility] [address] [facility] [address]
--- OUTSIDE RECORDS SUMMARY | 2023-09-20 05:57 | External Medical Summary | Summary of Care ---
Author Name Unknown Organization [facility] Address [address] [place] [address] Phone [phone] Care Team Providers Care Supervisor Dock Name Role Phone Ray Royal MD Primary Care Provider [phone] Reason for Visit * Reason Comments Follow Up * Evaluate & Treat - Unlimited Visits (Within 30 days (routine)) - Pending Review Specialty Diagnoses / Procedures Referred By Mike velázquez Referred To Contact Hematology Oncology Diagnoses Gallbladder cancer (HCC) Procedures Eval/Treat Anabell Driver PA-C [address] [place] [address] Referral ID Status Reason Start Date Expiration Date Visits Requested Visits Authorized [id number] Pending Review Specialty Services Required 12/01/2022 12/06/[phone] Encounter Details Date Type Department Care Team (Latest Contact Info) Description 07/05/2023 1:15 PM EST Office Visit Hematology/Oncology Tisha Driver [place] [address] [facility] [place] [address] Teto Torrez MD 200 [facility] [place] [address] Adenocarcinoma of pancreas (HCC)*; Metastasis to liver [...] mRNA, LNP-s, No Pre serve, 2-Dose Series (LOC&ALL) 02/23/2021,02/02/2021 HEP A - Hepatitis A (Adult > 18 yrs) 09/21/2020, 02/10/2020 Hepatitis B, 20+ yrs 09/21/2020,03/23/2020,02/09 Pneumococcal Conjugate Vacci ne, 20-valent ([id number]) 10/26/2022(Deferred: Patient Refused) Pneumococcal Polysaccharide PPV23 (Pneumovax) [...] Sign Reading Time Taken Comments Blood Pressure 146/82 07/05/2023 10:54 AM EST Pulse 119 07/05/2023 10:54 AM EST Temperature 37.1 C (98.7 F) 07/05/2023 10:[address] Respiratory Rate 16 07/05/2023 10:54 AM EST Oxygen Saturation 94% 07/05/2023 10:54 AM EST Inhaled Oxygen Concentration - - Weight 118 kg (260 lb 3.2 oz) 07/05/2023 10:54 A M EST Height - - Body Mass Index 32.52 05/31/2023 10:31 AM EST documented in this encounter Progress Notes * Teto Torrez MD - 07/05/2023 11:00 AM EST Hematology/Oncology Outpatient Clinic note [address] [place] [address] Name: Brad Holm Date: 04/24/2023 CHIEF COMPLAINT: [...] colitis.(03/2023) DATE OF DIAGNOSIS: 10/03/22 CURRENT TREATMENT: modified FOLFIRINOX.every 14 days (12/06/2022 -05/23/2023-) Now since 06/06/2023, he is receiving 5-Fluorouracil, leucovorin irinotecan chemotherapy. ( every 2weekly) DIAGNOSTIC WORKUP: He had upper abdominal pain, abnormal liver function test, elevated lipase level, he was evaluated at [facility], had a CT scan of the abdomen pelvis done on 08/08/2022: -ill-defined hypodense lesion involving the pancreatic tail measuring 2.8 x 2.3 x 2.5 cm. Liver showed hepatic steatosis, no masses identified MRI MRCP done on 08/09/2022 at [facility]: -likely pancreatitis with suspected pancreatic tail lesion. -no Biliary ductal dilatation. -hepatic steatosis, splenomegaly. Spleen size measuring 17.5 cm -no focal liver abnormality noted Because of abdominal pain, he was seen at [facility] ER on the following day. CT scan of the abdomen and pelvis with contrast on 08/10/2022 at [facility]: - 1. Subtle stranding adjacent to [...] has come the clinic for the follow-up. Recently few days back he was seen at [facility] ER for the right upper quadrant pain, I reviewed hospital records including CT scan of the abdomen pelvis, overall stable liver lesions, stable pancreatic tail mass noted, no obvious reason for the abdominal pain identified in the imaging studies. Currently he takes oxycodone/acetaminophen combination, perhaps twice a day for the symptomatic treatment of the pain. No increasing diarrhea, no nausea or vomiting at this time. Has neuropathy symptoms which has remained stable. Last dose of oxaliplatin received on 05/23/2023. He also has underlying BPH, he was [...] pancreatic mass on CT Pneumonia 04/04/2023 admitted [facility] Portal hypertension with esophageal varices (HCC) 11/19/2019 Primary hypertension Primary osteoarthritis of both knees 03/15/2020 Trigger middle finger of right hand Venous stasis dermatitis of both lower extremities 03/13/2023 Past Surgical History: Procedure Laterality Date COLONOSCOPY, DIAGNOSTIC (RECTUM) 01/21/2019 serrated adenomatous polyp, fair prep, repeat 1 yr/COLONOSCOPY FLEXIBLE PROXIMAL DIAGNOSTIC performed by Sailaja Gutiérrez MD at END[facility]COPY [facility] COLONOSCOPY, DIAGNOSTIC (RECTUM) 04/17/2020 diverticulosis, repeat 2 yrs / COLONOSCOPY FLEXIBLE PROXIMAL DIAGNOSTIC performed by Conrado Morales MD at ENDOSCOPY [facility] COLONOSCOPY, DIAGNOSTIC (RECTUM) 01/03/2023 normal, repeat 5 years, performed by Sailaja Gutiérrez MD at [facility] CYSTOURETHROSCOPY, W/ TRANSPROSTATIC IMPLANT N/A 05/31/2023 CYSTOURETHROSCOPY, WITH INSERTION OF PERMANENT ADJUSTABLE TRANSPROSTATI IMPLANT; SINGLE IMPLANT performed by Adolfo Key MD at OR [facility] ECHO, COMPLETE (2D), TRANS-THORACIC N/A 01/21/2020 normal LV size and function, EF 60-64%, LAE suggests LV diastolic dysfunction EGD, FLEXIBLE, DIAGNOSTIC 11/19/2019 acid reflux / ESOPHAGOGASTRODUODENOSCOPY (EGD), FLEXIBLE, TRANSORAL, DIAGNOSTIC performed by MD Diego at ENDOSCOPY [facility] EGD, W/ENDOSCOPIC US 11/19/2019 moderate steatohepatitis, GB polyp, enlarged lymph node / ESOPHAGOGASTRODUODENOSCOPY (EGD), FLEXIBLE, TRANSORAL, ENDOSCOPIC ULTRASOUND performed by Conrado Morales MD at ENDOSCOPY [facility] EGD, W/ENDOSCOPIC US 10/03/2022 pancreas adenocarcinoma, fatty liver, GB polyps / ESOPHAGOGASTRODUODENOSCOPY (EGD), FLEXIBLE, TRANSORAL, ENDOSCOPIC ULTRASOUND performed by Conrado Morales MD at ENDOSCOPY [facility] INSER TUNN ACC DEV;5 YRS/OLDER Right 12/01/2022 INSERT TUNNELED CENTRAL VENOUS ACCESS WITH SUBQ PORT performed by Brad Cerda DO at OR [facility] PARTIAL REMOVAL OF PANCREAS N/A 10/26/2022 LAPAROSCOPIC PANCREATECTOMY DISTAL SUBTOTAL performed by Jordan Howard MD at OR [facility] US ABDOMEN DOPPLER LIMITED 06/21/2019 mild hepatomegaly [...] Types: Cigarettes Quit date: 10/2022 Years since quittin.6 Smokeless tobacco: Former Vaping Use Vaping Use: [...] tablets every 6 hours. 30 Tablet 0 Current Facility-Administered Medications Medication Dose Route Frequency Provider Last Rate Last Admin Fluorouracil (5-Fu) 6,100 mg in NSS 230 mL infusion 6,100 mg Intravenous Continuous Teto Torrez MD Facility-Administered Medications Ordered in Other Visits Medication Dose Route Frequency Provider Last Rate Last Admin [START ON 07/05/2023] Fluorouracil (5-Fu) 6,100 mg for Home Infusion 2,400 mg/m2 (Treatment Plan Recorded) Intravenous Once Teto Torrez MD REVIEW OF SYSTEMS: See HPI - otherwise negative OBJECTIVE: BP 146/82 (BP Site: Left Arm, BP Position: Sitting, BP Cuff Size: Large) | Pulse 119 | Temp 37.1 C (98.7 F) (Tympanic) | Resp 16 | Wt 118 kg (260 lb 3.2 oz) | SpO2 94% | BMI 32.52 kg/m | BSA 2.5 m PHYSICAL EXAM: ECOG: Performance Status 1 [...] Grossly intact LABS: Blood workup done on 07/04/2023: -WBC 4100, H&H of 11.6/36.6, Plate[place] count of 465545 -BUN/Creat: 18/0.7, Calcium 9.6, normal liver function test -magnesium level --> 1.6 CT scan of [...] the abdomen pelvis done on 07/02/2023: (at [facility]). 1. No significant change since prior CT of June 18, 2023. Stable pancreatic tail mass and multiple hepatic metastases. No new hepatic lesions. 2. No bowel obstruction. No bowel wall thickening. Normal appendix. 3. Stable splenomegaly. Redemonstration of splenic vein occlusion with collaterals, unchanged. IMPRESSION/PLAN: Pancreatic tail adenocarcinoma with liver metastasis Encounter for chemotherapy Hypomagnesemia I reviewed with him and his regarding the recent the [facility] CT scan findings of the abdomen, reviewed the blood workup done yesterday, so far he is received 11 cycles of modified FOLFIRINOX chemotherapy, overall stable findings noted , then we discontinued oxaliplatin because of neuropathy symptoms Currently he is receiving 5-Fluorouracil, leucovorin irinotecan combination Reviewed blood workup done yesterday, stable blood workup noted Reviewed imaging studies done at [facility] few days back, overall stable findings noted. He does come the right upper quadrant pain, he will continue take oxycodone and acetaminophen combination for the symptomatic treatment He is having PET-CT scan in about 2 days Will disconnect 5-Fluorouracil pump around 10:00 a.m. on 07/07/2022 and then he will go for the PET-CT scan afterwards. Planning to see him in [address] Teto Torrez Hem/Onc (This note was completed using the dictation program Fluency Direct. As such, there may be misspellings word substitutions, or other variations that should not change the essence of the clinical content of this encounter note. If there is need for further clarification, please direct questions to the provider listed above.) documented in this encounter Nursing Notes * Beena Hu CMA - 07/05/2023 10:55 AM EST Patient identifed by name and birthdate Do you have any concerns about pain management for today's visit? Yes. Patient instructed to discuss pain concerns with provider during the visit today Living Will or Advance Directive for Health Care as noted on the problem list. [facility] is a way you can talk to your provider on line through e-mail. Would you like to sign up? I can activate it for you? ALREADY ACTIVE Filed Vitals: 07/05/23 1054 BP: 146/82 Pulse: 119 Resp: 16 Temp: 37.1 C (98.7 F) TempSrc: Tympanic SpO2: 94% Weight: 118 kg (260 lb 3.2 oz) Patient was instructed to not get [...] 07/07/2023 10:00 AM EST Immunization/Injection Hematology/Oncology Treatment, [place] [address] [facility] [place] [address] Nurse, Med 200 [facility] [address] 07/07/2023 11:45 AM EST Imaging Radiology, [place] [address] [place] [address] 07/17/2023 9:00 AM EST Laboratory Laboratory, [facility] [place] [address] [place] [id number] Patricio Cardoza [address] [place] [address] 07/18/2023 9:15 AM EST Office Visit Hematology/Oncology [facility] [address] [place] [address] Teto Torrez MD [address] [place] [address] 07/18/2023 9:45 AM EST Hem/Onc Treatment Hematology/Oncology Treatment, [place] [address] [place] [address] Park, Chair 10 Hem Onc [place] [address] [place] [address] 08/09/2023 10:30 AM EST Office Visit Orthopaedics [facility] [address] [facility] [place] [address] Judy Clay MD 132 [facility] [place] [address] 08/25/2023 9:45 AM EST Telemedicine Urology Luli Sanchez [address] [address] [place] [address] Adolfo Key MD [address] [place] [address] 7, Telemed [facility] Urology Ex Rm [address] [place] [address] 11/15/2023 11:30 AM EDT Office Visit Urology, [facility] [address] [place] [address] Adolfo Key MD [address] [place] [address] Health Maintenance Due Date Last Done Comments [...] this encounter Medical Devices Implanted Type Area Quality Technician Device Identifier Shelf Expiration Date Model / Serial / Lot Port Implant W/8f Poly Cath - [id number] Implanted:Qty : 1 on 12/01/2022 by Brad Cerda DO at OR [facility] Right: Chest CR BARD : PERIPHERAL VASCULAR [id number] 02/24/2024 [id number] / / [id number] System Urolift - [id number] Implanted:Qty : 6 on 05/31/2023 by Adolfo Key MD at OR [facility] [employer] 09/01/2023 [id number] / / [id number] Description:prostate documented as of this encounter Visit [...] due to patient's condition Care Teams Supervisor Dock Relationship Specialty Start Date End Date Ray Royal MD [address] [place] [address] [place] [address] PCP - General Family Medicine 10/22/18 documented as of this encounter"
--- OUTSIDE RECORDS SUMMARY | 2023-09-20 05:57 | External Medical Summary | Summary of Care ---
Author Name Unknown Organization [facility] Address [address] [place] [address] Phone [phone] Care Team Providers Care Geothermal Sheet Metal Worker Name Role Phone Ray Royal MD Primary Care Provider [phone] Encounter Details Date Type Department Care Team (Late st Contact Info) Description 06/01/2023 Orders Only Hematology/Oncology Tisha Driver [place] 200 [facility] [place] [address] Teto Torrez MD [address] [place] [address] Allergies No known active allergiesdocumented as of this encounter (statuses as of 07/03/2023) Medications Medication Sig Dispensed Refills Start Date [...] as of this encounter (statuses as of 07/03/2023) Active Problems Problem Noted Date Diagnosed Date [...] as of this encounter (statuses as of 07/03/2023) Immunizations Name Administration Dates Next Due COVID-19 mRNA, LNP-s, No Pre serve, 2-Dose Series (Scratch Hard) 02/23/2021,02/02/2021 HEP A - Hepatitis A (Adult > 18 yrs) 09/21/2020, 02/10/2020 Hepatitis B, 20+ yrs 09/21/2020,03/23/2020,02/09 Pneumococcal Conjugate Vacci ne, 20-valent ([id number]) 10/26/2022(Deferred: Patient Refused) Pneumococcal Polysaccharide PPV23 (Pneumovax) [...] Care Team (Late st Contact Info) Description 07/03/2023 1:00 PM EST Office Visit Palliative Medicine, [facility] [address] [facility] 5th [place] [address] Shante Prado MD [address] [facility] [place] [address] 07/04/2023 10:30 AM EST Laboratory Laboratory, [facility] [address] [facility] [place] [phone] CardozaPatricio khan [facility] [address] [facility] [place] [address] 07/05/2023 11:00 AM EST Office Visit Hematology/Oncology [place] [address] [place] [address] Teto Torrez MD [address] [place] [address] 07/05/2023 11:30 AM EST Hem/Onc Treatment Hematology/Oncology Treatment, [place] [address] [place], [place] [address] Neisha, Chair 2 Hem Onc [place] [address] [place] [address] 07/07/2023 11:45 AM EST Imaging Radiology, [address] [place] [id number] 08/09/2023 10:30 AM EST Office Visit Orthopaedics [facility] [address] [place] [address] Judy Clay MD 132 [facility] [place] [address] 08/25/2023 9:45 AM EST Telemedicine Urology Luli Sanchez [address] [place] [address] Adolfo Key MD [address] [place] [address] 7, Telemed [facility] Urology Ex [address] [place] [address] 11/15/2023 11:30 AM EDT Office Visit Urology, [facility] [address] [place] [address] Adolfo Key MD [address] [place] [address] [place] [address] Health Maintenance Due Date Last Done Comments [...] this encounter Medical Devices Implanted Type Area Pyrometer Temperature Regulator Device Identifier Shelf Expiration Date Model / Serial / Lot Port Implant W/8f Poly Cath - [id number] Implanted:Qty : 1 on 12/01/2022 by Brad Cerda, DO at OR [facility] Right: Chest CR BARD : PERIPHERAL VASCULAR [id number] 02/24/2024 [id number] / / [id number] System Urolift - [id number] Implanted:Qty : 6 on 05/31/2023 by Adolfo Key MD at OR [facility] [employer] 09/01/2023 [id number] / / [id number] Description:prostate documented as of this encounter Advance [...] Discussed due to patient's condition Care Teams Geothermal Sheet Metal Worker Relationship Specialty Start Date End Date Ray Royal MD [address] [place] [address] [place] [address] PCP - General Family Medicine 10/22/18 documented as of this encounter
[2023-09-20] MEDS: PANTOprazole 40 MG TAB PO SCH (06:03)
[2023-09-20 07:16] LABS: INR 1.8 (0.9-1.1); Prothrombin Time 19.1 Seconds (9.0-12.0)
--- NOTE | 2023-09-20 07:58 | Gastrointestinal Consultation ---
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 The diarrhea is resolved w discontinuing the lactulose. Abd pain likely also secondary to the pancreas cancer. Plan Recommend against restarting lactulose. CT w IV did not show gallbladder or bile duct abnormalities, thus increasing LFTs most likely related burden of metastatic liver dx vs obstruction. However, it is reasonable to obtain MRI (if venous access port is MRI compatible). Further recommendations to follow after ascitic fluid cytology and culture obtained and MRCP if obtainable. Supervising Physician Co-Signing Physician Notes Attg add: I interviewed and examined pt, reviewed chart and labs. Pt with abd bloating, diarrhea shortly after starting lactulose for "jerky tremors" and NH4 level in the 30s. He was admitted for low BP, which he attributes to decreased PO intake due to bloating. Labs show stable AP but new bili, CT without pooja dil/PVT but new mod ascites. Tap ascites, check SAAG, r/o SBP Doubt biliary obstruction - no pooja dil on CT, and mass is in tail rather than HOP. Check MRCP, no need EUS/ERCP at this time. Can hold lactulose. History of Present Illness Reason for Consultation: ascites, elevated lft Requesting Physician: Dr. Boudreaux Attending Physician: Edward Petty MD History of Present Illness Mr. Brad Holm is a 63 yr old male pt of Dr. Royal w a hx of hemochromatosis (Heterozygous for C282Y), portal HTN w esophageal varices, C-diff (Mar 2023), pancreatic tail adenocarcinoma which was dx'ed in Jul 2022 w mets to liver at that time, chemo managed by Dr. Teto Torrez. Recent Chemo: gemcitabine, weekly x2 followed by 1 week off. Increasing neuropathy and tremors thus PET and MRI of the brain are pending. He has developed ascites and increasing LFTs: T Bili 3.3 (1.1 a month ago), AST 66, ALT 28, ALk Phos 208. Hb was 11.8 on arrival -> 8.8 today. CTAP w IV with new ascites and increase liver mets but w/o gallbladder, bile duct abnormalities. Paracentesis this morning. 1.5 L removed. Fluid for culture and cytology are pending The pt tells us that he began with diarrhea, diffuse abd pain and enlarging abd girth about 2 weeks ago. Around that time, he was found to have a high ammonia level and was started on Lactulose but he did not have any confusion. He was passing about 6 loose BMs/day while on the Lactulose and since it was stopped on admission, has not had further diarrhea and his stool studies were negative for GI pathogens for C. difficile. He has not had any blood in his bowel movements or black tarry bowel movements and has not had emesis. Allergies Allergy/AdvReac Type Severity Reaction Status Date / Time No Known Allergies Allergy Verified 09/19/23 18:36 Home Medications Medication Instructions Recorded Confirmed Type allopurinol 300 mg tablet 300 mg PO QAM 05/02/22 09/19/23 History diltiazem HCl 120 mg capsule,24 120 mg PO DAILY 05/02/22 09/19/23 History hr,extended release lisinopril 10 mg tablet 10 mg PO DAILY 05/02/22 09/19/23 History finasteride 5 mg tablet 5 mg PO QAM 08/10/22 09/19/23 History omeprazole 20 mg capsule,delayed 20 mg PO DAILYBB 08/10/22 09/19/23 History release magnesium oxide 400 mg PO QAM 04/04/23 09/19/23 History ondansetron HCl 8 mg tablet 8 mg PO Q8 PRN Nausea 04/04/23 09/19/23 History potassium chloride 10 mEq 10 meq PO AMHS 04/04/23 09/19/23 History tablet,extended release silodosin 8 mg capsule 8 mg PO QAM 04/04/23 09/19/23 History baclofen 10 mg tablet 10 mg PO BID 08/18/23 09/19/23 History polyethylene glycol 3350 17 gram 17 g PO DAILY PRN Constipation 08/18/23 09/19/23 History oral powder packet (Miralax) sennosides 8.6 mg tablet (senna) 17.2 mg PO HS 08/18/23 09/19/23 History aspirin 81 mg tablet 81 mg PO QAM 09/19/23 09/19/23 History furosemide 20 mg tablet 20 mg PO QAM 09/19/23 09/19/23 History lactulose 10 gram/15 mL oral 20 g PO QAM 09/19/23 09/19/23 History solution Patient History Medical History GERD (gastroesophageal reflux disease) Gout 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 Social History Smoking Status: Never smoker Tobacco Type: Cigarettes Second Hand Exposure: No; Hx Alcohol Use: No Hx Substance Use: No Preferred Language: Tajik Communication Ability: Effective Car Ferry Master Required: No Beliefs That Will Affect Care: Shinto Shinto Beliefs: Restoration marital status: Current Living Situation: Significant Other Other Information That Helps Us Care for You: No Feels Safe at Home: Yes Safety Concerns: Feels Safe At This Time Assistive Devices: None Review of Systems 2 Review of Systems: ROS: Gen: + Weakness, No fevers Eyes: No eye redness, or pain, no recent vision changes Resp: No SOB, no cough Cardio: No palpitations/irregular beats, no chest pain GI: As per HPI, otherwise (-) : Denies pain on urination Skin: No jaundice, itching or new rashes Neuro: + tremor; bilat lower leg numbness/pain Physical Exam 2 Constitutional: AAO, uncomfortable but NAD, hemodynamically stable. Eyes: PERRL, conjunctivae normal, anicteric sclerae ENMT: external ear and nose normal, oropharynx normal Neck: trachea midline, no thyromegaly Respiratory: normal respiratory effort, lungs clear to auscultation Cardiovascular: RRR, no murmurs; + 1+ bilat lower non pitting edema Gastrointestinal (Abdomen): Abd is soft, mildly distended. BS are present/normal active throughout. Moderate tenderness over the entire abdomen, worse in the epigastric area. Musculoskeletal: No red/swollen joints Skin: No jaundice. Bilat lower legs w dull/mild erythema Neurologic: AAO, no confusion, minimal tremor of the hands, no asterix. Psychiatric: AAO, NAD, somewhat flat affect, somewhat poor eye contact otherwise normal. Lymphatic: no cervical or axillary lymphadenopathy Results & Data Vital Signs (Past 12 Hours) Vital Signs Temp Pulse Pulse Resp BP BP Pulse Ox 09/20/23 07:15 37.0 C 96 H 22 117/65 99 03/27/24 04:00 36.8 C 88 16 107/54 L 97 09/20/23 00:00 94 H 09/19/23 22:30 36.8 C 94 H 20 123/71 98 09/19/23 22:30 36.8 C 94 H 20 123/71 98 09/19/23 22:00 92 H 23 121/72 97 09/19/23 21:11 93 H 09/19/23 21:00 94 H 20 122/77 96 09/19/23 20:00 95 H 24 133/78 98 O2 Del Method 09/20/23 07:15 Room Air 09/20/23 04:00 Room Air 09/20/23 00:00 09/19/23 22:30 Room Air 09/19/23 22:30 Room Air 09/19/23 22:00 Room Air 09/19/23 21:11 09/19/23 21:00 Room Air 09/19/23 20:00 Room Air Laboratory Results T Bili 3.3, AST 66, ALT 28, Alk Phos 208. 09/19/23 16:30 09/19/23 16:30 Diagnostic Findings CTAP w IV 09/20/23: 1. Moderate ascites is new from prior exam. No acute abnormalities to explain diarrhea. 2. Redemonstration of pancreatic mass. Increased size and number of hepatic and keeley metastases. 3. Stable splenomegaly and splenic vein occlusion with collateral formation.
[2023-09-20 08:08] LABS: Adenovirus F 40/41 PCR Not Detected (NotDetected); Astrovirus PCR Not Detected (NotDetected); Campylobacter PCR Not Detected (NotDetected); Cryptosporidium PCR Not Detected (NotDetected); Cyclospora cayetanensis PCR Not Detected (NotDetected); Entamoeba histolytica PCR Not Detected (NotDetected); Enteroaggregative E.coli(EAEC) Not Detected (NotDetected); Enteropathogenic E.coli (EPEC) Not Detected (NotDetected); Enterotoxigenic E.coli (ETEC) Not Detected (NotDetected); Giardia lamblia PCR Not Detected (NotDetected); Norovirus GI/GII PCR Not Detected (NotDetected); Plesiomonas shigelloides PCR Not Detected (NotDetected); Rotavirus A PCR Not Detected (NotDetected); Salmonella PCR Not Detected (NotDetected); Sapovirus PCR Not Detected (NotDetected); Shiga-like Toxin E.coli (STEC) Not Detected (NotDetected); Shigella/Enteroinvasive E.coli Not Detected (NotDetected); Vibrio cholerae PCR Not Detected (NotDetected); Vibrio species PCR Not Detected (NotDetected); Yersinia enterocolitica PCR Not Detected (NotDetected)
[2023-09-20] MEDS: allopurinoL 300 MG TAB PO SCH (08:58)
[2023-09-20] MEDS: MAGNESIUM OXIDE 400 MG TAB PO SCH (08:58)
[2023-09-20] MEDS: dilTIAZem HCL 120 MG CAPCR PO SCH (08:58)
[2023-09-20] MEDS: ASPIRIN 81 MG ECTAB PO SCH (08:59)
[2023-09-20] MEDS: TAMSULOSIN HCL 0.4 MG CAP PO SCH (08:59)
[2023-09-20] MEDS: FINASTERIDE 5 MG TAB PO SCH (08:59)
[2023-09-20] MEDS: oxyCODONE HCL IR 5 MG TAB (IMMEDIATE RELEASE) PO PRN (09:16)
[2023-09-20 09:19] LABS: Albumin Peritoneal Fluid < 1.5 gm/dl; Amylase Peritoneal Fluid < 10 U/L
[2023-09-20 09:25] LABS: Glucose Peritoneal Fluid 135 mg/dl; LDH Peritoneal Fluid 83 U/L; Lipase Peritoneal Fluid 7 U/L; Total Protein Peritoneal Fluid < 3.0 gm/dl
[2023-09-20] MEDS: HYDROmorphone INJ 0.5 MG/0.5 ML SYR IV PRN (09:32)
[2023-09-20 10:35] LABS: Appearance Peritoneal Fluid Clear; Color Peritoneal Fluid Yellow; Lymphocytes, Fluid 44 %; Mono,Macrophage,Mesothelial 37 %; Neutrophils, Fluid 19 %; RBC Peritoneal Fluid Auto < 2000 /uL; WBC Peritoneal Fluid Auto 89 /ul (0-300)
--- OUTSIDE RECORDS SUMMARY | 2023-09-20 12:50 | External Medical Summary | Summary of Care ---
Author Name Unknown Organization [facility] Address [address] [place] [address] Phone [phone] Care Team Providers Care Motor Operator Name Role Phone Ray Royal MD Primary Care Provider [phone] Reason for Visit * Reason Onset Date Comments Encounter Created in Error 09/19/2023 Encounter Details Date Type Department Care Team (Late st Contact Info) Description 09/19/2023 Telephone Family Medicine [address] [id number] Ray Royal MD [address] [place], [place] [address] [id number] Encounter Created in Error Allergies No known active allergiesdocumented as of this encounter (statuses as of 09/19/2023) Medications Medication Sig Dispensed Refills Start Date [...] as of this encounter (statuses as of 09/19/2023) Active Problems Problem Noted Date Diagnosed Date [...] as of this encounter (statuses as of 09/19/2023) Immunizations Name Administration Dates Next Due COVID-19 mRNA, LNP-s, No Pre serve, 2-Dose Series (Kandu) 02/23/2021,02/02/2021 HEP A - Hepatitis A (Adult > 18 yrs) 09/21/2020, 02/10/2020 Hepatitis B, 20+ yrs 09/21/2020,03/23/2020,02/09 Pneumococcal Conjugate Vacci ne, 20-valent ([id number]) 10/26/2022(Deferred: Patient Refused) Pneumococcal Polysaccharide PPV23 (Pneumovax) [...] Care Team (Late st Contact Info) Description 09/27/2023 12:50 PM EDT Laboratory Laboratory [facility] [place] [address] [place] [phone] Neisha Lab Mary Jory [address] [place], [place] [address] 09/27/2023 2:00 PM EDT Hem/Onc Treatment Hematology/Oncology Treatment, [place] [address] [place], [place] [phone] Neisha, Chair 1 Hem Onc [facility] [address] [place] [address] 10/04/2023 1:00 PM EDT Laboratory Laboratory [facility] Neisha [place] [address] [place] [phone] Neisha Lab Mary [place]ory [address] [facility] [place], [place] [address] 10/04/2023 2:00 PM EDT Hem/Onc Treatment Hematology/Oncology Treatment, [place] 200 [facility], [place] [phone] Neisha, Chair 10 Hem Onc [facility] 200 [facility] [place] [address] 10/04/2023 2:00 PM EDT Office Visit Palliative Medicine [facility] [place] 200 [facility], [place] [phone] Shante Prado [facility] [place] [id number] 10/10/2023 12:45 PM EDT Imaging Radiology [address], [place] [facility] [place] [address] 10/19/2023 10:30 AM EDT Laboratory Laboratory [facility] [place] [address] [place] [phone] Neisha, Lab [place] [facility] [place] [address] 10/19/2023 11:00 AM EDT Office Visit Hematology/Oncology [facility] [place] [address] [place] [phone] Rachel Marina CRNP 400 [facility] [place] [address] 10/19/2023 11:30 AM EDT [facility] 200 [facility], [place] [phone] Neisha, Chair 11 Hem Onc [place] [address] [place] [address] 10/26/2023 12:50 PM EDT Laboratory Laboratory [facility] Neisha [place] [address] [place] [phone] Neisha, Lab [place] [place] [address] 10/26/2023 2:00 PM EDT Hem/Onc Treatment Hematology/Oncology Treatment, [place] [address] [place] [phone] Neisha, Chair 9 Hem Onc Scene 200 [facility] [place] [address] 11/15/2023 11:30 AM EDT Office Visit Urology, [facility] 132 [facility] [place] [address] Adolfo Key MD [address] [place] [...] this encounter Medical Devices Implanted Type Area Clinical Informatics Director Device Identifier Shelf Expiration Date Model / Serial / Lot Port Implant W/8f Poly Cath - [id number] Implanted:Qty : 1 on 12/01/2022 by Brad Cerda DO at OR [facility] Right: Chest CR BARD : PERIPHERAL VASCULAR [id number] 02/24/2024 [id number] / / [id number] System Urolift - [id number] Implanted:Qty : 6 on 05/31/2023 by Adolfo Key MD at OR [facility] [employer] 09/01/2023 [id number] / / [id number] Description:prostate documented as of this encounter Advance Directives Documents on File Type Date Recorded Patient Validation Engineer Expl anation POLST 07/13/2023 4:08 PM [...] Discussed due to patient's condition Care Teams Motor Operator Relationship Specialty Start Date End Date Ray Royal MD [address] [place] [address] [place] [id number] PCP - General Family Medicine 10/22/18 documented as of this encounter
--- NOTE | 2023-09-20 13:12 | Ultrasound Report ---
ULTRASOUND-GUIDED PARACENTESIS CLINICAL HISTORY: Ascites PROCEDURE: Procedure and risks were explained. Informed consent was obtained. A final timeout was com pleted. The abdomen was prepped and draped in sterile fashion. 1% buffered lidocaine was utilized for skin anesthesia. Utilizing ultrasound guidance, a 5 Telugu safety centesis catheter was advanced into the left lower q uadrant pocket of ascites. Ultrasound images were obtained. A total of 1.6 L of ascites fluid was rem popeye with 1 L sent to lab for analysis. The catheter was removed and Band-Aid applied. The patient to lerated the procedure well. Vital signs will be monitored postprocedure. IMPRESSION: Ultrasound-guided paracentesis as above. Performed, dictated, and signed by Dusty Acuna PA-C; to be co-signed by Dr. Reggie Ceballos. Electronically signed by: Reggie Ceballos M.D. 09/20/2023 2:19 PM
--- NOTE | 2023-09-20 14:09 | Hospitalist Progress Note ---
Date of Service September 20, 2023 Assessment & Plan (1) Sepsis: Plan: 63-year-old male with past med significant for adenocarcinoma of pancreas with mets to the liver, idiopathic chronic gout, hemochromatosis, portal hypertension with esophageal varices, hypertension, venous stasis dermatitis of both lower extremities, ureteral stricture, osteoarthritis, who presents with diarrhea for 2 weeks and also abdominal distention and bloating and discomfort. Metastatic pancreatic cancer Elevated total bilirubin Moderate ascites and splenic vein occlusion on CT scan\ History of pancreatic tail adenocarcinoma with liver metastasis. Status post 11 cycles of modified FOLFIRINOX chemotherapy PET/CT done on June 2023 showed overall disease progression in the liver. Currently on single agent gemcitabine weekly x 2 followed by 1 week off. Last dose was September 05 Recently started on Lasix and lactulose. Total bilirubin elevated to 3.3 with direct bilirubin of 2.2. Status post paracentesis done on September 20, 2023. Paracentesis fluid analysis: WBC of 89 SAAG 1.1 g/dL Cytology pending Stool for C. difficile negative GI PCR panel negative Evaluated by GI; doubt biliary obstruction. Recommended to follow-up on ascitic fluid cytology and MRCP. Possible sepsis. Elevated lactic acid on admission On cefepime and flagyl SBP ruled out Blood culture pending Continue on empiric antibiotic for the time being Pancytopenia, likely secondary to chemotherapy- Continue to monitor CBC daily. 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 difficile colitisC. difficile rule out. History of gout Allopurinol History of hypertension Will hold lisinopril, Lasix Continue diltiazem with holding parameters BPH On Proscar GERD On omeprazole DVT prophylaxis SCDs as patient has thrombocytopenia Time spent evaluating patient, direct bedside care, chart review, placing orders, interpretation of diagnostic studies, discussion with consultants, patient, and family members, as well as other required patient management activities is 60-minutes Please note the above document was generated using voice recognition software. It may contain grammatical, syntax or spelling errors. Any formal questions or concerns about the content, text or information contained within the body of this dictation should be directly addressed to the provider for clarification Admission and Anticipated Discharge Date Admission Date: September 19, 2023 Subjective Patient seen and examined at bedside. He reports some discomfort at the site of the paracentesis. No other significant events. Review of Systems Review of Systems: All systems reviewed & are unremarkable except as noted in Subjective Physical Exam Physical Exam: Constitutional: Awake, alert oriented x 3; not in distress. Respiratory: Bilateral vesicular breath sound Cardiovascular: RRR, no murmur, no edema Vessels: no JVD or carotid bruit Chest: normal inspection of chest Abdomen: Slightly distended, nontender. Bandaged over paracentesis site Musculoskeletal: no cyanosis or clubbing, extremities motor strength 5/5 Skin: no rashes, warm and dry normal turgor Neurologic: PERRL, EOMI, accommodation nl, no face palsy, no dysarthria CN's II- XI intact bilaterally and moves all extremities Psychiatric: A+Ox3, euthymic affect Results & Data Results & Data Vital Signs (Past 12 Hours) Vital Signs Temp Pulse Pulse Resp BP BP Pulse Ox 09/20/23 11:00 105 H 24 09/20/23 10:57 37.0 C 106 H 23 136/78 98 09/20/23 10:53 107 H 27 H 09/20/23 10:53 136/78 09/20/23 10:34 108 H 26 H 09/20/23 08:00 113 H 09/20/23 07:15 37.0 C 96 H 22 117/65 99 09/20/23 07:00 89 24 97 09/20/23 06:00 90 23 98 09/20/23 05:00 89 22 97 09/20/23 04:00 107/54 L 09/20/23 04:00 89 24 96 09/20/23 04:00 36.8 C 88 16 107/54 L 97 09/20/23 03:00 91 H 21 98 09/20/23 02:00 87 24 97 O2 Del Method 09/20/23 11:00 09/20/23 10:57 Room Air 09/20/23 10:53 09/20/23 10:53 09/20/23 10:34 09/20/23 08:00 09/20/23 07:15 Room Air 09/20/23 07:00 09/20/23 06:00 09/20/23 05:00 09/20/23 04:00 09/20/23 04:00 09/20/23 04:00 Room Air 09/20/23 03:00 09/20/23 02:00
--- NOTE | 2023-09-20 16:00 | Electrocardiogram Report ---
Test Reason : Blood Pressure : / mmHG Vent. Rate : 123 BPM Atrial Rate : 123 BPM P-R Int : 124 ms QRS Dur : 082 ms QT Int : 314 ms P-R-T Axes : 042 041 043 degrees QTc Int : 449 ms Sinus tachycardia Low voltage QRS Borderline ECG When compared with ECG of 18-AUG-2023 18:35, No significant change was found Confirmed by Meliton Lomeli ([id number]) on 09/20/2023 4:00:04 PM Referred By: REFERRED SELF Confirmed By:Meliton Lomeli
[2023-09-20] MEDS ORDERED: VANCOMYCIN HCL 1,750 MG in SODIUM CHLORIDE 0.9% 500 ML IV ONE (17:08)
[2023-09-20] MEDS ORDERED: VANCOMYCIN CONSULT ACTIVE PRN (17:08)
[2023-09-20] MEDS: VANCOMYCIN HCL 2,000 MG in SODIUM CHLORIDE 0.9% 500 ML IV ONE (17:27)
--- NOTE | 2023-09-20 21:14 | Magnetic Resonance Report ---
MR MRCP CLINICAL HISTORY: elevated LFTs, verify no bile duct obstruction TECHNIQUE: Multiplanar multisequence MR images of the abdomen were obtained, as per MRCP protocol. . COMPARISON: Comparison is made to CT abdomen pelvis 09/19/2023 FINDINGS: Lower chest: No acute abnormality Liver: Innumerable hepatic lesions are seen compatible with hepatic metastases. Gallbladder and biliary tree: No calcified gallstones. Normal caliber wall. No intra- or extrahepatic biliary ductal dilation. Pancreas: Pancreatic tail lesion is seen compatible with metastatic disease. Spleen: Spleen measures 21 cm in craniocaudal dimension. Adrenals: Unremarkable. Kidneys and ureters: Unremarkable. Bowel: Unremarkable. Lymph nodes Retroperitoneal: Retroperitoneal nodes are seen measuring up to 11 mm. Mesenteric: Unremarkable. Peritoneum: Redemonstration of moderate ascites. Vessels: Unremarkable. Abdominal wall: Unremarkable. Bones: Unremarkable. IMPRESSION: 1. No acute abnormalities and in particular no biliary ductal dilation. 2. Redemonstration of hepatic and keeley metastases. 3. Stable splenomegaly and splenic vein occlusion with collateral formation. ACT 112: Negative or not required by law. Electronically signed by: Marquis Pierson M.D. 09/20/2023 9:12 PM
[2023-09-21] MEDS: VANCOMYCIN HCL 1,000 MG in SODIUM CHLORIDE 0.9% 250 ML IV SCH (01:17)
[2023-09-21] MEDS: CEFEPIME 2,000 MG in SYRINGE 0 ML IV SCH (01:17)
[2023-09-21 07:11] LABS: Albumin Level 2.2 gm/dl (3.4-5.0); BUN Creatinine Ratio 38.3 (10-20); Bilirubin,Total 2.4 mg/dl (0.2-1.0); Calcium 7.3 mg/dl (8.6-10.3); Creatinine Clr Calc Pharmacy 178.9 ml/min; Est GFR (African American) 125.8 ml/min; Est GFR (Non-African American) 108.5 ml/min; Globulin 2.1 gm/dl (2.5-4.0); Potassium 4.4 mmol/L (3.5-5.1); Total Protein 4.3 gm/dl (6.0-8.3)
[2023-09-21 07:14] LABS: Hematocrit (blood only) 23.8 % (42.0-52.0); Hemoglobin 7.6 g/dl (14.0-18.0); Mean Corpuscular Hemoglobin 31.4 pg (25.0-34.0); Mean Corpuscular Hgb Conc 31.9 g/dL (32.0-36.0); Mean Corpuscular Volume 98.3 fL (80.0-100.0); Nucleated RBC # (auto) 0.09 K/uL (0.00-0.12); Nucleated RBC % (auto) 2.5 %; Platelet Count 34 K/uL (130-400); RDW Coefficient of Variation 20.6 % (11.5-14.5); RDW Standard Deviation 73.2 fL (36.4-46.3); Red Blood Count 2.42 M/uL (4.70-6.10)
[2023-09-21 07:38] LABS: Anisocytosis Present; Basophils # (auto) 0.01 K/uL (0.00-0.20); Basophils % (auto) 0.3 %; Eosinophils # (auto) 0.05 K/uL (0.00-0.50); Eosinophils % (auto) 1.4 %; Immature Granulocytes % (auto) 5.6 %; Lymphocytes # (auto) 0.63 K/uL (1.20-3.40); Lymphocytes % (auto) 17.5 %; Monocytes # (auto) 0.44 K/uL (0.11-0.59); Monocytes % (auto) 12.2 %; Neutrophils # (auto) 2.27 K/uL (1.40-6.50); Ovalocytes 1+; Poikilocytosis Present; Polychromasia 1+; Tear Drop Cells 1+
--- NOTE | 2023-09-21 08:00 | Pharmacy Report ---
Pharmacy PK ABX Note - Date of Service September 21, 2023 - Assessment and Plan Assessment 63 year old M receiving vancomycin and cefepime for empiric sepsis coverage. Immunocompromised at baseline (metastatic pancreatic cancer on chemo). Blood and peritoneal fluid cultures pending. Renal function at baseline. Day #2 of antimicrobial therapy. Plan Vancomycin * Loading dose: 2000 mg IV x 1 * Maintenance dose: 1250 mg IV every 8 hours * Regimen is predicted to achieve target AUC/JOSEE of 400-600 mg/L.hr * Trough level ordered for: 09/21 AM Pharmacy will continue to follow and will adjust dose/frequency as necessary. Thank you. Pharmacy has transitioned to AUC monitoring for vancomycin. AUC/JOSEE is the preferred PK/PD target and is associated with decreased risk of nephrotoxicity compared to traditional trough targets.
[2023-09-21] MEDS: VANCOMYCIN HCL 1,250 MG in SODIUM CHLORIDE 0.9% 250 ML IV SCH (09:13)
--- NOTE | 2023-09-21 10:56 | Gastroenterology Progress Note ---
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 Diarrhea resolving w discontinuation of lactulose, would not restart. GI will sign off. Please recall w questions. Admission and Anticipated Discharge Date Admission Date: September 19, 2023 Supervising Physician Co-Signing Physician Notes Attg add: Pt without complaint. No evidence HE on exam. Ascites with low SAAG although albumin in fluid just reported as < 1.5, no SBP - Abx per primary service - No need lactulose, will hold. - Regarding ? low SAAG ascites - Although SAAG is low, difficult to calculate as albumin is not quantified. It is possible that he has malignant ascites or portal HTN. Follow up cytology results, can continue to trial lasix 20 mg and aldactone 50 mg once daily and low NA diet, repeat tap PRN. Will sign off, please reconsult as needed. Subjective 63 yr male w pancreatic adenocarcinoma w mets to liver. GI consulted for el LFTs: T Bili 1.2.->3.3 ->2.4 AST 41->66->47Alk Phos 148-> 208-> 193. AST has been normal. He also has pancytopenia/anemia: 8.8->7.6. Platelets 34 today. BUN normal. Is on chemo and has not had gross GI bleeding. He also has diarrhea on OP lactulose, resolved w discontinuing. Stool studies (- ). Has Ascites. Tap yesterday w/o evidence of SBP (89 WBCs, 19% neutrophils). Low SAAG (2.2-1.5 - .7) likely from metastatic dx vs portal HTN. Review of Systems 2 Review of Systems: ROS: Gen: + Weakness, No fevers Eyes: No eye redness, or pain, no recent vision changes Resp: No SOB, no cough Cardio: No palpitations/irregular beats, no chest pain GI: As per HPI, otherwise (-) : Denies pain on urination Skin: No jaundice, itching or new rashes Neuro: + tremor; bilat lower leg numbness/pain Physical Exam 2 Eyes: PERRL, conjunctivae normal, anicteric sclerae ENMT: external ear and nose normal, oropharynx normal Neck: trachea midline, no thyromegaly Respiratory: normal respiratory effort, lungs clear to auscultation Cardiovascular: RRR, no murmurs, mild bilat lower leg edema Gastrointestinal (Abdomen): Soft, diffusely tender, mild ascites, no palpable masses. Skin: bilat lower leg skin darkened (brown/red), no increased temporature Neurologic: PERRL, EOMI, accommodation nl, no face palsy, no dysarthria Psychiatric: dull affect, otherwise normal. Lymphatic: no cervical or axillary lymphadenopathy Results & Data Vital Signs (Past 12 Hours) Vital Signs Temp Pulse Pulse Resp BP Pulse Ox O2 Del Method 09/21/23 08:00 83 09/21/23 08:00 36.9 C 89 20 117/68 99 Room Air 09/21/23 07:18 Room Air 09/21/23 06:00 83 09/21/23 02:55 36.7 C 94 H 18 120/62 98 Room Air 09/20/23 23:29 36.8 C 101 H 19 120/67 98 Room Air Laboratory Results 09/21/23 05:35 09/21/23 05:35 Diagnostic Findings MRCP and CT w/o bile duct abnormalities.
[2023-09-21] MEDS: LOPERAMIDE HCL 2 MG CAP PO SCH (11:24)
--- NOTE | 2023-09-21 16:49 | Hospitalist Progress Note ---
Date of Service September 21, 2023 Assessment & Plan (1) Sepsis: Plan: 63-year-old male with past med significant for adenocarcinoma of pancreas with mets to the liver, idiopathic chronic gout, hemochromatosis, portal hypertension with esophageal varices, hypertension, venous stasis dermatitis of both lower extremities, ureteral stricture, osteoarthritis, who presents with diarrhea for 2 weeks and also abdominal distention and bloating and discomfort. Metastatic pancreatic cancer Elevated total bilirubin Moderate ascites and splenic vein occlusion on CT scan History of pancreatic tail adenocarcinoma with liver metastasis. Status post 11 cycles of modified FOLFIRINOX chemotherapy PET/CT done on June 2023 showed overall disease progression in the liver. Currently on single agent gemcitabine weekly x 2 followed by 1 week off. Last dose was September 05 Recently started on Lasix and lactulose. Total bilirubin elevated to 3.3 with direct bilirubin of 2.2. Status post paracentesis done on September 20, 2023. Paracentesis fluid analysis: WBC of 89 SAAG 1.1 g/dL Cytology-benign mesothelial cell and scattered lymphocytes; negative for malignancy Stool for C. difficile negative GI PCR panel negative Diarrhea improved with discontinuation of lactulose. Loperamide is started Possible sepsis. Elevated lactic acid on admission On cefepime and flagyl SBP ruled out Blood culture no growth to date Will discontinue antibiotics if blood cultures are negative. Pancytopenia, likely secondary to chemotherapy- Continue to monitor CBC daily. 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 difficile colitisC. difficile rule out. History of gout Allopurinol History of hypertension Will hold lisinopril, Lasix Continue diltiazem with holding parameters BPH On Proscar GERD On omeprazole DVT prophylaxis SCDs as patient has thrombocytopenia Discussed with patient's significant other at bedside. Answer questions/queries. Time spent evaluating patient, direct bedside care, chart review, placing orders, interpretation of diagnostic studies, discussion with consultants, patient, and family members, as well as other required patient management activities is 60-minutes Please note the above document was generated using voice recognition software. It may contain grammatical, syntax or spelling errors. Any formal questions or concerns about the content, text or information contained within the body of this dictation should be directly addressed to the provider for clarification Admission and Anticipated Discharge Date Admission Date: September 19, 2023 Subjective Patient seen and examined at bedside. He is comfortably lying in the bed; not in distress. He reports that diarrhea is still persistent. Review of Systems Review of Systems: All systems reviewed & are unremarkable except as noted in Subjective Physical Exam Physical Exam: Constitutional: Awake, alert oriented x 3; not in distress. Respiratory: Bilateral vesicular breath sound Cardiovascular: RRR, no murmur, no edema Vessels: no JVD or carotid bruit Chest: normal inspection of chest Abdomen: Slightly distended, nontender. Bandaged over paracentesis site Musculoskeletal: no cyanosis or clubbing, extremities motor strength 5/5 Skin: no rashes, warm and dry normal turgor Neurologic: PERRL, EOMI, accommodation nl, no face palsy, no dysarthria CN's II- XI intact bilaterally and moves all extremities Psychiatric: A+Ox3, euthymic affect Results & Data Results & Data Vital Signs (Past 12 Hours) Vital Signs Temp Pulse Pulse Resp BP Pulse Ox O2 Del Method 09/21/23 16:00 37.3 C 108 H 16 143/65 H 97 Room Air 09/21/23 14:35 112 H 09/21/23 11:00 36.7 C 90 18 111/63 97 Room Air 09/21/23 08:00 83 09/21/23 08:00 36.9 C 89 20 117/68 99 Room Air 09/21/23 07:18 Room Air 09/21/23 06:00 83
[2023-09-22 08:44] LABS: Albumin Level 2.3 gm/dl (3.4-5.0); BUN Creatinine Ratio 32.8 (10-20); Bilirubin,Total 3.3 mg/dl (0.2-1.0); Calcium 7.6 mg/dl (8.6-10.3); Creatinine Clr Calc Pharmacy 174.6 ml/min; Est GFR (African American) 124.9 ml/min; Est GFR (Non-African American) 107.8 ml/min; Globulin 2.2 gm/dl (2.5-4.0); Potassium 4.5 mmol/L (3.5-5.1); Total Protein 4.5 gm/dl (6.0-8.3)
[2023-09-22 08:46] LABS: Anisocytosis Present; Basophils # (auto) 0.01 K/uL (0.00-0.20); Basophils % (auto) 0.2 %; Echinocytes 1+; Eosinophils # (auto) 0.04 K/uL (0.00-0.50); Eosinophils % (auto) 0.7 %; Hematocrit (blood only) 25.7 % (42.0-52.0); Hemoglobin 8.3 g/dl (14.0-18.0); Immature Granulocytes # (auto) 0.25 K/uL (0.01-0.20); Immature Granulocytes % (auto) 4.5 %; Lymphocytes # (auto) 0.71 K/uL (1.20-3.40); Lymphocytes % (auto) 12.8 %; Mean Corpuscular Hemoglobin 32.4 pg (25.0-34.0); Mean Corpuscular Hgb Conc 32.3 g/dL (32.0-36.0); Mean Corpuscular Volume 100.4 fL (80.0-100.0); Monocytes # (auto) 0.52 K/uL (0.11-0.59); Monocytes % (auto) 9.4 %; Neutrophils # (auto) 4.01 K/uL (1.40-6.50); Neutrophils % (auto) 72.4 %; Nucleated RBC # (auto) 0.07 K/uL (0.00-0.12); Nucleated RBC % (auto) 1.3 %; Ovalocytes 1+; Platelet Count 47 K/uL (130-400); Platelet Estimate Decreased (Normal); Polychromasia 1+; RDW Coefficient of Variation 21.2 % (11.5-14.5); RDW Standard Deviation 73.9 fL (36.4-46.3); Red Blood Count 2.56 M/uL (4.70-6.10); Schistocytes 1+; Tear Drop Cells 2+; White Blood Count 5.54 K/ul (4.8-10.8)
--- NOTE | 2023-09-22 09:17 | Pharmacy Report ---
Pharmacy PK ABX Note - Date of Service September 22, 2023 - Assessment and Plan Assessment 63 year old M receiving vancomycin and cefepime for empiric sepsis coverage. Immunocompromised at baseline (metastatic pancreatic cancer on chemo). Blood and peritoneal fluid cultures with no growth to date. Renal function at baseline. Afebrile x 36 hours. Day #3 of antimicrobial therapy. Plan Vancomycin * Current regimen: 1250 mg IV every 8 hours * Random level obtained 09/22/23 resulted as 14.6 mcg/mL. This is predicted to achieve target AUC/JOSEE of 400-600 mg/L.hr * Predicted AUC at steady state: 486 mg/L.hr * Continue 1250 mg IV every 8 hours * Will repeat level in the next 48-72 hours if therapy is continued and/or change in patient clinical status Cefepime * 2000 mg IV every 8 hours Pharmacy will continue to follow and will adjust dose/frequency as necessary. Thank you. Pharmacy has transitioned to AUC monitoring for vancomycin. AUC/JOSEE is the preferred PK/PD target and is associated with decreased risk of nephrotoxicity compared to traditional trough targets.
[2023-09-22] MEDS: VANCOMYCIN LEVEL ONE (10:43)
--- NOTE | 2023-09-22 14:35 | Discharge Summary ---
Date of Service September 22, 2023 Admission HPI Per Admitting Provider 63-year-old male with past med significant for adenocarcinoma of pancreas with mets to the liver, idiopathic chronic gout, hemochromatosis, portal hypertension with esophageal varices, hypertension, venous stasis dermatitis of both lower extremities, ureteral stricture, osteoarthritis, who presents with diarrhea for 2 weeks and also abdominal distention and bloating and discomfort. Patient has mild abdominal discomfort. And watery diarrhea several times a day for last 2 weeks and the stools are black. No nausea/ vomiting. Appetite is down. Denies any chest pain or shortness of breath. No cough. No fevers. No headache. No blurred visions. Ambulating okay in the house. Micturating okay. Hemodynamics are okay. He also following with palliative care and recently ran out of his pain medications Past medical history. As mentioned above Past surgical history. Colonoscopy. Cystourethroscopy. EGD. EGD with endoscopic ultrasound. Laparoscopic pancreatectomy distal subtotal. Social history. Lives with girlfriend. Quit smoking in October 2022. No alcohol since October 2022. No drug use. Family history. Mother had cirrhosis. Father had heart attack in his 40s. Maternal grandfather had coronary disease. Paternal grandfather had emphysema. Coronary thrombosis. Maternal grandmother had diabetes. Paternal grandmother had coronary disease. Maternal aunt had liver cancer. Maternal uncle had liver cancer. Admission Exam Per Admitting Provider General- Not in distress Head- atraumatic Eyes- PERRL. ENT- oropharynx clear Neck- supple, no JVD. Lungs- clear to auscultation no wheezing or crackles. Heart- regular rhythm; no murmur, no gallop. Abdomen- normal bowel sounds, soft, mild diffuse discomfort, mild distension. Extremities- b/l lower extremity edema present chronic skin changes seen. Neuro- alert, oriented x 3; PERRL, no facial palsy; no dysarthria; moves extremities. Principal Diagnosis Metastatic pancreatic cancer Elevated total bilirubin Moderate ascites and splenic vein occlusion on CT scan Discharge Exam Constitutional: Awake, alert oriented x 3; not in distress. Respiratory: Bilateral vesicular breath sound Cardiovascular: RRR, no murmur, no edema Vessels: no JVD or carotid bruit Chest: normal inspection of chest Abdomen: Slightly distended, nontender. Bandaged over paracentesis site Musculoskeletal: no cyanosis or clubbing, extremities motor strength 5/5 Skin: no rashes, warm and dry normal turgor Neurologic: PERRL, EOMI, accommodation nl, no face palsy, no dysarthria CN's II- XI intact bilaterally and moves all extremities Psychiatric: A+Ox3, euthymic affect Discharge Data Allergies Allergy/AdvReac Type Severity Reaction Status Date / Time No Known Allergies Allergy Verified 09/19/23 18:36 Consultations 09/19/23 18:49 ED Decision to Admit Stat 09/20/23 08:00 Consult Gastroenterology Routine Ordered Studies 09/19/23 17:26 CT abd pelvis IV con only Stat 09/20/23 08:00 IR paracentesis abd w/img US Routine 09/20/23 12:27 MR MRCP Routine Hospital Course (1) Sepsis: 63-year-old male with past med significant for adenocarcinoma of pancreas with mets to the liver, idiopathic chronic gout, hemochromatosis, portal hypertension with esophageal varices, hypertension, venous stasis dermatitis of both lower extremities, ureteral stricture, osteoarthritis, who presents with diarrhea for 2 weeks and also abdominal distention and bloating and discomfort. Metastatic pancreatic cancer Elevated total bilirubin Moderate ascites and splenic vein occlusion on CT scan History of pancreatic tail adenocarcinoma with liver metastasis. Status post 11 cycles of modified FOLFIRINOX chemotherapy PET/CT done on June 2023 showed overall disease progression in the liver. Currently on single agent gemcitabine weekly x 2 followed by 1 week off. Last dose was September 05 Recently started on Lasix and lactulose. Total bilirubin elevated to 3.3 with direct bilirubin of 2.2. Status post paracentesis done on September 20, 2023. Paracentesis fluid analysis: WBC of 89 SAAG 1.1 g/dL Cytology-benign mesothelial cell and scattered lymphocytes; negative for malignancy Stool for C. difficile negative GI PCR panel negative At discharge, diarrhea improved with discontinuation of lactulose. Loperamide is started Discussed the finding with his oncologist Dr. Torrez Possible sepsis. Ruled out Elevated lactic acid on admission On cefepime and flagyl SBP ruled out Blood culture no growth to date Infectious workup was negative. Antibiotics were discontinued. No other medication changes were done. Please note the above document was generated using voice recognition software. It may contain grammatical, syntax or spelling errors. Any formal questions or concerns about the content, text or information contained within the body of this dictation should be directly addressed to the provider for clarification Total Time Total Time Spent Total Time Spent (In Minutes): 34 Total Time Includes: Examination of the Patient, Discharge Planning, Medication Reconciliation, Communication With Other Providers and Other Discharge Plan Discharge Items Patient Disposition: Home - Self-Care Reason For Visit: SEPSIS Discharge Diagnosis: Metastatic pancreatic cancer Diarrhea Activity: Resume your previous activity Non-emergency contact: Primary Care Provider Call non-emergency contact if: you have any medication questions and your symptoms worsen Follow-up/Referrals: Dr Ray Royal [Other] (Date & Time 09/26/2023 11:00 AM Provider Juanita Vallejo CRNP Department Family Medicine [facility] ) [facility] [Primary Care Provider] - Diet: Regular Addtl Attending Provider Instructions: You were admitted to the hospital due to abdominal distention and diarrhea. For the abdominal distention you underwent paracentesis by radiology and had 1.5 L removed. You are also evaluated by GI. They recommend stopping lactulose. You can use Imodium as needed for diarrhea. Your oncologist has been informed of regarding her hospitalization. Please follow-up with them Please follow-up with your primary care doctor. Pending Studies at Discharge: No Stand-Alone Forms: My [employer], Smoking Cessation Medications and DC Order Prescriptions: New loperamide [Imodium A-D] 2 mg capsule 2 mg PO Q6H PRN (Reason: loose stool) Qty: 30 0RF Continued allopurinol 300 mg tablet 300 mg PO QAM lisinopril 10 mg tablet 10 mg PO DAILY diltiazem HCl 120 mg capsule,extended release 24 hr 120 mg PO DAILY omeprazole 20 mg capsule,delayed release(DR/EC) 20 mg PO DAILYBB finasteride 5 mg tablet 5 mg PO QAM potassium chloride 10 mEq tablet extended release 10 meq PO [facility] Rx Instructions: not filled since 04/04/23 for 30 days magnesium oxide 400 mg magnesium Tablet 400 mg PO QAM silodosin 8 mg capsule 8 mg PO QAM ondansetron HCl 8 mg tablet 8 mg PO Q8 PRN (Reason: Nausea) sennosides [senna] 8.6 mg Tablet 17.2 mg PO HS polyethylene glycol 3350 [Miralax] 17 gram Powder In Packet 17 g PO DAILY PRN (Reason: Constipation) baclofen 10 mg tablet 10 mg PO BID aspirin 81 mg Tablet 81 mg PO QAM furosemide 20 mg tablet 20 mg PO QAM Discontinued lactulose 10 gram/15 mL solution 20 g PO QAM Discharge Orders: Discharge Order (Routine); Ordered 09/22/23 Ordered By: Edward Petty Admission Data Admit Date/Time: 09/19/23 20:39 Attending Provider: Edward Petty Admit Provider: Esau Boudreaux Primary Care Provider: [facility] Other Providers: Nette Guo; Da Marina; Apolinar Ley; Tamara Kingsley; Aleisha Vitale; Starla Murguia; Leeanna Schaeffer; Judy Alvarez; Rupesh Palacios; Naman Craig; Nitesh Hernández; Ben Moore; Tommy Caro; Nadine August; Marla Nelson; Betsy Medina; Sailaja Gutiérrez; Conrado Morales; Chris Nicole; Maco Collado; Dalia Tompkins; Carrie Salgado Jr Other Interventions: Discharge Summary Assessment (RN) Last Done: 09/22/23 11:34
== END 2023-09-22 14:40 | disposition home or self-care (01) | DRG 871 ==
LOC: ED 14:57 → 1E 20:39 → SUATTDRO 20:39 → 1E 22:10 → 2S 09-20 20:54

== ENCOUNTER 2023-09-25 18:17 | Inpatient (IN) ==
--- NOTE | 2023-09-25 18:46 | ED Triage Note ---
Date of Service September 25, 2023 Provider in Triage Author: Jess Stewart History of Present Illness This patient was briefly evaluated while in triage. An abbreviated physical exam was performed. This patient is a 63-year-old Male who presents to the ED for evaluation of abdominal pain and bloating likely from ascites. Also having swelling of his lower legs. He has a history of Stage IV liver cancer. Had his last paracentesis a couple days ago, but doesn't feel like the swelling got any better. Has some SOB with the ascites. Denies chest pain. Physical Exam GENERAL: Non-toxic and in no acute distress. HEENT: Pupils equal. Scleral icterus present. The patient is jaundiced on exam. Multiple areas of ecchymosis noted. HEART: Regular rate and rhythm. LUNGS: Clear to auscultation. No accessory muscle use. ABDOMEN: Soft, no significant tenderness to palpation. However, he does have a mild to moderate amount of ascites present. Initial orders for labs and / or imaging were placed and patient was placed in the waiting area until a bed is available. Please see further documentation for the full ED course. MDM / Impression Impression Impression: Abdominal ascites, Bilateral edema of lower extremity, SOB (shortness of breath) Impression: Abdominal ascites Qualifiers: Ascites type: other type Qualified Code(s): R18.8 - Other ascites
--- NOTE | 2023-09-25 19:12 | XRay Report ---
XR chest 1V portable CLINICAL HISTORY: Abdominal bloating TECHNIQUE: Single frontal radiograph of the chest was obtained. Comparison: Comparison is made to chest radiograph 09/19/2023 FINDINGS: A port catheter is seen. The cardiomediastinal silhouette is normal. Atelectasis at the left lung bas e. No evidence of pleural effusion or pneumothorax. IMPRESSION: No acute chest disease. ACT 112: Negative or not required by law. Electronically signed by: Marquis Pierson M.D. 09/25/2023 7:11 PM
[2023-09-25] MEDS: HEPARIN 100 UNIT/ML 5ML FLUSH FLUSH PRN (19:43)
[2023-09-25 20:33] LABS: Albumin Globulin Ratio 1.1 (0.9-2); Albumin Level 2.5 gm/dl (3.4-5.0); BUN Creatinine Ratio 31.2 (10-20); Bilirubin Direct 2.8 mg/dl (0-0.2); Bilirubin,Total 4.8 mg/dl (0.2-1.0); Calcium 7.7 mg/dl (8.6-10.3); Creatinine Clr Calc Pharmacy 70.6 ml/min; Est GFR (African American) 55.6 ml/min; Globulin 2.3 gm/dl (2.5-4.0); Magnesium 1.8 mg/dl (1.7-2.4); Potassium 4.8 mmol/L (3.5-5.1); Total Protein 4.8 gm/dl (6.0-8.3)
--- NOTE | 2023-09-25 20:35 | Ultrasound Report ---
Exam(s): US ABDOMEN LIMITED EXAM: US Abdomen Limited CLINICAL HISTORY: Reason for exam: Eval ascites. TECHNIQUE: Real-time ultrasound of the all 4 quadrants with image documentation. COMPARISON: No relevant prior studies available. FINDINGS: . Free fluid: Moderate amount of free fluid is seen bilaterally in the abdomen, left more than right. IMPRESSION: Moderate ascites. Electronically signed by: Gm Smith MD 09/25/23 20:34 PM
[2023-09-25 20:39] LABS: Troponin I High Sensitivity 15.8 pg/ml (0-20)
[2023-09-25 20:51] LABS: Anisocytosis Present; Basophils # (auto) 0.01 K/uL (0.00-0.20); Basophils % (auto) 0.1 %; Echinocytes 1+; Eosinophils # (auto) 0.14 K/uL (0.00-0.50); Eosinophils % (auto) 1.4 %; Hematocrit (blood only) 29.1 % (42.0-52.0); Hemoglobin 9.6 g/dl (14.0-18.0); Immature Granulocytes # (auto) 0.16 K/uL (0.01-0.20); Immature Granulocytes % (auto) 1.6 %; Lymphocytes # (auto) 0.57 K/uL (1.20-3.40); Lymphocytes % (auto) 5.7 %; Mean Platelet Volume 13.2 fL (9.4-12.4); Neutrophils # (auto) 7.88 K/uL (1.40-6.50); Neutrophils % (auto) 79.2 %; Platelet Count 205 K/uL (130-400); Polychromasia 1+; RDW Coefficient of Variation 25.1 % (11.5-14.5); RDW Standard Deviation 84.8 fL (36.4-46.3); Red Blood Count 2.91 M/uL (4.70-6.10); Tear Drop Cells 2+; White Blood Count 9.96 K/ul (4.8-10.8)
--- NOTE | 2023-09-25 21:04 | Emergency Department Note ---
Impression & Plan Abdominal ascites, Bilateral edema of lower extremity, SOB (shortness of breath) ED Provider Note NAME: OTIS JADE AGE: 63 SEX: M : 1960 ARRIVES VIA: Walk-In INFORMANT: Patient, ED PROVIDER(S): Meliton Weiss DO CHIEF COMPLAINT: Shortness of breath HPI: The patient is a 63-year-old male who has a history of metastatic pancreatic cancer to the liver with resultant ascites and cirrhosis who presented to the emergency department for an evaluation of difficulty breathing and worsening symptoms. The patient has had ongoing symptoms for many months. He was recently in our facility and discharged after paracentesis 2 days ago. The patient states his fluid reaccumulated quickly. He is having difficulty breathing especially with lying down as well as bending forward. The patient denies having any fever. ROS: See above HPI for pertinent positives & negatives. A total of 10 systems reviewed and were otherwise negative. PAST MEDICAL HISTORY: See Below PAST SURGICAL HISTORY: See Below FAMILY HISTORY: See Below SOCIAL HISTORY: See Below HOME MEDICATIONS: See Below ALLERGIES: See Below VITALS: See Below PHYSICAL EXAMINATION: GENERAL: Patient is awake alert in no acute distress patient is resting comfortably and showing no signs of anxiety EYES: The conjunctivae are clear. The pupils are round and reactive. EARS, NOSE, MOUTH AND THROAT: The nose is without any evidence of any deformity. Mucous membranes are moist. Tongue is midline. NECK: The neck is nontender and supple. RESPIRATORY: Shallow respirations were noted. There were rales noted at both bases. CARDIOVASCULAR: Regular rate and rhythm noted there no murmurs rubs or gallops normal S1 normal S2. GASTROINTESTINAL: The abdomen is distended and diffusely tender. There is no guarding or rigidity. MUSCULOSKELETAL/EXTREMITIES: There is no evidence of gross deformity full range of motion is noted in the hips and shoulders. SKIN: Chronic venous stasis changes were noted. There was pedal edema bilaterally. NEUROLOGIC: Patient is awake alert and oriented x3. MEDICAL DECISION MAKING: The patient is a 63-year-old male who presented to the emergency department for an evaluation of difficulty breathing. The patient has a history of malignant ascites because of metastatic pancreatic cancer. The patient recently had a paracentesis but unfortunately the patient did not receive very long relief. He returns today because of ongoing symptoms. I [facility] the [facility]. Likely the patient will require further inpatient management as well as paracentesis for continued symptoms and abdominal ascites. Triage Nursing notes reviewed. Prior medical records reviewed Vital Signs: reviewed and remarkable for no significant abnormalities Differential diagnosis: Infection, dehydration, metabolic abnormality, hypo/hyperglycemia, electrolyte disturbance, anemia, hypoxia, cardiac sources, intracerebral event, toxicologic, neurologic, as well as other pathologies. ER treatment provided: See below Diagnostics interpreted by me: ECG: EKG was obtained in the emergency department. My interpretation is normal sinus rhythm at 92 bpm. There is no ectopy. There is no acute ST segment abnormalities noted. This was compared to a tracing from September 19, 2023. No changes were noted. Cardiac Monitoring: An order was placed for continuous cardiac monitoring. The monitor shows a rate of 90 bpm with sinus rhythm. Laboratory studies: As stated above and show below. Imaging studies: See below. Radiographic imaging was reviewed by myself Consultation(s): I discussed this case with Dr. Boudreaux who [facility] He will evaluate the patient in the emergency department. Past Med/Surg History Medical History GERD (gastroesophageal reflux disease) Gout 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 Social History Smoking Status: Never smoker Tobacco Type: Cigarettes Second Hand Exposure: No; Hx Alcohol Use: No Hx Substance Use: No Preferred Language: Welsh Communication Ability: Effective Musical Instrument Maker Required: No Beliefs That Will Affect Care: Buddhism Buddhism Beliefs: Oriental Orthodox marital status: Current Living Situation: Significant Other Feels Safe at Home: Yes Assistive Devices: None Allergies Allergies Allergy/AdvReac Type Severity Reaction Status Date / Time No Known Allergies Allergy Verified 09/25/23 20:32 Home Meds Home Medications Medication Instructions Recorded Confirmed allopurinol 300 mg tablet 300 mg PO QAM 05/02/22 09/25/23 diltiazem HCl 120 mg capsule,24 120 mg PO DAILY 05/02/22 09/25/23 hr,extended release lisinopril 10 mg tablet 10 mg PO DAILY 05/02/22 09/25/23 finasteride 5 mg tablet 5 mg PO QAM 08/10/22 09/25/23 omeprazole 20 mg capsule,delayed 20 mg PO DAILYBB 08/10/22 09/25/23 release magnesium oxide 400 mg PO QAM 04/04/23 09/25/23 ondansetron HCl 8 mg tablet 8 mg PO Q8 PRN Nausea 04/04/23 09/25/23 potassium chloride 10 mEq 10 meq PO AMHS 04/04/23 09/25/23 tablet,extended release silodosin 8 mg capsule 8 mg PO QAM 04/04/23 09/25/23 baclofen 10 mg tablet 10 mg PO BID 08/18/23 09/25/23 polyethylene glycol 3350 17 gram 17 g PO DAILY PRN Constipation 08/18/23 09/25/23 oral powder packet (Miralax) sennosides 8.6 mg tablet (senna) 17.2 mg PO HS 08/18/23 09/25/23 aspirin 81 mg tablet,delayed 81 mg PO DAILY 09/25/23 09/25/23 release Previous Rx's Medication Instructions Recorded loperamide 2 mg capsule (Imodium 2 mg PO Q6H PRN loose stool #30 09/22/23 A-D) caps oxycodone 10 mg tablet 10 mg PO Q8H PRN pain #20 tabs 09/23/23 Results & Data (ED) Vital Signs Vital Signs - 24 hr 09/25/23 18:43 09/25/23 19:32 09/25/23 19:40 Temperature 36.9 C Temperature Source Temporal Artery Scan Pulse Rate 105 H 103 H 102 H Pulse Rate [Apical] Pulse Rate from SpO2 Sensor Respiratory Rate 19 18 Respiratory Effort / Characteristics Non-Labored Spontaneous Respiratory Depth Normal Blood Pressure 121/67 Blood Pressure [Right Arm] Blood Pressure Mean 85 Blood Pressure Mean [Right Arm] Blood Pressure Position [Right Arm] Pulse Oximetry 97 97 Oxygen Delivery Method Room Air Room Air Sepsis Recent Fever Within 48 Hours No Sepsis New/Unexplained Change in Mental Status No Sepsis Action Taken by Nursing No Action Required 09/25/23 19:40 09/25/23 20:30 09/25/23 21:00 Temperature Temperature Source Pulse Rate 98 H 94 H Pulse Rate [Apical] 101 H Pulse Rate from SpO2 Sensor 98 H 95 H Respiratory Rate 16 15 16 Respiratory Effort / Characteristics Respiratory Depth Blood Pressure 102/76 115/73 Blood Pressure [Right Arm] 107/67 Blood Pressure Mean 84 87 Blood Pressure Mean [Right Arm] 80 Blood Pressure Position [Right Arm] Lying Pulse Oximetry 97 96 97 Oxygen Delivery Method Room Air Room Air Room Air Sepsis Recent Fever Within 48 Hours Sepsis New/Unexplained Change in Mental Status Sepsis Action Taken by Nursing 09/25/23 22:00 09/25/23 22:30 Temperature Temperature Source Pulse Rate 92 H 90 Pulse Rate [Apical] Pulse Rate from SpO2 Sensor 92 H 90 Respiratory Rate 15 14 Respiratory Effort / Characteristics Respiratory Depth Blood Pressure 112/74 111/68 Blood Pressure [Right Arm] Blood Pressure Mean 86 82 Blood Pressure Mean [Right Arm] Blood Pressure Position [Right Arm] Pulse Oximetry 97 94 Oxygen Delivery Method Room Air Room Air Sepsis Recent Fever Within 48 Hours Sepsis New/Unexplained Change in Mental Status Sepsis Action Taken by Long Term Medications Current Medication List: was personally reviewed by me Laboratory Data Attestation: I reviewed the patient's lab results. 09/25/23 19:35 09/25/23 19:35 Lab Results 09/25/23 09/25/23 09/25/23 Range/Units 19:35 19:42 20:47 WBC 9.96 (4.8-10.8) K/ul RBC 2.91 L (4.70-6.10) M/uL Hgb 9.6 L (14.0-18.0) g/dl Hct 29.1 L (42.0-52.0) % MCV 100.0 (80.0-100.0) fL MCH 33.0 (25.0-34.0) pg MCHC 33.0 (32.0-36.0) g/dL RDW Std Deviation 84.8 H (36.4-46.3) fL RDW Coeff of Ophelia 25.1 H (11.5-14.5) % Plt Count 205 (130-400) K/uL MPV 13.2 H (9.4-12.4) fL Immature Gran % (Auto) 1.6 % Neut % (Auto) 79.2 % Lymph % (Auto) 5.7 % Swain % (Auto) 12.0 % Eos % (Auto) 1.4 % Baso % (Auto) 0.1 % Neut # (Auto) 7.88 H (1.40-6.50) K/uL Lymph # (Auto) 0.57 L (1.20-3.40) K/uL Swain # (Auto) 1.20 H (0.11-0.59) K/uL Eos # (Auto) 0.14 (0.00-0.50) K/uL Baso # (Auto) 0.01 (0.00-0.20) K/uL Immature Gran # (Auto) 0.16 (0.01-0.20) K/uL Polychromasia 1+ Anisocytosis Present Tear Drop Cells 2+ Echinocytes 1+ PT Cancelled 20.4 H INR Cancelled 1.9 H APTT Cancelled > 139 H* PTT Ratio Cancelled > 4.9 Sodium 131 L (136-145) mmol/L Potassium 4.8 (3.5-5.1) mmol/L Chloride 102 (98-107) mmol/L Carbon Dioxide 18 L (21-32) mmol/L Anion Gap 11 (3-11) BUN 48 H (6-23) mg/dl Creatinine 1.54 H (0.6-1.4) mg/dl Est Cr Clr Drug Dosing 70.6 ml/min Est GFR ( Amer) 55.6 ml/min Est GFR (Non-Af Amer) 48.0 ml/min BUN/Creatinine Ratio 31.2 H (10-20) Glucose 134 H (70-99(Fasting)) mg/dl Calcium 7.7 L (8.6-10.3) mg/dl Magnesium 1.8 (1.7-2.4) mg/dl Total Bilirubin 4.8 H (0.2-1.0) mg/dl Direct Bilirubin 2.8 H (0-0.2) mg/dl AST 56 H (13-39) U/L ALT 23 (7-52) U/L Alkaline Phosphatase 256 H (34-104) U/L Ammonia 70.0 (18-72) umol/L Troponin I High Sens 15.8 (0-20) pg/ml Total Protein 4.8 L (6.0-8.3) gm/dl Albumin 2.5 L (3.4-5.0) gm/dl Globulin 2.3 L (2.5-4.0) gm/dl Albumin/Globulin Ratio 1.1 (0.9-2) Lipase 80 (11-82) U/L 09/25/23 Range/Units 21:14 WBC (4.8-10.8) K/ul RBC (4.70-6.10) M/uL Hgb (14.0-18.0) g/dl Hct (42.0-52.0) % MCV (80.0-100.0) fL MCH (25.0-34.0) pg MCHC (32.0-36.0) g/dL RDW Std Deviation (36.4-46.3) fL RDW Coeff of Ophelia (11.5-14.5) % Plt Count (130-400) K/uL MPV (9.4-12.4) fL Immature Gran % (Auto) % Neut % (Auto) % Lymph % (Auto) % Swain % (Auto) % Eos % (Auto) % Baso % (Auto) % Neut # (Auto) (1.40-6.50) K/uL Lymph # (Auto) (1.20-3.40) K/uL Swain # (Auto) (0.11-0.59) K/uL Eos # (Auto) (0.00-0.50) K/uL Baso # (Auto) (0.00-0.20) K/uL Immature Gran # (Auto) (0.01-0.20) K/uL Polychromasia Anisocytosis Tear Drop Cells Echinocytes PT INR APTT PTT Ratio Sodium (136-145) mmol/L Potassium (3.5-5.1) mmol/L Chloride (98-107) mmol/L Carbon Dioxide (21-32) mmol/L Anion Gap (3-11) BUN (6-23) mg/dl Creatinine (0.6-1.4) mg/dl Est Cr Clr Drug Dosing ml/min Est GFR ( Amer) ml/min Est GFR (Non-Af Amer) ml/min BUN/Creatinine Ratio (10-20) Glucose (70-99(Fasting)) mg/dl Calcium (8.6-10.3) mg/dl Magnesium (1.7-2.4) mg/dl Total Bilirubin (0.2-1.0) mg/dl Direct Bilirubin (0-0.2) mg/dl AST (13-39) U/L ALT (7-52) U/L Alkaline Phosphatase (34-104) U/L Ammonia (18-72) umol/L Troponin I High Sens 27.2 H D (0-20) pg/ml Total Protein (6.0-8.3) gm/dl Albumin (3.4-5.0) gm/dl Globulin (2.5-4.0) gm/dl Albumin/Globulin Ratio (0.9-2) Lipase (11-82) U/L Administered Medications Heparin Sodium (Porcine) (Heparin 100 Unit/Ml 5ml Flush) 5 ml FLUSH PRN PRN PRN Reason: Flush Stop: 10/25/23 19:35 Last Admin: 09/25/23 21:15 Dose: 5 ml Documented By: Admin: 09/25/23 19:43 Dose: 5 ml Documented By: Imaging Data Attestation: I personally reviewed and interpreted this imaging study as follows: My Impression: 1 view chest x-ray was obtained in the emergency department. My interpretation is no free air or definite infiltrate, final report below Radiologist's Impression: Abdomen Ultrasound 09/25/23 18:47 Exam(s): US ABDOMEN LIMITED EXAM: US Abdomen Limited CLINICAL HISTORY: Reason for exam: Eval ascites. TECHNIQUE: Real-time ultrasound of the all 4 quadrants with image documentation. COMPARISON: No relevant prior studies available. FINDINGS: . Free fluid: Moderate amount of free fluid is seen bilaterally in the abdomen, left more than right. IMPRESSION: Moderate ascites. Electronically signed by: Gm Smith MD 09/25/23 20:34 PM Chest X-Ray 09/25/23 18:47 XR chest 1V portable CLINICAL HISTORY: Abdominal bloating TECHNIQUE: Single frontal radiograph of the chest was obtained. Comparison: Comparison is made to chest radiograph 09/19/2023 FINDINGS: A port catheter is seen. The cardiomediastinal silhouette is normal. Atelectasis at the left lung base. No evidence of pleural effusion or pneumothorax. IMPRESSION: No acute chest disease. ACT 112: Negative or not required by law. Electronically signed by: Marquis Pierson M.D. 09/25/2023 7:11 PM Discharge Plan Visit Data Chief Complaint: Abdominal Pain Stated Complaint: BLOATED ABD, SWELLING OF LEGS ED Provider: Meliton Weiss Discharge Problem: Abdominal ascites, Bilateral edema of lower extremity, SOB (shortness of breath) Patient Disposition: Being Evaluated by Hospitalist Forms Stand Alone Forms: [facility] Prescriptions Prescriptions: No Action allopurinol 300 mg tablet 300 mg PO QAM lisinopril 10 mg tablet 10 mg PO DAILY diltiazem HCl 120 mg capsule,extended release 24 hr 120 mg PO DAILY omeprazole 20 mg capsule,delayed release(DR/EC) 20 mg PO DAILYBB finasteride 5 mg tablet 5 mg PO QAM potassium chloride 10 mEq tablet extended release 10 meq PO AMHS Rx Instructions: not filled since 04/04/23 for 30 days magnesium oxide 400 mg magnesium Tablet 400 mg PO QAM silodosin 8 mg capsule 8 mg PO QAM ondansetron HCl 8 mg tablet 8 mg PO Q8 PRN (Reason: Nausea) sennosides [senna] 8.6 mg Tablet 17.2 mg PO HS polyethylene glycol 3350 [Miralax] 17 gram Powder In Packet 17 g PO DAILY PRN (Reason: Constipation) baclofen 10 mg tablet 10 mg PO BID loperamide [Imodium A-D] 2 mg capsule 2 mg PO Q6H PRN (Reason: loose stool) Qty: 30 0RF oxycodone 10 mg tablet 10 mg PO Q8H PRN (Reason: pain) Qty: 20 0RF aspirin 81 mg Tablet,Delayed Release (Dr/Ec) 81 mg PO DAILY Referrals Referrals: [facility] [Primary Care Provider] - Discharge Problem: Abdominal ascites Qualifiers: Ascites type: other type Qualified Code(s): R18.8 - Other ascites
[2023-09-25 21:49] LABS: INR 1.9 (0.9-1.1); Partial Thromboplastin Ratio > 4.9; Prothrombin Time 20.4 Seconds (9.0-12.0)
[2023-09-25 21:56] LABS: Partial Thromboplastin Time > 139 Seconds (21-31)
--- NOTE | 2023-09-25 23:22 | History & Physical Report ---
Date of Service September 25, 2023 Assessment & Plan (1) Ascites: Plan: 63-year-old male with past medical significant for adenocarcinoma of pancreas with mets to the liver, idiopathic chronic gout, hemochromatosis, portal hypertension with esophageal varices, hypertension, venous stasis dermatitis of both lower extremities, ureteral stricture, osteoarthritis presents with increasing edema of the lower extremity and also pain in lower extremity and also recurrence of his abdominal distention. Patient was recently in the hospital with moderate ascites and s/p paracentesis done on September 20, 2023 and cytology was benign and also stool studies came back negative and was discharged on loperamide and discontinued lactulose and sepsis was ruled out and SBP was ruled out now comes again because of increasing lower extremity edema with pain and also abdominal distention. Has mild abdominal discomfort. On ambulation gets short of breath. Denies chest pain. Some headache. No runny nose. No cough. No sore throat. Appetite is down. Micturating okay. Resting comfortably and hemodynamics stable. Ascites S/p paracentesis 2023 Moderate ascites again on imaging studies today May need to tap again diuretics? Bilateral lower extremity edema with pain Will check Dopplers pain control Metastatic pancreatic cancer Elevated total bilirubin Moderate ascites with splenic vein occlusion CT scan PET scan done on June 2023 showed progression of the disease in the liver Currently on single agent gemcitabine weekly x 2 followed by 1 week off. May need to be on diuretic Follow-up with heme-onc DVT prophylaxis SCDs for now Lovenox if no procedures planned Disposition Medical floor Full code History of Present Illness Chief Complaint: Bilateral lower extremity edema and pain and also abdominal distention Primary Care Provider: [facility] 63-year-old male with past medical history significant for adenocarcinoma of pancreas with mets to the liver, idiopathic chronic gout, hemochromatosis, portal hypertension with esophageal varices, hypertension, venous stasis dermatitis of both lower extremities, ureteral stricture, osteoarthritis presents with increasing edema of the lower extremity and also pain in lower extremity and also recurrence of his abdominal distention. Patient was recently in the hospital with moderate ascites and s/p paracentesis done on September 20, 2023 and cytology was benign and also stool studies came back negative and was discharged on loperamide and discontinued lactulose and sepsis was ruled out and SBP was ruled out now comes again because of increasing lower extremity edema with pain and also abdominal distention. Has mild abdominal discomfort. On ambulation gets short of breath. Denies chest pain. Some headache. No runny nose. No cough. No sore throat. Appetite is down. Micturating okay. Resting comfortably and hemodynamics stable. Past medical history. As mentioned above Past surgical history. Colonoscopy. Cystourethroscopy. EGD. EGD with endoscopic ultrasound. Laparoscopic pancreatectomy distal subtotal. Social history. Lives with girlfriend. Quit smoking in October 2022. No alcohol since October 2022. No drug use. Family history. Mother had cirrhosis. Father had heart attack in his 40s. M aternal grandfather had coronary disease. Paternal grandfather had emphysema. Coronary thrombosis. Maternal grandmother had diabetes. Paternal grandmother had coronary disease. Maternal aunt had liver cancer. Maternal uncle had liver cancer. Allergies Allergy/AdvReac Type Severity Reaction Status Date / Time No Known Allergies Allergy Verified 09/25/23 20:32 Home Medications Medication Instructions Recorded Confirmed Type allopurinol 300 mg tablet 300 mg PO QAM 05/02/22 09/25/23 History diltiazem HCl 120 mg capsule,24 120 mg PO DAILY 05/02/22 09/25/23 History hr,extended release lisinopril 10 mg tablet 10 mg PO DAILY 05/02/22 09/25/23 History finasteride 5 mg tablet 5 mg PO QAM 08/10/22 09/25/23 History omeprazole 20 mg capsule,delayed 20 mg PO DAILYBB 08/10/22 09/25/23 History release magnesium oxide 400 mg PO QAM 04/04/23 09/25/23 History ondansetron HCl 8 mg tablet 8 mg PO Q8 PRN Nausea 04/04/23 09/25/23 History potassium chloride 10 mEq 10 meq PO AMHS 04/04/23 09/25/23 History tablet,extended release silodosin 8 mg capsule 8 mg PO QAM 04/04/23 09/25/23 History baclofen 10 mg tablet 10 mg PO BID 08/18/23 09/25/23 History polyethylene glycol 3350 17 gram 17 g PO DAILY PRN Constipation 08/18/2307/19 History oral powder packet (Miralax) sennosides 8.6 mg tablet (senna) 17.2 mg PO HS 08/18/23 09/25/23 History loperamide 2 mg capsule (Imodium 2 mg PO Q6H PRN loose stool #30 09/22/23 0 09/25/23 Rx A-D) caps oxycodone 10 mg tablet 10 mg PO Q8H PRN pain #20 tabs 09/23/23 09/25/23 Rx aspirin 81 mg tablet,delayed 81 mg PO DAILY 09/25/23 09/25/23 History release Past Med/Surg History Medical History GERD (gastroesophageal reflux disease) Gout 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 Social History Smoking Status: Never smoker Tobacco Type: Cigarettes Second Hand Exposure: No; Hx Alcohol Use: No Hx Substance Use: No Preferred Language: Macedonian Communication Ability: Effective System Auditor Required: No Beliefs That Will Affect Care: None marital status: Current Living Situation: Significant Other Other Information That Helps Us Care for You: No Feels Safe at Home: Yes Safety Concerns: Feels Safe At This Time Assistive Devices: None Review of Systems Review of Systems: All systems reviewed & are unremarkable except as noted in HPI & below Physical Exam Physical Exam: General- Not in distress Head- atraumatic Eyes- PERRL. ENT- oropharynx clear Neck- supple, no JVD. Lungs- clear to auscultation no wheezing or crackles Heart- regular rhythm; no murmur, no gallop. Abdomen- normal bowel sounds, soft, mild distension no tenderness. Extremities- b/l lower extremity gross edema present, chronic skin changes seen. Neuro- alert, oriented PERRL, no facial palsy; no dysarthria; Results & Data Results & Data Vital Signs (Past 12 Hours) Vital Signs Temp Pulse Pulse Resp BP BP Pulse Ox 09/25/23 22:30 90 14 111/68 94 09/25/23 22:00 92 H 15 112/74 97 09/25/23 21:00 94 H 16 115/73 97 09/25/23 20:30 98 H 15 102/76 96 09/25/23 19:40 101 H 16 107/67 97 09/25/23 19:40 102 H 18 97 09/25/23 19:32 103 H 09/25/23 18:43 36.9 C 105 H 19 121/67 97 O2 Del Method 09/25/23 22:30 Room Air 09/25/23 22:00 Room Air 09/25/23 21:00 Room Air 09/25/23 20:30 Room Air 09/25/23 19:40 Room Air 09/25/23 19:40 Room Air 09/25/23 19:32 09/25/23 18:43 Room Air Diagnostic Findings Laboratory Results WBC 9.96 K/ul (4.8-10.8) 09/25/23 19:35 RBC 2.91 M/uL (4.70-6.10) L 09/25/23 19:35 Hgb 9.6 g/dl (14.0-18.0) L 09/25/23 19:35 Hct 29.1 % (42.0-52.0) L 09/25/23 19:35 MCV 100.0 fL (80.0-100.0) 09/25/23 19:35 MCH 33.0 pg (25.0-34.0) 09/25/23 19:35 MCHC 33.0 g/dL (32.0-36.0) 09/25/23 19:35 RDW Std Deviation 84.8 fL (36.4-46.3) H 09/25/23 19:35 RDW Coeff of Ophelia 25.1 % (11.5-14.5) H 09/25/23 19:35 Plt Count 205 K/uL (130-400) 09/25/23 19:35 MPV 13.2 fL (9.4-12.4) H 09/25/23 19:35 Immature Gran % (Auto) 1.6 % 09/25/23 19:35 Neut % (Auto) 79.2 % 09/25/23 19:35 Lymph % (Auto) 5.7 % 09/25/23 19:35 Rabun % (Auto) 12.0 % 09/25/23 19:35 Eos % (Auto) 1.4 % 09/25/23 19:35 Baso % (Auto) 0.1 % 09/25/23 19:35 Neut # (Auto) 7.88 K/uL (1.40-6.50) H 09/25/23 19:35 Lymph # (Auto) 0.57 K/uL (1.20-3.40) L 09/25/23 19:35 Rabun # (Auto) 1.20 K/uL (0.11-0.59) H 09/25/23 19:35 Eos # (Auto) 0.14 K/uL (0.00-0.50) 09/25/23 19:35 Baso # (Auto) 0.01 K/uL (0.00-0.20) 09/25/23 19:35 Immature Gran # (Auto) 0.16 K/uL (0.01-0.20) 09/25/23 19:35 Polychromasia 1+ 09/25/23 19:35 Anisocytosis Present 09/25/23 19:35 Tear Drop Cells 2+ 09/25/23 19:35 Echinocytes 1+ 09/25/23 19:35 PT 20.4 Seconds (9.0-12.0) H 09/25/23 20:47 INR 1.9 (0.9-1.1) H 09/25/23 20:47 APTT > 139 Seconds (21-31) H* 09/25/23 20:47 PTT Ratio > 4.9 09/25/23 20:47 Sodium 131 mmol/L (136-145) L 09/25/23 19:35 Potassium 4.8 mmol/L (3.5-5.1) 09/25/23 19:35 Chloride 102 mmol/L (98-107) 09/25/23 19:35 Carbon Dioxide 18 mmol/L (21-32) L 09/25/23 19:35 Anion Gap 11 (3-11) 09/25/23 19:35 BUN 48 mg/dl (6-23) H 09/25/23 19:35 Creatinine 1.54 mg/dl (0.6-1.4) H 09/25/23 19:35 Est Cr Clr Drug Dosing 70.6 ml/min 09/25/23 19:35 Est GFR ( Amer) 55.6 ml/min 09/25/23 19:35 Est GFR (Non-Af Amer) 48.0 ml/min 09/25/23 19:35 BUN/Creatinine Ratio 31.2 (10-20) H 09/25/23 19:35 Glucose 134 mg/dl (70-99(Fasting)) H 09/25/23 19:35 Calcium 7.7 mg/dl (8.6-10.3) L 09/25/23 19:35 Magnesium 1.8 mg/dl (1.7-2.4) 09/25/23 19:35 Total Bilirubin 4.8 mg/dl (0.2-1.0) H 09/25/23 19:35 Direct Bilirubin 2.8 mg/dl (0-0.2) H 09/25/23 19:35 AST 56 U/L (13-39) H 09/25/23 19:35 ALT 23 U/L (7-52) 09/25/23 19:35 Alkaline Phosphatase 256 U/L (34-104) H 09/25/23 19:35 Ammonia 70.0 umol/L (18-72) 09/25/23 19:42 Troponin I High Sens 27.2 pg/ml (0-20) H D 09/25/23 21:14 Total Protein 4.8 gm/dl (6.0-8.3) L 09/25/23 19:35 Albumin 2.5 gm/dl (3.4-5.0) L 09/25/23 19:35 Globulin 2.3 gm/dl (2.5-4.0) L 09/25/23 19:35 Albumin/Globulin Ratio 1.1 (0.9-2) 09/25/23 19:35 Lipase 80 U/L (11-82) 09/25/23 19:35 Impressions Abdomen Ultrasound 09/25/23 18:47 Exam(s): US ABDOMEN LIMITED EXAM: US Abdomen Limited CLINICAL HISTORY: Reason for exam: Eval ascites. TECHNIQUE: Real-time ultrasound of the all 4 quadrants with image documentation. COMPARISON: No relevant prior studies available. FINDINGS: . Free fluid: Moderate amount of free fluid is seen bilaterally in the abdomen, left more than right. IMPRESSION: Moderate ascites. Electronically signed by: Gm Smith MD 09/25/23 20:34 PM Chest X-Ray 09/25/23 18:47 XR chest 1V portable CLINICAL HISTORY: Abdominal bloating TECHNIQUE: Single frontal radiograph of the chest was obtained. Comparison: Comparison is made to chest radiograph 09/19/2023 FINDINGS: A port catheter is seen. The cardiomediastinal silhouette is normal. Atelectasis at the left lung base. No evidence of pleural effusion or pneumothorax. IMPRESSION: No acute chest disease. ACT 112: Negative or not required by law. Electronically signed by: Marquis Pierson M.D. 09/25/2023 7:11 PM ECG Additional Comments: ECG. Normal sinus rhythm at rate 92. No significant change was found. Code Status & VTE Plan VTE Prophylaxis Plan VTE Prophylaxis will be ordered: Yes
[2023-09-25 23:46] LABS: Appearance Urine Cloudy (Clear); Bacteria Urine Automated Negative (Negative); Blood Urine Negative (Negative); Color Urine Dark Yellow; Epithelial Cell Urine Auto >30 /lpf (0-5); Glucose Urine UA Negative (Negative); Ketones Urine Trace (Negative); Leukocyte Esterase Urine Trace (Negative); Nitrite Urine Positive (Negative); Protein Urine Negative (Negative); Specific Gravity Urine 1.013 (1.000-1.030); Urobilinogen Urine Negative (Negative)
[2023-09-26 00:07] LABS: Bilirubin Urine 1+ (Negative)
[2023-09-26 00:42] LABS: Calcium Oxalate Crystals Urine Present (None Prsent)
[2023-09-26] MEDS ORDERED: POLYETHYLENE (MIRALAX) 17 GM PACK PO PRN (01:42)
[2023-09-26] MEDS ORDERED: LOPERAMIDE HCL 2 MG CAP PO PRN (01:42)
--- OUTSIDE RECORDS SUMMARY | 2023-09-26 04:18 | External Medical Summary | Summary of Care ---
Author Name Unknown Organization [facility] Address [address] [place] [address] Phone [phone] Care Team Providers Care Pipe Finishing Supervisor Name Role Phone Ray Royal MD Primary Care Provider [phone] Reason for Visit * Reason Onset Date Comments Advice 09/19/2023 ozzie Encounter Details Date Type Department Care Team (Late st Contact Info) Description 09/19/2023 Telephone Hematology/Oncology [facility] [address] [place] [address] Services, Scheduling [address] [place] [address] Advice (ozzie) Allergies No known active allergiesdocumented as of this encounter (statuses as of 09/22/2023) Medications Medication Sig Dispensed Refills Start Date [...] as of this encounter (statuses as of 09/22/2023) Active Problems Problem Noted Date Diagnosed Date [...] as of this encounter (statuses as of 09/22/2023) Immunizations Name Administration Dates Next Due COVID-19 mRNA, LNP-s, No Pre serve, 2-Dose Series (Eye-Q) 02/23/2021,02/02/2021 HEP A - Hepatitis A (Adult > 18 yrs) 09/21/2020, 02/10/2020 Hepatitis B, 20+ yrs 09/21/2020,03/23/2020,02/09 Pneumococcal Conjugate Vacci ne, 20-valent ([id number]) 10/26/2022(Deferred: Patient Refused) Pneumococcal Polysaccharide PPV23 (Pneumovax) [...] Miscellaneous Notes * Telephone Encounter - Teto Horne MD - 09/22/2023 4:40 PM EDT I reviewed hospital records, he had abdominal paracentesis, cytology was negative. Abnormal liver function test noted, he was seen by GI, they did MRCP. The suspecting abnormal liver function tests related to the cancer diagnosis. They are not recommending lactulose in his case. I see that he is scheduled for the treatment next week but he may not receive the treatment as we planned. * Telephone Encounter - Benson Cisneros RN - 09/20/2023 9:[address] Varun manrique, patient admitted to [facility] yesterday. * Telephone Encounter - Benson Cisneros RN - 09/19/2023 1:41 PM EDT Called patient, he states he is feeling terrible, abdomen, arms, legs are swollen. Home health nurse was at the house and they had called the ambulance to come get him. Advised if the ambulance can, to take him to [facility]. He verbalized understanding. Dr. Varun manrique * Telephone Encounter - Arelis Smallwood OSA - 09/19/2023 1:32 PM EDT [place] home health aide was calling to speak with someone but then while on the phone she was also talking with pt and she thinks he is needing fluids so they are going to call the ambulance. To get him transported to the nearest hospital. Just wanted to make dr horne aware. Thank you documented in this encounter Plan of Treatment Upcoming Encounters Date Type Department Care Team (Late st Contact Info) Description 09/26/2023 11:00 AM EDT Office Visit Family Medicine [address] [place] [phone] [place] [address] 09/27/2023 12:50 PM EDT Laboratory Laboratory [facility] [place] [address] [place] [phone] Neisha, Lab [facility] 200 [facility] [place] [address] 09/27/2023 2:00 PM EDT Hem/Onc Treatment Hematology/Oncology Treatment, [place] 200 [facility] [place] [phone] Neisha, Chair 1 Hem Onc [facility] 200 [facility] [place] [address] 10/04/2023 1:00 PM EDT Laboratory Laboratory [facility] [place] [address] [place] [phone] Neisha Lab [facility] [address] [place], [place] [address] 10/04/2023 2:00 PM EDT Hem/Onc Treatment Hematology/Oncology Treatment, [address], [place] [address] 10/04/2023 2:00 PM EDT Office Visit Palliative Medicine [facility] 200 [facility], [place] [phone] Shante Prado MD 400 [place] [address] 10/10/2023 12:45 PM EDT Imaging Radiology [address], [place] 132 [facility] [address] 10/19/2023 10:30 AM EDT Laboratory Laboratory [facility] [place] [address] [place] [address] [facility]isha [facility] [address] [facility] [place] [address] 10/19/2023 11:00 AM EDT Office Visit Hematology/Oncology [facility] [place] [address] [place] [address] Rachel Marina CRNP 400 [place] [address] 10/19/2023 11:30 AM EDT Hem/Onc Treatment Hematology/Oncology Treatment, [place] 200 [facility], [place] [address] Neisha, Chair 8 Hem Onc [facility] [address] [place] [address] [address] 10/26/2023 12:50 PM EDT Laboratory Laboratory [facility] [place] [address] [place] [phone] Neisha Lab [address] 200 [place] [place] [address] 10/26/2023 2:00 PM EDT Hem/Onc Treatment Hematology/Oncology Treatment, [place] [address] [place] [address] Neisha, Chair 9 Hem Onc [place] 200 [place] [address] 11/15/2023 11:30 AM EDT Office Visit Urology, [facility] 132 [facility] [place] [address] Adolfo Key MD [address] [place] [...] Medical Devices Implanted Type Area Wood Heel Flap Rubber Device Identifier Shelf Expiration Date Model / Serial / Lot Port Implant W/8f Poly Cath - [id number] Implanted:Qty : 1 on 12/01/2022 by Brad Cerda DO at OR [facility] Right: Chest CR BARD : PERIPHERAL VASCULAR [id number] 02/24/2024 [id number] / / [id number] System Urolift - [id number] Implanted:Qty : 6 on 05/31/2023 by Adolfo Key MD at OR [facility] [employer] 09/01/2023 [id number] / / [id number] Description:prostate documented as of this encounter Advance Directives Documents on File Type Date Recorded Patient Top Lifter Expl anation POLST 07/13/2023 4:08 PM POLST [...] Discussed due to patient's condition Care Teams Pipe Finishing Supervisor Relationship Specialty Start Date End Date Ray Royal MD [address] [place] [address] [place] [address] PCP - General Family Medicine 10/22/18 documented as of this encounter
--- OUTSIDE RECORDS SUMMARY | 2023-09-26 04:18 | External Medical Summary | Summary of Care ---
Author Name Unknown Organization [facility] Address [address] [place] [address] Phone [phone] Care Team Providers Care Vanstone Machine Operator Name Role Phone Ray Royal MD Primary Care Provider [phone] Reason for Visit * Reason Onset Date Comments Advice 09/19/2023 ozzie Encounter Details Date Type Department Care Team (Late st Contact Info) Description 09/19/2023 Telephone Hematology/Oncology [facility] [address] [place] [address] Services, Scheduling [address] [place] [address] Advice (ozzie) Allergies No known active allergiesdocumented as of this encounter (statuses as of 09/25/2023) Medications Medication Sig Dispensed Refills Start Date [...] as of this encounter (statuses as of 09/25/2023) Active Problems Problem Noted Date Diagnosed Date [...] as of this encounter (statuses as of 09/25/2023) Immunizations Name Administration Dates Next Due COVID-19 mRNA, LNP-s, No Pre serve, 2-Dose Series (YouHelp) 02/23/2021,02/02/2021 HEP A - Hepatitis A (Adult > 18 yrs) 09/21/2020, 02/10/2020 Hepatitis B, 20+ yrs 09/21/2020,03/23/2020,02/09 Pneumococcal Conjugate Vacci ne, 20-valent ([id number]) 10/26/2022(Deferred: Patient Refused) Pneumococcal Polysaccharide PPV23 (Pneumovax) [...] Telephone Encounter - Benson Cisneros RN - 09/25/2023 9:[address] Elma manrique regarding patient status, will review labs on Monday prior to treatment. * Telephone Encounter - Teto Horne MD [...] EDT Dr. Varun manrique, patient admitted to [facility] yesterday. * Telephone Encounter - Benson Cisneros RN - 09/19/2023 1:41 PM EDT Called patient, he states he is feeling terrible, abdomen, arms, legs are swollen. Home health nurse was at the house and they had called the ambulance to come get him. Advised if the ambulance can, to take him to [facility]. He verbalized understanding. Dr. Varun manrique * [...] 11:00 AM EDT Office Visit Family Medicine [address] [phone] Juanita Vallejo [address] [place] [address] 09/27/2023 12:50 PM EDT Laboratory Laboratory [facility] [place] [address] [place] [phone] Neisha Lab [facility] 200 [facility] [place] [address] 09/27/2023 2:00 PM EDT Hem/Onc Treatment Hematology/Oncology Treatment, [address] [place] [phone] Neisha, Chair 1 Hem Onc [address] [place], [place] [address] 10/04/2023 1:00 PM EDT Laboratory [facility] [place] [address] [place], [place] [address] Neisha, Lab [address] [facility] [place], [place] [address] 10/04/2023 2:00 PM EDT Hem/Onc Treatment Hematology/Oncology Treatment, [place] 200 [facility], [place] [phone] 10/04/2023 2:00 PM EDT Office Visit Palliative Medicine [facility] [place] 200 [facility], [place] [phone] Shante Prado MD [address] [place] [address] 10/10/2023 12:45 PM EDT Imaging Radiology [address], [place] 132 [facility] [place] [address] 10/19/2023 10:30 AM EDT Laboratory Laboratory [facility] [address] [place], [place] [phone] Neisha, Lab [address] [place], [place] [address] 10/19/2023 11:00 AM EDT Office Visit Hematology/Oncology [facility] [place] [address] [place], [place] [phone] Rachel Marina CRNP 400 [facility] [phone] 10/19/2023 11:30 AM EDT Hem/Onc Treatment Hematology/Oncology Treatment, [place] 200 [facility], [place] [phone] Neisha, Chair 8 Hem Onc Sc[address] [place], [place] [address] 10/26/2023 12:50 PM EDT Laboratory Laboratory [address]ery [place] [address] [place] [phone] Neisha, Lab [address]ery [address] [facility] [place] [address] 10/26/2023 2:00 PM EDT Hem/Onc Treatment Hematology/Oncology Treatment, [place] [address] [place], [place] [phone] Neisha, Chair 9 Hem Onc [address] [place] [address] 11/15/2023 11:30 AM EDT Office Visit Urology, [facility] 132 [facility] [place] [address] Adolfo Key MD [address] [place] [address] Scheduled Procedures Name Priority Associated Diagnoses Date/Ti [...] encounter Medical Devices Implanted Type Area Director Product Management Device Identifier Shelf Expiration Date Model / Serial / Lot Port Implant W/8f Poly Cath - [id number] Implanted:Qty : 1 on 12/01/2022 by Brad Cerda DO at OR [facility] Right: Chest CR BARD : PERIPHERAL VASCULAR [id number] 02/24/2024 [id number] / / [id number] System Urolift - [id number] Implanted:Qty : 6 on 05/31/2023 by Adolfo Key MD at OR [facility] [employer] 09/01/2023 [id number] / / [id number] Description:prostate documented as of this encounter Advance Directives Documents on File Type Date Recorded Patient Logistics Supply Officer Expl anation POLST 07/13/2023 4:08 PM [...] Discussed due to patient's condition Care Teams Vanstone Machine Operator Relationship Specialty Start Date End Date Ray Royal MD [address] [place] [address] [place] [address] PCP - General Family Medicine 10/22/18 documented as of this encounter
--- OUTSIDE RECORDS SUMMARY | 2023-09-26 04:18 | External Medical Summary | Summary of Care ---
Author Name Unknown Organization [facility] Address [address] [place] [address] Phone [phone] Care Team Providers Care Paint Roller Covers Supervisor Name Role Phone Ray Royal MD Primary Care Provider [phone] Encounter Details Date Type Department Care Team (Late st Contact Info) Description 09/04/2023 Orders Only Hematology/Oncology Tisha [place] 200 [facility] [place] [address] Teto Torrez MD 200 [place] [address] Allergies No known active allergiesdocumented as of [...] Dehydration 08/09/2023 Food insecurity 06/05/2023 Overview: Per [facility] Protocol Urethral stricture 04/03/2023 Slow [...] mRNA, LNP-s, No Pre serve, 2-Dose Series (CityVoter) 02/23/2021,02/02/2021 HEP A - Hepatitis A (Adult > 18 yrs) 09/21/2020, 02/10/2020 Hepatitis B, 20+ yrs 09/21/2020,03/23/2020,02/09 Pneumococcal Conjugate Vacci ne, 20-valent ([id number]) 10/26/2022(Deferred: Patient Refused) Pneumococcal Polysaccharide PPV23 (Pneumovax) [...] 11:00 AM EDT Office Visit Family Medicine [address] [place] [phone] Juanita Vallejo [address] [place] [address] 09/27/2023 12:50 PM EDT Laboratory Laboratory [facility] [place] [address] [address] [place] [phone] Neisha, Lab [address] [place] [address] 09/27/2023 2:00 PM EDT Hem/Onc Treatment Hematology/Oncology [address] [phone] Neisha, Chair 1 Hem Onc [address] [place] [address] 10/04/2023 1:00 PM EDT Laboratory Laboratory [facility] [place] [address] [address] [place] [phone] Neisha, Lab [address] [place] [address] 10/04/2023 2:00 PM EDT Hem/Onc Treatment Hematology/Oncology [address]ONIMO [phone] 10/04/2023 2:00 PM EDT Office Visit Palliative Medicine [facility] [address] [phone] Shante Luna MD 400 [place] [address] 10/10/2023 12:45 PM EDT Imaging Radiology [address] 132 [facility] [place] [address] 10/19/2023 10:30 AM EDT Laboratory Laboratory [facility] [address] [place] [phone] Neisha, Lab [address] [place] [address] 10/19/2023 11:00 AM EDT Office Visit Hematology/Oncology [facility] [place] [address] [place] [phone] Rachel Marina CRNP 400 [place] [address] 10/19/2023 11:30 AM EDT Hem/Onc Treatment Hematology/Oncology Treatment, [place] 200 [facility], [place] [address] Neisha, Chair 8 Hem Onc [address] [place], [place] [address] 10/26/2023 12:50 PM EDT Laboratory Laboratory [facility] [place] [address] [place], [place] [phone] Neisha, Lab [address] [place], [place] [address] 10/26/2023 2:00 PM EDT Hem/Onc Treatment Hematology/Oncology Treatment, [place] 200 [facility], [place] [phone] Neisha, Chair 9 Hem Onc [address] [place], [place] [address] 11/15/2023 11:30 AM EDT Office Visit Urology, [facility] 132 [facility] [place] [address] Adolfo Key MD 27 [facility] [place] [address] [place] [address] Scheduled [...] this encounter Medical Devices Implanted Type Area Ship Self Defense System Mk1 Operator Device Identifier Shelf Expiration Date Model / Serial / Lot Port Implant W/8f Poly Cath - [id number] Implanted:Qty : 1 on 12/01/2022 by Brad Cerda DO at OR [facility] Right: Chest CR BARD : PERIPHERAL VASCULAR [id number] 02/24/2024 [id number] / / [id number] System Urolift - [id number] Implanted:Qty : 6 on 05/31/2023 by Adolfo Key MD at OR [facility] [employer] 09/01/2023 [id number] / / [id number] Description:prostate documented as of this encounter Advance Directives Documents on File Type Date Recorded Patient Milk Of Lime Slaker Expl anation POLST 07/13/2023 4:08 PM POLST [...] Discussed due to patient's condition Care Teams Paint Roller Covers Supervisor Relationship Specialty Start Date End Date Ray Royal MD [address] [place] [address] [place] [address] PCP - General Family Medicine 10/22/18 documented as of this encounter
--- OUTSIDE RECORDS SUMMARY | 2023-09-26 04:18 | External Medical Summary | Summary of Care ---
Author Name Unknown Organization [facility] Address [address] [place] [address] Phone [phone] Care Team Providers Care Director Of Neurology Name Role Phone Ray Royal MD Primary Care Provider [phone] Encounter Details Date Type Department Care Team (Late st Contact Info) Description 09/20/2023 Result Scan Unspecified Department Da Marina CRNP [address] [place] [address] <No scans attached> Allergies No known active allergiesdocumented as of this encounter (statuses as of 09/21/2023) Medications Medication Sig Dispensed Refills Start Date [...] as of this encounter (statuses as of 09/21/2023) Active Problems Problem Noted Date Diagnosed Date [...] 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 Primary hypertension documented as of this encounter (statuses as of 09/21/2023) Immunizations Name Administration Dates Next Due COVID-19 mRNA, LNP-s, No Pre serve, 2-Dose Series (First Aid Shot Therapy) 02/23/2021,02/02/2021 HEP A - Hepatitis A (Adult > 18 yrs) 09/21/2020, 02/10/2020 Hepatitis B, 20+ yrs 09/21/2020,03/23/2020,02/09 Pneumococcal Conjugate Vacci ne, 20-valent ([id number]) 10/26/2022(Deferred: Patient Refused) Pneumococcal Polysaccharide PPV23 (Pneumovax) [...] Description 09/27/2023 12:50 PM EDT Laboratory Laboratory [facility] Neisha [place] [address] [place] [phone] [address] [place] [address] 09/27/2023 2:00 PM EDT Hem/Onc Treatment Hematology/Oncology Treatment, [place] 200 [facility] [place] [address] Neisha, Chair 1 Hem Onc [place] [address] [place] [address] 10/04/2023 1:00 PM EDT Laboratory Laboratory Tisha Driver [place] [address] [place] [address] Patricio Driver [address] [facility] [place] [address] 10/04/2023 2:00 PM EDT Hem/Onc Treatment Hematology/Oncology Treatment, [place] [address] [place] [address] 10/04/2023 2:00 PM EDT Office Visit Palliative Medicine [facility] [place] 200 [facility], [place] [address] Shante Prado MD 400 [place] [address] 10/10/2023 12:45 PM EDT Imaging Radiology [address], [place] 132 [facility] [place] [address] 10/19/2023 10:30 AM EDT Laboratory Laboratory [facility] [place] [address] [place] [phone] Neisha, Lab [facility] [address] [facility] [place] [address] 10/19/2023 11:00 AM EDT Office Visit Hematology/Oncology [facility] [place] [address] [place] [phone] Rachel Marina CRNP 400 [place] [address] 10/19/2023 11:30 AM EDT Hem/Onc Treatment Hematology/Oncology Treatment, [place] 200 [facility], [place] [phone] Neisha, Chair 11 Hem Onc [facility] [address] [place] [address] 10/26/2023 12:50 PM EDT Laboratory Laboratory [facility] Neisha [place] [address] [place] [phone] Neisha, Lab [place] [address] [facility] [place] [address] 10/26/2023 2:00 PM EDT Hem/Onc Treatment Hematology/Oncology Treatment, [place] 200 [facility] [phone] Neisha, Chair 9 Hem Onc [address] [place] [address] 11/15/2023 11:30 AM EDT Office Visit Urology, [facility] [address] [place] [address] Adolfo Key MD [address] [place] [...] encounter Medical Devices Implanted Type Area Tire Trimmer Hand Device Identifier Shelf Expiration Date Model / Serial / Lot Port Implant W/8f Poly Cath - [id number] Implanted:Qty : 1 on 12/01/2022 by Brad Cerda DO at OR [facility] Right: Chest CR BARD : PERIPHERAL VASCULAR [id number] 02/24/2024 [id number] / / [id number] System Urolift - [id number] Implanted:Qty : 6 on 05/31/2023 by Adolfo Key MD at OR [facility] [employer] 09/01/2023 [id number] / / [id number] Description:prostate documented as of this encounter Procedures Procedure Name Priority Date/Time Associated Diagnosis Comments RADIOLOGY SCANNED RESULT 09/20/2023 documented in this encounter Results * RADIOLOGY SCANNED RESULT (09/20/2023) 09/20/2023 Da [facility] documented in this encounter Advance Directives Documents on File Type Date Recorded Patient Kiss Machine Operator Expl anation POLST 07/13/2023 4:08 PM POLST (Keli lozada DNR) Latest Code Status on File Code [...] Date End Date Ray Royal MD [address] [place] [address] [place] [phone] PCP - General Family Medicine 10/22/18 documented as of this encounter
--- OUTSIDE RECORDS SUMMARY | 2023-09-26 04:18 | External Medical Summary | Summary of Care ---
Author Name Unknown Organization [facility] Address [address] [place] [address] Phone [phone] Care Team Providers Care Assignment Desk Assistant Name Role Phone Ray Royal MD Primary Care Provider [phone] Encounter Details Date Type Department Care Team (Late st Contact Info) Description 09/25/2023 Telephone Hematology/Oncology Mary Jo Neisha Clifford [address] [place] [address] Teto Torrez MD [address] [place] [facility] [place] [address] Allergies No known active allergiesdocumented as of [...] Dehydration 08/09/2023 Food insecurity 06/05/2023 Overview: Per [facility] [employer] Protocol Urethral stricture 04/03/2023 Slow [...] mRNA, LNP-s, No Pre serve, 2-Dose Series (Saber Hacer) 02/23/2021,02/02/2021 HEP A - Hepatitis A (Adult > 18 yrs) 09/21/2020, 02/10/2020 Hepatitis B, 20+ yrs 09/21/2020,03/23/2020,02/09 Pneumococcal Conjugate Vacci ne, 20-valent ([id number]) 10/26/2022(Deferred: Patient Refused) Pneumococcal Polysaccharide PPV23 (Pneumovax) [...] Telephone Encounter - Dalia Montaño OSA - 09/25/2023 12:28 PM EDT Patient dropped off forms from [employer] that need filled out Forms placed into VFA bin at bowling or skating front desk clerk FY documented in this encounter Plan of Treatment Upcoming Encounters Date Type Department Care Team (Late st Contact Info) Description 09/26/2023 11:00 AM EDT Office Visit Family Medicine [address] [phone] Juaniat Vallejo [address] [place] [address] 09/27/2023 12:50 PM EDT Laboratory Laboratory Scenery Neisha Clifford [address] [place] [phone] Park, Lab Scenery [address] [place] [address] 09/27/2023 2:00 PM EDT Hem/Onc Treatment Hematology/Oncology Treatment, [place] 200 [facility], [place] [phone] Neisha, Chair 1 Hem Onc [facility] 200 [facility] [place], [place] [address] 10/04/2023 1:00 PM EDT Laboratory Laboratory [facility] [place] [address] [place], [place] [phone] Neisha, Lab [facility] 200 [address] [place], [place] [address] 10/04/2023 2:00 PM EDT Hem/Onc Treatment Hematology/Oncology Treatment, [place] 200 [facility], [place] [phone] 10/04/2023 2:00 PM EDT Office Visit Palliative Medicine [facility] [place] 200 [facility], [place] [phone] Shante Prado MD 400 [facility] [place] [address] 10/10/2023 12:45 PM EDT Imaging Radiology [address], [place] 132 [facility] [address] 10/19/2023 10:30 AM EDT Laboratory Laboratory [facility] Neisha Clifford 200 Tisha [address] [place], [place] [phone] Neisha, Lab [facility] 200 [address] [place], [place] [address] 10/19/2023 11:00 AM EDT Office Visit Hematology/Oncology [facility] [place] [address] [place], [place] [phone] Rachel Marina CRNP 400 [place], [place] [phone] 10/19/2023 11:30 AM EDT [facility] 200 [facility], [place] [address] Neisha, Chair 8 Hem Onc [place]en[place] [address] [place] [address] 10/26/2023 12:50 PM EDT Laboratory Laboratory [facility] [place] [address] [place] [phone] Neisha, Lab [facility] 200 [facility] [place] [address] 10/26/2023 2:00 PM EDT Hem[facility] 200 [facility] [phone] Neisha, Chair 9 Hem Onc Scenery 200 [facility] [place] [address] 11/15/2023 11:30 AM EDT Office Visit Urology, [facility] 132 [facility] [place] [address] Adolfo Key MD [address] [place] [address] [place] [address] Scheduled Procedures Name Priority Associated [...] this encounter Medical Devices Implanted Type Area Recruiter Account Manager Device Identifier Shelf Expiration Date Model / Serial / Lot Port Implant W/8f Poly Cath - [id number] Implanted:Qty : 1 on 12/01/2022 by Brad Cerda DO at OR [facility] Right: Chest CR BARD : PERIPHERAL VASCULAR [id number] 02/24/2024 [id number] / / [id number] System Urolift - [id number] Implanted:Qty : 6 on 05/31/2023 by Adolfo Key MD at OR [facility] [employer] 09/01/2023 [id number] / / [id number] Description:prostate documented as of this encounter Advance Directives Documents on File Type Date Recorded Patient Heating And Ventilating Worker Expl anation POLST 07/13/2023 4:08 PM [...] Discussed due to patient's condition Care Teams Assignment Desk Assistant Relationship Specialty Start Date End Date Ray Royal MD [address] [place] [address] [place] [address] PCP - General Family Medicine 10/22/18 documented as of this encounter
--- OUTSIDE RECORDS SUMMARY | 2023-09-26 04:19 | External Medical Summary | Summary of Care ---
Author Name Unknown Organization [facility] Address [address] [place] [address] Phone [phone] Care Team Providers Care Vending Machine Servicer Name Role Phone Ray Royal MD Primary Care Provider [phone] Reason for Visit * Reason Onset Date Comments Advice 09/19/2023 ozzie Encounter Details Date Type Department Care Team (Late st Contact Info) Description 09/19/2023 Telephone Hematology/Oncology [facility] [address] [place] [address] Services, Scheduling [address] [place] [address] Advice (ozzie) Allergies No known active allergiesdocumented as of this encounter (statuses as of 09/20/2023) Medications Medication Sig Dispensed Refills Start Date [...] as of this encounter (statuses as of 09/20/2023) Active Problems Problem Noted Date Diagnosed Date [...] as of this encounter (statuses as of 09/20/2023) Immunizations Name Administration Dates Next Due COVID-19 mRNA, LNP-s, No Pre serve, 2-Dose Series (Apprema) 02/23/2021,02/02/2021 HEP A - Hepatitis A (Adult > 18 yrs) 09/21/2020, 02/10/2020 Hepatitis B, 20+ yrs 09/21/2020,03/23/2020,02/09 Pneumococcal Conjugate Vacci ne, 20-valent ([id number]) 10/26/2022(Deferred: Patient Refused) Pneumococcal Polysaccharide PPV23 (Pneumovax) [...] Dr. Varun manrique, patient admitted to [facility] yesterday. * Telephone Encounter - Benson Cisneros RN - 09/19/2023 1:41 PM EDT Called patient, he states he is feeling terrible, abdomen, arms, legs are swollen. Home health nurse was at the house and they had called the ambulance to come get him. Advised if the ambulance can, to take him to [facility]. He verbalized understanding. Dr. Varun manrique * [...] Description 09/27/2023 12:50 PM EDT Laboratory Laboratory [place] [address] [address] [place] [phone] Neisha, Lab [facility] [address] [facility] [place] [address] 09/27/2023 2:00 PM EDT Hem/Onc Treatment Hematology/Oncology Treatment, [address] [phone] Neisha, Chair 1 Hem Onc [address] [place] [address] 10/04/2023 1:00 PM EDT Laboratory Laboratory [facility] [place] [address] [place] [phone] Neisha, Lab [facility] [address] [facility] [place] [address] 10/04/2023 2:00 PM EDT Hem/Onc Treatment Hematology/Oncology Treatment, [address] [phone] 10/04/2023 2:00 PM EDT Office Visit Palliative Medicine [address] [phone] Shante Prado MD [address] [place] [address] [place] [address] 10/10/2023 12:45 PM EDT Imaging Radiology [address], [place] 132 [facility] [place] [address] 10/19/2023 10:30 AM EDT Laboratory Laboratory [place] [address] [place], [place] [phone] Neisha, Lab [place]en[place] [address] [facility], [place] [address] 10/19/2023 11:00 AM EDT Office Visit Hematology/Oncology [facility] [place] [address] [place] [phone] Rachel Marina CRNP 400 [facility] [place] [phone] 10/19/2023 11:30 AM EDT Hem/Onc Treatment Hematology/Oncology Treatment, [place] 200 [facility], [place] [phone] Neisha, Chair 11 Hem Onc [place] 200 [facility] [place] [address] 10/26/2023 12:50 PM EDT Laboratory Laboratory [facility] [place] [address] [place] [phone] Neisha, Lab [facility] 200 [facility] [place], [place] [address] 10/26/2023 2:00 PM EDT Hem/Onc Treatment Hematology/Oncology [address], [place] [phone] Neisha, Chair 9 Hem Onc [place] 200 [facility] [place] [address] 11/15/2023 11:30 AM EDT Office Visit Urology, [facility] 132 [facility] [place] [address] Adolfo Key MD 27 [facility] 270 [place] [address] Scheduled Procedures [...] this encounter Medical Devices Implanted Type Area Cloth Measurer Device Identifier Shelf Expiration Date Model / Serial / Lot Port Implant W/8f Poly Cath - [id number] Implanted:Qty : 1 on 12/01/2022 by Brad Cerda DO at OR [facility] Right: Chest CR BARD : PERIPHERAL VASCULAR [id number] 02/24/2024 [id number] / / [id number] System Urolift - [id number] Implanted:Qty : 6 on 05/31/2023 by Adolfo Key MD at OR [facility] [employer] 09/01/2023 [id number] / / [id number] Description:prostate documented as of this encounter Advance Directives Documents on File Type Date Recorded 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
--- OUTSIDE RECORDS SUMMARY | 2023-09-26 04:19 | External Medical Summary | Summary of Care ---
Author Name Unknown Organization [facility] Address [address] [place] [address] Phone [phone] Care Team Providers Care Stab Setter And Driller Name Role Phone Ray Royal MD Primary Care Provider [phone] Encounter Details Date Type Department Care Team (Late st Contact Info) Description 06/21/2023 Telephone Hematology/Oncology Treatment, [place] [address] [place] [address] Teto Torrez MD 200 [place] [address] Allergies No known active allergiesdocumented as of [...] 6 Tablet 0 3 06/27/19 24 Discontinued Hospital, Clinic, or Other Facility Administered Medication Ordered Dose Route Frequency Start Date End Date Status Fluorouracil (5-Fu) 6,100 mg in NSS 230 mL infusion 6100 mg IV CONTINUOUS 06/20/2023 06/22/2023 Discontinued documented as of this encounter (statuses [...] yrs 09/21/2020,03/23/2020,02/09 Pneumococcal Conjugate Vacci ne, 20-valent ([id number]) 10/26/2022(Deferred: Patient Refused) Pneumococcal Polysaccharide PPV23 (Pneumovax) [...] Telephone Encounter - Benson Cisneros RN - 06/22/2023 8:58 AM EST Called and spoke to patient. Unfortunately due to the holiday our schedule next week is full. This was explained to the patient. Advised that if we have a cancellation for next week we would be happyto schedule him for the make up treatment, otherwise he has a PET 07/03, labs 07/04, and follow up/treatment scheduled on 07/05. I reminded patient of these dates and times which he is aware. Scheduling/NS- If we have a cancellation for next week can we please see if we can have patient make-up his missed treatment. He will need a 3 hr appt "FOLFIRI" (Shan). Thank you! * Telephone Encounter - Elham Mcdowell RN - 06/21/2023 3:20 PM EST Patient did not show for his scheduled FOLFIRI treatment today at 1pm. Patient just completed 12 cycles FOLFIRINOX and now Oxaliplatin is removed, and patient is to receive FOLFIRI at this time, for now. Patient did have labs done yesterday and labs were okay for tx. Patient was scheduled at 1pm, RN contacted patient at 1:45pm to see if patient was on his way. Patient says he is 1 hour away at [facility] and completely forgot/did not know he has an appointment today for treatment. There would not be enough time for patient to drive in for treatment at this point in the day. Due to the holiday next week, the schedule is very tight for a FOLFIRI treatment on Monday and Monday. Patient does have a scan scheduled for 07/03 and f/u with Dr. Torrez 07/05, and would be due forhis next treatment that day, which is already scheduled. Dr. Salas/Dr. Torrez: Would you like patient to return next week since he forgot about his treatmenttoday, or would we be okay to have patient return 07/05 for his next treatment when he comes for hisappointment with Dr. Torrez? NS: TONY, bealison plan will need adjusted. Scheduling: Please ensure the outcome/decision with patient's treatment schedule will be communicated to patient. documented in this encounter Plan of Treatment Upcoming Encounters Date Type Department Care Team (Late st Contact Info) Description 09/27/2023 12:50 PM EDT Laboratory Laboratory [facility] 200 [facility] [place] [phone] Neisha, Lab [address] [place] [address] 09/27/2023 2:00 PM EDT Hem/Onc Treatment Hematology/Oncology Treatment, [address] [phone] Neisha, Chair 1 Hem Onc [address] [place] [address] 10/04/2023 1:00 PM EDT Laboratory Laboratory [facility] [place] 200 [facility] [place] [address] Neisha, Lab [facility] 200 [facility] [place] [address] 10/04/2023 2:00 PM EDT Hem/Onc Treatment Hematology/Oncology Treatment, [address] [phone] 10/04/2023 2:00 PM EDT Office Visit Palliative Medicine [facility] [address] [phone] Shante Prado MD [address] [place] [address] [place] [phone] 10/10/2023 12:45 PM EDT Imaging Radiology [address], [place] 132 [facility] [address] 10/19/2023 10:30 AM EDT Laboratory Laboratory [facility] [place] [address] [place] [phone] Neisha, Lab [place] [address] [place] [address] 10/19/2023 11:00 AM EDT Office Visit Hematology/Oncology [facility] [place] [address] [place] [phone] Rachel Marina CRNP 400 [facility] [place] [phone] 10/19/2023 11:30 AM EDT Hem/Onc Treatment Hematology/Oncology Treatment, [place] 200 [facility], [place] [phone] Neisha, Chair 11 Hem Onc [place] 200 [facility] [place] [address] 10/26/2023 12:50 PM EDT Laboratory Laboratory [facility] [place] [address] [place] [phone] Neisha, Lab [facility] 200 [facility] [place], [place] [address] 10/26/2023 2:00 PM EDT Hem/Onc Treatment Hematology/Oncology Treatment, [address], [place] [phone] Neisha, Chair 9 Hem Onc [place] 200 [facility] [place], [place] [address] 11/15/2023 11:30 AM EDT Office Visit Urology, [facility] 132 [facility] [address] Adolfo Key MD [address] [place] [address] [place] [address] Scheduled Procedures Name Priority Associated Diagnoses Date/Ti [...] this encounter Medical Devices Implanted Type Area Manufacturing Technology Analyst Device Identifier Shelf Expiration Date Model / Serial / Lot Port Implant W/8f Poly Cath - [id number] Implanted:Qty : 1 on 12/01/2022 by Brad Cerda DO at OR [facility] Right: Chest CR BARD : PERIPHERAL VASCULAR [id number] 02/24/2024 [id number] / / [id number] System Urolift - [id number] Implanted:Qty : 6 on 05/31/2023 by Adolfo Key MD at OR [facility] [employer] 09/01/2023 [id number] / / [id number] Description:prostate documented as of this encounter Advance Directives Documents on File Type Date Recorded 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
[2023-09-26] MEDS: PANTOprazole 40 MG TAB PO SCH (05:43)
--- NOTE | 2023-09-26 06:18 | Ultrasound Report ---
Exam(s): US VENOUS BILATERAL LOWER EXTREMITIES EXAM: US Duplex Bilateral Lower Extremities Veins CLINICAL HISTORY: Reason for exam: b/l lower ex edema and pain. dvt?. TECHNIQUE: Real-time duplex ultrasound scan of the bilateral lower extremity veins integrating B-mode two-dimensional vascular structure, Doppler spectral analysis, color flow Doppler imaging and compression. COMPARISON: No relevant prior studies available. FINDINGS: Right deep veins: Unremarkable. No DVT in the right common femoral, femoral, proximal deep femoral or popliteal veins. The veins demonstrate normal color flow, are normally compressible, with normal phasic flow and/or augmentation response. Right superficial veins: Unremarkable. No thrombus in the visualized right great saphenous vein. Left deep veins: Unremarkable. No DVT in the left common femoral, femoral, proximal deep femoral or popliteal veins. The veins demonstrate normal color flow, are normally compressible, with normal phasic flow and/or augmentation response. Left superficial veins: Unremarkable. No thrombus in the visualized left great saphenous vein. IMPRESSION: No evidence of deep venous thrombosis Electronically signed by: Gm Smith MD 09/26/23 06:17 AM
--- OUTSIDE RECORDS SUMMARY | 2023-09-26 06:51 | External Medical Summary | Summary of Care ---
Author Name Unknown Organization [facility] Address [address] [place] [address] Phone [phone] Care Team Providers Care Sys Dir Name Role Phone Ray Royal MD Primary Care Provider [phone] Reason for Visit * Reason Onset Date Comments Forms Request 09/25/2023 [facility] Encounter Details Date Type Department Care Team (Late st Contact Info) Description 09/25/2023 Telephone Hematology/Oncology [facility] [address] [place] [address] Teto Torrez MD [address] [facility] [address] Forms Request ([facility]) Allergies No known active allergiesdocumented as of [...] the morning. 255 g 0 08/09/2023 Active Lactulose 10 GM/15ML Oral Solution (Constulose)Indicat ions:Adenocarcinoma of pancreas (HCC),Metastasis to liver (HCC),Hepatic encephalopathy (HCC) Take 30 mL by mouth in the morning. 480 mL 1 09/08/2023 Active Furosemide 20 MG Oral Tablet (Lasix)Indications: Adenocarcinoma of pancreas (HCC),Metastasis to liver (HCC),Bilateral leg edema Take 1 Tablet by mouth in the morning. 30 Tablet 2 09/14/2023 Active oxyCODONE HCl 10 MG Oral Tablet (Roxicodone)Indicat ions:Cancer related pain Take 1 Tablet by mouth every 4 hours as needed for Pain, Severe. 60 Tablet 0 09/06/2023 Discontinue d(Refill) documented as of this encounter [...] mRNA, LNP-s, No Pre serve, 2-Dose Series ([employer]) 02/23/2021,02/02/2021 HEP A - Hepatitis A (Adult > 18 yrs) 09/21/2020, 02/10/2020 Hepatitis B, 20+ yrs 09/21/2020,03/23/2020,02/09 Pneumococcal Conjugate Vacci ne, 20-valent ([id number]) 10/26/2022(Deferred: Patient Refused) Pneumococcal Polysaccharide PPV23 (Pneumovax) [...] Telephone Encounter - Anabell Marroquin LPN - 09/25/2023 2:13 PM EDT Form completed and awaiting provider signature. * Telephone Encounter - Dalia Montaño OSA - 09/25/2023 12:28 PM EDT Patient dropped off forms from [employer] that need filled out Forms placed into aleksandra/Digital [employer] at front end specialist FYI documented in this encounter Plan of Treatment Upcoming Encounters Date Type Department Care Team (Late st Contact Info) Description 09/26/2023 11:00 AM EDT Office Visit Family Medicine [address] [phone] Juanita Vallejo, [address] [place] [address] 09/27/2023 12:50 PM EDT Laboratory Laboratory [facility] [address] [place] [phone] Neisha, Lab [place] [facility] [address] [place] [address] 09/27/2023 2:00 PM EDT Hem/Onc Treatment Hematology/Oncology Treatment, [place] 200 [facility] [phone] Neisha, Chair 1 Hem On[address] [place] [address] 10/04/2023 1:00 PM EDT Laboratory Laboratory [facility] [place] [address] [place] [phone] Neisha, Lab [facility] 200 [facility] [place] [address] 10/04/2023 2:00 PM EDT Hem/Onc Treatment Hematology/Oncology Treatment, [address] [phone] 10/04/2023 2:00 PM EDT Office Visit Palliative Medicine [facility] 200 [facility] [phone] Shante Prado MD [address] [place] [address] [place] [address] 10/10/2023 12:45 PM EDT Imaging Radiology [address] [place] [address] 10/12/2023 11:00 AM EDT Imaging Radiology [address] [place] [address] 10/19/2023 10:30 AM EDT Laboratory Laboratory [facility] [address] [place] [phone] Neisha, Lab [place] [facility] [address] [place] [address] 10/19/2023 11:00 AM EDT Office Visit Hematology/Oncology [facility] [place] [address] [place] [address] Rachel Marina CRNP 400 [facility] [place] [address] 10/19/2023 11:30 AM EDT Hem/Onc Treatment Hematology/Oncology Treatment, [place] 200 [facility] [phone] Neisha, Chair 8 Hem Onc [place] [facility] 200 [facility] [place] [address] 10/26/2023 12:50 PM EDT Laboratory Laboratory [facility] [place] [address] [place] [phone] Neisha, Lab [place] [facility] 200 [place] [facility] [place] [address] 10/26/2023 2:00 PM EDT Hem/Onc Treatment Hematology/Oncology [address] [phone] Neisha, Chair 9 Hem Onc [place] [facility] 200 [facility] [place] [address] 11/15/2023 11:30 AM EDT Office Visit Urology, [facility] 132 [facility] [place] [address] Adolfo Key MD [facility] 270 [place] [address] Scheduled Procedures [...] this encounter Medical Devices Implanted Type Area Coining Press Operator Device Identifier Shelf Expiration Date Model / Serial / Lot Port Implant W/8f Poly Cath - [id number] Implanted:Qty : 1 on 12/01/2022 by Brad Cerda DO at OR [facility] Right: Chest CR BARD : PERIPHERAL VASCULAR [id number] 02/24/2024 [id number] / / [id number] System Urolift - [id number] Implanted:Qty : 6 on 05/31/2023 by Adolfo Key MD at OR [facility] [employer] 09/01/2023 [id number] / / [id number] Description:prostate documented as of this encounter Advance Directives Documents on File Type Date Recorded 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
--- OUTSIDE RECORDS SUMMARY | 2023-09-26 06:51 | External Medical Summary | Summary of Care ---
Author Name Unknown Organization [facility] Address [address] [place] [address] Phone [phone] Care Team Providers Care Compensation Advisor Name Role Phone Ray Royal MD Primary Care Provider [phone] Reason for Visit * Reason Onset Date Comments Medication Refill 09/22/2023 Encounter Details Date Type Department Care Team (Late st Contact Info) Description 09/22/2023 Refill Palliative Medicine [facility] [address] [place] [address] Shante Prado MD [address] [place] [id number] Cancer related pain Allergies No known [...] 4 hours as needed for Pain, Severe. Continued Script 60 Tablet 0 09/25/2023 Active oxyCODONE HCl 10 MG Oral Tablet [...] mRNA, LNP-s, No Pre serve, 2-Dose Series ([employer]) 02/23/2021,02/02/2021 HEP A - Hepatitis A (Adult > 18 yrs) 09/21/2020, 02/10/2020 Hepatitis B, 20+ yrs 09/21/2020,03/23/2020,02/09 Pneumococcal Conjugate Vacci ne, 20-valent ([id number]) 10/26/2022(Deferred: Patient Refused) Pneumococcal Polysaccharide PPV23 (Pneumovax) [...] Miscellaneous Notes * Telephone Encounter - Naheed Nance PA-C - 09/25/2023 3:18 PM EDTSigned Prescriptions: Disp Refills oxyCODONE HCl 10 MG Oral Tablet (Roxicodon*60 Tab*0 Sig: Take 1 Tablet by mouth every 4 hours as needed for Pain, Severe. Continued ScriptAuthorizing Provider: NAHEED NANCE * Telephone Encounter - Naheed Nance PA-C - 09/25/2023 3:17 PM EDT I have reviewed the patients controlled substance dispensing history in the Prescription Drug Monitoring Program in compliance with the [facility] regulations before prescribing a controlled substance. * Telephone Encounter - Kaylyn Haney [facility] - 09/23/2023 12:34 PM EDT Pending Prescriptions: Disp Refills oxyCODONE HCl 10 MG Oral Tablet (Roxicodon*60 Tab*0 Sig: Take 1 Tablet by mouth every 4 hours as needed for Pain, Severe. * Telephone Encounter - Starla Marroquin, research agricultural engineer - 09/22/2023 4:08 PM EDT Did you pend patient's preferred pharmacy and medication before forwarding?yes Pharmacy: [facility], [address] [place] Pending Prescriptions: Disp Refills oxyCODONE HCl 10 MG Oral Tablet (Roxicodo*60 Tab*0 Sig: Take 1 Tablet by mouth every 4 hours as needed for Pain, Severe. Last Visit: 04/13/2023 (in office), Visit date not found (telemedicine) Next Visit: 09/26/2023 If no future appointments scheduled, and last appointment is greater than a year ago, please schedule patient for a follow-up appointment Last date the medication was ordered: 09/06/23 Is this request for a controlled substance?Yes, What was the last refill date 09/06/23 w/ quantity 60 Tablet and dosage 10 MG and Urine Drug Screen Not completed Urine Drug Screen:No results found for this or any previous visit. Patient Phone Numbers Labs: Lab Results Component Value Date/Time CREAT 0.9 09/13/2023 11:59 AM CREAT 0.81 09/01/2023 12:00 AM CREAT 1.0 02/10/2020 12:47 PM POTASSIUM 4.0 09/13/2023 11:59 AM POTASSIUM 4.0 09/01/2023 12:00 AM POTASSIUM 4.3 02/10/2020 12:47 PM TSH 2.03 09/01/2023 08:27 AM LDLCALC 118 (A) 11/24/2022 12:00 AM LDLCALC 110 10/22/2018 02:03 PM ALT 32 09/13/2023 11:59 AM ALT 116 (H) 02/10/2020 12:47 PM documented in this encounter Plan of Treatment Upcoming Encounters Date Type Department Care Team (Late st Contact Info) Description 09/26/2023 11:00 AM EDT Office Visit Family Medicine [address] [phone] [address] [place] [address] 09/27/2023 12:50 PM EDT Laboratory Laboratory [facility] Ne[place] [address] [address] [place] [phone] Neisha Lab [address] [place] [address] 09/27/2023 2:00 PM EDT Hem/Onc Treatment Hematology/Oncology Treatment, [place] 200 [facility] [place] [phone] Neisha, Chair 1 Hem Onc [address] [place] [address] 10/04/2023 1:00 PM EDT Laboratory Laboratory [facility] Neisha [place] [address] [place] [phone] Patricio Driver [facility] 200 [facility] [place] [address] 10/04/2023 2:00 PM EDT Hem/Onc Treatment Hematology/Oncology [facility] 200 [facility] [phone] 10/04/2023 2:00 PM EDT Office Visit Palliative Medicine [facility] [place] 200 [facility] [phone] Shante Prado MD [address] [place] [address] 10/10/2023 12:45 PM EDT Imaging Radiology [address] 132 [facility] [place] [address] 10/12/2023 11:00 AM EDT Imaging Radiology [address] [place] [address] 10/19/2023 10:30 AM EDT Laboratory Laboratory [facility] Neisha [place] 200 [facility] [place] [phone] Patricio Driver [address] [place] [facility] [place] [address] 10/19/2023 11:00 AM EDT Office Visit Hematology/Oncology [facility] Neisha [place] [address] [place] [phone] Rachel Marina CRNP [address] [place] [address] 10/19/2023 11:30 AM EDT Hem/Onc Treatment Hematology/Oncology Treatment, [place] 200 [facility] [phone] Neisha, Chair 8 Hem Onc [facility] [address] [place] [address] 10/26/2023 12:50 PM EDT Laboratory Laboratory [facility] [place] [address] [place] [phone] Neisha, Lab [address] 200 [facility] [place] [address] 10/26/2023 2:00 PM EDT Hem/Onc Treatment Hematology/Oncology Treatment, [place] [address] [place] [phone] Neisha, Chair 9 Hem Onc [place] [address] [place] [address] 11/15/2023 11:30 AM EDT Office Visit Urology, [facility] 132 [facility] [place] [phone] Adolfo Key MD [address] [place] [...] encounter Medical Devices Implanted Type Area Manager Ui Device Identifier Shelf Expiration Date Model / Serial / Lot Port Implant W/8f Poly Cath - [id number] Implanted:Qty : 1 on 12/01/2022 by Brad Cerda DO at OR [facility] Right: Chest CR BARD : PERIPHERAL VASCULAR [id number] 02/24/2024 [id number] / / [id number] System Urolift - [id number] Implanted:Qty : 6 on 05/31/2023 by Adolfo Key MD at OR [facility] [employer] 09/01/2023 [id number] / / [id number] Description:prostate documented as of this encounter Visit Diagnoses Diagnosis Cancer related pain Neoplasm related pain (acute) (chronic) documented in this encounter Advance Directives Documents on File Type Date Recorded 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
--- OUTSIDE RECORDS SUMMARY | 2023-09-26 06:51 | External Medical Summary | Summary of Care ---
Author Name Unknown Organization [facility] Address [address] [place] [address] Phone [phone] Care Team Providers Care Psychiatric Attendant Name Role Phone Ray Royal MD Primary Care Provider [phone] Encounter Details Date Type Department Care Team (Late st Contact Info) Description 09/25/2023 Telephone Hematology/Oncology [place] Neisha [place] [address] [place] [phone] Teto Torrez MD [address] [place] [address] Allergies No known active allergiesdocumented as of [...] Dehydration 08/09/2023 Food insecurity 06/05/2023 Overview: Per [facility] Protocol Urethral stricture 04/03/2023 Slow [...] mRNA, LNP-s, No Pre serve, 2-Dose Series ([employer]) 02/23/2021,02/02/2021 HEP A - Hepatitis A (Adult > 18 yrs) 09/21/2020, 02/10/2020 Hepatitis B, 20+ yrs 09/21/2020,03/23/2020,02/09 Pneumococcal Conjugate Vacci ne, 20-valent ([id number]) 10/26/2022(Deferred: Patient Refused) Pneumococcal Polysaccharide PPV23 (Pneumovax) [...] LPN - 09/25/2023 2:13 PM EDT Form picked up from bin * Telephone Encounter - Dalia Montaño OSA - 09/25/2023 12:28 PM EDT Patient dropped off forms from [employer] that need filled out Forms placed into [employer] at first front ventilator FYI documented in this encounter Plan of Treatment Upcoming Encounters Date Type Department Care Team (Late st Contact Info) Description 09/26/2023 11:00 AM EDT Office Visit Family Medicine [address] [place] [phone] Juanita Vallejo CRNP [address] [place] [address] [place] [address] 09/27/2023 12:50 PM EDT Laboratory Laboratory [facility] [address] [place] [phone] Neisha, Lab [facility] [address] [facility] [place] [address] 09/27/2023 2:00 PM EDT Hem/Onc Treatment Hematology/Oncology [facility], [place] [facility] [phone] Neisha, Chair 1 Hem Onc [facility] 200 [facility] [place] [address] 10/04/2023 1:00 PM EDT Laboratory Laboratory [facility] [place] [address] [phone] Neisha, Lab [address] [address] 10/04/2023 2:00 PM EDT [facility] [phone] 10/04/2023 2:00 PM EDT Office Visit Palliative Medicine [facility] [place] 200 [facility] [phone] Shante Prdao MD [address] [place] [address] [place] [address] 10/10/2023 12:45 PM EDT Imaging Radiology [address] 132 [facility] [place] [address] 10/12/2023 11:00 AM EDT Imaging Radiology [address] [place] [address] 10/19/2023 10:30 AM EDT Laboratory Laboratory [facility] [address] [place] [phone] Neisha, Lab [facility] [address] [address] 10/19/2023 11:00 AM EDT Office Visit Hematology/Oncology [facility] 200 [facility] [place] [phone] Rachel Marina CRNP 400 [facility] [place] [phone] 10/19/2023 11:30 AM EDT Hem[facility] 200 [facility], [place] [phone] Neisha, Chair 8 Hem Onc [address] [place] [address] 10/26/2023 12:50 PM EDT Laboratory Laboratory [facility] 200 [facility] [place] [phone] Neisha, Lab [address] [facility] [place] [address] 10/26/2023 2:00 PM EDT Hem[facility] 200 [facility], [place] [phone] Neisha, Chair 9 Hem Onc [facility] 200 [facility] [place] [place] [address] 11/15/2023 11:30 AM EDT Office Visit Urology, [facility] 132 [facility] [place] [address] Adolfo Key MD [address] [address] [place] [phone] Scheduled Procedures Name Priority Associated Diagnoses Date/Ti [...] this encounter Medical Devices Implanted Type Area Monitor And Storage Bin Tender Device Identifier Shelf Expiration Date Model / Serial / Lot Port Implant W/8f Poly Cath - [id number] Implanted:Qty : 1 on 12/01/2022 by Brad Cerda, DO at OR [facility] Right: Chest CR BARD : PERIPHERAL VASCULAR [id number] 02/24/2024 [id number] / / [id number] System Urolift - [id number] Implanted:Qty : 6 on 05/31/2023 by Adolfo Key MD at OR [facility] [employer] 09/01/2023 [id number] / / [id number] Description:prostate documented as of this encounter Advance Directives Documents on File Type Date Recorded Patient Councilman Expl anation POLST 07/13/2023 4:08 PM POLST [...] due to patient's condition Care Teams Psychiatric Attendant Relationship Specialty Start Date End Date Ray Royal MD [address] [place] [address] [place] [phone] PCP - General Family Medicine 10/22/18 documented as of this encounter
[2023-09-26 07:18] LABS: Calcium 7.6 mg/dl (8.6-10.3); Creatinine Clr Calc Pharmacy 72.6 ml/min; Est GFR (African American) 57.4 ml/min; Est GFR (Non-African American) 49.5 ml/min; Magnesium 1.9 mg/dl (1.7-2.4); Potassium 4.9 mmol/L (3.5-5.1)
[2023-09-26 08:04] LABS: Anisocytosis Present; Basophils # (auto) 0.01 K/uL (0.00-0.20); Basophils % (auto) 0.2 %; Eosinophils # (auto) 0.13 K/uL (0.00-0.50); Eosinophils % (auto) 2.4 %; Hematocrit (blood only) 27.1 % (42.0-52.0); Hemoglobin 8.8 g/dl (14.0-18.0); Immature Granulocytes # (auto) 0.06 K/uL (0.01-0.20); Immature Granulocytes % (auto) 1.1 %; Lymphocytes # (auto) 0.51 K/uL (1.20-3.40); Lymphocytes % (auto) 9.2 %; Mean Corpuscular Hemoglobin 32.7 pg (25.0-34.0); Mean Corpuscular Hgb Conc 32.5 g/dL (32.0-36.0); Mean Corpuscular Volume 100.7 fL (80.0-100.0); Monocytes # (auto) 0.75 K/uL (0.11-0.59); Monocytes % (auto) 13.6 %; Neutrophils # (auto) 4.07 K/uL (1.40-6.50); Neutrophils % (auto) 73.5 %; Ovalocytes 1+; Platelet Count 134 K/uL (130-400); Polychromasia 2+; RDW Coefficient of Variation 25.4 % (11.5-14.5); RDW Standard Deviation 91.7 fL (36.4-46.3); Red Blood Count 2.69 M/uL (4.70-6.10); Tear Drop Cells 2+; White Blood Count 5.53 K/ul (4.8-10.8)
[2023-09-26 08:49] LABS: Partial Thromboplastin Ratio 1.5; Partial Thromboplastin Time 42 Seconds (21-31)
[2023-09-26] MEDS ORDERED: HEPARIN 100 UNIT/ML 5ML FLUSH FLUSH PRN (08:53)
[2023-09-26] MEDS ORDERED: lisinopril 10 MG TAB PO SCH (09:00)
[2023-09-26] MEDS ORDERED: POTASSIUM CHLORIDE 10 MEQ TABCR PO SCH (09:00)
[2023-09-26] MEDS: ASPIRIN 81 MG ECTAB PO SCH (09:10)
[2023-09-26] MEDS: FINASTERIDE 5 MG TAB PO SCH (09:11)
[2023-09-26] MEDS: BACLOFEN 10 MG TAB PO SCH ×2 (09:11→20:46)
[2023-09-26] MEDS: MAGNESIUM OXIDE 400 MG TAB PO SCH (09:11)
[2023-09-26] MEDS: dilTIAZem HCL 120 MG CAPCR PO SCH (09:11)
[2023-09-26] MEDS: allopurinoL 300 MG TAB PO SCH (09:11)
[2023-09-26] MEDS: TAMSULOSIN HCL 0.4 MG CAP PO SCH (09:12)
[2023-09-26] MEDS: ALBUMIN 25% 25 GM/100 ML VIAL IV SCH (09:26)
--- NOTE | 2023-09-26 12:34 | Nephrology Consultation ---
Date of Consultation September 26, 2023 Assessment & Plan (1) ALL (acute kidney injury): Nonoliguric stage II acute kidney injury in the setting of liver metastases; biliary obstruction ruled out 09/19; do worry his renal function is worsening in conjunction w/ progressive liver dysfunction. he's been hemodynamically stable. no evidence of infection in urine but definite inflammation, evidence of liver disease and dehydration -hold lasix, K for now Agree with trial of albumin 25% IV q8h x 48 hrs Daily BMP Daily standing weight (2) Ascites: Daily standing weight strict I/O >may need to consider FR but defer for now History of Present Illness Reason for Consultation: ALL plus ascites Requesting Physician: Dr Petty Attending Physician: Edward Petty MD History of Present Illness 63-year-old male whom I am asked to evaluate for acute kidney injury plus ascites was admitted yesterday evening for management of worsening abdominal distention and increasing lower extremity edema having failed outpatient management. Past medical history include pancreatic adenocarcinoma with liver metastases, hemochromatosis, portal hypertension with esophageal varices, gout, venous stasis dermatitis, osteoarthritis, ureteral stricture, splenic vein occlusion with collateral formation. Workup of elevated LFTs at recent admission included MRCP showing no biliary ductal dilatation. He is status post 11 cycles of modified FOLFIRINOX chemotherapy and currently receiving single agent gemcitabine weekly x 2 followed by 1 week off. Last dose was 09/07. Also started on Lasix and lactulose earlier this year, though lactulose stopped at recent hospital d/c. He was recently admitted here September 18 to the with increased abdominal distention as well as 2 weeks of watery black diarrhea. He underwent a 1.6 L paracentesis on September 19. At hospital discharge, lactulose was stopped and he was started instead on loperamide. He takes Lasix 20 mg every morning. He also takes lisinopril and potassium supplements daily as well as allopurinol 300 mg daily. Creatinine at discharge was 0.6. His creatinine has been somewhat labile but runs generally 0.6-0.8. On presentation last evening, creatinine was 1.5 and is unchanged today. His lisinopril and potassium supplements were held on presentation. He was started on 25% albumin infusions every 8 hours and to so far received 1 of these. Urinalysis on presentation remarkable for 1+ bilirubin, calcium oxalate crystals, epithelial cells greater than 30, trace ketones, positive nitrites and leukocyte Estrace and no bacteria. His weight this am on standing scale was 121.4 kg. he is on a regular diet currently w/ no fluid limit. when I saw him midday he was having a hard time keeping his eyes open during our interview > he endorsed fatigue; denied uncontrolled pain, n/v, sob, palpitations or chest discomfort. did state edema and abd distension had been worsening. ongoing dry mouth since last CTX and drinks about 2L cranberry juice daily plus 16-32 oz water. Allergies Allergy/AdvReac Type Severity Reaction Status Date / Time No Known Allergies Allergy Verified 09/25/23 20:32 Home Medications Medication Instructions Recorded Confirmed Type allopurinol 300 mg tablet 300 mg PO QAM 05/02/22 09/25/23 History diltiazem HCl 120 mg capsule,24 120 mg PO DAILY 05/02/22 09/25/23 History hr,extended release lisinopril 10 mg tablet 10 mg PO DAILY 05/02/22 09/25/23 History finasteride 5 mg tablet 5 mg PO QAM 08/10/22 09/25/23 History omeprazole 20 mg capsule,delayed 20 mg PO DAILYBB 08/10/22 09/25/23 History release magnesium oxide 400 mg PO QAM 04/04/23 09/25/23 History ondansetron HCl 8 mg tablet 8 mg PO Q8 PRN Nausea 04/04/23 09/25/23 History potassium chloride 10 mEq 10 meq PO AMHS 04/04/23 09/25/23 History tablet,extended release silodosin 8 mg capsule 8 mg PO QAM 04/04/23 09/25/23 History baclofen 10 mg tablet 10 mg PO BID 08/18/23 09/25/23 History polyethylene glycol 3350 17 gram 17 g PO DAILY PRN Constipation 08/18/23 09/25/23 History oral powder packet (Miralax) sennosides 8.6 mg tablet (senna) 17.2 mg PO HS 08/18/23 09/25/23 History loperamide 2 mg capsule (Imodium 2 mg PO Q6H PRN loose stool #30 09/22/23 09/25/23 Rx A-D) caps oxycodone 10 mg tablet 10 mg PO Q8H PRN pain #20 tabs 09/23/23 09/25/23 Rx aspirin 81 mg tablet,delayed 81 mg PO DAILY 09/25/23 09/25/23 History release Patient History Medical History (Updated 09/25/23 @ 23:38 by Meliton Weiss DO) GERD (gastroesophageal reflux disease) Gout 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 Surgical History (Updated 09/26/23 @ 12:36 by Faiza Duncan MD, PhD) History of partial pancreatectomy laparascopic distal subtotal H/O colonoscopy S/P cystourethroscopy with dilation of urethral stricture Family History (Updated 09/26/23 @ 12:37 by Faiza Duncan MD, PhD) Mother Liver cirrhosis Father Myocardial infarction Social History Smoking Status: Never smoker Tobacco Type: Cigarettes Second Hand Exposure: No; Hx Alcohol Use: No Hx Substance Use: No Preferred Language: Peruvian Communication Ability: Effective Vortex Operator Required: No Beliefs That Will Affect Care: None marital status: Current Living Situation: Significant Other Other Information That Helps Us Care for You: No Feels Safe at Home: Yes Safety Concerns: Feels Safe At This Time Assistive Devices: None Review of Systems 2 Review of Systems: All systems reviewed & are unremarkable except as noted in HPI & below Physical Exam 2 Constitutional: well developed, + cachectic, + frail appearing and + lethargic; no acute distress Eyes: EOM intact bilaterally ENMT: Ears: no external ear abnormality Nose: no external nose abnormality Mouth: + dry oral mucous membranes Neck: no nuchal rigidity Respiratory: normal respiratory effort Auscultation: + diminished lung sounds and + crackles (L base) Cardiovascular: Rate/Rhythm: regular rate and regular rhythm Extremities: + edema (3+ BLE) Gastrointestinal (Abdomen): Inspection/Auscultation: + abdomen distended and normal bowel sounds Percussion/Palpation: abdomen soft and + fluid wave; abdomen nontender Musculoskeletal: Extremities: strength 5/5 throughout Skin: no rashes, warm and dry Neurologic: avila, fluent speech but quite limited d/t fatigue, no tremor Results & Data Vital Signs (Past 12 Hours) Vital Signs Temp Pulse Resp BP Pulse Ox O2 Del Method 09/26/23 11:27 36.3 C L 101 H 18 107/68 97 Room Air 09/26/23 08:08 36.6 C 91 H 18 117/67 96 Room Air 09/26/23 02:00 36.4 C L 95 H 18 117/63 97 Room Air 09/26/23 01:40 36.4 C L 95 H 18 117/63 97 Room Air Laboratory Results 09/26/23 06:31 09/26/23 06:31 INR 1.9 (was 1.1 in June 2023 and March 2023); transaminases, alk phos reviewed; albumin 2.5 Direct and total bilirubin are uptrending since June Diagnostic Findings Abdominal ultrasound: Moderate ascites Chest x-ray without acute cardiopulmonary process Bilateral lower extremity Dopplers showed no DVT
--- NOTE | 2023-09-26 14:56 | Hospitalist Progress Note ---
Date of Service September 26, 2023 Assessment & Plan (1) Ascites: Plan: 63-year-old male with past med significant for adenocarcinoma of pancreas with mets to the liver, idiopathic chronic gout, hemochromatosis, portal hypertension with esophageal varices, hypertension, venous stasis dermatitis of both lower extremities, ureteral stricture, osteoarthritis, presents to the hospital due to bilateral leg swelling and slight shortness of breath. Acute kidney injury Metastatic pancreatic cancer Elevated total bilirubin Ascites Patient was recently admitted for abdominal bloating, diarrhea. He underwent paracentesis on 09/20/2023 which did not show any acute finding. Diarrhea resolved after stopping lactulose. History of pancreatic tail adenocarcinoma with liver metastasis. Status post 11 cycles of modified FOLFIRINOX chemotherapy PET/CT done on June 2023 showed overall disease progression in the liver. Currently on single agent gemcitabine weekly x 2 followed by 1 week off. Last dose was September 05 Patient underwent MRCP last admission; no abnormality was found. Did not recommend any other intervention. Patient has significant bilateral edema, abdominal distention along with acute kidney injury Will start a trial of IV albumin. Nephrology consulted for comanagement for ALL Patient might need further paracentesis after improvement in ALL. Discussed goals of care with patient at bedside. Patient has been on treatment for metastatic pancreatic cancer; his recent PET/CT has shown progression of cancer. Patient has large burden of metastatic disease in his liver leading to elevation in bilirubin, liver enzymes and ascites. He had [id number] hospitalization. He developed acute kidney failure as well. Overall, he has poor prognosis. We discussed continuing medical management for the time being to see if they will be successful. If patient continues to decompensate; he wants to to be made comfortable. He does not want aggressive life prolonging measures including chest compressions, ventilator support. CODE STATUS has been changed to DNR/DNI I discussed this with his POA/brother([phone]); he is also in agreement. 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 difficile colitisC. difficile rule out last admission. No complaint of diarrhea History of gout Allopurinol History of hypertension Will hold lisinopril, Lasix Continue diltiazem with holding parameters BPH On Proscar GERD On omeprazole DVT prophylaxis Heparin Time spent evaluating patient, direct bedside care, chart review, placing orders, interpretation of diagnostic studies, discussion with consultants, patient, and family members, as well as other required patient management activities is 60-minutes Please note the above document was generated using voice recognition software. It may contain grammatical, syntax or spelling errors. Any formal questions or concerns about the content, text or information contained within the body of th is dictation should be directly addressed to the provider for clarification Admission and Anticipated Discharge Date Admission Date: September 25, 2023 Subjective Patient seen and examined at bedside. He reports that he has increasing swelling of his bilateral lower extremity, abdomen she is getting discharged. Denies any pain or discomfort. Vital signs are stable. Review of Systems Review of Systems: All systems reviewed & are unremarkable except as noted in Subjective Physical Exam Physical Exam: Constitutional: Awake, alert oriented x 3; not in distress. Respiratory: Bilateral vesicular breath sound Cardiovascular: RRR, no murmur, no edema Vessels: no JVD or carotid bruit Chest: normal inspection of chest Abdomen: Distended, nontender. Musculoskeletal: no cyanosis or clubbing, extremities motor strength 5/5. 2+ pitting edema present in bilateral lower extremity Skin: no rashes, warm and dry normal turgor Neurologic: PERRL, EOMI, accommodation nl, no face palsy, no dysarthria CN's II- XI intact bilaterally and moves all extremities Psychiatric: A+Ox3, euthymic affect Results & Data Results & Data Vital Signs (Past 12 Hours) Vital Signs Temp Pulse Resp BP Pulse Ox O2 Del Method 09/26/23 11:27 36.3 C L 101 H 18 107/68 97 Room Air 09/26/23 08:08 36.6 C 91 H 18 117/67 96 Room Air
[2023-09-26 15:44] LABS: Calcium 7.7 mg/dl (8.6-10.3); Creatinine Clr Calc Pharmacy 76.2 ml/min; Est GFR (African American) 60.8 ml/min; Est GFR (Non-African American) 52.5 ml/min; Potassium 4.5 mmol/L (3.5-5.1)
[2023-09-26] MEDS: oxyCODONE HCL IR 5 MG TAB (IMMEDIATE RELEASE) PO PRN (19:43)
[2023-09-26] MEDS: SENNA 8.6 MG TAB PO SCH (20:57)
[2023-09-26] MEDS: HEPARIN SOD 5,000 UNIT/0.5 ML VIAL SQ SCH (21:24)
--- NOTE | 2023-09-27 09:05 | Nephrology Progress Note ---
Date of Service September 27, 2023 Assessment & Plan Admission and Anticipated Discharge Date Admission Date: September 25, 2023 Subjective Assessment & Plan (1) ALL (acute kidney injury): This is new baseline renal function with Worsened liver status. renal function will continue to get worse in the coming days Unfortunately. 25%Albumin. one more day but will also do Iv lasix 40 q8h with it Lasix for Symptom relief as does have a lot of edema. Daily CMP and CBC (2) Ascites: Daily standing weight S---No new issues. he is weak and Appears to have Some Breathing problem also Physical Exam Constitutional: well developed, + cachectic, + frail appearing and + lethargic. no acute distress ENMT: dry oral mucous membranes Neck: no nuchal rigidity Respiratory: normal respiratory effort Auscultation: + diminished lung sounds and + crackles (L base) Cardiovascular: Rate/Rhythm: regular rate and regular rhythm Extremities: + edema (3+ BLE) Gastrointestinal (Abdomen): Inspection/Auscultation: + abdomen distended and normal bowel sounds Percussion/Palpation: abdomen soft and + fluid wave; abdomen nontender Musculoskeletal: Extremities: strength 5/5 throughout Skin: no rashes, warm and dry Neurologic: avila, fluent speech but quite limited d/t fatigue, no tremor Results & Data Vital Signs (Past 12 Hours) Vital Signs Temp Pulse Resp BP Pulse Ox O2 Del Method 09/27/23 08:15 36.5 C 117 H 18 160/70 H 99 Room Air 09/26/23 21:05 36.7 C 100 H 18 138/69 96 Room Air
[2023-09-27 09:53] LABS: Albumin Globulin Ratio 1.9 (0.9-2); BUN Creatinine Ratio 33.1 (10-20); Bilirubin,Total 4.8 mg/dl (0.2-1.0); Calcium 7.9 mg/dl (8.6-10.3); Creatinine Clr Calc Pharmacy 81.9 ml/min; Est GFR (African American) 66.4 ml/min; Est GFR (Non-African American) 57.3 ml/min; Globulin 1.6 gm/dl (2.5-4.0); Potassium 4.3 mmol/L (3.5-5.1); Total Protein 4.6 gm/dl (6.0-8.3)
[2023-09-27 10:06] LABS: Hematocrit (blood only) 24.5 % (42.0-52.0); Hemoglobin 8.1 g/dl (14.0-18.0); Mean Corpuscular Hemoglobin 33.2 pg (25.0-34.0); Mean Corpuscular Hgb Conc 33.1 g/dL (32.0-36.0); Mean Corpuscular Volume 100.4 fL (80.0-100.0); Mean Platelet Volume 11.6 fL (9.4-12.4); Platelet Count 177 K/uL (130-400); RDW Coefficient of Variation 26.4 % (11.5-14.5); RDW Standard Deviation 93.9 fL (36.4-46.3); Red Blood Count 2.44 M/uL (4.70-6.10); White Blood Count 4.57 K/ul (4.8-10.8)
[2023-09-27 10:22] LABS: Anisocytosis Present; Basophils # (auto) 0.01 K/uL (0.00-0.20); Basophils % (auto) 0.2 %; Eosinophils # (auto) 0.07 K/uL (0.00-0.50); Eosinophils % (auto) 1.5 %; Hypochromasia Present; Immature Granulocytes # (auto) 0.04 K/uL (0.01-0.20); Immature Granulocytes % (auto) 0.9 %; Lymphocytes # (auto) 0.39 K/uL (1.20-3.40); Lymphocytes % (auto) 8.5 %; Monocytes # (auto) 0.78 K/uL (0.11-0.59); Monocytes % (auto) 17.1 %; Neutrophils # (auto) 3.28 K/uL (1.40-6.50); Neutrophils % (auto) 71.8 %; Ovalocytes 1+; Tear Drop Cells 2+
[2023-09-27] MEDS: FUROSEMIDE 40 MG/4 ML VIAL IV SCH (11:23)
[2023-09-27] MEDS: HYDROmorphone INJ 0.5 MG/0.5 ML SYR IV PRN (13:55)
--- NOTE | 2023-09-27 15:08 | XRay Report ---
XR knee RT 3V HISTORY: 63 years-old Male fall acute pain of the right knee status post fall COMPARISON: None TECHNIQUE: 3 views of the right knee FINDINGS: Mild lateral and patellofemoral with moderate medial compartment osteoarthritis. Mild diffuse soft ti ssue swelling. There is no acute fracture, dislocation or osseous erosion. Probable trace joint effus ion. IMPRESSION: No acute fracture or dislocation. ACT 112: Negative or not required by law. The above report was generated using voice recognition software. It may contain grammatical, syntax o r spelling errors. Electronically signed by: Jose M Nichols M.D. 09/27/2023 3:07 PM
--- NOTE | 2023-09-27 15:10 | XRay Report ---
XR knee LT 3V, XR tibia fibula LT 2V CLINICAL HISTORY: fall TECHNIQUE: 2 views of the left knee and 2 views of the left tibia and fibula were obtained. Comparison: None available at the time of this dictation. FINDINGS: There is no evidence of an acute fracture. Degenerative changes are seen most prominent in the medial compartment. No joint effusion is seen. No soft tissue abnormality is seen. IMPRESSION: Degenerative changes without evidence of acute injury. ACT 112: Negative or not required by law. Electronically signed by: Marquis Pierson M.D. 09/27/2023 3:08 PM
--- NOTE | 2023-09-27 15:20 | XRay Report ---
XR hip CHARLIE 2v w pelvis HISTORY: 63 years-old Male fall, rt hip pain acute right hip pain status post fall COMPARISON: CT 09/19/2023 TECHNIQUE: AP view of the pelvis with 2 views of the bilateral hips FINDINGS: Minimal osteoarthritis of the hips. No acute fracture, dislocation or avascular necrosis. Brachythera py seeds of the prostate. IMPRESSION: No acute fracture or dislocation. ACT 112: Negative or not required by law. The above report was generated using voice recognition software. It may contain grammatical, syntax o r spelling errors. Electronically signed by: Jose M Nichols M.D. 09/27/2023 3:18 PM
--- NOTE | 2023-09-27 16:09 | XRay Report ---
RIGHT TIBIA AND FIBULA 2 VIEWS CLINICAL HISTORY: Fall. Right leg pain. FINDINGS: AP and crosstable lateral views of the right tibia and fibula are compared to study dated . The skeletal structures are osteopenic. The knee joint is excluded and will be reported sepa rately. There is no radiographic evidence of tibial and fibular fracture below the knee joint. The an kle joint is grossly maintained. An os trigonum is incidentally noted. Soft tissue swelling is noted throughout the calf. IMPRESSION: Soft tissue swelling with no fracture identified. Electronically signed by: Danial Morgan M.D. 09/27/2023 4:08 PM
[2023-09-27] MEDS: METOPROLOL TARTRATE 25 MG TAB PO ONE (17:05)
--- NOTE | 2023-09-27 17:47 | Hospitalist Progress Note ---
Date of Service September 27, 2023 Assessment & Plan (1) Ascites: Plan: 63-year-old male with past med significant for adenocarcinoma of pancreas with mets to the liver, idiopathic chronic gout, hemochromatosis, portal hypertension with esophageal varices, hypertension, venous stasis dermatitis of both lower extremities, ureteral stricture, osteoarthritis, presents to the hospital due to bilateral leg swelling and slight shortness of breath. Acute kidney injury Metastatic pancreatic cancer Elevated total bilirubin Ascites Patient was recently admitted for abdominal bloating, diarrhea. He underwent paracentesis on 09/20/2023 which did not show any acute finding. Diarrhea resolved after stopping lactulose. History of pancreatic tail adenocarcinoma with liver metastasis. Status post 11 cycles of modified FOLFIRINOX chemotherapy PET/CT done on June 2023 showed overall disease progression in the liver. Currently on single agent gemcitabine weekly x 2 followed by 1 week off. Last dose was September 05 Patient underwent MRCP last admission; no abnormality was found. Did not recommend any other intervention. Patient has significant bilateral edema, abdominal distention along with acute kidney injury on trial of IV albumin. Nephrology consulted for comanagement for ALL and volume overload. Pt being diuresed. Patient might need further paracentesis after improvement in ALL. Per prior attending - Discussed goals of care with patient at bedside. Patient has been on treatment for metastatic pancreatic cancer; his recent PET/CT has shown progression of cancer. Patient has large burden of metastatic disease in his liver leading to elevation in bilirubin, liver enzymes and ascites. He had [id number] hospitalization. He developed acute kidney failure as well. Overall, he has poor prognosis. We discussed continuing medical management for the time being to see if they will be successful. If patient continues to decompensate; he wants to to be made comfortable. He does not want aggressive life prolonging measures including chest compressions, ventilator support. CODE STATUS has been changed to DNR/DNI. I discussed this with his POA/brother([id number]); he is also in agreement. 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 difficile colitisC. difficile rule out last admission. No complaint of diarrhea History of gout Allopurinol History of hypertension Will hold lisinopril Continue diltiazem with holding parameters BPH On Proscar GERD On omeprazole DVT prophylaxis Heparin Please note the above document was generated using voice recognition software. It may contain grammatical, syntax or spelling errors. Any formal questions or concerns about the content, text or information contained within the body of this dictation should be directly addressed to the provider for clarification Admission and Anticipated Discharge Date Admission Date: September 25, 2023 Subjective Patient seen and examined at bedside. Denies any pain or discomfort. Reports eating okay and moving bowels 2-3 times a day. Vital signs are stable. Early afternoon, patient had a fall event. He slipped on the floor, landed on his knees and buttock. X-ray hip/knee/tibia and fibula ordered, no fractures. He denies dizziness, denies hitting head. Physical Exam Physical Exam: Constitutional: Awake, alert oriented x 3; not in distress. Respiratory: Bilateral vesicular breath sound Cardiovascular: RRR, no murmur, no edema Vessels: no JVD or carotid bruit Chest: normal inspection of chest Abdomen: Distended, nontender. Musculoskeletal: no cyanosis or clubbing, extremities motor strength 5/5. 2+ pitting edema present in bilateral lower extremity Skin: no rashes, warm and dry normal turgor Neurologic: PERRL, EOMI, accommodation nl, no face palsy, no dysarthria CN's II- XI intact bilaterally and moves all extremities Psychiatric: A+Ox3, euthymic affect Results & Data Results & Data Vital Signs (Past 12 Hours) Vital Signs Temp Pulse Resp BP Pulse Ox O2 Del Method 09/27/23 15:22 37.0 C 138 H 20 127/74 96 Room Air 09/27/23 08:15 36.5 C 117 H 18 160/70 H 99 Room Air
--- NOTE | 2023-09-27 19:23 | XRay Report ---
SINGLE VIEW CHEST CLINICAL HISTORY: Dyspnea FINDINGS: 2 AP, portable, upright chest radiographs are compared to study dated 09/25/2023. The examina tion is degraded by portable technique and apical lordotic position. A right-sided central venous inf usion port is unchanged in position. The cardiomediastinal silhouette is top normal for projection. T here are low lung volumes with dependent atelectasis. The lungs and pleural spaces are otherwise rebecca r. No pneumothorax is seen. The bony thorax is grossly intact. IMPRESSION: No acute cardiopulmonary abnormality. ACT 112: Negative or not required by law. Electronically signed by: Danial Morgan M.D. 09/27/2023 7:22 PM
[2023-09-27] MEDS: MAGNESIUM SULFATE / D5W 1 GM/100 ML BAG IV ONE (20:04)
[2023-09-27] MEDS ORDERED: METOPROLOL TARTRATE 25 MG TAB PO SCH (21:00)
[2023-09-27] MEDS: DICLOFENAC SOD 1% GEL 100 GM TUBE EXT SCH (21:28)
[2023-09-27] MEDS: OPTIRAY 320 125ml IV ONE (22:21)
--- NOTE | 2023-09-27 22:39 | CT Scan Report ---
Exam(s): CTA CHEST IV Amt: 115 ml optiray 320 EXAM: CT Angiography Chest With Intravenous Contrast CLINICAL HISTORY: Reason for exam: sob. TECHNIQUE: Axial computed tomographic angiography images of the chest with intravenous contrast. CTDI is 47.4 mGy and DLP is 780.36 mGy-cm. Automated exposure control was utilized for the study. A dose lowering technique was utilized adhering to the principles of ALARA. MIP reconstructed images were created and reviewed. COMPARISON: No relevant prior studies available. FINDINGS: Pulmonary arteries: Unremarkable. No acute pulmonary embolism. Aorta: No acute findings. No thoracic aortic aneurysm. Lungs: Unremarkable. No mass. No consolidation. Pleural space: Unremarkable. No significant effusion. No pneumothorax. Heart: Cardiomegaly. No significant pericardial effusion. No evidence of RV dysfunction. Bones/joints: No acute fracture. No dislocation. Soft tissues: Unremarkable. Lymph nodes: Unremarkable. No enlarged lymph nodes. Liver: Hepatic steatosis and hepatic metastasis. Intraperitoneal space: Abdominal and pelvic ascites. IMPRESSION: 1. No acute pulmonary embolism. 2. Hepatic steatosis and hepatic metastasis. 3. Abdominal and pelvic ascites. 4. No focal infiltrate, pleural effusion, or pneumothorax. Electronically signed by: Tristan Rojas MD 09/27/23 22:39 PM
[2023-09-28 05:03] LABS: BUN Creatinine Ratio 29.8 (10-20); Calcium 8.1 mg/dl (8.6-10.3); Creatinine Clr Calc Pharmacy 83.1 ml/min; Est GFR (African American) 67.6 ml/min; Est GFR (Non-African American) 58.3 ml/min; Phosphorus 3.3 mg/dl (2.5-4.9); Potassium 3.9 mmol/L (3.5-5.1)
[2023-09-28 05:24] LABS: Hematocrit (blood only) 20.1 % (42.0-52.0); Hemoglobin 6.8 g/dl (14.0-18.0); Mean Corpuscular Hemoglobin 34.3 pg (25.0-34.0); Mean Corpuscular Hgb Conc 33.8 g/dL (32.0-36.0); Mean Corpuscular Volume 101.5 fL (80.0-100.0); Mean Platelet Volume 12.7 fL (9.4-12.4); Platelet Count 192 K/uL (130-400); RDW Coefficient of Variation 26.4 % (11.5-14.5); RDW Standard Deviation 91.8 fL (36.4-46.3); Red Blood Count 1.98 M/uL (4.70-6.10); White Blood Count 4.13 K/ul (4.8-10.8)
--- NOTE | 2023-09-28 05:32 | Communication Note ---
Date of Service: September 28, 2023 Made aware by RN of a.m. hemoglobin of 6.8 from 8.1 yesterday. No overt bleeding as per RN. AP Acute on chronic anemia Recheck H&H with type and screen at 8 AM Defer discussion regarding blood transfusion between patient and AM provider. Hold heparin subcu for now
--- NOTE | 2023-09-28 07:11 | Electrocardiogram Report ---
Test Reason : Blood Pressure : / mmHG Vent. Rate : 092 BPM Atrial Rate : 092 BPM P-R Int : 132 ms QRS Dur : 094 ms QT Int : 392 ms P-R-T Axes : 044 031 034 degrees QTc Int : 484 ms Normal sinus rhythm Cannot rule out Anterior infarct , age undetermined Abnormal ECG When compared with ECG of 19-SEP-2023 16:04, No significant change was found Confirmed by Enzo Delgado ([id number]) on 09/28/2023 7:11:06 AM Referred By: REFERRED SELF Confirmed By:Enzo Delgado
[2023-09-28] MEDS ORDERED: SODIUM CHLORIDE 0.9% 250 ML IV PRN (08:38)
[2023-09-28 09:12] LABS: Hematocrit (blood only) 21.4 % (42.0-52.0)
--- NOTE | 2023-09-28 09:42 | Nephrology Progress Note ---
Date of Service September 28, 2023 Assessment & Plan Admission and Anticipated Discharge Date Admission Date: September 25, 2023 Subjective Subjective Assessment & Plan (1) ALL (acute kidney injury): This is new baseline renal function with Worsened liver status. renal function will continue to get worse in the coming days Unfortunately. 25%Albumin. one more day but will also do Iv lasix 40 q8h with it Lasix for Symptom relief as does have a lot of edema. Creat Actually got better even with iv lasix so will continue same. Daily CMP and CBC (2) Ascites: Daily standing weight S---No new issues. He is weak and Appears to have Some Breathing problem also Physical Exam Constitutional: well developed, + cachectic, + frail appearing and + lethargic. no acute distress ENMT: dry oral mucous membranes Neck: no nuchal rigidity Respiratory: normal respiratory effort Auscultation: + diminished lung sounds and + crackles (L base) Cardiovascular: Rate/Rhythm: regular rate and regular rhythm Extremities: + edema (3+ BLE) Gastrointestinal (Abdomen): Inspection/Auscultation: + abdomen distended and normal bowel sounds Percussion/Palpation: abdomen soft and + fluid wave; abdomen nontender Musculoskeletal: Extremities: strength 5/5 throughout Skin: no rashes, warm and dry Neurologic: avila, fluent speech but quite limited d/t fatigue, no tremor Results & Data Vital Signs (Past 12 Hours) Vital Signs Temp Pulse Pulse Resp BP Pulse Ox O2 Del Method 09/28/23 08:25 98 H 09/28/23 07:27 36.7 C 98 H 16 127/73 97 Room Air 09/28/23 03:34 36.6 C 88 16 116/64 95 Room Air 09/28/23 01:09 36.5 C 98 H 14 112/74 98 Room Air 09/27/23 23:10 37.4 C 98 H 17 142/76 H 98 Room Air 09/27/23 22:10 95 H 09/27/23 22:10 95 H
[2023-09-28] MEDS: ACETAMINOPHEN 325 MG TAB PO ONE (10:15)
[2023-09-28] MEDS: METOPROLOL TARTRATE 25 MG TAB PO SCH (10:17)
[2023-09-28 11:13] LABS: Albumin Peritoneal Fluid < 1.5 gm/dl; Amylase Peritoneal Fluid 13 U/L
[2023-09-28 11:19] LABS: Glucose Peritoneal Fluid 184 mg/dl; LDH Peritoneal Fluid 66 U/L; Lipase Peritoneal Fluid 30 U/L; Total Protein Peritoneal Fluid < 3.0 gm/dl
[2023-09-28 13:08] LABS: Appearance Peritoneal Fluid Clear; Color Peritoneal Fluid Straw; Lymphocytes, Fluid 35 %; Mono,Macrophage,Mesothelial 63 %; Neutrophils, Fluid 2 %; RBC Peritoneal Fluid Auto < 2000 /uL; WBC Peritoneal Fluid Auto 180 /ul (0-300)
--- NOTE | 2023-09-28 14:18 | Ultrasound Report ---
ULTRASOUND-GUIDED PARACENTESIS CLINICAL HISTORY: Ascites PROCEDURE: Procedure and risks were explained. Informed consent was obtained. A final timeout was com pleted. The abdomen was prepped and draped in sterile fashion. 1% buffered lidocaine was utilized for skin anesthesia. Utilizing ultrasound guidance, a 5 [place] safety centesis catheter was advanced into the left lower q uadrant pocket of ascites. Ultrasound images were obtained. 1100 mL of ascites fluid was removed and with 1 L sent to lab for analysis. The catheter was removed and Band-Aid applied. The patient tolerat ed the procedure well. Vital signs will be monitored postprocedure. IMPRESSION: Ultrasound-guided paracentesis as above. Performed, dictated, and signed by Dusty Acuna PA-C; to be co-signed by Dr. Danial Morgan. Electronically signed by: Danial Morgan M.D. 09/28/2023 2:18 PM
[2023-09-28] MEDS ORDERED: LACTULOSE SYRUP 20 GM/30 ML UDC PO PRN (15:41)
--- NOTE | 2023-09-28 15:42 | Hospitalist Progress Note ---
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 Acute kidney injury Metastatic pancreatic cancer Elevated total bilirubin Ascites Patient was recently admitted for abdominal bloating, diarrhea. He underwent paracentesis on 09/20/2023 which did not show any acute finding. Diarrhea resolved after stopping lactulose. History of pancreatic tail adenocarcinoma with liver metastasis. Status post 11 cycles of modified FOLFIRINOX chemotherapy PET/CT done on June 2023 showed overall disease progression in the liver. Currently on single agent gemcitabine weekly x 2 followed by 1 week off. Last dose was September 05 Patient underwent MRCP last admission; no abnormality was found. Did not recommend any other intervention. Patient has significant bilateral edema, abdominal distention along with acute kidney injury on trial of IV albumin with iv lasix. Nephrology consulted for comanagement for ALL and volume overload. Pt being diuresed. s/p paracentesis 09/27 - 1100 ml fluid taken out, f/u on studies. Per prior attending - Discussed goals of care with patient at bedside. Patient has been on treatment for metastatic pancreatic cancer; his recent PET/CT has shown progression of cancer. Patient has large burden of metastatic disease in his liver leading to elevation in bilirubin, liver enzymes and ascites. He had qbio-yn-tffp hospitalization. He developed acute kidney failure as well. Overall, he has poor prognosis. We discussed continuing medical management for the time being to see if they will be successful. If patient continues to decompensate; he wants to to be made comfortable. He does not want aggressive life prolonging measures including chest compressions, ventilator support. CODE STATUS has been changed to DNR/DNI. I discussed this with his POA/brother([phone]); he is also in agreement. Family meeting on 09/27: Ann Marie Funes and Jessica at bedside along with other family members. updated on current status and made aware of poor prognosis. they are acceptable of the fact and are aware pt wishes to be comfort care if pt were to deteriorate acutely. Anemia: Hb dropped to 6.8 in AM of 09/27, likely iso mets cancer. 1 unit prbc 09/27. repeat HnH. Keep HnH > 7, transfuse as needed. fobt neg. 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 difficile colitisC. difficile rule out last admission. No complaint of diarrhea History of gout Allopurinol History of hypertension Will hold lisinopril Continue diltiazem with holding parameters BPH On Proscar GERD On omeprazole DVT prophylaxis: av impulse boot. hep on hold due to anemia Dispo: prognosis remains poor, will continue to work with family for ongoing plan of care. they plan to have family meeting to decide on possible hospice care. Please note the above document was generated using voice recognition software. It may contain grammatical, syntax or spelling errors. Any formal questions or concerns about the content, text or information contained within the body of this dictation should be directly addressed to the provider for clarification Admission and Anticipated Discharge Date Admission Date: September 25, 2023 Subjective Patient seen and examined at bedside. Denies any pain or discomfort. Reports eating okay and moving bowels 2-3 times a day. Tachycardia and sob somewhat resolved w/ blood transfusion in AM Hb dropped to 6.8, fobt neg, holding heparin, av impulse boot for dvt px. Still volume overloaded, nephro managing diuresis. Was oriented in AM, but on and off confused during the day, NH3 uptrending, will hold loperamide and start lactulose with goal of 3-4 bms per day. NH3 in AM. Had family meeting (Jessica, pt's SO; Eric, pt's sons) during the day, updated on current status and made aware of poor prognosis of pancreatic cancer. They understand the poor prognosis and are aware of pt's wish to go to comfort care route if patient were to deteriorate acutely. Physical Exam Physical Exam: Constitutional: Awake, alert oriented x 3; not in distress. Respiratory: Bilateral vesicular breath sound Cardiovascular: RRR, no murmur, no edema Vessels: no JVD or carotid bruit Chest: normal inspection of chest Abdomen: Distended, nontender. Musculoskeletal: no cyanosis or clubbing, extremities motor strength 5/5. 2+ pitting edema present in bilateral lower extremity Skin: no rashes, warm and dry normal turgor Neurologic: PERRL, EOMI, accommodation nl, no face palsy, no dysarthria CN's II- XI intact bilaterally and moves all extremities Psychiatric: A+Ox3, euthymic affect Results & Data Results & Data Vital Signs (Past 12 Hours) Vital Signs Temp Pulse Pulse Resp BP BP BP 09/28/23 14:44 36.8 C 94 H 16 134/72 09/28/23 13:25 36.5 C 96 H 16 102/64 09/28/23 12:25 36.7 C 96 H 18 117/58 L 09/28/23 12:18 37.6 C H 104 H 18 104/81 09/28/23 11:55 37.6 C H 104 H 18 104/81 09/28/23 11:55 37.0 C 102 H 20 120/69 09/28/23 11:38 36.7 C 108 H 20 114/66 09/28/23 11:19 36.3 C L 108 H 20 105/58 L 09/28/23 08:25 98 H 09/28/23 07:27 36.7 C 98 H 16 127/73 Pulse Ox O2 Del Method 09/28/23 14:44 94 09/28/23 13:25 98 09/28/23 12:25 97 09/28/23 12:18 99 Room Air 09/28/23 11:55 99 09/28/23 11:55 98 09/28/23 11:38 99 09/28/23 11:19 100 09/28/23 08:25 09/28/23 07:27 97 Room Air
[2023-09-28] MEDS: hydrOXYzine HCl 25 MG TAB PO PRN (16:18)
[2023-09-28 17:04] LABS: Hematocrit (blood only) 22.3 % (42.0-52.0); Hemoglobin 7.2 g/dl (14.0-18.0)
[2023-09-29 05:33] LABS: Hematocrit (blood only) 21.6 % (42.0-52.0); Mean Corpuscular Hemoglobin 33.3 pg (25.0-34.0); Mean Corpuscular Hgb Conc 32.4 g/dL (32.0-36.0); Mean Corpuscular Volume 102.9 fL (80.0-100.0); Mean Platelet Volume 12.3 fL (9.4-12.4); Nucleated RBC # (auto) 0.02 K/uL (0.00-0.12); Nucleated RBC % (auto) 0.5 %; Platelet Count 185 K/uL (130-400); RDW Coefficient of Variation 25.7 % (11.5-14.5); White Blood Count 3.84 K/ul (4.8-10.8)
[2023-09-29 06:06] LABS: BUN Creatinine Ratio 23.8 (10-20); Calcium 8.1 mg/dl (8.6-10.3); Creatinine Clr Calc Pharmacy 76.2 ml/min; Est GFR (African American) 60.8 ml/min; Est GFR (Non-African American) 52.5 ml/min; Magnesium 1.8 mg/dl (1.7-2.4); Phosphorus 3.2 mg/dl (2.5-4.9); Potassium 4.2 mmol/L (3.5-5.1)
--- NOTE | 2023-09-29 12:06 | Discharge Summary ---
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 Patient was recently in the hospital with moderate ascites and s/p paracentesis done on September 20, 2023 and cytology was benign and also stool studies came back negative and was discharged on loperamide and discontinued lactulose and sepsis was ruled out and SBP was ruled out now comes again because of increasing lower extremity edema with pain and also abdominal distention. Has mild abdominal discomfort. On ambulation gets short of breath. Denies chest pain. Some headache. No runny nose. No cough. No sore throat. Appetite is down. Micturating okay. Resting comfortably and hemodynamics stable. Past medical history. As mentioned above Past surgical history. Colonoscopy. Cystourethroscopy. EGD. EGD with endoscopic ultrasound. Laparoscopic pancreatectomy distal subtotal. Social history. Lives with girlfriend. Quit smoking in October 2022. No alcohol since October 2022. No drug use. Family history. Mother had cirrhosis. Father had heart attack in his 40s. Maternal grandfather had coronary disease. Paternal grandfather had emphysema. Coronary thrombosis. Maternal grandmother had diabetes. Paternal grandmother had coronary disease. Maternal aunt had liver cancer. Maternal uncle had liver cancer. Admission Exam Per Admitting Provider General- Not in distress Head- atraumatic Eyes- PERRL. ENT- oropharynx clear Neck- supple, no JVD. Lungs- clear to auscultation no wheezing or crackles Heart- regular rhythm; no murmur, no gallop. Abdomen- normal bowel sounds, soft, mild distension no tenderness. Extremities- b/l lower extremity gross edema present, chronic skin changes seen. Neuro- alert, oriented PERRL, no facial palsy; no dysarthria; Principal Diagnosis Metastatic pancreatic cancer Ascites Anemia in the setting of advanced cancer Discharge Exam Constitutional: Awake, alert oriented x 3; not in distress. Respiratory: Bilateral vesicular breath sound Cardiovascular: RRR, no murmur, no edema Vessels: no JVD or carotid bruit Chest: normal inspection of chest Abdomen: Distended, nontender. Musculoskeletal: no cyanosis or clubbing, extremities motor strength 5/5. 2+ pitting edema present in bilateral lower extremity Skin: no rashes, warm and dry normal turgor Neurologic: PERRL, EOMI, accommodation nl, no face palsy, no dysarthria CN's II- XI intact bilaterally and moves all extremities Psychiatric: A+Ox3, euthymic affect Discharge Data Allergies Allergy/AdvReac Type Severity Reaction Status Date / Time No Known Allergies Allergy Verified 09/25/23 20:32 Consultations 09/25/23 21:02 ED Decision to Admit Stat 09/26/23 07:38 Consult Nephrology Routine Ordered Studies 09/25/23 18:47 US abdomen ltd ascites Stat 09/26/23 01:42 US venous doppler LE BI Urgent 09/27/23 21:21 CT angio chest PE protocol Stat 09/28/23 14:00 IR paracentesis abd w/img US Routine Hospital Course (1) Ascites: 63-year-old male with past med significant for adenocarcinoma of pancreas with mets to the liver, idiopathic chronic gout, hemochromatosis, portal hypertension with esophageal varices, hypertension, venous stasis dermatitis of both lower extremities, ureteral stricture, osteoarthritis, presents to the hospital due to bilateral leg swelling and slight shortness of breath. He was managed for the following: Acute kidney injury Metastatic pancreatic cancer Elevated total bilirubin Ascites Patient was recently admitted for abdominal bloating, diarrhea. He underwent paracentesis on 09/20/2023 which did not show any acute finding. Diarrhea resol amanda after stopping lactulose. History of pancreatic tail adenocarcinoma with liver metastasis. Status post 11 cycles of modified FOLFIRINOX chemotherapy PET/CT done on June 2023 showed overall disease progression in the liver. Currently on single agent gemcitabine weekly x 2 followed by 1 week off. Last dose was September 05 Patient underwent MRCP last admission; no abnormality was found. Did not recommend any other intervention. Patient has significant bilateral edema, abdominal distention along with acute kidney injury on trial of IV albumin with iv lasix. Nephrology consulted for comanagement for ALL and volume overload. Pt being diuresed. s/p paracentesis /4 - 1100 ml fluid taken out, f/u on studies. Discussed with nephrology, discharging patient on Aldactone and Lasix to help w ith volume overload. Patient being discharged to home with hospice. Per prior attending - Discussed goals of care with patient at bedside. Patient has been on treatment for metastatic pancreatic cancer; his recent PET/CT has shown progression of cancer. Patient has large burden of metastatic disease in his liver leading to elevation in bilirubin, liver enzymes and ascites. He had [id number] hospitalization. He developed acute kidney failure as well. Overall, he has poor prognosis. We discussed continuing medical management for the time being to see if they will be successful. If patient continues to decompensate; he wants to to be made comfortable. He does not want aggressive life prolonging measures including chest compressions, ventilator support. CODE STATUS has been changed to DNR/DNI. I discussed this with his POA/brother([id number]); he is also in agreement. Family meeting on 09/27: Ann Marie Funes and Jessica at bedside along with other family members. updated on current status and made aware of poor prognosis. they are acceptable of the fact and are aware pt wishes to be comfort care if pt were to deteriorate acutely. I also updated patient's brother Gustavo over the phone. Later on family decided among themselves and decided to go home with hospice, communicated to me by the nurses. Anemia: Hb dropped to 6.8 in AM of 09/27, likely iso mets cancer. 1 unit prbc 09/27. repeat HnH. Keep HnH > 7, transfuse as needed. fobt neg. patient feels better today with no subjective shortness of breath and tachycardia has improved. 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 difficile colitisC. difficile rule out last admission. No complaint of diarrhea History of gout Allopurinol History of hypertension Will hold lisinopril Continue diltiazem with holding parameters BPH On Proscar GERD On omeprazole DVT prophylaxis: av impulse boot. hep on hold due to anemia Dispo: Patient is being discharged to home with hospice. Please note the above document was generated using voice recognition software. It may contain grammatical, syntax or spelling errors. Any formal questions or concerns about the content, text or information contained within the body of this dictation should be directly addressed to the provider for clarification Home Health Attestation I certify that this patient is under my care and that I, or a physicians psychology assistant working with me, had a face to-face encounter that meets the home he alth [id number] encounter requirements with this patient. The encounter with the patient was in whole, or in part, for the following medical condition, which is the primary reason for home health care (list medical condition): I certify that, based on my findings, the following services are medically necessary home health services: My clinical findings support the need for the above services because: Further, I certify that my clinical findings support that this patient is homebound (i.e. absences from home require considerable and taxing effort and are for medical reasons or mandaen services or infrequently or of short duration when for other reasons) because: Certification for Home Health Services: Based on the above findings, I certify that this patient is confined to the home and needs intermittent group home care, physical therapy and/or speech therapy or continues to need occupational therapy. The patient is under my care, and I have initiated the establishment of the plan of care. This patient will be followed by a physician who will periodically review the plan of care. Total Time Total Time Spent Total Time Spent (In Minutes): 45 Discharge Plan Discharge Items Patient Disposition: Hospice - Home Reason For Visit: ASCITES AND LWR EXTREMITY PAIN Discharge Diagnosis: Metastatic pancreatic cancer Ascites Anemia in the setting of advanced cancer Activity: Resume your previous activity Non-emergency contact: Primary Care Provider Call non-emergency contact if: you have any medication questions Follow-up/Referrals: [facility] [Primary Care Provider] - Diet: Low Sodium (2gm) Addtl Attending Provider Instructions: You are being discharged to home with hospice. You will be discharged on med ications along with comfort care medications. Hospice provider will continue to evaluate your medications and continue to modify your medication regimen. Pending Studies at Discharge: Yes Stand-Alone Forms[facility] Medications and DC Order Prescriptions: New metoprolol succinate 25 mg tablet extended release 24 hr 25 mg PO DAILY Qty: 30 0RF lactulose 20 gram/30 mL Solution 20 g PO BID PRN (Reason: laxative effect) Qty: 1200 0RF furosemide 20 mg tablet 20 mg PO DAILY Qty: 30 0RF spironolactone 50 mg tablet 50 mg PO DAILY Qty: 30 0RF morphine concentrate 100 mg/5 mL (20 mg/mL) solution 5 mg PO Q4H PRN (Reason: pain) Qty: 30 0RF lorazepam [Ativan] 0.5 mg tablet 0.5 mg PO Q4H PRN (Reason: agitation/anxiety) Qty: 10 0RF hyoscyamine sulfate [Levsin] 0.125 mg tablet 0.125 mg PO Q4H PRN (Reason: dyspepsia) Qty: 10 0RF Continued allopurinol 300 mg tablet 300 mg PO QAM diltiazem HCl 120 mg capsule,extended release 24 hr 120 mg PO DAILY omeprazole 20 mg capsule,delayed release(DR/EC) 20 mg PO DAILYBB finasteride 5 mg tablet 5 mg PO QAM potassium chloride 10 mEq tablet extended release 10 meq PO [facility] Rx Instructions: not filled since 04/04/23 for 30 days magnesium oxide 400 mg magnesium Tablet 400 mg PO QAM silodosin 8 mg capsule 8 mg PO QAM ondansetron HCl 8 mg tablet 8 mg PO Q8 PRN (Reason: Nausea) sennosides [senna] 8.6 mg Tablet 17.2 mg PO HS polyethylene glycol 3350 [Miralax] 17 gram Powder In Packet 17 g PO DAILY PRN (Reason: Constipation) baclofen 10 mg tablet 10 mg PO BID oxycodone 10 mg tablet 10 mg PO Q8H PRN (Reason: pain) Qty: 20 0RF aspirin 81 mg Tablet,Delayed Release (Dr/Ec) 81 mg PO DAILY Discontinued lisinopril 10 mg tablet 10 mg PO DAILY loperamide [Imodium A-D] 2 mg capsule 2 mg PO Q6H PRN (Reason: loose stool) Qty: 30 0RF Discharge Orders: Discharge Order (Routine); Ordered 09/29/23 Ordered By: Nas David Admission Data Admit Date/Time: 09/25/23 23:10 Attending Provider: Nas David Admit Provider: Esau Boudreaux Primary Care Provider: [facility] Other Providers: [facility]; Esau Boudreaux; Faiza Duncan; Jefry Liriano; Rip Madsen; Magalie Peres; Rae Rivas Other Interventions: Discharge Summary Assessment (RN) Last Done: 09/29/23 10:32
--- NOTE | 2023-09-30 01:00 | Electrocardiogram Report ---
Test Reason : Blood Pressure : / mmHG Vent. Rate : 133 BPM Atrial Rate : 133 BPM P-R Int : 122 ms QRS Dur : 082 ms QT Int : 308 ms P-R-T Axes : 054 083 042 degrees QTc Int : 458 ms Sinus tachycardia Low voltage QRS Borderline ECG When compared with ECG of 25-SEP-2023 21:13, (unconfirmed) HR has increased Confirmed by Enzo Delgado ([id number]) on 09/30/2023 12:59:37 AM Referred By: REFERRED SELF Confirmed By:Enzo Delgado
== END 2023-09-29 14:22 | disposition hospice, home (50) | DRG 436 ==
LOC: ED 18:17 → SUATTDRO 23:10 → 3N 23:10 → 2W 09-27 20:01